=== PATIENT | female | born 1995 | race Caucasian/White ===

== ENCOUNTER 2021-09-30 19:08 | Emergency (ER) | payer OTHER, SELFPAY ==
[2021-09-30 19:10] VITALS: RESP 20
--- NOTE | 2021-09-30 19:22 | ED.SEIZURE ---
HPI - Seizure General Chief Complaint: Seizure Stated Complaint: sz Time Seen by Provider: 09/30/21 19:21 History of Present Illness HPI Narrative: 25-year-old female presented to the emergency room with complaints of nausea vomiting that started last night. Patient states that she took Zofran last night without any relief of her symptoms. Patient states this afternoon, she got nauseated, vomited twice and then proceeded to have a pseudoseizure . Patient denies abdominal pain, denies diarrhea, denies constipation. Patient denies fever. Related Data Allergies Allergy/AdvReac Type Severity Reaction Status Date / Time No Known Allergies Allergy Verified 12/23/15 19:46 Review of Systems Review of Systems: CONSTITUTIONAL: Denies fever, chills, or sweats. EYES: Denies visual changes, redness, or discharge. ENT: Denies rhinorrhea, congestion, sore throat, or otalgia. CARDIOVASCULAR: Denies chest pain, palpitations, or edema. RESPIRATORY: Denies cough or dyspnea. GASTROINTESTINAL: Denies abdominal pain. Reports nausea/vomiting GENITOURINARY: Denies dysuria or hematuria. SKIN: Denies rash or itching. MUSCULOSKELETAL: Denies back pain, joint pain, or myalgia. NEUROLOGIC: Denies headache, numbness, dizziness, or weakness. PSYCHIATRIC: Reports having a pseudoseizure. [facility] Past Medical History Medical History (Updated 09/30/21 @ 20:38 by Pepito Du APRN) Pseudoseizure Exam Narrative: GENERAL: Well-appearing, well-nourished, and in no acute distress. HEAD: Normocephalic, atraumatic. EYES: PERRLA and EOMI. ENT: Nares clear, no rhinorrhea or epistaxis. Mucous membranes moist. NECK: Supple. No adenopathy or masses. No carotid bruits or JVD CHEST: Clear to auscultation. No respiratory distress. No wheezes rales or rhonchi HEART: Regular rate and rhythm. No murmur heard. Normal peripheral pulses. ABDOMEN: Soft, nontender, nondistended, normal active bowel sounds. EXTREMITIES: Normal range of motion. No edema. SKIN: Warm, dry, no rash. NEURO: No focal deficits. Alert and oriented x3. PSYCH: Normal mood and affect. Course Vital Signs Vital signs: Vital Signs Respiratory Rate 20 09/30/21 19:10 Respiratory Rate 20 09/30/21 19:10 MDM - Seizure MDM Narrative Medical decision making narrative: 25-year-old female presented the emergency room complaining of nausea vomiting since last night. Patient states that she had a pseudoseizure prior to arrival. Patient was given a liter of fluid and 4 of Zofran, and states that her symptoms have resolved. CBC and CMP are unremarkable. Patient likely experiencing gastritis. Lab Data Attestation: I reviewed the patient's lab results. Result diagrams: 09/30/21 19:45 09/30/21 19:45 Labs: Lab Results 09/30/21 09/30/21 Range/Units 19:45 19:45 WBC 6.8 (4.5-10.0) K/mm3 RBC 4.64 (4.2-5.4) M/mm3 Hgb 14.1 (12.0-15.0) g/dL Hct 40.1 (37.0-47.0) % MCV 86.4 (80-100) fl MCH 30.4 (26-34) pg MCHC 35.2 (32-36) g/dl RDW 12.0 (11.5-14.5) % Plt Count 211 (150-375) k/mm3 MPV 9.3 (7.4-10.4) fl Immature Gran % (Auto) 0.1 (0-0.5) % Neut % (Auto) 80.0 H (45.5-73.1) % Lymph % (Auto) 13.9 L (18.3-44.2) % [place] % (Auto) 5.0 (2.6-8.5) % Eos % (Auto) 0.7 (0-4.4) % Baso % (Auto) 0.3 (0.2-1.2) % Lymph # (Auto) 0.94 (0.9-3.2) K/mm3 [place] # (Auto) 0.3 (0.1-0.6) K/mm3 Eos # (Auto) 0.1 (0-0.3) K/mm3 Baso # (Auto) 0.0 (0.0-0.1) K/mm3 Abs Immat Gran (auto) 0.01 (0.00-0.031) K/mm3 Absolute Neuts (auto) 5.4 (1.3-6.7) K/mm3 Absolute Nucleated RBC 0.0 (0.0-0.012) K/mm3 Nucleated RBC % 0.0 (0.0-0.2) % Sodium 138 (137-145) mmol/L Potassium 3.5 (3.4-5.0) mmol/L Chloride 104 (98-107) mmol/L Carbon Dioxide 27 (22-30) mmol/L Anion Gap 7 L (8-16) mmol/L BUN 12 (7-17) mg/dL Creatinine 0.70 (0.7-1.0) mg/dL Estim Creat Clear Calc 125 ml/min Estim
[2021-09-30] MEDS: SODIUM CHLORIDE 0.9% IV 1,000 ML 999 ML IV CONT (19:44)
[2021-09-30] MEDS: ONDANSETRON INJ 4 MG/2 ML VIAL IV PUSH (19:44)
[2021-09-30] MEDS: DICYCLOMINE HCL INJ 20 MG/2 ML VIAL IM (19:51)
[2021-09-30 19:53] LABS: Basophils Percent Auto 0.3 % (0.2-1.2); Eosinophils Absolute Auto 0.1 K/mm3 (0-0.3); Eosinophils Percent Auto 0.7 % (0-4.4); Hematocrit 40.1 % (37.0-47.0); Hemoglobin 14.1 g/dL (12.0-15.0); Immature Granulocyte Absolute 0.01 K/mm3 (0.00-0.031); Immature Granulocyte Percent A 0.1 % (0-0.5); Lymphocytes Absolute Auto 0.94 K/mm3 (0.9-3.2); Lymphocytes Percent Auto 13.9 % (18.3-44.2); Mean Corpuscular HGB Conc 35.2 g/dl (32-36); Mean Corpuscular Hemoglobin 30.4 pg (26-34); Mean Corpuscular Volume 86.4 fl (80-100); Mean Platelet Volume 9.3 fl (7.4-10.4); Monocytes Absolute Auto 0.3 K/mm3 (0.1-0.6); Neutrophils Absolute Auto 5.4 K/mm3 (1.3-6.7); Platelet Count Result 211 k/mm3 (150-375); Red Blood Count 4.64 M/mm3 (4.2-5.4); White Blood Count 6.8 K/mm3 (4.5-10.0)
[2021-09-30 20:00] VITALS: PULSE 60
[2021-09-30 20:04] LABS: Alanine Aminotransferase 20 U/L (4-35); Albumin Level 4.2 g/dL (3.5-5.1); Alkaline Phosphatase 71 U/L (38-126); Anion Gap 7 mmol/L (8-16); Aspartate Amino Transferase 25 U/L (14-36); Bilirubin,Total 2.4 mg/dL (0.2-1.3); Blood Urea Nitrogen 12 mg/dL (7-17); Calcium 8.5 mg/dL (8.4-10.2); Carbon Dioxide 27 mmol/L (22-30); Chloride 104 mmol/L (98-107); Estimated CRCL calculation 125 ml/min; Estimated Glomerular Filt Rate > 60; Glucose 98 mg/dL (65-110); Potassium 3.5 mmol/L (3.4-5.0); Sodium 138 mmol/L (137-145)
[2021-09-30 20:45] VITALS: BP 109/81; PULSE 60; RESP 19; O2SAT 100
== END 2021-09-30 21:04 | disposition home or self-care (01) ==
PROVIDERS: Emergency Provider Nurse Practitioner Family; PCP Family Medicine
DX: K29.00 Acute gastritis without bleeding (principal)
CPT/HCPCS: 36415; 80053; 85025; 96361; 96372; 96374; 99284; J0500; J2405; J7030

== ENCOUNTER 2021-11-28 19:04 | Emergency (ER) | payer OTHER, SELFPAY ==
[2021-11-28 19:34] VITALS: BP 95/49; PULSE 91; RESP 18; TEMP 36.5; O2SAT 95
--- NOTE | 2021-11-28 19:40 | PC.NURSE ---
Addendum entered by Norma Harris RN 11/28/21 19:58: Pt completely neurological intake and A&Ox4 upon leaving triage to sit in waiting room. Original Note: Pt noted to have seizure like activity in triage directly after pt stated, Am I going to be getting a bed right away? . See triage note for information on seizure like activity. Pt was seen by MD Thornton and placed to sit in bench in front of intake desk. medical technician also made aware.
[2021-11-28 20:35] LABS: Basophils Percent Auto 0.1 % (0.2-1.2); Eosinophils Percent Auto 0.3 % (0-4.4); Hematocrit 46.5 % (37.0-47.0); Hemoglobin 15.9 g/dL (12.0-15.0); Immature Granulocyte Absolute 0.02 K/mm3 (0.00-0.031); Immature Granulocyte Percent A 0.2 % (0-0.5); Lymphocytes Absolute Auto 0.84 K/mm3 (0.9-3.2); Lymphocytes Percent Auto 8.6 % (18.3-44.2); Mean Corpuscular HGB Conc 34.2 g/dl (32-36); Mean Corpuscular Hemoglobin 30.1 pg (26-34); Mean Corpuscular Volume 88.1 fl (80-100); Mean Platelet Volume 9.4 fl (7.4-10.4); Monocytes Absolute Auto 0.4 K/mm3 (0.1-0.6); Monocytes Percent Auto 4.2 % (2.6-8.5); Neutrophils Absolute Auto 8.5 K/mm3 (1.3-6.7); Neutrophils Percent Auto 86.6 % (45.5-73.1); Platelet Count Result 255 k/mm3 (150-375); Red Blood Count 5.28 M/mm3 (4.2-5.4); Red Cell Distribution Width 11.9 % (11.5-14.5); White Blood Count 9.8 K/mm3 (4.5-10.0)
[2021-11-28 20:39] LABS: Appearance Urine Clear (Clear); Bilirubin Urine 1+ (Negative); Blood Urine Negative (Negative); Color Urine Yellow (Yellow); Glucose Urine UA Negative (Negative); Ketones Urine Trace mg/dL (Negative); Leukocyte Esterase Ur 1+ LEU/UL (Negative); Nitrate Urine Negative (Negative); Protein Urine Negative (Negative); Specific Grav Ur 1.025 (1.001-1.035); Urobilinogen Urine 0.2 mg/dL (<2.0)
[2021-11-28 20:43] LABS: Bacteria Urine Trace /hpf; Mucus Urine Rare /lpf; Squamous Epithelial Cell Urine Many /hpf (Few)
[2021-11-28 20:45] LABS: Alanine Aminotransferase 22 U/L (6-35); Alkaline Phosphatase 85 U/L (38-126); Anion Gap 9 mmol/L (8-16); Aspartate Amino Transferase 26 U/L (14-36); Bilirubin,Total 2.7 mg/dL (0.2-1.3); Blood Urea Nitrogen 10 mg/dL (7-17); Calcium 9.5 mg/dL (8.4-10.2); Carbon Dioxide 27 mmol/L (22-30); Chloride 102 mmol/L (98-107); Estimated CRCL calculation 107 ml/min; Estimated Glomerular Filt Rate > 60; Glucose 99 mg/dL (65-110); Lipase 44 U/L (23-300); Potassium 3.7 mmol/L (3.4-5.0); Sodium 138 mmol/L (137-145)
[2021-11-28 20:57] LABS: Add Urine Microscopic? YES
[2021-11-28 21:00] VITALS: BP 126/74; PULSE 74; RESP 16; O2SAT 99
--- NOTE | 2021-11-28 21:00 | ED.NAVMDI ---
HPI - Nausea/Vomiting/Diarrhea General Chief complaint: Nausea/Vomiting/Diarrhea Stated complaint: N/V/D SINCE THIS MORNING Time Seen by Provider: 11/28/21 20:51 Source: patient and RN notes reviewed Mode of arrival: ambulatory Limitations: no limitations History of Present Illness HPI Narrative: This is a 26 year old female with history of anxiety and pseudoseizure who presents for evaluation of nausea, vomiting and diarrhea. Patient states she woke up this morning with nausea, vomiting and nonbloody diarrhea. She reports she is having numerous episodes of diarrhea and emesis. She also reports constant mid abdominal pain that is nonradiating. She denies cold symptoms. Related Data Allergies Allergy/AdvReac Type Severity Reaction Status Date / Time No Known Allergies Allergy Verified 12/23/15 19:46 Review of Systems Review of Systems: All systems reviewed & are unremarkable except as noted in HPI and below Constitutional: Constitutional: Denies chills and Denies fever(s) Cardiovascular: Cardiovascular: Denies chest pain Respiratory: Respiratory: Denies cough and Denies dyspnea Gastrointestinal: Gastrointestinal: Reports abdominal pain, Reports diarrhea, Reports nausea and Reports vomiting Genitourinary: Genitourinary: Denies hematuria [facility] Past Medical History Medical History (Updated 11/28/21 @ 23:50 by Andree Yadav MD) Anxiety Pseudoseizure Surgical History Surgical History (Updated 11/28/21 @ 22:03 by Andree Yadav MD) History of appendectomy Social History Social History (Updated 11/28/21 @ 22:04 by Andree Yadav MD) Smoking status: Never smoker Exam Const: General: alert Orientation/consciousness: patient oriented x3 Eyes: EOM: EOMs intact bilaterally Resp: Effort & Inspection: normal respiratory effort and no retractions Auscultation: clear to auscultation bilaterally Cardio: Rate: regular rate Rhythm: regular rhythm Heart sounds: no murmurs GI: GI Palp: Yes Soft to palpation, Yes Tenderness to palpation present (GI) (epigastric, LUQ), No Guarding due to palpation present (GI) and No Rigid due to palpation Auscultation: normal bowel sounds Skin: General skin exam: normal color Rashes: no rashes Neuro: General: patient oriented x3, moves all extremities and CN's II-XI intact bilaterally Psych: Mental Status: mental status grossly normal Affect: normal affect Course Reevaluation(s) Reevaluation #1: Patient states she feels much better and she is ready for discharge home. She denies nausea, vomiting or abdominal pain. She has been able to drink water. labs are unremarkable. Date: 11/28/21 Time: 23:49 Vital Signs Vital signs: Vital Signs Temperature 97.7 F 11/28/21 19:34 Pulse Rate 91 11/28/21 19:34 Respiratory Rate 18 11/28/21 19:34 Blood Pressure 95/49 L 11/28/21 19:34 Pulse Oximetry 95 11/28/21 19:34 Temperature 97.8 F 11/28/21 22:08 Pulse Rate 72 11/29/21 00:01 Respiratory Rate 16 11/29/21 00:01 Blood Pressure 130/72 11/29/21 00:01 Pulse Oximetry 98 11/29/21 00:01 MDM - Nausea/Vomiting/Diarrhea Lab Data Attestation: I reviewed the patient's lab results. Result diagrams: 11/28/21 20:30 11/28/21 20:30 Labs: Lab Results 11/28/21 11/28/21 11/28/21 Range/Units 20:30 20:30 20:30 WBC 9.8 (4.5-10.0) K/mm3 RBC 5.28 (4.2-5.4) M/mm3 Hgb 15.9 H (12.0-15.0) g/dL Hct 46.5 (37.0-47.0) % MCV 88.1 (80-100) fl MCH 30.1 (26-34) pg MCHC 34.2 (32-36) g/dl RDW 11.9 (11.5-14.5) % Plt Count 255 (150-375) k/mm3 MPV 9.4 (7.4-10.4) fl Immature Gran % (Auto) 0.2 (0-0.5) % Neut % (Auto) 86.6 H (45.5-73.1) % Lymph % (Auto) 8.6 L (18.3-44.2) % [place] % (Auto) 4.2 (2.6-8.5) % Eos % (Auto) 0.3 (0-4.4) % Baso % (Auto) 0.1 L (0.2-1.2) % Lymph # (Auto) 0.84 L (0.9-3.2) K/mm3 [place] # (Auto) 0.4 (0.1-0.6) K/mm3
[2021-11-28] MEDS: ONDANSETRON INJ 4 MG/2 ML VIAL IV PUSH (21:28)
[2021-11-28] MEDS: DICYCLOMINE HCL INJ 20 MG/2 ML VIAL IM (21:28)
[2021-11-28] MEDS: SODIUM CHLORIDE 0.9% IV 1,000 ML 999 ML IV CONT (21:29)
[2021-11-28] MEDS: PANTOPRAZOLE SODIUM IV 40 MG VIAL IV PUSH (21:29)
[2021-11-28 22:08] VITALS: BP 116/70; PULSE 70; RESP 16; TEMP 36.6; O2SAT 100
[2021-11-29 00:01] VITALS: BP 130/72; PULSE 72; RESP 16; O2SAT 98
== END 2021-11-29 00:04 | disposition home or self-care (01) ==
PROVIDERS: Emergency Provider General Practice; PCP Family Medicine
DX: K52.9 Noninfective gastroenteritis and colitis, unspecified (principal)
CPT/HCPCS: 36415; 80053; 81001; 81025; 83690; 85025; 87086; 96361; 96372; 96374; 96375; 99284; C9113; J0500; J2405; J7030

== ENCOUNTER 2022-06-09 11:32 | Emergency (ER) | payer OTHER, SELFPAY ==
[2022-06-09 12:55] VITALS: BP 133/84; PULSE 93; RESP 16; TEMP 38.1; O2SAT 100
--- NOTE | 2022-06-09 13:38 | ED.URI ---
HPI - URI/Sore Throat General Chief Complaint: Upper Respiratory Infection Stated Complaint: sob/cp Time Seen by Provider: 06/09/22 13:41 Source: patient, RN notes reviewed and old records reviewed Mode of arrival: ambulatory Limitations: no limitations History of Present Illness HPI Narrative: 26-year-old female presents to the [facility] with complaints of cough and congestion since 2:00 a.m. has not taken anything for her symptoms. Exposures to RSV Patient also reports low back pain. States that her mom has bulging discs. States her back pain has been significant since her last was it was in 2019, 2 years ago. Denies any abdominal pain. No urinary symptoms. No frequency, urgency or burning. No loss or retention of bowel or bladder. No rashes noted. No saddle anesthesia. No numbness or tingling in extremities Related Data Home Medications Medication Instructions Recorded Confirmed aripiprazole 5 mg tablet 5 mg DAILY 06/09/22 06/09/22 buspirone 7.5 mg tablet 7.5 mg DAILY 06/09/22 06/09/22 clonazepam 0.5 mg tablet 0.5 mg DAILY 06/09/22 06/09/22 levonorgestrel 20 mcg/24 hours (8 1 device intrauterine ONCE 06/09/22 06/09/22 yrs) 52 mg intrauterine device (Mirena) Allergies Allergy/AdvReac Type Severity Reaction Status Date / Time No Known Allergies Allergy Verified 06/09/22 13:12 Review of Systems Review of Systems: All systems reviewed & are unremarkable except as noted in HPI and below Constitutional: Constitutional: Reports no additional constitutional complaints, Denies chills and Denies fever(s) Eyes: Eyes: Reports no additional eye complaints ENT: Reports system reviewed and no additional complaints, except as documented Cardiovascular: Cardiovascular: Reports no additional cardiovascular complaints Respiratory: Respiratory: Reports as per HPI, Reports chest congestion, Reports cough and Denies dyspnea Gastrointestinal: Gastrointestinal: Reports no additional gastrointestinal complaints Musculoskeletal: Musculoskeletal: Reports as per HPI Integumentary/Breasts: Skin/Breast: Reports system reviewed and no additional complaints, except as docu Neurologic: Reports system reviewed and no additional complaints, except as documented Psychiatric: Psychiatric: Reports no additional psychiatric complaints Allergic/Immunologic: Allergic/Immunologic: Reports no additional allergic/immunologic complaints PMFSH Past Medical History Medical History Anxiety Pseudoseizure Surgical History Surgical History History of appendectomy Social History Social History Smoking status: Never smoker Comments At the time of my signature, I reviewed and agree with the nursing past medical, surgical, social, and family history. There is no relevant family history pertinent to the patient complaint. Exam Const: General: healthy appearing, no acute distress, well developed, alert, uncomfortable and well nourished Nutritional Appearance: well nourished and obese Orientation/consciousness: patient oriented x3 Limitations: no limitations HENMT: Head: normal to inspection Ears: external ears normal, TM's normal bilaterally and EAC's normal Face/Nose/Sinus: Normal external nose present Face and sinus: normal facial exam Throat: posterior oropharynx normal and uvula midline Eyes: General: appearance normal, both eyes and all related structures Conjunctivae: conjunctivae normal Pupils: Equal, round and reactive pupils present Neck: Neck: normal visual inspection, full ROM, no lymphadenopathy and no meningeal signs Chest: Chest palpation & inspection: normal inspection of the chest Resp: Effort & Inspection: normal respiratory effort and no use of accessory muscles Auscultation: clear to auscultation bilaterally, no crackles, no rales, no
== END 2022-06-09 13:57 | disposition home or self-care (01) ==
PROVIDERS: Emergency Provider Nurse Practitioner; PCP Family Medicine
DX: J06.9 Acute upper respiratory infection, unspecified (principal); M54.50 Low back pain, unspecified; F41.9 Anxiety disorder, unspecified
CPT/HCPCS: 99213; G0463

== ENCOUNTER 2023-04-24 12:00 | Emergency (ER) | payer OTHER, SELFPAY ==
[2023-04-24] VITALS (13 sets, daily range): BP systolic 84–115; BP diastolic 61–92; PULSE 68–82; RESP 11–18; TEMP 36.5; O2SAT 99–100
--- NOTE | 2023-04-24 14:02 | PC.NURSE ---
told by Leticia Nava RN that pt standing outside her door requesting to leave. IV removed per Leticia TERRAZAS. Pt left - states her gait was steady.
== END 2023-04-24 14:22 | disposition left against medical advice (07) ==
LOC: ANHED 14:10
PROVIDERS: PCP Family Medicine
DX: G40.909 Epilepsy, unspecified, not intractable, without status epilepticus (principal)
CPT/HCPCS: 99199

== ENCOUNTER 2023-08-04 17:15 | Emergency (ER) | payer OTHER, SELFPAY ==
--- NOTE | 2023-08-04 17:22 | ED.GENADULT ---
HPI - General Adult General Chief complaint: Upper Respiratory Infection Stated complaint: cough,chest congestion Time Seen by Provider: 08/04/23 17:35 Source: patient, RN notes reviewed and old records reviewed Mode of arrival: ambulatory Limitations: no limitations History of Present Illness HPI narrative: 27-year-old female presents to the [facility] with complaints of chest congestion and cough for 2 days. States that she took 1 leftover amoxicillin and 1 left over prednisone. Denies taking any other medications Denies fevers Onset (ago): day(s) (2) Related Data Home Medications Medication Instructions Recorded Confirmed clonazepam 0.5 mg tablet 0.5 mg DAILY 06/09/22 08/04/23 levonorgestrel 21 mcg/24 hours (8 1 device intrauterine ONCE 06/09/22 08/04/23 yrs) 52 mg intrauterine device (Mirena) lamotrigine 100 mg tablet mg 08/04/23 08/04/23 Allergies Allergy/AdvReac Type Severity Reaction Status Date / Time No Known Allergies Allergy Verified 08/04/23 17:42 Review of Systems Review of Systems: All systems reviewed & are unremarkable except as noted in HPI and below Constitutional: Constitutional: Reports no additional constitutional complaints Eyes: Eyes: Reports no additional eye complaints ENT: Reports as per HPI and Reports nasal congestion Cardiovascular: Cardiovascular: Reports no additional cardiovascular complaints, Denies chest pain and Denies dyspnea Respiratory: Respiratory: Reports as per HPI, Reports chest congestion, Reports cough and Denies dyspnea Gastrointestinal: Gastrointestinal: Reports no additional gastrointestinal complaints, Denies abdominal pain, Denies nausea and Denies vomiting Musculoskeletal: Musculoskeletal: Reports no additional musculoskeletal complaints Integumentary/Breasts: Skin/Breast: Reports system reviewed and no additional complaints, except as docu Neurologic: Reports system reviewed and no additional complaints, except as documented Psychiatric: Psychiatric: Reports no additional psychiatric complaints Allergic/Immunologic: Allergic/Immunologic: Reports no additional allergic/immunologic complaints PMFSH Past Medical History Medical History Anxiety Pseudoseizure Surgical History Surgical History History of appendectomy Social History Social History Smoking status: Never smoker Comments At the time of my signature, I reviewed and agree with the nursing past medical, surgical, social, and family history. There is no relevant family history pertinent to the patient complaint. Exam Const: General: cooperative, healthy appearing, comfortable, no acute distress, well developed, alert and well nourished Nutritional Appearance: well nourished and obese Orientation/consciousness: patient oriented x3 Limitations: no limitations HENMT: Head: normal to inspection Ears: hearing grossly normal bilaterally, external ears normal, EAC's normal and TM abnormal wth effusion serous bilateral and scarred bilateral; not bulging, not erythematous and with no loss of landmarks Face/Nose/Sinus: Normal external nose present, Normal nares present, Normal nasal mucous membranes and turbinates present, normal facial exam and face symmetric Face and sinus: normal facial exam and face symmetric Mouth: Yes Normal oral and palatal mucosa present, Yes lip normal and Yes moist mucous membranes Throat: posterior oropharynx normal, uvula midline and postnasal drainage Eyes: General: appearance normal, both eyes and all related structures Alignment and Position: alignment normal Periorbital: periorbital findings normal Pupils: Equal, round and reactive pupils present EOM: EOMs intact bilaterally Neck: Neck: normal visual inspection, full ROM, no lymphadenopathy and no meningeal signs Chest: Chest palpation & insp
[2023-08-04 17:36] VITALS: BP 134/92; PULSE 96; RESP 18; TEMP 36.9; O2SAT 98
== END 2023-08-04 18:02 | disposition home or self-care (01) ==
PROVIDERS: Emergency Provider Nurse Practitioner; PCP Family Medicine
DX: J40 Bronchitis, not specified as acute or chronic (principal); F41.9 Anxiety disorder, unspecified
CPT/HCPCS: 99213; G0463

== ENCOUNTER 2024-03-11 19:28 | Emergency (ER) | payer OTHER, SELFPAY ==
[2024-03-11 19:32] VITALS: BP 134/96; PULSE 98; RESP 19; TEMP 36.6; O2SAT 99
[2024-03-11 19:37] VITALS: O2SAT 99
[2024-03-11 19:47] LABS: Basophils Percent Auto 0.3 % (0.2-1.2); Eosinophils Absolute Auto 0.1 K/mm3 (0-0.3); Eosinophils Percent Auto 1.7 % (0-4.4); Hematocrit 40.6 % (37.0-47.0); Hemoglobin 13.9 g/dL (12.0-15.0); Immature Granulocyte Absolute 0.01 K/mm3 (0.00-0.031); Immature Granulocyte Percent A 0.2 % (0-0.5); Lymphocytes Absolute Auto 1.84 K/mm3 (0.9-3.2); Lymphocytes Percent Auto 31.1 % (18.3-44.2); Mean Corpuscular HGB Conc 34.2 g/dl (32-36); Mean Corpuscular Hemoglobin 30.2 pg (26-34); Mean Corpuscular Volume 88.1 fl (80-100); Mean Platelet Volume 9.5 fl (7.4-10.4); Monocytes Absolute Auto 0.4 K/mm3 (0.1-0.6); Monocytes Percent Auto 5.9 % (2.6-8.5); Neutrophils Absolute Auto 3.6 K/mm3 (1.3-6.7); Neutrophils Percent Auto 60.8 % (45.5-73.1); Platelet Count Result 223 k/mm3 (150-375); Red Blood Count 4.61 M/mm3 (4.2-5.4); Red Cell Distribution Width 11.6 % (11.5-14.5); White Blood Count 5.9 K/mm3 (4.5-10.0)
--- NOTE | 2024-03-11 19:49 | ED.GENADULT ---
HPI - General Adult General Chief complaint: Seizure Stated complaint: seizure Time Seen by Provider: 03/11/24 19:35 History of Present Illness HPI narrative: Patient is a 28-year-old female who presents to the emergency department this evening due to seizure episode that occurred at work. Patient was assisted to the ground by staff members prior to seizure activity as patient had an aura. Patient does have a history of pseudoseizures and states that she has had multiple CTs MRIs in the past and follows up with a neurologist. EMS states the patient was postictal when they arrived. On route to the emergency department EMS states that patient had another seizure-like activity in which they administered 5 mg of IV Versed. Upon arrival to the ED patient is awake but drowsy. She denies any recent illness, any recent falls or trauma. No additional symptoms or concerns at this time. Related Data Home Medications Medication Instructions Recorded Confirmed clonazepam 0.5 mg tablet 0.5 mg DAILY 06/09/22 08/04/23 levonorgestrel 21 mcg/24 hr (up to 1 device intrauterine ONCE 06/09/22 08/04/23 8 years) 52 mg intrauterine device (Mirena) lamotrigine 100 mg tablet mg 08/04/23 08/04/23 Allergies Allergy/AdvReac Type Severity Reaction Status Date / Time No Known Allergies Allergy Verified 08/04/23 17:42 Review of Systems Review of Systems: All systems are reviewed and are negative unless stated otherwise in the HPI. [facility] Past Medical History Medical History Anxiety Pseudoseizure Surgical History Surgical History History of appendectomy Social History Social History Smoking status: Never smoker Exam Narrative: General: Alert, awake, afebrile, in no acute distress. HEENT: PERRL, no rhinorrhea, no post nasal drip, oropharynx clear. Cardiovascular: Regular rate and rhythm, no murmurs, rubs or gallops, no peripheral edema. Respiratory: Clear to auscultation bilaterally, no tachypnea, no wheezing, no rhonchi, no rubs, no respiratory distress. Abdomen: Soft, nontender, nondistended, no rebound, no guarding, no peritoneal signs. Musculoskeletal: No joint swelling or deformity, normal muscle tone. Skin: No rashes or petechia, no signs of infection. Neurological: Alert and oriented to person, place, and time. Follows all commands. No focal deficits, speech is clear and fluent. Course Vital Signs Vital signs: Vital Signs Temperature 97.8 F 03/11/24 19:32 Pulse Rate 98 03/11/24 19:32 Respiratory Rate 19 03/11/24 19:32 Blood Pressure 134/96 H 03/11/24 19:32 Pulse Oximetry 99 03/11/24 19:32 Oxygen Delivery Room Air 03/11/24 19:32 Temperature 97.8 F 03/11/24 19:32 Pulse Rate 98 03/11/24 19:32 Respiratory Rate 19 03/11/24 19:32 Blood Pressure 134/96 H 03/11/24 19:32 Pulse Oximetry 99 03/11/24 19:37 Oxygen Delivery Room Air 03/11/24 19:37 Medical Decision Making MDM Narrative Medical decision making narrative: The patient was evaluated by myself in the emergency department. History is obtained from patient who is an independent historian and physical exam was performed. External medical records were reviewed at this time. IV was established and pertinent tests were ordered. EKG was obtained which revealed sinus rhythm rate of 70 beats per minute, no evidence of acute ischemia. EKG was independently interpreted by me and is currently pending official cardiology read. Laboratory results obtained revealing no acute process. Urinalysis unremarkable. Differential diagnosis considerations include seizure disorder, dehydration, electrolyte derangements. Comorbidities impacting this visit include history of stones or seizures. I have evaluated and discussed social determinants of health with the shaun
[2024-03-11 19:58] LABS: Alanine Aminotransferase 42 U/L (6-35); Albumin Level 4.3 g/dL (3.5-5.1); Alkaline Phosphatase 82 U/L (38-126); Anion Gap 12 mmol/L (4-12); Aspartate Amino Transferase 33 U/L (14-36); Bilirubin,Total 0.6 mg/dL (0.2-1.3); Blood Urea Nitrogen 15 mg/dL (7-17); Calcium 8.8 mg/dL (8.4-10.2); Carbon Dioxide 24 mmol/L (22-30); Chloride 99 mmol/L (98-107); Creatine Kinase 84 U/L (30-135); Estimated CRCL calculation 111 ml/min; Estimated Glomerular Filt Rate > 60; Glucose 98 mg/dL (65-110); Potassium 3.5 mmol/L (3.4-5.0); Sodium 135 mmol/L (137-145)
[2024-03-11 20:07] LABS: SPREG INTERNAL CONTROL Positive; Serum Qual hCG Negative
[2024-03-11 21:13] LABS: Add Urine Microscopic? NO; Appearance Urine Clear (Clear); Bilirubin Urine Negative (Negative); Blood Urine Negative (Negative); Color Urine Yellow (Yellow); Glucose Urine UA Negative (Negative); Ketones Urine Negative (Negative); Leukocyte Esterase Ur Negative LEU/UL (Negative); Nitrate Urine Negative (Negative); Protein Urine Negative (Negative); Specific Grav Ur 1.011 (1.001-1.035); Urobilinogen Urine 0.2 mg/dL (<2.0); pH Urine 6.5 (5.0-9.0)
[2024-03-11 21:40] VITALS: BP 130/86; PULSE 78; RESP 14; O2SAT 100
--- NOTE | 2024-03-12 03:23 | ECG_ITS ---
Test Date: 2024-03-11 19:37:53 Measurements Intervals [place] Rate: 70 P: 31 DC: 152 QRS: 25 QRSD: 102 T: 14 QT: 392 QTc: 425 Interpretive Statements SINUS RHYTHM NORMAL ELECTROCARDIOGRAM No previous ECG available for comparison Electronically Signed On 03-13-2024 12:52:52 CDT by Compa Mccoy M.D.
== END 2024-03-11 21:41 | disposition home or self-care (01) ==
PROVIDERS: Emergency Provider Emergency Medicine; PCP Family Medicine
DX: R56.9 Unspecified convulsions (principal); F41.9 Anxiety disorder, unspecified; Z97.5 Presence of (intrauterine) contraceptive device; Z79.899 Other long term (current) drug therapy
CPT/HCPCS: 36415; 80053; 81003; 82550; 83605; 83735; 84703; 85025; 93005; 99283

== ENCOUNTER 2024-06-25 08:31 | Emergency (ER) | payer SELFPAY ==
--- NOTE | 2024-06-25 08:45 | ED_ITS ---
HPI - URI/Sore Throat General Chief Complaint: Upper Respiratory Infection Stated Complaint: cough,irritated throat Time Seen by Provider: 06/25/24 09:27 Source: patient and RN notes reviewed Mode of arrival: ambulatory Limitations: no limitations History of Present Illness HPI Narrative: 28-year-old female presents concern for 3 day history of cough and irritated throat. She denies fever, body aches, chills, sweats. She denies taking any medications for her symptoms. Her son has similar symptoms MD elicited complaint: cough and sore throat Related Data Home Medications ?Medication ?Instructions ?Recorded ?Confirmed ?Last Taken ?Type clonazepam 0.5 mg tablet 0.5 mg DAILY 06/09/22 08/04/23 Unknown History levonorgestrel 21 mcg/24 hr (up to 1 device intrauterine ONCE 06/09/22 08/04/23 Unknown History 8 years) 52 mg intrauterine device (Mirena) lamotrigine 100 mg tablet mg 08/04/23 08/04/23 Unknown History Allergies Allergy/AdvReac Type Severity Reaction Status Date / Time No Known Allergies Allergy Verified 08/04/23 17:42 Review of Systems Review of Systems: CONSTITUTIONAL: Denies malaise, chills, sweats, or fever. EYES: Denies visual changes, redness, or discharge. ENT: Denies rhinorrhea, congestion, sinus pain, otalgia. Reports sore throat. CARDIOVASCULAR: Denies chest pain, palpitations, or edema. RESPIRATORY: Reports cough. Denies dyspnea. GASTROINTESTINAL: Denies abdominal pain, nausea, vomiting, diarrhea SKIN: Denies rash or itching. MUSCULOSKELETAL: Denies myalgia. NEUROLOGIC: Denies headache. All systems reviewed & are unremarkable except as noted in HPI and below PMFSH Past Medical History Medical History Anxiety Pseudoseizure Surgical History Surgical History History of appendectomy Social History Social History Smoking status: Never smoker Comments At time of signature, agree with nursing past medical, surgical, social and family history. There is no relevant family history pertinent to the presenting complaint Exam Narrative: GENERAL: Well-appearing, well-nourished, and in no acute distress. HEAD: Normocephalic EYES: PERRLA, conjunctivae clear ENT: Nares clear, turbinates edematous and erythematous, clear discharge. Mucous membranes moist. TM pearly de león with dull light reflex bilaterally; no tragal tenderness. Oropharynx erythematous without lesions. Tonsils not enlarged and without exudate, no drooling, no hoarseness, no trismus, uvula midline. NECK: Supple. No lymphadenopathy CHEST: Clear to auscultation, breath sounds equal. No wheezing, rhonchi, rales, or stridor. No respiratory distress, speaks in full sentences. HEART: Regular rate and rhythm. No murmur heard. SKIN: Warm, dry, no rash. NEURO: Alert and oriented x3. PSYCH: Normal mood and affect Course Course Emergency Course: Patient is aware of diagnosis, understands and agrees to treatment plan. Anticipatory guidance given. Patient agrees to follow-up as directed and is aware of reasons to seek care at the emergency department. Portions of this record may have been created with voice recognition software Level of Care: [facility] Visit Vital Signs Vital signs: Reviewed. MDM - URI/Sore Throat MDM Narrative Medical decision making narrative: Differential diagnosis considered: Sanchez virus, strep pharyngitis, allergic rhinitis, upper respiratory tract infection, sinusitis, rhinosinusitis, nasopharyngitis. viral pharyngitis, otitis media, otitis externa, pneumonia, bronchitis, viral cough syndrome, viral syndrome, and influenza. Exam findings show no acute concerns or changes; patient is non-toxic appearing and is in no distress. Patient is appropriate for outpatient treatment and follow-up. Lab Data Attestation: I reviewed the patient's lab results. Critical Care Time Critical Care Time Critical Care Time: No Discharge Plan Discharge Clinical Impression: Upper respiratory infection Patient Disposition: Home, Self-Care Condition: Stable Instructions: Upper Respiratory Infection (ED) Additional Instructions: Your rapid strep swab was negative today at [facility]. A throat culture will be sent to the laboratory for further testing. If the test is positive, you will receive a phone call within 48 hours and an appropriate antibiotic will be initiated at that time. Your symptoms are likely due to a viral illness, which is not treated with antibiotics. Viral symptoms can be present for up to a few weeks. -Alternate Tylenol and Motrin per package directions for fever or pain. -Antihistamine medication such as Benadryl at night and Zyrtec during the day can help improve symptoms. -Eat and drink things that are easy to swallow, like tea or soup, or popsicles to suck on. -Oral rinses such as: Salt water gargles and/or may use topical anesthetic (eg. Chloraseptic spray) or lozenges to relieve dryness or throat pain). -Frequent hand washing or hand traffic control operator is one of the best ways to prevent spread of infection. -Follow up with primary care provider in 2-3 days if condition is not improving; or seek ER visit if you have trouble breathing, cannot drink enough fluids, have muffled voice, difficulty opening your mouth, or severe swelling. Patient Language: Zambian Prescriptions: New dextromethorphan-guaifenesin [Mucinex DM] 60-1,200 mg tablet extended release 12 hr 1 tablet PO Q12H Qty: 12 0RF No Action lamotrigine 100 mg tablet prednisone 20 mg tablet See Rx Instructions .Route .COMPLEX Qty: 9 0RF Rx Instructions: Take 40 mg daily for 3 days, 20 mg daily for 3 days albuterol sulfate 90 mcg/actuation HFA aerosol inhaler 2 puff inhalation QID PRN (Reason: shortness of breath or wheezing) Qty: 6.7 0RF (DME) Aerochamber MV Spacer See Rx Instructions .Route Qty: 1 0RF Rx Instructions: As directed clonazepam 0.5 mg tablet 0.5 mg DAILY Mirena 20 mcg/24 hours (8 yrs) 52 mg Intrauterine Device 1 device INTRAUTERINE ONCE Rx Instructions: as a single dose Follow-up/Referrals: PHYSICIAN NOT ON STAFF,NONSTAFF [Primary Care Provider] - Time of Disposition: 09:55
[2024-06-25 08:50] VITALS: BP 136/98; PULSE 78; RESP 19; TEMP 36.2; O2SAT 100
[2024-06-25 09:50] LABS: EDSTREPNEGPOS1 Negative (Negative)
== END 2024-06-25 10:00 | disposition home or self-care (01) ==
PROVIDERS: Emergency Provider Nurse Practitioner
DX: J06.9 Acute upper respiratory infection, unspecified (principal); F41.9 Anxiety disorder, unspecified; R56.9 Unspecified convulsions
CPT/HCPCS: 87081; 87880; 99213; G0463

== ENCOUNTER 2024-12-08 09:35 | Emergency (ER) | payer OTHER, SELFPAY ==
--- OUTSIDE RECORDS SUMMARY | 2024-12-08 09:37 | XMS_ITS | Referral Summary ---
Author Organization [facility] Address [address] [place] [address] Care Team Providers Care Yard Rigger Name Role Phone Unknown, Notinfile Primary Care Provider Unavail able Allergies No known active allergies Medications ARIPiprazole (ABILIFY) 2 mg tablet Take 1 tablet (2 mg total) by mouth daily Active clonazePAM (KlonoPIN) 0.5 mg tablet Take 1 tablet (0.5 mg total) by mouth 2 (two) times a day as needed 05/25/2021 Active prochlorperazin e (COMPAZINE) 10 mg tablet Take 1 tablet (10 mg total) by mouth 2 (two) times a day as needed for nausea or vomiting 10 tablet 05/28/2024 Active Active Problems Problem Noted Date Diagnosed Date Chronic nonintractable headache 06/02/2024 Assessment & Plan (06/02/2024 11:51 AM DEPUTY PROSECUTING ATTORNEY): No papilledema on multiple exams, HVF and OCT without concerning findings. Okay to resume eye care locally or call if any visual changes. Social History Tobacco Use Types Packs/Day Years Used Date Smoking Tobacco: Never Tobacco Cessation:Counseling Given: Not Answered Personal Safety Answer Date Recorded Have you ever been in or are you currently in a harmful physical or emotional relationship or is someone making you feel afraid or unsafe? Denies 05/28/2024 Comments No Sex and Gender Information Value Date Recorded Sex Assigned at Not on file Legal Sex Female 4:24 AM DEPUTY PROSECUTING ATTORNEY Gender Identity Not on file Sexual Orientation Not on file Last Filed Vital Signs Vital Sign Reading Time Taken Comments Blood Pressure 128/95 05/28/2024 3:31 PM DEPUTY PROSECUTING ATTORNEY Pulse 70 05/28/2024 3:31 PM DEPUTY PROSECUTING ATTORNEY Temperature 36.7 C (98.1 F) 05/28/2024 11:51 AM DEPUTY PROSECUTING ATTORNEY Respiratory Rate 16 05/28/2024 3:31 PM DEPUTY PROSECUTING ATTORNEY Oxygen Saturation 99% 05/28/2024 3:31 PM DEPUTY PROSECUTING ATTORNEY Inhaled Oxygen Concentration - - Weight 104.3 kg (229 lb 15 oz) 05/28/2024 11:51 AM DEPUTY PROSECUTING ATTORNEY Height 165.1 cm (5' 5) 05/28/2024 11:51 AM DEPUTY PROSECUTING ATTORNEY Body Mass Index 38.26 05/28/2024 11:51 AM DEPUTY PROSECUTING ATTORNEY Plan of Treatment Not on file Insurance Care Teams Yard Rigger Relationship Specialty Start Date End Date Unknown, Notinfile PCP - General 05/22/24
--- OUTSIDE RECORDS SUMMARY | 2024-12-08 09:37 | XMS_ITS | Clinical Summary ---
Author Organization [facility] Address [address] [place] [address] Care Team Providers Care Director Veterinary Name Role Phone Unavailable Primary Care Provider Unavailabl e Source Comments [facility],non-owned Affiliates and Associated Physician Practices is amultiple site organization consisting of ambulatory clinics and hospital sitesin [place], [place], [place] and [place]. This disclosure is being madepursuant to the Care Everywhere program and may not contain all information available regarding this patient. Last updated 18.[facility] Interactive Project Allergies No known active allergies Medications * Be aware that medications may not be up to date on this document. Alwaysverify current medications with the patient. clonazePAM (KLONOPIN) 0.5 MG tablet Take 0.5 mg by mouth 2 times daily as needed for Anxiety Active Active Problems Problem Noted Date Diagnosed Date Acute left ankle pain 11/04/2015 Left ankle pain 10/07/2015 Syncope 01/23/2013 Immunizations Immunization Administration Dates Next Due INFLUENZA VACCINE 08/01/2013 Social History Tobacco Use Types Packs/Day Years Used Date Smoking Tobacco: Never Smokeless Tobacco: Never Alcohol Use Standard Drinks/Week Comments No 0 (1 standard drink = 0.6 oz pur e alcohol) Comments No Sex and Gender Information Value Date Recorded Sex Assigned at Not on file Legal Sex Female 5:38 AM MANAGEMENT REP Gender Identity Not on file Sexual Orientation Not on file Last Filed Vital Signs Vital Sign Reading Time Taken Comments Blood Pressure 133/94 02/27/2014 11:49 PM CDT Pulse 82 02/27/2014 11:49 PM CDT Temperature 37.2 C (99 F) 11/04/2015 1:31 PM CDT Respiratory Rate 18 11/04/2015 1:31 PM CDT Oxygen Saturation 100% 02/26/2014 5:33 AM CDT Inhaled Oxygen Concentration - - Weight 93.4 kg (205 lb 14.6 oz) 11/04/2015 1:31 PM CDT Height 169 cm (5' 6.54) 11/04/2015 1:31 PM CDT Body Mass Index 32.7 11/04/2015 1:31 PM CDT Plan of Treatment Health Maintenance Due Date Last Done Comments PAP SMEAR 1997 HIV SCREENING 2012 HEPATITIS C SCREENING 11/05/2015 DTAP/TDAP/TD VACCINES (1 - Tdap) 2016 HEPATITIS B VACCINE (1 of 3 - 19+ 3-dose series) 2016 COVID-19 VACCINE (1 - 2023-2 5 season) 2024 DEPRESSION SCREENING 07/16/2024 INFLUENZA VACCINE (Season Ended) 2025 08/01/19 14 ZOSTER VACCINE (1 of 2) 11/10/2047 HIB VACCINE Aged Out No longer eligi ble based on patient's age to complete this topic HPV VACCINE Aged Out No longer eligi ble based on patient's age to complete this topic MENINGOCOCCAL (Group B) VACC INE SHARED DECISION-MAKING Aged Out No longer eligibl e based on patient's age to complete this topic MENINGOCOCCAL GROUPS A/C/Y/W VACCINE Aged Out No longer eligible b ased on patient's age to complete this topic PNEUMOCOCCAL VACCINE Aged Out No long er eligible based on patient's age to complete this topic Insurance [facility]
--- OUTSIDE RECORDS SUMMARY | 2024-12-08 09:37 | XMS_ITS | Clinical Summary ---
Author Organization [facility] Address [address] [place] [address] Care Team Providers Care Heel Scorer Name Role Phone Unknown, Notinfile Primary Care [...] 06/02/2024 Assessment & Plan (06/02/2024 11:51 AM TUBE BUILDER AIRPLANE): No papilledema on multiple exams, HVF and OCT without concerning findings. Okay to resume eye care locally or call if any visual changes. Surgical History Surgery Date Site/Laterality Comments SECTION ANKLE LIGAMENT RECONSTRUCTION Left APPENDECTOMY Social History Tobacco Use Types Packs/Day Years [...] on file Legal Sex Female 4:24 AM TUBE BUILDER AIRPLANE Gender Identity Not on file Sexual Orientation Not on file Obstetrics History Last Filed Vital Signs Vital Sign Reading Time Taken Comments Blood Pressure 128/95 05/28/2024 3:31 PM TUBE BUILDER AIRPLANE Pulse 70 05/28/2024 3:31 PM TUBE BUILDER AIRPLANE Temperature 36.7 C (98.1 F) 05/28/2024 11:51 AM TUBE BUILDER AIRPLANE Respiratory Rate 16 05/28/2024 3:31 PM TUBE BUILDER AIRPLANE Oxygen Saturation 99% 05/28/2024 3:31 PM TUBE BUILDER AIRPLANE Inhaled Oxygen Concentration - - Weight 104.3 kg (229 lb 15 oz) 05/28/2024 11:51 AM TUBE BUILDER AIRPLANE Height 165.1 cm (5' 5) 05/28/2024 11:51 AM TUBE BUILDER AIRPLANE Body Mass Index 38.26 05/28/2024 11:51 AM TUBE BUILDER AIRPLANE Plan of Treatment Health Maintenance Due Date Last Done Comments Cervical Cancer Screening 1997 Depression Screening 1997 Hepatitis C Screening 1997 Regular Well Visit/Exam 18-64 11/10/2015 Influenza Vaccine (Season Ended) 2025 04/03/2017, 07/05/2016, 08/01/2013, Additional history exists DTaP/Tdap/Td Vaccine (11 - Td or Tdap) 02/10/2030 02/11/2020, 11/16/2016, 02/02/2013, Additional history exists Hepatitis B Screening Completed 08/18/1998 , 1997, 1997 Pneumococcal vaccine <65 Completed 03/04/2001 Varicella Vaccines Completed 01/27/2009, 06/02/1999 HPV Vaccines Aged Out No longer eligi ble based on patient's age to complete this topic Insurance [facility] Care Teams Heel Scorer Relationship Specialty Start Date End Date Unknown, Notinfile PCP - General 05/22/24
--- OUTSIDE RECORDS SUMMARY | 2024-12-08 09:37 | XMS_ITS | Data Portability ---
Author Organization [facility] [place], Main Office Address [address] [place] [address] Assessment No assessment recorded. Plan of Treatment Reminders Order Date Submit Date Provider Last Modified By Organization Details Last Modified Time Details Appointments None recorded. Lab hemoglobin A1C, fingerstick 2024 025 [facility], [address] [place] [address], [address], 14:50:47 microalbumi n, dipstick, urine 2024 025 [facility] (Lab), [address] [place], [address], 5 09:00:16 lipid panel, serum 2023 024 [facility] (Lab), [address] [place], [address], 4 16:48:00 TSH, serum or plasma 2023 024 [facility] (Lab), [address] [place], [address], 4 16:48:00 CBC w/ auto diff 2023 024 [facility] (Lab), [address] [place], [address], 4 16:48:00 glycohemogl obin, total, blood 2023 024 [facility] (Lab), [address] [place], [address], 4 16:47:59 CMP, serum or plasma 2023 [facility] ([facility]), [address] [facility], [place], [address], 4 16:47:59 Referral ophthalmolo gist referral - Please call patient to schedule an appointment . Thank you. 2023 024 [email or web address], [address] , [place], [address], 08:54:14 neurologist referral - Please call patient to schedule an appointment . Thank you. 2023 024 [email or web address] Gildardo Chao MD, [address], [place], [address], 08:53:39 Procedures None recorded. Surgeries None recorded. Imaging XR, lumbosacral spine, 2 or 3 view 2023 024 [facility] - Radiology New Fax # As Of 11/05/23), [address] [place], [address], 4 11:53:03 XR, pelvis 2023 024 [facility] - Radiology New Fax # As Of 11/05/23), [address] [place], [address], 4 12:09:37 Medication Orders amoxicillin 875 mg-potassiu m clavulanate 125 mg tablet 2024 025 [facility][id number], [address] [place], [place], [id number], 5 14:52:04 lisinopril 10 mg tablet 2024 025 [facility] #98834, [address], [place], [id number], 12:56:00 lisinopril 10 mg tablet 2023 024 [facility] #[id number], [address], [place], [id number], 12:39:26 diclofenac sodium 75 mg tablet,megan yed release 2023 024 [facility] #66781, [address], [place], [id number], 10:18:42 Patient TargetsNo targets recorded. Patient Instructions Encounter Date Encounter Id Patient Instructions Last Modified By Organization Details Last Modified Time 11/28/2024 [id number] albumin urine test: about this test [facility] Not available 11/28/2024 14:42:29 Reason for Referral Neurologist Referral for Sta tus migrainosus Please call patient to schedule an appointment. Thank you. Referring Physician: Elin Chau [facility], Encounter Date: 05/28/2024 Modern [employer]cer Referral for Visual disturbance Please call patient to schedule an appointment. Thank you. Referring Physician: Elin Chau [facility], Encounter Date: 05/28/2024 Results Created Date Observation Date Name Description Value Unit Range Abnormal Flag Note LastModifiedBy Organization Detail LastModifiedTime 11/29/1911/28/2024 hemog lobin A1C, finge rstic k HgbA1C 4.8 Not Available [facility]_[address], [place], [address], 11/28/2024 14:27:36 03/19/20 24 03/19/2024 XR, lumbo sacra l spine , 2 or 3 view No observ ation record ed. [facility] [address] [place], [address], 03/19/2024 12:28:24 03/19/20 24 03/19/2024 XR, pelvi s No observ ation record ed. [facility] [address], [place], [address], 03/19/2024 12:28:25 11/20/19 25 11/19/2024 lumba r punct ure (PROC ) No observ ation record ed. [facility]: Pulmonology [address] [facility], [place], [address], 11/19/2024 13:16:26 Result Notes None recorded. Problems Name Problem SNOMED Code Status Onset Date Resolution Date Notes Provider Name and Address Organization Details Recorded Time Hypoglycemia 260426917 Active 2023 MILLIE Jose [address], [address], [place], [address], [employer] 4 10:43:26 Sacral back pain 54574916 Active 2023 MILLIE Jose [address], [address], [place], [address], [employer] 4 10:45:11 Obesity 555404163 Active 2023 MILLIE Jose [address], [address], [place], [address], [employer] 4 10:51:57 Bipolar disorder 62049225 Active 2023 MILLIE Jose [address], [address], [place], [address], [employer] 4 10:52:07 Low back pain 745661544 Active 2023 MILLIE Jose [address], [address], [place], [address], [employer] 4 12:28:56 Essential hypertension 95691162 Active 2023 Lore Cesar RN null, [place] [employer] [facility] 5 14:08:03 Migraine with aura 5757574 Active 2023 MILLIE Jose [address] [facility] [place] [address], [place], [address], [employer] [facility] [place] 4 10:28:40 Status migrainosus 836478718 Active 2023 MILLIE Jose [address] [facility], [place] [address], [place], [address], [employer] [facility] 4 10:47:52 Visual disturbance 79981532 Active 2023 MILLIE Jose [address] [facility], [place] [address], [place], [address], [employer] 4 10:48:10 Mass of body structure 245627951 Active 2024 MILLIE Jose [address] [facility], [place] [address], [place], [address], [employer] 5 12:58:13 Ketonuria 270562880 Active 2024 MILLIE Jose [address] [facility], [place] [address], [place], [address], [employer] 5 14:26:44 Fever with chills 578374458 Active 2024 MILLIE Jose [address] [address], [place], [address], [employer] 5 14:27:54 Problem Notes None recorded. Procedures Surgical History Date Name Laterality Status Provider Name and Address Organization Details Recorded Time 07/16/19 20 delivery completed Lore Cesar RN [facility] 03/19/2024 10:32:57 delivery completed Corby Cesar RN [facility] 03/19/2024 10:32:43 Appendectomy completed Lore Cesar RN [facility] 03/19/2024 10:33:05 tonsillectomy and adenoidectomy completed Lore Cesar RN [facility] 03/19/2024 10:33:19 Imaging Results None recorded. Procedure Notes None recorded. Medical Equipment None Reported. Allergies Allergen ID Allergen Name Allergen Category Reaction Reaction Severity Criticality Documentation Date Start Date Code Code System Note Provider Name and Address Organization Details Recorded Time 62771 [facility] medicatio n seizure moderate Not available 03/19/2024 12453 61 RxNorm suici catalina Lore Cesar RN [facility] 10:22:59 Medications Name Sig Start Date Stop Date Status Note LastModified by Organization Details LastModified Time quetiapine 25 mg tablet TAKE 1 TO 2 TABLETS BY MOUTH EVERY DAY IN THE MORNING 03/19 completed Not Available Not Available Not Available lamotrigine 150 mg tablet TAKE 1 TABLET BY MOUTH DAILY 03/19 completed Not Available Not Available Not Available venlafaxine ER 37.5 mg capsule,ext ended release 24 hr TK 1 C PO QD 03/19 completed Not Available Not Available Not Available venlafaxine ER 75 mg capsule,ext ended release 24 hr TK 1 C PO QD 03/19 completed Not Available Not Available Not Available lamotrigine 200 mg tablet TAKE 1 TABLET BY MOUTH DAILY 03/19 completed Not Available Not Available Not Available azithromyci n 250 mg tablet TAKE 2 TABLETS BY MOUTH FOR 1 DAY THEN TAKE 1 TABLET BY MOUTH DAILY FOR 4 DAYS 03/19 completed Not Available Not Available Not Available sumatriptan 25 mg tablet 11/21 completed Not Available Not Available Not Available prednisone 20 mg tablet TAKE 2 TABLETS BY MOUTH DAILY FOR 3 DAYS THEN TAKE 1 TABLET BY MOUTH DAILY FOR 3 DAYS 03/19 completed Not Available Not Available Not Available clonazepam 0.5 mg tablet TAKE 1 TABLET BY MOUTH EVERY DAY FOR 15 DAYS NEEDED FOR SEVERE ANXIETY 03/19 completed Not Available Not Available Not Available metronidazo le 250 mg tablet 03/19 completed Not Available Not Available Not Available clonazepam 1 mg tablet TAKE 1/2 TABLET BY MOUTH ONCE PER DAY NEEDED FOR SEVERE ANXIETY. 03/19 completed Not Available Not Available Not Available lithium carbonate ER 300 mg tablet,exte nded release TAKE 2 TABLETS BY MOUTH DAILY AT BEDTIME FOR 7 DAYS 11/21 completed Not Available Not Available Not Available topiramate 25 mg tablet Take 1 tablet every day by oral route as directed for 90 days. active Not Available Not Available No t Available acetaminoph en 300 mg-codeine 30 mg tablet TK 2 TS PO Q 6 H PRF PAIN 03/19 completed Not Available Not Available Not Available prochlorper azine maleate 10 mg tablet TAKE 1 TABLET BY MOUTH TWICE DAILY NEEDED FOR NAUSEA OR VOMITTING 11/21 completed Not Available Not Available Not Available ciprofloxac in 500 mg tablet TAKE ONE T PO BID STARTING Sunday05-20-1603/19 completed Not Available Not Available Not Available sulfamethox azole 800 mg-trimetho prim 160 mg tablet TK 1 TABLET PO Q 12 HOURS 03/19 completed Not Available Not Available Not Available tramadol 50 mg tablet TK 1 TO 2 TS PO Q 6 H PRF PAIN 03/19 completed Not Available Not Available Not Available amoxicillin 500 mg tablet 03/19 completed Not Available Not Available Not Available lithium carbonate ER 450 mg tablet,exte nded release TAKE 2 TABLETS BY MOUTH DAILY AT BEDTIME FOR 15 DAYS 11/21 completed Not Available Not Available Not Available lamotrigine 25 mg tablet TAKE 1 TABLET BY MOUTH EVERY DAY FOR TOTAL DOSE OF 175MG 03/19 completed Not Available Not Available Not Available meloxicam 7.5 mg tablet Take 1 tablet twice a day by oral route as needed for 30 days. 03/25 completed Not Available Not Available Not Available citalopram 20 mg tablet TK ONE T PO D 03/19 completed Not Available Not Available Not Available lorazepam 0.5 mg tablet TAKE 2 TO 3 TABLETS BY MOUTH DAILY NEEDED active Not Available Not Available No t Available doxycycline monohydrate 100 mg capsule 03/19 completed Not Available Not Available Not Available lisinopril 10 mg tablet TAKE 1 TABLET BY MOUTH EVERY DAY DIRECTED active Not Available Not Available No t Available divalproex ER 500 mg tablet,exte nded release 24 hr TAKE 1 TABLET BY MOUTH DAILY AT NIGHT 11/21 completed Not Available Not Available Not Available promethazin e 25 mg tablet TAKE ONE T PO EVERY SIX HOURS PRN FOR NAUSEA/VO MITING 03/19 completed Not Available Not Available Not Available polymyxin B sulfate 10,000 unit-trimet hoprim 1 mg/mL eye drops INSTILL 2 DROPS IN LEFT EYE Q 6 H FOR 4 DAYS UTD. 03/19 completed Not Available Not Available Not Available sertraline 25 mg tablet TK 1 T PO QD 03/19 completed Not Available Not Available Not Available diclofenac sodium 75 mg tablet,megan yed release TAKE 1 TABLET BY MOUTH TWICE DAILY NEEDED 05/21 completed Not Available Not Available Not Available Miconazole- 7 100 mg vaginal suppository INSERT 1 SUPPOSITO RY BY VAGINAL ROUTE D HS FOR 7 DAYS 03/19 completed Not Available Not Available Not Available hydrochloro thiazide 25 mg tablet 11/21 completed Not Available Not Available Not Available albuterol sulfate HFA 90 mcg/actuati on aerosol inhaler INHALE 2 PUFFS FOUR TIMES DAILY NEEDED 03/19 completed Not Available Not Available Not Available ondansetron 4 mg disintegrat ing tablet DIS 1 T ON THE TONGUE Q 8 H 03/19 completed Not Available Not Available Not Available lamotrigine 100 mg tablet TAKE 1 TABLET BY MOUTH EVERY DAY 03/19 completed Not Available Not Available Not Available amoxicillin 875 mg-potassiu m clavulanate 125 mg tablet TAKE 1 TABLET BY MOUTH TWICE DAILY DIRECTED X 7 DAYS active Not Available Not Available No t Available hydroxyzine pamoate 25 mg capsule 03/19 completed Not Available Not Available Not Available clonazepam 0.5 mg disintegrat ing tablet DISSOLVE 1 TABLET ON TONGUE EVERY DAY FOR 2 DAYS 11/21 completed Not Available Not Available Not Available topiramate 50 mg tablet TAKE 1 TABLET BY MOUTH EVERY DAY 03/19 completed Not Available Not Available Not Available nitrofurant oin monohydrate /macrocryst als 100 mg capsule 03/19 completed Not Available Not Available Not Available chlorhexidi ne gluconate 0.12 % mouthwash FOLLOW PACKAGE DIRECTION S 03/19 completed Not Available Not Available Not Available aripiprazol e 2 mg tablet TAKE 1 TABLET BY MOUTH DAILY 05/09 /2025 completed Not Available Not Available Not Available quetiapine ER 150 mg tablet,exte nded release 24 hr TAKE 1 TABLET BY MOUTH EVERY DAY AT NIGHT 03/19 completed Not Available Not Available Not Available ProChamber USE WITH INHALER DIRECTED 03/19 completed Not Available Not Available Not Available Lybalvi 5 mg-10 mg tablet TAKE 1 TABLET BY MOUTH DAILY 05/21 completed Not Available Not Available Not Available Vitals Date Recorded Body height Body mass index (BMI) Body weight Body temperature Oxygen saturation Oxygen saturation in Arterial blood by Pulse oximetry Heart rate Systolic And Diastolic Provider Name and Address Organization Details Last Updated DateTime 5 167.64 cm 32 kg/m2 45679.3 9 g 97.4 [degF] 98 % 98 % 75 /min 150/100 mm[Hg] Annel Messer RN [facility] [employer] 5 12:36:44 Date Recorded Body height Body mass index (BMI) Body weight Body temperature Heart rate Respiratory rate Oxygen saturation Oxygen saturation in Arterial blood by Pulse oximetry Systolic And Diastolic Provider Name and Address Organization Details Last Updated DateTime 5 167.64 cm 31.8 kg/m2 66390.7 g 97.9 [degF] 70 /min 20 /min 99 % 99 % 140/100 mm[Hg] Lore Cesar RN [facility] 5 14:12:37 Date Recorded Body weight Body mass index (BMI) Body height Body temperature Heart rate Respiratory rate Oxygen saturation Oxygen saturation in Arterial blood by Pulse oximetry Systolic And Diastolic Provider Name and Address Organization Details Last Updated DateTime 4 419947. 63 g 36.3 kg/m2 167.64 cm 97.9 [degF] 85 /min 20 /min 98 % 98 % 134/102 mm[Hg] Lore Cesar RN [facility] [place] 4 10:35:27 Date Recorded Body height Body mass index (BMI) Body weight Body temperature Heart rate Respiratory rate Oxygen saturation Oxygen saturation in Arterial blood by Pulse oximetry Systolic And Diastolic Provider Name and Address Organization Details Last Updated DateTime 4 167.64 cm 37.6 kg/m2 218786. 07 g 97.3 [degF] 71 /min 20 /min 99 % 99 % 140/96 mm[Hg] Lore Cesar RN [facility] [employer] [facility] 4 10:21:13 Date Recorded Body height Body mass index (BMI) Body weight Body temperature Heart rate Respiratory rate Oxygen saturation Oxygen saturation in Arterial blood by Pulse oximetry Systolic And Diastolic Provider Name and Address Organization Details Last Updated DateTime 167.64 cm 36.7 kg/m2 106499. 92 g 97.9 [degF] 92 /min 20 /min 99 % 99 % 160/100 mm[Hg] Lore Cesar RN [facility] [employer] [facility] 4 10:28:39 Social History Question Answer Notes LastModified by Organizat ion Details LastModified Time Tobacco Smoking Status Former Smoker Lore Cesar RN [facility] [employer] [facility] 03/19/2024 10:36:37 Do You Have An Advance Directive? No Information n ot available 03/19/2024 What Is Your Level Of Caffeine Consumption? Moderate Information not available 03/19/2024 In The 14 Days Before Symptom Onset, Have You Had Close Contact With A Laboratory-confirm ed COVID-19 While That Case Was Ill? No Information n ot available 03/19/2024 In The 14 Days Before Symptom Onset, Have You Had Close Contact With A Person Who Is Under Investigation For COVID-19 While That Person Was Ill? No Information not available 03/19/2024 What Type Of Diet Are You Following? REGULAR Information n ot available 03/19/2024 Which Illicit Or Recreational Drugs Have You Used? Mj Information not available 03/19/2024 How Many Days Of Moderate To Strenuous Exercise, Like A Brisk Walk, Did You Do In The Last 7 Days? 2 Information not available 03/19/2024 On Those Days That You Engage In Moderate To Strenuous Exercise, How Many Minutes, On Average, Do You Exercise? 45 Information not available 03/19/2024 Have There Been Any Changes To Your Family Or Social Situation? No Information no t available 03/19/2024 Are There Any Guns Present In Your Home? No Information not available 03/19/2024 Do You Use Insect Repellent Routinely? No Information not available 03/19/2024 Where Do You Live? Apartment Inform ation not available 03/19/2024 Do You Have A Medical Power Of Punch Molder? No Information not available 03/19/2024 How Many Children Do You Have? 2 Information not available 03/19/2024 Do You Have Any Pets? No Information not available 03/19/2024 What Is Your Relationship Status? Single Information not available 03/19/2024 Do You Use Your Seat Belt Or Car Seat Routinely? Yes Information not available 03/19/2024 Do You Have Smoke And Carbon Monoxide Detectors In Your Home? Yes Information not available 03/19/2024 Are You Passively Exposed To Smoke? Yes Information no t available 03/19/2024 Are There Any Smokers In Your House? No Information not available 03/19/2024 Do You Participate In Social Media? Yes Information not available 03/19/2024 What Types Of Sporting Activities Do You Participate In? Home Exercises Information not available 03/19/2024 Do You Use Sunscreen Routinely? No Information not available 03/19/2024 Have You Recently Traveled Abroad? No Information not available 03/19/2024 How Many Years Have You Used E-cigarettes Or Vape? 5 Information not available 03/19/2024 Sex: Unknown Functional Status Question Answer Note LastModified by Organizat ion Details LastModified Time Do you use any illicit or recreational drugs? Yes Information not available 03/19/2024 Do you or have you ever used any other forms of tobacco or nicotine? Yes Information not available 03/19/2024 What is your level of alcohol consumption? None Information not available 03/19/2024 Are you currently employed? 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 Current user of electronic cigarettes Information not available 03/19/2024 What is your exercise level? Occasional Information not available 03/19/2024 Mental Status Question Answer Note LastModified by Organization D etails LastModified Time Do you feel stressed (tense, restless, nervous, or anxious, or unable to sleep at night)? [id number] Information not available 05/28/2024 Family History Relationship Description Onset Age of this Age Resolved Age Notes LastModified by Organization Details LastModified Time Mother Hypertensive disorder Not available 2023 10:32:05 Maternal Grandfather Hypertensive disorder Not available 2023 10:32:05 Medical History Condition Response DIABETES, TYPE Y HEADACHES/MIGRAINES Y OTHER # 1 Y ANXIETY DISORDER Y OBESITY Y DEPRESSION (INCLUDING POST ) Y HYPERTENSION Y Gynecological History Statement/Question Response Date of Last Pap Smear Current Control Method IUD Obstetrics History GPAL:G 0 P 0 0 0 0 Past Encounters Encounter ID Performer Location Encounter Start Date Encounter Closed Date Diagnosis/Indication Diagnosis SNOMED-CT Code Diagnosis ICD10 Code Diagnosis Note [id number] Tim Gardner MD [address] [address] 03/19/2024 09:52:14 03/19/2024 11:00:55 Hypoglycemia 229834373 E16.2 Sacral back pain 7592164 3 M54.50 Has been doing stretches at home Obesity 246652030 E66.9 Bipolar disorder 7172687 4 F31.9 Sees psych [id number] Tim Gardner MD [facility] [address] [place] [address] 05/21/2024 10:12:08 05/21/2024 10:44:07 Essential hypertension 09260875 I10 Advised to check BP before taking, do not take of less than 130/80 Migraine with aura 97282 06 G43.109 Ubrelvy given in office [id number] Tim Gardner MD [address] [address] 05/28/2024 10:20:10 05/28/2024 11:00:01 Status migrainosus 512840017 G43.901 Due to risk of intercrani al hypertensi on, patient advised to FU at [facility] today Visual disturbance [address]48[address] 001 H53.9 [id number] MILLIE Jose [facility] [address] [address] 11/21/2024 12:16:07 11/24/2024 08:05:45 Essential hypertension 73515840 I10 Advised to check BP before taking, do not take of less than 130/80 Mass of arti dy structure 503185547 G93.2 Managed by neuro, just has LP and has MRI tomorrow [id number] MILLIE Jose [facility] [address] [address] 11/28/2024 14:04:00 12/02/2024 10:55:32 Ketonuria [id number] R82.4 Identified in ER Fever with chills 771120 006 R50.9 Perisisten t x 1 week, elevated WBC in ERrecent LP Health Concerns Section Related Observation LastModified by Organization Detai ls LastModified Time None Recorded Concern Status LastModified by Organization Details LastModified Time None Recorded Advance Directives Directive N: Payers Encounter Date Sequence Insurance Name Policy Number Policy Lange Covered Member ID Lange Member ID Guarantor Name 03/19/2024 1 [facility] [facility] Elizabeth M Raphael [id number] Elizabeth Lim 05/21/2024 1 [facility] [facility] [facility] Elizabeth Christa Lim [id number] Elizabeth Lim 05/28/2024 1 [facility] [facility] [facility] Elizabeth M Raphael [id number] Elizabeth Lim 11/21/2024 1 [facility] [facility] [facility] Elizabeth M Raphael [id number] Elizabeth Lim 11/28/2024 1 [facility] [facility] Elizabeth Goodwin Raphael [id number] Elizabeth Lim Notes Date Note Type Note Provider Name and Address Organization Details Recorded Time 03/19/2024 text/html Elizabeth Lim is a 28 year old female here today to establish care She sees psych at [facility] in [place]. Diagnosed with depression, anxiety, and bipolar. States she has been changing medications and not sure if this is working for her. She sees psych again this week. She has concerns that she may be diabetic. She states she passed out on and when the ambulance came her blood glucose was 38. She states that these spells happen frequently. States she has a large family history of type 1 DM. She admits to excessive thirst, 160-200 oz of water intake daily. She has concerns with lower back pain, most left sided. She states this is consistent. She will occasionally have left leg numbness. She has 2 babies, ages 7 and 4 Flu shot: declinesCOVID vaccines: declinesTdap: 2020Colonoscopy: not indicatedMammogram: not indicatedWWE: unsure, recommended MILLIE Jose [address], [address], [place], [address], [employer] 03/19/2024 10:55:05 05/21/2024 text/html Elizabeth Lim is a 28 year old female here today to discuss blood pressure She has concerns with high blood pressure. She does take clonidine as needed for anxiety, notes when she does not take it she will get a headache and feel nauseous.Has had a persistent throbbing headaches for the last week, is having blurred vision. Used her moms BP cuff and her BP was 139/95Previously took medications for hypertension. BP on arrival 140/96, recheck 112/80 MILLIE Jose [address], [address], [place], [address], [employer] 05/21/2024 10:34:46 05/28/2024 text/html Elizabeth Lim is a 28 year old female patient here today to FU on a headache She was seen here on 05/21 for a migraine, she was given a Ubrelvy sample and sent home to rest. After leaving here she began vomiting and had visual changes. She went to [place] [facility] and was found by US to have papilledema. She was sent to [facility] for a spinal tap and MRI, [facility] saw her, did no imaging or labs and sent her home. The next morning her vision got worse and she went to [place] [facility]. There she was given HCTZ. She is still having intermittent blurred vision, constant headache around the occipital region. Her blood pressure is still extremely elevated at 160/100, despite lisinopril and HCTZ. Pt advised to return to [facility] MILLIE Jose [address], [address], [place], [address], [employer] 05/28/2024 10:51:05 11/21/2024 text/html Elevated blood pressure. She did previously take lisinopril 10 mg and stopped this. We will restart. She did have a lumbar puncture on 11/19/24, this is normal.She has chronic migraines. She does see neurology, he states she has excessive pressure around her brain. MILLIE Jose [address], [address], [place], [address], [employer] Kanjoya 11/21/2024 13:01:18 11/28/2024 text/html Sunday morning s he woke up with generalized body aches, chills then spiked a fever of 102.6. Had had an LP last week so had concerns for a spinal infection. Went to the ER and was diagnosed with a viral infection and given IV fluids. She began to feel better, then yesterday she began to feel bad again She is concerned that she may had kidney issues. 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 She states she drink excessive water but is not urinating enough. Ketones present in the ER UA, she has concerns of diabetes At the ER she had elevated WBC and elevated RBC. This is causing her worry. Discussed this is likely related to viral infection and we can recheck labs in 3 weeks. MILLIE Jose [address], [address], [place], [address], [employer] [facility] Kanjoya 11/28/2024 15:04:23 OBGyn Episode No OBEpisode recorded.
--- OUTSIDE RECORDS SUMMARY | 2024-12-08 09:37 | XMS_ITS | Patient Health Record ---
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 Name Role Phone Sally Matamoros Primary Care Provider Soha Coles Unavailable [phone] Angie Velazquez Unavailable [phone] Yanira Pineda Unavailable [phone] Latisha Palacios Unavailable [phone] Allergies Allergen (clinical drug ingredient) Drug/Non Drug Allergy documented on EMR Reaction Allergy Type Onset Date Status cariprazine Vraylar nausea and vomiting Drug Allergy Active Reason For Referral Reason Therapy, counseling Diagnosis 1 Bipolar affective di sorder (F31.9) Diagnosis 2 Generalized anxiety disorder (F41.1) Referral Organization [facility] Referring Provider First Name Sally Referring Provider Last Name Saturnino Referring Provider Speciality Psychiatry Referred Provider Specialty Behavioral [facility] General Notes Sally Matamoros 11:06:43 AM > Client with high levels of depression and anxiety. Reports passive SI, denies any plan or intent, but reports wanting to start therapy and have further support as soon as she is able. Please refer. Thank you. Clinical Notes Ahsan Pineda 08/14/2024 02:04:11 PM > Corporate Planner spoke with client who states she has an appointment scheduled next sunday. Corporate Planner will fidelina referral as addressed. Referral Priority Routine Medications Medication SIG (Take, Route, Frequency, Duration) Notes Start Date End Date Status LORazepam 0.5 MG 2-3 tablets Orally per day for 21 days As needed 11/04/2024 Active hydroCHLOROthiazide 25 MG 1 tablet in th e morning Orally Once a day Unknown Topiramate 25 MG TAKE 1 TABLET BY GAL TH ONCE A DAY FOR 30 DAYS for 90 Active Social History Tobacco Use: Social History Observation Description Date Details (start date - stop date) Current Smoker NA - NA Dont use, Tobacco Use/Smoking Question Answer Notes Are you a Uses tobacco in other forms PRAPARE Question Answer Notes Date Completed/Updated: 10/29/2024 What is your current housing situation? I have h ousing Are you worried about losing your housing? No What is the highest level of school that you have finished? 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 Check all that apply I do not have problems meeting my needs Has lack of transportation k ept you from medical appointments, meetings, work or from getting things needed for daily living? No How often do you see or talk to people that you care about and feel close to? (For example: talking to friends on the phone, visiting friends or family, going to [employer] or club meetings) More than 5 times a week How stressed are you? Stress is when someone feels tense, nervous, anxious, or can\t sleep at night because their mind is troubled Somewhat In the past year have you sp ent more than 2 nights in a row in a fdc, [place] health [place] facility, custodial center, or juvenile correctional facility? No Do you feel physically and e motionally safe where you currently live? Yes In the past year, have you b een afraid of your partner or ex-partner? No PRAPARE Score: 6 Tobacco Control (Standard) Question Answer Notes Tobacco use: Current smoker How often do you smoke cigarettes? Every day Additional Findings: Tobacco user e-cigarette Problems Problem Type SNOMED Code ICD Code Onset Dates Problem Status W/U Status Risk Notes Problem [id number] Morbid (severe) obesity due to excess calories (E66.01) Active confirmed Problem Generalized anxiety disorder (09557053) Generalized anxiety disorder (F41.1) Active confirmed Problem Tobacco dependence (46227954) Tobacco dependence (F17.200) Active confirmed Problem 89893975 Anxiety (F41.9) Active confirmed Problem Bipolar affective disorder (20017874) Bipolar affective disorder (F31.9) Active confirmed Problem 67667201 Depressive disorder (F32.9) Active confirmed Problem Posttraumatic stress disorder (21777369) Chronic post-traumatic stress disorder (PTSD) (F43.12) Active confirmed Problem 496293292 Obesity (BMI 30-39.9) (E66.9) Active confirmed Problem Sleep disturbance (97866427) Sleep disturbance, unspecified (G47.9) Active confirmed Problem 229829022 Body mass index (BMI) of 40.0-44.9 in adult (Z68.41) Active confirmed Vital Signs Heart Rate 85 /min 10/07/2024 Temperature 98.5 degrees Fahrenheit 10/07/2024 Respiratory Rate 16 /min 10/07/2024 Blood pressure diastolic 78 mm Hg 10/07/2024 Oximetry 98 % 10/07/2024 Height 65 in 10/07/2024 Blood pressure systolic 112 mm Hg 10/07/2024 Weight 207.2 lbs 10/07/2024 BMI 34.48 kg/m2 10/07/2024 Encounters Encounter Location Date Provider Diagnosis [address] [address] 12/17/2023 Sally Matamoros Generalized anxiety disorder F41.1 ; Bipolar affective disorder F31.9 ; Chronic post-traumatic stress disorder (PTSD) F43.12 ; Sleep disturbance, unspecified G47.9 ; Cannabis use disorder F12.90 and Medication monitoring encounter Z51.[address] [address] 02/27/2024 Angie Velazquez Generalized anxiety disorder F41.1 ; Bipolar affective disorder F31.9 ; Chronic post-traumatic stress disorder (PTSD) F43.12 ; Sleep disturbance, unspecified G47.9 ; Cannabis use disorder F12.90 and Medication monitoring encounter Z51.[address] [address] 03/26/2024 Sally Matamoros Generalized anxiety disorder F41.1 ; Bipolar affective disorder F31.9 ; Chronic post-traumatic stress disorder (PTSD) F43.12 ; Sleep disturbance, unspecified G47.9 ; Cannabis use disorder F12.90 and Medication monitoring encounter Z51.[address] [address] 05/14/2024 Sally Matamoros Generalized anxiety disorder F41.1 ; Bipolar affective disorder F31.9 ; Chronic post-traumatic stress disorder (PTSD) F43.12 ; Sleep disturbance, unspecified G47.9 ; Cannabis use disorder F12.90 and Medication monitoring encounter Z51.[address] [address] 06/02/2024 Sally Matamoros Bipolar affective disorder F31.9 ; Generalized anxiety disorder F41.1 ; Chronic post-traumatic stress disorder (PTSD) F43.12 ; Sleep disturbance, unspecified G47.9 ; Cannabis use disorder F12.90 and Medication monitoring encounter Z51.[address] [address] 08/13/2024 Sally Matamoros Bipolar affective disorder F31.9 ; Generalized anxiety disorder F41.1 ; Chronic post-traumatic stress disorder (PTSD) F43.12 ; Sleep disturbance, unspecified G47.9 ; Cannabis use disorder F12.90 and Medication monitoring encounter Z51.[address] [address] 09/03/2024 Sally Matamoros Bipolar affective disorder F31.9 ; Generalized anxiety disorder F41.1 ; Chronic post-traumatic stress disorder (PTSD) F43.12 ; Sleep disturbance, unspecified G47.9 ; Cannabis use disorder F12.90 and Medication monitoring encounter Z51.[address] [address] 10/01/2024 Sally Matamoros Bipolar affective disorder F31.9 ; Generalized anxiety disorder F41.1 ; Chronic post-traumatic stress disorder (PTSD) F43.12 ; Sleep disturbance, unspecified G47.9 ; Cannabis use disorder F12.90 and Medication monitoring encounter Z51.81 [address] [address] [place] [address] 10/07/2024 Sally Matamoros Bipolar affective disorder F31.9 ; Generalized anxiety disorder F41.1 ; Chronic post-traumatic stress disorder (PTSD) F43.12 ; Sleep disturbance, unspecified G47.9 ; Cannabis use disorder F12.90 and Medication monitoring encounter Z51.[address] [place] [address] 10/15/2024 Latisha Palacios Anxiety F41.9 [address] [place] [address] 10/21/2024 Sally Matamoros Bipolar affective disorder F31.9 ; Generalized anxiety disorder F41.1 ; Chronic post-traumatic stress disorder (PTSD) F43.12 ; Sleep disturbance, unspecified G47.9 ; Cannabis use disorder F12.90 and Medication monitoring encounter Z51.81 [address] [address] [place] [address] 11/04/2024 Sally Matamoros Bipolar affective disorder F31.9 ; Generalized anxiety disorder F41.1 ; Chronic post-traumatic stress disorder (PTSD) F43.12 ; Sleep disturbance, unspecified G47.9 ; Cannabis use disorder F12.90 and Medication monitoring encounter Z51.[address] [place] [address] 12/17/2023 Sally Manzanonnan [address] [address] 02/28/2024 Angie Velazquez Bipolar affective disorder F31.[address] [place] [address] 03/26/2024 Sally Matamoros [address] [place] [address] 05/14/2024 Sally Matamoros [address] [address] 05/19/2024 Sally Matamoros Bipolar affective disorder F31.9 [facility] [address] [address] 08/13/2024 Sally Matamoros [facility] [address] [place] [address] 08/14/2024 Sally Matamoros [facility] [address] [place] [address] 08/14/2024 Yanira Pineda [facility] [address] [facility] [place] [address] 08/26/2024 Sally Matamoros Bipolar affective disorder F31.9 [facility] [address] [place] [place] [address] 10/01/2024 Sallyadi Matamoros [address] [place] [address] 10/01/2024 Sallyadi Matamoros [address] [place] [address] 10/01/2024 Sallyadi Matamoros [address] [address] [place] [address] 10/10/2024 Sally Matamoros [address] [place] [address] 10/13/2024 Sally Matamoros [address] [place] [address] 10/15/2024 Sallyadi Matamoros [address] [place] [address] 10/16/2024 Sally Matamoros [address] [place] [address] 10/30/2024 Sally Matamoros [address] [place] [address] 12/07/[address] [place] [address] 12/07/[address] [place] [address] 10/17/2024 Sally Matamoros [address] [place] [address] 11/11/2024 Sally Matamoros Bipolar affective disorder F31.9 Assessments Encounter Date Diagnosis (ICD Code) Assessment Notes Treatment Notes Treatment Clinical Notes Section Notes 08/26/2024 Bipolar affective disorder (ICD-10 - F31.9) 09/03/2024 Bipolar affective disorder (ICD-10 - F31.9) Recent labwork at 0.3 level- Increase lithium. Take as prescribed. Discussed uses for bipolar depression with SI. Reviewed risks associated like toxicity and water intake, cardiovascular changes. Educated on monitoring weight, kidney function and therapeutic blood trough levels. [facility]: Have lithium level drawn after taking prescribed dose for 7 consecutive days. Do NOT take your lithium until the blood has been collected. You may take your other medications as usual. Past: Seroquel Past trials: Seroquel- headache at higher doses. Abilify- just stopped working. Retried Abilify and felt shaky. Risperdal- SE not tolerable. Topamax- headache, slurrred words per client- hx of doing well on Topamax. Client reports SI on lamotrigine. Discussed [facility] 10/21/2024 Bipolar affective disorder (ICD-10 - F31.9) Start Depakote/Valproic Acid. Take as prescribed. Purpose - promote mood stability. Reviewed side effects, including sedation, dose-dependent tremor, dizziness, ataxia, asthenia, headache abdominal pain, GI distress, and alopecia. Rarely can cause liver or pancreas dysfunction/failure. Wean lithium- discussed in length. Past: Seroquel Past trials: Seroquel- headache at higher doses. Abilify- just stopped working. Retried Abilify and felt shaky. Risperdal- SE not tolerable. Topamax- headache, slurrred words per client- hx of doing well on Topamax. Client reports SI on lamotrigine. Discussed [facility] 10/15/2024 Anxiety (ICD-10 - F41.9) 03/26/2024 Generalized anxiety disorder (ICD-10 - F41.1) Past trials: hydroxyzine, buspar, fluoxetin, celexa, venlafaxine, propranolol Clonazepam on for rare, PRN use only. Discussed controlled sub with patient. PDMP checked without concerns 02/28/2024 Bipolar affective disorder (ICD-10 - F31.9) 11/11/2024 Bipolar affective disorder (ICD-10 - F31.9) 11/04/2024 Bipolar affective disorder (ICD-10 - F31.9) Increase Depakote/Valproic Acid. Take as prescribed. Purpose - promote mood stability. Reviewed side effects, including sedation, dose-dependent tremor, dizziness, ataxia, asthenia, headache abdominal pain, GI distress, and alopecia. Rarely can cause liver or pancreas dysfunction/failure. Labs in 1 week. [facility] weaned, stop today. Past: Seroquel Past trials: Seroquel- headache at higher doses. Abilify- just stopped working. Retried Abilify and felt shaky. Risperdal- SE not tolerable. Topamax- headache, slurrred words per client- hx of doing well on Topamax. Client reports SI on lamotrigine. Discussed [facility] 10/07/2024 Bipolar affective disorder (ICD-10 - F31.9) Past: Seroquel Past trials: Seroquel- headache at higher doses. Abilify- just stopped working. Retried Abilify and felt shaky. Risperdal- SE not tolerable. Topamax- headache, slurrred words per client- hx of doing well on Topamax. Client reports SI on lamotrigine. Discussed [facility] 10/01/2024 Bipolar affective disorder (ICD-10 - F31.9) Will request hospital records, decreasing dose and monitoring, get lab Sunday morning to keep close eye on levels. Labs to [facility] Past: Seroquel Past trials: Seroquel- headache at higher doses. Abilify- just stopped working. Retried Abilify and felt shaky. Risperdal- SE not tolerable. Topamax- headache, slurrred words per client- hx of doing well on Topamax. Client reports SI on lamotrigine. Discussed [facility] 08/13/2024 Bipolar affective disorder (ICD-10 - F31.9) Start lithium. Take as prescribed. Discussed uses for bipolar depression with SI. Reviewed risks associated like toxicity and water intake, cardiovascular changes. Educated on monitoring weight, kidney function and therapeutic blood trough levels. [facility]: Have lithium level drawn after taking prescribed dose for 7 consecutive days. Do NOT take your lithium until the blood has been collected. You may take your other medications as usual. Past: Seroquel Past trials: Seroquel- headache at higher doses. Abilify- just stopped working. Retried Abilify and felt shaky. Risperdal- SE not tolerable. Topamax- headache, slurrred words per client- hx of doing well on Topamax. Client reports SI on lamotrigine. Discussed [facility] 06/02/2024 Bipolar affective disorder (ICD-10 - F31.9) Sonoita agreement to continue current regimen Past: Seroquel Past trials: Seroquel- headache at higher doses. Abilify- just stopped working. Retried Abilify and felt shaky. Risperdal- SE not tolerable. Topamax- headache, slurrred words per client- hx of doing well on Topamax. Client reports SI on lamotrigine. Discussed [facility] 05/19/2024 Bipolar affective disorder (ICD-10 - F31.9) 05/14/2024 Generalized anxiety disorder (ICD-10 - F41.1) Past trials: hydroxyzine, buspar, fluoxetin, celexa, venlafaxine, propranolol Clonazepam on for rare, PRN use only. Discussed controlled sub with patient. PDMP checked without concerns 02/27/2024 Generalized anxiety disorder (ICD-10 - F41.1) Changing forms to ODT as client reports waiting for clonazepam tablets to kick in has been causing troubles with work and prolonging pseudoseizure activity. Past trials: hydroxyzine, buspar, fluoxetin, celexa, venlafaxine, propranolol Clonazepam on for rare, PRN use only. Discussed controlled sub with patient. PDMP checked without concerns 12/17/2023 Generalized anxiety disorder (ICD-10 - F41.1) Changing forms to ODT as client reports waiting for clonazepam tablets to kick in has been causing troubles with work and prolonging pseudoseizure activity. Past trials: hydroxyzine, buspar, fluoxetin, celexa, venlafaxine, propranolol Clonazepam on for rare, PRN use only. Discussed controlled sub with patient. PDMP checked without concerns 12/17/2023 Bipolar affective disorder (ICD-10 - F31.9) Continue current regimen as client reports stability but trouble with memoriy and concentration at 200mg, decreasing to 175mg as mood improvement noted. Past trials: Seroquel- headache at higher doses. Abilify- just stopped working. Risperdal- SE not tolerable. Topamax- headache, slurrred words per client- hx of doing well on Topamax. 02/27/2024 Bipolar affective disorder (ICD-10 - F31.9) Continue current regimen as client reports stability but trouble with memoriy and concentration at 200mg, decreasing to 175mg as mood improvement noted. Past trials: Seroquel- headache at higher doses. Abilify- just stopped working. Risperdal- SE not tolerable. Topamax- headache, slurrred words per client- hx of doing well on Topamax. Client reports SI on lamotrigine. 05/14/2024 Bipolar affective disorder (ICD-10 - F31.9) Reports mood instability, taking Abilify daily and feeling shaky. Stopping this medications, due to increased BMI, starting Lybalvi. Discussed r/b/se. Past: Seroquel Past trials: Seroquel- headache at higher doses. Abilify- just stopped working. Retried Abilify and felt shaky. Risperdal- SE not tolerable. Topamax- headache, slurrred words per client- hx of doing well on Topamax. Client reports SI on lamotrigine. Ordered [facility] testing. 08/13/2024 Generalized anxiety disorder (ICD-10 - F41.1) Past trials: hydroxyzine, buspar, fluoxetin, celexa, venlafaxine, propranolol Clonazepam on for rare, PRN use only. Discussed controlled sub with patient. PDMP checked without concerns 06/02/2024 Generalized anxiety disorder (ICD-10 - F41.1) Past trials: hydroxyzine, buspar, fluoxetin, celexa, venlafaxine, propranolol Clonazepam on for rare, PRN use only. Discussed controlled sub with patient. PDMP checked without concerns 10/07/2024 Generalized anxiety disorder (ICD-10 - F41.1) Past trials: hydroxyzine, buspar, fluoxetin, celexa, venlafaxine, propranolol Discussed controlled sub with patient. DO NOT DRINK ETOH WITH THESE MEDICATIONS- client v/u and states she will not be drinking. States did not take with ETOH use Sat. PDMP checked without concerns 10/01/2024 Generalized anxiety disorder (ICD-10 - F41.1) Past trials: hydroxyzine, buspar, fluoxetin, celexa, venlafaxine, propranolol Changing to lorazepam as client reports this helped when in the hospital recently. Discussed controlled sub with patient. DO NOT DRINK ETOH WITH THESE MEDICATIONS- client v/u and states she will not be drinking. States did not take with ETOH use Sat. PDMP checked without concerns 11/04/2024 Generalized anxiety disorder (ICD-10 - F41.1) Past trials: hydroxyzine, buspar, fluoxetin, celexa, venlafaxine, propranolol Discussed controlled sub with patient. DO NOT DRINK ETOH WITH THESE MEDICATIONS- client v/u and states she will not be drinking. PDMP checked without concerns 10/21/2024 Generalized anxiety disorder (ICD-10 - F41.1) Past trials: hydroxyzine, buspar, fluoxetin, celexa, venlafaxine, propranolol Discussed controlled sub with patient. DO NOT DRINK ETOH WITH THESE MEDICATIONS- client v/u and states she will not be drinking. PDMP checked without concerns 03/26/2024 Bipolar affective disorder (ICD-10 - F31.9) Reports mood instability, depression continues with Abilify- discussed possible increase in dose. Will order [facility] testing and discuss further options once results are in Past: Seroquel Past trials: Seroquel- headache at higher doses. Abilify- just stopped working. Risperdal- SE not tolerable. Topamax- headache, slurrred words per client- hx of doing well on Topamax. Client reports SI on lamotrigine. Ordering [facility] testing. 09/03/2024 Generalized anxiety disorder (ICD-10 - F41.1) Past trials: hydroxyzine, buspar, fluoxetin, celexa, venlafaxine, propranolol Clonazepam on for rare, PRN use only. Discussed controlled sub with patient. PDMP checked without concerns 09/03/2024 Chronic post-traumatic stress disorder (PTSD) (ICD-10 - F43.12) encouraged therapy/counseling 10/21/2024 Chronic post-traumatic stress disorder (PTSD) (ICD-10 - F43.12) encouraged therapy/counseling 03/26/2024 Chronic post-traumatic stress disorder (PTSD) (ICD-10 - F43.12) encouraged therapy/counseling 11/04/2024 Chronic post-traumatic stress disorder (PTSD) (ICD-10 - F43.12) encouraged therapy/counseling 10/07/2024 Chronic post-traumatic stress disorder (PTSD) (ICD-10 - F43.12) encouraged therapy/counseling 08/13/2024 Chronic post-traumatic stress disorder (PTSD) (ICD-10 - F43.12) encouraged therapy/counseling 10/01/2024 Chronic post-traumatic stress disorder (PTSD) (ICD-10 - F43.12) encouraged therapy/counseling 06/02/2024 Chronic post-traumatic stress disorder (PTSD) (ICD-10 - F43.12) encouraged therapy/counseling 05/14/2024 Chronic post-traumatic stress disorder (PTSD) (ICD-10 - F43.12) encouraged therapy/counseling 02/27/2024 Chronic post-traumatic stress disorder (PTSD) (ICD-10 - F43.12) encouraged therapy/counseling 12/17/2023 Chronic post-traumatic stress disorder (PTSD) (ICD-10 - F43.12) encouraged therapy/counseling 12/17/2023 Sleep disturbance, unspecified (ICD-10 - G47.9) Discouraged caffeine intake. 02/27/2024 Sleep disturbance, unspecified (ICD-10 - G47.9) Discouraged caffeine intake. 05/14/2024 Sleep disturbance, unspecified (ICD-10 - G47.9) Discouraged caffeine intake. 06/02/2024 Sleep disturbance, unspecified (ICD-10 - G47.9) Discouraged caffeine intake. 10/01/2024 Sleep disturbance, unspecified (ICD-10 - G47.9) Discouraged caffeine intake. 08/13/2024 Sleep disturbance, unspecified (ICD-10 - G47.9) Discouraged caffeine intake. 10/07/2024 Sleep disturbance, unspecified (ICD-10 - G47.9) Discouraged caffeine intake. 11/04/2024 Sleep disturbance, unspecified (ICD-10 - G47.9) Discouraged caffeine intake. 03/26/2024 Sleep disturbance, unspecified (ICD-10 - G47.9) Discouraged caffeine intake. 10/21/2024 Sleep disturbance, unspecified (ICD-10 - G47.9) Discouraged caffeine intake. 09/03/2024 Sleep disturbance, unspecified (ICD-10 - G47.9) Discouraged caffeine intake. 09/03/2024 Cannabis use disorder (ICD-10 - F12.90) Discussed with patient that taking or using herbs, such as marijuana, and/or vitamins and supplements may interfere with or alter the way prescription medications work in the body or cause adverse reactions. Patient voiced understanding. 10/21/2024 Cannabis use disorder (ICD-10 - F12.90) Discussed with patient that taking or using herbs, such as marijuana, and/or vitamins and supplements may interfere with or alter the way prescription medications work in the body or cause adverse reactions. Patient voiced understanding. 03/26/2024 Cannabis use disorder (ICD-10 - F12.90) Discussed with patient that taking or using herbs, such as marijuana, and/or vitamins and supplements may interfere with or alter the way prescription medications work in the body or cause adverse reactions. Patient voiced understanding. 11/04/2024 Cannabis use disorder (ICD-10 - F12.90) Discussed with patient that taking or using herbs, such as marijuana, and/or vitamins and supplements may interfere with or alter the way prescription medications work in the body or cause adverse reactions. Patient voiced understanding. 10/07/2024 Cannabis use disorder (ICD-10 - F12.90) Discussed with patient that taking or using herbs, such as marijuana, and/or vitamins and supplements may interfere with or alter the way prescription medications work in the body or cause adverse reactions. Patient voiced understanding. 08/13/2024 Cannabis use disorder (ICD-10 - F12.90) Discussed with patient that taking or using herbs, such as marijuana, and/or vitamins and supplements may interfere with or alter the way prescription medications work in the body or cause adverse reactions. Patient voiced understanding. 10/01/2024 Cannabis use disorder (ICD-10 - F12.90) Discussed with patient that taking or using herbs, such as marijuana, and/or vitamins and supplements may interfere with or alter the way prescription medications work in the body or cause adverse reactions. Patient voiced understanding. 06/02/2024 Cannabis use disorder (ICD-10 - F12.90) Discussed with patient that taking or using herbs, such as marijuana, and/or vitamins and supplements may interfere with or alter the way prescription medications work in the body or cause adverse reactions. Patient voiced understanding. 05/14/2024 Cannabis use disorder (ICD-10 - F12.90) Discussed with patient that taking or using herbs, such as marijuana, and/or vitamins and supplements may interfere with or alter the way prescription medications work in the body or cause adverse reactions. Patient voiced understanding. 02/27/2024 Cannabis use disorder (ICD-10 - F12.90) Discussed with patient that taking or using herbs, such as marijuana, and/or vitamins and supplements may interfere with or alter the way prescription medications work in the body or cause adverse reactions. Patient voiced understanding. 12/17/2023 Cannabis use disorder (ICD-10 - F12.90) Discussed with patient that taking or using herbs, such as marijuana, and/or vitamins and supplements may interfere with or alter the way prescription medications work in the body or cause adverse reactions. Patient voiced understanding. 12/17/2023 Medication monitoring encounter (ICD-10 - Z51.81) 02/27/2024 Medication monitoring encounter (ICD-10 - Z51.81) May self-administer medications or be administered own oral medications per [facility] protocols. Provided informed consent with understanding of side effects, adverse effects, risks and benefits as well as alternative treatments as previously discussed and with the above recommended medications & other aspects of the treatment program. Agrees to return sooner if symptoms worsen or suicidal or homicidal ideations occur. 06/02/2024 Medication monitoring encounter (ICD-10 - Z51.81) 05/14/2024 Medication monitoring encounter (ICD-10 - Z51.81) 08/13/2024 Medication monitoring encounter (ICD-10 - Z51.81) 10/07/2024 Medication monitoring encounter (ICD-10 - Z51.81) 10/01/2024 Medication monitoring encounter (ICD-10 - Z51.81) 11/04/2024 Medication monitoring encounter (ICD-10 - Z51.81) 10/21/2024 Medication monitoring encounter (ICD-10 - Z51.81) 03/26/2024 Medication monitoring encounter (ICD-10 - Z51.81) 09/03/2024 Medication monitoring encounter (ICD-10 - Z51.81) 12/17/2023 Other Discussed that client will need drug screen done before further clonazepam fills. medical staffing coordinator to coordinate. Reasons, potential benefits, potential risks, interactions and side effects of all medications were discussed. The Patient/Guardian asked appropriate questions, appeared to understand the answers, and decided to accept the treatment and continue being followed. Alternatives and expected course without treatment were reviewed. The Patient/Guardian is aware of the need to contact the office or return for an earlier appointment if any problems or concerns arise. May also contact the 24-hour crisis hotline ([facility]), refer to the closest emergency room or call 911 if new symptoms arise of existing symptoms worsen. The Patient/Guardian is aware that this would apply to symptoms like: suicidal ideation, homicidal ideation, high risk behaviors, manic symptoms, psychotic symptoms, physical symptoms, or any other symptoms that may be dangerous to self or others. Greater than 50% of time spent on coordination and counseling where psychopharmacology as well as psychotherapeutic interventions were discussed along with review of treatments in the past. Education provided concerning need for adequate hydration. Patient/Guardian verbalized understanding of education, treatment plan and follow up. 03/26/2024 Other Reasons, potential benefits, potential risks, interactions and side effects of all medications were discussed. The Patient/Guardian asked appropriate questions, appeared to understand the answers, and decided to accept the treatment and continue being followed. Alternatives and expected course without treatment were reviewed. The Patient/Guardian is aware of the need to contact the office or return for an earlier appointment if any problems or concerns arise. May also contact the 24-hour crisis hotline ([facility]), refer to the closest emergency room or call 911 if new symptoms arise of existing symptoms worsen. The Patient/Guardian is aware that this would apply to symptoms like: suicidal ideation, homicidal ideation, high risk behaviors, manic symptoms, psychotic symptoms, physical symptoms, or any other symptoms that may be dangerous to self or others. Greater than 50% of time spent on coordination and counseling where psychopharmacology as well as psychotherapeutic interventions were discussed along with review of treatments in the past. Education provided concerning need for adequate hydration. Patient/Guardian verbalized understanding of education, treatment plan and follow up. This session was completed telephonically with client/parental/guard liv consent: Unable to determine movement status, assess appearance, affect, AIMS, or vital signs. 06/02/2024 Other Reasons, potential benefits, potential risks, interactions and side effects of all medications were discussed. The Patient/Guardian asked appropriate questions, appeared to understand the answers, and decided to accept the treatment and continue being followed. Alternatives and expected course without treatment were reviewed. The Patient/Guardian is aware of the need to contact the office or return for an earlier appointment if any problems or concerns arise. May also contact the 24-hour crisis hotline ([facility]), refer to the closest emergency room or call 911 if new symptoms arise of existing symptoms worsen. The Patient/Guardian is aware that this would apply to symptoms like: suicidal ideation, homicidal ideation, high risk behaviors, manic symptoms, psychotic symptoms, physical symptoms, or any other symptoms that may be dangerous to self or others. Greater than 50% of time spent on coordination and counseling where psychopharmacology as well as psychotherapeutic interventions were discussed along with review of treatments in the past. Education provided concerning need for adequate hydration. Patient/Guardian verbalized understanding of education, treatment plan and follow up. This session was completed telephonically with client/parental/guard liv consent: Unable to determine movement status, assess appearance, affect, AIMS, or vital signs. 08/13/2024 Other Reasons, potential benefits, potential risks, interactions and side effects of all medications were discussed. The Patient/Guardian asked appropriate questions, appeared to understand the answers, and decided to accept the treatment and continue being followed. Alternatives and expected course without treatment were reviewed. The Patient/Guardian is aware of the need to contact the office or return for an earlier appointment if any problems or concerns arise. May also contact the 24-hour crisis hotline ([facility]), refer to the closest emergency room or call 911 if new symptoms arise of existing symptoms worsen. The Patient/Guardian is aware that this would apply to symptoms like: suicidal ideation, homicidal ideation, high risk behaviors, manic symptoms, psychotic symptoms, physical symptoms, or any other symptoms that may be dangerous to self or others. Greater than 50% of time spent on coordination and counseling where psychopharmacology as well as psychotherapeutic interventions were discussed along with review of treatments in the past. Education provided concerning need for adequate hydration. Patient/Guardian verbalized understanding of education, treatment plan and follow up. This session was completed telephonically with client/parental/guard liv consent: Unable to determine movement status, assess appearance, affect, AIMS, or vital signs. 09/03/2024 Other Reasons, potential benefits, potential risks, interactions and side effects of all medications were discussed. The Patient/Guardian asked appropriate questions, appeared to understand the answers, and decided to accept the treatment and continue being followed. Alternatives and expected course without treatment were reviewed. The Patient/Guardian is aware of the need to contact the office or return for an earlier appointment if any problems or concerns arise. May also contact the 24-hour crisis hotline ([facility]), refer to the closest emergency room or call 911 if new symptoms arise of existing symptoms worsen. The Patient/Guardian is aware that this would apply to symptoms like: suicidal ideation, homicidal ideation, high risk behaviors, manic symptoms, psychotic symptoms, physical symptoms, or any other symptoms that may be dangerous to self or others. Greater than 50% of time spent on coordination and counseling where psychopharmacology as well as psychotherapeutic interventions were discussed along with review of treatments in the past. Education provided concerning need for adequate hydration. Patient/Guardian verbalized understanding of education, treatment plan and follow up. This session was completed telephonically with client/parental/guard liv consent: Unable to determine movement status, assess appearance, affect, AIMS, or vital signs. 10/01/2024 Other Reasons, potential benefits, potential risks, interactions and side effects of all medications were discussed. The Patient/Guardian asked appropriate questions, appeared to understand the answers, and decided to accept the treatment and continue being followed. Alternatives and expected course without treatment were reviewed. The Patient/Guardian is aware of the need to contact the office or return for an earlier appointment if any problems or concerns arise. May also contact the 24-hour crisis hotline ([facility]), refer to the closest emergency room or call 911 if new symptoms arise of existing symptoms worsen. The Patient/Guardian is aware that this would apply to symptoms like: suicidal ideation, homicidal ideation, high risk behaviors, manic symptoms, psychotic symptoms, physical symptoms, or any other symptoms that may be dangerous to self or others. Greater than 50% of time spent on coordination and counseling where psychopharmacology as well as psychotherapeutic interventions were discussed along with review of treatments in the past. Education provided concerning need for adequate hydration. Patient/Guardian verbalized understanding of education, treatment plan and follow up. This session was completed telephonically with client/parental/guard liv consent: Unable to determine movement status, assess appearance, affect, AIMS, or vital signs. 10/07/2024 Other Reasons, potential benefits, potential risks, interactions and side effects of all medications were discussed. The Patient/Guardian asked appropriate questions, appeared to understand the answers, and decided to accept the treatment and continue being followed. Alternatives and expected course without treatment were reviewed. The Patient/Guardian is aware of the need to contact the office or return for an earlier appointment if any problems or concerns arise. May also contact the 24-hour crisis hotline ([facility]), refer to the closest emergency room or call 911 if new symptoms arise of existing symptoms worsen. The Patient/Guardian is aware that this would apply to symptoms like: suicidal ideation, homicidal ideation, high risk behaviors, manic symptoms, psychotic symptoms, physical symptoms, or any other symptoms that may be dangerous to self or others. Greater than 50% of time spent on coordination and counseling where psychopharmacology as well as psychotherapeutic interventions were discussed along with review of treatments in the past. Education provided concerning need for adequate hydration. Patient/Guardian verbalized understanding of education, treatment plan and follow up. 10/15/2024 Other Corporate Planner met with client via telehealth to discuss referral. The selling underwriter encouraged and engaged in critical thinking of how to use natural resources and coping skills to help manage symptoms in the moment. Please see above for further action steps regarding client's therapy needs. 10/21/2024 Other Reasons, potential benefits, potential risks, interactions and side effects of all medications were discussed. The Patient/Guardian asked appropriate questions, appeared to understand the answers, and decided to accept the treatment and continue being followed. Alternatives and expected course without treatment were reviewed. The Patient/Guardian is aware of the need to contact the office or return for an earlier appointment if any problems or concerns arise. May also contact the 24-hour crisis hotline ([facility]), refer to the closest emergency room or call 911 if new symptoms arise of existing symptoms worsen. The Patient/Guardian is aware that this would apply to symptoms like: suicidal ideation, homicidal ideation, high risk behaviors, manic symptoms, psychotic symptoms, physical symptoms, or any other symptoms that may be dangerous to self or others. Greater than 50% of time spent on coordination and counseling where psychopharmacology as well as psychotherapeutic interventions were discussed along with review of treatments in the past. Education provided concerning need for adequate hydration. Patient/Guardian verbalized understanding of education, treatment plan and follow up. This session was completed telephonically with client/parental/guard liv consent: Unable to determine movement status, assess appearance, affect, AIMS, or vital signs. 11/04/2024 Other Reasons, potential benefits, potential risks, interactions and side effects of all medications were discussed. The Patient/Guardian asked appropriate questions, appeared to understand the answers, and decided to accept the treatment and continue being followed. Alternatives and expected course without treatment were reviewed. The Patient/Guardian is aware of the need to contact the office or return for an earlier appointment if any problems or concerns arise. May also contact the 24-hour crisis hotline ([facility]), refer to the closest emergency room or call 911 if new symptoms arise of existing symptoms worsen. The Patient/Guardian is aware that this would apply to symptoms like: suicidal ideation, homicidal ideation, high risk behaviors, manic symptoms, psychotic symptoms, physical symptoms, or any other symptoms that may be dangerous to self or others. Greater than 50% of time spent on coordination and counseling where psychopharmacology as well as psychotherapeutic interventions were discussed along with review of treatments in the past. Education provided concerning need for adequate hydration. Patient/Guardian verbalized understanding of education, treatment plan and follow up. This session was completed telephonically with client/parental/guard liv consent: Unable to determine movement status, assess appearance, affect, AIMS, or vital signs. Plan Of Treatment Future Test Test Name Order Date TSH* 11/12/2024 CBC With Differential/Platelet* 11/13/19 25 Valproic Acid (Depakote)(R),S 11/12/2024 CMP 14 Comprehensive Metabolic Panel* Next Appt Details Provider Name:Sally Ermelinda brink, 12/17/2024 08:40:00 AM, [address] [facility] [address] [place], [address], Insurance Providers Payer Name Payer Address Payer Phone Subscriber Number Group Number Insured Name Patient Relationship to Insured Coverage Start Date Coverage End Date [employer] [address] [place] [phone] [id number] Elizabeth Lim Self - patient is the insured 2 [facility] Attn Claims Department [address] [place] [address] [phone] [id number] Self - patient is the insured 6 1 [employer] Attn Claims Department [address] [place] [address] [phone] [id number] Elizabeth Lim Self - patient is the insured 2 [facility] [address] [place] [phone] [id number] Elizabeth Lim Self - patient is the insured 2 [employer] [facility] [address] [place] [phone] [id number] Elizabeth Lim Self - patient is the insured 5 Medical (General) History Medical History History ICD Code Anxiety Bipolar disorder Major depressive disorder, single episod e, unspecified F32.9 Seizures R56.9 Surgical History Surgery Date(Month/Year) 01/2017 appendectomy Hospitalization History Reason Date(Month/Year) Seizure hospitalization at [facility] 10/05/24
[2024-12-08 09:44] VITALS: BP 142/91; PULSE 72; RESP 18; TEMP 36.2; O2SAT 100
[2024-12-08 09:52] LABS: EDUAAPPEAR Clear; EDUABILI 1+ (Negative); EDUABLOOD Negative (Negative); EDUACOLOR1 Dark; EDUAGLUCOSE Negative (Negative); EDUAKETONE 1+ (Negative); EDUALEUKO Negative (Negative); EDUANITRATE Negative (Negative); EDUAPROTEIN Negative (Negative); EDUASPGRAVITY 1.025; EDUAUROBILI 0.2
[2024-12-08 10:14] LABS: BEDSIDEPREGUCG Negative (Negative)
--- NOTE | 2024-12-08 11:10 | ED_ITS ---
HPI - Female Genitourinary General Chief complaint: Urogenital-Female Stated complaint: UTI Time Seen by Provider: 12/08/24 09:45 Source: patient and RN notes reviewed Mode of arrival: ambulatory Limitations: no limitations History of Present Illness HPI Narrative: 29-year-old female presents Express Care complaining of urinary symptoms for 3-4 days. Patient reports having dysuria, suprapubic pain, and low back pain. Patient denies any fevers, body aches, chills, nausea, vomiting, diarrhea. Patient is taking ezxe-htr-abxzjus azo earlier this week with some relief. Patient denies any significant past medical history. Patient also reports external vaginal irritation near her urethra. Patient denies any concerns for STDs but this was she has recently had unprotected sex. Patient denies any vaginal discharge pain with intercourse, or or pelvic pain. Patient has IUD in place in approximately 5 years she states. Related Data Home Medications ?Medication ?Instructions ?Recorded ?Confirmed ?Last Taken ?Type clonazepam 0.5 mg tablet 0.5 mg DAILY 06/09/22 08/04/23 Unknown History levonorgestrel (Mirena) 1 device intrauterine ONCE 06/09/22 08/04/23 Unknown History lamotrigine 100 mg tablet mg 08/04/23 08/04/23 Unknown History Allergies Allergy/AdvReac Type Severity Reaction Status Date / Time No Known Allergies Allergy Verified 12/08/24 09:52 Review of Systems Review of Systems: CONSTITUTIONAL: Denies fever, chills, body aches, or sweats. EYES: Denies visual changes, redness, or discharge. ENT: Denies rhinorrhea, congestion, sore throat, or otalgia. CARDIOVASCULAR: Denies chest pain, palpitations, or edema. RESPIRATORY: Denies cough or dyspnea. GASTROINTESTINAL: Denies abdominal pain, nausea, vomiting, or diarrhea. GENITOURINARY: Positive for dysuria, external vaginal irritation, and suprapubic pain. Negative for hematuria, vaginal bleeding, vaginal discharge, painful intercourse, or frequency. SKIN: Denies rash or itching. MUSCULOSKELETAL: Positive for low back pain. Negative for joint pain, or myalgia. NEUROLOGIC: Denies headache, numbness, or weakness. PSYCHIATRIC: Denies anxiety or depression. All other systems reviewed are negative, except as documented in HPI. [facility] Past Medical History Medical History Anxiety Pseudoseizure Surgical History Surgical History History of appendectomy Social History Social History Smoking status: Never smoker Comments At the time of my signature, I reviewed and agree with the nursing past medical, surgical, social, and family history. There is no relevant family history pertinent to the patient complaint. Exam Narrative: GENERAL: This is a well-nourished, well-developed adult, in no apparent distress. They are non ill-appearing, nontoxic appearing. HEAD: normocephalic, atraumatic. EYES: Sclera clear/white. Vision is grossly intact. Conjunctiva normal bilaterally. Extraocular movements intact. EARS: External ears normal,Hearing grossly intact. NOSE: External nose normal THROAT: Mucous membranes moist NECK: Normal range of motion CARDIOVASCULAR: Regular rate and rhythm. Normal S1 and S2. No murmurs, clicks, gallops, or rubs. RESPIRATORY: Respiratory rate normal, respiratory effort nonlabored, no respiratory distress. Lung sounds are clear to auscultation throughout. No adventitious lung sounds. GASTROINTESTINAL: Abdomen soft, flat, mild suprapubic tenderness to palpation, nondistended. Bowel sounds are active. No hepato-splenomegaly, or palpable mas ses. No guarding or rigidity. No rebound tenderness. GENITOURINARY: Patient declined pelvic exam. SKIN: warm, Dry, intact with no suspicious lesions or rash, good texture and turgor. NEURO: awake, alert, and oriented to person, place and time. There were no obvious focal neurologic abnormalities. EXTREMITIES: No joint tenderness, effusion, or edema noted. BACK: Nontender without deformity. No CVA tenderness. Course Course Emergency Course: Portions of this record may have been created with voice recognition software Level of Care: Express Care Visit Vital Signs Vital signs: Vital Signs Temperature 97.2 F L 12/08/24 09:44 Pulse Rate 72 12/08/24 09:44 Respiratory Rate 18 12/08/24 09:44 Blood Pressure 142/91 H 12/08/24 09:44 Pulse Oximetry 100 12/08/24 09:44 Oxygen Delivery Room Air 12/08/24 09:44 Temperature 97.2 F L 12/08/24 09:44 Pulse Rate 72 12/08/24 09:44 Respiratory Rate 18 12/08/24 09:44 Blood Pressure 142/91 H 12/08/24 09:44 Pulse Oximetry 100 12/08/24 09:44 Oxygen Delivery Room Air 12/08/24 09:44 MDM - Female Genitourinary MDM Narrative Medical decision making narrative: Urine dipstick showed no evidence of urinary tract infection. Urine culture pending. Symptoms are likely consistent with a cystitis. Will go ahead and treat empirically with cephalexin. Given patient's external vaginal irritation is possible she may have a vaginal yeast infection she requested to be treated. Will go ahead ahead and prescribe fluconazole. Urine hCG negative for . Patient denies any concerns for STDs and requested to be tested. STD testing is pending. Will treat for any positive results. Offered pelvic exam patient declined. Discussed physical exam findings. Advised supportive measures and signs/symptoms to go to the ER. Pt is appropriate for outpt treatment and f/u. Differential Diagnosis Differential diagnosis: Likely urinary tract infection, cystitis and other (Pyelonephritis) Lab Data Attestation: I reviewed the patient's lab results. Labs: Lab Results 12/08/24 12/08/24 Range/Units 09:49 10:11 POC Urine Color Dark POC Urine Clarity Clear POC Urine pH 6.0 POC Ur Specif [place] 1.025 POC Urine Protein Negative (Negative) POC Ur Glucose (UA) Negative (Negative) POC Urine Ketones 1+ (Negative) POC Urine Blood Negative (Negative) POC Urine Nitrite Negative (Negative) POC Urine Bilirubin 1+ (Negative) POC Urine Urobilinogen 0.2 POC U Leukocyte Esteras Negative (Negative) POC Urine HCG, Qual Negative (Negative) Discharge Plan Discharge Clinical Impression: Urinary tract infection Qualifiers: Urinary tract infection type: acute cystitis Hematuria presence: without hematuria Qualified Code(s): N30.00 - Acute cystitis without hematuria Patient Disposition: Home Condition: Stable Instructions: Antibiotic Form, Urinary Tract Infection in Women (ED) Additional Instructions: Take the antibiotic as prescribed The urine will be sent of for a culture to identify what type of bacteria is causing your infection. If the culture shows that the antibiotic will not get rid of your infection, you will be notified and a new antibiotic will be called in for you. Increase water intake You will be contacted if any of your STD test are positive and appropriate treatment will be prescribed to you at that time. you will need to follow up with your PCP 3-5 days. Go to the ER for any worsening symptoms, abdominal pain, fevers, nausea, vomiting, or any other concerns Patient Language: Malagasy Prescriptions: New cephalexin 500 mg capsule 500 mg PO BID 7 Days Qty: 14 0RF fluconazole 150 mg tablet 150 mg PO Q72H Qty: 2 0RF No Action lamotrigine 100 mg tablet prednisone 20 mg tablet See Rx Instructions .Route .COMPLEX Qty: 9 0RF Rx Instructions: Take 40 mg daily for 3 days, 20 mg daily for 3 days albuterol sulfate 90 mcg/actuation HFA aerosol inhaler 2 puff inhalation QID PRN (Reason: shortness of breath or wheezing) Qty: 6.7 0RF (DME) Aerochamber MV Spacer See Rx Instructions .Route Qty: 1 0RF Rx Instructions: As directed dextromethorphan-guaifenesin [Mucinex DM] 60-1,200 mg tablet extended release 12 hr 1 tablet PO Q12H Qty: 12 0RF clonazepam 0.5 mg tablet 0.5 mg DAILY Mirena 20 mcg/24 hours (8 yrs) 52 mg Intrauterine Device 1 device INTRAUTERINE ONCE Rx Instructions: as a single dose Follow-up/Referrals: Kandi,Elin Pagan, [employer] [Primary Care Provider] - Time of Disposition: 10:06
[2024-12-09 11:10] LABS: Trichomonas Vag PCR NOT DETECTED (NOT DETECTE)
[2024-12-09 11:34] LABS: Chlamydia trachomatis NOT DETECTED (NOT DETECTE); Neisseria gonorrhoeae PCR NOT DETECTED (NOT DETECTE)
== END 2024-12-08 10:10 | disposition home or self-care (01) ==
DX: N30.00 Acute cystitis without hematuria (principal); Z11.3 Encounter for screening for infections with a predominantly sexual mode of transmission; Z97.5 Presence of (intrauterine) contraceptive device; F41.9 Anxiety disorder, unspecified
CPT/HCPCS: 81003; 81025; 87086; 87491; 87591; 87661; 99213; G0463

== ENCOUNTER 2024-12-12 15:09 | Emergency (ER) | payer OTHER, SELFPAY ==
[2024-12-12] VITALS (11 sets, daily range): BP systolic 123–130; BP diastolic 77–96; PULSE 56–77; RESP 8–20; TEMP 36.3; O2SAT 96–100
--- NOTE | 2024-12-12 15:09 | PC.NURSE ---
patient woke up and was verbal enough to tell us that her brother works at [employer] and asked us to call him- carleen in biomed called and at bedside at this time
--- NOTE | 2024-12-12 15:11 | ECG_ITS ---
Test Date: 2024-12-12 15:17:38 Measurements Intervals [place] Rate: 67 P: 38 NV: 147 QRS: 43 QRSD: 92 T: 16 QT: 403 QTc: 428 Interpretive Statements SINUS RHYTHM NORMAL ELECTROCARDIOGRAM Compared to ECG 03/11/2024 19:37:53 NO DIFFERENCE Electronically Signed On 12-13-2024 07:34:41 CDT by Compa Mccoy M.D.
[2024-12-12 15:44] LABS: Basophils Percent Auto 0.6 % (0.2-1.2); Eosinophils Absolute Auto 0.1 K/mm3 (0-0.3); Eosinophils Percent Auto 0.9 % (0-4.4); Hematocrit 43.2 % (37.0-47.0); Hemoglobin 14.5 g/dL (12.0-15.0); Immature Granulocyte Absolute 0.01 K/mm3 (0.00-0.031); Immature Granulocyte Percent A 0.2 % (0-0.5); Lymphocytes Absolute Auto 1.25 K/mm3 (0.9-3.2); Lymphocytes Percent Auto 22.9 % (18.3-44.2); Mean Corpuscular HGB Conc 33.6 g/dl (32-36); Mean Corpuscular Hemoglobin 29.5 pg (26-34); Mean Corpuscular Volume 87.8 fl (80-100); Mean Platelet Volume 9.4 fl (7.4-10.4); Monocytes Absolute Auto 0.3 K/mm3 (0.1-0.6); Monocytes Percent Auto 5.1 % (2.6-8.5); Neutrophils Absolute Auto 3.8 K/mm3 (1.3-6.7); Neutrophils Percent Auto 70.3 % (45.5-73.1); Platelet Count Result 249 k/mm3 (150-375); Red Blood Count 4.92 M/mm3 (4.2-5.4); Red Cell Distribution Width 11.9 % (11.5-14.5); White Blood Count 5.5 K/mm3 (4.5-10.0)
[2024-12-12 15:53] LABS: Alanine Aminotransferase 16 U/L (6-35); Albumin Level 4.1 g/dL (3.5-5.1); Alkaline Phosphatase 47 U/L (38-126); Anion Gap 8 mmol/L (4-12); Aspartate Amino Transferase 21 U/L (14-36); Bilirubin,Total 1.6 mg/dL (0.2-1.3); Blood Urea Nitrogen 8 mg/dL (7-17); Calcium 9.1 mg/dL (8.4-10.2); Carbon Dioxide 23 mmol/L (22-30); Chloride 106 mmol/L (98-107); Estimated CRCL calculation 94 ml/min; Estimated Glomerular Filt Rate > 60; Glucose 100 mg/dL (65-110); Potassium 3.6 mmol/L (3.4-5.0); Sodium 137 mmol/L (137-145)
[2024-12-12 15:57] LABS: INR 1.1; Partial Thromboplastin Time 26.5 Seconds (22.3-36.8); Prothrombin Time 14.4 Seconds (11.1-14.7)
--- OUTSIDE RECORDS SUMMARY | 2024-12-12 17:21 | XMS_ITS | Data Portability ---
Author Organization [facility], Main Office Address [address] [place] [address] Assessment No assessment recorded. Plan of Treatment Reminders Order Date Submit Date Provider Last Modified By Organization Details Last Modified Time Details Appointments None recorded. Lab hemoglobin A1C, fingerstick [facility]24 025 [facility], [address] [place] [address], [address], 14:50:47 microalbumi n, dipstick, urine 2024 025 [facility] (Lab), [address] [place], [address], 5 09:00:16 lipid panel, serum 2023 024 [facility] (Lab), [address] [place], [address], 4 16:48:00 TSH, serum or plasma 2023 024 [facility] (Lab), [address] [place], [address], 4 16:48:00 CBC w/ auto diff 2023 024 [facility] (Lab), [address] [place], [address], 4 16:48:00 glycohemogl obin, total, blood 2023 024 [facility] (Lab), [address] [place], [address], 4 16:47:59 CMP, serum or plasma 2023 [facility] ([facility]), [address], [place], [address], 4 16:47:59 Referral ophthalmolo gist referral - Please call patient to schedule an appointment . Thank you. 2023 024 [email or web address], [address] , [place], [address], 08:54:14 neurologist referral - Please call patient to schedule an appointment . Thank you. 2023 024 [email or web address] Gildardo Chao MD, [address], [place], [address], 08:53:39 Procedures None recorded. Surgeries None recorded. Imaging XR, lumbosacral spine, 2 or 3 view 2023 024 [facility] - Radiology New Fax # As Of 11/05/23), [address] [place], [address], 4 11:53:03 XR, pelvis 2023 024 [facility] - Radiology New Fax # As Of 11/05/23), [address] [place], [address], 4 12:09:37 Medication Orders amoxicillin 875 mg-potassiu m clavulanate 125 mg tablet 2024 025 [facility], [address] [place], [place], [id number], 5 14:52:04 lisinopril 10 mg tablet 2024 025 [facility] #79897, [address] [place], [place], [id number], 12:56:00 lisinopril 10 mg tablet 2023 024 [facility] #79738, [address] [place], [place], [id number], 12:39:26 diclofenac sodium 75 mg tablet,megan yed release 2023 024 [facility] #95283, [address] [place], [place], [id number], 10:18:42 Patient TargetsNo targets recorded. Patient Instructions Encounter Date Encounter Id Patient Instructions Last Modified By Organization Details Last Modified Time 11/28/2024 [id number] albumin urine test: about this test [facility] Not available 11/28/2024 14:42:29 Reason for Referral Neurologist Referral for Sta tus migrainosus Please call patient to schedule an appointment. Thank you. Referring Physician: Elin Chau [facility], Encounter Date: 05/28/2024 Clean Up Person Referral for Visual disturbance Please call patient to schedule an appointment. Thank you. Referring Physician: Elin Chau [facility], Encounter Date: 05/28/2024 Results Created Date Observation Date Name Description Value Unit Range Abnormal Flag Note LastModifiedBy Organization Detail LastModifiedTime 11/29/1911/28/2024 hemog lobin A1C, finge rstic k HgbA1C 4.8 Not Available [facility]_[address], [place], [address], 11/28/2024 14:27:36 03/19/20 24 03/19/2024 XR, lumbo sacra l spine , 2 or 3 view No observ ation record ed. [facility] [address] [place], [address], 03/19/2024 12:28:24 03/19/20 24 03/19/2024 XR, pelvi s No observ ation record ed. [facility] [address], [place], [address], 03/19/2024 12:28:25 11/20/19 25 11/19/2024 lumba r punct ure (PROC ) No observ ation record ed. [facility]: Pulmonology [address], [place], [address], 11/19/2024 13:16:26 Result Notes None recorded. Problems Name Problem SNOMED Code Status Onset Date Resolution Date Notes Provider Name and Address Organization Details Recorded Time Hypoglycemia 063876001 Active 2023 MILLIE Jose [address], [address], [place], [address], [employer] 4 10:43:26 Sacral back pain 18445371 Active 2023 MILLIE Jose [address], [address], [place], [address], [employer] 4 10:45:11 Obesity 386527433 Active 2023 MILLIE Jose [address], [address], [place], [address], [employer] 4 10:51:57 Bipolar disorder 17390090 Active 2023 MILLIE Jose [address], [address], [place], [address], [employer] 4 10:52:07 Low back pain 316318191 Active 2023 MILLIE Jose [address], [address], [place], [address], [employer] 4 12:28:56 Essential hypertension 85074940 Active 2023 Lore Cesar RN null, DC [employer] [facility] 5 14:08:03 Migraine with aura 2789167 Active 2023 MILLIE Jose [address] [facility] [address], [place], [address], [employer] [facility] 4 10:28:40 Status migrainosus 000762015 Active 2023 MILLIE Jose [address] [facility] [address], [place], [address], [employer] [facility] 4 10:47:52 Visual disturbance 78544695 Active 2023 MILLIE Jose [address] [facility], [address] [address], [place], [address], [employer] 4 10:48:10 Mass of body structure 410313247 Active 2024 MILLIE Jose [address] [facility], [address] [address], [place], [address], [employer] 5 12:58:13 Ketonuria 153326138 Active 2024 MILLIE Jose [address] [facility], [address] [address], [place], [address], [employer] 5 14:26:44 Fever with chills 879340510 Active 2024 MILLIE Jose [address] [address], [place], [address], [employer] 5 14:27:54 Problem Notes None recorded. Procedures Surgical History Date Name Laterality Status Provider Name and Address Organization Details Recorded Time 07/16/19 20 delivery completed Lore Cesar RN [facility] 03/19/2024 10:32:57 delivery completed Corby Cesar RN [facility] 03/19/2024 10:32:43 Appendectomy completed Lore Cesar RN [facility] 03/19/2024 10:33:05 tonsillectomy and adenoidectomy completed Lore Cesar RN [facility] 03/19/2024 10:33:19 Imaging Results None recorded. Procedure Notes None recorded. Medical Equipment None Reported. Allergies Allergen ID Allergen Name Allergen Category Reaction Reaction Severity Criticality Documentation Date Start Date Code Code System Note Provider Name and Address Organization Details Recorded Time 39046 Vraylar medicatio n seizure moderate Not available 03/19/2024 42700 61 RxNorm suici catalina Lore Cesar RN [facility] 10:22:59 Medications Name Sig Start Date [...] blood by Pulse oximetry Heart rate Systolic blood pressure Diastolic blood pressure Provider Name and Address Organization Details Last Updated DateTime 5 167.64 cm 32 kg/m2 65935.3 9 g 97.4 [degF] 98 % 98 % 75 /min 150 mm[Hg] 100 mm[Hg] Annel Messer RN [facility] 5 12:36:44 Date Recorded Body height Body mass index (BMI) Body weight Body temperature Heart rate Respiratory rate Oxygen saturation Oxygen saturation in Arterial blood by Pulse oximetry Systolic blood pressure Diastolic blood pressure Provider Name and Address Organization Details Last Updated DateTime 5 167.64 cm 31.8 kg/m2 32618.7 g 97.9 [degF] 70 /min 20 /min 99 % 99 % 140 mm[Hg] 100 mm[Hg] Lore Cesar RN [facility] [employer] [facility] 5 14:12:37 Date Recorded Body weight Body mass index (BMI) Body height Body temperature Heart rate Respiratory rate Oxygen saturation Oxygen saturation in Arterial blood by Pulse oximetry Systolic blood pressure Diastolic blood pressure Provider Name and Address Organization Details Last Updated DateTime 4 068165. 63 g 36.3 kg/m2 167.64 cm 97.9 [degF] 85 /min 20 /min 98 % 98 % 134 mm[Hg] 102 mm[Hg] Lore Cesar RN [facility] [employer] [facility] 4 10:35:27 Date Recorded Body height Body mass index (BMI) Body weight Body temperature Heart rate Respiratory rate Oxygen saturation Oxygen saturation in Arterial blood by Pulse oximetry Systolic blood pressure Diastolic blood pressure Provider Name and Address Organization Details Last Updated DateTime 4 167.64 cm 37.6 kg/m2 434703. 07 g 97.3 [degF] 71 /min 20 /min 99 % 99 % 140 mm[Hg] 96 mm[Hg] Lore Cesar RN [facility] 4 10:21:13 Date Recorded Body height Body mass index (BMI) Body weight Body temperature Heart rate Respiratory rate Oxygen saturation Oxygen saturation in Arterial blood by Pulse oximetry Systolic blood pressure Diastolic blood pressure Provider Name and Address Organization Details Last Updated DateTime 4 167.64 cm 36.7 kg/m2 524572. 92 g 97.9 [degF] 92 /min 20 /min 99 % 99 % 160 mm[Hg] 100 mm[Hg] Lore Cesar RN [facility] 4 10:28:39 Social History Question Answer Notes LastModified by Organizat ion Details LastModified Time Tobacco Smoking Status Former Smoker Lore Cesar RN [facility] 03/19/2024 10:36:37 Do You Have An Advance [...] Do You Have A Medical Power Of Line Prep Cook? 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 Current user of electronic cigarettes Information not available 03/19/2024 What is your exercise level? Occasional Information not available 03/19/2024 Mental Status Question Answer Note LastModified by Organization D etails LastModified Time Do you feel stressed (tense, restless, nervous, or anxious, or unable to sleep at night)? [id number] Information not available 05/28/2024 Family History Relationship Description Onset Age of this Age Resolved Age Notes LastModified by Organization Details LastModified Time Mother Hypertensive disorder Not available 2023 10:32:05 Maternal Grandfather Hypertensive disorder Not available 2023 10:32:05 Medical History Condition Response HEADACHES/MIGRAINES Y OBESITY Y ANXIETY DISORDER Y DIABETES, TYPE Y OTHER # 1 Y DEPRESSION (INCLUDING POST ) Y HYPERTENSION Y Gynecological History Statement/Question Response Date of Last Pap Smear Current Control Method IUD Obstetrics History GPAL:G 0 P 0 0 0 0 Past Encounters Encounter ID Performer Location Encounter Start Date Encounter Closed Date Diagnosis/Indication Diagnosis SNOMED-CT Code Diagnosis ICD10 Code Diagnosis Note [id number] Tim Gardner MD [address] [address] 03/19/2024 09:52:14 03/19/2024 11:00:55 Hypoglycemia 676708250 E16.2 Sacral back pain 9485625 3 M54.50 Has been doing stretches at home Obesity 347010927 E66.9 Bipolar disorder 4276579 4 F31.9 Sees psych [id number] Tim Gardner MD [address] [address] 05/21/2024 10:12:08 05/21/2024 10:44:07 Essential hypertension 35411417 I10 Advised to check BP before taking, do not take of less than 130/80 Migraine with aura 35716 06 G43.109 Ubrelvy given in office [id number] Tim Gardner MD [facility] [address] [address] 05/28/2024 10:20:10 05/28/2024 11:00:01 Status migrainosus 915761858 G43.901 Due to risk of intercrani al hypertensi on, patient advised to FU at [facility] today Visual disturbance [address]2814 001 H53.9 [id number] MILLIE Jose [address] [address] 11/21/2024 12:16:07 11/24/2024 08:05:45 Essential hypertension 88577354 I10 Advised to check BP before taking, do not take of less than 130/80 Mass of arti dy structure 064039778 G93.2 Managed by neuro, just has LP and has MRI tomorrow [id number] MILLIE Jose [address] [address] 11/28/2024 14:04:00 12/02/2024 10:55:32 Ketonuria 428899665 R82.4 Identified in ER Fever with chills 256679 006 R50.9 Perisisten t x 1 week, [...] 03/19/2024 1 [facility] Elizabeth Goodwin Raphael [id number] Elizabeth Lim 05/21/2024 1 [facility] Elizabeth M Raphael [id number] Elizabeth Lim 05/28/2024 1 [facility] Elizabeth Christa Lim [id number] Elizabeth Lim 11/21/2024 1 [facility] Elizabeth Goodwin Raphael [id number] Elizabeth Lim 11/28/2024 1 [facility] Elizabeth Christa Lim [id number] Elizabeth Lim Notes Date Note Type Note Provider Name and Address Organization Details Recorded Time 03/19/2024 text/html Elizabeth Lim is a 28 year old female here today to establish care She sees psych at [facility] in [place]. Diagnosed with depression, anxiety, and bipolar. States [...] not indicatedWWE: unsure, recommended MILLIE Jose [address], [place], [address], [employer] 03/19/2024 10:55:05 05/21/2024 text/html Elizabeth Lim is [...] arrival 140/96, recheck 112/80 MILLIE Jose [address], [place], [address], [employer] 05/21/2024 10:34:46 05/28/2024 text/html Elizabeth Lim is a 28 year old female patient here today to FU on a headache She was seen here on 05/21 for a migraine, she was given a Ubrelvy sample and sent home to rest. After leaving here she began vomiting and had visual changes. She went to [facility] and was found by US to have papilledema. She was sent to [facility] for a spinal tap and MRI, [facility] saw her, did no imaging or labs and sent her home. The next morning her vision got worse and she went to [facility]. There she was given HCTZ. She is still having intermittent blurred vision, constant headache around the occipital region. Her blood pressure is still extremely elevated at 160/100, despite lisinopril and HCTZ. Pt advised to return to [facility] MILLIE Jose [address], [address], [place], [address], [employer] 05/28/2024 10:51:05 11/21/2024 text/html Elevated blood pressure. She did previously take lisinopril 10 mg and stopped this. We will restart. She did have a lumbar puncture on 11/19/24, this is normal.She has chronic migraines. She does see neurology, he states she has excessive pressure around her brain. MILLIE Jose [address], [place], [address], [employer] 11/21/2024 13:01:18 11/28/2024 text/html Sunday morning s [...] in 3 weeks. MILLIE Jose [address], [address], [place], [address], [employer] 11/28/2024 15:04:23 OBGyn Episode No OBEpisode recorded.
--- OUTSIDE RECORDS SUMMARY | 2024-12-12 17:21 | XMS_ITS | Patient Health Record ---
Author Organization [facility] Address [address] [place] [address] Care Team Providers Care Dowel Pointer Name Role Phone Sally Matamoros Primary Care Provider [phone] Soha Coles Unavailable [phone] Angie Velazquez Unavailable [phone] Yanira Pineda Unavailable Latisha Palacios Unavailable [phone] Allergies Allergen (clinical drug ingredient) Drug/Non Drug Allergy documented on EMR Reaction Allergy Type Onset Date Status cariprazine Vraylar nausea and vomiting Drug Allergy Active Reason For Referral Reason Therapy, counseling Diagnosis 1 Bipolar affective di sorder (F31.9) Diagnosis 2 Generalized anxiety disorder (F41.1) Referral Organization [facility] Referring Provider First Name Sally Referring Provider Last Name Saturnino Referring Provider Speciality Psychiatry Referred Provider Specialty Behavioral [facility] General Notes Sally Matamoros 11:06:43 AM > Client with high levels of depression and anxiety. Reports passive SI, denies any plan or intent, but reports wanting to start therapy and have further support as soon as she is able. Please refer. Thank you. Clinical Notes Ahsan Pineda 08/14/2024 02:04:11 PM > Impregnator And Drier spoke with client who states she has an appointment scheduled next sunday. Impregnator And Drier will fidelina referral as addressed. 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 Stress is when someone feels tense, nervous, anxious, or can\t sleep at night because their mind is troubled Somewhat In the past year have you sp ent more than 2 nights in a row in a longterm, long term, snf center, or juvenile correctional facility? No Do [...] Problem Status W/U Status Risk Notes Problem [id number] Morbid (severe) obesity due to excess calories (E66.01) Active confirmed Problem Generalized anxiety disorder (72003450) Generalized anxiety disorder (F41.1) Active confirmed Problem Tobacco dependence (64680045) Tobacco dependence (F17.200) Active confirmed Problem 99127164 Anxiety (F41.9) Active confirmed Problem Bipolar affective disorder (02006929) Bipolar affective disorder (F31.9) Active confirmed Problem 71959277 Depressive disorder (F32.9) Active confirmed Problem Posttraumatic stress disorder (80761681) Chronic post-traumatic stress disorder (PTSD) (F43.12) Active confirmed Problem 856789391 Obesity (BMI 30-39.9) (E66.9) Active confirmed Problem Sleep disturbance (48890387) Sleep disturbance, unspecified (G47.9) Active confirmed Problem 997475669 Body mass index (BMI) of 40.0-44.9 in adult (Z68.41) Active confirmed Vital Signs Heart Rate 85 /min 10/07/2024 Temperature 98.5 degrees Fahrenheit 10/07/2024 Respiratory Rate 16 /min 10/07/2024 Oximetry 98 % 10/07/2024 Blood pressure diastolic 78 mm Hg 10/07/2024 Height 65 in 10/07/2024 Blood pressure systolic 112 mm Hg 10/07/2024 Weight 207.2 lbs 10/07/2024 BMI 34.48 kg/m2 10/07/2024 Encounters Encounter Location Date Provider Diagnosis [address] [address] 12/17/2023 Sally Matamoros Generalized anxiety disorder F41.1 ; Bipolar affective disorder F31.9 ; Chronic post-traumatic stress disorder (PTSD) F43.12 ; Sleep disturbance, unspecified G47.9 ; Cannabis use disorder F12.90 and Medication monitoring encounter Z51.[address] [address] 02/27/2024 Angie Velazquez Generalized anxiety disorder F41.1 ; Bipolar affective disorder F31.9 ; Chronic post-traumatic stress disorder (PTSD) F43.12 ; Sleep disturbance, unspecified G47.9 ; Cannabis use disorder F12.90 and Medication monitoring encounter Z51.[address] [address] 03/26/2024 Sally Matamoros Generalized anxiety disorder F41.1 ; Bipolar affective disorder F31.9 ; Chronic post-traumatic stress disorder (PTSD) F43.12 ; Sleep disturbance, unspecified G47.9 ; Cannabis use disorder F12.90 and Medication monitoring encounter Z51.[address] [address] 05/14/2024 Sally Matamoros Generalized anxiety disorder F41.1 ; Bipolar affective disorder F31.9 ; Chronic post-traumatic stress disorder (PTSD) F43.12 ; Sleep disturbance, unspecified G47.9 ; Cannabis use disorder F12.90 and Medication monitoring encounter Z51.[address] [address] 06/02/2024 Sally Matamoros Bipolar affective disorder F31.9 ; Generalized anxiety disorder F41.1 ; Chronic post-traumatic stress disorder (PTSD) F43.12 ; Sleep disturbance, unspecified G47.9 ; Cannabis use disorder F12.90 and Medication monitoring encounter Z51.[address] [address] 08/13/2024 Sally Matamoros Bipolar affective disorder F31.9 ; Generalized anxiety disorder F41.1 ; Chronic post-traumatic stress disorder (PTSD) F43.12 ; Sleep disturbance, unspecified G47.9 ; Cannabis use disorder F12.90 and Medication monitoring encounter Z51.[address] [address] 09/03/2024 Sally Matamoros Bipolar affective disorder F31.9 ; Generalized anxiety disorder F41.1 ; Chronic post-traumatic stress disorder (PTSD) F43.12 ; Sleep disturbance, unspecified G47.9 ; Cannabis use disorder F12.90 and Medication monitoring encounter Z51.[address] [address] 10/01/2024 Sally Matamoros Bipolar affective disorder F31.9 ; Generalized anxiety disorder F41.1 ; Chronic post-traumatic stress disorder (PTSD) F43.12 ; Sleep disturbance, unspecified G47.9 ; Cannabis use disorder F12.90 and Medication monitoring encounter Z51.81 [address] [place] [address] 10/07/2024 Sally Matamoros Bipolar affective disorder F31.9 ; Generalized anxiety disorder F41.1 ; Chronic post-traumatic stress disorder (PTSD) F43.12 ; Sleep disturbance, unspecified G47.9 ; Cannabis use disorder F12.90 and Medication monitoring encounter Z51.[address] [place] [address] 10/15/2024 Latisha Palacios Anxiety F41.9 [address] [place] [address] 10/21/2024 Sally Matamoros Bipolar affective disorder F31.9 ; Generalized anxiety disorder F41.1 ; Chronic post-traumatic stress disorder (PTSD) F43.12 ; Sleep disturbance, unspecified G47.9 ; Cannabis use disorder F12.90 and Medication monitoring encounter Z51.81 [address] [address] [place] [address] 11/04/2024 Sally Matamoros Bipolar affective disorder F31.9 ; Generalized anxiety disorder F41.1 ; Chronic post-traumatic stress disorder (PTSD) F43.12 ; Sleep disturbance, unspecified G47.9 ; Cannabis use disorder F12.90 and Medication monitoring encounter Z51.[address] [place] [address] 12/17/2023 Sally Matamoros [address] [address] 02/28/2024 Angie Velazquez Bipolar affective disorder F31.[address] [place] [address] 03/26/2024 Sally Matamoros [address] [place] [address] 05/14/2024 Sally Manzanonnan [address] [address] 05/19/2024 Sally Matamoros Bipolar affective disorder F31.9 [facility] [address], [place] [address] 08/13/2024 Sallyadi Matamoros [facility] [address] [place] [address] 08/14/2024 Sally Matamoros [facility] [address] [place] [address] 08/14/2024 Yanira Pineda [facility] [address] [place] [address] 08/26/2024 Sally Matamoros Bipolar affective disorder F31.9 [facility] [address] [place] [address] 10/01/2024 Sally Matamoros [address] [place] [address] 10/01/2024 Sally Matamoros [facility] [address] [place] [address] 10/01/2024 Sally Matamoros [address] [place] [address] 10/10/2024 Sally Matamoros [address] [place] [address] 10/13/2024 Sally Matamoros [address] [place] [address] 10/15/2024 Sally Matamoros [address] [place] [address] 10/16/2024 Sally Matamoros [address] [place] [address] 10/30/2024 Sally Matamoros [address] [place] [address] 10/17/2024 Sally Matamoros [address] [place] [address] 11/11/2024 Sally Matamoros Bipolar affective disorder F31.[address] [place] [address] 12/07/2024 Sally Matamoros [facility] [place] [address] 12/07/2024 Sally Garciaan Generalized anxiety disorder F41.1 Assessments Encounter Date Diagnosis (ICD Code) Assessment Notes Treatment Notes Treatment Clinical Notes Section Notes 02/28/2024 Bipolar affective disorder (ICD-10 - F31.9) 05/19/2024 Bipolar affective disorder (ICD-10 - F31.9) 06/02/2024 Bipolar affective disorder (ICD-10 - F31.9) [place] agreement to continue current regimen Past: Seroquel Past trials: Seroquel- headache at higher doses. Abilify- just stopped working. Retried Abilify and felt shaky. Risperdal- SE not tolerable. Topamax- headache, slurrred words per client- hx of doing well on Topamax. Client reports SI on lamotrigine. Discussed [facility] 10/21/2024 Bipolar affective disorder (ICD-10 - F31.9) [...] Client reports SI on lamotrigine. Discussed [facility] 12/17/2023 Generalized anxiety disorder (ICD-10 - F41.1) Changing forms to ODT as client reports waiting for clonazepam tablets to kick in has been causing troubles with work and prolonging pseudoseizure activity. Past trials: hydroxyzine, buspar, fluoxetin, celexa, venlafaxine, propranolol Clonazepam on for rare, PRN use only. Discussed controlled sub with patient. PDMP checked without concerns 05/14/2024 Generalized anxiety disorder (ICD-10 - F41.1) Past trials: hydroxyzine, buspar, fluoxetin, celexa, venlafaxine, propranolol Clonazepam on for rare, PRN use only. Discussed controlled sub with patient. PDMP checked without concerns 12/07/2024 Generalized anxiety disorder (ICD-10 - F41.1) 11/04/2024 Bipolar affective disorder (ICD-10 - F31.9) Increase Depakote/Valproic Acid. Take as prescribed. Purpose - promote mood stability. Reviewed side effects, including sedation, dose-dependent tremor, dizziness, ataxia, asthenia, headache abdominal pain, GI distress, and alopecia. Rarely can cause liver or pancreas dysfunction/failure. Labs in 1 week. [facility] weaned, stop today. Past: Seroquel Past trials: Seroquel- headache at higher doses. Abilify- just stopped working. Retried Abilify and felt shaky. Risperdal- SE not tolerable. Topamax- headache, slurrred words per client- hx of doing well on Topamax. Client reports SI on lamotrigine. Discussed [facility] 10/07/2024 Bipolar affective disorder (ICD-10 - F31.9) Past: Seroquel Past trials: Seroquel- headache at higher doses. Abilify- just stopped working. Retried Abilify and felt shaky. Risperdal- SE not tolerable. Topamax- headache, slurrred words per client- hx of doing well on Topamax. Client reports SI on lamotrigine. Discussed [facility] 09/03/2024 Bipolar affective disorder (ICD-10 - F31.9) Recent labwork at 0.3 level- Increase lithium. Take as prescribed. Discussed uses for bipolar depression with SI. Reviewed risks associated like toxicity and water intake, cardiovascular changes. Educated on monitoring weight, kidney function and therapeutic blood trough levels. [facility]: Have lithium level drawn after taking [...] Client reports SI on lamotrigine. Discussed [facility] 08/26/2024 Bipolar affective disorder (ICD-10 - F31.9) 08/13/2024 Bipolar affective disorder (ICD-10 - F31.9) Start lithium. Take as prescribed. Discussed uses for bipolar depression with SI. Reviewed risks associated like toxicity and water intake, cardiovascular changes. Educated on monitoring weight, kidney function and therapeutic blood trough levels. [facility]: Have lithium level drawn after taking [...] Client reports SI on lamotrigine. Discussed [facility] 11/11/2024 Bipolar affective disorder (ICD-10 - F31.9) 10/15/2024 Anxiety (ICD-10 - F41.9) 10/01/2024 Bipolar affective disorder (ICD-10 - F31.9) Will request hospital records, decreasing dose and monitoring, get lab Sunday morning to keep close eye on levels. Labs to [facility] Past: Seroquel Past trials: Seroquel- headache at higher doses. Abilify- just stopped working. Retried Abilify and felt shaky. Risperdal- SE not tolerable. Topamax- headache, slurrred words per client- hx of doing well on Topamax. Client reports SI on lamotrigine. [facility]ed [facility] 03/26/2024 Generalized anxiety disorder (ICD-10 - F41.1) [...] with patient. PDMP checked without concerns 09/03/2024 Generalized anxiety disorder (ICD-10 - F41.1) Past trials: hydroxyzine, buspar, fluoxetin, celexa, venlafaxine, propranolol Clonazepam on for rare, PRN use only. Discussed controlled sub with patient. PDMP checked without concerns 02/27/2024 Bipolar affective disorder (ICD-10 - F31.9) Continue current regimen as client reports stability but trouble with memoriy and concentration at 200mg, decreasing to 175mg as mood improvement noted. Past trials: Seroquel- headache at higher doses. Abilify- just stopped working. Risperdal- SE not tolerable. Topamax- headache, slurrred words per client- hx of doing well on Topamax. Client reports SI on lamotrigine. 03/26/2024 Bipolar affective disorder (ICD-10 - F31.9) [...] reports SI on lamotrigine. Ordering [facility] testing. 10/01/2024 Generalized anxiety disorder (ICD-10 - F41.1) Past trials: hydroxyzine, buspar, fluoxetin, celexa, venlafaxine, propranolol Changing to lorazepam as client reports this helped when in the hospital recently. Discussed controlled sub with patient. DO NOT DRINK ETOH WITH THESE MEDICATIONS- client v/u and states she will not be drinking. States did not take with ETOH use Sat. PDMP checked without concerns 08/13/2024 Generalized anxiety disorder (ICD-10 - F41.1) Past trials: hydroxyzine, buspar, fluoxetin, celexa, venlafaxine, propranolol Clonazepam on for rare, PRN use only. Discussed controlled sub with patient. PDMP checked without concerns 10/21/2024 Generalized anxiety disorder (ICD-10 - F41.1) Past trials: hydroxyzine, buspar, fluoxetin, celexa, venlafaxine, propranolol Discussed controlled sub with patient. DO NOT DRINK ETOH WITH THESE MEDICATIONS- client v/u and states she will not be drinking. PDMP checked without concerns 10/07/2024 Generalized anxiety [...] not be drinking. PDMP checked without concerns 05/14/2024 Bipolar affective disorder (ICD-10 - F31.9) [...] reports SI on lamotrigine. Ordered [facility] testing. 12/17/2023 Bipolar affective disorder (ICD-10 - F31.9) Continue current regimen as client reports stability but trouble with memoriy and concentration at 200mg, decreasing to 175mg as mood improvement noted. Past trials: Seroquel- headache at higher doses. Abilify- just stopped working. Risperdal- SE not tolerable. Topamax- headache, slurrred words per client- hx of doing well on Topamax. 06/02/2024 Generalized anxiety disorder (ICD-10 - F41.1) Past trials: hydroxyzine, buspar, fluoxetin, celexa, venlafaxine, propranolol Clonazepam on for rare, PRN use only. Discussed controlled sub with patient. PDMP checked without concerns 06/02/2024 Chronic post-traumatic stress disorder (PTSD) (ICD-10 - F43.12) encouraged therapy/counseling 10/21/2024 Chronic post-traumatic stress disorder (PTSD) (ICD-10 - F43.12) encouraged therapy/counseling 12/17/2023 Chronic post-traumatic stress disorder (PTSD) (ICD-10 - F43.12) encouraged therapy/counseling 05/14/2024 Chronic post-traumatic stress disorder (PTSD) (ICD-10 - F43.12) encouraged therapy/counseling 11/04/2024 Chronic post-traumatic stress disorder (PTSD) (ICD-10 - F43.12) encouraged therapy/counseling 09/03/2024 Chronic post-traumatic stress disorder (PTSD) (ICD-10 [...] (PTSD) (ICD-10 - F43.12) encouraged therapy/counseling 02/27/2024 Sleep disturbance, unspecified (ICD-10 - G47.9) [...] unspecified (ICD-10 - G47.9) Discouraged caffeine intake. 12/17/2023 Sleep disturbance, unspecified (ICD-10 - G47.9) Discouraged caffeine intake. 10/21/2024 Sleep disturbance, unspecified (ICD-10 - G47.9) Discouraged caffeine intake. 06/02/2024 Sleep disturbance, unspecified (ICD-10 - G47.9) Discouraged caffeine intake. 06/02/2024 Cannabis use disorder (ICD-10 - F12.90) [...] or cause adverse reactions. Patient voiced understanding. 09/03/2024 Cannabis use disorder (ICD-10 - F12.90) [...] cause adverse reactions. Patient voiced understanding. 02/27/2024 Medication monitoring encounter (ICD-10 - Z51.81) May self-administer medications or be administered own oral medications per [facility] protocols. Provided informed consent with understanding of side effects, adverse effects, risks and benefits as well as alternative treatments as previously discussed and with the above recommended medications & other aspects of the treatment program. Agrees to return sooner if symptoms worsen or suicidal or homicidal ideations occur. 10/01/2024 Medication monitoring encounter (ICD-10 - Z51.81) 03/26/2024 Medication monitoring encounter (ICD-10 - Z51.81) 08/13/2024 Medication monitoring encounter (ICD-10 - Z51.81) 09/03/2024 Medication monitoring encounter (ICD-10 - Z51.81) 11/04/2024 Medication monitoring encounter (ICD-10 - Z51.81) 10/07/2024 Medication monitoring encounter (ICD-10 - Z51.81) 05/14/2024 Medication monitoring encounter (ICD-10 - Z51.81) 12/17/2023 Medication monitoring encounter (ICD-10 - Z51.81) 10/21/2024 Medication monitoring encounter (ICD-10 - Z51.81) 06/02/2024 Medication monitoring encounter (ICD-10 - Z51.81) 12/17/2023 [...] May also contact the 24-hour crisis hotline ([facility]), refer to the closest emergency room or [...] May also contact the 24-hour crisis hotline ([facility]), refer to the closest emergency room or [...] May also contact the 24-hour crisis hotline ([facility]), refer to the closest emergency room or [...] May also contact the 24-hour crisis hotline ([facility]), refer to the closest emergency room or [...] May also contact the 24-hour crisis hotline ([facility]), refer to the closest emergency room or [...] May also contact the 24-hour crisis hotline ([facility]), refer to the closest emergency room or [...] May also contact the 24-hour crisis hotline ([facility]), refer to the closest emergency room or [...] treatment plan and follow up. 10/15/2024 Other Impregnator And Drier met with client via telehealth to discuss referral. The race and sports book writer encouraged and engaged in critical thinking of [...] May also contact the 24-hour crisis hotline ([facility]), refer to the closest emergency room or [...] May also contact the 24-hour crisis hotline ([facility]), refer to the closest emergency room or [...] Metabolic Panel* Next Appt Details Provider Name:Sally brink, 12/17/2024 08:40:00 AM, [address] [facility], [place], [address], Insurance Providers Payer Name Payer Address Payer Phone Subscriber Number Group Number Insured Name Patient Relationship to Insured Coverage Start Date Coverage End Date Melty [facility] [address] [place] [phone] [id number] Elizabeth Lim Self - patient is the insured 2 [facility] Claims Department [address] [place] [address] [id number] Elizabeth Lim Self - patient is the insured 6 1 [employer] [facility] Claims Department [address] [place] [address] [id number] Elizabeth Lim Self - patient is the insured 2 1 [facility] [address] [place] [phone] [id number] Elizabeth Lim Self - patient is the insured 2 Melty [facility] [address] [place] [phone] [id number] Elizabeth Lim Self - patient is the insured 5 Medical (General) History Medical History History ICD Code Anxiety Bipolar disorder Major depressive disorder, single episod e, unspecified F32.9 Seizures R56.9 Surgical History Surgery Date(Month/Year) 01/2017 appendectomy Hospitalization History Reason Date(Month/Year) Seizure hospitalization at [facility] 10/05/24
--- OUTSIDE RECORDS SUMMARY | 2024-12-12 17:21 | XMS_ITS | Clinical Summary ---
Author Organization [facility] Address [address] [place] [address] Care Team Providers Care Furniture Finisher Helper Name Role Phone Unavailable Primary Care Provider Unavailabl e Source Comments [facility],non-owned Affiliates and Associated Physician Practices is amultiple site organization consisting of ambulatory clinics and hospital sitesin [place], [place], [place] and [place]. This disclosure is being madepursuant to the Care Everywhere program and may not contain all information available regarding this patient. Last updated 18.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
--- OUTSIDE RECORDS SUMMARY | 2024-12-12 17:21 | XMS_ITS | Referral Summary ---
Author Organization [facility] Address [address] [place] [address] Care Team Providers Care Pharmaceutical Officer Name Role Phone Unknown, Notinfile Primary Care [...] 06/02/2024 Assessment & Plan (06/02/2024 11:51 AM CURRICULUM DEVELOPMENT SPECIALIST): No papilledema on multiple exams, HVF and [...] on file Legal Sex Female 4:24 AM CURRICULUM DEVELOPMENT SPECIALIST Gender Identity Not on file Sexual Orientation Not on file Last Filed Vital Signs Vital Sign Reading Time Taken Comments Blood Pressure 128/95 05/28/2024 3:31 PM CURRICULUM DEVELOPMENT SPECIALIST Pulse 70 05/28/2024 3:31 PM CURRICULUM DEVELOPMENT SPECIALIST Temperature 36.7 C (98.1 F) 05/28/2024 11:51 AM CURRICULUM DEVELOPMENT SPECIALIST Respiratory Rate 16 05/28/2024 3:31 PM CURRICULUM DEVELOPMENT SPECIALIST Oxygen Saturation 99% 05/28/2024 3:31 PM CURRICULUM DEVELOPMENT SPECIALIST Inhaled Oxygen Concentration - - Weight 104.3 kg (229 lb 15 oz) 05/28/2024 11:51 AM CURRICULUM DEVELOPMENT SPECIALIST Height 165.1 cm (5' 5) 05/28/2024 11:51 AM CURRICULUM DEVELOPMENT SPECIALIST Body Mass Index 38.26 05/28/2024 11:51 AM CURRICULUM DEVELOPMENT SPECIALIST Plan of Treatment Not on file Insurance Care Teams Pharmaceutical Officer Relationship Specialty Start Date End Date Unknown, Notinfile PCP - General 05/22/24
--- OUTSIDE RECORDS SUMMARY | 2024-12-12 17:21 | XMS_ITS | Clinical Summary ---
Author Organization [facility] Address [address] [place] [address] Care Team Providers Care Crop Grain Or Livestock Farm Manager Name Role Phone Unknown, Notinfile Primary Care [...] 06/02/2024 Assessment & Plan (06/02/2024 11:51 AM GEOGRAPHIC ANALYST): No papilledema on multiple exams, HVF and [...] on file Legal Sex Female 4:24 AM GEOGRAPHIC ANALYST Gender Identity Not on file Sexual Orientation Not on file Obstetrics History Last Filed Vital Signs Vital Sign Reading Time Taken Comments Blood Pressure 128/95 05/28/2024 3:31 PM GEOGRAPHIC ANALYST Pulse 70 05/28/2024 3:31 PM GEOGRAPHIC ANALYST Temperature 36.7 C (98.1 F) 05/28/2024 11:51 AM GEOGRAPHIC ANALYST Respiratory Rate 16 05/28/2024 3:31 PM GEOGRAPHIC ANALYST Oxygen Saturation 99% 05/28/2024 3:31 PM GEOGRAPHIC ANALYST Inhaled Oxygen Concentration - - Weight 104.3 kg (229 lb 15 oz) 05/28/2024 11:51 AM GEOGRAPHIC ANALYST Height 165.1 cm (5' 5) 05/28/2024 11:51 AM GEOGRAPHIC ANALYST Body Mass Index 38.26 05/28/2024 11:51 AM GEOGRAPHIC ANALYST Plan of Treatment Health Maintenance Due Date [...] patient's age to complete this topic Insurance [facility] Care Teams Crop Grain Or Livestock Farm Manager Relationship Specialty Start Date End Date Unknown, Notinfile PCP - General 05/22/24
[2024-12-12 17:22] LABS: BEDSIDEPREGUCG Negative (Negative)
[2024-12-12 17:28] LABS: Add Urine Microscopic? NO; Appearance Urine Clear (Clear); Bilirubin Urine Negative (Negative); Blood Urine Negative (Negative); Color Urine Yellow (Yellow); Glucose Urine UA Negative (Negative); Ketones Urine Negative (Negative); Leukocyte Esterase Ur Negative LEU/UL (Negative); Nitrate Urine Negative (Negative); Protein Urine Negative (Negative); Specific Grav Ur 1.011 (1.001-1.035)
--- NOTE | 2024-12-12 17:37 | ED_ITS ---
HPI - General Adult General Chief complaint: Seizure Stated complaint: Seizures Time Seen by Provider: 12/12/24 16:22 History of Present Illness HPI narrative: Patient is a 29-year-old female who presents ER a seizure. Patient reports increased stress consciousness were. 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 She has no is not epileptiform seizures. She feels better at this time. No tongue biting or urinary incontinence. Everything is managed by her psychiatrist. Related Data Home Medications ?Medication ?Instructions ?Recorded ?Confirmed ?Last Taken ?Type clonazepam 0.5 mg tablet 0.5 mg DAILY 06/09/22 08/04/23 Unknown History levonorgestrel (Mirena) 1 device intrauterine ONCE 06/09/22 08/04/23 Unknown History lamotrigine 100 mg tablet mg 08/04/23 08/04/23 Unknown History Allergies Allergy/AdvReac Type Severity Reaction Status Date / Time No Known Allergies Allergy Verified 12/08/24 09:52 Review of Systems 2 Review of Systems: All systems reviewed & are unremarkable except as noted in HPI and below Constitutional: Constitutional: Reports no additional constitutional complaints Cardiovascular: Cardiovascular: Reports no additional cardiovascular complaints Respiratory: Respiratory: Reports no additional respiratory complaints Musculoskeletal: Musculoskeletal: Reports no additional musculoskeletal complaints Neurologic: Reports system reviewed and no additional complaints, except as documented PMFSH Past Medical History Medical History Anxiety Pseudoseizure Surgical History Surgical History History of appendectomy Social History Social History Smoking status: Never smoker Exam 2 Narrative: GENERAL: Well-appearing, well-nourished, and in no acute distress. HEAD: Normocephalic, atraumatic. EYES: PERRL and EOMI. ENT: Mucous membranes moist. No tongue biting. CHEST: Clear to auscultation. No respiratory distress. HEART: Regular rate and rhythm. Normal peripheral pulses. ABDOMEN: Soft, nontender, nondistended,. EXTREMITIES: Normal range of motion. No edema. SKIN: Warm, dry, no rash. NEURO: Alert and oriented x3. PSYCH: Normal mood and affect. Course Course Emergency Course: Patient feels well. Normal urinalysis/CMP/CBC/coags. EKG normal. Appropriate for discharge home. Vital Signs Vital signs: Vital Signs Temperature 97.3 F L 12/12/24 14:59 Pulse Rate 77 12/12/24 14:59 Respiratory Rate 20 12/12/24 14:59 Blood Pressure 130/94 H 12/12/24 14:59 Pulse Oximetry 96 12/12/24 14:59 Oxygen Delivery Room Air 12/12/24 14:59 Temperature 97.3 F L 12/12/24 14:59 Pulse Rate 61 12/12/24 16:51 Respiratory Rate 19 12/12/24 16:51 Blood Pressure 123/77 12/12/24 16:46 Pulse Oximetry 99 12/12/24 16:51 Oxygen Delivery Room Air 12/12/24 15:10 Medical Decision Making Vital Signs Vital Signs: Vital Signs Temperature 97.3 F L 12/12/24 14:59 Pulse Rate 77 12/12/24 14:59 Respiratory Rate 20 12/12/24 14:59 Blood Pressure 130/94 H 12/12/24 14:59 Pulse Oximetry 96 12/12/24 14:59 Oxygen Delivery Room Air 12/12/24 14:59 Temperature 97.3 F L 12/12/24 14:59 Pulse Rate 61 12/12/24 16:51 Respiratory Rate 19 12/12/24 16:51 Blood Pressure 123/77 12/12/24 16:46 Pulse Oximetry 99 12/12/24 16:51 Oxygen Delivery Room Air 12/12/24 15:10 Lab Data 12/12/24 15:38 12/12/24 15:38 Labs: Lab Results 12/12/24 12/12/24 12/12/24 Range/Units 15:11 15:38 17:19 WBC 5.5 (4.5-10.0) K/mm3 RBC 4.92 (4.2-5.4) M/mm3 Hgb 14.5 (12.0-15.0) g/dL Hct 43.2 (37.0-47.0) % MCV 87.8 (80-100) fl MCH 29.5 (26-34) pg MCHC 33.6 (32-36) g/dl RDW 11.9 (11.5-14.5) % Plt Count 249 (150-375) k/mm3 MPV 9.4 (7.4-10.4) fl Immature Gran % (Auto) 0.2 (0-0.5) % Neut % (Auto) 70.3 (45.5-73.1) % Lymph % (Auto) 22.9 (18.3-44.2) % Dent % (Auto) 5.1 (2.6-8.5) % Eos % (Auto) 0.9 (0-4.4) % Baso % (Auto) 0.6 (0.2-1.2) % Lymph # (Auto) 1.25 (0.9-3.2) K/mm3 Dent # (Auto) 0.3 (0.1-0.6) K/mm3 Eos # (Auto) 0.1 (0-0.3) K/mm3 Baso # (Auto) 0.0 (0.0-0.1) K/mm3 Abs Immat Gran (auto) 0.01 (0.00-0.031) K/mm3 Absolute Neuts (auto) 3.8 (1.3-6.7) K/mm3 Absolute Nucleated RBC 0.000 (0.0-0.012) K/mm3 Nucleated RBC % 0.0 (0.0-0.2) % PT 14.4 (11.1-14.7) Seconds INR 1.1 APTT 26.5 (22.3-36.8) Seconds Sodium 137 (137-145) mmol/L Potassium 3.6 (3.4-5.0) mmol/L Chloride 106 (98-107) mmol/L Carbon Dioxide 23 (22-30) mmol/L Anion Gap 8 (4-12) mmol/L BUN 8 D (7-17) mg/dL Creatinine 0.76 (0.7-1.0) mg/dL Estim Creat Clear Calc 94 ml/min Estimated GFR > 60 (59 - ) Glucose 100 (65-110) mg/dL Calcium 9.1 (8.4-10.2) mg/dL Total Bilirubin 1.6 H (0.2-1.3) mg/dL AST 21 (14-36) U/L ALT 16 (6-35) U/L Alkaline Phosphatase 47 (38-126) U/L Total Protein 7.0 (6.3-8.2) g/dL Albumin 4.1 (3.5-5.1) g/dL Urine Color Yellow (Yellow) Urine Appearance Clear (Clear) Urine pH 7.0 (5.0-9.0) Ur Specific [place] 1.011 (1.001-1.035) Urine Protein Negative (Negative) mg/dL Urine Glucose (UA) Negative (Negative) mg/dL Urine Ketones Negative (Negative) mg/dL Ur Blood (Man) Negative (Negative) Urine Nitrate Negative (Negative) Urine Bilirubin Negative (Negative) Urine Urobilinogen 1.0 (<2.0) mg/dL Leukocyte Esterase Rfl Negative (Negative) KYRA/UL POC Urine HCG, Qual Negative (Negative) ECG Data EKG #1: ECG completion date: 12/12/24 ECG completion time: 15:17 EKG Interpretation: normal rate (67), sinus rhythm, non-specific ST changes, normal QRS and normal QT Discharge Plan Discharge Clinical Impression: Pseudoseizure Patient Disposition: Home Condition: Stable Instructions: Nonepileptic Seizures (ED) Additional Instructions: Return ER if you have fever 4? F, he can not keep down food water, you lose consciousness, or have additional concerns. Patient Language: Lithuanian Prescriptions: No Action lamotrigine 100 mg tablet prednisone 20 mg tablet See Rx Instructions .Route .COMPLEX Qty: 9 0RF Rx Instructions: Take 40 mg daily for 3 days, 20 mg daily for 3 days albuterol sulfate 90 mcg/actuation HFA aerosol inhaler 2 puff inhalation QID PRN (Reason: shortness of breath or wheezing) Qty: 6.7 0RF (DME) Aerochamber MV Spacer See Rx Instructions .Route Qty: 1 0RF Rx Instructions: As directed cephalexin 500 mg capsule 500 mg PO BID 7 Days Qty: 14 0RF fluconazole 150 mg tablet 150 mg PO Q72H Qty: 2 0RF dextromethorphan-guaifenesin [Mucinex DM] 60-1,200 mg tablet extended release 12 hr 1 tablet PO Q12H Qty: 12 0RF clonazepam 0.5 mg tablet 0.5 mg DAILY Mirena 20 mcg/24 hours (8 yrs) 52 mg Intrauterine Device 1 device INTRAUTERINE ONCE Rx Instructions: as a single dose Follow-up/Referrals: Kandi,Elin Pagan, BROOCH AND BRACELET MAKER [Primary Care Provider] - 1 Week
== END 2024-12-12 17:49 | disposition home or self-care (01) ==
PROVIDERS: Emergency Medicine; Emergency Provider Emergency Medicine
DX: R56.9 Unspecified convulsions (principal)
CPT/HCPCS: 36415; 80053; 81003; 81025; 85025; 85610; 85730; 93005; 99284

== ENCOUNTER 2025-01-30 13:38 | Emergency (ER) | payer OTHER, SELFPAY ==
--- OUTSIDE RECORDS SUMMARY | 2025-01-30 13:42 | XMS_ITS | Encounter Summary ---
Author Organization [facility] Address Replaced by [facility] [place] [address] Care Team Providers Care Manager Telecom Name Role Phone Lakshmi Flor MD Primary Care Provider Unavailab Airam Weinstein DISPATCHER SHIP PILOT Primary Care Provider Unav ailable Won Faustin MD Primary Care Provider [phone] Elin Chau DISPATCHER SHIP PILOT Primary Care Provider [phone] Encounter Details Date Type Department Care Team (Late st Contact Info) Description 02/11/2020 Hospital Orders Only [facility] [address] [place] [address] Prema Jc DO [address] [place] [address] Social History Tobacco Use Types Packs/Day Years Used Date Smoking Tobacco: Never Smokeless Tobacco: Never Alcohol Use Standard Drinks/Week Comments Not Asked 0 (1 standard drink = 0.6 oz pur e alcohol) Comments Yes Sex and Gender Information Value Date Recorded Sex Assigned at Female 09/30/2024 1:32 PM CDT Legal Sex Female 7:07 PM CDT Gender Identity Not on file Sexual Orientation Not on file Occupation Industry Job Start Date Job End Date Not on file Not on file Not on file Not on file COVID-19 Exposure Response Date Recorded In the last month, have you been in contact with someone who was confirmed or suspected to have Coronavirus / COVID-19? No / Unsure 02/11/2020 1:53 PM CDT documented as of this encounter Plan of Treatment Upcoming Encounters Date Type Department Care Team (Late st Contact Info) Description 03/24/2025 8:40 AM CDT Office Visit [facility] [address] [facility], [address] [place] [address] Gildardo Chao MD [address] [place] [address] 03/30/2025 2:15 PM CDT Office Visit [facility] [address] [place] [address] Marquis Salmeron MD [facility]. [place] [facility] [place] [address] 05/18/2025 1:20 PM TRANSMITTER ENGINEER IN CHARGE Office Visit [facility] [address], [address] [place] [address] Gildardo Chao MD [address] [place] [address] documented as of this encounter Visit Diagnoses Diagnosis (HHS/HCC)- Primary state, incidental documented in this encounter Additional Health Concerns Infection Onset Date Last Indicated Resolved Time COVID-19 Rule Out 06/07/2021 06/07/2021 06/07/2021 11:27 AM TRANSMITTER ENGINEER IN CHARGE COVID-19 Confirmed 06/07/2021 06/07/2021 12:32 AM TRANSMITTER ENGINEER IN CHARGE COVID-19 Rule Out 08/07/2023 08/07/2023 08/07/2023 9:37 AM TRANSMITTER ENGINEER IN CHARGE Influenza - Seasonal 08/07/2023 08/07/2023 024 12:33 AM TRANSMITTER ENGINEER IN CHARGE COVID-19 Rule Out 08/07/2023 08/07/2023 08/07/2023 12:46 PM TRANSMITTER ENGINEER IN CHARGE Respiratory Rule Out 11/23/2024 11/23/2024 025 7:34 PM CDT COVID-19 Rule Out 11/23/2024 11/23/2024 11/23/2024 7:33 PM CDT documented as of this encounter Care Teams Manager Telecom Relationship Specialty Start Date End Date Lakshmi Flor MD PCP - General INTERNAL MEDICINE 09/27/17 03/18/20 Airam Daniel NP PCP - General NURSE PRACTITIONER 03/19/20 05/16/21 [place] [address] [place] [address] PCP - General FAMILY PRACTICE 05/17/21 03/18/24 Elin Chau NP [address] [place] [address] PCP - General NURSE PRACTITIONER 03/19/24 documented as of this encounter
--- OUTSIDE RECORDS SUMMARY | 2025-01-30 13:42 | XMS_ITS | Clinical Summary ---
Author Organization [facility] Address [address] [place] [address] Care Team Providers Care Client Service Manager Name Role Phone Kandi Elin FRANKLIN Primary Care Provider [phone] Allergies Active Allergy Reactions Criticality Noted Date Comments Cariprazine Seizure Medium 11/03/2024 Vraylar Medications lithium CR (LITHOBID) 450 MG tablet Take 2 tablets (900 mg total) by mouth nightly at bedtime. Active LORazepam (ATIVAN) 0.5 MG tablet Take 1 tablet (0.5 mg total) by mouth 3 (three) times daily. 5 Active divalproex ER (DEPAKOTE) 500 MG 24 hr tablet TAKE ONE TABLET BY MOUTH AT BEDTIME WITH ONE LITHIUM 300MG STARTING ON 10/28/24 Active topiramate (TOPAMAX) 25 MG tablet Take 2 tablets (50 mg total) by mouth daily. Active lisinopril (PRINIVIL) 10 MG tablet Take 1 tablet (10 mg total) by mouth daily. Active topiramate (TOPAMAX) 50 MG TabIndications:M igraine without aura, not intractable, without status migrainosus Take 1 tablet (50 mg total) by mouth daily. 30 tablet 11 5 Active clonazePAM (KLONOPIN) 0.5 MG tablet Take 1 tablet (0.5 mg total) by mouth every 12 (twelve) hours. Active Active Problems Problem Noted Date Diagnosed Date Pelvic pain 08/12/2021 ([facility]/HCC) 04/08/2020 Acute left ankle pain 03/10/2019 Acute cystitis without hematuria 02/27/2019 Assessment & Plan (02/27/2019 9:27 AM CDT): Positive dip stick. Will treat with nitrofurantoin. Will call if not sensitive and need to change. Otherwise she will call if no improvement Chronic tension-type headache, not intractable 1 07/27/2017 Assessment & Plan (05/27/2018 12:57 PM PAPER CONE MAKER): Suspect some medication over use contributing. She is already on topamax Stop taking tylenol and drinking caffeine and may have worsening fo headache for next 48 hrs but then should improve Osteochondral defect of ankle 10/03/2017 Essential hypertension 03/12/2017 Assessment & Plan (05/27/2018 12:58 PM PAPER CONE MAKER): Currently controlled off HCTZ. Check BP at home and call if > 140/100 consistently Depression 07/05/2016 Overview (05/11/2018): Description: Soha Marshall is her psychiatrist. Assessment & Plan (05/27/2018 12:58 PM PAPER CONE MAKER): Stable. Managed by psychiatrist Psychogenic nonepileptic seizure 07/05/2016 Syncope 01/23/2013 Anxiety Encounters Date Type Department Care Team Description 01/07/2025 7:34 PM CDT - 01/07/2025 9:31 PM CDT Emergency [facility] Emergency Room [address] [place] [address] Ced Douglas MD Skin Problem Discharge Disposition: Home or Self Care (Routine Discharge) 01/07/2025 Travel 12/22/2024 7:20 AM CDT Office Visit [facility] Multispec[facility]ty Care - [facility] [address], [address] [place] [phone] Gildardo Chao MD Follow Up (Pseudotumor cerebri); Headache (Migraine days per week: 2-3) 12/22/2024 Travel 12/15/2024 MyChart Message Enc [facility] Medical [facility] - [facility] [address], [address] [place] [address] Tara, [facility] Provider Results 12/10/2024 11:00 AM CDT - 12/10/2024 11:59 PM CDT Hospital Encounter [facility] Open MRI [address] [place] [address] Gildardo Chao MD Discharge Disposition: Home or Self Care (Routine Discharge) 12/10/2024 Travel 11/23/2024 6:32 PM CDT - 11/23/2024 9:26 PM CDT Emergency [facility] Emergency Room [address] [place] [id number] Yolie Simpson MD Flu Like Symptoms Discharge Disposition: Home or Self Care (Routine Discharge) 11/23/2024 Travel 11/21/2024 Results [facility] [address], [address] [place] [phone] Gildardo Chao MD IR LUMB PUNCTURE DIAGNOSTIC, CELL COUNT, CSF, GLUCOSE CSF, Additional followed-up results: 9 11/19/2024 8:27 AM CDT - 11/19/2024 3:30 PM CDT Hospital Encounter [facility] [address] Gildardo Chao MD Discharge Disposition: Home or Self Care (Routine Discharge) 11/19/2024 8:25 AM CDT Hospital Encounter [facility] [place] [address] Ramu Haro MD Discharge Disposition: Home or Self Care (Routine Discharge) 11/19/2024 Travel 11/17/2024 1:55 PM CDT - 11/17/2024 11:59 PM CDT Hospital Encounter [facility] Open MRI [address] [place] [address] Gildardo Chao MD Discharge Disposition: Home or Self Care (Routine Discharge) 11/17/2024 Travel 11/17/2024 Telephone [facility] - [place] [id number] [place] [address] Gildardo Chao MD Information; Callback 11/11/2024 Orders Only [facility] [place] [address] Ramu Haro MD 11/04/2024 Pre-Procedure Call [facility] [place] [address] Ramu Haro MD Preprocedure Call 11/03/2024 2:00 PM CDT Office Visit [facility] Care - [facility] [address], [address] [place] [address] Gildardo Chao MD Establish Care (Migraines) 11/03/2024 Travel from Last 3 Months Immunizations Immunization Administration Dates Next Due Dtap 01/25/2009, 2,03/04/2001,03/10/1998,0 01/12/1998 Hepatitis A (Generic) 01/25/2009 Hepatitis A Vaccine - 2 Dose 12/26/2011 Hepatitis B Pediatric 08/18/1998,1997,10/15 Hib (Generic) 01/12/1998 Hib (PedvaxHIB)3 Dose 03/10/1998 Hib-MenCY (MenHibrix) 01/12/1998 Influenza (Generic) 08/01/2013,08/13/2012 Influenza Adult (Generic) 04/03/2017,07/05/2016 Influenza Virus, Split 6-35 Mo 08/01/2013 MMR 02/23/2003,01/19/1999 Menactra 07/28/2014 Meningococcal 01/25/2009 Pneumococcal (Prevnar 7) 03/04/2001 Polio IPV (Ipol) 02/23/2003,03/04/2001, 8,01/12/1998 Polio Ipv (Generic) 02/23/2003,03/04/2001,1997,01/12/1998 Tdap (Adacel) 02/11/2020 Tdap (Generic) 11/16/2016,02/02/2013,01/25/2009 Varicella Vaccine 01/27/2009,06/02/1999 Family History Medical History Relation Comments None Brother None Father Hypertension Mother None Sister 1 None Sister 2 Pica Son 1 severe constipation Son 1 No Known Problems Son 2 Relation Status Comments Brother Alive Father Alive Mother Alive Sister 1 Alive Sister 2 Alive Son 1 Alive Son 2 Alive Social History Tobacco Use Types Packs/Day Years Used Date Smoking Tobacco: Never Smokeless Tobacco: Never Tobacco Cessation:Counseling Given: Not Answered Alcohol Use Standard Drinks/Week Comments Never 0 (1 standard drink = 0.6 oz pur e alcohol) AUDIT-C Answer Date Recorded Q1: How often do you have a drink containing alc ohol? Never 11/03/2020 Average Number of Drinks Not on file 021 Frequency of Binge Drinking Not on file 10/15 PHQ-2 Answer Date Recorded Patient Health Questionnaire-2 Score 0 11/03/2024 Comments No Sex and Gender Information Value Date Recorded Sex Assigned at Female 09/30/2024 1:32 PM CDT Legal Sex Female 7:07 PM CDT Gender Identity Not on file Sexual Orientation Not on file Occupation Industry Job Start Date Job End Date Not on file Not on file Not on file Not on file Last Filed Vital Signs Vital Sign Reading Time Taken Comments Blood Pressure 130/88 01/07/2025 9:30 PM CDT Pulse 68 01/07/2025 9:30 PM CDT Temperature 36.1 C (97 F) 01/07/2025 9:30 PM CDT Respiratory Rate 18 01/07/2025 9:30 PM CDT Oxygen Saturation 100% 01/07/2025 9:30 PM CDT Inhaled Oxygen Concentration - - Weight 81.6 kg (180 lb) 01/07/2025 7:38 PM CDT Height 165.1 cm (5' 5) 01/07/2025 7:38 PM CDT Body Mass Index 29.95 01/07/2025 7:38 PM CDT Plan of Treatment Upcoming Encounters Date Type Department Care Team (Late st Contact Info) Description 03/24/2025 8:40 AM CDT Office Visit [facility] [address], [address] [place] [address] Gildardo Chao MD [address] [place] [address] 03/30/2025 2:15 PM CDT Office Visit [facility] [address] [place] [address] Marquis Salmeron MD Three [facility]. [facility] [address] [place] [phone] 05/18/2025 1:20 PM PAPER CONE MAKER Office Visit [facility] [address], [address] [place] [address] Gildardo Chao MD [address] [place] [address] Health Maintenance Due Date Last Done Comments Annual Physical 2000 Hepatitis C 11/10/2015 Cervical Cancer Screening Pap Smear (Age 21 to 29) Every 3 Years 09/04/2022 09/04/2019 Cervical Cancer Screening 09/04/2022 COVID-19 Vaccine ( season) 2024 DTaP, Tdap and Td Vaccines (10 - Td or Tdap) 02/10/2030 02/11/2020, 11/16/2016, 02/02/2013, Additional history exists Hepatitis B Vaccines Completed 08/18/1998, 1997, 1997 Pneumococcal Vaccine: Pediatrics (0 to 5 Years) and At-Risk Patients (6 to 49 Years) Aged Out 03/04/2001 No longer eligible based on patient's age to complete this topic Meningococcal Vaccine Completed 07/28/2014, 009 PHQ-2 (Physician [place]) Completed 11/03/2024 HPV Vaccines Aged Out No longer eligi ble based on patient's age to complete this topic Meningococcal B Vaccine Aged Out No l onger eligible based on patient's age to complete this topic RSV Immunizations Under 20 Months Aged Out No longer eligible based on patient's age to complete this topic Medical Devices Implanted Type Area Veterinary Assistant Technician Device Identifier Shelf Expiration Date Model / Serial / Lot Implant System Internalbrace Ligament [employer] - [id number] Implanted:Qty: 1 on 02/28/2018 by Jermain Simeon MD at [facility] Left: Ankle [employer] 10/14/2019 [id number] / / [id number] Biocomposite Suture Hatch, Pushlock,Short Dx Implanted:Qty: 2 on 02/28/2018 by Jermain Simeon MD at [facility] Left: Ankle [employer] 06/14/2018 [id number] / / [id number] Procedures Procedure Name Priority Date/Time Associated Diagnosis Comments CK (CPK) STAT 01/07/2025 7:54 PM CDT COMPREHENSIVE METABOLIC PANEL STAT 01/07/2025 7:54 PM CDT CBC W/DIFF AUTOMATED STAT 01/07/2025 7:54 PM CDT MRI ORBITS WWO CON Routine 12/10/2024 12 :25 PM CDT Orbital mass MRI BRAIN WWO CON Routine 12/10/2024 12: 12 PM CDT Pseudotumor cerebri MRV HEAD WWO Routine 12/10/2024 12:06 PM CDT Dural venous sinus thrombosis (HHS/HCC) URINALYSIS, AUTO, COMPLETE STAT 11/23/2024 8:48 PM CDT CORONAVIRUS (COVID 19) STAT 7:00 PM CDT INFLUENZA A & B STAT 11/23/2024 7:00 PM CDT STREP A RAPID STAT 11/23/2024 7:00 PM CDT CHORIONIC GONADOTROPIN HCG QL Routine 11/23/2024 7:00 PM CDT CBC W/DIFF AUTOMATED STAT 11/23/2024 7:00 PM CDT BASIC METABOLIC PANEL STAT 11/23/2024 7:00 PM CDT IR LUMB PUNCTURE DIAGNOSTIC Routine 11/19/2024 10:58 AM CDT Pseudotumor cerebri OLIGOCLONAL BANDS *CSF AND SERUM REQUIRED* Routine 11/19/2024 10:47 AM CDT MS (multiple sclerosis) (CMS/HCC HHS/HCC) MYELIN BASIC PROTEIN, CSF Routine 11/19/2024 10:47 AM CDT MS (multiple sclerosis) (CMS/HCC HHS/HCC) PROTEIN TOTAL CSF Routine 11/19/2024 10: 47 AM CDT MS (multiple sclerosis) (CMS/HCC HHS/HCC) GLUCOSE CSF Routine 11/19/2024 10:47 AM CDT MS (multiple sclerosis) (CMS/HCC HHS/HCC) CELL COUNT, CSF Routine 11/19/2024 10:47 AM CDT MS (multiple sclerosis) (CMS/HCC HHS/HCC) IGG SYNTHESIS RATE *CSF AND SERUM REQUIRED* Routine 11/19/2024 10:47 AM CDT MS (multiple sclerosis) (CMS/HCC HHS/HCC) PLATELET COUNT, AUTO Routine 11/19/2024 8:31 AM CDT Pseudotumor PARTIAL THROMBOPLASTIN TIME,PTT Routine 11/19/2024 8:31 AM CDT Pseudotumor PROTHROMBIN TIME, VENOUS Routine 11/19/2024 8:31 AM CDT Pseudotumor MRI CERV SPINE WWO CON Routine 3:56 PM CDT MS (multiple sclerosis) (CMS/HCC HHS/HCC) MRI THOR SPINE WWO CON Routine 5 3:36 PM CDT MS (multiple sclerosis) (CMS/HCC HHS/HCC) OUTSIDE CYTOPATH CERV/VAG INTERPRET (PAP) (SCAN ORDER) 09/04/2019 from Last 3 Months or Most Recently Relevant to Health Maintenance Results * (ABNORMAL) COMPREHENSIVE METABOLIC PANEL (01/07/2025 7:54 PM CDT) GLUCOSE 91 70 - 99 MG/DL 01/07/2025 8:15 PM CDT [facility] BUN 5(L) 7 - 18 MG/DL 01/07/2025 8:15 PM CDT [facility] CREATININE S/P/B 0.72 0.55 - 1.02 MG/DL 01/07/2025 8:15 PM CDT [facility] SODIUM S/P/B 135(L) 136 - 145 MMOL/L 01/07/2025 8:15 PM CDT [facility] POTASSIUM S/P/B 3.7 3.5 - 5.1 MMOL/L 01/07/2025 8:15 PM CDT [facility] CHLORIDE S/P/B 102 100 - 108 MMOL/L 01/07/2025 8:15 PM [facility] CO2 23.1 21 - 32 MMOL/L 01/07/2025 8:15 PM [facility] CALCIUM S/P/B 8.8 8.5 - 10.1 MG/DL 01/07/2025 8:15 PM T [facility] BILIRUBIN TOTAL S/P/B 1.3(H) 0.2 - 1.2 MG/DL 01/07/2025 8:15 PM [facility] TOTAL PROTEIN S/P/B 7.0 6.4 - 8.2 G/DL 01/07/2025 8:15 PM [facility] ALBUMIN S/P/B 3.6 3.4 - 5.0 G/DL 01/07/2025 8:15 PM [facility] AST 31 15 - 37 U/L 01/07/2025 8:15 PM [facility] ALT 49 14 - 55 U/L 01/07/2025 8:15 PM [facility] ALKALINE PHOSPHATASE S/P/B 73 50 - 136 U/L 01/07/2025 8:15 PM [facility] ANION GAP 9.9 5 - 15 MMOL/L 01/07/2025 8:15 PM [facility] BUN CREATININE RATIO 6.9 6 - 26 01/07/2025 8:15 PM [facility] A/G RATIO 1.1 1.0 - 2.0 RATIO 01/07/2025 8:15 PM [facility] GFR ESTIMATE >90 >90 ML/MIN/1.7 3 M2 01/07/2025 8:15 PM [facility] Comment: NOTE: eGFR is not calculated for patients <18 years of age. This is an estimated GFR calculation using the new CKD EPI creatinine equation without race and so does not require a correction factor for race. This estimated GFR should not be used for calculating drug doses. 01/07/2025 7:54 PM CDT us Ced Douglas MD LABORATORY Final Resul t [facility] [address] [place] [address], [place] [phone] * (ABNORMAL) CBC W/DIFF AUTOMATED (01/07/2025 7:54 PM CDT) Only the most recent of2 resultswithin the time period is included. WBC 8.56 4.4 - 11.0 x10'3/uL 01/07/2025 8:02 PM CDT [facility] RBC 5.01 4.50 - 5.10 x10'6/uL 01/07/2025 8:02 PM CDT [facility] HGB 15.0 12.3 - 15.3 G/DL 01/07/2025 8:02 PM CDT [facility] HCT 42.8 35.9 - 44.6 % 01/07/2025 8:02 PM CDT [facility] MCV 85.4 80.0 - 96.0 FL 01/07/2025 8:02 PM CDT [facility] MCH 29.9 25.3 - 30.9 PG 01/07/2025 8:02 PM CDT [facility] MCHC 35.0(H) 31.0 - 34.1 G/DL 01/07/2025 8:02 PM CDT [facility] RDW 12.1(L) 12.4 - 15.1 % 01/07/2025 8:02 PM [facility] PLT 230 151 - 353 x10'3/uL 01/07/2025 8:02 PM [facility] MPV 9.2(L) 9.6 - 12.0 FL 01/07/2025 8:02 PM [facility] RBC MORPHOLOGY NORMAL 01/07/2025 8:02 PM [facility] PLT MORPH. NORMAL 01/07/2025 8:02 PM [facility] WBC MORPHOLOGY NORMAL 01/07/2025 8:02 PM [facility] LYMPHOCYTES % 22.2 15.8 - 45.0 % 01/07/2025 8:02 PM [facility] NEUTROPHILS % 71.9 42.1 - 71.9 % 01/07/2025 8:02 PM [facility] MONOCYTES % 4.7(L) 5.7 - 12.5 % 01/07/2025 8:02 PM [facility] EOSINOPHILS 0.9 0.0 - 5.6 % 01/07/2025 8:02 PM [facility] BASOPHILS 0.2 0.0 - 1.3 % 01/07/2025 8:02 PM [facility] ABS. NEUTROPHILS 6.15(H) 1.40 - 6.00 x10'3/uL 01/07/2025 8:02 PM [facility] IMMATURE GRANS % 0.1 0.0 - 0.5 % 01/07/2025 8:02 PM [facility] ABS. LYMPHOCYTES 1.90 0.80 - 4.70 x10'3/uL 01/07/2025 8:02 PM [facility] 01/07/2025 7:54 PM CDT us Ced Douglas MD LABORATORY Final Resul t Performing Organization Address City/[facility]/ZIP Co de Phone Number [facility] [address] [place] [address], [place] [phone] * CK (CPK) (01/07/2025 7:54 PM CDT) CPK 53 26 - 192 U/L 01/07/2025 8:15 PM CDT [facility] 01/07/2025 7:54 PM CDT us Ced Dougals MD LABORATORY Final Resul t Performing Organization Address [facility] de Phone Number [facility] [address] [place] [address], [place] [phone] * MRI ORBITS WWO CON (12/10/2024 12:25 PM CDT) Anatomical Region Laterality Modality Orbits Magnetic Resonan ce 12/14/2024 11:1 4 AM CDT Impressions 12/14/2024 11:17 AM CDT IMPRESSION: 1. Normal appearance of the brain and orbits. 2. Patent dural venous sinus system. Referred By: GILDARDO CHAO Interpreted By: Mike Aceves MD, 12/14/2024 11:14 AM Narrative 12/14/2024 11:17 AM CDT [address] [address] EXAMINATION: MRI BRAIN WWO CON, MRV HEAD WWO, MRI ORBITS WWO CON, 12/14/2024 11:14 AM TECHNIQUE: Multiplanar multisequence magnetic resonance images of the brain and orbits were obtained before and after the administration of 19 mL of Dotarem injected through the IV, without evidence of adverse reaction. Sagittal 2-D [id number] and postcontrast magnetic resonance images of the dural venous sinuses were obtained from magnetic resonance venography of the head. Maximum intensity projection images were generated. HISTORY: Headaches since May 2024, fall, bilateral visual loss COMPARISON: MRI brain 11/08/2022 FINDINGS: MRI BRAIN: There is no restricted diffusion to suggest an acute infarction. There is no hemorrhagic focus of susceptibility. Preserved de león-white matter differentiation. No abnormally enhancing intracranial parenchymal or mass. The sella, callosal, pineal, and craniovertebral junction regions appear within normal limits. There is no extra-axial fluid collection. The ventricles are normal in size. The basal cisterns appear normal. The proximal intracranial arterial flow voids have a normal appearance. Orbital contents appear normal. Paranasal sinuses and mastoid air cells are well-aerated. MRI ORBITS: Orbital globes appear normal. Extraocular muscles have a normal appearance. Optic nerves appear normal. No abnormal enhancement to the orbital soft tissues. Lacrimal glands appear normal. Cavernous sinuses have a normal appearance. MRV HEAD: Superior sagittal sinus is patent. Hypoplastic inferior sagittal sinus. The cerebral and basal veins of Alfredito are patent. Vein of Gaston and straight sinuses are patent. Transverse and sigmoid sinuses are patent. Procedure Note Mike Aceves MD - 12/14/[address] [address] EXAMINATION: MRI BRAIN WWO CON, MRV HEAD WWO, MRI ORBITS WWO CON, 511:14 AM TECHNIQUE: Multiplanar multisequence magnetic resonance images of thebrain and orbits were obtained before and after the administration of 19mL of Dotarem injected through the IV, without evidence of adversereaction. Sagittal 2-D [id number] and postcontrast magnetic resonanceimages of the dural venous sinuses were obtained from magnetic resonancevenography of the head. Maximum intensity projection images weregenerated. HISTORY: Headaches since May 2024, fall, bilateral visual loss COMPARISON: MRI brain 11/08/2022 FINDINGS: MRI BRAIN: There is no restricted diffusion to suggest an acuteinfarction. There is no hemorrhagic focus of susceptibility. Preservedgray-white matter differentiation. No abnormally enhancing intracranialparenchymal or mass. The sella, callosal, pineal, and craniovertebraljunction regions appear within normal limits. There is no extra-axial fluid collection. The ventricles are normal insize. The basal cisterns appear normal. The proximal intracranialarterial flow voids have a normal appearance. Orbital contents appearnormal. Paranasal sinuses and mastoid air cells are well-aerated. MRI ORBITS: Orbital globes appear normal. Extraocular muscles have anormal appearance. Optic nerves appear normal. No abnormal enhancementto the orbital soft tissues. Lacrimal glands appear normal. Cavernoussinuses have a normal appearance. MRV HEAD: Superior sagittal sinus is patent. Hypoplastic inferiorsagittal sinus. The cerebral and basal veins of Alfredito are patent.Vein of Gaston and straight sinuses are patent. Transverse and sigmoidsinuses are patent. IMPRESSION: 1. Normal appearance of the brain and orbits. 2. Patent dural venous sinus system. Referred By: GILDARDO CHAO Interpreted By: Mike Aceves MD, 12/14/2024 11:14 AM us Gildardo Chao MD MRI Final Res ult * MRI BRAIN WWO CON (12/10/2024 12:12 PM CDT) Anatomical Region Laterality Modality Head Magnetic Resonan ce 12/14/2024 11:1 4 AM CDT Impressions 12/14/2024 11:17 AM CDT IMPRESSION: 1. Normal appearance of the brain and orbits. 2. Patent dural venous sinus system. Referred By: GILDARDO CHAO Interpreted By: Mike Aceves MD, 12/14/2024 11:14 AM Narrative 12/14/2024 11:17 AM CDT [address] [address] EXAMINATION: MRI BRAIN WWO CON, MRV HEAD WWO, MRI ORBITS WWO CON, 12/14/2024 11:14 AM TECHNIQUE: Multiplanar multisequence magnetic resonance images of the brain and orbits were obtained before and after the administration of 19 mL of Dotarem injected through the IV, without evidence of adverse reaction. Sagittal 2-D [id number] and postcontrast magnetic resonance images of the dural venous sinuses were obtained from magnetic resonance venography of the head. Maximum intensity projection images were generated. HISTORY: Headaches since May 2024, fall, bilateral visual loss COMPARISON: MRI brain 11/08/2022 FINDINGS: MRI BRAIN: There is no restricted diffusion to suggest an acute infarction. There is no hemorrhagic focus of susceptibility. Preserved de león-white matter differentiation. No abnormally enhancing intracranial parenchymal or mass. The sella, callosal, pineal, and craniovertebral junction regions appear within normal limits. There is no extra-axial fluid collection. The ventricles are normal in size. The basal cisterns appear normal. The proximal intracranial arterial flow voids have a normal appearance. Orbital contents appear normal. Paranasal sinuses and mastoid air cells are well-aerated. MRI ORBITS: Orbital globes appear normal. Extraocular muscles have a normal appearance. Optic nerves appear normal. No abnormal enhancement to the orbital soft tissues. Lacrimal glands appear normal. Cavernous sinuses have a normal appearance. MRV HEAD: Superior sagittal sinus is patent. Hypoplastic inferior sagittal sinus. The cerebral and basal veins of Alfredito are patent. Vein of Gaston and straight sinuses are patent. Transverse and sigmoid sinuses are patent. Procedure Note Mike Aceves MD - 12/14/[address] [address] EXAMINATION: MRI BRAIN WWO CON, MRV HEAD WWO, MRI ORBITS WWO CON, 1:14 AM TECHNIQUE: Multiplanar multisequence magnetic resonance images of thebrain and orbits were obtained before and after the administration of 19mL of Dotarem injected through the IV, without evidence of adversereaction. Sagittal 2-D [id number] and postcontrast magnetic resonanceimages of the dural venous sinuses were obtained from magnetic resonancevenography of the head. Maximum intensity projection images weregenerated. HISTORY: Headaches since May 2024, fall, bilateral visual loss COMPARISON: MRI brain 11/08/2022 FINDINGS: MRI BRAIN: There is no restricted diffusion to suggest an acuteinfarction. There is no hemorrhagic focus of susceptibility. Preservedgray-white matter differentiation. No abnormally enhancing intracranialparenchymal or mass. The sella, callosal, pineal, and craniovertebraljunction regions appear within normal limits. There is no extra-axial fluid collection. The ventricles are normal insize. The basal cisterns appear normal. The proximal intracranialarterial flow voids have a normal appearance. Orbital contents appearnormal. Paranasal sinuses and mastoid air cells are well-aerated. MRI ORBITS: Orbital globes appear normal. Extraocular muscles have anormal appearance. Optic nerves appear normal. No abnormal enhancementto the orbital soft tissues. Lacrimal glands appear normal. Cavernoussinuses have a normal appearance. MRV HEAD: Superior sagittal sinus is patent. Hypoplastic inferiorsagittal sinus. The cerebral and basal veins of Alfredito are patent.Vein of Gaston and straight sinuses are patent. Transverse and sigmoidsinuses are patent. IMPRESSION: 1. Normal appearance of the brain and orbits. 2. Patent dural venous sinus system. Referred By: GILDARDO CHAO Interpreted By: Mike Aceves MD, 12/14/2024 11:14 AM Gildardo Chao MD MRI Final Res ult * MRV HEAD WWO (12/10/2024 12:06 PM CDT) Anatomical Region Laterality Modality Head Magnetic Resonan ce 12/14/2024 11:1 4 AM CDT Impressions 12/14/2024 11:17 AM CDT IMPRESSION: 1. Normal appearance of the brain and orbits. 2. Patent dural venous sinus system. Referred By: GILDARDO CHAO Interpreted By: Mike Aceves MD, 12/14/2024 11:14 AM Narrative 12/14/2024 11:17 AM CDT [id number] [place] [address] EXAMINATION: MRI BRAIN WWO CON, MRV HEAD WWO, MRI ORBITS WWO CON, 12/14/2024 11:14 AM TECHNIQUE: Multiplanar multisequence magnetic resonance images of the brain and orbits were obtained before and after the administration of 19 mL of Dotarem injected through the IV, without evidence of adverse reaction. Sagittal 2-D [id number] and postcontrast magnetic resonance images of the dural venous sinuses were obtained from magnetic resonance venography of the head. Maximum intensity projection images were generated. HISTORY: Headaches since May 2024, fall, bilateral visual loss COMPARISON: MRI brain 11/08/2022 FINDINGS: MRI BRAIN: There is no restricted diffusion to suggest an acute infarction. There is no hemorrhagic focus of susceptibility. Preserved de león-white matter differentiation. No abnormally enhancing intracranial parenchymal or mass. The sella, callosal, pineal, and craniovertebral junction regions appear within normal limits. There is no extra-axial fluid collection. The ventricles are normal in size. The basal cisterns appear normal. The proximal intracranial arterial flow voids have a normal appearance. Orbital contents appear normal. Paranasal sinuses and mastoid air cells are well-aerated. MRI ORBITS: Orbital globes appear normal. Extraocular muscles have a normal appearance. Optic nerves appear normal. No abnormal enhancement to the orbital soft tissues. Lacrimal glands appear normal. Cavernous sinuses have a normal appearance. MRV HEAD: Superior sagittal sinus is patent. Hypoplastic inferior sagittal sinus. The cerebral and basal veins of Alfredito are patent. Vein of Gaston and straight sinuses are patent. Transverse and sigmoid sinuses are patent. Procedure Note Mike Aceves MD - 12/14/2024 [id number] [place] [address] EXAMINATION: MRI BRAIN WWO CON, MRV HEAD WWO, MRI ORBITS WWO CON, 1:14 AM TECHNIQUE: Multiplanar multisequence magnetic resonance images of thebrain and orbits were obtained before and after the administration of 19mL of Dotarem injected through the IV, without evidence of adversereaction. Sagittal 2-D hbyy-ha-pxndax and postcontrast magnetic resonanceimages of the dural venous sinuses were obtained from magnetic resonancevenography of the head. Maximum intensity projection images weregenerated. HISTORY: Headaches since May 2024, fall, bilateral visual loss COMPARISON: MRI brain 11/08/2022 FINDINGS: MRI BRAIN: There is no restricted diffusion to suggest an acuteinfarction. There is no hemorrhagic focus of susceptibility. Preservedgray-white matter differentiation. No abnormally enhancing intracranialparenchymal or mass. The sella, callosal, pineal, and craniovertebraljunction regions appear within normal limits. There is no extra-axial fluid collection. The ventricles are normal insize. The basal cisterns appear normal. The proximal intracranialarterial flow voids have a normal appearance. Orbital contents appearnormal. Paranasal sinuses and mastoid air cells are well-aerated. MRI ORBITS: Orbital globes appear normal. Extraocular muscles have anormal appearance. Optic nerves appear normal. No abnormal enhancementto the orbital soft tissues. Lacrimal glands appear normal. Cavernoussinuses have a normal appearance. MRV HEAD: Superior sagittal sinus is patent. Hypoplastic inferiorsagittal sinus. The cerebral and basal veins of Alfredito are patent.Vein of Gaston and straight sinuses are patent. Transverse and sigmoidsinuses are patent. IMPRESSION: 1. Normal appearance of the brain and orbits. 2. Patent dural venous sinus system. Referred By: GILDARDO CHAO Interpreted By: Mike Aceves MD, 12/14/2024 11:14 AM Gildardo Chao MD MRI Final Res ult * (ABNORMAL) URINALYSIS, AUTO, COMPLETE (11/23/2024 8:48 PM CDT) COLOR (U) YELLOW 11/23/2024 9:08 PM CDT [facility] TRANSPARENCY CLEAR 11/23/2024 9:08 PM CDT [facility] SPECIFIC GRAVITY (U) <1.005 1.000 - 1.030 11/23/2024 9:08 PM CDT [facility] U PH 6.5 5.0 - 9.0 11/23/2024 9:08 PM CDT [facility] LEUKOCYTES (U) NEGATIVE NEGATIVE 11/23/2024 9:08 PM CDT [facility] NITRITES NEGATIVE NEGATIVE 11/23/2024 9:08 PM CDT [facility] PROTEIN RANDOM (U) NEGATIVE NEGATIVE 11/23/2024 9:08 PM CDT [facility] GLUCOSE (U) NEGATIVE NEGATIVE 11/23/2024 9:08 PM CDT [facility] KETONES MG/DL (U) 1+(A) NEGATIVE 11/23/2024 9:08 PM CDT [facility] BILIRUBIN (U) NEGATIVE NEGATIVE 11/23/2024 9:08 PM CDT [facility] BLOOD (U) NEGATIVE NEGATIVE 11/23/2024 9:08 PM CDT [facility] WBC/HPF NONE SEEN 0 - 5 /HPF 11/23/2024 9:08 PM CDT [facility] RBC/HPF NONE SEEN 0 - 5 /HPF 11/23/2024 9:08 PM CDT [facility] EPI/HPF RARE /HPF 11/23/2024 9:08 PM CDT [facility] URINE SPECIMEN OBTAINED BY CLEAN CATCH PROCEDURE / Unknown 11/23/2024 8:48 PM CDT us Grabiel Hanson MD URINE ORDERABLES Final Res ult [facility] [address] [place] [address], * CORONAVIRUS (COVID-19) MOLECULAR (11/23/2024 7:00 PM CDT) CORONAVIRUS SARS COV 2 RNA NEGATIVE NEGATIVE 11/23/2024 7:33 PM CDT [facility] Comment: NEGATIVE RESULTS DO NOT RULE OUT COVID 19 AND SHOULD NOT BE USED THE SOLE BASIS FOR TREATMENT OR PATIENT MANAGEMENT DECISIONS, INCLUDING INFECTION CONTROL DECISIONS. NEGATIVE RESULTS SHOULD BE CONSIDERED IN THE CONTEXT OF A PATIENT'S RECENT EXPOSURES, HISTORY AND THE PRESENCE OF CLINICAL SIGNS AND SYMPTOMS CONSISTENT WITH COVID 19. THE ID NOW COVID-19 2.0 TEST HAS BEEN AUTHORIZED BY THE FDA UNDER EAU FOR USE BY AUTHORIZED LABORATORIES. PERFORMED BY NUCLEIC ACID AMPLIFICATION FOR MOLECULAR QUALITATIVE DETECTION OF SARS-COV-2. SPECIMEN TYPE NASAL 11/23/2024 7:04 PM CDT [facility] NASOPHARYNGEAL SWAB / Unknown 11/23/2024 7:00 PM CDT Yolie Simpson MD MICROBIOLOGY - GENERAL ORDERA BLES Final Result Performing Organization Address City/[facility]/ZIP Co de Phone Number [facility] [address] [place] [address], [place] [phone] * INFLUENZA A & B (11/23/2024 7:00 PM CDT) Pathologist [facility] SPECIMEN TYPE NASOPHARYNX 11/23/2024 7:13 PM CDT [facility] INFLUENZA A NEGATIVE NEGATIVE 11/23/2024 7:34 PM CDT [facility] INFLUENZA B NEGATIVE NEGATIVE 11/23/2024 7:34 PM CDT [facility] NASAL NASOPHARYNGEAL SWAB / Unknown 11/23/2024 7:00 PM CDT Yolie Simpson MD MICROBIOLOGY - GENERAL ORDERA BLES Final Result [facility] [address] [place] [address], [place] [phone] * STREP A RAPID (11/23/2024 7:00 PM CDT) RAPID STREP TEST NEGATIVE NEGATIVE 11/23/2024 7:24 PM CDT [facility] STRUCTURE OF ANTERIOR PORTION OF NECK / Unknown 11/23/2024 7:00 PM CDT us Yolie Simpson MD MICROBIOLOGY - GENERAL ORDERA BLES Final Result [facility] [address] [place] [address], * (ABNORMAL) BASIC METABOLIC PANEL (11/23/2024 7:00 PM CDT) [facility] [address] GLUCOSE 109(H) 70 - 99 MG/DL 11/23/2024 7:26 PM CDT [facility] BUN 10 7 - 18 MG/DL 11/23/2024 7:26 PM CDT [facility] CREATININE S/P/B 1.06(H) 0.55 - 1.02 MG/DL 11/23/2024 7:26 PM CDT [facility] SODIUM S/P/B 135(L) 136 - 145 MMOL/L 11/23/2024 7:26 PM CDT [facility] POTASSIUM S/P/B 3.8 3.5 - 5.1 MMOL/L 11/23/2024 7:26 PM CDT [facility] CHLORIDE S/P/B 99(L) 100 - 108 MMOL/L 11/23/2024 7:26 PM CDT [facility] CO2 26.6 21 - 32 MMOL/L 11/23/2024 7:26 PM T [facility] CALCIUM S/P/B 9.6 8.5 - 10.1 MG/DL 11/23/2024 7:26 PM CDT [facility] ANION GAP 9.4 5 - 15 MMOL/L 11/23/2024 7:26 PM CDT [facility] BUN CREATININE RATIO 9.4 6 - 11/23/2024 7:26 PM CDT [facility] GFR ESTIMATE 74(L) >90 ML/MIN/1.7 3 M2 11/23/2024 7:26 PM CDT [facility] Comment: NOTE: eGFR is not calculated for patients <18 years of age. This is an estimated GFR calculation using the new CKD EPI creatinine equation without race and so does not require a correction factor for race. This estimated GFR should not be used for calculating drug doses. 11/23/2024 7:00 PM CDT us Yolie Simpson MD LABORATORY Final Result Performing Organization Address [facility] Co de Phone Number [facility] [address] [place] [address], [place] [phone] * CHORIONIC GONADOTROPIN HCG QL (11/23/2024 7:00 PM CDT) PREG SCREEN-SERUM NEGATIVE NEGATIVE 11/23/2024 7:40 PM CDT [facility] 11/23/2024 7:00 PM CDT Yolie Simpson MD LABORATORY Final Result Performing Organization Address [facility] Co de Phone Number [facility] [address] [place] [address], [place] [phone] * IR LUMB PUNCTURE DIAGNOSTIC (11/19/2024 10:58 AM CDT) Anatomical Region Laterality Modality Spine Interventional R adiology, Radiographic Imaging, Radiographic Imaging 11/19/2024 10:4 4 AM CDT Impressions 11/19/2024 11:24 AM CDT IMPRESSION: 1. Fluoroscopy guided lumbar puncture performed at the L2-3 level. 2. Opening CSF pressure of 18 cm H2O measured. 3. Total 15 mL of CSF fluid collected and sent for testing. 4. No immediate complication Ordered By: GILDARDO CHAO Interpreted By: Ramu Haro MD, 11/19/2024 10:44 AM Narrative 11/19/2024 11:24 AM CDT [address] [address] Procedure: IR Lumbar puncture diagnostic with imaging Exam Date/Time: 11/19/2024 8:26 AM Indication: 29 female presenting for image, puncture for pressure measurement and fluid collection for analysis. Pseudotumor Comparison: Lumbar spine radiographs 03/19/2024, Procedure technique and findings: Informed verbal and written consent was obtained with patient/patient's medical power of administrative technician. The procedure was discussed including the rationale, alternatives, benefits and risks. Timeout was performed Patient was positioned prone on the fluoroscopy procedure table. The L2-3 interlaminar space was localized with fluoroscopy. Sterile technique including hand wash with soap and water, was employed for the procedure. The skin was prepped and draped. 1% lidocaine was administered for local anesthesia. A 22 gauge Richard spinal needle was then advanced under fluoroscopic guidance into the thecal sac. Clear CSF fluid was returned. An opening CSF pressure of 18 cm H2O was measured. A total of 15 mL clear cerebrospinal fluid was collected and distributed amongst 4 vials. No closing CSF pressure measured. The stylet was replaced and the needle removed. Patient remained asymptomatic and tolerated the procedure well. No immediate complication. Leather Tacker: Dr. Haro Radiation dose Air Kerma: 9.9 mGy; 2 fluoroscopy images recorded Procedure Note Ramu Haro MD - 11/19/[address] [address] Procedure: IR Lumbar puncture diagnostic with imaging Exam Date/Time: 11/19/2024 8:26 AM Indication: 29 female presenting for image, puncture for pressuremeasurement and fluid collection for analysis. Pseudotumor Comparison: Lumbar spine radiographs 03/19/2024, Procedure technique and findings: Informed verbal and written consent was obtained with patient/patient'smedical power of administrative technician. The procedure was discussed including therationale, alternatives, benefits and risks. Timeout was performed Patient was positioned prone on the fluoroscopy procedure table. The L2- 3interlaminar space was localized with fluoroscopy. Sterile technique including hand wash with soap and water, was employedfor the procedure. The skin was prepped and draped. 1% lidocaine wasadministered for local anesthesia. A 22 gauge Richard spinal needle wasthen advanced under fluoroscopic guidance into the thecal sac. Clear CSFfluid was returned. An opening CSF pressure of 18 cm H2O was measured. A total of 15 mL clear cerebrospinal fluid was collected and distributedamongst 4 vials. No closing CSF pressure measured. The stylet was replaced and the needleremoved. Patient remained asymptomatic and tolerated the procedure well. Noimmediate complication. Leather Tacker: Dr. Haro Radiation dose Air Kerma: 9.9 mGy; 2 fluoroscopy images recorded IMPRESSION: 1. Fluoroscopy guided lumbar puncture performed at the L2-3 level. 2. Opening CSF pressure of 18 cm H2O measured. 3. Total 15 mL of CSF fluid collected and sent for testing. 4. No immediate complication Ordered By: GILDARDO CHAO Interpreted By: Ramu Haro MD, 11/19/2024 10:44 AM Gildardo Chao MD INTERVENTIONAL RADIOLOGY Final Result * CELL COUNT, CSF (11/19/2024 10:47 AM CDT) TUBE NUMBER 3 11/19/2024 12:24 PM CDT [facility] TOTAL VOLUME (CSF) 15.25 ML 11/19/2024 12:24 PM CDT [facility] COLOR (CSF) COLORLESS 11/19/2024 12:24 PM CDT [facility] CLARITY (CSF) CLEAR 11/19/2024 12:24 PM CDT [facility] RBC (CSF) 0 CELLS/UL 11/19/2024 12:24 PM CDT [facility] TOTAL NUCLEATED CELL (CSF) 2 0 - 5 CELLS/UL 11/19/2024 12:24 PM CDT [facility] LYMPHS (CSF) 71 % 11/19/2024 12:24 PM CDT [facility] OTHER MONONUCLEAR CELLS (CSF) 29 % 11/19/2024 12:24 PM CDT [facility] Comment: THE FOLLOWING MAY INCLUDE MONOCYTE/MACROPHAGE,PLASMA CELL,MESOTHELIAL CELL,BRONCHIAL LINING CELL,SYNOVIAL LINING CELL,VENTRICULAR LINING CELL,ENDOTHELIAL CELL,SQUAMOUS EPITHELIAL AND OTHER CELLS. CSF, LUMBAR 11/19/2024 10:4 7 AM CDT Gildardo Chao MD BODY FLUIDS AND STOOLS OR DERABLES Final Result [facility] [address] [place] [address], [place] [phone] * GLUCOSE CSF (11/19/2024 10:47 AM CDT) GLUCOSE (CSF) 53 40 - 70 MG/DL 11/19/2024 11:42 AM CDT [facility] CSF, LUMBAR 11/19/2024 10:4 7 AM CDT us Gildardo Chao MD BODY FLUIDS AND STOOLS OR DERABLES Final Result [facility] [address] [place] [address], [place] [phone] * (ABNORMAL) PROTEIN TOTAL CSF (11/19/2024 10:47 AM CDT) TOTAL PROTEIN (CSF) 55(H) 15 - 45 MG/DL 11/19/2024 11:42 AM CDT [facility] CSF, LUMBAR 11/19/2024 10:4 7 AM CDT Gildardo Chao MD BODY FLUIDS AND STOOLS OR DERABLES Final Result [facility] [address] [place] [address], [place] [phone] * IGG SYNTHESIS RATE *CSF AND SERUM REQUIRED* (11/19/2024 10:47 AM CDT) CSF IGG SYNTH RATE minus4.4 minus9.9- 3.3 mg/24 h 11/23/2024 1:29 AM CDT [employer] [facility] IGG INDEX (CSF) 0.46 <0.70 1:29 AM CDT [facility] QU[facility]LEYY Comment: The IgG Synthesis rate, CSF and IgG index, CSF are two formulae for estimating the amount of IgG produced in the central nervous system. Evidence of increased synthesis of IgG provides support for the diagnosis of multiple sclerosis. ALBUMIN (CSF) 18.1 8.0 - 42.0 mg/dL 11/23/2024 1:29 AM CDT [facility]ECKER IGG (CSF) 2.2 0.8 - 7.7 mg/dL 11/23/2024 1:29 AM CDT [facility] QUIGLEYY IMMUNOGLOBULIN G 1,230 600 - 1,640 mg/dL 11/23/2024 1:29 AM CDT [facility] ALBUMIN S/P/B 4.7 3.6 - 5.1 g/dL 11/23/2024 1:29 AM CDT [facility] Comment: Test Performed by [facility], Cynthia [address] [facility], [address] [place], [place] Tristan Singleton M.D., Ph.D., Director of Laboratories , CLIA [id number] CSF & SERUM 11/19/2024 10:4 7 AM CDT us Gildardo Chao MD LABORATORY Final Res ult Performing Organization Address City/[facility]/ZIP Co de Phone Number [facility] [address] [place], [place] , * OLIGOCLONAL BANDS *CSF AND SERUM REQUIRED* (11/19/2024 10:47 AM CDT) OLIGOCLONAL BANDS Absent Absent 025 9:43 AM CDT [facility] Comment: No Oligoclonal bands are identified in the patient's CSF when compared to the corresponding serum sample. Oligoclonal bands are present in the CSF of more than 85% of patients with clinically definite multiple sclerosis (MS). To distinguish between oligoclonal bands in the CSF due to a peripheral gammopathy and oligoclonal bands due to local production in the WOOD PLANER, serum and CSF should be tested simultaneously. Oligoclonal bands can however be observed in a variety of other diseases, e.g., subacute sclerosing panen- cephalitis, inflammatory polyneuropathy, WOOD PLANER lupus, and brain tumors and infarctions. The clinical significance of a numerical band count, determined by isoelectric focusing, has not been definitively defined. The data should be interpreted in conjunction with all pertinent clinical and laboratory data for this patient. Test Performed by [employer], [employer] [place], [address] [place], [place] Tristan Singleton M.D., Ph.D., Director of Laboratories , CLIA [id number] CSF & SERUM 11/19/2024 10:4 7 AM CDT us Gildardo Chao MD BODY FLUIDS AND STOOLS OR DERABLES Final Result Performing Organization Address [facility]/ZIP Co de Phone Number [facility] [address] [place], [place] , * MYELIN BASIC PROTEIN, CSF (11/19/2024 10:47 AM CDT) MYELIN BASIC PROTEIN (CSF) <2.0 <=4.0 mcg/L 11/25/2024 2:47 PM CDT [employer]HS[facility]LLO Comment: Result Interpretation < or= 4.0 mcg/L Negative 4.1-6.0 mcg/L Weakly Positive >6.0 mcg/L Positive This test was developed and its analytical performance characteristics have been determined by [employer] [place], [place]. It has not been cleared or approved by the U.S. Food and Drug Administration. This assay has been validated pursuant to the CLIA regulations and is used for clinical purposes. Test Performed by [facility], [employer] [facility], [address] [place] [address] Tristan Singleton M.D., Ph.D., Director of Laboratories , CLIA [id number] CSF, LUMBAR 11/19/2024 10:4 7 AM CDT Gildardo Chao MD BODY FLUIDS AND STOOLS OR DERABLES Final Result Performing Organization Address City/[facility]/ZIP Co de Phone Number [facility] [address] [place], [place] , * PLATELET COUNT, AUTO (11/19/2024 8:31 AM CDT) PLT 254 130 - 400 x10'3/uL 11/19/2024 8:41 AM CDT [facility] MPV 9.6 9.3 - 12.2 FL 11/19/2024 8:41 AM CDT [facility] 11/19/2024 8:31 AM CDT us Ramu Haro MD LABORATORY Final Result Performing Organization Address City/[facility]/ZIP Co de Phone Number [facility] [address] [place] [address], [place] [phone] * PTT, PARTIAL THROMBOPLASTIN TIME (11/19/2024 8:31 AM CDT) PTT 32.2 25.1 - 36.5 SEC 11/19/2024 8:59 AM CDT [facility] 11/19/2024 8:31 AM CDT us Ramu Haro MD LABORATORY Final Result Performing Organization Address [facility] Co de Phone Number [facility] [address] [place] [address], [place] [phone] * PROTIME/INR, VENOUS (11/19/2024 8:31 AM CDT) PROTIME 11.8 10.2 - 12.9 SEC 11/19/2024 8:59 AM CDT [facility] INR 1.0 11/19/2024 8:59 AM CDT [facility] Comment: Recommended INR Therapeutic Goals: 2.0-3.0 Routine Therapy 2.5-3.5 Mechanical Prosthetic Valves (High Risk) 11/19/2024 8:31 AM CDT us Ramu Haro MD LABORATORY Final Result Performing Organization Address City/[facility] Co de Phone Number [facility] [address] [place] [address], [place] [phone] * MRI CERV SPINE WWO CON (11/17/2024 3:56 PM CDT) Anatomical Region Laterality Modality Spine Magnetic Resonan ce 11/22/2024 11:0 9 AM CDT Impressions 11/22/2024 11:21 AM CDT IMPRESSION: No significant abnormality identified. Ordered By: GILDARDO CHAO Interpreted By: Byron Gray MD, 11/22/2024 11:09 AM Narrative 11/22/2024 11:21 AM CDT [address] [address] Examination: MRI CERV SPINE WWO CON, MRI THOR SPINE WWO CON Exam time: 11/17/2024 3:05 PM Clinical history: Headaches. History of fall. Evaluate for MS. Comparison: No prior exam Technique: Sagittal T1, T2, and STIR images were obtained throughout the cervical and thoracic spine. Sagittal gradient echo sequence performed in the cervical spine as well as oblique sagittal T2 images throughout cervical spine. Axial T1 and T2 images were performed throughout the cervical and thoracic spine. Following intravenous injection of 19 mL Dotarem gadolinium contrast material postcontrast axial and sagittal T1 sequences were obtained throughout the cervical and thoracic spine. Findings: There is no evidence of malalignment of the cervical or thoracic spine. There are small rounded areas of increased T1 and T2 signal intensity within the T5 and T7 vertebra slightly to the right of midline consistent with small vertebral body hemangiomas. There is no evidence of loss of height of the intervertebral disc or extraosseous extension. There is no evidence of epidural collections in the cervical or thoracic spine. No evidence of compression of the cervical or thoracic thecal sac. The intervertebral disc at each level throughout the cervical and thoracic spine appear normal. The cervical and thoracic nerve roots and neural foramen appear normal. The cervical and thoracic spinal cord is normal in size and appearance. The conus medullaris tapers to a tip with the distal tip at the L1 level. There is no evidence of abnormal enhancement throughout the cervical or thoracic spinal cord. No evidence of abnormal epidural or intradural extra medullary enhancement. Signal intensity of the subcutaneous tissues and paraspinal muscle is normal. There are Schmorl's nodes visualized involving the vertebral body endplates at the T11-12 and T12-L1 levels consistent with developmental variation. Procedure Note Byron Gray MD - 11/22/2024 [id number] [place] [address] Examination: MRI CERV SPINE WWO CON, MRI THOR SPINE WWO CON Exam time: 11/17/2024 3:05 PM Clinical history: Headaches. History of fall. Evaluate for MS. Comparison: No prior exam Technique: Sagittal T1, T2, and STIR images were obtained throughout thecervical and thoracic spine. Sagittal gradient echo sequence performed inthe cervical spine as well as oblique sagittal T2 images throughoutcervical spine. Axial T1 and T2 images were performed throughout thecervical and thoracic spine. Following intravenous injection of 19 mLDotarem gadolinium contrast material postcontrast axial and sagittal [id number] were obtained throughout the cervical and thoracic spine. Findings: There is no evidence of malalignment of the cervical or thoracicspine. There are small rounded areas of increased T1 and T2 signalintensity within the T5 and T7 vertebra slightly to the right of midlineconsistent with small vertebral body hemangiomas. There is no evidence ofloss of height of the intervertebral disc or extraosseous extension. There is no evidence of epidural collections in the cervical or thoracicspine. No evidence of compression of the cervical or thoracic thecal sac.The intervertebral disc at each level throughout the cervical and thoracicspine appear normal. The cervical and thoracic nerve roots and neuralforamen appear normal. The cervical and thoracic spinal cord is normal in size and appearance.The conus medullaris tapers to a tip with the distal tip at the [id number]. There is no evidence of abnormal enhancement throughout the cervical orthoracic spinal cord. No evidence of abnormal epidural or intradural extramedullary enhancement. Signal intensity of the subcutaneous tissues and paraspinal muscle isnormal. There are Schmorl's nodes visualized involving the vertebral bodyendplates at the T11-12 and T12-L1 levels consistent with developmentalvariation. IMPRESSION: No significant abnormality identified. Ordered By: GILDARDO CHAO Interpreted By: Byron Gray MD, 11/22/2024 11:09 AM us Gildardo Chao MD MRI Final Res ult * MRI THOR SPINE WWO CON (11/17/2024 3:36 PM CDT) Anatomical Region Laterality Modality Spine Magnetic Resonan ce 11/22/2024 11:0 9 AM CDT Impressions 11/22/2024 11:21 AM CDT IMPRESSION: No significant abnormality identified. Ordered By: GILDARDO CHAO Interpreted By: Byron Gray MD, 11/22/2024 11:09 AM Narrative 11/22/2024 11:21 AM CDT [address] [address] Examination: MRI CERV SPINE WWO CON, MRI THOR SPINE WWO CON Exam time: 11/17/2024 3:05 PM Clinical history: Headaches. History of fall. Evaluate for MS. Comparison: No prior exam Technique: Sagittal T1, T2, and STIR images were obtained throughout the cervical and thoracic spine. Sagittal gradient echo sequence performed in the cervical spine as well as oblique sagittal T2 images throughout cervical spine. Axial T1 and T2 images were performed throughout the cervical and thoracic spine. Following intravenous injection of 19 mL Dotarem gadolinium contrast material postcontrast axial and sagittal T1 sequences were obtained throughout the cervical and thoracic spine. Findings: There is no evidence of malalignment of the cervical or thoracic spine. There are small rounded areas of increased T1 and T2 signal intensity within the T5 and T7 vertebra slightly to the right of midline consistent with small vertebral body hemangiomas. There is no evidence of loss of height of the intervertebral disc or extraosseous extension. There is no evidence of epidural collections in the cervical or thoracic spine. No evidence of compression of the cervical or thoracic thecal sac. The intervertebral disc at each level throughout the cervical and thoracic spine appear normal. The cervical and thoracic nerve roots and neural foramen appear normal. The cervical and thoracic spinal cord is normal in size and appearance. The conus medullaris tapers to a tip with the distal tip at the L1 level. There is no evidence of abnormal enhancement throughout the cervical or thoracic spinal cord. No evidence of abnormal epidural or intradural extra medullary enhancement. Signal intensity of the subcutaneous tissues and paraspinal muscle is normal. There are Schmorl's nodes visualized involving the vertebral body endplates at the T11-12 and T12-L1 levels consistent with developmental variation. Procedure Note Byron Gray MD - 11/22/[address] [address] Examination: MRI CERV SPINE WWO CON, MRI THOR SPINE WWO CON Exam time: 11/17/2024 3:05 PM Clinical history: Headaches. History of fall. Evaluate for MS. Comparison: No prior exam Technique: Sagittal T1, T2, and STIR images were obtained throughout thecervical and thoracic spine. Sagittal gradient echo sequence performed inthe cervical spine as well as oblique sagittal T2 images throughoutcervical spine. Axial T1 and T2 images were performed throughout thecervical and thoracic spine. Following intravenous injection of 19 mLDotarem gadolinium contrast material postcontrast axial and sagittal [id number] were obtained throughout the cervical and thoracic spine. Findings: There is no evidence of malalignment of the cervical or thoracicspine. There are small rounded areas of increased T1 and T2 signalintensity within the T5 and T7 vertebra slightly to the right of midlineconsistent with small vertebral body hemangiomas. There is no evidence ofloss of height of the intervertebral disc or extraosseous extension. There is no evidence of epidural collections in the cervical or thoracicspine. No evidence of compression of the cervical or thoracic thecal sac.The intervertebral disc at each level throughout the cervical and thoracicspine appear normal. The cervical and thoracic nerve roots and neuralforamen appear normal. The cervical and thoracic spinal cord is normal in size and appearance.The conus medullaris tapers to a tip with the distal tip at the [id number]. There is no evidence of abnormal enhancement throughout the cervical orthoracic spinal cord. No evidence of abnormal epidural or intradural extramedullary enhancement. Signal intensity of the subcutaneous tissues and paraspinal muscle isnormal. There are Schmorl's nodes visualized involving the vertebral bodyendplates at the T11-12 and T12-L1 levels consistent with developmentalvariation. IMPRESSION: No significant abnormality identified. Ordered By: GILDARDO CHAO Interpreted By: Byron Gray MD, 11/22/2024 11:09 AM us Gildardo Chao MD MRI Final Res ult * PAP SMEAR (09/04/2019) 09/04/2019 Narrative 09/04/2019 Ordered by an unspecified provider. us Documents Scanned SCANNING Final Result from Last 3 Months or Most Recently Relevant to Health Maintenance Insurance FRANCIS Advance Directives * Full Code (Latest Code Status on File) Date Activated Date Inactivated Comments 04/08/2020 2:09 PM 04/11/2020 12:11 AM * Full Code Date Activated Date Inactivated Comments 04/01/2020 2:08 PM 04/01/2020 5:39 PM * Full Code Date Activated Date Inactivated Comments 03/01/2020 3:01 PM 03/01/2020 5:35 PM Care Teams Client Service Manager Relationship Specialty Start Date End Date Elin Chau NP [address] [place] [phone] PCP - General NURSE PRACTITIONER 03/19/24
--- OUTSIDE RECORDS SUMMARY | 2025-01-30 13:42 | XMS_ITS | Encounter Summary ---
Author Organization [facility] Address [facility] [place] [address] Care Team Providers Care Cell Tower Climber Name Role Phone Airam Daniel NP Primary Care Provider Unav ailable Won Faustin MD Primary Care Provider [phone] Elin Chau NP Primary Care Provider [phone] Encounter Details Date Type Department Care Team (Late st Contact Info) Description 11/24/2020 Luvocracyt Message Enc [facility] Medical [facility] Family & Internal Medicine [address] [address] Airam Daniel NP RE: Medication Questions Social History Tobacco Use Types Packs/Day Years Used Date Smoking Tobacco: Never Smokeless Tobacco: Never Alcohol Use Standard Drinks/Week Comments Never 0 (1 standard drink = 0.6 oz pur e alcohol) AUDIT-C Answer Date Recorded Q1: How often do you have a drink containing alc ohol? Never 11/03/2020 Average Number of Drinks Not on file 021 Frequency of Binge Drinking Not on file 10/15 PHQ-2 Answer Date Recorded PHQ-2 Score - If the patient scores above 3, please move on to questions 3-9 0 08/04/2020 Comments No Sex and Gender Information Value [...] have Coronavirus / COVID-19? No / Unsure 11/03/2020 1:00 PM CDT documented as of this encounter Functional Status * RETIRED Are you deaf or do you have serious difficulty hearing Answer Date of Assessment Author Status No 04/08/2020 11:13 AM CDT Acti ve * RETIRED Are you blind or do you have serious difficulty seeing, even when wearing glasses? Answer Date of Assessment Author Status No 04/08/2020 11:13 AM CDT Acti ve * Do you have serious difficulty walking or climbing stairs? Answer Date of Assessment Author Status No 04/08/2020 11:13 AM CDT Barbara Alcocer RN Active * Do you have difficulty dressing or bathing? Answer Date of Assessment Author Status No 04/08/2020 11:13 AM CDT Barbara Alcocer RN Active * Because of a physical, mental, or emotional condition, do you have difficulty doing errands alone such as visiting a doctor's office or shopping? Answer Date of Assessment Author Status No 04/08/2020 11:13 AM VICENTET Barbara Alcocer RN Active documented as of this encounter Mental Status * Because of a physical, mental, or emotional condition, do you have serious difficulty concentrating, remembering, or making decisions? Answer Entry Date Author Status No 04/08/2020 11:13 AM VICENTET Barbara Alcocer RN Active documented in this encounter Plan of Treatment Upcoming Encounters Date Type Department Care Team (Late st Contact Info) Description 03/24/2025 8:40 AM CDT Office Visit [facility] Medical [facility] Multispecialty Care - [facility] [address] [facility], [address] [place] [phone] Gildardo Chao MD [address] [place] [address] 03/30/2025 2:15 PM CDT [facility] [address] [place] [address] Marquis Salmeron MD Three [facility]. [address] [place] [address] 05/18/2025 1:20 PM SCRAPER BURRER Office Visit [facility] Multispecialty Care - [facility] [address] [facility], [address] [place] [address] Gildardo Chao MD [address] [place] [address] documented as of this encounter Visit Diagnoses Not on filedocumented in this encounter Additional Health Concerns Infection Onset Date Last Indicated Resolved Time COVID-19 Rule Out 06/07/2021 06/07/2021 06/07/2021 11:27 AM SCRAPER BURRER COVID-19 Confirmed 06/07/2021 06/07/2021 12:32 AM SCRAPER BURRER COVID-19 Rule Out 08/07/2023 08/07/2023 08/07/2023 9:37 AM SCRAPER BURRER Influenza - Seasonal 08/07/2023 08/07/2023 024 12:33 AM SCRAPER BURRER COVID-19 Rule Out 08/07/2023 08/07/2023 08/07/2023 12:46 PM SCRAPER BURRER Respiratory Rule Out 11/23/2024 11/23/2024 025 7:34 PM CDT COVID-19 Rule Out 11/23/2024 11/23/2024 11/23/2024 7:33 PM CDT documented as of this encounter Care Teams Cell Tower Climber Relationship Specialty Start Date End Date Airma Daniel NP PCP - General NURSE PRACTITIONER 03/19/20 05/16/21 [place] [address] [place] [address] PCP - General FAMILY PRACTICE 05/17/21 03/18/24 Elin Chau NP [address] [place] [address] PCP - General NURSE PRACTITIONER 03/19/24 documented as of this encounter
--- OUTSIDE RECORDS SUMMARY | 2025-01-30 13:42 | XMS_ITS | Encounter Summary ---
Author Organization [facility] Address [facility] [place] [address] Care Team Providers Care Car Usher Name Role Phone Airam Daniel NP Primary Care Provider Unav ailable Won Faustin MD Primary Care Provider [phone] Elin Chau NP Primary Care Provider [phone] Encounter Details Date Type Department Care Team (Late st Contact Info) Description 01/21/2021 Trail[place]ingt Message Enc [facility] Medical Group Family & Internal Medicine [address] [address] Airam Daniel NP RE: Question Social History Tobacco Use Types Packs/Day Years [...] have Coronavirus / COVID-19? No / Unsure 01/14/2021 10:11 AM CDT documented as of this encounter Functional [...] 11:13 AM CDT Barbara Alcocer RN Active documented as of this encounter Mental Status * Because of a physical, mental, or emotional condition, do you have serious difficulty concentrating, remembering, or making decisions? Answer Entry Date Author Status No 04/08/2020 11:13 AM VICENTET Barbara Alcocer RN Active documented in this encounter Progress Notes * Melinda Bailon RN - 01/21/2021 4:57 PM CDT Please advise. Do you want to see patient or was the 12/01/20 just having her check in? documented in this encounter Plan of Treatment Upcoming Encounters Date Type Department Care Team (Late st Contact Info) Description 03/24/2025 8:40 AM CDT Office Visit [facility] Medical Group Multispecialty Care - [address], [address] [place] [address] Gildardo Chao MD [address] [place] [address] 03/30/2025 2:15 PM CDT [facility] [address] [facility] [place] [address] Marquis Salmeron MD [address] [facility]. [address] [place] [address] 05/18/2025 1:20 PM SUBSTANCE ABUSE RN Office Visit [facility] Medical Group Multispecialty Care - [facility] [address] [facility], [address] [place] [address] Gildardo Chao MD [address] [place] [address] documented as of this encounter Visit Diagnoses Not on filedocumented in this encounter Additional Health Concerns Infection Onset Date Last Indicated Resolved Time COVID-19 Rule Out 06/07/2021 06/07/2021 06/07/2021 11:27 AM SUBSTANCE ABUSE RN COVID-19 Confirmed 06/07/2021 06/07/2021 12:32 AM SUBSTANCE ABUSE RN COVID-19 Rule Out 08/07/2023 08/07/2023 08/07/2023 9:37 AM SUBSTANCE ABUSE RN Influenza - Seasonal 08/07/2023 08/07/2023 024 12:33 AM SUBSTANCE ABUSE RN COVID-19 Rule Out 08/07/2023 08/07/2023 08/07/2023 12:46 PM SUBSTANCE ABUSE RN Respiratory Rule Out 11/23/2024 11/23/2024 025 7:34 PM CDT COVID-19 Rule Out 11/23/2024 11/23/2024 11/23/2024 7:33 PM CDT documented as of this encounter Care Teams Car Usher Relationship Specialty Start Date End Date Airam Daniel NP PCP - General NURSE PRACTITIONER 03/19/20 05/16/21 [place] [address] [place] [address] PCP - General FAMILY PRACTICE 05/17/21 03/18/24 Elin Chau NP [address] [place] [phone] PCP - General NURSE PRACTITIONER 03/19/24 documented as of this encounter
--- OUTSIDE RECORDS SUMMARY | 2025-01-30 13:42 | XMS_ITS | Encounter Summary ---
Author Organization [facility] Address [address] [place] [address] Care Team Providers Care Canceling And Cutting Control Clerk Name Role Phone Won Faustin MD Primary Care Provider [phone] Elin Chau NP Primary Care Provider [phone] Encounter Details Date Type Department Care Team (Late st Contact Info) Description 08/12/2021 Therapy Plan [facility] [address] [place], [place] [id number] Ivone Lowery MD [address] [place], [place] [phone] Social History Tobacco Use Types Packs/Day Years [...] have Coronavirus / COVID-19? No / Unsure 08/12/2021 2:05 PM COMMUNITY BOARD MEMBER documented as of this encounter Functional Status [...] 11:13 AM VICENTET Barbara Alcocer RN Active * Do you have difficulty dressing or bathing? Answer Date of Assessment Author Status No 04/08/2020 11:13 AM VICENTET Barbara Alcocer RN Active * Because of [...] Date Author Status No 04/08/2020 11:13 AM Barbara Hancock RN Active documented in this encounter Plan of Treatment Upcoming Encounters Date Type Department Care Team (Late st Contact Info) Description 03/24/2025 8:40 AM CDT Office Visit [facility] Medical Group Multispecialty Care - [facility] [address] [facility], [address] [place] [phone] Gildardo Chao MD [address] [place] [address] 03/30/2025 2:15 PM CDT [facility] [address] [place] [address] Marquis Salmeron MD Three [facility]. [address] [place] [address] 05/18/2025 1:20 PM COMMUNITY BOARD MEMBER Office Visit [facility] Medical Group Multispecialty Care - [facility] [address] [facility], [address] [place] [phone] Gildardo Caho MD [address] [place] [address] documented as of this encounter Visit Diagnoses Diagnosis Pelvic pain- Primary documented in this encounter Additional Health Concerns Infection Onset Date Last Indicated Resolved Time COVID-19 Rule Out 08/07/2023 08/07/2023 08/07/2023 9:37 AM COMMUNITY BOARD MEMBER Influenza - Seasonal 08/07/2023 08/07/2023 024 12:33 AM COMMUNITY BOARD MEMBER COVID-19 Rule Out 08/07/2023 08/07/2023 08/07/2023 12:46 PM COMMUNITY BOARD MEMBER Respiratory Rule Out 11/23/2024 11/23/2024 025 7:34 PM CDT COVID-19 Rule Out 11/23/2024 11/23/2024 11/23/2024 7:33 PM CDT documented as of this encounter Care Teams Canceling And Cutting Control Clerk Relationship Specialty Start [place] [address] [place] [address] PCP - General FAMILY PRACTICE 05/17/21 03/18/24 Elin Chau NP [address] [place] [phone] PCP - General NURSE PRACTITIONER 03/19/24 documented as of this encounter
--- OUTSIDE RECORDS SUMMARY | 2025-01-30 13:42 | XMS_ITS | Patient Health Record ---
Author Organization [facility] Address [address] [place] [address] Care Team Providers Care It Systems Manager Name Role Phone Sally Matamoros Primary Care Provider Soha Coles Unavailable [phone] Angie Velazquez Unavailable [phone] Yanira Pineda Unavailable [phone] Latisha Palacios Unavailable [phone] Allergies Allergen (clinical drug ingredient) Drug/Non Drug Allergy documented on EMR Reaction Allergy Type Onset Date Status cariprazine Vraylar nausea and vomiting Drug Allergy Active Reason For Referral Reason Therapy, counseling Diagnosis 1 Bipolar affective di sorder (F31.9) Diagnosis 2 Generalized anxiety disorder (F41.1) Referral Organization [facility] Referring Provider First Name Sally Referring Provider Last Name Saturnino Referring Provider Speciality Psychiatry Referred Provider Specialty Behavioral [facility] General Notes Sally Matamoros 11:06:43 AM > Client with high levels of depression and anxiety. Reports passive SI, denies any plan or intent, but reports wanting to start therapy and have further support as soon as she is able. Please refer. Thank you. Clinical Notes Ahsna Pineda 08/14/2024 02:04:11 PM > [employer] spoke with client who states she has an appointment scheduled next sunday. [employer] will fidelina referral as addressed. 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 Stress is when someone feels tense, nervous, anxious, or can\t sleep at night because their mind is troubled Somewhat In the past year have you sp ent more than 2 nights in a row in a retirement, usp, intermediate center, or juvenile correctional facility? No Do [...] Problem Status W/U Status Risk Notes Problem Morbid obesity (disorder) (594941385) Morbid (severe) obesity due to excess calories (E66.01) Active confirmed Problem Generalized anxiety disorder (81843203) Generalized anxiety disorder (F41.1) Active confirmed Problem Tobacco dependence (84520966) Tobacco dependence (F17.200) Active confirmed Problem Anxiety (87454572) Anxiety (F41.9) Active confirmed Problem Bipolar affective disorder (92902827) Bipolar affective disorder (F31.9) Active confirmed Problem Depressive disorder (30430603) Depressive disorder (F32.9) Active confirmed Problem Posttraumatic stress disorder (61518195) Chronic post-traumatic stress disorder (PTSD) (F43.12) Active confirmed Problem Obesity (472606624) Obesity (BMI 30-39.9) (E66.9) Active confirmed Problem Sleep disturbance (06535788) Sleep disturbance, unspecified (G47.9) Active confirmed Problem Body mass index 40+ - severely obese (081474848) Body mass index (BMI) of 40.0-44.9 in [...] 10/07/2024 Encounters Encounter Location Date Provider Diagnosis [address] [address] 02/27/2024 Angie Velazquez Generalized anxiety disorder F41.1 ; Bipolar affective disorder F31.9 ; Chronic post-traumatic stress disorder (PTSD) F43.12 ; Sleep disturbance, unspecified G47.9 ; Cannabis use disorder F12.90 and Medication monitoring encounter Z51.[address] [address] 03/26/2024 Sally Matamoros Generalized anxiety disorder F41.1 ; Bipolar affective disorder F31.9 ; Chronic post-traumatic stress disorder (PTSD) F43.12 ; Sleep disturbance, unspecified G47.9 ; Cannabis use disorder F12.90 and Medication monitoring encounter Z51.[address] [address] 05/14/2024 Sally Matamoros Generalized anxiety disorder F41.1 ; Bipolar affective disorder F31.9 ; Chronic post-traumatic stress disorder (PTSD) F43.12 ; Sleep disturbance, unspecified G47.9 ; Cannabis use disorder F12.90 and Medication monitoring encounter Z51.[address] [address] 06/02/2024 Sally Matamoros Bipolar affective disorder F31.9 ; Generalized anxiety disorder F41.1 ; Chronic post-traumatic stress disorder (PTSD) F43.12 ; Sleep disturbance, unspecified G47.9 ; Cannabis use disorder F12.90 and Medication monitoring encounter Z51.[address] [address] 08/13/2024 Sallyadi Matamoros Bipolar affective disorder F31.9 ; Generalized anxiety disorder F41.1 ; Chronic post-traumatic stress disorder (PTSD) F43.12 ; Sleep disturbance, unspecified G47.9 ; Cannabis use disorder F12.90 and Medication monitoring encounter Z51.[address] [address] 09/03/2024 Sally Matamoros Bipolar affective disorder F31.9 ; Generalized anxiety disorder F41.1 ; Chronic post-traumatic stress disorder (PTSD) F43.12 ; Sleep disturbance, unspecified G47.9 ; Cannabis use disorder F12.90 and Medication monitoring encounter Z51.[address] [address] 10/01/2024 Sally Matamoros Bipolar affective disorder F31.9 ; Generalized anxiety disorder F41.1 ; Chronic post-traumatic stress disorder (PTSD) F43.12 ; Sleep disturbance, unspecified G47.9 ; Cannabis use disorder F12.90 and Medication monitoring encounter Z51.81 [address] [place] [address] 10/07/2024 Sallyadi Matamoros Bipolar affective disorder F31.9 ; Generalized anxiety disorder F41.1 ; Chronic post-traumatic stress disorder (PTSD) F43.12 ; Sleep disturbance, unspecified G47.9 ; Cannabis use disorder F12.90 and Medication monitoring encounter Z51.[address] [address] 10/15/2024 Latisha Philip Anxiety F41.9 [facility] [address] [place] [address] 10/21/2024 Sally Matamoros Bipolar affective disorder F31.9 ; Generalized anxiety disorder F41.1 ; Chronic post-traumatic stress disorder (PTSD) F43.12 ; Sleep disturbance, unspecified G47.9 ; Cannabis use disorder F12.90 and Medication monitoring encounter Z51.81 [facility] [address] [place] [address] 11/04/2024 Sally Matamoros Bipolar affective disorder F31.9 ; Generalized anxiety disorder F41.1 ; Chronic post-traumatic stress disorder (PTSD) F43.12 ; Sleep disturbance, unspecified G47.9 ; Cannabis use disorder F12.90 and Medication monitoring encounter Z51.[address] [place] [address] 12/25/2024 Sally Matamoros Bipolar affective disorder F31.9 ; Generalized anxiety disorder F41.1 ; Chronic post-traumatic stress disorder (PTSD) F43.12 ; Sleep disturbance, unspecified G47.9 ; Cannabis use disorder F12.90 and Medication monitoring encounter Z51.[address] [place] [address] 01/15/2025 Sally Matamoros Bipolar affective disorder F31.9 ; Generalized anxiety disorder F41.1 ; Chronic post-traumatic stress disorder (PTSD) F43.12 ; Sleep disturbance, unspecified G47.9 ; Cannabis use disorder F12.90 and Medication monitoring encounter Z51.[address] [address] 02/28/2024 Angie Velazquez Bipolar affective disorder F31.[address] [place] [address] 03/26/2024 Sally Matamoros [address] [place] [address] 05/14/[address] [place] [address] [place] Saturnino [address] [address] 05/19/2024 Sally Matamoros Bipolar affective disorder F31.9 On License Of [facility] [address] [place] [address] 08/13/2024 Sally Matamoros On License Of [facility] [address] [place] [address] 08/14/2024 Sally Matamoros On License Of [facility] [address] [place] [address] 08/14/2024 Yanira Pineda [address] [place] [address] 08/26/2024 Sally Matamoros Bipolar affective disorder F31.[address] [place] [address] 10/01/2024 Sally Matamoros [address] [place] [address] 10/01/2024 Sally Matamoros [address] [place] [address] 10/01/2024 Sally Manzanonnan [address] [place] [address] 10/10/2024 Sally Matamoros [address] [place] [address] 10/13/2024 Sally Matamoros [address] [place] [address] 10/15/2024 Sally Matamoros [address] [place] [address] 10/16/2024 Sally Matamoros [address] [place] [address] 10/30/2024 Sally Matamoros [address] [place] [address] 12/18/2024 Sally Matamoros Generalized anxiety disorder F41.1 On License Of [facility] [address] [place] [address] 12/25/2024 Sally Matamoros [address] [place] [address] 10/17/2024 Sally Manzanonnan [address] [place] [address] 11/11/2024 Sally Matamoros Bipolar affective disorder F31.[address] [place] [address] 12/07/2024 Sally Manzanonnan [address] [place] [address] 12/07/2024 Sallyadi Matamoros Generalized anxiety disorder F41.1 Assessments Encounter Date Diagnosis (ICD Code) Assessment Notes Treatment Notes Treatment Clinical Notes Section Notes 02/27/2024 Generalized anxiety disorder (ICD-10 - F41.1) Changing forms to ODT as client reports waiting for clonazepam tablets to kick in has been causing troubles with work and prolonging pseudoseizure activity. Past trials: hydroxyzine, buspar, fluoxetin, celexa, venlafaxine, propranolol Clonazepam on for rare, PRN use only. Discussed controlled sub with patient. PDMP checked without concerns 02/28/2024 Bipolar affective disorder (ICD-10 - F31.9) 03/26/2024 Generalized anxiety disorder (ICD-10 - F41.1) Past trials: hydroxyzine, buspar, fluoxetin, celexa, venlafaxine, propranolol Clonazepam on for rare, PRN use only. Discussed controlled sub with patient. PDMP checked without concerns 05/14/2024 Generalized anxiety disorder (ICD-10 - F41.1) Past trials: hydroxyzine, buspar, fluoxetin, celexa, venlafaxine, propranolol Clonazepam on for rare, PRN use only. Discussed controlled sub with patient. PDMP checked without concerns 05/19/2024 Bipolar affective disorder (ICD-10 - F31.9) 06/02/2024 Bipolar affective disorder (ICD-10 - F31.9) [place] agreement to continue current regimen Past: Seroquel Past trials: Seroquel- headache at higher doses. Abilify- just stopped working. Retried Abilify and felt shaky. Risperdal- SE not tolerable. Topamax- headache, slurrred words per client- hx of doing well on Topamax. Client reports SI on lamotrigine. Discussed [facility] 08/13/2024 Bipolar affective disorder (ICD-10 - F31.9) Start lithium. Take as prescribed. Discussed uses for bipolar depression with SI. Reviewed risks associated like toxicity and water intake, cardiovascular changes. Educated on monitoring weight, kidney function and therapeutic blood trough levels. [place] [facility]: Have lithium level drawn after taking [...] Topamax. Client reports SI on lamotrigine. Discussed [facility] 08/26/2024 Bipolar affective disorder (ICD-10 - F31.9) 09/03/2024 Bipolar affective disorder (ICD-10 - F31.9) Recent labwork at 0.3 level- Increase lithium. Take as prescribed. Discussed uses for bipolar depression with SI. Reviewed risks associated like toxicity and water intake, cardiovascular changes. Educated on monitoring weight, kidney function and therapeutic blood trough levels. [place] [facility]: Have lithium level drawn after taking [...] Topamax. Client reports SI on lamotrigine. Discussed [facility] 10/01/2024 Bipolar affective disorder (ICD-10 - F31.9) Will request hospital records, decreasing dose and monitoring, get lab Sunday morning to keep close eye on levels. Labs to [facility] Past: Seroquel Past trials: Seroquel- headache at higher doses. Abilify- just stopped working. Retried Abilify and felt shaky. Risperdal- SE not tolerable. Topamax- headache, slurrred words per client- hx of doing well on Topamax. Client reports SI on lamotrigine. Discussed [facility] 10/07/2024 Bipolar affective disorder (ICD-10 - F31.9) Past: Seroquel Past trials: Seroquel- headache at higher doses. Abilify- just stopped working. Retried Abilify and felt shaky. Risperdal- SE not tolerable. Topamax- headache, slurrred words per client- hx of doing well on Topamax. Client reports SI on lamotrigine. Discussed [facility] 10/15/2024 Anxiety (ICD-10 - F41.9) 10/21/2024 Bipolar affective disorder (ICD-10 - F31.9) [...] Client reports SI on lamotrigine. Discussed [facility] 11/04/2024 Bipolar affective disorder (ICD-10 - F31.9) Increase Depakote/Valproic Acid. Take as prescribed. Purpose - promote mood stability. Reviewed side effects, including sedation, dose-dependent tremor, dizziness, ataxia, asthenia, headache abdominal pain, GI distress, and alopecia. Rarely can cause liver or pancreas dysfunction/failure. Labs in 1 week. [place] weaned, stop today. Past: Seroquel Past trials: Seroquel- headache at higher doses. Abilify- just stopped working. Retried Abilify and felt shaky. Risperdal- SE not tolerable. Topamax- headache, slurrred words per client- hx of doing well on Topamax. Client reports SI on lamotrigine. Discussed [facility] 11/11/2024 Bipolar affective disorder (ICD-10 - F31.9) 12/07/2024 Generalized anxiety disorder (ICD-10 - F41.1) 12/18/2024 Generalized anxiety disorder (ICD-10 - F41.1) 12/25/2024 Bipolar affective disorder (ICD-10 - F31.9) Increase 2 days ago by neuro, continue at this dose. Discussed CBT for PNES (nonepileptic seizures) Past: Seroquel Past trials: Seroquel- headache at higher doses. Abilify- just stopped working. Retried Abilify and felt shaky. Risperdal- SE not tolerable. Topamax- headache, slurrred words per client- hx of doing well on Topamax. Client reports SI on lamotrigine. Increased irritability with Depakote. [facility] has been completed. 01/15/2025 Bipolar affective disorder (ICD-10 - F31.9) Increased by neuro, states doing well/stable, continue at this dose. Discussed CBT for PNES (nonepileptic seizures) Past: Seroquel Past trials: Seroquel- headache at higher doses. Abilify- just stopped working. Retried Abilify and felt shaky. Risperdal- SE not tolerable. Topamax- headache, slurrred words per client- hx of doing well on Topamax. Client reports SI on lamotrigine. Increased irritability with Depakote. [facility] has been completed. 01/15/2025 Generalized anxiety disorder (ICD-10 - F41.1) Past trials: hydroxyzine, buspar, fluoxetin, celexa, venlafaxine, propranolol Discussed controlled sub with patient. DO NOT DRINK ETOH WITH THESE MEDICATIONS- client v/u and states she will not be drinking. Low efficacy with Valium and Ativan; continue with Klonopin at this time. PDMP checked without concerns 12/25/2024 Generalized anxiety disorder (ICD-10 - F41.1) Past trials: hydroxyzine, buspar, fluoxetin, celexa, venlafaxine, propranolol Discussed controlled sub with patient. DO NOT DRINK ETOH WITH THESE MEDICATIONS- client v/u and states she will not be drinking. Low efficacy with Valium and Ativan; continue with Klonopin at this time. PDMP checked without concerns 10/21/2024 Generalized anxiety [...] not be drinking. PDMP checked without concerns 09/03/2024 Generalized anxiety disorder (ICD-10 - F41.1) Past trials: hydroxyzine, buspar, fluoxetin, celexa, venlafaxine, propranolol Clonazepam on for rare, PRN use only. Discussed controlled sub with patient. PDMP checked without concerns 08/13/2024 Generalized anxiety disorder (ICD-10 - F41.1) Past trials: hydroxyzine, buspar, fluoxetin, celexa, venlafaxine, propranolol Clonazepam on for rare, PRN use only. Discussed controlled sub with patient. PDMP checked without concerns 10/01/2024 Generalized anxiety [...] ETOH use Sat. PDMP checked without concerns 06/02/2024 Generalized anxiety disorder (ICD-10 - F41.1) Past trials: hydroxyzine, buspar, fluoxetin, celexa, venlafaxine, propranolol Clonazepam on for rare, PRN use only. Discussed controlled sub with patient. PDMP checked without concerns 05/14/2024 Bipolar affective [...] reports SI on lamotrigine. Ordered [facility] testing. 03/26/2024 Bipolar affective disorder (ICD-10 - F31.9) [...] reports SI on lamotrigine. Ordering [facility] testing. 02/27/2024 Bipolar affective disorder (ICD-10 - F31.9) Continue current regimen as client reports stability but trouble with memoriy and concentration at 200mg, decreasing to 175mg as mood improvement noted. Past trials: Seroquel- headache at higher doses. Abilify- just stopped working. Risperdal- SE not tolerable. Topamax- headache, slurrred words per client- hx of doing well on Topamax. Client reports SI on lamotrigine. 02/27/2024 Chronic post-traumatic stress disorder (PTSD) (ICD-10 [...] disorder (PTSD) (ICD-10 - F43.12) encouraged therapy/counseling 01/15/2025 Chronic post-traumatic stress disorder (PTSD) (ICD-10 - F43.12) encouraged therapy/counseling 12/25/2024 Chronic post-traumatic stress disorder (PTSD) (ICD-10 - F43.12) encouraged therapy/counseling 12/25/2024 Sleep disturbance, unspecified (ICD-10 - G47.9) Discouraged caffeine intake. 01/15/2025 Sleep disturbance, unspecified (ICD-10 - G47.9) Discouraged caffeine intake. Trazodone with night-terrors 11/04/2024 Sleep disturbance, unspecified (ICD-10 - G47.9) [...] (ICD-10 - G47.9) Discouraged caffeine intake. 02/27/2024 Cannabis use disorder (ICD-10 - F12.90) [...] or cause adverse reactions. Patient voiced understanding. 01/15/2025 Cannabis use disorder (ICD-10 - F12.90) Discussed with patient that taking or using herbs, such as marijuana, and/or vitamins and supplements may interfere with or alter the way prescription medications work in the body or cause adverse reactions. Patient voiced understanding. 12/25/2024 Cannabis use disorder (ICD-10 - F12.90) Discussed with patient that taking or using herbs, such as marijuana, and/or vitamins and supplements may interfere with or alter the way prescription medications work in the body or cause adverse reactions. Patient voiced understanding. 12/25/2024 Medication monitoring encounter (ICD-10 - Z51.81) 01/15/2025 Medication monitoring encounter (ICD-10 - Z51.81) 11/04/2024 Medication monitoring encounter (ICD-10 - Z51.81) 10/21/2024 Medication monitoring encounter (ICD-10 - Z51.81) 10/01/2024 Medication monitoring encounter (ICD-10 - Z51.81) 10/07/2024 Medication monitoring encounter (ICD-10 - Z51.81) 09/03/2024 Medication monitoring encounter (ICD-10 - Z51.81) 06/02/2024 Medication monitoring encounter (ICD-10 - Z51.81) 08/13/2024 Medication monitoring encounter (ICD-10 - Z51.81) 05/14/2024 Medication monitoring encounter (ICD-10 - Z51.81) 02/27/2024 Medication monitoring encounter (ICD-10 - Z51.81) May self-administer medications or be administered own oral medications per [place] protocols. Provided informed consent with understanding of side effects, adverse effects, risks and benefits as well as alternative treatments as previously discussed and with the above recommended medications & other aspects of the treatment program. Agrees to return sooner if symptoms worsen or suicidal or homicidal ideations occur. 03/26/2024 Medication monitoring encounter (ICD-10 - Z51.81) 03/26/2024 Other Reasons, potential benefits, potential risks, [...] May also contact the 24-hour crisis hotline ([facility]), refer to the closest emergency room or [...] May also contact the 24-hour crisis hotline ([facility]), refer to the closest emergency room or [...] May also contact the 24-hour crisis hotline ([facility]), refer to the closest emergency room or [...] May also contact the 24-hour crisis hotline ([facility]), refer to the closest emergency room or [...] This session was completed telephonically with client/parental/guard lvi consent: Unable to determine movement status, assess [...] May also contact the 24-hour crisis hotline ([facility]), refer to the closest emergency room or [...] May also contact the 24-hour crisis hotline ([facility]), refer to the closest emergency room or [...] treatment plan and follow up. 10/15/2024 Other [employer] met with client via telehealth to discuss [...] May also contact the 24-hour crisis hotline ([facility]), refer to the closest emergency room or [...] May also contact the 24-hour crisis hotline ([facility]), refer to the closest emergency room or [...] assess appearance, affect, AIMS, or vital signs. 12/25/2024 Other Reasons, potential benefits, potential risks, interactions [...] May also contact the 24-hour crisis hotline ([facility]), refer to the closest emergency room or [...] assess appearance, affect, AIMS, or vital signs. 01/15/2025 Other Reasons, potential benefits, potential risks, interactions [...] May also contact the 24-hour crisis hotline ([facility]), refer to the closest emergency room or [...] Treatment Future Test Test Name Order Date Comprehensive Drug Analysis, Urine 01/02 Insurance Providers Payer Name Payer Address Payer Phone Subscriber Number Group Number Insured Name Patient Relationship to Insured Coverage Start Date Coverage End Date [employer] [address] [place] [address] [id number] Elizabeth Lim Self - patient is the insured 2 [facility] Attn Claims Department [address] [place] [phone] [id number] Elizabeth Lim Self - patient is the insured 6 1 [facility] Attn Claims Department [address] [place] [phone] [id number] NathalyLeticia dickeyna Self - patient is the insured 2 1 [employer] [address] [place] [address] [id number] CastilloaishaLeticia dickeyna Self - patient is the insured 2 [employer] [address] [place] [address] [id number] Raphael Elizabeth Self - patient is the insured 5 Medical (General) History Medical History History ICD Code Anxiety Bipolar disorder Major depressive disorder, single episod e, unspecified F32.9 Seizures R56.9 Surgical History Surgery Date(Month/Year) 01/2017 appendectomy Hospitalization History Reason Date(Month/Year) Seizure hospitalization at [facility] 10/05/24
--- OUTSIDE RECORDS SUMMARY | 2025-01-30 13:42 | XMS_ITS | Encounter Summary ---
Author Organization [facility] Address [facility] [place] [address] Care Team Providers Care Trial Justice Name Role Phone Airam Daniel NP Primary Care Provider Unav ailable Won Faustin MD Primary Care Provider [phone] Elin Chau NP Primary Care Provider [phone] Encounter Details Date Type Department Care Team (Late st Contact Info) Description 11/28/2020 [employer] Enterprisest Message Enc [facility] Medical [facility] Family & Internal Medicine [address] [address] Airam Daniel NP RE: Question [...] have Coronavirus / COVID-19? No / Unsure 11/30/2020 2:21 AM CDT documented as of this encounter [...] documented in this encounter Progress Notes * Airam Daniel NP - 11/29/2020 9:28 AM CDT Yes, I almost would like someone to lay eyes on her, either via video or in person. Thanks * Melinda Bailon RN - 11/29/2020 9:13 AM CDT Please advise. Do you want to see patient first. documented in this encounter Plan of Treatment Upcoming Encounters Date Type Department Care Team (Late st Contact Info) Description 03/24/2025 8:40 AM CDT Office Visit [facility] [address] [facility], [address] [place] [address] Gildardo Chao MD [address] [place] [address] 03/30/2025 2:15 PM CDT Office Visit [place] [facility] [address] [place] [phone] Marquis Salmeron MD Three [facility]. 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 Office Visit [facility] [address] [facility], [address] [place] [phone] Gildardo Chao MD [address] [place] [address] documented as of this encounter Visit Diagnoses Not on filedocumented in this encounter Additional Health Concerns Infection Onset Date Last Indicated Resolved Time COVID-19 Rule Out 06/07/2021 06/07/2021 06/07/2021 11:27 AM RAILROAD OPERATOR COVID-19 Confirmed 06/07/2021 06/07/2021 12:32 AM RAILROAD OPERATOR COVID-19 Rule Out 08/07/2023 08/07/2023 08/07/2023 9:37 AM RAILROAD OPERATOR Influenza - Seasonal 08/07/2023 08/07/20232 024 12:33 AM RAILROAD OPERATOR COVID-19 Rule Out 08/07/2023 08/07/2023 08/07/2023 12:46 PM RAILROAD OPERATOR Respiratory Rule Out 11/23/2024 11/23/2024 025 7:34 PM CDT COVID-19 Rule Out 11/23/2024 11/23/2024 11/23/2024 7:33 PM CDT documented as of this encounter Care Teams Trial Justice Relationship Specialty Start Date End Date Airam Daniel NP PCP - General NURSE PRACTITIONER 03/19/20 05/16/21 [place] [address] [place] [address] PCP - General FAMILY PRACTICE 05/17/21 03/18/24 Elin Chau NP [address] [place] [address] PCP - General NURSE PRACTITIONER 03/19/24 documented as of this encounter
--- OUTSIDE RECORDS SUMMARY | 2025-01-30 13:42 | XMS_ITS | Encounter Summary ---
Author Organization [facility] Address [facility] [place] [address] Care Team Providers Care Relay Adjuster Name Role Phone Airam Daniel NP Primary Care Provider Unav ailable Won Faustin MD Primary Care Provider [phone] Elin Chau NP Primary Care Provider [phone] Encounter Details Date Type Department Care Team (Late st Contact Info) Description 02/15/2021 [employer] Message Enc [facility] Medical Group Family & Internal Medicine [address] [address] Airam Daniel NP RE: Question [...] have Coronavirus / COVID-19? No / Unsure 01/26/2021 12:07 PM CDT documented as of this encounter [...] Date Author Status No 04/08/2020 11:13 AM CDT Barbara Alcocer RN Active documented in this encounter Progress Notes * Pepito Newton MD - 02/15/2021 8:18 AM CDT 20 minutes would be fine. * Pepito Newton MD - 02/15/2021 8:18 AM CDT Patient would need in person visit with me since I have never seen her before. documented in this encounter Plan of Treatment Upcoming Encounters Date Type Department Care Team (Late st Contact Info) Description 03/24/2025 8:40 AM CDT Office Visit [facility] [address] [facility], [address] [place] [address] Gildardo Chao MD [address] [place] [address] 03/30/2025 2:15 PM CDT Office Visit [place] [facility] [address] [place] [phone] Marquis Salmeron MD Three [facility]. [address] [place] [address] 05/18/2025 1:20 PM SIDEROGRAPHER Office Visit [facility] [address] [facility], [address] [place] [address] Gildardo Chao MD [address] [place] [address] documented as of this encounter Visit Diagnoses Not on filedocumented in this encounter Additional Health Concerns Infection Onset Date Last Indicated Resolved Time COVID-19 Rule Out 06/07/2021 06/07/2021 06/07/2021 11:27 AM SIDEROGRAPHER COVID-19 Confirmed 06/07/2021 06/07/2021 12:32 AM SIDEROGRAPHER COVID-19 Rule Out 08/07/2023 08/07/2023 08/07/2023 9:37 AM SIDEROGRAPHER Influenza - Seasonal 08/07/2023 08/07/2023 024 12:33 AM SIDEROGRAPHER COVID-19 Rule Out 08/07/2023 08/07/2023 08/07/2023 12:46 PM SIDEROGRAPHER Respiratory Rule Out 11/23/2024 11/23/2024 025 7:34 PM CDT COVID-19 Rule Out 11/23/2024 11/23/2024 11/23/2024 7:33 PM CDT documented as of this encounter Care Teams Relay Adjuster Relationship Specialty Start Date End Date Airam Daniel NP PCP - General NURSE PRACTITIONER 03/19/20 05/16/21 [place] [address] [place] [address] PCP - General FAMILY PRACTICE 05/17/21 03/18/24 Elin Chau NP [address] [place] [address] PCP - General NURSE PRACTITIONER 03/19/24 documented as of this encounter
--- OUTSIDE RECORDS SUMMARY | 2025-01-30 13:43 | XMS_ITS | Encounter Summary ---
Author Organization [facility] Address [address] [place] [address] Care Team Providers Care Microarray Operations Vice President Name Role Phone Lakshmi Flor MD Primary Care Provider Unavailab Airam Weinstein SECURITIES UNDERWRITER Primary Care Provider Unav ailable Won Faustin MD Primary Care Provider [phone] Elin Chau SECURITIES UNDERWRITER Primary Care Provider [phone] Encounter Details Date Type Department Care Team (Late Contact Info) Description 12/09/2014 Abstract [facility] CONVERSION [address] [place] [address] , Generic ConversionMD Social History Tobacco Use Types Packs/Day Years Used Date Smoking Tobacco: Never Assessed Comments Unknown Sex and Gender Information Value Date Recorded Sex Assigned at Female 09/30/2024 1:32 PM CDT Legal Sex Female 7:07 PM CDT Gender Identity Not on file Sexual Orientation Not on file documented as of this encounter Plan of Treatment Upcoming Encounters Date Type Department Care Team (Late Contact Info) Description 03/24/2025 8:40 AM CDT Office Visit [facility] Medical Group Multispecialty Care - [facility] [address] [facility], [address] [place] [address] Gildardo Chao MD [address] [place] [address] 03/30/2025 2:15 PM CDT [facility] [address] [place] [address] Marquis Salmeron MD Three [facility]. [address] [place] [address] 05/18/2025 1:20 PM SPECIAL PROCEDURES NURSE Office Visit [facility] Medical Group Multispecialty Care - [facility] [address] [facility], [address] [place] [address] Gildardo Chao MD [address] [place] [address] documented as of this encounter Visit Diagnoses Not on filedocumented in this encounter Additional Health Concerns Infection Onset Date Last Indicated Resolved Time COVID-19 Rule Out 06/07/2021 06/07/2021 06/07/2021 11:27 AM SPECIAL PROCEDURES NURSE COVID-19 Confirmed 06/07/2021 06/07/2021 12:32 AM SPECIAL PROCEDURES NURSE COVID-19 Rule Out 08/07/2023 08/07/2023 08/07/2023 9:37 AM SPECIAL PROCEDURES NURSE Influenza - Seasonal 08/07/2023 08/07/2023 024 12:33 AM SPECIAL PROCEDURES NURSE COVID-19 Rule Out 08/07/2023 08/07/2023 08/07/2023 12:46 PM SPECIAL PROCEDURES NURSE Respiratory Rule Out 11/23/2024 11/23/2024 025 7:34 PM CDT COVID-19 Rule Out 11/23/2024 11/23/2024 11/23/2024 7:33 PM CDT documented as of this encounter Care Teams Microarray Operations Vice President Relationship Specialty Start Date End Date Lakshmi Flor MD PCP - General INTERNAL MEDICINE 09/27/17 03/18/20 Airam Daniel NP PCP - General NURSE PRACTITIONER 03/19/20 05/16/21 [place] [address] [place] [address] PCP - General FAMILY PRACTICE 05/17/21 03/18/24 Elin Chau NP [address] [place] [address] PCP - General NURSE PRACTITIONER 03/19/24 documented as of this encounter
--- OUTSIDE RECORDS SUMMARY | 2025-01-30 13:43 | XMS_ITS | Encounter Summary ---
Author Organization [facility] Address [address] [place] [address] Care Team Providers Care Professor Of Poultry Science Name Role Phone Lakshmi Flor MD Primary Care Provider Unavailab Airam Weinstein CAR WASH SUPERVISOR Primary Care Provider Unav ailable Won Faustin MD Primary Care Provider [phone] Elin Chau CAR WASH SUPERVISOR Primary Care Provider [phone] Encounter Details Date Type Department Care Team (Late Contact Info) Description 02/27/2014 Abstract [facility] CONVERSION [address] [place] [address] , Generic ConversionMD Social History Tobacco Use [...] Description 03/24/2025 8:40 AM CDT Office Visit [facility] Medical Group Multispecialty Care - [facility] [address] [facility], [address] [place] [address] Gildardo Chao MD [address] [place] [address] 03/30/2025 2:15 PM CDT [facility] [address] [place] [address] Marquis Salmeron MD Three [facility]. [address] [place] [address] 05/18/2025 1:20 PM SERVICE CONSULTANT Office Visit [facility] Medical Group Multispecialty Care - [facility] [address] [facility], [address] [place] [phone] Gildardo Chao MD [address] [place] [address] documented as of this encounter Visit Diagnoses Not on filedocumented in this encounter Additional Health Concerns Infection Onset Date Last Indicated Resolved Time COVID-19 Rule Out 06/07/2021 06/07/2021 06/07/2021 11:27 AM SERVICE CONSULTANT COVID-19 Confirmed 06/07/2021 06/07/2021 12:32 AM SERVICE CONSULTANT COVID-19 Rule Out 08/07/2023 08/07/2023 08/07/2023 9:37 AM SERVICE CONSULTANT Influenza - Seasonal 08/07/2023 08/07/2023 024 12:33 AM SERVICE CONSULTANT COVID-19 Rule Out 08/07/2023 08/07/2023 08/07/2023 12:46 PM SERVICE CONSULTANT Respiratory Rule Out 11/23/2024 11/23/2024 025 7:34 PM CDT COVID-19 Rule Out 11/23/2024 11/23/2024 11/23/2024 7:33 PM CDT documented as of this encounter Care Teams Professor Of Poultry Science Relationship Specialty Start Date End Date Lakshmi Flor MD PCP - General INTERNAL MEDICINE 09/27/17 03/18/20 Airam Daniel NP PCP - General NURSE PRACTITIONER 03/19/20 05/16/21 [place] [address] [place] [address] PCP - General FAMILY PRACTICE 05/17/21 03/18/24 Elin Chau NP [address] [place] [address] PCP - General NURSE PRACTITIONER 03/19/24 documented as of this encounter
--- OUTSIDE RECORDS SUMMARY | 2025-01-30 13:43 | XMS_ITS | Data Portability ---
Author Organization [facility], Main Office Address [address] [place] [address] Assessment No assessment recorded. Plan of Treatment Reminders Order Date Submit Date Provider Last Modified By Organization Details Last Modified Time Details Appointments None recorded. Lab hemoglobin A1C, fingerstick 2024 025 [facility], [address] [place] [address], [id number], 5 14:50:47 microalbumi n, dipstick, urine [email or web address] (Lab), [address] [place], [address], 5 09:00:16 lipid panel, serum 2023 024 [facility] (Lab), [address] [place], [address], 4 16:48:00 TSH, serum or plasma 2023 024 [facility] (Lab), [address] [place], [address], 4 16:48:00 CBC w/ auto diff 2023 024 [facility] (Lab), [address] [place], [address], 4 16:48:00 glycohemogl obin, total, blood 2023 024 [facility] (Lab), [address] [place], [address], 4 16:47:59 CMP, serum or plasma 2023 [facility] (Lab), [address] [place], [address], 4 16:47:59 Referral ophthalmolo gist referral - Please call patient to schedule an appointment . Thank you. 2023 024 [email or web address] [facility], [address] , [place], [address], 08:54:14 neurologist referral - Please call patient to schedule an appointment . Thank you. 2023 024 [email or web address] Gildardo Chao MD, [address], [place], [address], 4 08:53:39 Procedures None recorded. Surgeries None recorded. Imaging XR, lumbosacral spine, 2 or 3 view 2023 024 [facility] - Radiology New Fax # As Of 11/05/23), [address] [place], [address], 4 11:53:03 XR, pelvis 2023 024 [facility] - Radiology New Fax # As Of 11/05/23), [address] [place], [address], 4 12:09:37 Medication Orders amoxicillin 875 mg-potassiu m clavulanate 125 mg tablet 2024 025 [id number], [address] [place], [place], [id number], 5 14:52:04 lisinopril 10 mg tablet 2024 025 MALINI [facility] #57818, [address] [place], [place], [id number], 12:56:00 lisinopril 10 mg tablet 2023 024 [facility], [address] [place], [place], [id number], 12:39:26 diclofenac sodium 75 mg tablet,megan yed release 2023 024 [facility] #51051, [address] [place], [place], [id number], 10:18:42 Patient TargetsNo targets recorded. Patient Instructions Encounter Date Encounter Id Patient Instructions Last Modified By Organization Details Last Modified Time 11/28/2024 [id number] albumin urine test: about this test [facility] Not available 11/28/2024 14:42:29 Reason for Referral Neurologist Referral for Sta tus migrainosus Please call patient to schedule an appointment. Thank you. Referring Physician: Elin Chau [facility] Medicine, Encounter Date: 05/28/2024 Jailkeeper Referral for Visual disturbance Please call patient to schedule an appointment. Thank you. Referring Physician: Elin Chau [facility] Medicine, Encounter Date: 05/28/2024 Results Created Date Observation Date Name Description Value Unit Range Abnormal Flag Note LastModifiedBy Organization Detail LastModifiedTime 11/29/1911/28/2024 hemog lobin A1C, finge rstic k HgbA1C 4.8 Not Available [facility] [address] [place] [address], [address], 11/28/2024 14:27:36 03/19/20 24 03/19/2024 XR, lumbo sacra l spine , 2 or 3 view No observ ation record ed. [facility] [address] [place], [address], 03/19/2024 12:28:24 03/19/20 24 03/19/2024 XR, pelvi s No observ ation record ed. [facility] [address], [place], [address], 03/19/2024 12:28:25 11/20/19 25 11/19/2024 lumba r punct ure (PROC ) No observ ation record ed. [facility] [place]: Pulmonology [address] [facility], [place], [address], 11/19/2024 13:16:26 Result Notes None recorded. Problems Name Problem SNOMED Code Status Onset Date Resolution Date Notes Provider Name and Address Organization Details Recorded Time Hypoglycemia 408394199 Active 2023 MILLIE Jose [address], [address], [place], [address], [employer] 4 10:43:26 Sacral back pain 59362082 Active 2023 MILILE Jose [address], [address], [place], [address], [employer] 4 10:45:11 Obesity 397869430 Active 2023 MILLIE Jose [address], [address], [place], [address], [employer] 4 10:51:57 Bipolar disorder 06520023 Active 2023 MILLIE Jose [address], [address], [place], [address], [employer] 4 10:52:07 Low back pain 639970652 Active 2023 MILLIE Jose [address], [address], [place], [address], [employer] 4 12:28:56 Essential hypertension 50002728 Active 2023 Lore Cesar RN null, [employer] 5 14:08:03 Migraine with aura 9996645 Active 2023 MILLIE Jose [address] [facility], [place] [address], [place], [address], [employer] 4 10:28:40 Status migrainosus 324324036 Active 2023 MILLIE Jose [address] [facility], [place] [address], [place], [address], [employer] 4 10:47:52 Visual disturbance 98810301 Active 2023 MILLIE Jose [address] [facility], [place] [address], [place], [address], [employer] 4 10:48:10 Mass of body structure 317588139 Active 2024 MILLIE Jose [address] [facility], [place] [address], [place], [address], [employer] 5 12:58:13 Ketonuria 281276615 Active 2024 MILLIE Jose [address] [facility], [place] [address], [place], [address], [employer] 5 14:26:44 Fever with chills 295904199 Active 2024 MILLIE Jose [address] [facility], [place] [address], [place], [address], [employer] 5 14:27:54 Problem Notes None recorded. Procedures Surgical History Date Name Laterality Status Provider Name and Address Organization Details Recorded Time 07/16/19 20 delivery completed Lore Cesar RN [facility] 03/19/2024 10:32:57 delivery completed Corby Cesar RN [facility] 03/19/2024 10:32:43 Appendectomy completed Lore Cesar RN [facility] 03/19/2024 10:33:05 tonsillectomy and adenoidectomy completed Lore Cesar RN [facility] 03/19/2024 10:33:19 Imaging Results None recorded. Procedure Notes None recorded. Medical Equipment None Reported. Allergies Allergen ID Allergen Name Allergen Category Reaction Reaction Severity Criticality Documentation Date Start Date Code Code System Note Provider Name and Address Organization Details Recorded Time 83887 Vraylar medicatio n seizure moderate Not available 03/19/2024 75735 61 RxNorm suici catalina Lore Cesar RN [facility], [facility] 10:22:59 Medications Name Sig Start Date Stop [...] tablet TAKE 1 TABLET BY MOUTH DAILY 11/21 completed Not Available Not Available Not [...] Updated DateTime 5 167.64 cm 32 kg/m2 52148.3 9 g 97.4 [degF] 98 % 98 % 75 /min 150/100 mm[Hg] Annel Messer RN [facility] 5 12:36:44 Date Recorded Body height Body mass index (BMI) Body weight Body temperature Heart rate Respiratory rate Oxygen saturation Oxygen saturation in Arterial blood by Pulse oximetry Systolic And Diastolic Provider Name and Address Organization Details Last Updated DateTime 5 167.64 cm 31.8 kg/m2 75157.7 g 97.9 [degF] 70 /min 20 /min 99 % 99 % 140/100 mm[Hg] Lore Cesar RN [facility] 5 14:12:37 Date Recorded Body weight Body mass index (BMI) Body height Body temperature Heart rate Respiratory rate Oxygen saturation Oxygen saturation in Arterial blood by Pulse oximetry Systolic And Diastolic Provider Name and Address Organization Details Last Updated DateTime 4 833883. 63 g 36.3 kg/m2 167.64 cm 97.9 [degF] 85 /min 20 /min 98 % 98 % 134/102 mm[Hg] Lore Cesar RN [facility] 4 10:35:27 Date Recorded Body height Body mass index (BMI) Body weight Body temperature Heart rate Respiratory rate Oxygen saturation Oxygen saturation in Arterial blood by Pulse oximetry Systolic And Diastolic Provider Name and Address Organization Details Last Updated DateTime 4 167.64 cm 37.6 kg/m2 951973. 07 g 97.3 [degF] 71 /min 20 /min 99 % 99 % 140/96 mm[Hg] Lore Cesar RN [facility] 4 10:21:13 Date Recorded Body height Body mass index (BMI) Body weight Body temperature Heart rate Respiratory rate Oxygen saturation Oxygen saturation in Arterial blood by Pulse oximetry Systolic And Diastolic Provider Name and Address Organization Details Last Updated DateTime 167.64 cm 36.7 kg/m2 921243. 92 g 97.9 [degF] 92 /min 20 /min 99 % 99 % 160/100 mm[Hg] Lore Cesar RN [facility] [employer] [facility] 4 10:28:39 Social History Question Answer Notes LastModified by Organizat ion Details LastModified Time Tobacco Smoking Status Former Smoker Lore Cesar RN [facility] 03/19/2024 10:36:37 Do You Have An Advance [...] Do You Have A Medical Power Of Tomato Pulper Operator? 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 Current user of electronic cigarettes Information not available 03/19/2024 What is your exercise level? Occasional Information not available 03/19/2024 Mental Status Question Answer Note LastModified by Organization D etails LastModified Time Do you feel stressed (tense, restless, nervous, or anxious, or unable to sleep at night)? [id number] Information not available 05/28/2024 Family History Relationship [...] SNOMED-CT Code Diagnosis ICD10 Code Diagnosis Note [id number] Tim Gardner MD [address] [address] 03/19/2024 09:52:14 03/19/2024 11:00:55 Hypoglycemia 571942264 E16.2 Sacral back pain 1990823 3 M54.50 Has been doing stretches at home Obesity 929595735 E66.9 Bipolar disorder 9940003 4 F31.9 Sees psych [id number] Tim Gardner MD [facility] [address] [place] [address] 05/21/2024 10:12:08 05/21/2024 10:44:07 Essential hypertension 83017450 I10 Advised to check BP before taking, do not take of less than 130/80 Migraine with aura 20580 06 G43.109 Ubrelvy given in office [id number] Tim Gardner MD [address] [address] 05/28/2024 10:20:10 05/28/2024 11:00:01 Status migrainosus 150197509 G43.901 Due to risk of intercrani al hypertensi on, patient advised to FU at [facility] today Visual disturbance 13544 001 H53.9 [id number] MILLIE Jose [facility] [address] [address] 11/21/2024 12:16:07 11/24/2024 08:05:45 Essential hypertension 71502696 I10 Advised to check BP before taking, do not take of less than 130/80 Mass of arti dy structure 219583542 G93.2 Managed by neuro, just has LP and has MRI tomorrow [id number] MILLIE Jose [facility] [address] 11/28/2024 14:04:00 12/02/2024 10:55:32 Ketonuria 120068095 R82.4 Identified in ER Fever with chills 288476 006 R50.9 Perisisten t x 1 week, elevated WBC in ERrecent LP Health Concerns Section Related Observation LastModified by Organization Detai ls LastModified Time None Recorded Concern Status LastModified by Organization Details LastModified Time None Recorded Advance Directives Directive N: Payers Insurance Date Sequence Insurance Name Policy Number Policy Lange Covered Member ID Lange Member ID Guarantor Name 12/30/2024 1 [facility] Elizabeth Lim [id number] Elizabeth Lim 12/30/2024 1 [facility] (MEDICAID HMO) [id number] Elizabeth Lim [id number] Elizabeth Lim 03/19/2024 1 [facility] - DOS PRIOR TO 2021 (MEDICAID REPLACEMENT - HMO) Elizabeth Lim [id number] Elizabeth Lim Notes Date Note Type Note Provider Name and Address Organization Details Recorded Time 03/19/2024 text/html Elizabeth Lim is a 28 year old female here today to establish care She sees psych at [facility] in [place]. Diagnosed with depression, anxiety, and bipolar. States [...] MILLIE Jose [address], [address], [place], [address], [employer] 03/19/2024 10:55:05 05/21/2024 text/html Elizabeth Lim is [...] arrival 140/96, recheck 112/80 MILLIE Jose [address], [address], [place], [address], [employer] 05/21/2024 10:34:46 05/28/2024 text/html Elizabeth Lim is a 28 year old female patient here today to FU on a headache She was seen here on 05/21 for a migraine, she was given a Ubrelvy sample and sent home to rest. After leaving here she began vomiting and had visual changes. She went to [facility] and was found by US to have papilledema. She was sent to [facility] for a spinal tap and MRI, [facility] saw her, did no imaging or labs and sent her home. The next morning her vision got worse and she went to [facility] ER. There she was given HCTZ. She is still having intermittent blurred vision, constant headache around the occipital region. Her blood pressure is still extremely elevated at 160/100, despite lisinopril and HCTZ. Pt advised to return to [facility] ER Elin Ramosrenee MILLIE [address], [place], [address], [employer] 05/28/2024 10:51:05 11/21/2024 text/html Elevated blood pressure. She did previously take lisinopril 10 mg and stopped this. We will restart. She did have a lumbar puncture on 11/19/24, this is normal.She has chronic migraines. She does see neurology, he states she has excessive pressure around her brain. Elin MILLIE Chau [address], [address], [place], [address], [employer] 11/21/2024 13:01:18 11/28/2024 text/html Sunday morning s [...] MILLIE Jose [address], [place], [address], [employer] 11/28/2024 15:04:23 OBGyn Episode No OBEpisode recorded.
--- OUTSIDE RECORDS SUMMARY | 2025-01-30 13:43 | XMS_ITS | Encounter Summary ---
Author Organization [facility] Address [address] [place] [address] Care Team Providers Care Signal Operator Technical Name Role Phone Lakshmi Flor MD Primary Care Provider Unavailab Airam Weinstein ALMOND BLANCHER HAND Primary Care Provider Unav ailable Won Faustin MD Primary Care Provider [phone] Elin Chau ALMOND BLANCHER HAND Primary Care Provider [phone] Encounter Details Date Type Department Care Team (Late Contact Info) Description 11/12/2014 Abstract [facility] CONVERSION [address] [place] [address] , Generic ConversionMD Social History Tobacco Use [...] Description 03/24/2025 8:40 AM CDT [facility] [address] [facility], [address] [place] [address] Gildardo Chao MD [address] [place] [address] 03/30/2025 2:15 PM CDT [facility] [address] [place] [address] Marquis Salmeron MD [facility]. [address] [place] [address] 05/18/2025 1:20 PM C D STILL OPERATOR [facility] [address] [facility], [address] [place] [address] Gildardo Chao MD [address] [place] [address] documented as of this encounter Visit Diagnoses Not on filedocumented in this encounter Additional Health Concerns Infection Onset Date Last Indicated Resolved Time COVID-19 Rule Out 06/07/2021 06/07/2021 06/07/2021 11:27 AM C D STILL OPERATOR COVID-19 Confirmed 06/07/2021 06/07/2021 12:32 AM C D STILL OPERATOR COVID-19 Rule Out 08/07/2023 08/07/2023 08/07/2023 9:37 AM C D STILL OPERATOR Influenza - Seasonal 08/07/2023 08/07/2023 024 12:33 AM C D STILL OPERATOR COVID-19 Rule Out 08/07/2023 08/07/2023 08/07/2023 12:46 PM C D STILL OPERATOR Respiratory Rule Out 11/23/2024 11/23/2024 025 7:34 PM CDT COVID-19 Rule Out 11/23/2024 11/23/2024 11/23/2024 7:33 PM CDT documented as of this encounter Care Teams Signal Operator Technical Relationship Specialty Start Date End Date Lakshmi Flor MD PCP - General INTERNAL MEDICINE 09/27/17 03/18/20 Airam Daniel NP PCP - General NURSE PRACTITIONER 03/19/20 05/16/21 [place] [address] [place] [address] PCP - General FAMILY PRACTICE 05/17/21 03/18/24 Elin Chau NP [address] [place] [address] PCP - General NURSE PRACTITIONER 03/19/24 documented as of this encounter
--- OUTSIDE RECORDS SUMMARY | 2025-01-30 13:43 | XMS_ITS | Clinical Summary ---
Author Organization [facility] Address [address] [place] [address] Care Team Providers Care Shaker Washer Name Role Phone Unavailable Primary Care Provider Unavailabl e Source Comments [facility],non-owned Affiliates and Associated Physician Practices is amultiple site organization consisting of ambulatory clinics and hospital sitesin [place], [place], [place] and [place]. This disclosure is being madepursuant to the Care Everywhere program and may not contain all information available regarding this patient. Last updated 18.[facility] [employer] Allergies No known active allergies Medications * [...] on file Legal Sex Female 5:38 AM DIRECTOR OF CURRICULUM AND INSTRUCTION Gender Identity Not on file Sexual Orientation [...] Health Maintenance Due Date Last Done Comments HIV SCREENING 2012 HEPATITIS C SCREENING 11/05/2015 DTAP/TDAP/TD VACCINES (1 - Tdap) 2016 HEPATITIS B VACCINE (1 of 3 - 19+ 3-dose series) 2016 PAP SMEAR 2018 COVID-19 VACCINE (1 - 2023-2 5 season) 2024 DEPRESSION SCREENING 07/16/2024 HPV VACCINE (1 - 3-dose SCDM series) 2024 INFLUENZA VACCINE (#1) 2025 08/01/2013 ZOSTER VACCINE (1 of 2) 11/10/2047 HIB [...] patient's age to complete this topic Insurance [facility]
--- OUTSIDE RECORDS SUMMARY | 2025-01-30 13:43 | XMS_ITS | Encounter Summary ---
Author Organization [facility] Address [address] [place] [address] Care Team Providers Care Map Colorer Name Role Phone Lakshmi Flor MD Primary Care Provider Unavailab Airam Weinstein CLINICAL CONSULTANT Primary Care Provider Unav ailable Won Faustin MD Primary Care Provider [phone] Elin Chau CLINICAL CONSULTANT Primary Care Provider [phone] Encounter Details Date Type Department Care Team (Late Contact Info) Description 07/22/2015 Abstract [facility] CONVERSION [address] [place] [address] , Generic ConversionMD Social History Tobacco Use [...] Description 03/24/2025 8:40 AM CDT Office Visit [facility] - [facility] [address] [facility], [address] [place] [address] Gildardo Chao MD [address] [place] [address] 03/30/2025 2:15 PM CDT [facility] [address] [place] [address] Marquis Salmeron MD [facility]. [address] [place] [address] 05/18/2025 1:20 PM ENVELOPE FOLDING MACHINE ADJUSTER Office Visit [facility] - [facility] [address] [facility], [address] [place] [address] Gildardo Chao MD [address] [place] [address] documented as of this encounter Visit Diagnoses Not on filedocumented in this encounter Additional Health Concerns Infection Onset Date Last Indicated Resolved Time COVID-19 Rule Out 06/07/2021 06/07/2021 06/07/2021 11:27 AM ENVELOPE FOLDING MACHINE ADJUSTER COVID-19 Confirmed 06/07/2021 06/07/2021 12:32 AM ENVELOPE FOLDING MACHINE ADJUSTER COVID-19 Rule Out 08/07/2023 08/07/2023 08/07/2023 9:37 AM ENVELOPE FOLDING MACHINE ADJUSTER Influenza - Seasonal 08/07/2023 08/07/2023 024 12:33 AM ENVELOPE FOLDING MACHINE ADJUSTER COVID-19 Rule Out 08/07/2023 08/07/2023 08/07/2023 12:46 PM ENVELOPE FOLDING MACHINE ADJUSTER Respiratory Rule Out 11/23/2024 11/23/2024 025 7:34 PM CDT COVID-19 Rule Out 11/23/2024 11/23/2024 11/23/2024 7:33 PM CDT documented as of this encounter Care Teams Map Colorer Relationship Specialty Start Date End Date Lakshmi Flor MD PCP - General INTERNAL MEDICINE 09/27/17 03/18/20 Airam Daniel NP PCP - General NURSE PRACTITIONER 03/19/20 05/16/21 [place] [address] [place] [address] PCP - General FAMILY PRACTICE 05/17/21 03/18/24 Elin Chau NP [address] [place] [address] PCP - General NURSE PRACTITIONER 03/19/24 documented as of this encounter
--- OUTSIDE RECORDS SUMMARY | 2025-01-30 13:43 | XMS_ITS | Encounter Summary ---
Author Organization [facility] Address [facility] [place] [address] Care Team Providers Care Trim Crew Supervisor Name Role Phone Elin Chau INSPECTOR SUBASSEMBLIES Primary Care Provider [phone] Encounter Details Date Type Department Care Team (Late st Contact Info) Description 12/15/2024 Hi-Midia Message Enc [facility] Multispecialty Care - [facility] [address], [address] [place] [address] Tara, [facility] Provider Results Social History Tobacco Use Types Packs/Day Years [...] file Not on file Not on file documented as of this encounter Functional Status [...] Assessment Author Status No 04/08/2020 11:13 AM Barbara Hancock RN Active documented as of this encounter [...] Description 03/24/2025 8:40 AM CDT Office Visit [facility] [address] [facility], [address] [place] [address] Gildardo Chao MD [address] [place] [address] 03/30/2025 2:15 PM CDT [facility] [address] [place] [address] Marquis Salmeron MD [facility]. [address] [place] [address] 05/18/2025 1:20 PM ENGINEERING LAB TECHNICIAN Office Visit [facility] - [facility] [address] [facility], [address] [place] [address] Gildardo Chao MD [address] [place] [address] documented as of this encounter Visit Diagnoses Not on filedocumented in this encounter Care Teams Trim Crew Supervisor Relationship Specialty Start Date End Date Elin Chau NP [address] [place] [address] PCP - General NURSE PRACTITIONER 03/19/24 documented as of this encounter
--- OUTSIDE RECORDS SUMMARY | 2025-01-30 13:43 | XMS_ITS | Encounter Summary ---
Author Organization [facility] Address [address] [place] [address] Care Team Providers Care Mechanical Applications Engineer Name Role Phone Lakshmi Flor MD Primary Care Provider Unavailab Airam Weinstein AUTO PORTER Primary Care Provider Unav ailable Won Faustin MD Primary Care Provider [phone] Elin Chau AUTO PORTER Primary Care Provider [phone] Encounter Details Date Type Department Care Team (Late Contact Info) Description 10/31/2014 Abstract SJB CONVERSION [address] [place] [address] , Generic ConversionMD Social History Tobacco Use [...] Description 03/24/2025 8:40 AM CDT Office Visit [facility] Medical [facility] Multispecialty Care - [facility] 3 [facility], [address] [place] [address] Gildardo Chao MD [address] [place] [address] 03/30/2025 2:15 PM CDT [facility] [address] [place] [address] Marquis Salmeron MD Three [facility]. [address] [place] [address] 05/18/2025 1:20 PM VACCINATOR Office Visit [facility] Medical Group Multispecialty Care - [facility] 3 [facility], [address] [place] [address] Gildardo Chao MD [address] [place] [address] documented as of this encounter Visit Diagnoses Not on filedocumented in this encounter Additional Health Concerns Infection Onset Date Last Indicated Resolved Time COVID-19 Rule Out 06/07/2021 06/07/2021 06/07/2021 11:27 AM VACCINATOR COVID-19 Confirmed 06/07/2021 06/07/2021 12:32 AM VACCINATOR COVID-19 Rule Out 08/07/2023 08/07/2023 08/07/2023 9:37 AM VACCINATOR Influenza - Seasonal 08/07/2023 08/07/2023 024 12:33 AM VACCINATOR COVID-19 Rule Out 08/07/2023 08/07/2023 08/07/2023 12:46 PM VACCINATOR Respiratory Rule Out 11/23/2024 11/23/2024 025 7:34 PM CDT COVID-19 Rule Out 11/23/2024 11/23/2024 11/23/2024 7:33 PM CDT documented as of this encounter Care Teams Mechanical Applications Engineer Relationship Specialty Start Date End Date Lakshmi Flor MD PCP - General INTERNAL MEDICINE 09/27/17 03/18/20 Airam Daniel NP PCP - General NURSE PRACTITIONER 03/19/20 05/16/21 [place] [address] [place] [address] PCP - General FAMILY PRACTICE 05/17/21 03/18/24 Elin Chau NP [address] [place] [address] PCP - General NURSE PRACTITIONER 03/19/24 documented as of this encounter
--- OUTSIDE RECORDS SUMMARY | 2025-01-30 13:43 | XMS_ITS | Encounter Summary ---
Author Organization [facility] Address [address] [place] [address] Care Team Providers Care Program Support Clerk Name Role Phone Lakshmi Flor MD Primary Care Provider Unavailab Airam Weinstein CALENDER MACHINE OPERATOR Primary Care Provider Unav ailable Won Faustin MD Primary Care Provider [phone] Elin Chau CALENDER MACHINE OPERATOR Primary Care Provider [phone] Encounter Details Date Type Department Care Team (Late Contact Info) Description 11/22/2016 Abstract SJB CONVERSION [address] [place] [address] , Generic ConversionMD Social History Tobacco Use [...] Description 03/24/2025 8:40 AM CDT Office Visit [facility] Medical Group Multispecialty Care - [facility] 3 [facility], [address] [place] [address] Gildardo Chao MD [address] [place] [address] 03/30/2025 2:15 PM CDT [facility] [address] [place] [address] Marquis Salmeron MD Three [facility]. [address] [place] [address] 05/18/2025 1:20 PM GAS LOAD DISPATCHER Office Visit [facility] Medical Group Multispecialty Care - [facility] 3 [facility], [address] [place] [address] Gildardo Chao MD [address] [place] [address] documented as of this encounter Visit Diagnoses Not on filedocumented in this encounter Additional Health Concerns Infection Onset Date Last Indicated Resolved Time COVID-19 Rule Out 06/07/2021 06/07/2021 06/07/2021 11:27 AM GAS LOAD DISPATCHER COVID-19 Confirmed 06/07/2021 06/07/2021 12:32 AM GAS LOAD DISPATCHER COVID-19 Rule Out 08/07/2023 08/07/2023 08/07/2023 9:37 AM GAS LOAD DISPATCHER Influenza - Seasonal 08/07/2023 08/07/2023 024 12:33 AM GAS LOAD DISPATCHER COVID-19 Rule Out 08/07/2023 08/07/2023 08/07/2023 12:46 PM GAS LOAD DISPATCHER Respiratory Rule Out 11/23/2024 11/23/2024 025 7:34 PM CDT COVID-19 Rule Out 11/23/2024 11/23/2024 11/23/2024 7:33 PM CDT documented as of this encounter Care Teams Program Support Clerk Relationship Specialty Start Date End Date Lakshmi Flor MD PCP - General INTERNAL MEDICINE 09/27/17 03/18/20 Airam Daniel NP PCP - General NURSE PRACTITIONER 03/19/20 05/16/21 [place] [address] [place] [address] PCP - General FAMILY PRACTICE 05/17/21 03/18/24 Elin Chau NP [address] [place] [address] PCP - General NURSE PRACTITIONER 03/19/24 documented as of this encounter
--- OUTSIDE RECORDS SUMMARY | 2025-01-30 13:43 | XMS_ITS | Referral Summary ---
Author Organization [facility] Address [address] [place] [address] Care Team Providers Care Sofa Inspector Name Role Phone Unknown, Notinfile Primary Care [...] 06/02/2024 Assessment & Plan (06/02/2024 11:51 AM MUSCULOSKELETAL PHYSICIAN): No papilledema on multiple exams, HVF and [...] on file Legal Sex Female 4:24 AM MUSCULOSKELETAL PHYSICIAN Gender Identity Not on file Sexual Orientation Not on file Last Filed Vital Signs Vital Sign Reading Time Taken Comments Blood Pressure 128/95 05/28/2024 3:31 PM MUSCULOSKELETAL PHYSICIAN Pulse 70 05/28/2024 3:31 PM MUSCULOSKELETAL PHYSICIAN Temperature 36.7 C (98.1 F) 05/28/2024 11:51 AM MUSCULOSKELETAL PHYSICIAN Respiratory Rate 16 05/28/2024 3:31 PM MUSCULOSKELETAL PHYSICIAN Oxygen Saturation 99% 05/28/2024 3:31 PM MUSCULOSKELETAL PHYSICIAN Inhaled Oxygen Concentration - - Weight 104.3 kg (229 lb 15 oz) 05/28/2024 11:51 AM MUSCULOSKELETAL PHYSICIAN Height 165.1 cm (5' 5) 05/28/2024 11:51 AM MUSCULOSKELETAL PHYSICIAN Body Mass Index 38.26 05/28/2024 11:51 AM MUSCULOSKELETAL PHYSICIAN Plan of Treatment Not on file Insurance Care Teams Sofa Inspector Relationship Specialty Start Date End Date Unknown, Notinfile PCP - General 05/22/24
--- OUTSIDE RECORDS SUMMARY | 2025-01-30 13:43 | XMS_ITS | Clinical Summary ---
Author Organization [facility] Address [address] [place] [address] Care Team Providers Care Armhole Sewer Name Role Phone Unknown, Notinfile Primary Care [...] 06/02/2024 Assessment & Plan (06/02/2024 11:51 AM GOLF CLUB REPAIRER): No papilledema on multiple exams, HVF and [...] on file Legal Sex Female 4:24 AM GOLF CLUB REPAIRER Gender Identity Not on file Sexual Orientation Not on file Obstetrics History Last Filed Vital Signs Vital Sign Reading Time Taken Comments Blood Pressure 128/95 05/28/2024 3:31 PM GOLF CLUB REPAIRER Pulse 70 05/28/2024 3:31 PM GOLF CLUB REPAIRER Temperature 36.7 C (98.1 F) 05/28/2024 11:51 AM GOLF CLUB REPAIRER Respiratory Rate 16 05/28/2024 3:31 PM GOLF CLUB REPAIRER Oxygen Saturation 99% 05/28/2024 3:31 PM GOLF CLUB REPAIRER Inhaled Oxygen Concentration - - Weight 104.3 kg (229 lb 15 oz) 05/28/2024 11:51 AM GOLF CLUB REPAIRER Height 165.1 cm (5' 5) 05/28/2024 11:51 AM GOLF CLUB REPAIRER Body Mass Index 38.26 05/28/2024 11:51 AM GOLF CLUB REPAIRER Plan of Treatment Health Maintenance Due Date [...] patient's age to complete this topic Insurance [facility] [address] Care Teams Armhole Sewer Relationship Specialty Start Date End Date Unknown, Notinfile PCP - General 05/22/24
--- OUTSIDE RECORDS SUMMARY | 2025-01-30 13:43 | XMS_ITS | Encounter Summary ---
Author Organization [facility] Address Critical access hospital[address] [place] [address] Care Team Providers Care Arc Cutter Plasma Arc Name Role Phone Won Faustin MD Primary Care Provider [phone] Elin Chau NP Primary Care Provider [phone] Encounter Details Date Type Department Care Team ([facility] Contact Info) Description 06/07/2021 Atheer Labst Message Enc [facility] Medical Group Family & Internal Medicine [facility] [id number] [place] [phone] Won Faustin MD [address] [place] [address] Medication refill Social History Tobacco Use Types Packs/Day Years [...] or suspected to have Coronavirus / COVID-19? Yes 06/07/2021 10:32 AM INSPECTOR RAG SORTING documented as of this encounter Functional Status [...] 04/08/2020 11:13 AM Barbara Hancock RN Active * Do you have difficulty dressing or bathing? Answer Date of Assessment Author Status No 04/08/2020 11:13 AM Barbara Hancock RN Active * Because of a physical, mental, or emotional condition, do you have difficulty doing errands alone such as visiting a doctor's office or shopping? Answer Date of Assessment Author Status No 04/08/2020 11:13 AM Barbara Hancock RN Active * Calculated C-SSRS Risk Score (Lifetime/Recent) Answer Date of Assessment Author Status No Risk Indicated 06/07/2021 10:57 AM Jen Arias RN Active * [place] Suicide Severity Rating Scale (Screener/Recent Self-Report) Question Answer Date of Assessment Author Status 1. Wish to be (Past 1 Month) No 06/07/2021 10:57 AM Марина Arias RN A ctive 2. Non-Specific Active Suicidal Thoughts (Past 1 Month) No 06/07/2021 10:57 AM Марина Arias RN A ctive 6. Suicidal Behavior (Lifetime) No 06/07/2021 10:57 AM Марина Arias RN A ctive documented as of this encounter Mental Status [...] Description 03/24/2025 8:40 AM CDT Office Visit [facility] 3 [facility], [address] [place] [address] Gildardo Chao MD [address] [place] [address] 03/30/2025 2:15 PM CDT Office Visit [facility] [address] [place] [address] Marquis Salmeron MD Three [facility]. [address] [facility] [place] [address] 05/18/2025 1:20 PM INSPECTOR RAG SORTING Office Visit [facility] 3 [facility], [address] [place] [address] Gildardo Chao MD [address] [place] [address] documented as of this encounter Visit Diagnoses Not on filedocumented in this encounter Additional Health Concerns Infection Onset Date Last Indicated Resolved Time COVID-19 Rule Out 06/07/2021 06/07/2021 06/07/2021 11:27 AM INSPECTOR RAG SORTING COVID-19 Confirmed 06/07/2021 06/07/2021 12:32 AM INSPECTOR RAG SORTING COVID-19 Rule Out 08/07/2023 08/07/2023 08/07/2023 9:37 AM INSPECTOR RAG SORTING Influenza - Seasonal 08/07/2023 08/07/2023 024 12:33 AM INSPECTOR RAG SORTING COVID-19 Rule Out 08/07/2023 08/07/2023 08/07/2023 12:46 PM INSPECTOR RAG SORTING Respiratory Rule Out 11/23/2024 11/23/2024 025 7:34 PM CDT COVID-19 Rule Out 11/23/2024 11/23/2024 11/23/2024 7:33 PM CDT documented as of this encounter Care Teams Arc Cutter Plasma Arc Relationship Specialty [place] [address] [place] [address] PCP - General FAMILY PRACTICE 05/17/21 03/18/24 Elin Chau NP [address] [place] [address] PCP - General NURSE PRACTITIONER 03/19/24 documented as of this encounter
--- OUTSIDE RECORDS SUMMARY | 2025-01-30 13:43 | XMS_ITS | Encounter Summary ---
Author Organization [facility] Address [address] [place] [address] Care Team Providers Care Magazine Hand Name Role Phone Lakshmi Flor MD Primary Care Provider Unavailab Airam Weinstein MARINE EQUIPMENT ENGINEER Primary Care Provider Unav ailable Won Faustin MD Primary Care Provider [phone] Elin Chau MARINE EQUIPMENT ENGINEER Primary Care Provider [phone] Encounter Details Date Type Department Care Team (Late Contact Info) Description 11/15/2016 Abstract SJB CONVERSION [address] [place] [address] , Generic ConversionMD Social History Tobacco Use [...] Description 03/24/2025 8:40 AM CDT Office Visit [facility] Medical Group Multispecialty Care - [facility] 3 [facility], [address] [place] [address] Gildardo Chao MD [address] [place] [address] 03/30/2025 2:15 PM CDT [facility] [address] [place] [address] Marquis Salmeron MD Three [facility]. [address] [place] [address] 05/18/2025 1:20 PM AUTOMATIC ENGRAVER Office Visit [facility] Medical Group Multispecialty Care - [facility] 3 [facility], [address] [place] [address] Gildardo Chao MD [address] [place] [address] documented as of this encounter Visit Diagnoses Not on filedocumented in this encounter Additional Health Concerns Infection Onset Date Last Indicated Resolved Time COVID-19 Rule Out 06/07/2021 06/07/2021 06/07/2021 11:27 AM AUTOMATIC ENGRAVER COVID-19 Confirmed 06/07/2021 06/07/2021 12:32 AM AUTOMATIC ENGRAVER COVID-19 Rule Out 08/07/2023 08/07/2023 08/07/2023 9:37 AM AUTOMATIC ENGRAVER Influenza - Seasonal 08/07/2023 08/07/2023 024 12:33 AM AUTOMATIC ENGRAVER COVID-19 Rule Out 08/07/2023 08/07/2023 08/07/2023 12:46 PM AUTOMATIC ENGRAVER Respiratory Rule Out 11/23/2024 11/23/2024 025 7:34 PM CDT COVID-19 Rule Out 11/23/2024 11/23/2024 11/23/2024 7:33 PM CDT documented as of this encounter Care Teams Magazine Hand Relationship Specialty Start Date End Date Lakshmi Flor MD PCP - General INTERNAL MEDICINE 09/27/17 03/18/20 Airam Daniel NP PCP - General NURSE PRACTITIONER 03/19/20 05/16/21 [place] [address] [place] [address] PCP - General FAMILY PRACTICE 05/17/21 03/18/24 Elin Chau NP [address] [place] [address] PCP - General NURSE PRACTITIONER 03/19/24 documented as of this encounter
--- OUTSIDE RECORDS SUMMARY | 2025-01-30 13:43 | XMS_ITS | Encounter Summary ---
Author Organization [facility] Address [address] [place] [address] Care Team Providers Care Customer Service Assistant Name Role Phone Lakshmi Flor MD Primary Care Provider Unavailab Airam Weinstein AUTISM SPECIALIST Primary Care Provider Unav ailable Won Faustin MD Primary Care Provider [phone] Elin Chau AUTISM SPECIALIST Primary Care Provider [phone] Encounter Details Date Type Department Care Team (Late Contact Info) Description 07/28/2016 Abstract [facility] CONVERSION [address] [place] [address] , Generic ConversionMD Social History Tobacco Use [...] MEDICAL CENTER Medical Group Multispecialty Care - [facility] 3 [facility], [address] [place] [address] Gildardo Chao MD [address] [place] [address] 03/30/2025 2:15 PM CDT [facility] [address] [place] [address] Marquis Salmeron MD Three [facility]. [address] [place] [address] 05/18/2025 1:20 PM TAKER OFF DRYING KILN Office Visit [facility] Medical Group Multispecialty Care - [facility] 3 [facility], [address] [place] [address] Gildardo Chao MD [address] [place] [address] documented as of this encounter Visit Diagnoses Not on filedocumented in this encounter Additional Health Concerns Infection Onset Date Last Indicated Resolved Time COVID-19 Rule Out 06/07/2021 06/07/2021 06/07/2021 11:27 AM TAKER OFF DRYING KILN COVID-19 Confirmed 06/07/2021 06/07/2021 12:32 AM TAKER OFF DRYING KILN COVID-19 Rule Out 08/07/2023 08/07/2023 08/07/2023 9:37 AM TAKER OFF DRYING KILN Influenza - Seasonal 08/07/2023 08/07/2023 024 12:33 AM TAKER OFF DRYING KILN COVID-19 Rule Out 08/07/2023 08/07/2023 08/07/2023 12:46 PM TAKER OFF DRYING KILN Respiratory Rule Out 11/23/2024 11/23/2024 025 7:34 PM CDT COVID-19 Rule Out 11/23/2024 11/23/2024 11/23/2024 7:33 PM CDT documented as of this encounter Care Teams Customer Service Assistant Relationship Specialty Start Date End Date Lakshmi Flor MD PCP - General INTERNAL MEDICINE 09/27/17 03/18/20 Airam Daniel NP PCP - General NURSE PRACTITIONER 03/19/20 05/16/21 [place] [address] [place] [address] PCP - General FAMILY PRACTICE 05/17/21 03/18/24 Elin Chau NP [address] [place] [address] PCP - General NURSE PRACTITIONER 03/19/24 documented as of this encounter
[2025-01-30 13:47] VITALS: BP 147/99; PULSE 78; RESP 16; TEMP 36.6; O2SAT 100
--- NOTE | 2025-01-30 17:01 | PC.NURSE ---
Pt called at 1620 and 165, no answer.
--- OUTSIDE RECORDS SUMMARY | 2025-01-30 18:44 | XMS_ITS | Encounter Summary ---
Author Organization [facility] Address [facility] [place] [address] Care Team Providers Care Professional Caster Name Role Phone Airam Daniel NP Primary Care Provider Unav ailable Won Faustin MD Primary Care Provider [phone] Elin Chau NP Primary Care Provider [phone] Encounter Details Date Type Department Care Team (Late st Contact Info) Description 02/15/2021 UFOstart AGt Message Enc [facility] Medical Group Family & Internal Medicine [address] [address] Airam Daniel NP RE: Question [...] Description 03/24/2025 8:40 AM CDT Office Visit [facility] - [facility] 3 [facility], [address] [place] [address] Gildardo Chao MD [address] [place] [address] 03/30/2025 2:15 PM CDT Office Visit [facility] [address] [place] [address] Marquis Salmeron MD Three [facility]. [address] [place] [address] 05/18/2025 1:20 PM DENTAL SERVICE CHIEF Office Visit [facility] - [facility] 3 [facility], [address] [place] [address] Gildardo Chao MD [address] [place] [address] documented as of this encounter Visit Diagnoses Not on filedocumented in this encounter Additional Health Concerns Infection Onset Date Last Indicated Resolved Time COVID-19 Rule Out 06/07/2021 06/07/2021 06/07/2021 11:27 AM DENTAL SERVICE CHIEF COVID-19 Confirmed 06/07/2021 06/07/2021 12:32 AM DENTAL SERVICE CHIEF COVID-19 Rule Out 08/07/2023 08/07/2023 08/07/2023 9:37 AM DENTAL SERVICE CHIEF Influenza - Seasonal 08/07/2023 08/07/2023 024 12:33 AM DENTAL SERVICE CHIEF COVID-19 Rule Out 08/07/2023 08/07/2023 08/07/2023 12:46 PM DENTAL SERVICE CHIEF Respiratory Rule Out 11/23/2024 11/23/2024 025 7:34 PM CDT COVID-19 Rule Out 11/23/2024 11/23/2024 11/23/2024 7:33 PM CDT documented as of this encounter Care Teams Professional Caster Relationship Specialty Start Date End Date Airam Daniel NP PCP - General NURSE PRACTITIONER 03/19/20 05/16/21 [place] [address] [place] [address] PCP - General FAMILY PRACTICE 05/17/21 03/18/24 Elin Chau NP [address] [place] [address] PCP - General NURSE PRACTITIONER 03/19/24 documented as of this encounter
--- OUTSIDE RECORDS SUMMARY | 2025-01-30 18:44 | XMS_ITS | Encounter Summary ---
Author Organization [facility] Address [address] [place] [address] Care Team Providers Care Rickshaw Driver Name Role Phone Lakshmi Flor MD Primary Care Provider Unavailab Airam Weinstein VC++ DEVELOPER Primary Care Provider Unav ailable Won Faustin MD Primary Care Provider [phone] Elin Chau VC++ DEVELOPER Primary Care Provider [phone] Encounter Details Date Type Department Care Team (Late Contact Info) Description 11/12/2014 Abstract [facility] CONVERSION [address] [place] [address] , Generic ConversionMD Social History Tobacco Use [...] Description 03/24/2025 8:40 AM CDT Office Visit [facility] Medical Group Multispecialty Care - [facility] 3 [facility], [address] [place] [address] Gildardo Chao MD [address] [place] [address] 03/30/2025 2:15 PM CDT [facility] [address] [place] [address] Marquis Salmeron MD Three [facility]. [address] [place] [address] 05/18/2025 1:20 PM TIGHT ROPE WALKER Office Visit [facility] Medical Group Multispecialty Care - [facility] 3 [facility], [address] [place] [address] Gildardo Chao MD [address] [place] [address] documented as of this encounter Visit Diagnoses Not on filedocumented in this encounter Additional Health Concerns Infection Onset Date Last Indicated Resolved Time COVID-19 Rule Out 06/07/2021 06/07/2021 06/07/2021 11:27 AM TIGHT ROPE WALKER COVID-19 Confirmed 06/07/2021 06/07/2021 12:32 AM TIGHT ROPE WALKER COVID-19 Rule Out 08/07/2023 08/07/2023 08/07/2023 9:37 AM TIGHT ROPE WALKER Influenza - Seasonal 08/07/2023 08/07/2023 024 12:33 AM TIGHT ROPE WALKER COVID-19 Rule Out 08/07/2023 08/07/2023 08/07/2023 12:46 PM TIGHT ROPE WALKER Respiratory Rule Out 11/23/2024 11/23/2024 025 7:34 PM CDT COVID-19 Rule Out 11/23/2024 11/23/2024 11/23/2024 7:33 PM CDT documented as of this encounter Care Teams Rickshaw Driver Relationship Specialty Start Date End Date Lakshmi Flor MD PCP - General INTERNAL MEDICINE 09/27/17 03/18/20 Airam Daniel NP PCP - General NURSE PRACTITIONER 03/19/20 05/16/21 [place] [address] [place] [address] PCP - General FAMILY PRACTICE 05/17/21 03/18/24 Elin Chau NP [address] [place] [address] PCP - General NURSE PRACTITIONER 03/19/24 documented as of this encounter
--- OUTSIDE RECORDS SUMMARY | 2025-01-30 18:44 | XMS_ITS | Clinical Summary ---
Author Organization [facility] Address [address] [place] [address] Care Team Providers Care Commercial Counsel Name Role Phone Unknown, Notinfile Primary Care [...] 06/02/2024 Assessment & Plan (06/02/2024 11:51 AM EXPERIMENTAL ROCKETSLED MECHANIC): No papilledema on multiple exams, HVF and [...] on file Legal Sex Female 4:24 AM EXPERIMENTAL ROCKETSLED MECHANIC Gender Identity Not on file Sexual Orientation Not on file Obstetrics History Last Filed Vital Signs Vital Sign Reading Time Taken Comments Blood Pressure 128/95 05/28/2024 3:31 PM EXPERIMENTAL ROCKETSLED MECHANIC Pulse 70 05/28/2024 3:31 PM EXPERIMENTAL ROCKETSLED MECHANIC Temperature 36.7 C (98.1 F) 05/28/2024 11:51 AM EXPERIMENTAL ROCKETSLED MECHANIC Respiratory Rate 16 05/28/2024 3:31 PM EXPERIMENTAL ROCKETSLED MECHANIC Oxygen Saturation 99% 05/28/2024 3:31 PM EXPERIMENTAL ROCKETSLED MECHANIC Inhaled Oxygen Concentration - - Weight 104.3 kg (229 lb 15 oz) 05/28/2024 11:51 AM EXPERIMENTAL ROCKETSLED MECHANIC Height 165.1 cm (5' 5) 05/28/2024 11:51 AM EXPERIMENTAL ROCKETSLED MECHANIC Body Mass Index 38.26 05/28/2024 11:51 AM EXPERIMENTAL ROCKETSLED MECHANIC Plan of Treatment Health Maintenance Due Date [...] patient's age to complete this topic Insurance [facility] [address] Care Teams Commercial Counsel Relationship Specialty Start Date End Date Unknown, Notinfile PCP - General 05/22/24
--- OUTSIDE RECORDS SUMMARY | 2025-01-30 18:44 | XMS_ITS | Referral Summary ---
Author Organization [facility] Address [address] [place] [address] Care Team Providers Care Bill Cutter Name Role Phone Unknown, Notinfile Primary Care [...] 06/02/2024 Assessment & Plan (06/02/2024 11:51 AM BROACHING MACHINE REPAIRER): No papilledema on multiple exams, HVF [...] on file Legal Sex Female 4:24 AM BROACHING MACHINE REPAIRER Gender Identity Not on file Sexual Orientation Not on file Last Filed Vital Signs Vital Sign Reading Time Taken Comments Blood Pressure 128/95 05/28/2024 3:31 PM BROACHING MACHINE REPAIRER Pulse 70 05/28/2024 3:31 PM BROACHING MACHINE REPAIRER Temperature 36.7 C (98.1 F) 05/28/2024 11:51 AM BROACHING MACHINE REPAIRER Respiratory Rate 16 05/28/2024 3:31 PM BROACHING MACHINE REPAIRER Oxygen Saturation 99% 05/28/2024 3:31 PM BROACHING MACHINE REPAIRER Inhaled Oxygen Concentration - - Weight 104.3 kg (229 lb 15 oz) 05/28/2024 11:51 AM BROACHING MACHINE REPAIRER Height 165.1 cm (5' 5) 05/28/2024 11:51 AM BROACHING MACHINE REPAIRER Body Mass Index 38.26 05/28/2024 11:51 AM BROACHING MACHINE REPAIRER Plan of Treatment Not on file Insurance Care Teams Bill Cutter Relationship Specialty Start Date End Date Unknown, Notinfile PCP - General 05/22/24
--- OUTSIDE RECORDS SUMMARY | 2025-01-30 18:44 | XMS_ITS | Encounter Summary ---
Author Organization [facility] Address [address] [place] [address] Care Team Providers Care Media Relations Intern Name Role Phone Lakshmi Flor MD Primary Care Provider Unavailab Airam Weinstein AWNING HANGER Primary Care Provider Unav ailable Won Faustin MD Primary Care Provider [phone] Elin Chau AWNING HANGER Primary Care Provider [phone] Encounter Details Date Type Department Care Team (Late Contact Info) Description 11/15/2016 Abstract SJB CONVERSION [address] [place] [address] , Generic ConversionMD Social History Tobacco Use [...] Description 03/24/2025 8:40 AM CDT Office Visit [facility] Multispecialty Care - [facility] [address] [facility], [address] [place] [phone] Gildardo Chao MD [address] [place] [address] 03/30/2025 2:15 PM CDT [facility] [address] [place] [phone] Marquis Salmeron MD Three [facility]. [address] [place] [address] 05/18/2025 1:20 PM DIRECTOR OF PROFESSIONAL SERVICES Office Visit [facility] Multispecialty Care - [facility] [address] [facility], [address] [place] [phone] Gildardo Chao MD [address] [place] [address] documented as of this encounter Visit Diagnoses Not on filedocumented in this encounter Additional Health Concerns Infection Onset Date Last Indicated Resolved Time COVID-19 Rule Out 06/07/2021 06/07/2021 06/07/2021 11:27 AM DIRECTOR OF PROFESSIONAL SERVICES COVID-19 Confirmed 06/07/2021 06/07/2021 12:32 AM DIRECTOR OF PROFESSIONAL SERVICES COVID-19 Rule Out 08/07/2023 08/07/2023 08/07/2023 9:37 AM DIRECTOR OF PROFESSIONAL SERVICES Influenza - Seasonal 08/07/2023 08/07/2023 024 12:33 AM DIRECTOR OF PROFESSIONAL SERVICES COVID-19 Rule Out 08/07/2023 08/07/2023 08/07/2023 12:46 PM DIRECTOR OF PROFESSIONAL SERVICES Respiratory Rule Out 11/23/2024 11/23/2024 025 7:34 PM CDT COVID-19 Rule Out 11/23/2024 11/23/2024 11/23/2024 7:33 PM CDT documented as of this encounter Care Teams Media Relations Intern Relationship Specialty Start Date End Date Lakshmi Flor MD PCP - General INTERNAL MEDICINE 09/27/17 03/18/20 Airam Daniel NP PCP - General NURSE PRACTITIONER 03/19/20 05/16/21 [place] [address] [place] [address] PCP - General FAMILY PRACTICE 05/17/21 03/18/24 Elin Chau NP [address] [place] [address] PCP - General NURSE PRACTITIONER 03/19/24 documented as of this encounter
--- OUTSIDE RECORDS SUMMARY | 2025-01-30 18:44 | XMS_ITS | Encounter Summary ---
Author Organization [facility] Address [facility] [place] [address] Care Team Providers Care Rn Ent Name Role Phone Airam Daniel NP Primary Care Provider Unav ailable Won Faustin MD Primary Care Provider [phone] Elin Chau NP Primary Care Provider [phone] Encounter Details Date Type Department Care Team (Late st Contact Info) Description 11/28/2020 [email or web address] Message Enc [facility] Family & Internal Medicine [address] [address] Airam Daniel NP RE: Question [...] Description 03/24/2025 8:40 AM CDT Office Visit [facility] [address] [facility], [address] [place] [address] Gildardo Chao MD [address] [place] [address] 03/30/2025 2:15 PM CDT Office Visit [facility] [address] [place] [phone] Marquis Salmeron MD Three [facility]. [address] [place] [address] 05/18/2025 1:20 PM WATERPROOF BAG SEWER Office Visit [facility] [address] [facility], [address] [place] [phone] Gildardo Chao MD [address] [place] [address] documented as of this encounter Visit Diagnoses Not on filedocumented in this encounter Additional Health Concerns Infection Onset Date Last Indicated Resolved Time COVID-19 Rule Out 06/07/2021 06/07/2021 06/07/2021 11:27 AM WATERPROOF BAG SEWER COVID-19 Confirmed 06/07/2021 06/07/2021 12:32 AM WATERPROOF BAG SEWER COVID-19 Rule Out 08/07/2023 08/07/2023 08/07/2023 9:37 AM WATERPROOF BAG SEWER Influenza - Seasonal 08/07/2023 08/07/20232 024 12:33 AM WATERPROOF BAG SEWER COVID-19 Rule Out 08/07/2023 08/07/2023 08/07/2023 12:46 PM WATERPROOF BAG SEWER Respiratory Rule Out 11/23/2024 11/23/2024 025 7:34 PM CDT COVID-19 Rule Out 11/23/2024 11/23/2024 11/23/2024 7:33 PM CDT documented as of this encounter Care Teams Rn Ent Relationship Specialty Start Date End Date Airam Daniel NP PCP - General NURSE PRACTITIONER 03/19/20 05/16/21 [place] [address] [place] [address] PCP - General FAMILY PRACTICE 05/17/21 03/18/24 Elin Chau NP [address] [place] [address] PCP - General NURSE PRACTITIONER 03/19/24 documented as of this encounter
--- OUTSIDE RECORDS SUMMARY | 2025-01-30 18:44 | XMS_ITS | Encounter Summary ---
Author Organization [facility] Address [address] [place] [address] Care Team Providers Care Unscrambler Name Role Phone Lakshmi Flor MD Primary Care Provider Unavailab Airam Weinstein WEB FEEDER Primary Care Provider Unav ailable Won Faustin MD Primary Care Provider [phone] Elin Chau WEB FEEDER Primary Care Provider [phone] Encounter Details Date Type Department Care Team (Late Contact Info) Description 12/09/2014 Abstract SJB CONVERSION [address] [place] [address] , Generic ConversionMD Social History Tobacco Use [...] Description 03/24/2025 8:40 AM CDT Office Visit [facility] [place] [facility]ialty Care - [facility] [address] [facility], [address] [place] [address] Gildardo Chao MD [address] [place] [address] 03/30/2025 2:15 PM CDT [facility] [address] [place] [phone] Marquis Salmeron MD Three [facility]. [address] [place] [address] 05/18/2025 1:20 PM SIGNAL CIRCUIT DESIGNER Office Visit [facility] Multispecialty Care - [facility] [address] [facility], [address] [place] [phone] Gildardo Chao MD [address] [place] [address] documented as of this encounter Visit Diagnoses Not on filedocumented in this encounter Additional Health Concerns Infection Onset Date Last Indicated Resolved Time COVID-19 Rule Out 06/07/2021 06/07/2021 06/07/2021 11:27 AM SIGNAL CIRCUIT DESIGNER COVID-19 Confirmed 06/07/2021 06/07/2021 12:32 AM SIGNAL CIRCUIT DESIGNER COVID-19 Rule Out 08/07/2023 08/07/2023 08/07/2023 9:37 AM SIGNAL CIRCUIT DESIGNER Influenza - Seasonal 08/07/2023 08/07/2023 024 12:33 AM SIGNAL CIRCUIT DESIGNER COVID-19 Rule Out 08/07/2023 08/07/2023 08/07/2023 12:46 PM SIGNAL CIRCUIT DESIGNER Respiratory Rule Out 11/23/2024 11/23/2024 025 7:34 PM CDT COVID-19 Rule Out 11/23/2024 11/23/2024 11/23/2024 7:33 PM CDT documented as of this encounter Care Teams Unscrambler Relationship Specialty Start Date End Date Lakshmi Flor MD PCP - General INTERNAL MEDICINE 09/27/17 03/18/20 Airam Daniel NP PCP - General NURSE PRACTITIONER 03/19/20 05/16/21 [place] [address] [place] [address] PCP - General FAMILY PRACTICE 05/17/21 03/18/24 Elin Chau NP [address] [place] [address] PCP - General NURSE PRACTITIONER 03/19/24 documented as of this encounter
--- OUTSIDE RECORDS SUMMARY | 2025-01-30 18:44 | XMS_ITS | Encounter Summary ---
Author Organization [facility] Address [facility] [place] [address] Care Team Providers Care Mechanical Engineering Draftsperson Name Role Phone Airam Daniel NP Primary Care Provider Unav ailable Won Faustin MD Primary Care Provider [phone] Elin Chau NP Primary Care Provider [phone] Encounter Details Date Type Department Care Team (Late st Contact Info) Description 11/24/2020 [employer] Message Enc [facility] Family & Internal Medicine [address] [address] Airam Daniel NP RE: Medication [...] Description 03/24/2025 8:40 AM CDT Office Visit [facility] Multispecialty Care - [facility] [address] [facility], [address] [place] [phone] Gildardo Chao MD [address] [place] [address] 03/30/2025 2:15 PM CDT [facility] [address] [place] [address] Marquis Salmeron MD Three [facility]. [address] [place] [address] 05/18/2025 1:20 PM TIEDOWN OPERATOR Office Visit [facility] Multispecialty Care - [facility] [address] [facility], [address] [place] [address] Gildardo Chao MD [address] [place] [address] documented as of this encounter Visit Diagnoses Not on filedocumented in this encounter Additional Health Concerns Infection Onset Date Last Indicated Resolved Time COVID-19 Rule Out 06/07/2021 06/07/2021 06/07/2021 11:27 AM TIEDOWN OPERATOR COVID-19 Confirmed 06/07/2021 06/07/2021 12:32 AM TIEDOWN OPERATOR COVID-19 Rule Out 08/07/2023 08/07/2023 08/07/2023 9:37 AM TIEDOWN OPERATOR Influenza - Seasonal 08/07/2023 08/07/2023 024 12:33 AM TIEDOWN OPERATOR COVID-19 Rule Out 08/07/2023 08/07/2023 08/07/2023 12:46 PM TIEDOWN OPERATOR Respiratory Rule Out 11/23/2024 11/23/2024 025 7:34 PM CDT COVID-19 Rule Out 11/23/2024 11/23/2024 11/23/2024 7:33 PM CDT documented as of this encounter Care Teams Mechanical Engineering Draftsperson Relationship Specialty Start Date End Date Airam Daniel NP PCP - General NURSE PRACTITIONER 03/19/20 05/16/21 [place] [address] [place] [address] PCP - General FAMILY PRACTICE 05/17/21 03/18/24 Elin Chau NP [address] [place] [address] PCP - General NURSE PRACTITIONER 03/19/24 documented as of this encounter
--- OUTSIDE RECORDS SUMMARY | 2025-01-30 18:44 | XMS_ITS | Clinical Summary ---
Author Organization [facility] Address [address] [place] [address] Care Team Providers Care Dental Patient Coordinator Name Role Phone Kandi Elin FRANKLIN Primary Care Provider [phone] Allergies Active Allergy Reactions Criticality Noted Date [...] Noted Date Diagnosed Date Pelvic pain 08/12/2021 ([facility]/HCC) 04/08/2020 Acute left ankle pain 03/10/2019 Acute cystitis without hematuria 02/27/2019 Assessment & Plan (02/27/2019 9:27 AM CDT): Positive dip stick. Will treat with nitrofurantoin. Will call if not sensitive and need to change. Otherwise she will call if no improvement Chronic tension-type headache, not intractable 1 07/27/2017 Assessment & Plan (05/27/2018 12:57 PM LEPIDOPTERIST): Suspect some medication over use contributing. She is already on topamax Stop taking tylenol and drinking caffeine and may have worsening fo headache for next 48 hrs but then should improve Osteochondral defect of ankle 10/03/2017 Essential hypertension 03/12/2017 Assessment & Plan (05/27/2018 12:58 PM LEPIDOPTERIST): Currently controlled off HCTZ. Check BP at home and call if > 140/100 consistently Depression 07/05/2016 Overview (05/11/2018): Description: Soha Marshall is her psychiatrist. Assessment & Plan (05/27/2018 12:58 PM LEPIDOPTERIST): Stable. Managed by psychiatrist Psychogenic nonepileptic seizure 07/05/2016 Syncope 01/23/2013 Anxiety Encounters Date Type Department Care Team Description 01/07/2025 7:34 PM CDT - 01/07/2025 9:[address] [facility] [address] [place] [address] Ced Douglas MD Skin Problem Discharge Disposition: Home or Self Care (Routine Discharge) 01/07/2025 Travel 12/22/2024 7:20 AM CDT Office Visit [facility] Medical [facility] Multispecialty Care - [facility] [address], [address] [place] [phone] Gildardo Chao MD Follow Up (Pseudotumor cerebri); Headache (Migraine days per week: 2-3) 12/22/2024 Travel 12/15/2024 MyChart Message Enc [facility] Medical [facility] Multispecialty Care - [facility] [address], [address] [place] [address] Tara, [facility] Provider Results 12/10/2024 11:00 AM CDT - 12/10/2024 11:59 PM CDT Hospital Encounter [facility] Open MRI [address] [place] [address] Gildardo Chao MD Discharge Disposition: Home or Self Care (Routine Discharge) 12/10/2024 Travel 11/23/2024 6:32 PM CDT - 11/23/2024 9:[address] [facility] Emergency Room [address] [place] [address] Yolie Simpson MD Flu Like Symptoms Discharge Disposition: Home or Self Care (Routine Discharge) 11/23/2024 Travel 11/21/2024 Results [facility] [address], [address] [place] [phone] Gildardo Chao MD IR LUMB PUNCTURE DIAGNOSTIC, CELL COUNT, CSF, GLUCOSE CSF, Additional followed-up results: 9 11/19/2024 8:27 AM CDT - 11/19/2024 3:30 PM CDT Hospital Encounter [facility] [place] [address] Gildardo Chao MD Discharge Disposition: Home or Self Care (Routine Discharge) 11/19/2024 8:25 AM CDT Hospital Encounter [facility] [place] [address] Ramu Haro MD Discharge Disposition: Home or Self Care (Routine Discharge) 11/19/2024 Travel 11/17/2024 1:55 PM CDT - 11/17/2024 11:59 PM CDT Hospital Encounter [facility] Open MRI [address] [place] [address] Gildardo Chao MD Discharge Disposition: Home or Self Care (Routine Discharge) 11/17/2024 Travel 11/17/2024 Telephone [facility] - [place] [address] [facility] [address] [place] [address] Gildardo Chao MD Information; Callback 11/11/2024 Orders Only [facility] [place] [address] Ramu Haro MD 11/04/2024 Pre-Procedure Call [facility] [place] [address] Ramu Haro MD Preprocedure Call 11/03/2024 2:00 PM CDT Office Visit [facility] Multispecialty Care - [facility] [address], [address] [place] [address] Gildardo Chao MD Establish Care (Migraines) 11/03/2024 [...] Description 03/24/2025 8:40 AM CDT Office Visit [facility] - [facility] [address], [address] [place] [address] Gildardo Chao MD 3 [place] [address] 03/30/2025 2:15 PM CDT Office Visit [facility] [address] [place] [address] Marquis Salmeron MD [facility]. [facility] [address] [place] [address] 05/18/2025 1:20 PM LEPIDOPTERIST Office Visit [facility] - [facility] [address], [address] [place] [address] Gildardo Chao MD 3 [place] [address] Health Maintenance Due Date Last Done Comments [...] Meningococcal Vaccine Completed 07/28/2014, 009 PHQ-2 (Physician [place]) Completed 11/03/2024 HPV Vaccines Aged Out No longer eligi ble based on patient's age to complete this topic Meningococcal B Vaccine Aged Out No l onger eligible based on patient's age to complete this topic RSV Immunizations Under 20 Months Aged Out No longer eligible based on patient's age to complete this topic Medical Devices Implanted Type Area Recorder Gravity Prospecting Device Identifier Shelf Expiration Date Model / Serial / Lot Implant System Internalbrace Ligament [employer] - [id number] Implanted:Qty: 1 on 02/28/2018 by Jermain Simeon MD at [facility] Left: Ankle [employer] 10/14/2019 [id number] / / [id number] Biocomposite Suture [place], [place],Short Dx Implanted:Qty: 2 on 02/28/2018 by Jermain Simeon MD at [facility] Left: Ankle [employer] 06/14/2018 [id number] / / [id number] Procedures Procedure Name Priority Date/Time Associated Diagnosis [...] 100 - 108 MMOL/L 01/07/2025 8:15 PM [facility] CO2 23.1 21 - 32 MMOL/L 01/07/2025 8:15 PM [facility] CALCIUM S/P/B 8.8 8.5 - 10.1 MG/DL 01/07/2025 8:15 PM T [facility] BILIRUBIN TOTAL S/P/B 1.3(H) 0.2 - 1.2 MG/DL 01/07/2025 8:15 PM [facility] TOTAL PROTEIN S/P/B 7.0 6.4 - 8.2 G/DL 01/07/2025 8:15 PM [facility] ALBUMIN S/P/B 3.6 3.4 - 5.0 G/DL 01/07/2025 8:15 PM [facility] AST 31 15 - 37 U/L 01/07/2025 8:15 PM [facility] ALT 49 14 - 55 U/L 01/07/2025 8:15 PM [facility] ALKALINE PHOSPHATASE S/P/B 73 50 - 136 U/L 01/07/2025 8:15 PM [facility] ANION GAP 9.9 5 - 15 MMOL/L 01/07/2025 8:15 PM [facility] BUN CREATININE RATIO 6.9 6 - 26 01/07/2025 8:15 PM [facility] A/G RATIO 1.1 1.0 - 2.0 RATIO 01/07/2025 8:15 PM [facility] GFR ESTIMATE >90 >90 ML/MIN/1.7 3 M2 01/07/2025 8:15 PM [facility] Comment: NOTE: eGFR is not calculated [...] Final Resul t [facility] [address] [place] [address], [place] [phone] * (ABNORMAL) CBC W/DIFF AUTOMATED (01/07/2025 7:54 [...] 12.4 - 15.1 % 01/07/2025 8:02 PM [facility] PLT 230 151 - 353 x10'3/uL 01/07/2025 8:02 PM [facility] MPV 9.2(L) 9.6 - 12.0 FL 01/07/2025 8:02 PM [facility] RBC MORPHOLOGY NORMAL 01/07/2025 8:02 PM [facility] PLT MORPH. NORMAL 01/07/2025 8:02 PM [facility] WBC MORPHOLOGY NORMAL 01/07/2025 8:02 PM [facility] LYMPHOCYTES % 22.2 15.8 - 45.0 % 01/07/2025 8:02 PM [facility] NEUTROPHILS % 71.9 42.1 - 71.9 % 01/07/2025 8:02 PM [facility] MONOCYTES % 4.7(L) 5.7 - 12.5 % 01/07/2025 8:02 PM [facility] EOSINOPHILS 0.9 0.0 - 5.6 % 01/07/2025 8:02 PM [facility] BASOPHILS 0.2 0.0 - 1.3 % 01/07/2025 8:02 PM [facility] ABS. NEUTROPHILS 6.15(H) 1.40 - 6.00 x10'3/uL 01/07/2025 8:02 PM [facility] IMMATURE GRANS % 0.1 0.0 - 0.5 % 01/07/2025 8:02 PM [facility] ABS. LYMPHOCYTES 1.90 0.80 - 4.70 x10'3/uL 01/07/2025 8:02 PM [facility] 01/07/2025 7:54 PM CDT us Ced Douglas MD LABORATORY Final Resul t Performing Organization Address City/[facility]/ZIP Co de Phone Number [facility] [address] [place] [address], [place] [phone] * CK (CPK) (01/07/2025 7:54 PM CDT) CPK 53 26 - 192 U/L 01/07/2025 8:15 PM CDT [facility] 01/07/2025 7:54 PM CDT us Ced Douglas MD LABORATORY Final Resul t Performing Organization Address [facility] de Phone Number [facility] [address] [place] [address], [place] [phone] * MRI ORBITS WWO CON (12/10/2024 12:25 PM CDT) Anatomical Region Laterality Modality Orbits Magnetic Resonan ce 12/14/2024 11:1 4 AM CDT Impressions 12/14/2024 11:17 AM CDT IMPRESSION: 1. Normal appearance of the brain and orbits. 2. Patent dural venous sinus system. Referred By: GILDARDO HCAO Interpreted By: Mike Aceves MD, 12/14/2024 11:14 AM Narrative 12/14/2024 11:[address]T [address] [address] EXAMINATION: MRI BRAIN WWO CON, MRV HEAD WWO, MRI ORBITS WWO CON, 12/14/2024 11:14 AM TECHNIQUE: Multiplanar multisequence magnetic resonance images of the brain and orbits were obtained before and after the administration of 19 mL of Dotarem injected through the IV, without evidence of adverse reaction. Sagittal 2-D epkv-uq-bahake and postcontrast magnetic resonance images of the [...] Procedure Note Mike Aceves MD - 12/14/[address] [address] EXAMINATION: MRI BRAIN WWO CON, MRV HEAD WWO, MRI ORBITS WWO CON, 511:14 AM TECHNIQUE: Multiplanar multisequence magnetic resonance images of thebrain and orbits were obtained before and after the administration of 19mL of Dotarem injected through the IV, without evidence of adversereaction. Sagittal 2-D lvzo-td-hamoww and postcontrast magnetic resonanceimages of the dural [...] 11:14 AM Narrative 12/14/2024 11:17 AM CDT [address] [address] EXAMINATION: MRI BRAIN WWO CON, MRV HEAD WWO, MRI ORBITS WWO CON, 12/14/2024 11:14 AM TECHNIQUE: Multiplanar multisequence magnetic resonance images of the brain and orbits were obtained before and after the administration of 19 mL of Dotarem injected through the IV, without evidence of adverse reaction. Sagittal 2-D oqmo-qf-osiudo and postcontrast magnetic resonance images of the [...] Procedure Note Mike Aceves MD - 12/14/[address] [address] EXAMINATION: MRI BRAIN WWO CON, MRV HEAD WWO, MRI ORBITS WWO CON, 1:14 AM TECHNIQUE: Multiplanar multisequence magnetic resonance images of thebrain and orbits were obtained before and after the administration of 19mL of Dotarem injected through the IV, without evidence of adversereaction. Sagittal 2-D brom-ap-zafgns and postcontrast magnetic resonanceimages of the dural [...] 11:14 AM Narrative 12/14/2024 11:17 AM CDT [place] [address] [place] [address] EXAMINATION: MRI BRAIN WWO CON, MRV HEAD WWO, MRI ORBITS WWO CON, 12/14/2024 11:14 AM TECHNIQUE: Multiplanar multisequence magnetic resonance images of the brain and orbits were obtained before and after the administration of 19 mL of Dotarem injected through the IV, without evidence of adverse reaction. Sagittal 2-D faia-el-utgmoz and postcontrast magnetic resonance images of the [...] Procedure Note Mike Aceves MD - 12/14/2024 [place] [address] [place] [address] EXAMINATION: MRI BRAIN WWO CON, MRV HEAD WWO, MRI ORBITS WWO CON, 1:14 AM TECHNIQUE: Multiplanar multisequence magnetic resonance images of thebrain and orbits were obtained before and after the administration of 19mL of Dotarem injected through the IV, without evidence of adversereaction. Sagittal 2-D vdsd-dr-hkhxgi and postcontrast magnetic resonanceimages of the dural [...] Final Res ult [facility] [address] [place] [address], * CORONAVIRUS (COVID-19) MOLECULAR (11/23/2024 7:00 PM [...] ORDERA BLES Final Result Performing Organization Address City/[facility]/ZIP Co de Phone Number [facility] [address] [place] [address], [place] [phone] * INFLUENZA A & B (11/23/2024 7:00 PM CDT) Pathologist [facility] SPECIMEN TYPE NASOPHARYNX 11/23/2024 7:13 PM CDT [facility] INFLUENZA A NEGATIVE NEGATIVE 11/23/2024 7:34 PM CDT [facility] INFLUENZA B NEGATIVE NEGATIVE 11/23/2024 7:34 PM CDT [facility] NASAL NASOPHARYNGEAL SWAB / Unknown 11/23/2024 7:00 PM CDT Yolie Simpson MD MICROBIOLOGY - GENERAL ORDERA BLES Final Result [facility] [address] [place] [address], [place] [phone] * STREP A RAPID (11/23/2024 7:00 PM CDT) RAPID STREP TEST NEGATIVE NEGATIVE 11/23/2024 7:24 PM CDT [facility] STRUCTURE OF ANTERIOR PORTION OF NECK / Unknown 11/23/2024 7:00 PM CDT us Yolie Simpson MD MICROBIOLOGY - GENERAL ORDERA BLES Final Result [facility] [address] [place] [address], * (ABNORMAL) BASIC METABOLIC PANEL (11/23/2024 7:00 PM CDT) [facility] GLUCOSE 109(H) 70 - 99 MG/DL 11/23/2024 [...] MD LABORATORY Final Result Performing Organization Address [facility] Co de Phone Number [facility] [address] [place] [address], [place] [phone] * CHORIONIC GONADOTROPIN HCG QL (11/23/2024 7:00 PM CDT) PREG SCREEN-SERUM NEGATIVE NEGATIVE 11/23/2024 7:40 PM CDT [facility] 11/23/2024 7:00 PM CDT Yolie Simpson MD LABORATORY Final Result Performing Organization Address [facility] Co de Phone Number [facility] [address] [place] [address], [place] [phone] * IR LUMB PUNCTURE DIAGNOSTIC (11/19/2024 10:58 [...] AM Narrative 11/19/2024 11:24 AM CDT [address] [address] Procedure: IR Lumbar puncture diagnostic with imaging Exam Date/Time: 11/19/2024 8:26 AM Indication: 29 female presenting for image, puncture for pressure measurement and fluid collection for analysis. Pseudotumor Comparison: Lumbar spine radiographs 03/19/2024, Procedure technique and findings: Informed verbal and written consent was obtained with patient/patient's medical power of immigration attorney. The procedure was discussed including the rationale, [...] tolerated the procedure well. No immediate complication. Game Designer: Dr. Haro Radiation dose Air Kerma: 9.9 mGy; 2 fluoroscopy images recorded Procedure Note Ramu Haro MD - 11/19/[address] [address] Procedure: IR Lumbar puncture diagnostic with imaging Exam Date/Time: 11/19/2024 8:26 AM Indication: 29 female presenting for image, puncture for pressuremeasurement and fluid collection for analysis. Pseudotumor Comparison: Lumbar spine radiographs 03/19/2024, Procedure technique and findings: Informed verbal and written consent was obtained with patient/patient'smedical power of immigration attorney. The procedure was discussed including therationale, alternatives, [...] and tolerated the procedure well. Noimmediate complication. Game Designer: Dr. Haro Radiation dose Air Kerma: 9.9 [...] TUBE NUMBER 3 11/19/2024 12:[address] [facility] TOTAL VOLUME (CSF) 15.25 ML 11/19/2024 12:[address] [facility] COLOR (CSF) COLORLESS 11/19/2024 12:[address] [facility] CLARITY (CSF) CLEAR 11/19/2024 12:[address] [facility] RBC (CSF) 0 CELLS/UL 11/19/2024 12:[address] [facility] TOTAL NUCLEATED CELL (CSF) 2 0 - 5 CELLS/UL 11/19/2024 12:[address] [facility] LYMPHS (CSF) 71 % 11/19/2024 12:[address] [facility] OTHER MONONUCLEAR CELLS (CSF) 29 % 11/19/2024 12:[address] [facility] Comment: THE FOLLOWING MAY INCLUDE MONOCYTE/MACROPHAGE,PLASMA CELL,MESOTHELIAL CELL,BRONCHIAL LINING CELL,SYNOVIAL LINING CELL,VENTRICULAR LINING CELL,ENDOTHELIAL CELL,SQUAMOUS EPITHELIAL AND OTHER CELLS. CSF, LUMBAR 11/19/2024 10:4 7 AM CDT Gildardo Chao MD BODY FLUIDS AND STOOLS OR DERABLES Final Result [facility] [address] [place] [address], [place] [phone] * GLUCOSE CSF (11/19/2024 10:47 AM CDT) GLUCOSE (CSF) 53 40 - 70 MG/DL 11/19/2024 11:[address] [facility] CSF, LUMBAR 11/19/2024 10:4 7 AM CDT us Gildardo Chao MD BODY FLUIDS AND STOOLS OR DERABLES Final Result [facility] [address] [place] [address], [place] [phone] * (ABNORMAL) PROTEIN TOTAL CSF (11/19/2024 10:47 AM CDT) TOTAL PROTEIN (CSF) 55(H) 15 - 45 MG/DL 11/19/2024 11:[address] [facility] CSF, LUMBAR 11/19/2024 10:4 7 AM CDT Gildardo Chao MD BODY FLUIDS AND STOOLS OR DERABLES Final Result [facility] [address] [place] [address], [place] [phone] * IGG SYNTHESIS RATE *CSF AND SERUM REQUIRED* (11/19/2024 10:47 AM CDT) CSF IGG SYNTH RATE minus4.4 minus9.9- 3.3 mg/24 h 11/23/2024 1:29 AM CDT [employer] JAN BECKER IGG INDEX (CSF) 0.46 <0.70 1:29 AM CDT [employer] [facility] JAN QUIGLEYY Comment: The IgG Synthesis rate, CSF and IgG index, CSF are two formulae for estimating the amount of IgG produced in the central nervous system. Evidence of increased synthesis of IgG provides support for the diagnosis of multiple sclerosis. ALBUMIN (CSF) 18.1 8.0 - 42.0 mg/dL 11/23/2024 1:29 AM CDT [employer] [facility] JAN BECKER IGG (CSF) 2.2 0.8 - 7.7 mg/dL 11/23/2024 1:29 AM CDT [employer] [facility] JAN QUIGLEYY IMMUNOGLOBULIN G 1,230 600 - 1,640 mg/dL 11/23/2024 1:29 AM CDT [employer] [facility] JAN QUIGLEYY ALBUMIN S/P/B 4.7 3.6 - 5.1 g/dL 11/23/2024 1:29 AM CDT [employer] [facility] JAN QUIGLEYY Comment: Test Performed by [facility], [facility], [address] [place], [place] Tristan Singleton M.D., Ph.D., Director of Laboratories , CLIA [id number] CSF & SERUM 11/19/2024 10:4 7 AM CDT us Gildardo Chao MD LABORATORY Final Res ult Performing Organization Address City/[facility]/ZIP Co de Phone Number [employer] [facility] [address] [place], [place] , * OLIGOCLONAL BANDS *CSF AND SERUM REQUIRED* (11/19/2024 10:47 AM CDT) OLIGOCLONAL BANDS Absent Absent 025 9:43 AM CDT [employer] Comment: No Oligoclonal bands are identified in the patient's CSF when compared to the corresponding serum sample. Oligoclonal bands are present in the CSF of more than 85% of patients with clinically definite multiple sclerosis (MS). To distinguish between oligoclonal bands in the CSF due to a peripheral gammopathy and oligoclonal bands due to local production in the SALES PROMOTION COORDINATOR, serum and CSF should be tested simultaneously. Oligoclonal bands can however be observed in a variety of other diseases, e.g., subacute sclerosing panen- cephalitis, inflammatory polyneuropathy, SALES PROMOTION COORDINATOR lupus, and brain tumors and infarctions. The clinical significance of a numerical band count, determined by isoelectric focusing, has not been definitively defined. The data should be interpreted in conjunction with all pertinent clinical and laboratory data for this patient. Test Performed by [place], [facility] [place], [address] [place], [place] Tristan Singleton M.D., Ph.D., Director of Laboratories , CLIA [id number] CSF & SERUM 11/19/2024 10:4 7 AM CDT us Gildardo Chao MD BODY FLUIDS AND STOOLS OR DERABLES Final Result Performing Organization Address [facility]/ZIP Co de Phone Number [facility] [address] [place], [place] , * MYELIN BASIC PROTEIN, CSF (11/19/2024 10:47 AM CDT) MYELIN BASIC PROTEIN (CSF) <2.0 <=4.0 mcg/L 11/25/2024 2:47 PM CDT [employer] AHSAN BELLO Comment: Result Interpretation < or= 4.0 mcg/L Negative 4.1-6.0 mcg/L Weakly Positive >6.0 mcg/L Positive This test was developed and its analytical performance characteristics have been determined by [facility] [place], [place]. It has not been cleared or approved by the U.S. Food and Drug Administration. This assay has been validated pursuant to the CLIA regulations and is used for clinical purposes. Test Performed by [facility], [facility], [address] [place] [address] Tristan Singleton M.D., Ph.D., Director of Laboratories , CLIA [id number] CSF, LUMBAR 11/19/2024 10:4 7 AM CDT Gildardo Chao MD BODY FLUIDS AND STOOLS OR DERABLES Final Result Performing Organization Address City/[facility]/ZIP Co de Phone Number [employer] [facility] [address] [place], [place] , * PLATELET COUNT, AUTO (11/19/2024 8:31 AM CDT) PLT 254 130 - 400 x10'3/uL 11/19/2024 8:[address] [facility] MPV 9.6 9.3 - 12.2 FL 11/19/2024 8:[address] [facility] 11/19/2024 8:31 AM CDT us Ramu Haro MD LABORATORY Final Result Performing Organization Address City/[facility]/ZIP Co de Phone Number [facility] [address] [place] [address], [place] [phone] * PTT, PARTIAL THROMBOPLASTIN TIME (11/19/2024 8:31 AM CDT) PTT 32.2 25.1 - 36.5 SEC 11/19/2024 8:[address] [facility] 11/19/2024 8:31 AM CDT us Ramu Haro MD LABORATORY Final Result Performing Organization Address [facility] Co de Phone Number [facility] [address] [place] [address], [place] [phone] * PROTIME/INR, VENOUS (11/19/2024 8:31 AM CDT) PROTIME 11.8 10.2 - 12.9 SEC 11/19/2024 8:[address] [facility] INR 1.0 11/19/2024 8:[address] [facility] Comment: Recommended INR Therapeutic Goals: 2.0-3.0 Routine Therapy 2.5-3.5 Mechanical Prosthetic Valves (High Risk) 11/19/2024 8:31 AM CDT us Ramu Haro MD LABORATORY Final Result Performing Organization Address City/[facility] Co de Phone Number [facility] [address] [place] [address], [place] [phone] * MRI CERV SPINE WWO CON (11/17/2024 3:56 PM CDT) Anatomical Region Laterality Modality Spine Magnetic Resonan ce 11/22/2024 11:0 9 AM CDT Impressions 11/22/2024 11:21 AM CDT IMPRESSION: No significant abnormality identified. Ordered By: GILDARDO CHAO Interpreted By: Byron Gray MD, 11/22/2024 11:09 AM Narrative 11/22/2024 11:21 AM CDT [address] [address] Examination: MRI CERV SPINE WWO CON, MRI [...] Procedure Note Byron Gray MD - 11/22/2024 [address] [place] [place] [address] Examination: MRI CERV SPINE WWO CON, MRI [...] gadolinium contrast material postcontrast axial and sagittal [id number] were obtained throughout the cervical and thoracic [...] tip with the distal tip at the [id number]. There is no evidence of abnormal enhancement [...] 11:09 AM Narrative 11/22/2024 11:21 AM CDT [address] [address] Examination: MRI CERV SPINE WWO CON, MRI [...] Procedure Note Byron Gray MD - 11/22/[address] [address] Examination: MRI CERV SPINE WWO CON, MRI [...] gadolinium contrast material postcontrast axial and sagittal [id number] were obtained throughout the cervical and thoracic [...] tip with the distal tip at the [id number]. There is no evidence of abnormal enhancement throughout the cervical orthoracic spinal cord. No evidence of abnormal epidural or intradural extramedullary enhancement. Signal intensity of the subcutaneous tissues and paraspinal muscle isnormal. There are Schmorl's nodes visualized involving the vertebral bodyendplates at the T11-12 and T12-L1 levels consistent with developmentalvariation. IMPRESSION: No significant abnormality identified. Ordered By: GIDLARDO CHAO Interpreted By: Byron Gray MD, 11/22/2024 11:09 AM us Gildardo Chao MD MRI Final Res ult * PAP SMEAR (09/04/2019) 09/04/2019 Narrative 09/04/2019 Ordered by an unspecified provider. us Documents Scanned SCANNING Final Result from Last 3 Months or Most Recently Relevant to Health Maintenance Insurance [employer] Advance Directives * Full Code (Latest Code Status on File) Date Activated Date Inactivated Comments 04/08/2020 2:09 PM 04/11/2020 12:11 AM * Full Code Date Activated Date Inactivated Comments 04/01/2020 2:08 PM 04/01/2020 5:39 PM * Full Code Date Activated Date Inactivated Comments 03/01/2020 3:01 PM 03/01/2020 5:35 PM Care Teams Dental Patient Coordinator Relationship Specialty Start Date End Date Elin Chau NP [address] [place] [phone] PCP - General NURSE PRACTITIONER 03/19/24
--- OUTSIDE RECORDS SUMMARY | 2025-01-30 18:44 | XMS_ITS | Encounter Summary ---
Author Organization [facility] Address [facility] [place] [address] Care Team Providers Care Dental Appliance Mechanic Name Role Phone Airam Daniel NP Primary Care Provider Unav ailable Won Faustin MD Primary Care Provider [phone] Elin Chau NP Primary Care Provider [phone] Encounter Details Date Type Department Care Team (Late st Contact Info) Description 01/21/[email or web address] [facility] Family & Internal Medicine [address] [address] Airam Daniel NP RE: Question [...] Description 03/24/2025 8:40 AM CDT Office Visit [facility] Multispecialty Care - [address], [address] [place] [address] Gildardo Chao MD 3 [place] [address] 03/30/2025 2:15 PM CDT [facility] [address] [facility] [place] [address] Marquis Salmeron MD Three [facility]. [address] [place] [address] 05/18/2025 1:20 PM HAT CHECKER Office Visit [facility] Multispecialty Care - Health system [address] [facility], [address] [place] [address] Gildardo Chao MD 3 [place] [address] documented as of this encounter Visit Diagnoses Not on filedocumented in this encounter Additional Health Concerns Infection Onset Date Last Indicated Resolved Time COVID-19 Rule Out 06/07/2021 06/07/2021 06/07/2021 11:27 AM HAT CHECKER COVID-19 Confirmed 06/07/2021 06/07/2021 12:32 AM HAT CHECKER COVID-19 Rule Out 08/07/2023 08/07/2023 08/07/2023 9:37 AM HAT CHECKER Influenza - Seasonal 08/07/2023 08/07/2023 024 12:33 AM HAT CHECKER COVID-19 Rule Out 08/07/2023 08/07/2023 08/07/2023 12:46 PM HAT CHECKER Respiratory Rule Out 11/23/2024 11/23/2024 025 7:34 PM CDT COVID-19 Rule Out 11/23/2024 11/23/2024 11/23/2024 7:33 PM CDT documented as of this encounter Care Teams Dental Appliance Mechanic Relationship Specialty Start Date End Date Airam Daniel NP PCP - General NURSE PRACTITIONER 03/19/20 05/16/21 [place] [address] [place] [address] PCP - General FAMILY PRACTICE 05/17/21 03/18/24 Elin Chau NP [address] [place] [address] PCP - General NURSE PRACTITIONER 03/19/24 documented as of this encounter
--- OUTSIDE RECORDS SUMMARY | 2025-01-30 18:44 | XMS_ITS | Encounter Summary ---
Author Organization [facility] Address [facility] [place] [address] Care Team Providers Care Oncology Physician Name Role Phone Lakshmi Flor MD Primary Care Provider Unavailab Airam Weinstein BATCH PLANT OPERATOR Primary Care Provider Unav ailable Won Faustin MD Primary Care Provider [phone] Elin Chau BATCH PLANT OPERATOR Primary Care Provider [phone] Encounter Details Date Type Department Care Team (Late st Contact Info) Description 02/11/2020 Hospital Orders Only [facility] One Day Services [address] [place] [address] Prema Jc DO [address] [place] [address] Social History Tobacco Use Types [...] Description 03/24/2025 8:40 AM CDT Office Visit [facility] [address] [facility], [address] [place] [address] Gildardo Chao MD 3 [place] [address] 03/30/2025 2:15 PM CDT Office Visit [facility] [address] [place] [address] Marquis Salmeron MD Three [facility]. [address] [facility] [place] [address] 05/18/2025 1:20 PM DISPLAY ASSOCIATE Office Visit [facility] 3 [facility], [address] [place] [address] Gildardo Chao MD 3 [place] [address] documented as of this encounter Visit Diagnoses Diagnosis (HHS/HCC)- Primary state, incidental documented in this encounter Additional Health Concerns Infection Onset Date Last Indicated Resolved Time COVID-19 Rule Out 06/07/2021 06/07/2021 06/07/2021 11:27 AM DISPLAY ASSOCIATE COVID-19 Confirmed 06/07/2021 06/07/2021 12:32 AM DISPLAY ASSOCIATE COVID-19 Rule Out 08/07/2023 08/07/2023 08/07/2023 9:37 AM DISPLAY ASSOCIATE Influenza - Seasonal 08/07/2023 08/07/2023 024 12:33 AM DISPLAY ASSOCIATE COVID-19 Rule Out 08/07/2023 08/07/2023 08/07/2023 12:46 PM DISPLAY ASSOCIATE Respiratory Rule Out 11/23/2024 11/23/2024 025 7:34 PM CDT COVID-19 Rule Out 11/23/2024 11/23/2024 11/23/2024 7:33 PM CDT documented as of this encounter Care Teams Oncology Physician Relationship Specialty Start Date End Date Lakshmi Flor MD PCP - General INTERNAL MEDICINE 09/27/17 03/18/20 Airam Daniel NP PCP - General NURSE PRACTITIONER 03/19/20 05/16/21 [place] [address] [place] [address] PCP - General FAMILY PRACTICE 05/17/21 03/18/24 Elin Chau NP [address] [place] [address] PCP - General NURSE PRACTITIONER 03/19/24 documented as of this encounter
--- OUTSIDE RECORDS SUMMARY | 2025-01-30 18:44 | XMS_ITS | Encounter Summary ---
Author Organization [facility] Address [facility] [place] [address] Care Team Providers Care School Age Program Teacher Name Role Phone Won Faustin MD Primary Care Provider [phone] Elin Chau NP Primary Care Provider [phone] Encounter Details Date Type Department Care Team ([facility] Contact Info) Description 06/07/2021 Scoreoidt Message Enc [facility] Family & Internal Medicine [facility] [address] [place] [address] Won Faustin MD [address] [place] [address] Medication refill Social History Tobacco Use [...] Coronavirus / COVID-19? Yes 06/07/2021 10:32 AM PAPER BAG PRESS OPERATOR documented as of this encounter Functional Status [...] 10:57 AM Jen Arias RN Active * Todd Suicide Severity Rating Scale (Screener/Recent Self-Report) Question [...] 03/24/2025 8:40 AM CDT Office Visit [facility] 3 [facility], [address] [place] [address] Gildardo Chao MD 3 [place] [address] 03/30/2025 2:15 PM CDT Office Visit [place] [facility] [address] [place] [address] Marquis Salmeron MD Three [facility]. [address] [facility] [place] [address] 05/18/2025 1:20 PM PAPER BAG PRESS OPERATOR Office Visit [facility] [address] [facility], [address] [place] [address] Gildardo Chao MD 3 [place] [address] documented as of this encounter Visit Diagnoses Not on filedocumented in this encounter Additional Health Concerns Infection Onset Date Last Indicated Resolved Time COVID-19 Rule Out 06/07/2021 06/07/2021 06/07/2021 11:27 AM PAPER BAG PRESS OPERATOR COVID-19 Confirmed 06/07/2021 06/07/2021 12:32 AM PAPER BAG PRESS OPERATOR COVID-19 Rule Out 08/07/2023 08/07/2023 08/07/2023 9:37 AM PAPER BAG PRESS OPERATOR Influenza - Seasonal 08/07/2023 08/07/2023 024 12:33 AM PAPER BAG PRESS OPERATOR COVID-19 Rule Out 08/07/2023 08/07/2023 08/07/2023 12:46 PM PAPER BAG PRESS OPERATOR Respiratory Rule Out 11/23/2024 11/23/2024 025 7:34 PM CDT COVID-19 Rule Out 11/23/2024 11/23/2024 11/23/2024 7:33 PM CDT documented as of this encounter Care Teams School Age Program Teacher Relationship Specialty [place] [address] [place] [address] PCP - General FAMILY PRACTICE 05/17/21 03/18/24 Elin Chau NP [address] [place] [address] PCP - General NURSE PRACTITIONER 03/19/24 documented as of this encounter
--- OUTSIDE RECORDS SUMMARY | 2025-01-30 18:44 | XMS_ITS | Encounter Summary ---
Author Organization [facility] Address [address] [place] [address] Care Team Providers Care Job Printer Apprentice Name Role Phone Lakshmi Flor MD Primary Care Provider Unavailab Airam Weinstein ENVIRONMENT COORDINATOR Primary Care Provider Unav ailable Won Faustin MD Primary Care Provider [phone] Elin Chau ENVIRONMENT COORDINATOR Primary Care Provider [phone] Encounter Details Date Type Department Care Team (Late Contact Info) Description 11/22/2016 Abstract [facility] CONVERSION [address] [place] [address] , Generic ConversionMD Social History Tobacco Use [...] Description 03/24/2025 8:40 AM CDT Office Visit [facility] Multispecialty Care - [facility] [address] [facility], [address] [place] [address] Gildardo Chao MD [address] [place] [address] 03/30/2025 2:15 PM CDT [facility] [address] [place] [address] Marquis Salmeron MD Three [facility]. [address] [place] [address] 05/18/2025 1:20 PM SEWER AND CUTTER FINGER BUFF MATERIAL Office Visit [facility] Multispecialty Care - [facility] [address] [facility], [address] [place] [address] Gildardo Chao MD [address] [place] [address] documented as of this encounter Visit Diagnoses Not on filedocumented in this encounter Additional Health Concerns Infection Onset Date Last Indicated Resolved Time COVID-19 Rule Out 06/07/2021 06/07/2021 06/07/2021 11:27 AM SEWER AND CUTTER FINGER BUFF MATERIAL COVID-19 Confirmed 06/07/2021 06/07/2021 12:32 AM SEWER AND CUTTER FINGER BUFF MATERIAL COVID-19 Rule Out 08/07/2023 08/07/2023 08/07/2023 9:37 AM SEWER AND CUTTER FINGER BUFF MATERIAL Influenza - Seasonal 08/07/2023 08/07/2023 024 12:33 AM SEWER AND CUTTER FINGER BUFF MATERIAL COVID-19 Rule Out 08/07/2023 08/07/2023 08/07/2023 12:46 PM SEWER AND CUTTER FINGER BUFF MATERIAL Respiratory Rule Out 11/23/2024 11/23/2024 025 7:34 PM CDT COVID-19 Rule Out 11/23/2024 11/23/2024 11/23/2024 7:33 PM CDT documented as of this encounter Care Teams Job Printer Apprentice Relationship Specialty Start Date End Date Lakshmi Flor MD PCP - General INTERNAL MEDICINE 09/27/17 03/18/20 Airam Daniel NP PCP - General NURSE PRACTITIONER 03/19/20 05/16/21 [place] [address] [place] [address] PCP - General FAMILY PRACTICE 05/17/21 03/18/24 Elin Chau NP [address] [place] [address] PCP - General NURSE PRACTITIONER 03/19/24 documented as of this encounter
--- OUTSIDE RECORDS SUMMARY | 2025-01-30 18:44 | XMS_ITS | Encounter Summary ---
Author Organization [facility] Address [address] [place] [address] Care Team Providers Care Sugar Sampler Name Role Phone Lakshmi Flor MD Primary Care Provider Unavailab Airam Weinstein TELEMEDICINE PHYSICIAN Primary Care Provider Unav ailable Won Faustin MD Primary Care Provider [phone] Elin Chau TELEMEDICINE PHYSICIAN Primary Care Provider [phone] Encounter Details Date Type Department Care Team (Late Contact Info) Description 07/22/2015 Abstract [facility] CONVERSION [address] [place] [address] , Generic ConversionMD Social History Tobacco Use [...] 8:40 AM CDT Office Visit [facility] Multispecialty Care - [facility] [address] [facility], [address] [place] [address] Gildardo Chao MD [address] [place] [address] 03/30/2025 2:15 PM CDT Office [facility] [address] [place] [address] Marquis Salmeron MD Three [facility]. [address] [place] [address] 05/18/2025 1:20 PM OPTION TRADER Office Visit [facility] Multispecialty Care - [facility] [address] [facility], [address] [place] [address] Gildardo Chao MD [address] [place] [address] documented as of this encounter Visit Diagnoses Not on filedocumented in this encounter Additional Health Concerns Infection Onset Date Last Indicated Resolved Time COVID-19 Rule Out 06/07/2021 06/07/2021 06/07/2021 11:27 AM OPTION TRADER COVID-19 Confirmed 06/07/2021 06/07/2021 12:32 AM OPTION TRADER COVID-19 Rule Out 08/07/2023 08/07/2023 08/07/2023 9:37 AM OPTION TRADER Influenza - Seasonal 08/07/2023 08/07/2023 024 12:33 AM OPTION TRADER COVID-19 Rule Out 08/07/2023 08/07/2023 08/07/2023 12:46 PM OPTION TRADER Respiratory Rule Out 11/23/2024 11/23/2024 025 7:34 PM CDT COVID-19 Rule Out 11/23/2024 11/23/2024 11/23/2024 7:33 PM CDT documented as of this encounter Care Teams Sugar Sampler Relationship Specialty Start Date End Date Lakshmi Flor MD PCP - General INTERNAL MEDICINE 09/27/17 03/18/20 Airam Daniel NP PCP - General NURSE PRACTITIONER 03/19/20 05/16/21 [place] [address] [place] [address] PCP - General FAMILY PRACTICE 05/17/21 03/18/24 Elin Chau NP [address] [place] [address] PCP - General NURSE PRACTITIONER 03/19/24 documented as of this encounter
--- OUTSIDE RECORDS SUMMARY | 2025-01-30 18:44 | XMS_ITS | Encounter Summary ---
Author Organization [facility] Address [address] [place] [address] Care Team Providers Care Television Technician Name Role Phone Lakshmi Flor MD Primary Care Provider Unavailab Airam Weinstein BATH ATTENDANT Primary Care Provider Unav ailable Won Faustin MD Primary Care Provider [phone] Elin Chau BATH ATTENDANT Primary Care Provider [phone] Encounter Details Date Type Department Care Team (Late Contact Info) Description 07/28/2016 Abstract [facility] CONVERSION [address] [place] [address] , Generic ConversionMD Social History Tobacco Use [...] [facility] Mult[facility] - [facility] [address] [facility], [address] [place] [address] Gildardo Chao MD [address] [place] [address] 03/30/2025 2:15 PM CDT [facility] [address] [place] [address] Marquis Salmeron MD Three [facility]. [address] [place] [address] 05/18/2025 1:20 PM EMERGENCY ROOM TECH Office Visit [facility] Multispecialty Care - [facility] [address] [facility], [address] [place] [address] Gildardo Chao MD [address] [place] [address] documented as of this encounter Visit Diagnoses Not on filedocumented in this encounter Additional Health Concerns Infection Onset Date Last Indicated Resolved Time COVID-19 Rule Out 06/07/2021 06/07/2021 06/07/2021 11:27 AM EMERGENCY ROOM TECH COVID-19 Confirmed 06/07/2021 06/07/2021 12:32 AM EMERGENCY ROOM TECH COVID-19 Rule Out 08/07/2023 08/07/2023 08/07/2023 9:37 AM EMERGENCY ROOM TECH Influenza - Seasonal 08/07/2023 08/07/2023 024 12:33 AM EMERGENCY ROOM TECH COVID-19 Rule Out 08/07/2023 08/07/2023 08/07/2023 12:46 PM EMERGENCY ROOM TECH Respiratory Rule Out 11/23/2024 11/23/2024 025 7:34 PM CDT COVID-19 Rule Out 11/23/2024 11/23/2024 11/23/2024 7:33 PM CDT documented as of this encounter Care Teams Television Technician Relationship Specialty Start Date End Date Lakshmi Flor MD PCP - General INTERNAL MEDICINE 09/27/17 03/18/20 Airam Daniel NP PCP - General NURSE PRACTITIONER 03/19/20 05/16/21 [place] [address] [place] [address] PCP - General FAMILY PRACTICE 05/17/21 03/18/24 Elin Chau NP [address] [place] [address] PCP - General NURSE PRACTITIONER 03/19/24 documented as of this encounter
--- OUTSIDE RECORDS SUMMARY | 2025-01-30 18:44 | XMS_ITS | Encounter Summary ---
Author Organization [facility] Address [facility] [place] [address] Care Team Providers Care Television Audio Engineer Name Role Phone Elin Chau DIRECTOR OF REVENUE CYCLE MANAGEMENT Primary Care Provider [phone] Encounter Details Date Type Department Care Team (Late st Contact Info) Description 12/15/[address] [facility] Multispecialty Care - [facility] [address], [address] [place] [address] [facility], [facility] Provider Results Social History Tobacco Use Types [...] Description 03/24/2025 8:40 AM CDT Office Visit [facility] 3 [facility], [address] [place] [address] Gildardo Chao MD 3 [place] [address] 03/30/2025 2:15 PM CDT [facility] [address] [place] [address] Marquis Salmeron MD [facility]. [address] [place] [address] 05/18/2025 1:20 PM HEATER OPERATOR HELPER Office Visit [facility] Mult[facility]ialty Care - [facility] 3 [facility], [address] [place] [address] Gildardo Chao MD 3 [place] [address] documented as of this encounter Visit Diagnoses Not on filedocumented in this encounter Care Teams Television Audio Engineer Relationship Specialty Start Date End Date Elin Chau NP [address] [place] [address] PCP - General NURSE PRACTITIONER 03/19/24 documented as of this encounter
--- OUTSIDE RECORDS SUMMARY | 2025-01-30 18:44 | XMS_ITS | Encounter Summary ---
Author Organization [facility] Address [address] [place] [address] Care Team Providers Care Practicing Dermatologist Name Role Phone Lakshmi Flor MD Primary Care Provider Unavailab Airam Weinstein DIRECTOR OF DISTRICT OFFICE Primary Care Provider Unav ailable Won Faustin MD Primary Care Provider [phone] Elin Chau DIRECTOR OF DISTRICT OFFICE Primary Care Provider [phone] Encounter Details Date Type Department Care Team (Late Contact Info) Description 10/31/2014 Abstract [facility] CONVERSION [address] [place] [address] , Generic ConversionMD Social History Tobacco Use [...] Description 03/24/2025 8:40 AM CDT Office Visit [facility] Group Multispecialty Care - [facility] 3 [facility], [address] [place] [address] Gildardo Chao MD [address] [place] [address] 03/30/2025 2:15 PM CDT [facility] Visit [facility] [address] [place] [address] Marquis Salmeron MD Three [facility]. [address] [place] [address] 05/18/2025 1:20 PM RN CLINICAL DOCUMENTATION SPECIALIST Office Visit [facility] Medical Group Multispecialty Care - [facility] 3 [facility], [address] [place] [address] Gildardo Chao MD 3 [place] [address] documented as of this encounter Visit Diagnoses Not on filedocumented in this encounter Additional Health Concerns Infection Onset Date Last Indicated Resolved Time COVID-19 Rule Out 06/07/2021 06/07/2021 06/07/2021 11:27 AM RN CLINICAL DOCUMENTATION SPECIALIST COVID-19 Confirmed 06/07/2021 06/07/2021 12:32 AM RN CLINICAL DOCUMENTATION SPECIALIST COVID-19 Rule Out 08/07/2023 08/07/2023 08/07/2023 9:37 AM RN CLINICAL DOCUMENTATION SPECIALIST Influenza - Seasonal 08/07/2023 08/07/2023 024 12:33 AM RN CLINICAL DOCUMENTATION SPECIALIST COVID-19 Rule Out 08/07/2023 08/07/2023 08/07/2023 12:46 PM RN CLINICAL DOCUMENTATION SPECIALIST Respiratory Rule Out 11/23/2024 11/23/2024 025 7:34 PM CDT COVID-19 Rule Out 11/23/2024 11/23/2024 11/23/2024 7:33 PM CDT documented as of this encounter Care Teams Practicing Dermatologist Relationship Specialty Start Date End Date Lakshmi Flor MD PCP - General INTERNAL MEDICINE 09/27/17 03/18/20 Airam Daniel NP PCP - General NURSE PRACTITIONER 03/19/20 05/16/21 [place] [address] [place] [address] PCP - General FAMILY PRACTICE 05/17/21 03/18/24 Elin Chau NP [address] [place] [address] PCP - General NURSE PRACTITIONER 03/19/24 documented as of this encounter
--- OUTSIDE RECORDS SUMMARY | 2025-01-30 18:44 | XMS_ITS | Encounter Summary ---
Author Organization [facility] Address [address] [place] [address] Care Team Providers Care Pension Consultant Name Role Phone Won Faustin MD Primary Care Provider [phone] Elin Chau NP Primary Care Provider [phone] Encounter Details Date Type Department Care Team (Late st Contact Info) Description 08/12/2021 Therapy Plan [facility] One Day Services [address] [place], [place] [phone] Ivone Lowery MD [address] [place], [place] [address] Social History Tobacco Use Types Packs/Day Years [...] COVID-19? No / Unsure 08/12/2021 2:05 PM MEDICAL SCREENER documented as of this encounter Functional Status [...] Description 03/24/2025 8:40 AM CDT Office Visit [facility] Multispecialty Care - [facility] [address] [facility], [address] [place] [address] Gildardo Chao MD 3 [place] [address] 03/30/2025 2:15 PM CDT [facility] [address] [place] [address] Marquis Salmeron MD Three [facility]. [address] [place] [address] 05/18/2025 1:20 PM MEDICAL SCREENER Office Visit [facility] Multispecialty Care - [facility] 3 [facility], [address] [place] [address] Gildardo Chao MD 3 [place] [address] documented as of this encounter Visit Diagnoses Diagnosis Pelvic pain- Primary documented in this encounter Additional Health Concerns Infection Onset Date Last Indicated Resolved Time COVID-19 Rule Out 08/07/2023 08/07/2023 08/07/2023 9:37 AM MEDICAL SCREENER Influenza - Seasonal 08/07/2023 08/07/2023 024 12:33 AM MEDICAL SCREENER COVID-19 Rule Out 08/07/2023 08/07/2023 08/07/2023 12:46 PM MEDICAL SCREENER Respiratory Rule Out 11/23/2024 11/23/2024 025 7:34 PM CDT COVID-19 Rule Out 11/23/2024 11/23/2024 11/23/2024 7:33 PM CDT documented as of this encounter Care Teams Pension Consultant Relationship Specialty [place] [address] [place] [address] PCP - General FAMILY PRACTICE 05/17/21 03/18/24 Elin Chau NP [address] [place] [phone] PCP - General NURSE PRACTITIONER 03/19/24 documented as of this encounter
--- OUTSIDE RECORDS SUMMARY | 2025-01-30 18:44 | XMS_ITS | Encounter Summary ---
Author Organization [facility] Address [address] [place] [address] Care Team Providers Care Graphic Engineer Name Role Phone Lakshmi Flor MD Primary Care Provider Unavailab Airam Weinstein ELECTRIFICATION ADVISER Primary Care Provider Unav ailable Won Faustin MD Primary Care Provider [phone] Elin Chau ELECTRIFICATION ADVISER Primary Care Provider [phone] Encounter Details Date Type Department Care Team (Late Contact Info) Description 02/27/2014 Abstract [facility] CONVERSION [address] [place] [address] , Generic ConversionMD Social History Tobacco Use [...] 8:40 AM CDT Office Visit [facility] Medical Group Multispecialty Care - [facility] [address] [facility], [address] [place] [address] Gildardo Chao MD [address] [place] [address] 03/30/2025 2:15 PM CDT [facility] [address] [place] [address] Marquis Salmeron MD Three [facility]. [address] [place] [address] 05/18/2025 1:20 PM PUBLIC HEALTH EPIDEMIOLOGIST Office Visit [facility] Medical Group Multispecialty Care - [facility] [address] [facility], [address] [place] [address] Gildardo Chao MD 3 [place] [address] documented as of this encounter Visit Diagnoses Not on filedocumented in this encounter Additional Health Concerns Infection Onset Date Last Indicated Resolved Time COVID-19 Rule Out 06/07/2021 06/07/2021 06/07/2021 11:27 AM PUBLIC HEALTH EPIDEMIOLOGIST COVID-19 Confirmed 06/07/2021 06/07/2021 12:32 AM PUBLIC HEALTH EPIDEMIOLOGIST COVID-19 Rule Out 08/07/2023 08/07/2023 08/07/2023 9:37 AM PUBLIC HEALTH EPIDEMIOLOGIST Influenza - Seasonal 08/07/2023 08/07/2023 024 12:33 AM PUBLIC HEALTH EPIDEMIOLOGIST COVID-19 Rule Out 08/07/2023 08/07/2023 08/07/2023 12:46 PM PUBLIC HEALTH EPIDEMIOLOGIST Respiratory Rule Out 11/23/2024 11/23/2024 025 7:34 PM CDT COVID-19 Rule Out 11/23/2024 11/23/2024 11/23/2024 7:33 PM CDT documented as of this encounter Care Teams Graphic Engineer Relationship Specialty Start Date End Date Lakshmi Flor MD PCP - General INTERNAL MEDICINE 09/27/17 03/18/20 Airam Daniel NP PCP - General NURSE PRACTITIONER 03/19/20 05/16/21 [place] [address] [place] [address] PCP - General FAMILY PRACTICE 05/17/21 03/18/24 Elin Chau NP [address] [place] [address] PCP - General NURSE PRACTITIONER 03/19/24 documented as of this encounter
--- OUTSIDE RECORDS SUMMARY | 2025-01-30 18:44 | XMS_ITS | Clinical Summary ---
Author Organization [facility] Address [address] [place] [address] Care Team Providers Care Vp Human Resources Name Role Phone Unavailable Primary Care Provider Unavailabl e Source Comments [facility],non-owned Affiliates and Associated Physician Practices is amultiple site organization consisting of ambulatory clinics and hospital sitesin [place], [place], [place] and [place]. This disclosure is being madepursuant to the Care Everywhere program and may not contain all information available regarding this patient. Last updated 18.[facility] NextPotential Allergies No known active allergies Medications * [...] on file Legal Sex Female 5:38 AM PROCUREMENT REPRESENTATIVE Gender Identity Not on file Sexual Orientation [...] patient's age to complete this topic Insurance [facility]
== END 2025-01-30 18:43 | disposition left against medical advice (07) ==
LOC: ANHED 18:42
DX: R51.9 Headache, unspecified (principal)
CPT/HCPCS: 99199

== ENCOUNTER 2025-02-17 14:44 | Emergency (ER) | payer OTHER, SELFPAY ==
--- OUTSIDE RECORDS SUMMARY | 2025-02-17 14:47 | XMS_ITS | Encounter Summary ---
Author Organization [facility] Address Counts include 234 beds at the [facility] [place] [address] Care Team Providers Care Content Manager Name Role Phone Lakshmi Flor MD Primary Care Provider Unavailab Airam Weinstein SUPERVISOR ERECTION SHOP Primary Care Provider Unav ailable Won Faustin MD Primary Care Provider [phone] Elin Chau SUPERVISOR ERECTION SHOP Primary Care Provider [phone] Encounter Details Date Type Department Care Team (Late st Contact Info) Description 02/11/2020 Hospital Orders Only [facility] [address] [place] [address] Prema Jc DO [address] [place] [address] Social History Tobacco Use Types [...] Office Visit [facility] [address] [facility], [address] [place] [address] Gildardo Chao MD 3 [place] [address] 03/30/2025 2:15 PM CDT Office Visit [facility] [address] [place] [address] Marquis Salmeron MD Three [facility]. [address] [facility] [place] [place] [address] 05/18/2025 1:20 PM HAT BRAIDER Office Visit [facility] [address] [facility], [address] [place] [address] Gildardo Chao MD 3 [place] [address] documented as of this encounter Visit Diagnoses Diagnosis (HHS/HCC)- Primary state, incidental documented in this encounter Additional Health Concerns Infection Onset Date Last Indicated Resolved Time COVID-19 Rule Out 06/07/2021 06/07/2021 06/07/2021 11:27 AM HAT BRAIDER COVID-19 Confirmed 06/07/2021 06/07/2021 12:32 AM HAT BRAIDER COVID-19 Rule Out 08/07/2023 08/07/2023 08/07/2023 9:37 AM HAT BRAIDER Influenza - Seasonal 08/07/2023 08/07/2023 024 12:33 AM HAT BRAIDER COVID-19 Rule Out 08/07/2023 08/07/2023 08/07/2023 12:46 PM HAT BRAIDER Respiratory Rule Out 11/23/2024 11/23/2024 025 7:34 PM CDT COVID-19 Rule Out 11/23/2024 11/23/2024 11/23/2024 7:33 PM CDT documented as of this encounter Care Teams Content Manager Relationship Specialty Start Date End Date Lakshmi Flor MD PCP - General INTERNAL MEDICINE 09/27/17 03/18/20 Airam Daniel NP PCP - General NURSE PRACTITIONER 03/19/20 05/16/21 [place] [address] [place] [address] PCP - General FAMILY PRACTICE 05/17/21 03/18/24 Elin Chau NP [address] [place] [address] PCP - General NURSE PRACTITIONER 03/19/24 documented as of this encounter
--- OUTSIDE RECORDS SUMMARY | 2025-02-17 14:47 | XMS_ITS | Encounter Summary ---
Author Organization [facility] Address [facility] [place] [address] Care Team Providers Care Waste Paper Hammermill Operator Name Role Phone Airam Daniel NP Primary Care Provider Unav ailable Won Faustin MD Primary Care Provider [phone] Elin Chau NP Primary Care Provider [phone] Encounter Details Date Type Department Care Team (Late st Contact Info) Description 11/28/2020 ImmunoGent Message Enc [facility] Medical Group Family & Internal Medicine [address] [address] Airam Daniel NP RE: Question [...] Description 03/24/2025 8:40 AM CDT Office Visit [facility] [address] [facility], [address] [place] [address] Gildardo Chao MD 3 [place] [address] 03/30/2025 2:15 PM CDT Office Visit [facility] [address] [place] [address] Marquis Salmeron MD Three [facility]. [address] [place] [address] 05/18/2025 1:20 PM VOCATIONAL EDUCATION PROFESSIONAL Office Visit [facility] [address] [facility], [address] [place] [address] Gildardo Chao MD 3 [place] [address] documented as of this encounter Visit Diagnoses Not on filedocumented in this encounter Additional Health Concerns Infection Onset Date Last Indicated Resolved Time COVID-19 Rule Out 06/07/2021 06/07/2021 06/07/2021 11:27 AM VOCATIONAL EDUCATION PROFESSIONAL COVID-19 Confirmed 06/07/2021 06/07/2021 12:32 AM VOCATIONAL EDUCATION PROFESSIONAL COVID-19 Rule Out 08/07/2023 08/07/2023 08/07/2023 9:37 AM VOCATIONAL EDUCATION PROFESSIONAL Influenza - Seasonal 08/07/2023 08/07/[address] 024 12:33 AM VOCATIONAL EDUCATION PROFESSIONAL COVID-19 Rule Out 08/07/2023 08/07/2023 08/07/2023 12:46 PM VOCATIONAL EDUCATION PROFESSIONAL Respiratory Rule Out 11/23/2024 11/23/2024 025 7:34 PM CDT COVID-19 Rule Out 11/23/2024 11/23/2024 11/23/2024 7:33 PM CDT documented as of this encounter Care Teams Waste Paper Hammermill Operator Relationship Specialty Start Date End Date Airam Daniel NP PCP - General NURSE PRACTITIONER 03/19/20 05/16/21 [place] [address] [place] [address] PCP - General FAMILY PRACTICE 05/17/21 03/18/24 Elin Chau NP [address] [place] [address] PCP - General NURSE PRACTITIONER 03/19/24 documented as of this encounter
--- OUTSIDE RECORDS SUMMARY | 2025-02-17 14:47 | XMS_ITS | Encounter Summary ---
Author Organization [facility] Address [facility] [place] [address] Care Team Providers Care Clerical And Administrative Workers Name Role Phone Airam Daniel NP Primary Care Provider Unav ailable Won Faustin MD Primary Care Provider [phone] Elin Chau NP Primary Care Provider [phone] Encounter Details Date Type Department Care Team (Late st Contact Info) Description 11/24/2020 AccountNowt Message Enc [facility] Medical Group Family & Internal Medicine [address] [address] Airam Daniel NP RE: Medication [...] Description 03/24/2025 8:40 AM CDT Office Visit [facility] Medical Group Multispecialty Care - [facility] [address] [facility], [address] [place] [address] Gildardo Chao MD 3 [place] [address] 03/30/2025 2:15 PM CDT [facility] [address] [place] [address] Marquis Salmeron MD Three [facility]. [address] [place] [address] 05/18/2025 1:20 PM POSTPARTUM NURSE Office Visit [facility] Medical Group Multispecialty Care - [facility] 3 [facility], [address] [place] [address] Gildardo Chao MD 3 [place] [address] documented as of this encounter Visit Diagnoses Not on filedocumented in this encounter Additional Health Concerns Infection Onset Date Last Indicated Resolved Time COVID-19 Rule Out 06/07/2021 06/07/2021 06/07/2021 11:27 AM POSTPARTUM NURSE COVID-19 Confirmed 06/07/2021 06/07/2021 12:32 AM POSTPARTUM NURSE COVID-19 Rule Out 08/07/2023 08/07/2023 08/07/2023 9:37 AM POSTPARTUM NURSE Influenza - Seasonal 08/07/2023 08/07/2023 024 12:33 AM POSTPARTUM NURSE COVID-19 Rule Out 08/07/2023 08/07/2023 08/07/2023 12:46 PM POSTPARTUM NURSE Respiratory Rule Out 11/23/2024 11/23/2024 025 7:34 PM CDT COVID-19 Rule Out 11/23/2024 11/23/2024 11/23/2024 7:33 PM CDT documented as of this encounter Care Teams Clerical And Administrative Workers Relationship Specialty Start Date End Date Airam Daniel NP PCP - General NURSE PRACTITIONER 03/19/20 05/16/21 [place] [address] [place] [address] PCP - General FAMILY PRACTICE 05/17/21 03/18/24 Elin Chau NP [address] [place] [address] PCP - General NURSE PRACTITIONER 03/19/24 documented as of this encounter
--- OUTSIDE RECORDS SUMMARY | 2025-02-17 14:47 | XMS_ITS | Encounter Summary ---
Author Organization [facility] Address [facility] [place] [address] Care Team Providers Care Top Tile Decorator Name Role Phone Airam Daniel NP Primary Care Provider Unav ailable Won Faustin MD Primary Care Provider [phone] Elin Chau NP Primary Care Provider [phone] Encounter Details Date Type Department Care Team (Late st Contact Info) Description 01/21/2021 HidInImaget Message Enc [facility] Medical Group Family & Internal Medicine [address] [address] Airam Daniel NP RE: Question [...] Description 03/24/2025 8:40 AM CDT Office Visit [facility] Medical Group Multispecialty Care - [address], [address] [place] [address] Gildardo Chao MD 3 [place] [address] 03/30/2025 2:15 PM CDT [facility] [address] [facility] [place] [address] Marquis Salmeron MD Three [facility]. [address] [place] [address] 05/18/2025 1:20 PM JOINTER SUBMARINE CABLE Office Visit [facility] Medical Group Multispecialty Care - [facility] 3 [facility], [address] [place] [address] Gildardo Chao MD 3 [place] [address] documented as of this encounter Visit Diagnoses Not on filedocumented in this encounter Additional Health Concerns Infection Onset Date Last Indicated Resolved Time COVID-19 Rule Out 06/07/2021 06/07/2021 06/07/2021 11:27 AM JOINTER SUBMARINE CABLE COVID-19 Confirmed 06/07/2021 06/07/2021 12:32 AM JOINTER SUBMARINE CABLE COVID-19 Rule Out 08/07/2023 08/07/2023 08/07/2023 9:37 AM JOINTER SUBMARINE CABLE Influenza - Seasonal 08/07/2023 08/07/2023 024 12:33 AM JOINTER SUBMARINE CABLE COVID-19 Rule Out 08/07/2023 08/07/2023 08/07/2023 12:46 PM JOINTER SUBMARINE CABLE Respiratory Rule Out 11/23/2024 11/23/2024 025 7:34 PM CDT COVID-19 Rule Out 11/23/2024 11/23/2024 11/23/2024 7:33 PM CDT documented as of this encounter Care Teams Top Tile Decorator Relationship Specialty Start Date End Date Airam Daniel NP PCP - General NURSE PRACTITIONER 03/19/20 05/16/21 [place] [address] [place] [address] PCP - General FAMILY PRACTICE 05/17/21 03/18/24 Elin Chau NP [address] [place] [address] PCP - General NURSE PRACTITIONER 03/19/24 documented as of this encounter
--- OUTSIDE RECORDS SUMMARY | 2025-02-17 14:48 | XMS_ITS | Encounter Summary ---
Author Organization [facility] Address [facility] [place] [address] Care Team Providers Care Battery Installer Name Role Phone Elin Chau ALMOND GRINDER Primary Care Provider [phone] Encounter Details Date Type Department Care Team (Late st Contact Info) Description 12/15/2024 XDC Message Enc [facility] Medical Group Multispecialty Care - [facility] [address] [facility] [address], [address] [place] [address] T[place], [facility] Provider Results Social History Tobacco Use Types [...] Description 03/24/2025 8:40 AM CDT Office Visit [facility] [address] [facility], [address] [place] [address] Gildardo Chao MD 3 [place] [address] 03/30/2025 2:15 PM CDT [facility] Visit [facility] [address] [place] [address] Marquis Salmeron MD [facility]. [address] [place] [address] 05/18/2025 1:20 PM CLOCKMAKER Office Visit [facility] Mult[facility]pecialty Care - [facility] [address] [facility], [address] [place] [address] Gildardo Chao MD 3 [place] [address] documented as of this encounter Visit Diagnoses Not on filedocumented in this encounter Care Teams Battery Installer Relationship Specialty Start Date End Date Elin Chau NP [address] [place] [address] PCP - General NURSE PRACTITIONER 03/19/24 documented as of this encounter
--- OUTSIDE RECORDS SUMMARY | 2025-02-17 14:48 | XMS_ITS | Encounter Summary ---
Author Organization [facility] Address [address] [place] [address] Care Team Providers Care Consumer Advocate Name Role Phone Lakshmi Flor MD Primary Care Provider Unavailab iAram Weinstein INSIDE ACCOUNT EXECUTIVE Primary Care Provider Unav ailable Won Faustin MD Primary Care Provider [phone] Elin Chau INSIDE ACCOUNT EXECUTIVE Primary Care Provider [phone] Encounter Details Date Type Department Care Team (Late Contact Info) Description 07/22/2015 Abstract [facility] CONVERSION [address] [place] [address] , Generic ConversionMD Social History Tobacco Use [...] Description 03/24/2025 8:40 AM CDT Office Visit [facility] [address] [facility], [address] [place] [address] Gildardo Chao MD [address] [place] [address] 03/30/2025 2:15 PM CDT Office [facility] [address] [place] [address] Marquis Salmeron MD Three [facility]. [address] [place] [address] 05/18/2025 1:20 PM SHINGLE CARRIER Office Visit [facility] Medical [facility] 3 [facility], [address] [place] [address] Gildardo Chao MD 3 [place] [address] documented as of this encounter Visit Diagnoses Not on filedocumented in this encounter Additional Health Concerns Infection Onset Date Last Indicated Resolved Time COVID-19 Rule Out 06/07/2021 06/07/2021 06/07/2021 11:27 AM SHINGLE CARRIER COVID-19 Confirmed 06/07/2021 06/07/2021 12:32 AM SHINGLE CARRIER COVID-19 Rule Out 08/07/2023 08/07/2023 08/07/2023 9:37 AM SHINGLE CARRIER Influenza - Seasonal 08/07/2023 08/07/2023 024 12:33 AM SHINGLE CARRIER COVID-19 Rule Out 08/07/2023 08/07/2023 08/07/2023 12:46 PM SHINGLE CARRIER Respiratory Rule Out 11/23/2024 11/23/2024 025 7:34 PM CDT COVID-19 Rule Out 11/23/2024 11/23/2024 11/23/2024 7:33 PM CDT documented as of this encounter Care Teams Consumer Advocate Relationship Specialty Start Date End Date Lakshmi Flor MD PCP - General INTERNAL MEDICINE 09/27/17 03/18/20 Airam Daniel NP PCP - General NURSE PRACTITIONER 03/19/20 05/16/21 [place] [address] [place] [address] PCP - General FAMILY PRACTICE 05/17/21 03/18/24 Elin Chau NP [address] [place] [address] PCP - General NURSE PRACTITIONER 03/19/24 documented as of this encounter
--- OUTSIDE RECORDS SUMMARY | 2025-02-17 14:48 | XMS_ITS | Encounter Summary ---
Author Organization [facility] Address [address] [place] [address] Care Team Providers Care Wire Frame Lampshade Maker Name Role Phone Lakshmi Flor MD Primary Care Provider Unavailab Airam Weinstein GUN PERFORATOR LOADER Primary Care Provider Unav ailable Won Faustin MD Primary Care Provider [phone] Elin Chau GUN PERFORATOR LOADER Primary Care Provider [phone] Encounter Details Date Type Department Care Team (Late Contact Info) Description 02/27/2014 Abstract [facility] CONVERSION [address] [place] [address] , Generic ConversionMD Social History Tobacco Use [...] Description 03/24/2025 8:40 AM CDT Office Visit [facility] Medical Group Multispecialty Care - [facility] 3 [facility], [address] [place] [address] Gildardo Chao MD [address] [place] [address] 03/30/2025 2:15 PM CDT Office [facility] [address] [place] [address] Marquis Salmeron MD Three [facility]. [address] [place] [address] 05/18/2025 1:20 PM DIRECTOR MEDIA Office Visit [facility] Medical Group Multispecialty Care - [facility] 3 [facility], [address] [place] [address] Gildardo Chao MD 3 [place] [address] documented as of this encounter Visit Diagnoses Not on filedocumented in this encounter Additional Health Concerns Infection Onset Date Last Indicated Resolved Time COVID-19 Rule Out 06/07/2021 06/07/2021 06/07/2021 11:27 AM DIRECTOR MEDIA COVID-19 Confirmed 06/07/2021 06/07/2021 12:32 AM DIRECTOR MEDIA COVID-19 Rule Out 08/07/2023 08/07/2023 08/07/2023 9:37 AM DIRECTOR MEDIA Influenza - Seasonal 08/07/2023 08/07/2023 024 12:33 AM DIRECTOR MEDIA COVID-19 Rule Out 08/07/2023 08/07/2023 08/07/2023 12:46 PM DIRECTOR MEDIA Respiratory Rule Out 11/23/2024 11/23/2024 025 7:34 PM CDT COVID-19 Rule Out 11/23/2024 11/23/2024 11/23/2024 7:33 PM CDT documented as of this encounter Care Teams Wire Frame Lampshade Maker Relationship Specialty Start Date End Date Lakshmi Flor MD PCP - General INTERNAL MEDICINE 09/27/17 03/18/20 Airam Daniel NP PCP - General NURSE PRACTITIONER 03/19/20 05/16/21 [place] [address] [place] [address] PCP - General FAMILY PRACTICE 05/17/21 03/18/24 Elin Chau NP [address] [place] [address] PCP - General NURSE PRACTITIONER 03/19/24 documented as of this encounter
--- OUTSIDE RECORDS SUMMARY | 2025-02-17 14:48 | XMS_ITS | Encounter Summary ---
Author Organization [facility] Address [address] [place] [address] Care Team Providers Care Newscast Director Name Role Phone Lakshmi Flor MD Primary Care Provider Unavailab Airam Weinstein FULL STACK PHP DEVELOPER Primary Care Provider Unav ailable Won Faustin MD Primary Care Provider [phone] Elin Chau FULL STACK PHP DEVELOPER Primary Care Provider [phone] Encounter Details Date Type Department Care Team (Late Contact Info) Description 11/22/2016 Abstract [facility] CONVERSION [address] [place] [address] , Generic ConversionMD Social History Tobacco Use [...] Description 03/24/2025 8:40 AM CDT Office Visit [facility] Medical Group Multispecialty Care - [facility] 3 [facility], [address] [place] [address] Gildardo Choa MD [address] [place] [address] 03/30/2025 2:15 PM CDT [facility] [address] [place] [address] Marquis Salmeron MD Three [facility]. [address] [place] [address] 05/18/2025 1:20 PM RN TELEPHONIC Office Visit [facility] Medical Group Multispecialty Care - [facility] 3 [facility], [address] [place] [address] Gildardo Chao MD 3 [place] [address] documented as of this encounter Visit Diagnoses Not on filedocumented in this encounter Additional Health Concerns Infection Onset Date Last Indicated Resolved Time COVID-19 Rule Out 06/07/2021 06/07/2021 06/07/2021 11:27 AM RN TELEPHONIC COVID-19 Confirmed 06/07/2021 06/07/2021 12:32 AM RN TELEPHONIC COVID-19 Rule Out 08/07/2023 08/07/2023 08/07/2023 9:37 AM RN TELEPHONIC Influenza - Seasonal 08/07/2023 08/07/2023 024 12:33 AM RN TELEPHONIC COVID-19 Rule Out 08/07/2023 08/07/2023 08/07/2023 12:46 PM RN TELEPHONIC Respiratory Rule Out 11/23/2024 11/23/2024 025 7:34 PM CDT COVID-19 Rule Out 11/23/2024 11/23/2024 11/23/2024 7:33 PM CDT documented as of this encounter Care Teams Newscast Director Relationship Specialty Start Date End Date Lakshmi Flor MD PCP - General INTERNAL MEDICINE 09/27/17 03/18/20 Airam Daniel NP PCP - General NURSE PRACTITIONER 03/19/20 05/16/21 [place] [address] [place] [address] PCP - General FAMILY PRACTICE 05/17/21 03/18/24 Elin Chau NP [address] [place] [address] PCP - General NURSE PRACTITIONER 03/19/24 documented as of this encounter
--- OUTSIDE RECORDS SUMMARY | 2025-02-17 14:48 | XMS_ITS | Encounter Summary ---
Author Organization [facility] Address [facility] [place] [address] Care Team Providers Care Air Battle Manager Name Role Phone Won Faustin MD Primary Care Provider [phone] Elin Chau NP Primary Care Provider [phone] Encounter Details Date Type Department Care Team ([facility] Contact Info) Description 06/07/2021 Sharematict Message Enc [facility] Family & Internal Medicine [facility] [id number] [place] [phone] Won Faustin MD [address] [place] [id number] Medication refill Social History Tobacco Use [...] Coronavirus / COVID-19? Yes 06/07/2021 10:32 AM APPLICATION TESTER documented as of this encounter Functional Status [...] 10:57 AM Jen Arias RN Active * [place] Suicide Severity Rating Scale (Screener/Recent Self-Report) Question [...] Description 03/24/2025 8:40 AM CDT Office Visit [facility] [address], [address] [place] [address] Gildardo Chao MD [address] [place] [address] 03/30/2025 2:15 PM CDT Office Visit [facility] [address] [place] [address] Marquis Salmeron MD Three [facility]. SHIV[facility] [place] [address] 05/18/2025 1:20 PM APPLICATION TESTER Office Visit [facility] [address] [facility], [address] [place] [address] Gildardo Chao MD [address] [place] [address] documented as of this encounter Visit Diagnoses Not on filedocumented in this encounter Additional Health Concerns Infection Onset Date Last Indicated Resolved Time COVID-19 Rule Out 06/07/2021 06/07/2021 06/07/2021 11:27 AM APPLICATION TESTER COVID-19 Confirmed 06/07/2021 06/07/2021 12:32 AM APPLICATION TESTER COVID-19 Rule Out 08/07/2023 08/07/2023 08/07/2023 9:37 AM APPLICATION TESTER Influenza - Seasonal 08/07/2023 08/07/2023 024 12:33 AM APPLICATION TESTER COVID-19 Rule Out 08/07/2023 08/07/2023 08/07/2023 12:46 PM APPLICATION TESTER Respiratory Rule Out 11/23/2024 11/23/2024 025 7:34 PM CDT COVID-19 Rule Out 11/23/2024 11/23/2024 11/23/2024 7:33 PM CDT documented as of this encounter Care Teams Air Battle Manager Relationship Specialty [place] [address] [place] [address] PCP - General FAMILY PRACTICE 05/17/21 03/18/24 Elin Chau NP [address] [place] [address] PCP - General NURSE PRACTITIONER 03/19/24 documented as of this encounter
--- OUTSIDE RECORDS SUMMARY | 2025-02-17 14:48 | XMS_ITS | Encounter Summary ---
Author Organization [facility] Address [address] [place] [address] Care Team Providers Care Gastroenterology Professor Name Role Phone Lakshmi Flor MD Primary Care Provider Unavailab Airam Weinstein RESTRICTIVE PREPARATION OPERATOR Primary Care Provider Unav ailable Won Faustin MD Primary Care Provider [phone] Elin Chau RESTRICTIVE PREPARATION OPERATOR Primary Care Provider [phone] Encounter Details Date Type Department Care Team (Late Contact Info) Description 12/09/2014 Abstract [facility] CONVERSION [address] [place] [address] , Generic ConversionMD Social History Tobacco Use [...] Description 03/24/2025 8:40 AM CDT Office Visit [facility] Multispecialty Care - [facility] [address] [facility], [address] [place] [address] Gildardo Chao MD [address] [place] [address] 03/30/2025 2:15 PM CDT [facility] [address] [place] [phone] Marquis Salmeron MD Three [facility]. [address] [place] [address] 05/18/2025 1:20 PM ENTERPRISE SALES EXECUTIVE Office Visit [facility] Multispecialty [facility] - [facility] [address], [address] [place] [phone] Gildardo Chao MD [address] [place] [address] documented as of this encounter Visit Diagnoses Not on filedocumented in this encounter Additional Health Concerns Infection Onset Date Last Indicated Resolved Time COVID-19 Rule Out 06/07/2021 06/07/2021 06/07/2021 11:27 AM ENTERPRISE SALES EXECUTIVE COVID-19 Confirmed 06/07/2021 06/07/2021 12:32 AM ENTERPRISE SALES EXECUTIVE COVID-19 Rule Out 08/07/2023 08/07/2023 08/07/2023 9:37 AM ENTERPRISE SALES EXECUTIVE Influenza - Seasonal 08/07/2023 08/07/2023 024 12:33 AM ENTERPRISE SALES EXECUTIVE COVID-19 Rule Out 08/07/2023 08/07/2023 08/07/2023 12:46 PM ENTERPRISE SALES EXECUTIVE Respiratory Rule Out 11/23/2024 11/23/2024 025 7:34 PM CDT COVID-19 Rule Out 11/23/2024 11/23/2024 11/23/2024 7:33 PM CDT documented as of this encounter Care Teams Gastroenterology Professor Relationship Specialty Start Date End Date Lakshmi Flor MD PCP - General INTERNAL MEDICINE 09/27/17 03/18/20 Airam Daniel NP PCP - General NURSE PRACTITIONER 03/19/20 05/16/21 [place] [address] [place] [address] PCP - General FAMILY PRACTICE 05/17/21 03/18/24 Elin Chau NP [address] [place] [address] PCP - General NURSE PRACTITIONER 03/19/24 documented as of this encounter
--- OUTSIDE RECORDS SUMMARY | 2025-02-17 14:48 | XMS_ITS | Clinical Summary ---
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 This disclosure is being madepursuant to the Care Everywhere program and may not contain all information available regarding this patient. Last updated 18.[facility] Allergies No known active allergies Medications * Be aware that medications may not be up to date on this document. Alwaysverify current medications with the patient. clonazePAM (KLONOPIN) 0.5 MG tablet Take 0.5 mg by mouth 2 times daily as needed for Anxiety Active Active Problems Problem Noted Date Diagnosed Date Acute left ankle pain 11/04/2015 Left ankle pain 10/07/2015 Syncope 01/23/2013 Encounters Date Type Department Care Team Description 02/02/2025 8:20 PM CDT - 02/02/2025 9:55 PM CDT Emergency ER at [address] [address] History of psychogenic nonepileptic seizure; Psychogenic nonepileptic seizure; Hypokalemia Discharge Disposition: Home or Self Care 02/02/2025 Travel from Last 3 Months Immunizations Immunization Administration Dates Next Due INFLUENZA VACCINE 08/01/2013 Social History Tobacco Use Types Packs/Day Years Used Date Smoking Tobacco: Never Smokeless Tobacco: Never Alcohol Use Standard Drinks/Week Comments No 0 (1 standard drink = 0.6 oz pur e alcohol) AUDIT-C Answer Date Recorded Q1: How often do you have a drink containing alc ohol? Monthly or less 02/02/2025 Q2: How many drinks containi ng alcohol do you have on a typical day when you are drinking? 1 or 2 02/02/2025 Q3: How often do you have si x or more drinks on one occasion? 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 Gender Identity Not on file Sexual Orientation Not on file Last Filed Vital Signs Vital Sign Reading Time Taken Comments Blood Pressure 104/67 02/02/2025 9:45 PM CDT Pulse 69 02/02/2025 9:45 PM CDT Temperature 37 C (98.6 F) 02/02/2025 8:32 PM CDT Respiratory Rate 10 02/02/2025 9:45 PM CDT Oxygen Saturation 100% 02/02/2025 9:45 PM CDT Inhaled Oxygen Concentration - - Weight 81.6 kg (180 lb) 02/02/2025 8:32 PM CDT Height 165.1 cm (5' 5) 02/02/2025 8:32 PM CDT Body Mass Index 29.95 02/02/2025 8:32 PM CDT Plan of Treatment Health Maintenance Due Date Last Done Comments HIV SCREENING 2012 HEPATITIS C SCREENING 11/05/2015 DTAP/TDAP/TD VACCINES (1 - Tdap) 2016 HEPATITIS B VACCINE (1 of 3 - 19+ 3-dose series) 2016 PAP SMEAR 2018 COVID-19 VACCINE ( - season) 2024 DEPRESSION SCREENING 07/16/2024 HPV VACCINE (1 - 3-dose SCDM series) 2024 INFLUENZA VACCINE (#1) 2025 7, 07/05/2016, 08/01/2013, Additional history exists ZOSTER VACCINE (1 of 2) 11/10/2047 HIB VACCINE Aged Out No longer eligi ble based on patient's age to complete this topic MENINGOCOCCAL (Group B) VACCINE SHARED DECISION-MAKING Aged Out No longer eligible based on patient's age to complete this topic MENINGOCOCCAL GROUPS A/C/Y/W VACCINE Aged Out No longer eligible based on patient's age to complete this topic PNEUMOCOCCAL VACCINE Aged Out No long er eligible based on patient's age to complete this topic Procedures Procedure Name Priority Date/Time Associated Diagnosis Comments HCG BLOOD QUALITATIVE STAT 02/02/2025 8:41 PM CDT COMPREHENSIVE METABOLIC PANEL STAT 02/02/2025 8:41 PM CDT CBC W AUTO DIFFERENTIAL STAT 02/02/2025 8:41 PM CDT from Last 3 Months Results * CBC W AUTO DIFFERENTIAL (02/02/2025 8:41 PM CDT) WBC 8.8 4.0 - 10.7 x10E9/L 02/02/2025 8:46 PM CDT [facility] RBC Count 4.86 3.90 - 5.20 x10E12/L 02/02/2025 8:46 PM CDT [facility] Hemoglobin 14.9 11.9 - 15.8 g/dL 02/02/2025 8:46 PM CDT [facility] Hematocrit 41.8 34.8 - 46.1 % 02/02/2025 8:46 PM CDT [facility] MCV 86.0 80.0 - 98.0 fL 02/02/2025 8:46 PM CDT [facility] MCH 30.7 26.7 - 33.6 pg 02/02/2025 8:46 PM CDT [facility] MCHC 35.6 31.7 - 36.3 g/dL 02/02/2025 8:46 PM CDT [facility] RDW-CV 12.3 11.3 - 14.8 % 02/02/2025 8:46 PM CDT [facility] Platelet Count 240 150 - 420 x10E9/L 02/02/2025 8:46 PM CDT [facility] MPV 9.5 7.8 - 11.4 fL 02/02/2025 8:46 PM CDT [facility] Neutrophil % 64.1 41.0 - 74.0 % 02/02/2025 8:46 PM CDT [facility] Lymphocyte % 28.0 17.0 - 47.0 % 02/02/2025 8:46 PM CDT [facility] Monocyte % 6.5 3.0 - 11.0 % 02/02/2025 8:46 PM CDT [facility] Eosinophil % 1.0 0.0 - 7.0 % 02/02/2025 8:46 PM CDT [facility] Basophil % 0.2 0.0 - 1.6 % 02/02/2025 8:46 PM CDT [facility] Immature Granulocytes % 0.2 0.0 - 1.0 % 02/02/2025 8:46 PM CDT [facility] Neutrophil Absolute 5.66 1.60 - 7.50 x10E9/L 02/02/2025 8:46 PM CDT [facility] Lymphocyte Absolute 2.47 1.00 - 4.40 x10E9/L 02/02/2025 8:46 PM CDT [facility] Monocyte Absolute 0.57 0.15 - 1.00 x10E9/L 02/02/2025 8:46 PM CDT [facility] Eosinophil Absolute 0.09 0.00 - 0.60 x10E9/L 02/02/2025 8:46 PM CDT [facility] Basophil Absolute 0.02 0.00 - 0.13 x10E9/L 02/02/2025 8:46 PM CDT [facility] Blood BLOOD SPECIMEN / Unknown Venipuncture / Unknown 02/02/2025 8:41 PM CDT 02/02/2025 8:44 PM CDT Eder Pennington PA-C LAB - HEMATOLOGY ORDERAB LES Final Result [facility] [address] [place] [address] * (ABNORMAL) COMPREHENSIVE METABOLIC PANEL (02/02/2025 8:41 PM CDT) [facility] Glucose 99 70 - 99 mg/dL 02/02/2025 9:03 PM CDT [facility] Sodium 139 136 - 145 mmol/L 02/02/2025 9:03 PM CDT [facility] Potassium 3.3(L) 3.5 - 5.1 mmol/L 02/02/2025 9:03 PM CDT [facility] Chloride 109(H) 98 - 107 mmol/L 02/02/2025 9:03 PM [facility] CO2 19(L) 22 - 29 mmol/L 02/02/2025 9:03 PM [facility] Calcium 9.0 8.4 - 10.4 mg/dL 02/02/2025 9:03 PM [facility] Anion Gap 11 6 - 16 mmol/L 02/02/2025 9:03 PM [facility] BUN 12 5.3 - 18.7 mg/dL 02/02/2025 9:03 PM [facility] Creatinine 0.75 0.57 - 1.11 mg/dL 02/02/2025 9:03 PM [facility] Alkaline Phosphatase 55 40 - 150 U/L 02/02/2025 9:03 PM [facility] ALT 29 6 - 57 U/L 02/02/2025 9:03 PM [facility] AST 22 10 - 48 U/L 02/02/2025 9:03 PM [facility] Protein Total 7.1 6.4 - 8.3 gm/dL 02/02/2025 9:03 PM [facility] Albumin 4.4 3.1 - 4.5 gm/dL 02/02/2025 9:03 PM [facility] Bilirubin Total 1.0 0.2 - 1.2 mg/dL 02/02/2025 9:03 PM [facility] eGFR by CKD-EPI >90 >=90 mL/min/1.7 3 m2 02/02/2025 9:03 PM [facility] Comment:Estimated Glomerular Filtration Rate (eGFR) calculated using the CKD-EPI Creatinine Equation (2020), per the National Kidney Foundation and [place] [employer] of Nephrology recommendations. Blood BLOOD SPECIMEN / Unknown Venipuncture / Unknown 02/02/2025 8:41 PM CDT 02/02/2025 8:44 PM CDT us Eder Pennington PA-C LAB - CHEMISTRY ORDERABL ES Final Result [facility] [address] [facility] [place] [address] * HCG BLOOD QUALITATIVE (02/02/2025 8:41 PM CDT) HCG Qual Serum Negative Negative 02/02/2025 8:58 PM CDT [facility] Blood BLOOD SPECIMEN / Unknown Venipuncture / Unknown 02/02/2025 8:41 PM CDT 02/02/2025 8:44 PM CDT Narrative [facility] - 02/02/2025 8:58 PM CDT Specimens containing human anti-mouse antibodies may exhibit false positive or false negative results. If qualitative interpretation is inconsistent with clinical evaluation, consider confirmation by an alternative hCG method. Eder Pennington PA-C LAB - CHEMISTRY ORDERABL ES Final Result [facility] [address] [place] [address] from Last 3 Months Insurance [facility]
--- OUTSIDE RECORDS SUMMARY | 2025-02-17 14:48 | XMS_ITS | Clinical Summary ---
Author Organization [facility] Address [address] [place] [address] Care Team Providers Care Crate Builder Name Role Phone Kandi Elin FRANKLIN Primary Care Provider [phone] Allergies Active Allergy Reactions Criticality Noted Date Comments Cariprazine Seizure Medium 11/03/2024 Vraylar Medications lithium CR (LITHOBID) 450 MG tablet Take 2 tablets (900 mg total) by mouth nightly at bedtime. Active LORazepam (ATIVAN) 0.5 MG tablet Take 1 tablet (0.5 mg total) by mouth 3 (three) times daily. Active divalproex ER (DEPAKOTE) 500 MG 24 [...] Noted Date Diagnosed Date Pelvic pain 08/12/2021 ([facility]/HCC) 04/08/2020 Acute left ankle pain 03/10/2019 Acute cystitis without hematuria 02/27/2019 Assessment & Plan (02/27/2019 9:27 AM CDT): Positive dip stick. Will treat with nitrofurantoin. Will call if not sensitive and need to change. Otherwise she will call if no improvement Chronic tension-type headache, not intractable 1 07/27/2017 Assessment & Plan (05/27/2018 12:57 PM ELECTRONIC IMAGER): Suspect some medication over use contributing. She is already on topamax Stop taking tylenol and drinking caffeine and may have worsening fo headache for next 48 hrs but then should improve Osteochondral defect of ankle 10/03/2017 Essential hypertension 03/12/2017 Assessment & Plan (05/27/2018 12:58 PM ELECTRONIC IMAGER): Currently controlled off HCTZ. Check BP at home and call if > 140/100 consistently Depression 07/05/2016 Overview (05/11/2018): Description: Soha Marshall is her psychiatrist. Assessment & Plan (05/27/2018 12:58 PM ELECTRONIC IMAGER): Stable. Managed by psychiatrist Psychogenic nonepileptic seizure 07/05/2016 Syncope 01/23/2013 Anxiety Encounters Date Type Department Care Team Description 01/07/2025 7:34 PM CDT - 01/07/2025 9:31 PM CDT Emergency [facility] Emergency Room [address] [place] [address] Ced Douglas MD Skin Problem Discharge Disposition: Home or Self Care (Routine Discharge) 01/07/2025 Travel 12/22/2024 7:20 AM CDT Office Visit [facility] Medical Group Multispecialty Care - [facility] [address], [address] [place] [phone] Gildardo Chao MD Follow Up (Pseudotumor cerebri); Headache (Migraine days per week: 2-3) 12/22/2024 Travel 12/15/2024 MyChart Message Enc [facility] Medical [facility] Multispecialty Care - [facility] [address], [address] [place] [address] Tara, [facility] Provider Results 12/10/2024 11:00 AM CDT - 12/10/2024 11:59 PM CDT Hospital Encounter [facility] Open MRI [address] [place] [address] Gildardo Chao MD Discharge Disposition: Home or Self Care (Routine Discharge) 12/10/2024 Travel 11/23/2024 6:32 PM CDT - 11/23/2024 9:26 PM CDT Emergency [facility] Emergency Room [address] [place] [address] Yolie Simpson MD Flu Like Symptoms Discharge Disposition: Home or Self Care (Routine Discharge) 11/23/2024 Travel 11/21/2024 Results [facility] [address], [address] [place] [phone] Gildardo Chao MD IR LUMB PUNCTURE DIAGNOSTIC, CELL COUNT, CSF, GLUCOSE CSF, Additional followed-up results: 9 11/19/2024 8:27 AM CDT - 11/19/2024 3:30 PM CDT Hospital Encounter [facility] [place] [address] Gildardo Chao MD Discharge Disposition: Home or Self Care (Routine Discharge) 11/19/2024 8:25 AM CDT Hospital Encounter [facility] [place] [address] Ramu Haro MD Discharge Disposition: Home or Self Care (Routine Discharge) 11/19/2024 Travel 11/17/2024 1:55 PM CDT - 11/17/2024 11:59 PM CDT Hospital Encounter [facility] [address] [facility] [place] [address] Gildardo Chao MD Discharge Disposition: Home or Self Care (Routine Discharge) 11/17/2024 Travel 11/17/2024 Telephone [facility] [place] [address] [place] [address] Gildardo Chao MD Information; Callback from Last 3 Months Immunizations Immunization Administration [...] Description 03/24/2025 8:40 AM CDT Office Visit [facility] Medical Group Multispecialty Care - [facility] [address], [address] [place] [phone] Gildardo Chao MD [address] [place] [address] 03/30/2025 2:15 PM CDT Office Visit [facility] [address] [place] [phone] Marquis Salmeron MD [facility]. [address] [place] [address] 05/18/2025 1:20 PM ELECTRONIC IMAGER Office Visit [facility] Medical [facility] Multispecialty Care - [facility] [address], [address] [place] [phone] Gildardo Chao MD [address] [place] [address] Health Maintenance Due Date Last Done Comments Annual Physical 2000 Hepatitis C 11/10/2015 Cervical Cancer Screening Pap Smear (Age 21 to 29) Every 3 Years 09/04/2022 09/04/2019 Cervical Cancer Screening 09/04/2022 COVID-19 Vaccine ( season) 2024 HPV Vaccines (1 - 3-dose SCDM series) 2024 DTaP, Tdap and Td Vaccines (10 - Td or Tdap) 02/10/2030 02/11/2020, 11/16/2016, 02/02/2013, Additional history exists Hepatitis B Vaccines Completed 08/18/1998, 1997, 1997 Pneumococcal Vaccine: Pediatrics (0 to 5 Years) and At-Risk Patients (6 to 49 Years) Aged Out 03/04/2001 No longer eligible based on patient's age to complete this topic Meningococcal Vaccine Completed 07/28/2014, 009 PHQ-2 (Physician [place]) Completed 11/03/2024 Meningococcal B Vaccine Aged Out No l onger eligible based on patient's age to complete this topic RSV Immunizations Under 20 Months Aged Out No longer eligible based on patient's age to complete this topic Medical Devices Implanted Type Area Keyseating Machine Set Up Operator Device Identifier Shelf Expiration Date Model / Serial / Lot Implant System Internalbrace Ligament [employer] - [id number] Implanted:Qty: 1 on 02/28/2018 by Jermain Simeon MD at [facility] Left: Ankle [employer] 10/14/2019 [id number] / / [id number] Biocomposite Suture [place], [place],Short Dx Implanted:Qty: 2 on 02/28/2018 by Jermain Simeon MD at [facility] Left: Ankle [employer] 06/14/2018 [id number] / / [id number] Procedures Procedure Name Priority Date/Time Associated Diagnosis [...] 11/19/2024 10:47 AM CDT MS (multiple sclerosis) ([facility] HHS/HCC) MYELIN BASIC PROTEIN, CSF Routine 11/19/2024 10:47 AM CDT MS (multiple sclerosis) ([facility] HHS/HCC) PROTEIN TOTAL CSF Routine 11/19/2024 10: 47 AM CDT MS (multiple sclerosis) ([facility] HHS/HCC) GLUCOSE CSF Routine 11/19/2024 10:47 AM CDT MS (multiple sclerosis) ([facility] HHS/HCC) CELL COUNT, CSF Routine 11/19/2024 10:47 AM CDT MS (multiple sclerosis) ([facility] HHS/HCC) IGG SYNTHESIS RATE *CSF AND SERUM REQUIRED* Routine 11/19/2024 10:47 AM CDT MS (multiple sclerosis) ([facility] HHS/HCC) PLATELET COUNT, AUTO Routine 11/19/2024 8:31 AM CDT Pseudotumor PARTIAL THROMBOPLASTIN TIME,PTT Routine 11/19/2024 8:31 AM CDT Pseudotumor PROTHROMBIN TIME, VENOUS Routine 11/19/2024 8:31 AM CDT Pseudotumor MRI CERV SPINE WWO CON Routine 3:56 PM CDT MS (multiple sclerosis) (CMS/HCC HHS/HCC) MRI THOR SPINE WWO CON Routine 3:36 PM CDT MS (multiple sclerosis) (CMS/HCC HHS/HCC) OUTSIDE CYTOPATH CERV/VAG INTERPRET (PAP) (SCAN ORDER) 09/04/2019 from Last 3 Months or Most Recently Relevant to Health Maintenance Results * (ABNORMAL) COMPREHENSIVE METABOLIC PANEL (01/07/2025 7:54 PM CDT) GLUCOSE 91 70 - 99 MG/DL 01/07/2025 8:15 PM CDT [facility] BUN 5(L) 7 - 18 MG/DL 01/07/2025 8:15 PM CDT [facility] CREATININE S/P/B 0.72 0.55 - 1.02 MG/DL 01/07/2025 8:15 PM CDT [facility] SODIUM S/P/B 135(L) 136 - 145 MMOL/L 01/07/2025 8:15 PM CDT [facility] POTASSIUM S/P/B 3.7 3.5 - 5.1 MMOL/L 01/07/2025 8:15 PM T [facility] CHLORIDE S/P/B 102 100 - 108 MMOL/L 01/07/2025 8:15 PM CDT [facility] CO2 23.1 21 - 32 MMOL/L 01/07/2025 8:15 PM T [facility] CALCIUM S/P/B 8.8 8.5 - 10.1 MG/DL 01/07/2025 8:15 PM CDT [facility] BILIRUBIN TOTAL S/P/B 1.3(H) 0.2 - 1.2 MG/DL 01/07/2025 8:15 PM CDT [facility] TOTAL PROTEIN S/P/B 7.0 6.4 - 8.2 G/DL 01/07/2025 8:15 PM CDT [facility] ALBUMIN S/P/B 3.6 3.4 - 5.0 G/DL 01/07/2025 8:15 PM CDT [facility] AST 31 15 - 37 U/L 01/07/2025 8:15 PM CDT [facility] ALT 49 14 - 55 U/L 01/07/2025 8:15 PM CDT [facility] ALKALINE PHOSPHATASE S/P/B 73 50 - 136 U/L 01/07/2025 8:15 PM CDT [facility] ANION GAP 9.9 5 - 15 MMOL/L 01/07/2025 8:15 PM CDT [facility] BUN CREATININE RATIO 6.9 6 - 26 01/07/2025 8:15 PM CDT [facility] A/G RATIO 1.1 1.0 - 2.0 RATIO 01/07/2025 8:15 PM CDT [facility] GFR ESTIMATE >90 >90 ML/MIN/1.7 3 M2 01/07/2025 8:15 PM CDT [facility] Comment: NOTE: eGFR is not calculated for patients <18 years of age. This is an estimated GFR calculation using the new CKD EPI creatinine equation without race and so does not require a correction factor for race. This estimated GFR should not be used for calculating drug doses. 01/07/2025 7:54 PM CDT us Ced Douglas MD LABORATORY Final Resul t [facility] [address] [place] [address], * (ABNORMAL) CBC W/DIFF AUTOMATED (01/07/2025 7:54 PM CDT) Only the most recent of2 resultswithin the time period is included. WBC 8.56 4.4 - 11.0 x10'3/uL 01/07/2025 8:02 PM [facility] RBC 5.01 4.50 - 5.10 x10'6/uL 01/07/2025 8:02 PM [facility] HGB 15.0 12.3 - 15.3 G/DL 01/07/2025 8:02 PM [facility] HCT 42.8 35.9 - 44.6 % 01/07/2025 8:02 PM [facility] MCV 85.4 80.0 - 96.0 FL 01/07/2025 8:02 PM [facility] MCH 29.9 25.3 - 30.9 PG 01/07/2025 8:02 PM [facility] MCHC 35.0(H) 31.0 - 34.1 G/DL 01/07/2025 8:02 PM [facility] RDW 12.1(L) 12.4 - 15.1 % 01/07/2025 8:02 PM [facility] PLT 230 151 - 353 x10'3/uL 01/07/2025 8:02 PM [facility] MPV 9.2(L) 9.6 - 12.0 FL 01/07/2025 8:02 PM [facility] RBC MORPHOLOGY NORMAL 01/07/2025 8:02 PM [facility] PLT MORPH. NORMAL 01/07/2025 8:02 PM [facility] WBC MORPHOLOGY NORMAL 01/07/2025 8:02 PM [facility] LYMPHOCYTES % 22.2 15.8 - 45.0 % 01/07/2025 8:02 PM [facility] NEUTROPHILS % 71.9 42.1 - 71.9 % 01/07/2025 8:02 PM CDT [facility] MONOCYTES % 4.7(L) 5.7 - 12.5 % 01/07/2025 8:02 PM CDT [facility] EOSINOPHILS 0.9 0.0 - 5.6 % 01/07/2025 8:02 PM CDT [facility] BASOPHILS 0.2 0.0 - 1.3 % 01/07/2025 8:02 PM CDT [facility] ABS. NEUTROPHILS 6.15(H) 1.40 - 6.00 x10'3/uL 01/07/2025 8:02 PM CDT [facility] IMMATURE GRANS % 0.1 0.0 - 0.5 % 01/07/2025 8:02 PM CDT [facility] ABS. LYMPHOCYTES 1.90 0.80 - 4.70 x10'3/uL 01/07/2025 8:02 PM CDT [facility] 01/07/2025 7:54 PM CDT us Ced Douglas MD LABORATORY Final Resul t Performing Organization Address City/[facility]/ZIP Co de Phone Number [facility] [address] [place] [address], * CK (CPK) (01/07/2025 7:54 PM CDT) CPK 53 26 - 192 U/L 01/07/2025 8:15 PM CDT [facility] 01/07/2025 7:54 PM CDT us Ced Douglas MD LABORATORY Final Resul t [facility] [address] [place] [address], * MRI ORBITS WWO CON (12/10/2024 12:25 PM CDT) Anatomical Region Laterality Modality Orbits Magnetic Resonan ce 12/14/2024 11:1 4 AM CDT Impressions 12/14/2024 11:17 AM CDT IMPRESSION: 1. Normal appearance of the brain and orbits. 2. Patent dural venous sinus system. Referred By: GILDARDO CHAO Interpreted By: Mike Aceves MD, 12/14/2024 11:14 AM Narrative 12/14/2024 11:17 AM CDT [address] [address] EXAMINATION: MRI BRAIN WWO CON, MRV HEAD WWO, MRI ORBITS WWO CON, 12/14/2024 11:14 AM TECHNIQUE: Multiplanar multisequence magnetic resonance images of the brain and orbits were obtained before and after the administration of 19 mL of Dotarem injected through the IV, without evidence of adverse reaction. Sagittal 2-D axpc-xb-qsnlfp and postcontrast magnetic resonance images of the [...] Procedure Note Mike Aceves MD - 12/14/2024 [place] [address] [place] [address] EXAMINATION: MRI BRAIN WWO CON, MRV HEAD WWO, MRI ORBITS WWO CON, 1:14 AM TECHNIQUE: Multiplanar multisequence magnetic resonance images of thebrain and orbits were obtained before and after the administration of 19mL of Dotarem injected through the IV, without evidence of adversereaction. Sagittal 2-D jkxr-nh-[id number] and postcontrast magnetic resonanceimages of the dural [...] 11:14 AM Narrative 12/14/2024 11:17 AM CDT [place] [id number] EXAMINATION: MRI BRAIN WWO CON, MRV HEAD WWO, MRI ORBITS WWO CON, 12/14/2024 11:14 AM TECHNIQUE: Multiplanar multisequence magnetic resonance images of the brain and orbits were obtained before and after the administration of 19 mL of Dotarem injected through the IV, without evidence of adverse reaction. Sagittal 2-D omeo-lr-ykqihg and postcontrast magnetic resonance images of the [...] Procedure Note Mike Aceves MD - 12/14/[address] [address] EXAMINATION: MRI BRAIN WWO CON, MRV HEAD WWO, MRI ORBITS WWO CON, 1:14 AM TECHNIQUE: Multiplanar multisequence magnetic resonance images of thebrain and orbits were obtained before and after the administration of 19mL of Dotarem injected through the IV, without evidence of adversereaction. Sagittal 2-D gauk-ld-flsjgo and postcontrast magnetic resonanceimages of the dural [...] 11:14 AM Narrative 12/14/2024 11:17 AM CDT [address] [address] EXAMINATION: MRI BRAIN WWO CON, MRV HEAD WWO, MRI ORBITS WWO CON, 12/14/2024 11:14 AM TECHNIQUE: Multiplanar multisequence magnetic resonance images of the brain and orbits were obtained before and after the administration of 19 mL of Dotarem injected through the IV, without evidence of adverse reaction. Sagittal 2-D hdfc-qi-rfswfn and postcontrast magnetic resonance images of the [...] Procedure Note Mike Aceves MD - 12/14/[address] [address] EXAMINATION: MRI BRAIN WWO CON, MRV HEAD WWO, MRI ORBITS WWO CON, 511:14 AM TECHNIQUE: Multiplanar multisequence magnetic resonance images of thebrain and orbits were obtained before and after the administration of 19mL of Dotarem injected through the IV, without evidence of adversereaction. Sagittal 2-D zdwt-bu-lmoizy and postcontrast magnetic resonanceimages of the dural [...] COLOR (U) YELLOW 11/23/2024 9:08 PM CDT [facility] TRANSPARENCY CLEAR 11/23/2024 9:08 PM CDT [facility] SPECIFIC GRAVITY (U) <1.005 1.000 - 1.030 11/23/2024 9:08 PM CDT [facility] U PH 6.5 5.0 - 9.0 11/23/2024 9:08 PM CDT [facility] LEUKOCYTES (U) NEGATIVE NEGATIVE 11/23/2024 9:08 PM CDT [facility] NITRITES NEGATIVE NEGATIVE 11/23/2024 9:08 PM T [facility] PROTEIN RANDOM (U) NEGATIVE NEGATIVE 11/23/2024 9:08 PM CDT [facility] GLUCOSE (U) NEGATIVE NEGATIVE 11/23/2024 9:08 PM T [facility] KETONES MG/DL (U) 1+(A) NEGATIVE 11/23/2024 9:08 PM CDT [facility] BILIRUBIN (U) NEGATIVE NEGATIVE 11/23/2024 9:08 PM CDT [facility] BLOOD (U) NEGATIVE NEGATIVE 11/23/2024 9:08 PM CDT [facility] WBC/HPF NONE SEEN 0 - 5 /HPF 11/23/2024 9:08 PM CDT [facility] RBC/HPF NONE SEEN 0 - 5 /HPF 11/23/2024 9:08 PM CDT [facility] EPI/HPF RARE /HPF 11/23/2024 9:08 PM CDT [facility] URINE SPECIMEN OBTAINED BY CLEAN CATCH PROCEDURE / Unknown 11/23/2024 8:48 PM CDT us Grabiel Hanson MD URINE ORDERABLES Final Res ult [facility] [address] [place] [address], * CORONAVIRUS (COVID-19) MOLECULAR (11/23/2024 7:00 PM CDT) CORONAVIRUS SARS COV 2 RNA NEGATIVE NEGATIVE 11/23/2024 7:33 PM CDT [facility] Comment: NEGATIVE RESULTS DO [...] SPECIMEN TYPE NASAL 11/23/2024 7:04 PM CDT [facility] NASOPHARYNGEAL SWAB / Unknown 11/23/2024 7:00 PM CDT us Yolie Simpson MD MICROBIOLOGY - GENERAL ORDERA BLES Final Result Performing Organization Address [facility]/ZIP Co de Phone Number [facility] [address] [place] [address], [place] [phone] * INFLUENZA A & B (11/23/2024 7:00 PM CDT) SPECIMEN TYPE NASOPHARYNX 11/23/2024 7:13 PM CDT [facility] INFLUENZA A NEGATIVE NEGATIVE 11/23/2024 7:34 PM CDT [facility] INFLUENZA B NEGATIVE NEGATIVE 11/23/2024 7:34 PM CDT [facility] NASAL NASOPHARYNGEAL SWAB / Unknown 11/23/2024 7:00 PM CDT us Yolie Simpson MD MICROBIOLOGY - GENERAL ORDERA BLES Final Result Performing Organization Address [facility] Co de Phone Number [facility] [address] [place] [address], [place] [phone] * STREP A RAPID (11/23/2024 7:00 PM CDT) Pathologist [facility] RAPID STREP TEST NEGATIVE NEGATIVE 11/23/2024 7:24 PM CDT [facility] STRUCTURE OF ANTERIOR PORTION OF NECK / Unknown 11/23/2024 7:00 PM CDT us Yolie Simpson MD MICROBIOLOGY - GENERAL ORDERA BLES Final Result Performing Organization Address [facility]/ZIP Co de Phone Number [facility] [address] [place] [address], [place] [phone] * (ABNORMAL) BASIC METABOLIC PANEL (11/23/2024 7:00 PM CDT) GLUCOSE 109(H) 70 - 99 MG/DL 11/23/2024 7:26 PM CDT [facility] BUN 10 7 - 18 MG/DL 11/23/2024 7:26 PM [facility] CREATININE S/P/B 1.06(H) 0.55 - 1.02 MG/DL 11/23/2024 7:26 PM [facility] SODIUM S/P/B 135(L) 136 - 145 MMOL/L 11/23/2024 7:26 PM [facility] POTASSIUM S/P/B 3.8 3.5 - 5.1 MMOL/L 11/23/2024 7:26 PM [facility] CHLORIDE S/P/B 99(L) 100 - 108 MMOL/L 11/23/2024 7:26 PM [facility] CO2 26.6 21 - 32 MMOL/L 11/23/2024 7:26 PM [facility] CALCIUM S/P/B 9.6 8.5 - 10.1 MG/DL 11/23/2024 7:26 PM [facility] ANION GAP 9.4 5 - 15 MMOL/L 11/23/2024 7:26 PM [facility] BUN CREATININE RATIO 9.4 6 - 26 11/23/2024 7:26 PM [facility] GFR ESTIMATE 74(L) >90 ML/MIN/1.7 3 M2 11/23/2024 7:26 PM [facility] Comment: NOTE: eGFR is not calculated for patients <18 years of age. This is an estimated GFR calculation using the new CKD EPI creatinine equation without race and so does not require a correction factor for race. This estimated GFR should not be used for calculating drug doses. 11/23/2024 7:00 PM CDT Yolie Simpson MD LABORATORY Final Result [facility] [address] [place] [address], [place] [phone] * CHORIONIC GONADOTROPIN HCG QL (11/23/2024 7:00 PM CDT) PREG SCREEN-SERUM NEGATIVE NEGATIVE 11/23/2024 7:40 PM CDT [facility] 11/23/2024 7:00 PM CDT Yolie Simpson MD LABORATORY Final Result [facility] [address] [place] [address], [place] [phone] * IR LUMB PUNCTURE DIAGNOSTIC (11/19/2024 10:58 [...] 10:44 AM Narrative 11/19/2024 11:24 AM CDT [facility] [address] [place], [place] [address] Procedure: IR Lumbar puncture diagnostic with imaging Exam Date/Time: 11/19/2024 8:26 AM Indication: 29 female presenting for image, puncture for pressure measurement and fluid collection for analysis. Pseudotumor Comparison: Lumbar spine radiographs 03/19/2024, Procedure technique and findings: Informed verbal and written consent was obtained with patient/patient's medical power of studio coordinator. The procedure was discussed including the rationale, [...] tolerated the procedure well. No immediate complication. Plastics Heat Welder: Dr. Haro Radiation dose Air Kerma: 9.9 mGy; 2 fluoroscopy images recorded Procedure Note Ramu Haro MD - 11/19/[address] [address] Procedure: IR Lumbar puncture diagnostic with imaging Exam Date/Time: 11/19/2024 8:26 AM Indication: 29 female presenting for image, puncture for pressuremeasurement and fluid collection for analysis. Pseudotumor Comparison: Lumbar spine radiographs 03/19/2024, Procedure technique and findings: Informed verbal and written consent was obtained with patient/patient'smedical power of studio coordinator. The procedure was discussed including therationale, alternatives, [...] and tolerated the procedure well. Noimmediate complication. Plastics Heat Welder: Dr. Haro Radiation dose Air Kerma: 9.9 [...] TUBE NUMBER 3 11/19/2024 12:24 PM CDT [facility] TOTAL VOLUME (CSF) 15.25 ML 11/19/2024 12:24 PM CDT [facility] COLOR (CSF) COLORLESS 11/19/2024 12:24 PM CDT [facility] CLARITY (CSF) CLEAR 11/19/2024 12:24 PM CDT [facility] RBC (CSF) 0 CELLS/UL 11/19/2024 12:24 PM CDT [facility] TOTAL NUCLEATED CELL (CSF) 2 0 - 5 CELLS/UL 11/19/2024 12:24 PM CDT [facility] LYMPHS (CSF) 71 % 11/19/2024 12:24 PM CDT [facility] OTHER MONONUCLEAR CELLS (CSF) 29 % 11/19/2024 12:24 PM CDT [facility] Comment: THE FOLLOWING MAY INCLUDE MONOCYTE/MACROPHAGE,PLASMA CELL,MESOTHELIAL CELL,BRONCHIAL LINING CELL,SYNOVIAL LINING CELL,VENTRICULAR LINING CELL,ENDOTHELIAL CELL,SQUAMOUS EPITHELIAL AND OTHER CELLS. CSF, LUMBAR 11/19/2024 10:4 7 AM CDT us Gildardo Chao MD BODY FLUIDS AND STOOLS OR DERABLES Final Result Performing Organization Address [facility] Co de Phone Number [facility] [address] [place] [address], [place] [phone] * GLUCOSE CSF (11/19/2024 10:47 AM CDT) GLUCOSE (CSF) 53 40 - 70 MG/DL 11/19/2024 11:42 AM CDT [facility] CSF, LUMBAR 11/19/2024 10:4 7 AM CDT us Gildardo Chao MD BODY FLUIDS AND STOOLS OR DERABLES Final Result Performing Organization Address [facility] Co de Phone Number [facility] [address] [place] [address], [place] [phone] * (ABNORMAL) PROTEIN TOTAL CSF (11/19/2024 10:47 AM CDT) TOTAL PROTEIN (CSF) 55(H) 15 - 45 MG/DL 11/19/2024 11:42 AM CDT [facility] CSF, LUMBAR 11/19/2024 10:4 7 AM CDT us Gildardo Chao MD BODY FLUIDS AND STOOLS OR DERABLES Final Result Performing Organization Address City/[facility] Co de Phone Number [facility] [address] [place] [address], [place] [phone] * IGG SYNTHESIS RATE *CSF AND SERUM REQUIRED* (11/19/2024 10:47 AM CDT) CSF IGG SYNTH RATE minus4.4 minus9.9- 3.3 mg/24 h 11/23/2024 1:29 AM CDT [facility] IGG INDEX (CSF) 0.46 <0.70 1:29 AM CDT [facility] Comment: The IgG Synthesis rate, CSF and IgG index, CSF are two formulae for estimating the amount of IgG produced in the central nervous system. Evidence of increased synthesis of IgG provides support for the diagnosis of multiple sclerosis. ALBUMIN (CSF) 18.1 8.0 - 42.0 mg/dL 11/23/2024 1:29 AM CDT [facility] BUCHANAN-SUSSY BECKER IGG (CSF) 2.2 0.8 - 7.7 mg/dL 11/23/2024 1:29 AM CDT [facility] JAN QUIGLEYY IMMUNOGLOBULIN G 1,230 600 - 1,640 mg/dL 11/23/2024 1:29 AM CDT [facility] QU[facility]LEYY ALBUMIN S/P/B 4.7 3.6 - 5.1 g/dL 11/23/2024 1:29 AM CDT [facility] BUCHANANParthaSUSSY LLY Comment: Test Performed by [employer] [facility], [employer] [facility], [address] [place] [address] Tristan Singleton M.D., Ph.D., Director of Laboratories , CLIA [id number] CSF & SERUM 11/19/2024 10:4 7 AM CDT us Gildardo Chao MD LABORATORY Final Res ult [facility] , * OLIGOCLONAL BANDS *CSF AND SERUM REQUIRED* (11/19/2024 10:47 AM CDT) Pathologist [facility] OLIGOCLONAL BANDS Absent Absent 025 9:43 AM CDT [facility] AHSAN MONSALVE Comment: No Oligoclonal bands are identified in the patient's CSF when compared to the corresponding serum sample. Oligoclonal bands are present in the CSF of more than 85% of patients with clinically definite multiple sclerosis (MS). To distinguish between oligoclonal bands in the CSF due to a peripheral gammopathy and oligoclonal bands due to local production in the ROLL FORM OPERATOR, serum and CSF should be tested simultaneously. Oligoclonal bands can however be observed in a variety of other diseases, e.g., subacute sclerosing panen- cephalitis, inflammatory polyneuropathy, ROLL FORM OPERATOR lupus, and brain tumors and infarctions. The clinical significance of a numerical band count, determined by isoelectric focusing, has not been definitively defined. The data should be interpreted in conjunction with all pertinent clinical and laboratory data for this patient. Test Performed by [employer], [facility], [address] [place] [address] Tristan Singleton M.D., Ph.D., Director of Laboratories , CLIA [id number] CSF & SERUM 11/19/2024 10:4 7 AM CDT Gildardo Chao MD BODY FLUIDS AND STOOLS OR DERABLES Final Result [facility] , * MYELIN BASIC PROTEIN, CSF (11/19/2024 10:47 AM CDT) Pathologist [facility] MYELIN BASIC PROTEIN (CSF) <2.0 <=4.0 mcg/L 11/25/2024 2:47 PM CDT [facility] AHSAN MONSALVE Comment: Result Interpretation < or= 4.0 mcg/L Negative 4.1-6.0 mcg/L Weakly Positive >6.0 mcg/L Positive This test was developed and its analytical performance characteristics have been determined by [employer], [place]. It has not been cleared or approved by the U.S. Food and Drug Administration. This assay has been validated pursuant to the CLIA regulations and is used for clinical purposes. Test Performed by [employer] [place], [employer] [facility], [address] [place], [place] Tristan Singleton M.D., Ph.D., Director of Laboratories , CLIA [id number] CSF, LUMBAR 11/19/2024 10:4 7 AM CDT Gildardo Chao MD BODY FLUIDS AND STOOLS OR DERABLES Final Result Performing Organization Address City/[facility]/ZIP Co de Phone Number [employer] [facility] [address] [place], [place] , [place] [phone] * PLATELET COUNT, AUTO (11/19/2024 8:31 AM CDT) PLT 254 130 - 400 x10'3/uL 11/19/2024 8:41 AM CDT [facility] MPV 9.6 9.3 - 12.2 FL 11/19/2024 8:41 AM CDT [facility] 11/19/2024 8:31 AM CDT Ramu Haro MD LABORATORY Final Result Performing Organization Address City/[facility]/ZIP Co de Phone Number [facility] [address] [place] [address], [place] [phone] * PTT, PARTIAL THROMBOPLASTIN TIME (11/19/2024 8:31 AM CDT) PTT 32.2 25.1 - 36.5 SEC 11/19/2024 8:59 AM CDT [facility] 11/19/2024 8:31 AM CDT Ramu Haro MD LABORATORY Final Result Performing Organization Address City/State/[facility] Co de Phone Number [facility] [address] [place] [address], * PROTIME/INR, VENOUS (11/19/2024 8:31 AM CDT) PROTIME 11.8 10.2 - 12.9 SEC 11/19/2024 8:59 AM CDT [facility] INR 1.0 11/19/2024 8:59 AM CDT [facility] Comment: Recommended INR Therapeutic Goals: 2.0-3.0 Routine Therapy 2.5-3.5 Mechanical Prosthetic Valves (High Risk) 11/19/2024 8:31 AM CDT Ramu Haro MD LABORATORY Final Result Performing Organization Address [facility] Co de Phone Number [facility] [address] [place] [address], [place] [phone] * MRI CERV SPINE WWO CON (11/17/2024 3:56 PM CDT) Anatomical Region Laterality Modality Spine Magnetic Resonan ce 11/22/2024 11:0 9 AM CDT Impressions 11/22/2024 11:21 AM CDT IMPRESSION: No significant abnormality identified. Ordered By: GILDARDO CHAO Interpreted By: Byron Gray MD, 11/22/2024 11:09 AM Narrative 11/22/2024 11:21 AM CDT [facility] [place] [address] Examination: MRI CERV SPINE WWO CON, MRI [...] Procedure Note Byron Gray MD - 11/22/[address] [address] Examination: MRI CERV SPINE WWO CON, MRI [...] gadolinium contrast material postcontrast axial and sagittal [id number] were obtained throughout the cervical and thoracic [...] tip with the distal tip at the [id number]. There is no evidence of abnormal enhancement [...] By: Byron Gray MD, 11/22/2024 11:09 AM Gildardo Chao MD MRI Final Res ult * MRI THOR SPINE WWO CON (11/17/2024 3:36 PM CDT) Anatomical Region Laterality Modality Spine Magnetic Resonan ce 11/22/2024 11:0 9 AM CDT Impressions 11/22/2024 11:21 AM CDT IMPRESSION: No significant abnormality identified. Ordered By: GILDARDO CHAO Interpreted By: Byron Gray MD, 11/22/2024 11:09 AM Narrative 11/22/2024 11:21 AM CDT [place] [address] [place] [address] Examination: MRI CERV SPINE WWO CON, MRI [...] Procedure Note Byron Gray MD - 11/22/2024 [facility] [address] [place] [address] Examination: MRI CERV SPINE WWO CON, MRI [...] gadolinium contrast material postcontrast axial and sagittal [id number] were obtained throughout the cervical and thoracic [...] tip with the distal tip at the S7zmicv. There is no evidence of abnormal enhancement [...] Most Recently Relevant to Health Maintenance Insurance SHAYLA Advance Directives * Full Code (Latest Code Status on File) Date Activated Date Inactivated Comments 04/08/2020 2:09 PM 04/11/2020 12:11 AM * Full Code Date Activated Date Inactivated Comments 04/01/2020 2:08 PM 04/01/2020 5:39 PM * Full Code Date Activated Date Inactivated Comments 03/01/2020 3:01 PM 03/01/2020 5:35 PM Care Teams Crate Builder Relationship Specialty Start Date End Date Elin Chau NP [address] [place] [address] [place] [phone] PCP - General NURSE PRACTITIONER 03/19/24
--- OUTSIDE RECORDS SUMMARY | 2025-02-17 14:48 | XMS_ITS | Encounter Summary ---
Author Organization [facility] Address [facility] [place] [address] Care Team Providers Care Inspector Exhaust Emissions Name Role Phone Airam Daneil NP Primary Care Provider Unav ailable Won Faustin MD Primary Care Provider [phone] Elin Chau NP Primary Care Provider [phone] Encounter Details Date Type Department Care Team (Late st Contact Info) Description 02/15/2021 [employer] Message Enc [facility] Family & Internal Medicine [address] [address] Airam Daniel NP RE: Question [...] Description 03/24/2025 8:40 AM CDT Office Visit [facility] [address] [facility], [address] [place] [address] Gildardo Chao MD [address] [place] [address] 03/30/2025 2:15 PM CDT Office Visit [facility] [address] [place] [phone] Marquis Salmeron MD Three [facility]. [address] [place] [address] 05/18/2025 1:20 PM SUPPLY OFFICER Office Visit [facility] [address] [facility], [address] [place] [address] Gildardo Chao MD [address] [place] [address] documented as of this encounter Visit Diagnoses Not on filedocumented in this encounter Additional Health Concerns Infection Onset Date Last Indicated Resolved Time COVID-19 Rule Out 06/07/2021 06/07/2021 06/07/2021 11:27 AM SUPPLY OFFICER COVID-19 Confirmed 06/07/2021 06/07/2021 12:32 AM SUPPLY OFFICER COVID-19 Rule Out 08/07/2023 08/07/2023 08/07/2023 9:37 AM SUPPLY OFFICER Influenza - Seasonal 08/07/2023 08/07/2023 024 12:33 AM SUPPLY OFFICER COVID-19 Rule Out 08/07/2023 08/07/2023 08/07/2023 12:46 PM SUPPLY OFFICER Respiratory Rule Out 11/23/2024 11/23/2024 025 7:34 PM CDT COVID-19 Rule Out 11/23/2024 11/23/2024 11/23/2024 7:33 PM CDT documented as of this encounter Care Teams Inspector Exhaust Emissions Relationship Specialty Start Date End Date Airam Daniel NP PCP - General NURSE PRACTITIONER 03/19/20 05/16/21 [place] [address] [place] [address] PCP - General FAMILY PRACTICE 05/17/21 03/18/24 Elin Chau NP [address] [place] [address] PCP - General NURSE PRACTITIONER 03/19/24 documented as of this encounter
--- OUTSIDE RECORDS SUMMARY | 2025-02-17 14:48 | XMS_ITS | Encounter Summary ---
Author Organization [facility] Address [address] [place] [address] Care Team Providers Care Roof Cement And Paint Maker Name Role Phone Lakshmi Flor MD Primary Care Provider Unavailab Airam Weinstein SANDING MACHINE BUFFER Primary Care Provider Unav ailable Won Faustin MD Primary Care Provider [phone] Elin Chau SANDING MACHINE BUFFER Primary Care Provider [phone] Encounter Details Date Type Department Care Team (Late Contact Info) Description 10/31/2014 Abstract [facility] CONVERSION [address] [place] [address] , Generic ConversionMD Social History Tobacco Use [...] Office Visit [facility] [address] [facility], [address] [place] [address] Gildardo Chao MD [address] [place] [address] 03/30/2025 2:15 PM CDT [facility] [address] [place] [phone] Marquis Salmeron MD Three [facility]. [address] [place] [address] 05/18/2025 1:20 PM DEPARTMENTAL SHIPPING CLERK Office Visit [facility] [address] [facility], [address] [place] [phone] Gildardo Chao MD [address] [place] [address] documented as of this encounter Visit Diagnoses Not on filedocumented in this encounter Additional Health Concerns Infection Onset Date Last Indicated Resolved Time COVID-19 Rule Out 06/07/2021 06/07/2021 06/07/2021 11:27 AM DEPARTMENTAL SHIPPING CLERK COVID-19 Confirmed 06/07/2021 06/07/2021 12:32 AM DEPARTMENTAL SHIPPING CLERK COVID-19 Rule Out 08/07/2023 08/07/2023 08/07/2023 9:37 AM DEPARTMENTAL SHIPPING CLERK Influenza - Seasonal 08/07/2023 08/07/2023 024 12:33 AM DEPARTMENTAL SHIPPING CLERK COVID-19 Rule Out 08/07/2023 08/07/2023 08/07/2023 12:46 PM DEPARTMENTAL SHIPPING CLERK Respiratory Rule Out 11/23/2024 11/23/2024 025 7:34 PM CDT COVID-19 Rule Out 11/23/2024 11/23/2024 11/23/2024 7:33 PM CDT documented as of this encounter Care Teams Roof Cement And Paint Maker Relationship Specialty Start Date End Date Lakshmi Flor MD PCP - General INTERNAL MEDICINE 09/27/17 03/18/20 Airam Daniel NP PCP - General NURSE PRACTITIONER 03/19/20 05/16/21 [place] [address] [place] [address] PCP - General FAMILY PRACTICE 05/17/21 03/18/24 Elin Chau NP [address] [place] [address] PCP - General NURSE PRACTITIONER 03/19/24 documented as of this encounter
--- OUTSIDE RECORDS SUMMARY | 2025-02-17 14:48 | XMS_ITS | Referral Summary ---
Author Organization [facility] Address [address] [place] [address] Care Team Providers Care Skin Care Consultant Name Role Phone Unknown, Notinfile Primary Care [...] 06/02/2024 Assessment & Plan (06/02/2024 11:51 AM ADMITTING INTERVIEWER): No papilledema on multiple exams, HVF and [...] on file Legal Sex Female 4:24 AM ADMITTING INTERVIEWER Gender Identity Not on file Sexual Orientation Not on file Last Filed Vital Signs Vital Sign Reading Time Taken Comments Blood Pressure 128/95 05/28/2024 3:31 PM ADMITTING INTERVIEWER Pulse 70 05/28/2024 3:31 PM ADMITTING INTERVIEWER Temperature 36.7 C (98.1 F) 05/28/2024 11:51 AM ADMITTING INTERVIEWER Respiratory Rate 16 05/28/2024 3:31 PM ADMITTING INTERVIEWER Oxygen Saturation 99% 05/28/2024 3:31 PM ADMITTING INTERVIEWER Inhaled Oxygen Concentration - - Weight 104.3 kg (229 lb 15 oz) 05/28/2024 11:51 AM ADMITTING INTERVIEWER Height 165.1 cm (5' 5) 05/28/2024 11:51 AM ADMITTING INTERVIEWER Body Mass Index 38.26 05/28/2024 11:51 AM ADMITTING INTERVIEWER Plan of Treatment Not on file Insurance Care Teams Skin Care Consultant Relationship Specialty Start Date End Date Unknown, Notinfile PCP - General 05/22/24
--- OUTSIDE RECORDS SUMMARY | 2025-02-17 14:48 | XMS_ITS | Patient Health Record ---
Author Organization [facility] Address [address] [place] [address] Care Team Providers Care Javascript Developer Name Role Phone Sally Matamoros Primary Care Provider Soha Coles Unavailable [phone] Angie Velazquez Unavailable [phone] Yanira Pineda Unavailable [phone] Latisha Palacios Unavailable [phone] Allergies Allergen (clinical drug ingredient) Drug/Non Drug Allergy documented on EMR Reaction Allergy Type Onset Date Status cariprazine Vraylar nausea and vomiting Drug Allergy Active Reason For Referral Reason Therapy, counseling Diagnosis 1 Bipolar affective di sorder (F31.9) Diagnosis 2 Generalized anxiety disorder (F41.1) Referral Organization [facility] Referring Provider First Name Sally Referring Provider Last Name Saturnino Referring Provider Speciality Psychiatry Referred Provider Specialty Behavioral [facility] General Notes Sally Matamoros 11:06:43 AM > Client with high levels of depression and anxiety. Reports passive SI, denies any plan or intent, but reports wanting to start therapy and have further support as soon as she is able. Please refer. Thank you. Clinical Notes Ahsan Pineda 08/14/2024 02:04:11 PM > Pharmacy Ancillary spoke with client who states she has an appointment scheduled next sunday. Pharmacy Ancillary will fidelina referral as addressed. 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 Stress is when someone feels tense, nervous, anxious, or can\t sleep at night because their mind is troubled Somewhat In the past year have you sp ent more than 2 nights in a row in a care home, chcf, intermediate center, or juvenile correctional facility? No [...] Status Risk Notes Problem Morbid obesity (disorder) (554995056) Morbid (severe) obesity due to excess calories (E66.01) Active confirmed Problem Generalized anxiety disorder (18841815) Generalized anxiety disorder (F41.1) Active confirmed Problem Tobacco dependence (47505592) Tobacco dependence (F17.200) Active confirmed Problem Anxiety (10529246) Anxiety (F41.9) Active confirmed Problem Bipolar affective disorder (83216043) Bipolar affective disorder (F31.9) Active confirmed Problem Depressive disorder (96678452) Depressive disorder (F32.9) Active confirmed Problem Posttraumatic stress disorder (65155334) Chronic post-traumatic stress disorder (PTSD) (F43.12) Active confirmed Problem Obesity (465269846) Obesity (BMI 30-39.9) (E66.9) Active confirmed Problem Sleep disturbance (86101207) Sleep disturbance, unspecified (G47.9) Active confirmed Problem Body mass index 40+ - severely obese (609328359) Body mass index (BMI) of 40.0-44.9 in [...] 10/07/2024 Encounters Encounter Location Date Provider Diagnosis [address] [address] 02/27/2024 Angie Velazquez Generalized anxiety disorder F41.1 ; Bipolar affective disorder F31.9 ; Chronic post-traumatic stress disorder (PTSD) F43.12 ; Sleep disturbance, unspecified G47.9 ; Cannabis use disorder F12.90 and Medication monitoring encounter Z51.[address] [address] 03/26/2024 Sally Matamoros Generalized anxiety disorder F41.1 ; Bipolar affective disorder F31.9 ; Chronic post-traumatic stress disorder (PTSD) F43.12 ; Sleep disturbance, unspecified G47.9 ; Cannabis use disorder F12.90 and Medication monitoring encounter Z51.[address] [address] 05/14/2024 Sally Matamoros Generalized anxiety disorder F41.1 ; Bipolar affective disorder F31.9 ; Chronic post-traumatic stress disorder (PTSD) F43.12 ; Sleep disturbance, unspecified G47.9 ; Cannabis use disorder F12.90 and Medication monitoring encounter Z51.[address] [address] 06/02/2024 Sally Matamoros Bipolar affective disorder F31.9 ; Generalized anxiety disorder F41.1 ; Chronic post-traumatic stress disorder (PTSD) F43.12 ; Sleep disturbance, unspecified G47.9 ; Cannabis use disorder F12.90 and Medication monitoring encounter Z51.[address] [address] 08/13/2024 Sallyadi Matamoros Bipolar affective disorder F31.9 ; Generalized anxiety disorder F41.1 ; Chronic post-traumatic stress disorder (PTSD) F43.12 ; Sleep disturbance, unspecified G47.9 ; Cannabis use disorder F12.90 and Medication monitoring encounter Z51.[address] [address] 09/03/2024 Sally Matamoros Bipolar affective disorder F31.9 ; Generalized anxiety disorder F41.1 ; Chronic post-traumatic stress disorder (PTSD) F43.12 ; Sleep disturbance, unspecified G47.9 ; Cannabis use disorder F12.90 and Medication monitoring encounter Z51.[address] [address] 10/01/2024 Sally Matamoros Bipolar affective disorder F31.9 ; Generalized anxiety disorder F41.1 ; Chronic post-traumatic stress disorder (PTSD) F43.12 ; Sleep disturbance, unspecified G47.9 ; Cannabis use disorder F12.90 and Medication monitoring encounter Z51.81 [address] [place] [place] [address] 10/07/2024 Sallyadi Matamoros Bipolar affective disorder F31.9 ; Generalized anxiety disorder F41.1 ; Chronic post-traumatic stress disorder (PTSD) F43.12 ; Sleep disturbance, unspecified G47.9 ; Cannabis use disorder F12.90 and Medication monitoring encounter Z51.[address] [address] 10/15/2024 Latisha [place] Anxiety F41.9 On License Of [facility] [address] [place] [address] 10/21/2024 Sally Matamoros Bipolar affective disorder F31.9 ; Generalized anxiety disorder F41.1 ; Chronic post-traumatic stress disorder (PTSD) F43.12 ; Sleep disturbance, unspecified G47.9 ; Cannabis use disorder F12.90 and Medication monitoring encounter Z51.81 On License Of [facility] [address] [place] [address] 11/04/2024 Sally Matamoros Bipolar affective disorder F31.9 ; Generalized anxiety disorder F41.1 ; Chronic post-traumatic stress disorder (PTSD) F43.12 ; Sleep disturbance, unspecified G47.9 ; Cannabis use disorder F12.90 and Medication monitoring encounter Z51.[address] [place] [address] 12/25/2024 Sally Matamoros Bipolar affective disorder F31.9 ; Generalized anxiety disorder F41.1 ; Chronic post-traumatic stress disorder (PTSD) F43.12 ; Sleep disturbance, unspecified G47.9 ; Cannabis use disorder F12.90 and Medication monitoring encounter Z51.[address] [place] [address] 01/15/2025 Sally Matamoros Bipolar affective disorder F31.9 ; Generalized anxiety disorder F41.1 ; Chronic post-traumatic stress disorder (PTSD) F43.12 ; Sleep disturbance, unspecified G47.9 ; Cannabis use disorder F12.90 and Medication monitoring encounter Z51.[address] [address] 02/28/2024 Angie Velazquez Bipolar affective disorder F31.[address] [place] [address] 03/26/2024 Sally Matamoros [address] [place] [address] 05/14/2024 Portis Saturnino [address] [address] 05/19/2024 Sally Matamoros Bipolar affective disorder F31.9 [facility] [address] [place] [address] 08/13/2024 Sally Matamoros [facility] [address] [place] [address] 08/14/2024 Sally Matamoros [facility] [address] [place] [address] 08/14/2024 Yanira Pineda [address] [place] [address] 08/26/2024 Sally Matamoros Bipolar affective disorder F31.[address] [place] [address] 10/01/2024 Sally Matamoros [address] [place] [address] 10/01/2024 Sally Matamoros [address] [place] [address] 10/01/[address]nan [address] [place] [address] 10/10/2024 Sally Matamoros [address] [place] [address] 10/13/2024 Sally Matamoros [address] [place] [address] 10/15/2024 Sally Matamoros [address] [facility] [address] 10/16/2024 Sally Matamoros [address] [place] [address] 10/30/2024 Sally Matamoros [address] [place] [address] 12/18/2024 Sally Matamoros Generalized anxiety disorder F41.1 [facility] [address] [place] [address] 12/25/2024 Sally Matamoros [address] [facility] [address] 10/17/[address]nan [address] [facility] [place] [address] 11/11/2024 Sally Matamoros Bipolar affective disorder F31.[address] [facility] [place] [address] 12/07/2024 Sally Manzanonnan [address] [place] [address] 12/07/2024 Sallyadi Matamoros Generalized anxiety disorder F41.1 [...] 06/02/2024 Bipolar affective disorder (ICD-10 - F31.9) [place] agreement to continue current regimen Past: Seroquel Past trials: Seroquel- headache at higher doses. Abilify- just stopped working. Retried Abilify and felt shaky. Risperdal- SE not tolerable. Topamax- headache, slurrred words per client- hx of doing well on Topamax. Client reports SI on lamotrigine. Discussed [employer] 08/13/2024 Bipolar affective disorder (ICD-10 - F31.9) Start lithium. Take as prescribed. Discussed uses for bipolar depression with SI. Reviewed risks associated like toxicity and water intake, cardiovascular changes. Educated on monitoring weight, kidney function and therapeutic blood trough levels. [place] [facility]: Have lithium level drawn after taking [...] Topamax. Client reports SI on lamotrigine. Discussed [employer] 08/26/2024 Bipolar affective disorder (ICD-10 - F31.9) 09/03/2024 Bipolar affective disorder (ICD-10 - F31.9) Recent labwork at 0.3 level- Increase lithium. Take as prescribed. Discussed uses for bipolar depression with SI. Reviewed risks associated like toxicity and water intake, cardiovascular changes. Educated on monitoring weight, kidney function and therapeutic blood trough levels. [place] [facility]: Have lithium level drawn after taking [...] Topamax. Client reports SI on lamotrigine. Discussed [employer] 10/01/2024 Bipolar affective disorder (ICD-10 - F31.9) Will request hospital records, decreasing dose and monitoring, get lab Sunday morning to keep close eye on levels. Labs to [facility] Past: Seroquel Past trials: Seroquel- headache at higher doses. Abilify- just stopped working. Retried Abilify and felt shaky. Risperdal- SE not tolerable. Topamax- headache, slurrred words per client- hx of doing well on Topamax. Client reports SI on lamotrigine. Discussed [employer] 10/07/2024 Bipolar affective disorder (ICD-10 - F31.9) Past: Seroquel Past trials: Seroquel- headache at higher doses. Abilify- just stopped working. Retried Abilify and felt shaky. Risperdal- SE not tolerable. Topamax- headache, slurrred words per client- hx of doing well on Topamax. Client reports SI on lamotrigine. Discussed [employer] 10/15/2024 Anxiety (ICD-10 - F41.9) 10/21/2024 Bipolar [...] or pancreas dysfunction/failure. Labs in 1 week. [place] weaned, stop today. Past: Seroquel Past trials: [...] or be administered own oral medications per [facility] protocols. Provided informed consent with understanding of [...] May also contact the 24-hour crisis hotline ([facility]), refer to the closest emergency room or [...] May also contact the 24-hour crisis hotline ([facility]), refer to the closest emergency room or [...] May also contact the 24-hour crisis hotline ([facility]), refer to the closest emergency room or [...] May also contact the 24-hour crisis hotline ([facility]), refer to the closest emergency room or [...] May also contact the 24-hour crisis hotline ([facility]), refer to the closest emergency room or [...] May also contact the 24-hour crisis hotline ([facility]), refer to the closest emergency room or [...] treatment plan and follow up. 10/15/2024 Other Pharmacy Ancillary met with client via telehealth to discuss referral. The singer songwriter encouraged and engaged in critical thinking of [...] May also contact the 24-hour crisis hotline ([facility]), refer to the closest emergency room or [...] May also contact the 24-hour crisis hotline ([facility]), refer to the closest emergency room or [...] May also contact the 24-hour crisis hotline ([facility]), refer to the closest emergency room or [...] May also contact the 24-hour crisis hotline ([facility]), refer to the closest emergency room or [...] AIMS, or vital signs. Plan Of Treatment No Information Insurance Providers Payer Name Payer Address Payer Phone Subscriber Number Group Number Insured Name Patient Relationship to Insured Coverage Start Date Coverage End Date [facility] [facility] [address] [place] [address] [id number] Elizabeth Lim Self - patient is the insured 2 [facility] Attn Claims Department [address] [place] [address] [phone] Elizabeth Lim Self - patient is the insured 6 1 [facility] Attn Claims Department [address] [place] [address] [phone] Kuhner, Elizabeth Self - patient is the insured 2 1 [employer] [address] [place] [address] [id number] Elizabeth Lim Self - patient is the insured 2 [employer] [address] [place] [address] [id number] Elizabeth Lim Self - patient is the insured 5 Medical (General) History Medical History History ICD Code Anxiety Bipolar disorder Major depressive disorder, single episod e, unspecified F32.9 Seizures R56.9 Surgical History Surgery Date(Month/Year) 01/2017 appendectomy Hospitalization History Reason Date(Month/Year) Seizure hospitalization at [facility] 10/05/24
--- OUTSIDE RECORDS SUMMARY | 2025-02-17 14:48 | XMS_ITS | Clinical Summary ---
Author Organization [facility] Address [address] [place] [address] Care Team Providers Care Cheese Packer Name Role Phone Unknown, Notinfile Primary Care [...] 06/02/2024 Assessment & Plan (06/02/2024 11:51 AM TILTING SAW OPERATOR): No papilledema on multiple exams, HVF and [...] on file Legal Sex Female 4:24 AM TILTING SAW OPERATOR Gender Identity Not on file Sexual Orientation Not on file Obstetrics History Last Filed Vital Signs Vital Sign Reading Time Taken Comments Blood Pressure 128/95 05/28/2024 3:31 PM TILTING SAW OPERATOR Pulse 70 05/28/2024 3:31 PM TILTING SAW OPERATOR Temperature 36.7 C (98.1 F) 05/28/2024 11:51 AM TILTING SAW OPERATOR Respiratory Rate 16 05/28/2024 3:31 PM TILTING SAW OPERATOR Oxygen Saturation 99% 05/28/2024 3:31 PM TILTING SAW OPERATOR Inhaled Oxygen Concentration - - Weight 104.3 kg (229 lb 15 oz) 05/28/2024 11:51 AM TILTING SAW OPERATOR Height 165.1 cm (5' 5) 05/28/2024 11:51 AM TILTING SAW OPERATOR Body Mass Index 38.26 05/28/2024 11:51 AM TILTING SAW OPERATOR Plan of Treatment Health Maintenance Due Date Last Done Comments Cervical Cancer Screening 1997 Depression Screening 1997 Hepatitis C Screening 1997 Regular Well Visit/Exam 18-64 11/10/2015 HPV Vaccines (1 - 3-dose SCD M series) 2024 Influenza Vaccine (#1) 2025 7, 07/05/2016, 08/01/2013, Additional history exists DTaP/Tdap/Td Vaccine (11 - T d or Tdap) 02/10/2030 02/11/2020, 11/16/2016, 02/02/2013, Additional history exists Hepatitis B Screening Completed 08/18/1998 , 1997, 1997 Pneumococcal vaccine <65 Completed 03/04/2001 Varicella Vaccines Completed 01/27/2009, 06/02/1999 Insurance Care Teams Cheese Packer Relationship Specialty Start Date End Date Unknown, Notinfile PCP - General 05/22/24
--- OUTSIDE RECORDS SUMMARY | 2025-02-17 14:48 | XMS_ITS | Encounter Summary ---
Author Organization [facility] Address [address] [place] [address] Care Team Providers Care Revenue Accountant Name Role Phone Lakshmi Flor MD Primary Care Provider Unavailab Airam Weinstein FARM LABOR CONTRACTOR Primary Care Provider Unav ailable Won Faustin MD Primary Care Provider [phone] Elin Chau FARM LABOR CONTRACTOR Primary Care Provider [phone] Encounter Details Date Type Department Care Team (Late Contact Info) Description 07/28/2016 Abstract [facility] CONVERSION [address] [place] [address] , Generic ConversionMD Social History Tobacco Use [...] [facility] Medical [facility] Multispecialty Care - [facility] [address] [facility], [address] [place] [address] Gildardo Chao MD [address] [place] [address] 03/30/2025 2:15 PM CDT [facility] [address] [place] [address] Marquis Salmeron MD [address] [place]. [address] [place] [address] 05/18/2025 1:20 PM LABORATORY MACHINIST Office Visit [facility] Medical Group Multispecialty Care - [facility] [address] [facility], [address] [place] [address] Gildardo Chao MD [address] [place] [address] documented as of this encounter Visit Diagnoses Not on filedocumented in this encounter Additional Health Concerns Infection Onset Date Last Indicated Resolved Time COVID-19 Rule Out 06/07/2021 06/07/2021 06/07/2021 11:27 AM LABORATORY MACHINIST COVID-19 Confirmed 06/07/2021 06/07/2021 12:32 AM LABORATORY MACHINIST COVID-19 Rule Out 08/07/2023 08/07/2023 08/07/2023 9:37 AM LABORATORY MACHINIST Influenza - Seasonal 08/07/2023 08/07/2023 024 12:33 AM LABORATORY MACHINIST COVID-19 Rule Out 08/07/2023 08/07/2023 08/07/2023 12:46 PM LABORATORY MACHINIST Respiratory Rule Out 11/23/2024 11/23/2024 025 7:34 PM CDT COVID-19 Rule Out 11/23/2024 11/23/2024 11/23/2024 7:33 PM CDT documented as of this encounter Care Teams Revenue Accountant Relationship Specialty Start Date End Date Lakshmi Flor MD PCP - General INTERNAL MEDICINE 09/27/17 03/18/20 Airam Daniel NP PCP - General NURSE PRACTITIONER 03/19/20 05/16/21 [place] [address] [place] [address] PCP - General FAMILY PRACTICE 05/17/21 03/18/24 Elin Chau NP [address] [place] [address] PCP - General NURSE PRACTITIONER 03/19/24 documented as of this encounter
--- OUTSIDE RECORDS SUMMARY | 2025-02-17 14:48 | XMS_ITS | Encounter Summary ---
Author Organization [facility] Address [address] [place] [address] Care Team Providers Care Manager Hiv Name Role Phone Lakshmi Flor MD Primary Care Provider Unavailab Airam Weinstein DOPER OPERATOR Primary Care Provider Unav ailable Won Faustin MD Primary Care Provider [phone] Elin Chau DOPER OPERATOR Primary Care Provider [phone] Encounter Details Date Type Department Care Team (Late Contact Info) Description 11/15/2016 Abstract [facility] CONVERSION [address] [place] [address] , Generic ConversionMD Social History Tobacco Use [...] 03/24/2025 8:40 AM CDT Office Visit [facility] Mult[facility]ty Care - [facility] [address] [facility], [address] [place] [address] Gildardo Caho MD [address] [place] [address] 03/30/2025 2:15 PM CDT [facility] [address] [place] [address] Marquis Salmeron MD Three [facility]. [address] [place] [address] 05/18/2025 1:20 PM RIG HAND Office Visit [facility] Mult[facility]pecialty Care - [facility] [address] [facility], [address] [place] [address] Gildardo Chao MD [address] [place] [address] documented as of this encounter Visit Diagnoses Not on filedocumented in this encounter Additional Health Concerns Infection Onset Date Last Indicated Resolved Time COVID-19 Rule Out 06/07/2021 06/07/2021 06/07/2021 11:27 AM RIG HAND COVID-19 Confirmed 06/07/2021 06/07/2021 12:32 AM RIG HAND COVID-19 Rule Out 08/07/2023 08/07/2023 08/07/2023 9:37 AM RIG HAND Influenza - Seasonal 08/07/2023 08/07/2023 024 12:33 AM RIG HAND COVID-19 Rule Out 08/07/2023 08/07/2023 08/07/2023 12:46 PM RIG HAND Respiratory Rule Out 11/23/2024 11/23/2024 025 7:34 PM CDT COVID-19 Rule Out 11/23/2024 11/23/2024 11/23/2024 7:33 PM CDT documented as of this encounter Care Teams Manager Hiv Relationship Specialty Start Date End Date Lakshmi Flor MD PCP - General INTERNAL MEDICINE 09/27/17 03/18/20 Airam Daniel NP PCP - General NURSE PRACTITIONER 03/19/20 05/16/21 [place] [address] [place] [address] PCP - General FAMILY PRACTICE 05/17/21 03/18/24 Elin Chau NP [address] [place] [address] PCP - General NURSE PRACTITIONER 03/19/24 documented as of this encounter
--- OUTSIDE RECORDS SUMMARY | 2025-02-17 14:48 | XMS_ITS | Encounter Summary ---
Author Organization [facility] Address [address] [place] [address] Care Team Providers Care Magnetic Tape Composer Operator Name Role Phone Won Faustin MD Primary Care Provider [phone] Elin Chau NP Primary Care Provider [phone] Encounter Details Date Type Department Care Team (Late st Contact Info) Description 08/12/2021 Therapy Plan [facility] [address] [place], [place] [id number] Ivone Lowery MD [address] [place], [place] [address] Social History Tobacco Use Types Packs/Day Years [...] COVID-19? No / Unsure 08/12/2021 2:05 PM BUSINESS ANALYST CONSULTANT documented as of this encounter Functional Status [...] Description 03/24/2025 8:40 AM CDT Office Visit [facility] Medical Group Multispecialty Care - [facility] [address] [facility], [address] [place] [address] Gildardo Chao MD [address] [place] [address] 03/30/2025 2:15 PM CDT [facility] [address] [place] [address] Marquis Salmeron MD Three [facility]. [address] [place] [address] 05/18/2025 1:20 PM BUSINESS ANALYST CONSULTANT Office Visit [facility] Medical Group Multispecialty Care - [facility] [address] [facility], [address] [place] [address] Gildardo Caho MD [address] [place] [address] documented as of this encounter Visit Diagnoses Diagnosis Pelvic pain- Primary documented in this encounter Additional Health Concerns Infection Onset Date Last Indicated Resolved Time COVID-19 Rule Out 08/07/2023 08/07/2023 08/07/2023 9:37 AM BUSINESS ANALYST CONSULTANT Influenza - Seasonal 08/07/2023 08/07/2023 024 12:33 AM BUSINESS ANALYST CONSULTANT COVID-19 Rule Out 08/07/2023 08/07/2023 08/07/2023 12:46 PM BUSINESS ANALYST CONSULTANT Respiratory Rule Out 11/23/2024 11/23/2024 025 7:34 PM CDT COVID-19 Rule Out 11/23/2024 11/23/2024 11/23/2024 7:33 PM CDT documented as of this encounter Care Teams Magnetic Tape Composer Operator Relationship Specialty [place] [address] [place] [address] PCP - General FAMILY PRACTICE 05/17/21 03/18/24 Elin Chau NP [address] [place] [phone] PCP - General NURSE PRACTITIONER 03/19/24 documented as of this encounter
--- OUTSIDE RECORDS SUMMARY | 2025-02-17 14:48 | XMS_ITS | Encounter Summary ---
Author Organization [facility] Address [address] [place] [address] Care Team Providers Care Pie Crust Mixer Name Role Phone Lakshmi Flor MD Primary Care Provider Unavailab Airam Weinstein FOOTWEAR FACTORY WORKER Primary Care Provider Unav ailable Won Faustin MD Primary Care Provider [phone] lEin Chau FOOTWEAR FACTORY WORKER Primary Care Provider [phone] Encounter Details Date Type Department Care Team (Late Contact Info) Description 11/12/2014 Abstract [facility] CONVERSION [address] [place] [address] , Generic ConversionMD Social History Tobacco Use [...] Description 03/24/2025 8:40 AM CDT Office Visit [facility] Multispecialty Care - [facility] [address], [address] [place] [address] Gildardo Chao MD [address] [place] [address] 03/30/2025 2:15 PM CDT [facility] [address] [place] [address] Marquis Salmeron MD Three [facility]. [address] [place] [address] 05/18/2025 1:20 PM PANTRY GOODS WORKER Office Visit [facility] Multispecialty Care - [facility] [address], [address] [place] [phone] Gildardo Chao MD [address] [place] [address] documented as of this encounter Visit Diagnoses Not on filedocumented in this encounter Additional Health Concerns Infection Onset Date Last Indicated Resolved Time COVID-19 Rule Out 06/07/2021 06/07/2021 06/07/2021 11:27 AM PANTRY GOODS WORKER COVID-19 Confirmed 06/07/2021 06/07/2021 12:32 AM PANTRY GOODS WORKER COVID-19 Rule Out 08/07/2023 08/07/2023 08/07/2023 9:37 AM PANTRY GOODS WORKER Influenza - Seasonal 08/07/2023 08/07/2023 024 12:33 AM PANTRY GOODS WORKER COVID-19 Rule Out 08/07/2023 08/07/2023 08/07/2023 12:46 PM PANTRY GOODS WORKER Respiratory Rule Out 11/23/2024 11/23/2024 025 7:34 PM CDT COVID-19 Rule Out 11/23/2024 11/23/2024 11/23/2024 7:33 PM CDT documented as of this encounter Care Teams Pie Crust Mixer Relationship Specialty Start Date End Date Lakshmi Flor MD PCP - General INTERNAL MEDICINE 09/27/17 03/18/20 Airam Daniel NP PCP - General NURSE PRACTITIONER 03/19/20 05/16/21 [place] [address] [place] [address] PCP - General FAMILY PRACTICE 05/17/21 03/18/24 Elin Chau NP [address] [place] [address] PCP - General NURSE PRACTITIONER 03/19/24 documented as of this encounter
[2025-02-17 14:51] VITALS: BP 126/86; PULSE 71; RESP 18; TEMP 36.2; O2SAT 100
--- NOTE | 2025-02-17 14:52 | ED.URI ---
HPI - URI/Sore Throat General Chief Complaint: Upper Respiratory Infection Stated Complaint: Upper Respiratory Infection Time Seen by Provider: 02/17/25 15:23 Source: patient and RN notes reviewed Mode of arrival: ambulatory Limitations: no limitations History of Present Illness HPI Narrative: 29-year-old female presents with concern for 34 day history of sore throat, right ear pain, cough and nasal drainage. She has been taking ztle-lke-rehuazo medications without much relief. She reports history of having her uvula swell, she was supposed to have surgery for it but in that not having surgery. She reports that usually happens when she has these symptoms and she can feel like it is starting to swell. She denies any difficulty swallowing or breathing. MD elicited complaint: cough and sore throat Related Data Home Medications ?Medication ?Instructions ?Recorded ?Confirmed ?Last Taken ?Type clonazepam 0.5 mg tablet 0.5 mg DAILY 06/09/22 08/04/23 Unknown History levonorgestrel (Mirena) 1 device intrauterine ONCE 06/09/22 08/04/23 Unknown History Allergies Allergy/AdvReac Type Severity Reaction Status Date / Time No Known Allergies Allergy Verified 02/17/25 14:54 Review of Systems Review of Systems: CONSTITUTIONAL: Denies malaise, chills, sweats, or fever. EYES: Denies visual changes, redness, or discharge. ENT: Reports rhinorrhea, congestion, otalgia and sore throat. CARDIOVASCULAR: Denies chest pain, palpitations, or edema. RESPIRATORY: Reports cough. Denies dyspnea. GASTROINTESTINAL: Denies abdominal pain, nausea, vomiting, diarrhea SKIN: Denies rash or itching. MUSCULOSKELETAL: Denies myalgia. NEUROLOGIC: Denies headache. All systems reviewed & are unremarkable except as noted in HPI and below PMFSH Past Medical History Medical History Anxiety Pseudoseizure Surgical History Surgical History History of appendectomy Social History Social History Smoking status: Never smoker Comments At time of signature, agree with nursing past medical, surgical, social and family history. There is no relevant family history pertinent to the presenting complaint Exam Narrative: GENERAL: Well-appearing, well-nourished, and in no acute distress. HEAD: Normocephalic EYES: PERRLA, conjunctivae clear ENT: Nares clear. Mucous membranes moist. TM pearly de león with dull light reflex bilaterally; no tragal tenderness. Oropharynx not erythematous without lesions. No uvula edema noted. No angioedema noted. Tonsils not enlarged and without exudate, no drooling, no hoarseness, no trismus, uvula midline. NECK: Supple. No lymphadenopathy CHEST: Clear to auscultation, breath sounds equal. No wheezing, rhonchi, rales, or stridor. No respiratory distress, speaks in full sentences. HEART: Regular rate and rhythm. No murmur heard. SKIN: Warm, dry, no rash. NEURO: Alert and oriented x3. PSYCH: Normal mood and affect Course Course Emergency Course: Patient is aware of diagnosis, understands and agrees to treatment plan. Anticipatory guidance given. Patient agrees to follow-up as directed and is aware of reasons to seek care at the emergency department. Portions of this record may have been created with voice recognition software Level of Care: Express Care Visit Vital Signs Vital signs: Vital Signs Temperature 97.1 F L 02/17/25 14:51 Pulse Rate 71 02/17/25 14:51 Respiratory Rate 18 02/17/25 14:51 Blood Pressure 126/86 02/17/25 14:51 Pulse Oximetry 100 02/17/25 14:51 Temperature 97.1 F L 02/17/25 14:51 Pulse Rate 71 02/17/25 14:51 Respiratory Rate 18 02/17/25 14:51 Blood Pressure 126/86 02/17/25 14:51 Pulse Oximetry 100 02/17/25 14:51 Reviewed. MDM - URI/Sore Throat MDM Narrative Medical decision making narrative: Differential diagnosis considered: Sanchez virus, strep pharyngitis, allergic rhinitis, upper respiratory tract infection, sinusitis, rhinosinusitis, nasopharyngitis. viral pharyngitis, otitis media, otitis externa, pneumonia, bronchitis, viral cough syndrome, viral syndrome, and influenza. Exam findings show no acute concerns or changes; patient is non-toxic appearing and is in no distress. Patient is appropriate for outpatient treatment and follow-up. Lab Data Attestation: I reviewed the patient's lab results. Critical Care Time Critical Care Time Critical Care Time: No Discharge Plan Discharge Clinical Impression: Upper respiratory infection Patient Disposition: Home Condition: Stable Instructions: Upper Respiratory Infection (ED) Additional Instructions: Take medication as prescribed Viral illness may last between 7-21 days; antibiotics do not cure viral illness and are NOT recommended at this time. Recommend antihistamine such as Benadryl at night time and Zyrtec or Vicenta during the day Also, recommend symptomatic treatment includes: rest, fluids, and increase humidity of the air at home. Recommend Acetaminophen as directed on the bottle to reduce fever, pain, headache. Avoid smoking/second-hand smoke. Please schedule a follow-up visit with your personal physician for further evaluation and treatment within 3-5days. If your symptoms persist, change or worsen significantly before you can contact your personal physician then please, without delay, go to the emergency department for further evaluation. Patient Language: Indonesian Prescriptions: New methylprednisolone [Medrol (Ariel)] 4 mg tablets,dose pack See Rx Instructions .ROUTE .COMPLEX Qty: 21 0RF Rx Instructions: orally per package directions dextromethorphan-guaifenesin [Mucinex DM] 60-1,200 mg tablet extended release 12 hr 1 tablet PO Q12H Qty: 12 0RF No Action clonazepam 0.5 mg tablet 0.5 mg DAILY Mirena 20 mcg/24 hours (8 yrs) 52 mg Intrauterine Device 1 device INTRAUTERINE ONCE Rx Instructions: as a single dose Follow-up/Referrals: Kandi,Elin Pagan, SHEAR OPERATOR HELPER [Primary Care Provider] - Time of Disposition: 15:31
[2025-02-17 15:24] LABS: EDCOVIDSCREEN Negative (Negative); EDINFLUASCREEN Negative (Negative); EDINFLUBSCREEN Negative (Negative); EDSTREPNEGPOS1 Negative (Negative)
== END 2025-02-17 15:40 | disposition home or self-care (01) ==
PROVIDERS: Emergency Provider Nurse Practitioner
DX: J06.9 Acute upper respiratory infection, unspecified (principal); Z20.822 Contact with and (suspected) exposure to COVID-19; F41.9 Anxiety disorder, unspecified
CPT/HCPCS: 87081; 87426; 87804; 87880; 99213; G0463

== ENCOUNTER 2025-03-19 08:55 | Emergency (ER) | payer OTHER, SELFPAY ==
--- OUTSIDE RECORDS SUMMARY | 2024-12-17 03:40 | XMS_ITS ---
Author Organization [facility] Address [address] [place] [address] Care Team Providers Care Manager Field Investigations Name Role Phone Sally Matamoros Primary Care Provider Soha Coles Unavailable [phone] REASON FOR VISIT 3 Week F/U Medications [...] Encounters Encounter Location Date Provider Diagnosis [address] [address] 12/17/2024 Sally Matamoros Plan Of Treatment No Information Progress Notes * Elizabeth ILMDOB:1995 (29 yo F)Acc No.[id number]:12/17/2024 UNLOCKED PROGRESS NOTE Patient: Elizabeth PEDERSON Provider: Ana Matamoros, MSN, JAZZ SINGER, CHILD CENTER ASSISTANT-C :1995 A ge:29 Y S ex:Female Date:12/17/2024 Address:[facility] [place], [place] Subjective: * Chief Complaints: * 1 . [...] * Electronic signature of Remi Matamoros , [id number] on 03/19/2025 at 09:08 AM CDT Sign off status: Pending * Provider: Ana Matamoros, MSN, JAZZ SINGER, CHILD CENTER ASSISTANT-C Date: 12/17/2024 Generated for Jameson flynn/Eileen/Bradleysmitting on: 03/19/2025 09:08 AM CDT
--- NOTE | ~2025-03-19 | XR_ITS ---
EXAMINATION: XR ankle LT min 3V, XR foot LT min 3V DATE: 03/19/2025 09:27 INDICATION: Left foot and ankle pain post injury TECHNIQUE: 1. Anteroposterior, mortise, additional oblique and lateral view of the left ankle were obtained. 2. Dorsoplantar, two oblique and lateral views of the left foot were obtained. COMPARISON: None. FINDINGS: Alignment of the left foot and ankle is normal. No fracture or osteochondral lesion. Joint spaces are well maintained. No ankle joint effusion. The soft tissues are unremarkable. IMPRESSION: 1. Negative left foot and ankle radiographs. Reviewed, dictated and finalized at location A. IMPRESSION: 1. Negative left foot and ankle radiographs.
--- NOTE | 2025-03-19 08:57 | ED.EXTPRO ---
HPI - Extremity Problem General Chief complaint: Extremity Injury, Lower Stated complaint: numbness from left foot big toe up to knee Time Seen by Provider: 03/19/25 08:57 Source: patient Mode of arrival: ambulatory Limitations: no limitations History of Present Illness HPI Narrative: Elizabeth is a 29-year-old female patient presenting to the clinic with complaints of falling down some stairs and injuring her left foot, left 2nd toe, and left ankle. She reports she fell approximately down 8-9 stairs when caring port states from the grill to the table. Rates her pain a 7 out of 10 with bearing weight and a 4/10 when not moving. History of reconstruction surgery on her left ankle a few years ago. Is head complaining of sharp shooting pain with tingling to her foot. No obvious bruising or swelling noted. Has taken Tylenol for her symptoms. Related Data Home Medications ?Medication ?Instructions ?Recorded ?Confirmed ?Last Taken ?Type clonazepam 0.5 mg tablet 0.5 mg DAILY 06/09/22 08/04/23 Unknown History lisinopril 10 mg tablet mg 03/19/25 Unknown History topiramate 50 mg sprinkle capsule mg PO 03/19/25 Unknown History Allergies Allergy/AdvReac Type Severity Reaction Status Date / Time No Known Allergies Allergy Verified 03/19/25 09:07 Review of Systems Review of Systems: Pertinent positives per HPI. Patient denies any fever, chills, rash, headache, visual changes, dizziness, cough, runny nose, sore throat, shortness of breath, chest pain, palpitations, nausea, vomiting, diarrhea, constipation, abdominal pain, or any urinary issues. PMFSH Past Medical History Medical History Anxiety Pseudoseizure Surgical History Surgical History History of appendectomy Social History Social History Smoking status: Never smoker Comments At the time of my signature, I reviewed and agree with the nursing past medical, surgical, social, and family history. There is no relevant family history pertinent to the patient complaint. Exam Narrative: General: Well-developed, well nourished, in no apparent distress Head: Normocephalic, atraumatic. Cardio: Regular rate and rhythm, s1 and s2 normal, no murmur appreciated. Resp: Clear to auscultation bilaterally, no rhonchi, rales, wheezing or rubs. Musculoskeletal: No deformity, tender to palpation over the 2nd toe, arch of the foot, and over the posterior heel/ankle, grossly normal range of motion, pain with flexion and extension of the left 2nd toe, negative valgus and varus testing, no pain with plantar flexion and dorsal flexion, muscle strength strong and equal, peripheral pulse strong, no edema, no cyanosis, normal gait and station Course Course Emergency Course: Portions of this record may have been created with voice recognition software. Level of Care: Express Care Visit Vital Signs Vital signs: Vital Signs Temperature 36.6 C 03/19/25 09:04 Pulse Rate 72 03/19/25 09:04 Respiratory Rate 18 03/19/25 09:04 Blood Pressure 107/76 03/19/25 09:04 Pulse Oximetry 100 03/19/25 09:04 Oxygen Delivery Room Air 03/19/25 09:04 Temperature 36.6 C 03/19/25 09:04 Pulse Rate 72 03/19/25 09:04 Respiratory Rate 18 03/19/25 09:04 Blood Pressure 107/76 03/19/25 09:04 Pulse Oximetry 100 03/19/25 09:04 Oxygen Delivery Room Air 03/19/25 09:04 Vital signs reviewed MDM - Extremity (Nontraumatic) MDM Narrative Medical decision making narrative: At the time of visit patient is resting comfortably on the exam table. Patient appears to be nontoxic. Complaints of falling down some stairs and injuring her left foot, left 2nd toe, and left ankle. She reports she fell approximately down 8-9 stairs when caring port states from the grill to the table. Rates her pain a 7 out of 10 with bearing weight and a 4/10 when not moving. History of reconstruction surgery on her left ankle a few years ago. Is head complaining of sharp shooting pain with tingling to her foot. No obvious bruising or swelling noted. Has taken Tylenol for her symptoms. On exam patient has tenderness to palpation over the left 2nd toe, no pain with plantar flexion, dorsal flexion, valgus, or varus testing of the ankle, so posterior heel/ankle pain to palpation as well some pain to palpation or arch of the foot, X-ray of the left foot and ankle were ordered. Diagnosis: X-ray of the left ankle and foot were obtained. Of all x-rays were negative for any fracture or malalignment. Plan: I suspect patient has left foot sprain, left ankle sprain, and left 2nd toe sprain. Murtaza wrap and postop shoe was given. Sensation, circulation, and motion within normal limits after application of the Murtaza wrap. Supportive measures were discussed with the patient and they voiced understanding discharge instructions and agrees to treatment plan. Return precautions reviewed Differential Diagnosis Differential diagnosis: Likely other (Toe fracture, foot fracture, ankle fracture, contusion, soft tissue swelling, toe sprain, foot sprain, ankle sprain) Discharge Plan Discharge Clinical Impression: Left ankle sprain Qualifiers: Encounter type: initial encounter Involved ligament of ankle: unspecified ligament Qualified Code(s): S93.402A - Sprain of unspecified ligament of left ankle, initial encounter Sprain of foot, left Qualifiers: Encounter type: initial encounter Qualified Code(s): S93.602A - Unspecified sprain of left foot, initial encounter Sprain of second toe, left Qualifiers: Encounter type: initial encounter Qualified Code(s): S93.505A - Unspecified sprain of left lesser toe(s), initial encounter Patient Disposition: Home Condition: Stable Instructions: Antibiotic Form, Ankle Sprain (ED), Foot Sprain (ED) Additional Instructions: X-rays are negative of the left ankle and left foot. Rest, ice, elevate, and wear murtaza wrap/postop shoe as directed Tylenol/motrin for pain as per bottle directions as discussed. Gradually bear weight No running or sports until healed. Follow up with your PCP if symptoms persist more than 1 week. Patient Language: Mauritian Prescriptions: No Action lisinopril 10 mg tablet topiramate 50 mg capsule, sprinkle PO clonazepam 0.5 mg tablet 0.5 mg DAILY Follow-up/Referrals: Kandi,Elin Pagan, ONCOLOGY SOCIAL WORKER [Primary Care Provider, Unknown] Stand Alone Forms: Work/School Release IP Time of Disposition: 10:00 Quality [facility] Nursing Documentation ED NIH nursing documentation: reviewed/agree
[2025-03-19 09:04] VITALS: BP 107/76; PULSE 72; RESP 18; TEMP 36.6; O2SAT 100
--- OUTSIDE RECORDS SUMMARY | 2025-03-19 09:08 | XMS_ITS | Encounter Summary ---
Author Organization [facility] Address [facility] [place] [address] Care Team Providers Care Stockroom Keeper Name Role Phone Lakshmi Flor MD Primary Care Provider Unavailab Airam Weinstein LIQUOR GALLERY OPERATOR Primary Care Provider Unav ailable Won Faustin MD Primary Care Provider [phone] Elin Chau LIQUOR GALLERY OPERATOR Primary Care Provider [phone] Encounter Details Date Type Department Care Team (Late st Contact Info) Description 02/11/2020 Hospital Orders Only [facility] Day [facility] [address] [place] [address] Prema Jc DO [address] [place] [address] Social History Tobacco Use Types [...] Visit [facility] [address], [address] [place] [address] Gildardo Chao MD [address] [place] [address] 03/30/2025 2:15 PM CDT Office Visit [facility] [address] [place] [address] Marquis Salmeron MD Three [facility]. [address] [facility] [place] [address] 05/18/2025 1:20 PM GLASS BENDER Office Visit [facility] [address], [address] [place] [phone] Gildardo Chao MD [address] [place] [address] documented as of this encounter Visit Diagnoses Diagnosis (HHS/HCC)- Primary state, incidental documented in this encounter Additional Health Concerns Infection Onset Date Last Indicated Resolved Time COVID-19 Rule Out 06/07/2021 06/07/2021 06/07/2021 11:27 AM GLASS BENDER COVID-19 Confirmed 06/07/2021 06/07/2021 12:32 AM GLASS BENDER COVID-19 Rule Out 08/07/2023 08/07/2023 08/07/2023 9:37 AM GLASS BENDER Influenza - Seasonal 08/07/2023 08/07/2023 024 12:33 AM GLASS BENDER COVID-19 Rule Out 08/07/2023 08/07/2023 08/07/2023 12:46 PM GLASS BENDER Respiratory Rule Out 11/23/2024 11/23/2024 025 7:34 PM CDT COVID-19 Rule Out 11/23/2024 11/23/2024 11/23/2024 7:33 PM CDT documented as of this encounter Care Teams Stockroom Keeper Relationship Specialty Start Date End Date Lakshmi Flor MD PCP - General INTERNAL MEDICINE 09/27/17 03/18/20 Airam Daniel NP PCP - General NURSE PRACTITIONER 03/19/20 05/16/21 [place] [address] [place] [address] PCP - General FAMILY PRACTICE 05/17/21 03/18/24 Elin Chau NP [address] [place] [address] PCP - General NURSE PRACTITIONER 03/19/24 documented as of this encounter
--- OUTSIDE RECORDS SUMMARY | 2025-03-19 09:08 | XMS_ITS | Encounter Summary ---
Author Organization [facility] Address [facility] [place] [address] Care Team Providers Care Punch Press Setter Name Role Phone Airam Daniel NP Primary Care Provider Unav ailable Won Faustin MD Primary Care Provider [phone] Elin Chau NP Primary Care Provider [phone] Encounter Details Date Type Department Care Team (Late st Contact Info) Description 02/15/2021 InfoBionict Message Enc [facility] Medical [facility] Family & Internal Medicine [address] [address] Airam Daniel NP RE: Question [...] AM CDT Office Visit [facility] [address] [facility], [address] [place] [address] Gildardo Chao MD [address] [place] [address] 03/30/2025 2:15 PM CDT Office Visit [facility] [address] [place] [phone] Marquis Salmeron MD Three [facility]. [address] [place] [address] 05/18/2025 1:20 PM MANAGER PROCESS EXCELLENCE Office Visit [facility] [address] [facility], [address] [place] [address] Gildardo Chao MD [address] [place] [address] documented as of this encounter Visit Diagnoses Not on filedocumented in this encounter Additional Health Concerns Infection Onset Date Last Indicated Resolved Time COVID-19 Rule Out 06/07/2021 06/07/2021 06/07/2021 11:27 AM MANAGER PROCESS EXCELLENCE COVID-19 Confirmed 06/07/2021 06/07/2021 12:32 AM MANAGER PROCESS EXCELLENCE COVID-19 Rule Out 08/07/2023 08/07/2023 08/07/2023 9:37 AM MANAGER PROCESS EXCELLENCE Influenza - Seasonal 08/07/2023 08/07/2023 024 12:33 AM MANAGER PROCESS EXCELLENCE COVID-19 Rule Out 08/07/2023 08/07/2023 08/07/2023 12:46 PM MANAGER PROCESS EXCELLENCE Respiratory Rule Out 11/23/2024 11/23/2024 025 7:34 PM CDT COVID-19 Rule Out 11/23/2024 11/23/2024 11/23/2024 7:33 PM CDT documented as of this encounter Care Teams Punch Press Setter Relationship Specialty Start Date End Date Airam Daniel NP PCP - General NURSE PRACTITIONER 03/19/20 05/16/21 [place] [address] [place] [address] PCP - General FAMILY PRACTICE 05/17/21 03/18/24 Elin Chau NP [address] [place] [address] PCP - General NURSE PRACTITIONER 03/19/24 documented as of this encounter
--- OUTSIDE RECORDS SUMMARY | 2025-03-19 09:08 | XMS_ITS | Patient Health Record ---
Author Organization [facility] Address [address] [place] [address] Care Team Providers Care Vamp Seamer Name Role Phone Sally Matamoros Primary Care Provider Soha Coles Unavailable [phone] Yanira Pineda Unavailable [phone] Latisha Palacios Unavailable [phone] Allergies Allergen (clinical drug ingredient) Drug/Non Drug Allergy documented on EMR Reaction Allergy Type Onset Date Status cariprazine Vraylar nausea and vomiting Drug Allergy Active Reason For Referral Reason Therapy, counseling Diagnosis 1 Bipolar affective di sorder (F31.9) Diagnosis 2 Generalized anxiety disorder (F41.1) Referral Organization [facility] Referring Provider First Name Sally Referring Provider Last Name Saturnino Referring Provider Speciality Psychiatry Referred Provider Specialty Behavioral [facility] General Notes Sally Matamoros 11:06:43 AM > Client with high levels of depression and anxiety. Reports passive SI, denies any plan or intent, but reports wanting to start therapy and have further support as soon as she is able. Please refer. Thank you. Clinical Notes Ahsan Pineda 08/14/2024 02:04:11 PM > Seal Skinner spoke with client who states she has an appointment scheduled next sunday. Seal Skinner will fidelina referral as addressed. 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 Stress is when someone feels tense, nervous, anxious, or can\t sleep at night because their mind is troubled Somewhat In the past year have you sp ent more than 2 nights in a row in a senior care, [place] health care facility, fpc center, or juvenile correctional facility? No Do [...] Status Risk Notes Problem Morbid obesity (disorder) (006696183) Morbid (severe) obesity due to excess calories (E66.01) Active confirmed Problem Generalized anxiety disorder (85713842) Generalized anxiety disorder (F41.1) Active confirmed Problem Tobacco dependence (96507328) Tobacco dependence (F17.200) Active confirmed Problem Anxiety (91716558) Anxiety (F41.9) Active confirmed Problem Bipolar affective disorder (25573119) Bipolar affective disorder (F31.9) Active confirmed Problem Depressive disorder (01951327) Depressive disorder (F32.9) Active confirmed Problem Posttraumatic stress disorder (72797631) Chronic post-traumatic stress disorder (PTSD) (F43.12) Active confirmed Problem Obesity (010968216) Obesity (BMI 30-39.9) (E66.9) Active confirmed Problem Sleep disturbance (78220378) Sleep disturbance, unspecified (G47.9) Active confirmed Problem Body mass index 40+ - severely obese (224312293) Body mass index (BMI) of 40.0-44.9 in [...] 10/07/2024 Encounters Encounter Location Date Provider Diagnosis [address] [address] 03/26/2024 Sally Matamoros Generalized anxiety disorder F41.1 ; Bipolar affective disorder F31.9 ; Chronic post-traumatic stress disorder (PTSD) F43.12 ; Sleep disturbance, unspecified G47.9 ; Cannabis use disorder F12.90 and Medication monitoring encounter Z51.[address] [address] 05/14/2024 Sally Matamoros Generalized anxiety disorder F41.1 ; Bipolar affective disorder F31.9 ; Chronic post-traumatic stress disorder (PTSD) F43.12 ; Sleep disturbance, unspecified G47.9 ; Cannabis use disorder F12.90 and Medication monitoring encounter Z51.[address] [address] 06/02/2024 Sally Matamoros Bipolar affective disorder F31.9 ; Generalized anxiety disorder F41.1 ; Chronic post-traumatic stress disorder (PTSD) F43.12 ; Sleep disturbance, unspecified G47.9 ; Cannabis use disorder F12.90 and Medication monitoring encounter Z51.[address] [address] 08/13/2024 Sally Matamoros Bipolar affective disorder F31.9 ; Generalized anxiety disorder F41.1 ; Chronic post-traumatic stress disorder (PTSD) F43.12 ; Sleep disturbance, unspecified G47.9 ; Cannabis use disorder F12.90 and Medication monitoring encounter Z51.[address] [address] 09/03/2024 Sally Matamoros Bipolar affective disorder F31.9 ; Generalized anxiety disorder F41.1 ; Chronic post-traumatic stress disorder (PTSD) F43.12 ; Sleep disturbance, unspecified G47.9 ; Cannabis use disorder F12.90 and Medication monitoring encounter Z51.[address] [address] 10/01/2024 Sally Matamoros Bipolar affective disorder F31.9 ; Generalized anxiety disorder F41.1 ; Chronic post-traumatic stress disorder (PTSD) F43.12 ; Sleep disturbance, unspecified G47.9 ; Cannabis use disorder F12.90 and Medication monitoring encounter Z51.81 [address] [place] [address] 10/07/2024 Sally Matamoros Bipolar affective disorder F31.9 ; Generalized anxiety disorder F41.1 ; Chronic post-traumatic stress disorder (PTSD) F43.12 ; Sleep disturbance, unspecified G47.9 ; Cannabis use disorder F12.90 and Medication monitoring encounter Z51.[address] [address] 10/15/2024 Latisha Palacios Anxiety F41.9 [address] [place] [address] 10/21/2024 Sally Matamoros Bipolar affective disorder F31.9 ; Generalized anxiety disorder F41.1 ; Chronic post-traumatic stress disorder (PTSD) F43.12 ; Sleep disturbance, unspecified G47.9 ; Cannabis use disorder F12.90 and Medication monitoring encounter Z51.81 [facility] [address] [place] [address] 11/04/2024 Sally Matamoros Bipolar affective disorder F31.9 ; Generalized anxiety disorder F41.1 ; Chronic post-traumatic stress disorder (PTSD) F43.12 ; Sleep disturbance, unspecified G47.9 ; Cannabis use disorder F12.90 and Medication monitoring encounter Z51.[address] [place] [address] 12/25/2024 Sally Matamoros Bipolar affective disorder F31.9 ; Generalized anxiety disorder F41.1 ; Chronic post-traumatic stress disorder (PTSD) F43.12 ; Sleep disturbance, unspecified G47.9 ; Cannabis use disorder F12.90 and Medication monitoring encounter Z51.[address] [place] [address] 01/15/2025 Sally Matamoros Bipolar affective disorder F31.9 ; Generalized anxiety disorder F41.1 ; Chronic post-traumatic stress disorder (PTSD) F43.12 ; Sleep disturbance, unspecified G47.9 ; Cannabis use disorder F12.90 and Medication monitoring encounter Z51.[address] [place] [address] 03/26/2024 Sally Manzanonnan [address] [place] [address] 05/14/2024 Sally Matamoros [facility] [address] [place] [address] 05/19/2024 Sally Matamoros Bipolar affective disorder F31.9 [facility] [address] [place] [address] 08/13/2024 Sally Matamoros [facility] [address] [place] [address] 08/14/2024 Sally Matamoros [facility] [address] [place] [address] 08/14/2024 Yanira Pineda [address] LOZOYA [facility] [place] [address] 08/26/2024 Sally Matamoros Bipolar affective disorder F31.[address] [place] [address] 10/01/2024 Sally Matamoros [address] [place] [address] 10/01/2024 Sally Matamoros [address] [place] [address] 10/01/2024 Sally Matamoros [address] [place] [address] 10/10/2024 Sally Matamoros [address] [place] [address] 10/13/2024 Sallyadi Matamoros [address] [place] [address] 10/15/2024 Sally Matamoros [address] [place] [address] 10/16/2024 Sally Matamoros [address] [place] [address] 10/30/2024 Sallyadi Matamoors [address] [place] [address] 12/18/2024 Sally Matamoros Generalized anxiety disorder F41.[address] [address] 12/25/2024 Sally Matamoros [address] [place] [address] 10/17/2024 Sally Matamoros [address] [place] [address] 11/11/2024 Sally Matamoros Bipolar affective disorder F31.[address] [place] [address] 12/07/2024 Sally Matamoros [address] [place] [address] 12/07/2024 Sally Garciaan Generalized anxiety disorder F41.1 Assessments Encounter Date Diagnosis (ICD Code) Assessment Notes Treatment Notes Treatment Clinical Notes Section Notes 03/26/2024 Generalized anxiety disorder (ICD-10 - F41.1) Past trials: hydroxyzine, buspar, fluoxetin, celexa, venlafaxine, propranolol Clonazepam on for rare, PRN use only. Discussed controlled sub with patient. PDMP checked without concerns 10/21/2024 Bipolar affective disorder (ICD-10 - F31.9) [...] Client reports SI on lamotrigine. Discussed [facility] 10/07/2024 Bipolar affective disorder (ICD-10 - F31.9) Past: Seroquel Past trials: Seroquel- headache at higher doses. Abilify- just stopped working. Retried Abilify and felt shaky. Risperdal- SE not tolerable. Topamax- headache, slurrred words per client- hx of doing well on Topamax. Client reports SI on lamotrigine. Discussed [facility] 10/01/2024 Bipolar affective disorder (ICD-10 - F31.9) Will request hospital records, decreasing dose and monitoring, get lab Sunday morning to keep close eye on levels. Labs to [facility] Past: Seroquel Past trials: Seroquel- headache at higher doses. Abilify- just stopped working. Retried Abilify and felt shaky. Risperdal- SE not tolerable. Topamax- headache, slurrred words per client- hx of doing well on Topamax. Client reports SI on lamotrigine. Discussed [employer] 09/03/2024 Bipolar affective disorder (ICD-10 - F31.9) Recent labwork at 0.3 level- Increase lithium. Take as prescribed. Discussed uses for bipolar depression with SI. Reviewed risks associated like toxicity and water intake, cardiovascular changes. Educated on monitoring weight, kidney function and therapeutic blood trough levels. [facility]: Have lithium level drawn after taking [...] Topamax. Client reports SI on lamotrigine. Discussed [employer] 08/26/2024 Bipolar affective disorder (ICD-10 - F31.9) 08/13/2024 Bipolar affective disorder (ICD-10 - F31.9) Start lithium. Take as prescribed. Discussed uses for bipolar depression with SI. Reviewed risks associated like toxicity and water intake, cardiovascular changes. Educated on monitoring weight, kidney function and therapeutic blood trough levels. [facility]: Have lithium level drawn after taking [...] Topamax. Client reports SI on lamotrigine. Discussed [employer] 06/02/2024 Bipolar affective disorder (ICD-10 - F31.9) [place] agreement to continue current regimen Past: Seroquel Past trials: Seroquel- headache at higher doses. Abilify- just stopped working. Retried Abilify and felt shaky. Risperdal- SE not tolerable. Topamax- headache, slurrred words per client- hx of doing well on Topamax. Client reports SI on lamotrigine. Discussed [facility] 05/19/2024 Bipolar affective disorder (ICD-10 - F31.9) 05/14/2024 Generalized anxiety disorder (ICD-10 - F41.1) Past trials: hydroxyzine, buspar, fluoxetin, celexa, venlafaxine, propranolol Clonazepam on for rare, PRN use only. Discussed controlled sub with patient. PDMP checked without concerns 01/15/2025 Bipolar affective disorder (ICD-10 - F31.9) [...] irritability with Depakote. [facility] has been completed. 12/25/2024 Bipolar affective disorder (ICD-10 - F31.9) [...] irritability with Depakote. [facility] has been completed. 12/18/2024 Generalized anxiety disorder (ICD-10 - F41.1) 12/07/2024 Generalized anxiety disorder (ICD-10 - F41.1) 11/11/2024 Bipolar affective disorder (ICD-10 - F31.9) 11/04/2024 Bipolar affective disorder (ICD-10 - F31.9) Increase Depakote/Valproic Acid. Take as prescribed. Purpose - promote mood stability. Reviewed side effects, including sedation, dose-dependent tremor, dizziness, ataxia, asthenia, headache abdominal pain, GI distress, and alopecia. Rarely can cause liver or pancreas dysfunction/failure. Labs in 1 week. [facility] we[facility], stop today. Past: Seroquel Past trials: Seroquel- headache at higher doses. Abilify- just stopped working. Retried Abilify and felt shaky. Risperdal- SE not tolerable. Topamax- headache, slurrred words per client- hx of doing well on Topamax. Client reports SI on lamotrigine. Discussed [facility] 10/15/2024 Anxiety (ICD-10 - F41.9) 12/25/2024 Generalized anxiety disorder (ICD-10 - F41.1) Past trials: hydroxyzine, buspar, fluoxetin, celexa, venlafaxine, propranolol Discussed controlled sub with patient. DO NOT DRINK ETOH WITH THESE MEDICATIONS- client v/u and states she will not be drinking. Low efficacy with Valium and Ativan; continue with Klonopin at this time. PDMP checked without concerns 11/04/2024 Generalized anxiety disorder (ICD-10 - F41.1) Past trials: hydroxyzine, buspar, fluoxetin, celexa, venlafaxine, propranolol Discussed controlled sub with patient. DO NOT DRINK ETOH WITH THESE MEDICATIONS- client v/u and states she will not be drinking. PDMP checked without concerns 01/15/2025 Generalized anxiety disorder (ICD-10 - F41.1) Past trials: hydroxyzine, buspar, fluoxetin, celexa, venlafaxine, propranolol Discussed controlled sub with patient. DO NOT DRINK ETOH WITH THESE MEDICATIONS- client v/u and states she will not be drinking. Low efficacy with Valium and Ativan; continue with Klonopin at this time. PDMP checked without concerns 05/14/2024 Bipolar affective [...] reports SI on lamotrigine. Ordered [facility] testing. 09/03/2024 Generalized anxiety disorder (ICD-10 [...] ETOH use Sat. PDMP checked without concerns 03/26/2024 Bipolar affective [...] reports SI on lamotrigine. Ordering [facility] testing. 10/21/2024 Generalized anxiety disorder (ICD-10 - F41.1) Past trials: hydroxyzine, buspar, fluoxetin, celexa, venlafaxine, propranolol Discussed controlled sub with patient. DO NOT DRINK ETOH WITH THESE MEDICATIONS- client v/u and states she will not be drinking. PDMP checked without concerns 03/26/2024 Chronic post-traumatic stress disorder (PTSD) (ICD-10 [...] (PTSD) (ICD-10 - F43.12) encouraged therapy/counseling 11/04/2024 Sleep disturbance, unspecified (ICD-10 - G47.9) Discouraged caffeine intake. 12/25/2024 Sleep disturbance, unspecified (ICD-10 - G47.9) Discouraged caffeine intake. 01/15/2025 Sleep disturbance, unspecified (ICD-10 - G47.9) Discouraged caffeine intake. Trazodone with night-terrors 05/14/2024 Sleep disturbance, unspecified (ICD-10 - G47.9) [...] (ICD-10 - G47.9) Discouraged caffeine intake. 03/26/2024 Cannabis use disorder (ICD-10 - F12.90) [...] cause adverse reactions. Patient voiced understanding. 11/04/2024 Medication monitoring encounter (ICD-10 - Z51.81) 12/25/2024 Medication monitoring encounter (ICD-10 - Z51.81) 01/15/2025 Medication monitoring encounter (ICD-10 - Z51.81) 06/02/2024 Medication monitoring encounter (ICD-10 - Z51.81) 05/14/2024 Medication monitoring encounter (ICD-10 - Z51.81) 08/13/2024 Medication monitoring encounter (ICD-10 - Z51.81) 09/03/2024 Medication monitoring encounter (ICD-10 - Z51.81) 10/01/2024 Medication monitoring encounter (ICD-10 - Z51.81) 10/21/2024 Medication monitoring encounter (ICD-10 - Z51.81) 10/07/2024 Medication monitoring encounter (ICD-10 - Z51.81) 03/26/2024 [...] May also contact the 24-hour crisis hotline ([facility]), refer to the closest emergency room [...] May also contact the 24-hour crisis hotline ([facility]), refer to the closest emergency room [...] May also contact the 24-hour crisis hotline ([facility]), refer to the closest emergency room [...] May also contact the 24-hour crisis hotline ([facility]), refer to the closest emergency room [...] May also contact the 24-hour crisis hotline ([facility]), refer to the closest emergency room [...] May also contact the 24-hour crisis hotline ([facility]), refer to the closest emergency room [...] treatment plan and follow up. 10/15/2024 Other Seal Skinner met with client via telehealth to discuss referral. The technical writer encouraged and engaged in critical thinking [...] May also contact the 24-hour crisis hotline ([facility]), refer to the closest emergency room [...] May also contact the 24-hour crisis hotline ([facility]), refer to the closest emergency room [...] May also contact the 24-hour crisis hotline ([facility]), refer to the closest emergency room [...] May also contact the 24-hour crisis hotline (R), refer to the closest emergency room or [...] Insured Coverage Start Date Coverage End Date [employer] [facility] [address] [place] [phone] [id number] Elizabeth Lim Self - patient is the insured 2 [facility] Att Claims Department [address] [place] [address] [phone] Hooks Self - patient is the insured 6 [facility] Claims Department [address] [place] [address] [phone] Hooks Self - patient is the insured 2 [facility] [address] [place] [phone] [id number] Hooks Self - patient is the insured 2 [employer] [facility] [address] [place] [phone] [id number] Elizabeth Lim Self - patient is the insured 5 Medical (General) History Medical History History ICD Code Anxiety Bipolar disorder Major depressive disorder, single episod e, unspecified F32.9 Seizures R56.9 Surgical History Surgery Date(Month/Year) 01/2017 appendectomy Hospitalization History Reason Date(Month/Year) Seizure hospitalization at [facility] 10/05/24
--- OUTSIDE RECORDS SUMMARY | 2025-03-19 09:08 | XMS_ITS | Encounter Summary ---
Author Organization [facility] Address [facility] [place] [address] Care Team Providers Care Marine Equipment Sales Engineer Name Role Phone Airam Daniel NP Primary Care Provider Unav ailable Won Faustin MD Primary Care Provider [phone] Elin Chau NP Primary Care Provider [phone] Encounter Details Date Type Department Care Team (Late st Contact Info) Description 01/21/2021 ClassLinkt Message Enc [facility] Family & Internal Medicine [address] [address] Airam Daniel NP RE: Question [...] Description 03/24/2025 8:40 AM CDT Office Visit [facility] Multispecialty Care - [address], [address] [place] [address] Gildardo Chao MD [address] [place] [address] 03/30/2025 2:15 PM CDT [facility] [address] [facility] [place] [address] Marquis Salmeron MD Three [facility]. [address] [place] [address] 05/18/2025 1:20 PM BURR BENCH OPERATOR Office Visit [facility] Multispecialty Care - [facility] [address] [facility], [address] [place] [address] Gildardo Chao MD [address] [place] [address] documented as of this encounter Visit Diagnoses Not on filedocumented in this encounter Additional Health Concerns Infection Onset Date Last Indicated Resolved Time COVID-19 Rule Out 06/07/2021 06/07/2021 06/07/2021 11:27 AM BURR BENCH OPERATOR COVID-19 Confirmed 06/07/2021 06/07/2021 12:32 AM BURR BENCH OPERATOR COVID-19 Rule Out 08/07/2023 08/07/2023 08/07/2023 9:37 AM BURR BENCH OPERATOR Influenza - Seasonal 08/07/2023 08/07/2023 024 12:33 AM BURR BENCH OPERATOR COVID-19 Rule Out 08/07/2023 08/07/2023 08/07/2023 12:46 PM BURR BENCH OPERATOR Respiratory Rule Out 11/23/2024 11/23/2024 025 7:34 PM CDT COVID-19 Rule Out 11/23/2024 11/23/2024 11/23/2024 7:33 PM CDT documented as of this encounter Care Teams Marine Equipment Sales Engineer Relationship Specialty Start Date End Date Airam Daniel NP PCP - General NURSE PRACTITIONER 03/19/20 05/16/21 [place] [address] [place] [address] PCP - General FAMILY PRACTICE 05/17/21 03/18/24 Elin Chau NP [address] [place] [id number] PCP - General NURSE PRACTITIONER 03/19/24 documented as of this encounter
--- OUTSIDE RECORDS SUMMARY | 2025-03-19 09:08 | XMS_ITS | Encounter Summary ---
Author Organization [facility] Address [facility] [place] [address] Care Team Providers Care Head Of Biology Name Role Phone Airam Daniel NP Primary Care Provider Unav ailable Won Faustin MD Primary Care Provider [phone] Elin Chau NP Primary Care Provider [phone] Encounter Details Date Type Department Care Team (Late st Contact Info) Description 11/24/2020 Osmopuret Message Enc [facility] Family & Internal Medicine [address] [address] Airam Daniel NP RE: Medication [...] Description 03/24/2025 8:40 AM CDT Office Visit [facility] Multispecialty Care - [facility] [address] [facility], [address] [place] [address] Gildardo Chao MD [address] [place] [address] 03/30/2025 2:15 PM CDT [facility] [address] [place] [address] Marquis Salmeron MD Three [facility]. [address] [place] [address] 05/18/2025 1:20 PM AGENCY CASHIER Office Visit [facility] Multispecialty Care - [facility] [address] [facility], [address] [place] [address] Gildardo Chao MD [address] [place] [address] documented as of this encounter Visit Diagnoses Not on filedocumented in this encounter Additional Health Concerns Infection Onset Date Last Indicated Resolved Time COVID-19 Rule Out 06/07/2021 06/07/2021 06/07/2021 11:27 AM AGENCY CASHIER COVID-19 Confirmed 06/07/2021 06/07/2021 12:32 AM AGENCY CASHIER COVID-19 Rule Out 08/07/2023 08/07/2023 08/07/2023 9:37 AM AGENCY CASHIER Influenza - Seasonal 08/07/2023 08/07/2023 024 12:33 AM AGENCY CASHIER COVID-19 Rule Out 08/07/2023 08/07/2023 08/07/2023 12:46 PM AGENCY CASHIER Respiratory Rule Out 11/23/2024 11/23/2024 025 7:34 PM CDT COVID-19 Rule Out 11/23/2024 11/23/2024 11/23/2024 7:33 PM CDT documented as of this encounter Care Teams Head Of Biology Relationship Specialty Start Date End Date Airam Daniel NP PCP - General NURSE PRACTITIONER 03/19/20 05/16/21 [place] [address] [place] [address] PCP - General FAMILY PRACTICE 05/17/21 03/18/24 Elin Chau NP [address] [place] [address] PCP - General NURSE PRACTITIONER 03/19/24 documented as of this encounter
--- OUTSIDE RECORDS SUMMARY | 2025-03-19 09:08 | XMS_ITS | Encounter Summary ---
Author Organization [facility] Address [address] [place] [address] Care Team Providers Care Tamping Machine Operator Road Forms Name Role Phone Won Faustin MD Primary Care Provider [phone] Elin Chau NP Primary Care Provider [phone] Encounter Details Date Type Department Care Team (Late st Contact Info) Description 08/12/2021 Therapy Plan [facility] One Day Services [address] [place], [place] [phone] Ivone Lowery MD [address] [place], [place] [address] Social History Tobacco Use Types Packs/Day Years [...] COVID-19? No / Unsure 08/12/2021 2:05 PM OBSTETRICS GYN documented as of this encounter Functional Status [...] Description 03/24/2025 8:40 AM CDT Office Visit [facility] Medical [facility] Multispecialty Care - [facility] [address] [facility], [address] [place] [phone] Gildardo Chao MD 3 [place] [address] 03/30/2025 2:15 PM CDT [facility] [address] [place] [address] Marquis Salmeron MD Three [facility]. [address] [place] [address] 05/18/2025 1:20 PM OBSTETRICS GYN Office Visit [facility] Medical Group Multispecialty Care - [facility] [address] [facility], [address] [place] [address] Gildardo Chao MD 3 [place] [address] documented as of this encounter Visit Diagnoses Diagnosis Pelvic pain- Primary documented in this encounter Additional Health Concerns Infection Onset Date Last Indicated Resolved Time COVID-19 Rule Out 08/07/2023 08/07/2023 08/07/2023 9:37 AM OBSTETRICS GYN Influenza - Seasonal 08/07/2023 08/07/2023 024 12:33 AM OBSTETRICS GYN COVID-19 Rule Out 08/07/2023 08/07/2023 08/07/2023 12:46 PM OBSTETRICS GYN Respiratory Rule Out 11/23/2024 11/23/2024 025 7:34 PM CDT COVID-19 Rule Out 11/23/2024 11/23/2024 11/23/2024 7:33 PM CDT documented as of this encounter Care Teams Tamping Machine Operator Road Forms Relationship Specialty [place] [address] [place] [address] PCP - General FAMILY PRACTICE 05/17/21 03/18/24 Elin Chau NP [address] [place] [phone] PCP - General NURSE PRACTITIONER 03/19/24 documented as of this encounter
--- OUTSIDE RECORDS SUMMARY | 2025-03-19 09:08 | XMS_ITS | Encounter Summary ---
Author Organization [facility] Address [facility] [place] [address] Care Team Providers Care Educational Psychologist Name Role Phone Airam Daniel NP Primary Care Provider Unav ailable Won Faustin MD Primary Care Provider [phone] Elin Chau NP Primary Care Provider [phone] Encounter Details Date Type Department Care Team (Late st Contact Info) Description 11/28/2020 Sea[employer] Message Enc [facility] Medical Group Family & Internal Medicine [address] [address] Airam Daniel NP RE: Question [...] Office Visit [facility] [address] [facility], [address] [place] [address] Gildardo Chao MD 3 [place] [address] 03/30/2025 2:15 PM CDT Office Visit [facility] [address] [place] [address] Marquis Salmeron MD Three [facility]. [address] [place] [address] 05/18/2025 1:20 PM LOGGING TRACTOR OPERATOR SWAMP Office Visit [facility] [address] [facility], [address] [place] [address] Gildardo Chao MD 3 [place] [address] documented as of this encounter Visit Diagnoses Not on filedocumented in this encounter Additional Health Concerns Infection Onset Date Last Indicated Resolved Time COVID-19 Rule Out 06/07/2021 06/07/2021 06/07/2021 11:27 AM LOGGING TRACTOR OPERATOR SWAMP COVID-19 Confirmed 06/07/2021 06/07/2021 12:32 AM LOGGING TRACTOR OPERATOR SWAMP COVID-19 Rule Out 08/07/2023 08/07/2023 08/07/2023 9:37 AM LOGGING TRACTOR OPERATOR SWAMP Influenza - Seasonal 08/07/2023 08/07/[address] 024 12:33 AM LOGGING TRACTOR OPERATOR SWAMP COVID-19 Rule Out 08/07/2023 08/07/2023 08/07/2023 12:46 PM LOGGING TRACTOR OPERATOR SWAMP Respiratory Rule Out 11/23/2024 11/23/2024 025 7:34 PM CDT COVID-19 Rule Out 11/23/2024 11/23/2024 11/23/2024 7:33 PM CDT documented as of this encounter Care Teams Educational Psychologist Relationship Specialty Start Date End Date Airam Daniel NP PCP - General NURSE PRACTITIONER 03/19/20 05/16/21 [place] [address] [place] [address] PCP - General FAMILY PRACTICE 05/17/21 03/18/24 Elin Chau NP [address] [place] [address] PCP - General NURSE PRACTITIONER 03/19/24 documented as of this encounter
--- OUTSIDE RECORDS SUMMARY | 2025-03-19 09:08 | XMS_ITS | Clinical Summary ---
Author Organization [facility] Address [address] [place] [address] Care Team Providers Care Scientific Publications Editor Name Role Phone Kandi Elin FRANKLIN Primary Care Provider [phone] Allergies Active Allergy Reactions Criticality Noted Date [...] Noted Date Diagnosed Date Pelvic pain 08/12/2021 ([facility]/HCC) 04/08/2020 Acute left ankle pain 03/10/2019 Acute cystitis without hematuria 02/27/2019 Assessment & Plan (02/27/2019 9:27 AM CDT): Positive dip stick. Will treat with nitrofurantoin. Will call if not sensitive and need to change. Otherwise she will call if no improvement Chronic tension-type headache, not intractable 1 07/27/2017 Assessment & Plan (05/27/2018 12:57 PM PIPE LAYER): Suspect some medication over use contributing. She is already on topamax Stop taking tylenol and drinking caffeine and may have worsening fo headache for next 48 hrs but then should improve Osteochondral defect of ankle 10/03/2017 Essential hypertension 03/12/2017 Assessment & Plan (05/27/2018 12:58 PM PIPE LAYER): Currently controlled off HCTZ. Check BP at home and call if > 140/100 consistently Depression 07/05/2016 Overview (05/11/2018): Description: Soha Marshall is her psychiatrist. Assessment & Plan (05/27/2018 12:58 PM PIPE LAYER): Stable. Managed by psychiatrist Psychogenic nonepileptic seizure 07/05/2016 Syncope 01/23/2013 Anxiety Encounters Date Type Department Care Team Description 01/07/2025 7:34 PM CDT - 01/07/2025 9:31 PM CDT Emergency [facility] Emergency Room [address] [place] [address] Ced Douglas MD Skin Problem Discharge Disposition: Home or Self Care (Routine Discharge) 01/07/2025 Travel 12/22/2024 7:20 AM CDT Office Visit [facility] Medical Group Multispecialty Care - [facility] [address] [facility], [address] [place] [phone] Gildardo Chao MD Follow Up (Pseudotumor cerebri); Headache (Migraine days per week: 2-3) 12/22/2024 Travel from Last 3 Months Immunizations Immunization [...] Description 03/24/2025 8:40 AM CDT [facility] [address] [facility], [address] [place] [address] Gildardo Chao MD 3 [place] [address] 03/30/2025 2:15 PM CDT [facility] [address] [place] [phone] Marquis Salmeron MD Three [facility]. [address] [place] [address] 05/18/2025 1:20 PM PIPE LAYER [facility] [address] [facility], [address] [place] [address] Gildardo Chao MD 3 [place] [address] Health Maintenance Due Date Last Done Comments Annual Physical 2000 Hepatitis C 11/10/2015 Cervical Cancer Screening Pap Smear (Age 21 to 29) Every 3 Years 09/04/2022 09/04/2019 Cervical Cancer Screening 09/04/2022 HPV Vaccines (1 - 3-dose SCDM series) 2024 COVID-19 Vaccine ( season) 2025 DTaP, Tdap and Td Vaccines (10 - Td or Tdap) 02/10/2030 02/11/2020, 11/16/2016, 02/02/2013, Additional history exists Hepatitis B Vaccines Completed 08/18/1998, 1997, 1997 Pneumococcal Vaccine: Pediatrics (0 to 5 Years) and At-Risk Patients (6 to 49 Years) Aged Out 03/04/2001 No longer eligible based on patient's age to complete this topic Meningococcal Vaccine Completed 07/28/2014, 009 PHQ-2 (Physician [place]) Completed 11/03/2024 Meningococcal B Vaccine Aged Out No l onger eligible based on patient's age to complete this topic RSV Immunizations Under 20 Months Aged Out No longer eligible based on patient's age to complete this topic Medical Devices Implanted Type Area Analog Circuit Designer Device Identifier Shelf Expiration Date Model / Serial / Lot Implant System Internalbrace Ligament [employer] - [id number] Implanted:Qty: 1 on 02/28/2018 by Jermain Simeon MD at [facility] Left: Ankle [employer] 10/14/2019 [id number] / / [id number] Biocomposite Suture [place], [place],Short Dx Implanted:Qty: 2 on 02/28/2018 by Jermain Simeon MD at [facility] Left: Ankle [employer] 06/14/2018 [id number] / / [id number] Procedures Procedure Name Priority Date/Time Associated Diagnosis Comments CK (CPK) STAT 01/07/2025 7:54 PM CDT COMPREHENSIVE METABOLIC PANEL STAT 01/07/2025 7:54 PM CDT CBC W/DIFF AUTOMATED STAT 01/07/2025 7:54 PM CDT OUTSIDE CYTOPATH CERV/VAG INTERPRET (PAP) (SCAN ORDER) 09/04/2019 from Last 3 Months or Most Recently Relevant to Health Maintenance Results * (ABNORMAL) COMPREHENSIVE METABOLIC PANEL (01/07/2025 7:54 PM CDT) GLUCOSE 91 70 - 99 MG/DL 01/07/2025 8:15 PM CDT [facility] BUN 5(L) 7 - 18 MG/DL 01/07/2025 8:15 PM CDT [facility] CREATININE S/P/B 0.72 0.55 - 1.02 MG/DL 01/07/2025 8:15 PM CDT [facility] SODIUM S/P/B 135(L) 136 - 145 MMOL/L 01/07/2025 8:15 PM CDT [facility] POTASSIUM S/P/B 3.7 3.5 - 5.1 MMOL/L 01/07/2025 8:15 PM CDT [facility] CHLORIDE S/P/B 102 100 - 108 MMOL/L 01/07/2025 8:15 PM CDT [facility] CO2 23.1 21 - 32 MMOL/L 01/07/2025 8:15 PM CDT [facility] CALCIUM S/P/B 8.8 8.5 - 10.1 MG/DL 01/07/2025 8:15 PM CDT [facility] BILIRUBIN TOTAL S/P/B 1.3(H) 0.2 - 1.2 MG/DL 01/07/2025 8:15 PM T [facility] TOTAL PROTEIN S/P/B 7.0 6.4 - 8.2 G/DL 01/07/2025 8:15 PM T [facility] ALBUMIN S/P/B 3.6 3.4 - 5.0 G/DL 01/07/2025 8:15 PM T [facility] AST 31 15 - 37 U/L 01/07/2025 8:15 PM T [facility] ALT 49 14 - 55 U/L 01/07/2025 8:15 PM T [facility] ALKALINE PHOSPHATASE S/P/B 73 50 - 136 U/L 01/07/2025 8:15 PM T [facility] ANION GAP 9.9 5 - 15 MMOL/L 01/07/2025 8:15 PM [facility] BUN CREATININE RATIO 6.9 6 - 26 01/07/2025 8:15 PM [facility] A/G RATIO 1.1 1.0 - 2.0 RATIO 01/07/2025 8:15 PM [facility] GFR ESTIMATE >90 >90 ML/MIN/1.7 3 M2 01/07/2025 8:15 PM [facility] Comment: NOTE: eGFR is not calculated for patients <18 years of age. This is an estimated GFR calculation using the new CKD EPI creatinine equation without race and so does not require a correction factor for race. This estimated GFR should not be used for calculating drug doses. 01/07/2025 7:54 PM CDT us Ced Douglas MD LABORATORY Final Resul t [facility] [address] [place] [address], * (ABNORMAL) CBC W/DIFF AUTOMATED (01/07/2025 7:54 PM CDT) [facility] WBC 8.56 4.4 - 11.0 x10'3/uL 01/07/2025 8:02 PM CDT [facility] RBC 5.01 4.50 - 5.10 x10'6/uL 01/07/2025 8:02 PM CDT [facility] HGB 15.0 12.3 - 15.3 G/DL 01/07/2025 8:02 PM CDT [facility] HCT 42.8 35.9 - 44.6 % 01/07/2025 8:02 PM CDT [facility] MCV 85.4 80.0 - 96.0 FL 01/07/2025 8:02 PM CDT [facility] MCH 29.9 25.3 - 30.9 PG 01/07/2025 8:02 PM CDT [facility] MCHC 35.0(H) 31.0 - 34.1 G/DL 01/07/2025 8:02 PM CDT [facility] RDW 12.1(L) 12.4 - 15.1 % 01/07/2025 8:02 PM CDT [facility] PLT 230 151 - 353 x10'3/uL 01/07/2025 8:02 PM CDT [facility] MPV 9.2(L) 9.6 - 12.0 FL 01/07/2025 8:02 PM CDT [facility] RBC MORPHOLOGY NORMAL 01/07/2025 8:02 PM CDT [facility] PLT MORPH. NORMAL 01/07/2025 8:02 PM CDT [facility] WBC MORPHOLOGY NORMAL 01/07/2025 8:02 PM CDT [facility] LYMPHOCYTES % 22.2 15.8 - 45.0 % 01/07/2025 8:02 PM CDT [facility] NEUTROPHILS % 71.9 42.1 - 71.9 % 01/07/2025 8:02 PM CDT [facility] MONOCYTES % 4.7(L) 5.7 - 12.5 % 01/07/2025 8:02 PM CDT [facility] EOSINOPHILS 0.9 0.0 - 5.6 % 01/07/2025 8:02 PM CDT [facility] BASOPHILS 0.2 0.0 - 1.3 % 01/07/2025 8:02 PM CDT [facility] ABS. NEUTROPHILS 6.15(H) 1.40 - 6.00 x10'3/uL 01/07/2025 8:02 PM CDT [facility] IMMATURE GRANS % 0.1 0.0 - 0.5 % 01/07/2025 8:02 PM CDT [facility] ABS. LYMPHOCYTES 1.90 0.80 - 4.70 x10'3/uL 01/07/2025 8:02 PM CDT [facility] 01/07/2025 7:54 PM CDT us Ced Douglas MD LABORATORY Final Resul t [facility] [address] [place] [address], * CK (CPK) (01/07/2025 7:54 PM CDT) CPK 53 26 - 192 U/L 01/07/2025 8:15 PM CDT [facility] 01/07/2025 7:54 PM CDT Ced Douglas MD LABORATORY Final Resul t [facility] [address] [place] [address], [place] [phone] * PAP SMEAR (09/04/2019) 09/04/2019 Narrative 09/04/2019 Ordered by an unspecified provider. us Documents Scanned SCANNING Final Result from Last 3 Months or Most Recently Relevant to Health Maintenance Insurance [place] Advance Directives * Full Code (Latest Code Status on File) Date Activated Date Inactivated Comments 04/08/2020 2:09 PM 04/11/2020 12:11 AM * Full Code Date Activated Date Inactivated Comments 04/01/2020 2:08 PM 04/01/2020 5:39 PM * Full Code Date Activated Date Inactivated Comments 03/01/2020 3:01 PM 03/01/2020 5:35 PM Care Teams Scientific Publications Editor Relationship Specialty Start Date End Date Elin Chau NP [address] [place] [phone] PCP - General NURSE PRACTITIONER 03/19/24
--- OUTSIDE RECORDS SUMMARY | 2025-03-19 09:09 | XMS_ITS | Encounter Summary ---
Author Organization [facility] Address [address] [place] [address] Care Team Providers Care Communications Engineer Name Role Phone Lakshmi Flor MD Primary Care Provider Unavailab Airam Weinstein COMPENSATION BUSINESS PARTNER Primary Care Provider Unav ailable Won Faustin MD Primary Care Provider [phone] Elin Chau COMPENSATION BUSINESS PARTNER Primary Care Provider [phone] Encounter Details Date Type Department Care Team (Late Contact Info) Description 07/28/2016 Abstract [facility] CONVERSION [address] [place] [address] , Generic ConversionMD Social History Tobacco Use [...] Description 03/24/2025 8:40 AM CDT Office Visit [facility] Medical Group Multispecialty Care - [facility] [address] [facility], [address] [place] [address] Gildardo Chao MD [address] [place] [address] 03/30/2025 2:15 PM CDT [facility] [address] [place] [address] Maqruis Salmeron MD Three [facility]. [address] [place] [address] 05/18/2025 1:20 PM OPENER TENDER Office Visit [facility] Medical Group Multispecialty Care - [facility] [address] [facility], [address] [place] [phone] Gildardo Chao MD [address] [place] [address] documented as of this encounter Visit Diagnoses Not on filedocumented in this encounter Additional Health Concerns Infection Onset Date Last Indicated Resolved Time COVID-19 Rule Out 06/07/2021 06/07/2021 06/07/2021 11:27 AM OPENER TENDER COVID-19 Confirmed 06/07/2021 06/07/2021 12:32 AM OPENER TENDER COVID-19 Rule Out 08/07/2023 08/07/2023 08/07/2023 9:37 AM OPENER TENDER Influenza - Seasonal 08/07/2023 08/07/2023 024 12:33 AM OPENER TENDER COVID-19 Rule Out 08/07/2023 08/07/2023 08/07/2023 12:46 PM OPENER TENDER Respiratory Rule Out 11/23/2024 11/23/2024 025 7:34 PM CDT COVID-19 Rule Out 11/23/2024 11/23/2024 11/23/2024 7:33 PM CDT documented as of this encounter Care Teams Communications Engineer Relationship Specialty Start Date End Date Lakshmi Flor MD PCP - General INTERNAL MEDICINE 09/27/17 03/18/20 Airam Daniel NP PCP - General NURSE PRACTITIONER 03/19/20 05/16/21 [place] [address] [place] [address] PCP - General FAMILY PRACTICE 05/17/21 03/18/24 Elin Chau NP [address] [place] [address] PCP - General NURSE PRACTITIONER 03/19/24 documented as of this encounter
--- OUTSIDE RECORDS SUMMARY | 2025-03-19 09:09 | XMS_ITS | Encounter Summary ---
Author Organization [facility] Address [facility]ly [facility] [place] [address] Care Team Providers Care Termite Treater Helper Name Role Phone Won Faustin MD Primary Care Provider [phone] Elin Chau NP Primary Care Provider [phone] Encounter Details Date Type Department Care Team ([facility] Contact Info) Description 06/07/2021 [email or web address] Message Enc [facility] Medical Group Family & Internal Medicine [facility] [id number] [place] [phone] Won Faustin MD [address] [place] [address] Medication refill Social History Tobacco Use [...] Coronavirus / COVID-19? Yes 06/07/2021 10:32 AM FIELD AUTO APPRAISER documented as of this encounter Functional Status [...] 10:57 AM Jen Arias RN Active * [place] Suicide Severity Rating Scale (Screener/Recent Self-Report) Question [...] Description 03/24/2025 8:40 AM CDT Office Visit [facility] [address] [facility], [address] [place] [address] Gildardo Chao MD [address] [place] [address] 03/30/2025 2:15 PM CDT Office Visit [facility] [address] [place] [address] Marquis Salmeron MD Three [facility]. [address] [facility] [place] [address] 05/18/2025 1:20 PM FIELD AUTO APPRAISER Office Visit [facility] [address] [facility], [address] [place] [address] Gildardo Chao MD [address] [place] [address] documented as of this encounter Visit Diagnoses Not on filedocumented in this encounter Additional Health Concerns Infection Onset Date Last Indicated Resolved Time COVID-19 Rule Out 06/07/2021 06/07/2021 06/07/2021 11:27 AM FIELD AUTO APPRAISER COVID-19 Confirmed 06/07/2021 06/07/2021 12:32 AM FIELD AUTO APPRAISER COVID-19 Rule Out 08/07/2023 08/07/2023 08/07/2023 9:37 AM FIELD AUTO APPRAISER Influenza - Seasonal 08/07/2023 08/07/2023 024 12:33 AM FIELD AUTO APPRAISER COVID-19 Rule Out 08/07/2023 08/07/2023 08/07/2023 12:46 PM FIELD AUTO APPRAISER Respiratory Rule Out 11/23/2024 11/23/2024 025 7:34 PM CDT COVID-19 Rule Out 11/23/2024 11/23/2024 11/23/2024 7:33 PM CDT documented as of this encounter Care Teams Termite Treater Helper Relationship Specialty [place] [address] [place] [address] PCP - General FAMILY PRACTICE 05/17/21 03/18/24 Elin Chau NP [address] [place] [address] PCP - General NURSE PRACTITIONER 03/19/24 documented as of this encounter
--- OUTSIDE RECORDS SUMMARY | 2025-03-19 09:09 | XMS_ITS | Encounter Summary ---
Author Organization [facility] Address [facility] [place] [address] Care Team Providers Care Department Clerk Name Role Phone Elin Chau METHODOLOGIST Primary Care Provider [phone] Encounter Details Date Type Department Care Team (Late st Contact Info) Description 12/15/2024 Lucky Pai Message Enc [facility] Medical Group Multispecialty Care - [facility] [address] [facility] [address], [address] [place] [phone] Tara, [facility] Provider Results Social History Tobacco Use Types [...] Description 03/24/2025 8:40 AM CDT Office Visit [facility] 3 [facility], [address] [place] [address] Gildardo Chao MD 3 [place] [address] 03/30/2025 2:15 PM CDT [facility] [address] [place] [address] Marquis Salmeron MD [facility]. [address] [place] [address] 05/18/2025 1:20 PM BELT POLISHER Office Visit [facility] - [facility] [address] [facility], [address] [place] [address] Gildardo Chao MD [address] [place] [address] documented as of this encounter Visit Diagnoses Not on filedocumented in this encounter Care Teams Department Clerk Relationship Specialty Start Date End Date Elin Chau NP [address] [place] [address] PCP - General NURSE PRACTITIONER 03/19/24 documented as of this encounter
--- OUTSIDE RECORDS SUMMARY | 2025-03-19 09:09 | XMS_ITS | Encounter Summary ---
Author Organization [facility] Address [address] [place] [address] Care Team Providers Care School Laboratory Technician Name Role Phone Lakshmi Flor MD Primary Care Provider Unavailab Airam Weinstein BRICK SETTER OPERATOR Primary Care Provider Unav ailable Won Faustin MD Primary Care Provider [phone] Elin Chau BRICK SETTER OPERATOR Primary Care Provider [phone] Encounter Details Date Type Department Care Team (Late Contact Info) Description 11/15/2016 Abstract [facility] CONVERSION [address] [place] [address] , Generic ConversionMD Social History Tobacco Use [...] [facility] Multis[facility]ialty Care - [facility] 3 [facility], [address] [place] [address] Gildardo Chao MD [address] [place] [address] 03/30/2025 2:15 PM CDT Office [facility] [address] [place] [address] Marquis Salmeron MD Three [facility]. [address] [place] [address] 05/18/2025 1:20 PM PERSONAL LOAN SPECIALIST Office Visit [facility] Medical Group Multispecialty Care - [facility] 3 [facility], [address] [place] [address] Gildardo Chao MD 3 [place] [address] documented as of this encounter Visit Diagnoses Not on filedocumented in this encounter Additional Health Concerns Infection Onset Date Last Indicated Resolved Time COVID-19 Rule Out 06/07/2021 06/07/2021 06/07/2021 11:27 AM PERSONAL LOAN SPECIALIST COVID-19 Confirmed 06/07/2021 06/07/2021 12:32 AM PERSONAL LOAN SPECIALIST COVID-19 Rule Out 08/07/2023 08/07/2023 08/07/2023 9:37 AM PERSONAL LOAN SPECIALIST Influenza - Seasonal 08/07/2023 08/07/2023 024 12:33 AM PERSONAL LOAN SPECIALIST COVID-19 Rule Out 08/07/2023 08/07/2023 08/07/2023 12:46 PM PERSONAL LOAN SPECIALIST Respiratory Rule Out 11/23/2024 11/23/2024 025 7:34 PM CDT COVID-19 Rule Out 11/23/2024 11/23/2024 11/23/2024 7:33 PM CDT documented as of this encounter Care Teams School Laboratory Technician Relationship Specialty Start Date End Date Lakshmi Flor MD PCP - General INTERNAL MEDICINE 09/27/17 03/18/20 Airam Daniel NP PCP - General NURSE PRACTITIONER 03/19/20 05/16/21 [place] [address] [place] [address] PCP - General FAMILY PRACTICE 05/17/21 03/18/24 Elin Chau NP [address] [place] [address] PCP - General NURSE PRACTITIONER 03/19/24 documented as of this encounter
--- OUTSIDE RECORDS SUMMARY | 2025-03-19 09:09 | XMS_ITS | Encounter Summary ---
Author Organization [facility] Address [address] [place] [address] Care Team Providers Care Moth Proofer Name Role Phone Lakshmi Flor MD Primary Care Provider Unavailab Airam Weinstein COUNTY AGRICULTURAL AGENT Primary Care Provider Unav ailable Won Faustin MD Primary Care Provider [phone] Elin Chau COUNTY AGRICULTURAL AGENT Primary Care Provider [phone] Encounter Details Date Type Department Care Team (Late Contact Info) Description 11/22/2016 Abstract [facility] CONVERSION [address] [place] [address] , Generic ConversionMD Social History Tobacco Use [...] [facility] - [facility] 3 [facility], [address] [place] [address] Gildardo Chao MD [address] [place] [address] 03/30/2025 2:15 PM CDT [facility] [address] [place] [address] Marquis Salmeron MD Three [facility]. [address] [place] [address] 05/18/2025 1:20 PM RETAIL SEASONAL SPECIALIST Office Visit [facility] Medical Group Multispecialty Care - [facility] 3 [facility], [address] [place] [phone] Gildrado Chao MD [address] [place] [address] documented as of this encounter Visit Diagnoses Not on filedocumented in this encounter Additional Health Concerns Infection Onset Date Last Indicated Resolved Time COVID-19 Rule Out 06/07/2021 06/07/2021 06/07/2021 11:27 AM RETAIL SEASONAL SPECIALIST COVID-19 Confirmed 06/07/2021 06/07/2021 12:32 AM RETAIL SEASONAL SPECIALIST COVID-19 Rule Out 08/07/2023 08/07/2023 08/07/2023 9:37 AM RETAIL SEASONAL SPECIALIST Influenza - Seasonal 08/07/2023 08/07/2023 024 12:33 AM RETAIL SEASONAL SPECIALIST COVID-19 Rule Out 08/07/2023 08/07/2023 08/07/2023 12:46 PM RETAIL SEASONAL SPECIALIST Respiratory Rule Out 11/23/2024 11/23/2024 025 7:34 PM CDT COVID-19 Rule Out 11/23/2024 11/23/2024 11/23/2024 7:33 PM CDT documented as of this encounter Care Teams Moth Proofer Relationship Specialty Start Date End Date Lakshmi Flor MD PCP - General INTERNAL MEDICINE 09/27/17 03/18/20 Airam Daniel NP PCP - General NURSE PRACTITIONER 03/19/20 05/16/21 [place] [address] [place] [address] PCP - General FAMILY PRACTICE 05/17/21 03/18/24 Elin Chau NP [address] [place] [address] PCP - General NURSE PRACTITIONER 03/19/24 documented as of this encounter
--- OUTSIDE RECORDS SUMMARY | 2025-03-19 09:09 | XMS_ITS | Clinical Summary ---
Author Organization [facility] Address [address] [place] [address] [place] [address] Care Team Providers Care Log Peeler Name Role Phone Unavailable Primary Care Provider Unavailabl e Source Comments [facility],non-owned Affiliates and Associated Physician Practices is amultiple site organization consisting of ambulatory clinics and hospital sitesin [place], [place] and [place]. This disclosure is being madepursuant to the Care Everywhere program and may not contain all information available regarding this patient. Last updated 18.[facility] Allergies No known active allergies Medications [...] 02/02/2025 9:55 PM CDT Emergency ER at [address] [address] History of psychogenic nonepileptic seizure; Psychogenic nonepileptic [...] on file Legal Sex Female 5:38 AM TIE BUCKER Gender Identity Not on file Sexual Orientation [...] 19+ 3-dose series) 2016 PAP SMEAR 2018 DEPRESSION SCREENING 07/16/2024 HPV VACCINE (1 - 3-dose SCDM series) 2024 COVID-19 VACCINE (1 - season) 2025 INFLUENZA VACCINE (#1) 2025 7, 07/05/2016, 08/01/2013, [...] - 11.0 % 02/02/2025 8:46 PM CDT [facility] Eosinophil % 1.0 0.0 - 7.0 % 02/02/2025 8:46 PM CDT [facility] Basophil % 0.2 0.0 - 1.6 % 02/02/2025 8:46 PM CDT [facility] Immature Granulocytes % 0.2 0.0 - 1.0 % 02/02/2025 8:46 PM CDT [facility] Neutrophil Absolute 5.66 1.60 - 7.50 x10E9/L 02/02/2025 8:46 PM CDT [facility] Lymphocyte Absolute 2.47 1.00 - 4.40 x10E9/L 02/02/2025 8:46 PM CDT [facility] Monocyte Absolute 0.57 0.15 - 1.00 x10E9/L 02/02/2025 8:46 PM CDT [facility] Eosinophil Absolute 0.09 0.00 - 0.60 x10E9/L 02/02/2025 8:46 PM CDT [facility] Basophil Absolute 0.02 0.00 - 0.13 x10E9/L 02/02/2025 8:46 PM CDT [facility] Blood BLOOD SPECIMEN / Unknown Venipuncture / Unknown 02/02/2025 8:41 PM CDT 02/02/2025 8:44 PM CDT Eder Pennington PA-C LAB - HEMATOLOGY ORDERAB LES Final Result [facility] [address] [place] [address] * (ABNORMAL) COMPREHENSIVE METABOLIC PANEL (02/02/2025 8:41 PM CDT) [facility] Glucose 99 70 - 99 mg/dL 02/02/2025 9:03 PM CDT [facility] Sodium 139 136 - 145 mmol/L 02/02/2025 9:03 PM CDT [facility] Potassium 3.3(L) 3.5 - 5.1 mmol/L 02/02/2025 9:03 PM CDT [facility] Chloride 109(H) 98 - 107 mmol/L 02/02/2025 9:03 PM [facility] CO2 19(L) 22 - 29 mmol/L 02/02/2025 9:03 PM [facility] Calcium 9.0 8.4 - 10.4 mg/dL 02/02/2025 9:03 PM [facility] Anion Gap 11 6 - 16 mmol/L 02/02/2025 9:03 PM [facility] BUN 12 5.3 - 18.7 mg/dL 02/02/2025 9:03 PM [facility] Creatinine 0.75 0.57 - 1.11 mg/dL 02/02/2025 9:03 PM [facility] Alkaline Phosphatase 55 40 - 150 U/L 02/02/2025 9:03 PM [facility] ALT 29 6 - 57 U/L 02/02/2025 9:03 PM [facility] AST 22 10 - 48 U/L 02/02/2025 9:03 PM [facility] Protein Total 7.1 6.4 - 8.3 gm/dL 02/02/2025 9:03 PM [facility] Albumin 4.4 3.1 - 4.5 gm/dL 02/02/2025 9:03 PM [facility] Bilirubin Total 1.0 0.2 - 1.2 mg/dL 02/02/2025 9:03 PM [facility] eGFR by CKD-EPI >90 >=90 mL/min/1.7 3 m2 02/02/2025 9:03 PM [facility] Comment:Estimated Glomerular Filtration Rate (eGFR) calculated using the CKD-EPI Creatinine Equation (2020), per the National Kidney Foundation and [place] Society [employer] Neph[employer] recommendations. Blood BLOOD SPECIMEN / Unknown Venipuncture / Unknown 02/02/2025 8:41 PM CDT 02/02/2025 8:44 PM CDT us Eder Pennington PA-C LAB - CHEMISTRY ORDERABL ES Final Result [facility] [address] [facility] [place] [address] * HCG BLOOD QUALITATIVE (02/02/2025 8:41 PM CDT) HCG Qual Serum Negative Negative 02/02/2025 8:58 PM CDT [facility] Blood BLOOD SPECIMEN / Unknown Venipuncture / Unknown 02/02/2025 8:41 PM CDT 02/02/2025 8:44 PM CDT Narrative [facility] - 02/02/2025 8:58 PM CDT Specimens containing human anti-mouse antibodies may exhibit false positive or false negative results. If qualitative interpretation is inconsistent with clinical evaluation, consider confirmation by an alternative hCG method. Eder Pennington PA-C LAB - CHEMISTRY ORDERABL ES Final Result [facility] [address] [place] [address] from Last 3 Months Insurance [facility]
--- OUTSIDE RECORDS SUMMARY | 2025-03-19 09:09 | XMS_ITS | Clinical Summary ---
Author Organization [facility] Address [address] [place] [address] Care Team Providers Care Workers Compensation Administrator Name Role Phone Unknown, Notinfile Primary Care [...] 06/02/2024 Assessment & Plan (06/02/2024 11:51 AM AIRPLANE GAS TANK LINER ASSEMBLER): No papilledema on multiple exams, HVF and [...] on file Legal Sex Female 4:24 AM AIRPLANE GAS TANK LINER ASSEMBLER Gender Identity Not on file Sexual Orientation Not on file Obstetrics History Last Filed Vital Signs Vital Sign Reading Time Taken Comments Blood Pressure 128/95 05/28/2024 3:31 PM AIRPLANE GAS TANK LINER ASSEMBLER Pulse 70 05/28/2024 3:31 PM AIRPLANE GAS TANK LINER ASSEMBLER Temperature 36.7 C (98.1 F) 05/28/2024 11:51 AM AIRPLANE GAS TANK LINER ASSEMBLER Respiratory Rate 16 05/28/2024 3:31 PM AIRPLANE GAS TANK LINER ASSEMBLER Oxygen Saturation 99% 05/28/2024 3:31 PM AIRPLANE GAS TANK LINER ASSEMBLER Inhaled Oxygen Concentration - - Weight 104.3 kg (229 lb 15 oz) 05/28/2024 11:51 AM AIRPLANE GAS TANK LINER ASSEMBLER Height 165.1 cm (5' 5) 05/28/2024 11:51 AM AIRPLANE GAS TANK LINER ASSEMBLER Body Mass Index 38.26 05/28/2024 11:51 AM AIRPLANE GAS TANK LINER ASSEMBLER Plan of Treatment Health Maintenance Due Date [...] Vaccines Completed 01/27/2009, 06/02/1999 Insurance Care Teams Workers Compensation Administrator Relationship Specialty Start Date End Date Unknown, Notinfile PCP - General 05/22/24
--- OUTSIDE RECORDS SUMMARY | 2025-03-19 09:09 | XMS_ITS | Encounter Summary ---
Author Organization [facility] Address [address] [place] [address] Care Team Providers Care Band Maker Name Role Phone Lakshmi Flor MD Primary Care Provider Unavailab Airam Weinstein FIELD INSTRUCTOR Primary Care Provider Unav ailable Won Faustin MD Primary Care Provider [phone] Elin Chau FIELD INSTRUCTOR Primary Care Provider [phone] Encounter Details Date Type Department Care Team (Late Contact Info) Description 11/12/2014 Abstract [facility] CONVERSION [address] [place] [address] , Generic ConversionMD Social History Tobacco Use [...] [facility] - [facility] 3 [facility], [address] [place] [address] Gildardo Chao MD [address] [place] [address] 03/30/2025 2:15 PM CDT [facility] [address] [place] [phone] Marquis Salmeron MD Three [facility]. [address] [place] [address] 05/18/2025 1:20 PM GAS BOOSTER ENGINEER Office Visit [facility] Mult[facility]pecialty Care - [facility] 3 [facility], [address] [place] [phone] Gildardo Chao MD [address] [place] [address] documented as of this encounter Visit Diagnoses Not on filedocumented in this encounter Additional Health Concerns Infection Onset Date Last Indicated Resolved Time COVID-19 Rule Out 06/07/2021 06/07/2021 06/07/2021 11:27 AM GAS BOOSTER ENGINEER COVID-19 Confirmed 06/07/2021 06/07/2021 12:32 AM GAS BOOSTER ENGINEER COVID-19 Rule Out 08/07/2023 08/07/2023 08/07/2023 9:37 AM GAS BOOSTER ENGINEER Influenza - Seasonal 08/07/2023 08/07/2023 024 12:33 AM GAS BOOSTER ENGINEER COVID-19 Rule Out 08/07/2023 08/07/2023 08/07/2023 12:46 PM GAS BOOSTER ENGINEER Respiratory Rule Out 11/23/2024 11/23/2024 025 7:34 PM CDT COVID-19 Rule Out 11/23/2024 11/23/2024 11/23/2024 7:33 PM CDT documented as of this encounter Care Teams Band Maker Relationship Specialty Start Date End Date Lakshmi Flor MD PCP - General INTERNAL MEDICINE 09/27/17 03/18/20 Airam Daniel NP PCP - General NURSE PRACTITIONER 03/19/20 05/16/21 [place] [address] [place] [address] PCP - General FAMILY PRACTICE 05/17/21 03/18/24 Elin Chau NP [address] [place] [address] PCP - General NURSE PRACTITIONER 03/19/24 documented as of this encounter
--- OUTSIDE RECORDS SUMMARY | 2025-03-19 09:09 | XMS_ITS | Encounter Summary ---
Author Organization [facility] Address [address] [place] [address] Care Team Providers Care Rocket Engine Component Mechanic Name Role Phone Lakshmi Flor MD Primary Care Provider Unavailab Airam Weinstein SENIOR ONLINE MARKETING MANAGER Primary Care Provider Unav ailable Won Faustin MD Primary Care Provider [phone] Elin Chau SENIOR ONLINE MARKETING MANAGER Primary Care Provider [phone] Encounter Details Date Type Department Care Team (Late Contact Info) Description 02/27/2014 Abstract [facility] CONVERSION [address] [place] [address] , Generic ConversionMD Social History Tobacco Use [...] [facility] - [facility] [address] [facility], [address] [place] [address] Gildardo Chao MD [address] [place] [address] 03/30/2025 2:15 PM CDT [facility] [address] [place] [address] Marquis Salmeron MD Three [facility]. [address] [place] [address] 05/18/2025 1:20 PM SUPERVISOR TESTING [facility] - [facility] [address] [facility], [address] [place] [phone] Gildardo Chao MD [address] [place] [address] documented as of this encounter Visit Diagnoses Not on filedocumented in this encounter Additional Health Concerns Infection Onset Date Last Indicated Resolved Time COVID-19 Rule Out 06/07/2021 06/07/2021 06/07/2021 11:27 AM SUPERVISOR TESTING COVID-19 Confirmed 06/07/2021 06/07/2021 12:32 AM SUPERVISOR TESTING COVID-19 Rule Out 08/07/2023 08/07/2023 08/07/2023 9:37 AM SUPERVISOR TESTING Influenza - Seasonal 08/07/2023 08/07/2023 024 12:33 AM SUPERVISOR TESTING COVID-19 Rule Out 08/07/2023 08/07/2023 08/07/2023 12:46 PM SUPERVISOR TESTING Respiratory Rule Out 11/23/2024 11/23/2024 025 7:34 PM CDT COVID-19 Rule Out 11/23/2024 11/23/2024 11/23/2024 7:33 PM CDT documented as of this encounter Care Teams Rocket Engine Component Mechanic Relationship Specialty Start Date End Date Lakshmi Flor MD PCP - General INTERNAL MEDICINE 09/27/17 03/18/20 Airam Daniel NP PCP - General NURSE PRACTITIONER 03/19/20 05/16/21 [place] [address] [place] [address] PCP - General FAMILY PRACTICE 05/17/21 03/18/24 Elin Chau NP [address] [place] [address] PCP - General NURSE PRACTITIONER 03/19/24 documented as of this encounter
--- OUTSIDE RECORDS SUMMARY | 2025-03-19 09:09 | XMS_ITS | Encounter Summary ---
Author Organization [facility] Address [address] [place] [address] Care Team Providers Care Director Of Graduate Medical Education Name Role Phone Lakshmi Flor MD Primary Care Provider Unavailab Airam Weinstein GANG VIBRATOR OPERATOR Primary Care Provider Unav ailable Won Faustin MD Primary Care Provider [phone] Elin Chau GANG VIBRATOR OPERATOR Primary Care Provider [phone] Encounter Details Date Type Department Care Team (Late Contact Info) Description 07/22/2015 Abstract [facility] CONVERSION [address] [place] [address] , Generic ConversionMD Social History Tobacco Use [...] Description 03/24/2025 8:40 AM CDT Office Visit [facility] Medical Group Multispecialty Care - [facility] 3 [facility], [address] [place] [address] Gildardo Chao MD [address] [place] [address] 03/30/2025 2:15 PM CDT [facility] [address] [place] [address] Marquis Salmeron MD Three [facility]. [address] [place] [address] 05/18/2025 1:20 PM MANAGEMENT ACCOUNTANT Office Visit [facility] Medical Group Multispecialty Care - [facility] 3 [facility], [address] [place] [phone] Gildardo Chao MD [address] [place] [address] documented as of this encounter Visit Diagnoses Not on filedocumented in this encounter Additional Health Concerns Infection Onset Date Last Indicated Resolved Time COVID-19 Rule Out 06/07/2021 06/07/2021 06/07/2021 11:27 AM MANAGEMENT ACCOUNTANT COVID-19 Confirmed 06/07/2021 06/07/2021 12:32 AM MANAGEMENT ACCOUNTANT COVID-19 Rule Out 08/07/2023 08/07/2023 08/07/2023 9:37 AM MANAGEMENT ACCOUNTANT Influenza - Seasonal 08/07/2023 08/07/2023 024 12:33 AM MANAGEMENT ACCOUNTANT COVID-19 Rule Out 08/07/2023 08/07/2023 08/07/2023 12:46 PM MANAGEMENT ACCOUNTANT Respiratory Rule Out 11/23/2024 11/23/2024 025 7:34 PM CDT COVID-19 Rule Out 11/23/2024 11/23/2024 11/23/2024 7:33 PM CDT documented as of this encounter Care Teams Director Of Graduate Medical Education Relationship Specialty Start Date End Date Lakshmi Flor MD PCP - General INTERNAL MEDICINE 09/27/17 03/18/20 Airam Daniel NP PCP - General NURSE PRACTITIONER 03/19/20 05/16/21 [place] [address] [place] [address] PCP - General FAMILY PRACTICE 05/17/21 03/18/24 Elin Chau NP [address] [place] [address] PCP - General NURSE PRACTITIONER 03/19/24 documented as of this encounter
--- OUTSIDE RECORDS SUMMARY | 2025-03-19 09:09 | XMS_ITS | Encounter Summary ---
Author Organization [facility] Address [address] [place] [address] Care Team Providers Care Quick Mixer Operator Name Role Phone Lakshmi Flor MD Primary Care Provider Unavailab Airam Weinstein DAIRY FARM MANAGER Primary Care Provider Unav ailable Won Faustin MD Primary Care Provider [phone] Elin Chau DAIRY FARM MANAGER Primary Care Provider [phone] Encounter Details Date Type Department Care Team (Late Contact Info) Description 12/09/2014 Abstract [facility] CONVERSION [address] [place] [address] , Generic ConversionMD Social History Tobacco Use [...] Description 03/24/2025 8:40 AM CDT Office Visit [facility] Medical Group Multispecialty Care - [facility] 3 [facility], [address] [place] [address] Gildardo Chao MD [address] [place] [address] 03/30/2025 2:15 PM CDT [facility] [address] [address] Marquis Salmeron MD Three [facility]. [address] [place] [address] 05/18/2025 1:20 PM BRIM POUNCING MACHINE OPERATOR Office Visit [facility] Medical Group Multispecialty Care - [facility] 3 [facility], [address] [place] [address] Gildardo Chao MD [address] [place] [address] documented as of this encounter Visit Diagnoses Not on filedocumented in this encounter Additional Health Concerns Infection Onset Date Last Indicated Resolved Time COVID-19 Rule Out 06/07/2021 06/07/2021 06/07/2021 11:27 AM BRIM POUNCING MACHINE OPERATOR COVID-19 Confirmed 06/07/2021 06/07/2021 12:32 AM BRIM POUNCING MACHINE OPERATOR COVID-19 Rule Out 08/07/2023 08/07/2023 08/07/2023 9:37 AM BRIM POUNCING MACHINE OPERATOR Influenza - Seasonal 08/07/2023 08/07/2023 024 12:33 AM BRIM POUNCING MACHINE OPERATOR COVID-19 Rule Out 08/07/2023 08/07/2023 08/07/2023 12:46 PM BRIM POUNCING MACHINE OPERATOR Respiratory Rule Out 11/23/2024 11/23/2024 025 7:34 PM CDT COVID-19 Rule Out 11/23/2024 11/23/2024 11/23/2024 7:33 PM CDT documented as of this encounter Care Teams Quick Mixer Operator Relationship Specialty Start Date End Date Lakshmi Flor MD PCP - General INTERNAL MEDICINE 09/27/17 03/18/20 Airam Daniel NP PCP - General NURSE PRACTITIONER 03/19/20 05/16/21 [place] [address] [place] [address] PCP - General FAMILY PRACTICE 05/17/21 03/18/24 Elin Chau NP [address] [place] [address] PCP - General NURSE PRACTITIONER 03/19/24 documented as of this encounter
--- OUTSIDE RECORDS SUMMARY | 2025-03-19 09:09 | XMS_ITS | Encounter Summary ---
Author Organization [facility] Address [address] [place] [address] Care Team Providers Care Brick Machine Operator Name Role Phone Lakshmi Flor MD Primary Care Provider Unavailab Airam Weinstein MEDICAL BILLING REPRESENTATIVE Primary Care Provider Unav ailable Won Faustin MD Primary Care Provider [phone] Elin Chau MEDICAL BILLING REPRESENTATIVE Primary Care Provider [phone] Encounter Details Date Type Department Care Team (Late Contact Info) Description 10/31/2014 Abstract [facility] CONVERSION [address] [place] [address] , Generic ConversionMD Social History Tobacco Use [...] [facility] - [facility] 3 [facility], [address] [place] [address] Gildardo Chao MD [address] [place] [address] 03/30/2025 2:15 PM CDT [facility] [address] [place] [address] Marquis Salmeron MD Three [facility]. [address] [place] [address] 05/18/2025 1:20 PM PUBLIC HEALTH Office Visit [facility] Medical Group Multispecialty Care - [facility] 3 [facility], [address] [place] [address] Gildardo Chao MD [address] [place] [address] documented as of this encounter Visit Diagnoses Not on filedocumented in this encounter Additional Health Concerns Infection Onset Date Last Indicated Resolved Time COVID-19 Rule Out 06/07/2021 06/07/2021 06/07/2021 11:27 AM PUBLIC HEALTH COVID-19 Confirmed 06/07/2021 06/07/2021 12:32 AM PUBLIC HEALTH COVID-19 Rule Out 08/07/2023 08/07/2023 08/07/2023 9:37 AM PUBLIC HEALTH Influenza - Seasonal 08/07/2023 08/07/2023 024 12:33 AM PUBLIC HEALTH COVID-19 Rule Out 08/07/2023 08/07/2023 08/07/2023 12:46 PM PUBLIC HEALTH Respiratory Rule Out 11/23/2024 11/23/2024 025 7:34 PM CDT COVID-19 Rule Out 11/23/2024 11/23/2024 11/23/2024 7:33 PM CDT documented as of this encounter Care Teams Brick Machine Operator Relationship Specialty Start Date End Date Lakshmi Flor MD PCP - General INTERNAL MEDICINE 09/27/17 03/18/20 Airam Daniel NP PCP - General NURSE PRACTITIONER 03/19/20 05/16/21 [place] [address] [place] [address] PCP - General FAMILY PRACTICE 05/17/21 03/18/24 Elin Chau NP [address] [place] [address] PCP - General NURSE PRACTITIONER 03/19/24 documented as of this encounter
== END 2025-03-19 10:03 | disposition home or self-care (01) ==
PROVIDERS: Emergency Provider Nurse Practitioner Family
DX: S93.402A Sprain of unspecified ligament of left ankle, initial encounter (principal); S93.602A Unspecified sprain of left foot, initial encounter; S93.505A Unspecified sprain of left lesser toe(s), initial encounter; W10.9XXA Fall (on) (from) unspecified stairs and steps, initial encounter; F41.9 Anxiety disorder, unspecified
CPT/HCPCS: 73610; 73630; 99213; G0463

== ENCOUNTER 2025-04-24 09:12 | Emergency (ER) | payer OTHER, SELFPAY ==
--- OUTSIDE RECORDS SUMMARY | 2025-04-15 04:00 | XMS_ITS ---
Author Organization [facility] Address [address] [place] [address] Care Team Providers Care Automobile Tester Name Role Phone Sally Matamoros Primary Care Provider [phone] Soha Coles Unavailable [phone] Results Component Value Reference Range Notes 14 [...] Active Encounters Encounter Location Date Provider Diagnosis [address] [place] [address] 04/15/2025 Sally Matamoros Cannabis use disorder F12.90 Assessments Encounter Date Diagnosis (ICD Code) Assessment Notes Treatment Notes Treatment Clinical Notes Section Notes 04/15/2025 Cannabis use disorder (ICD-10 - F12.90) Plan Of Treatment No Information Progress Notes * Elizabeth LIMDOB:1995 (29 yo F)Acc No.[id number]:04/15/2025 UNLOCKED PROGRESS NOTE Patient: Elizabeth PEDERSON Provider: Ana Matamoros, MSN, METAL ROLLING MILL OPERATOR, MANAGER POWER-C :1995 A ge:29 Y S ex:Female Date:04/15/2025 Address:[address] [place], [place] [id number] Subjective: * Chief Complaints: * 1 . [...] * Electronic signature of Remi Matamoros , [id number] on 04/24/2025 at 09:31 AM CDT Sign off status: Pending * Provider: Ana Matamoros, MSN, METAL ROLLING MILL OPERATOR, MANAGER POWER-C Date: 1 Generated for Jameson flynn/Eileen/Lee on: 09:31 AM CDT
--- NOTE | 2025-04-24 09:19 | ED.URI ---
HPI - URI/Sore Throat General Chief Complaint: Upper Respiratory Infection Stated Complaint: URI Time Seen by Provider: 04/24/25 09:19 History of Present Illness HPI Narrative: 29-year-old female presented for complaint of a sore throat and cough. Onset 4 days. Cough is described as nonproductive. Pt tested negative for COVID at home yesterday. Has been taking Mucinex, NyQuil, DayQuil and Tylenol. Denies associated wheezing, nausea vomiting, diarrhea, fevers or lethargy. Patient vapes. Related Data Home Medications ?Medication ?Instructions ?Recorded ?Confirmed ?Last Taken ?Type clonazepam 0.5 mg tablet 0.5 mg DAILY 06/09/22 08/04/23 Unknown History lisinopril 10 mg tablet mg 03/19/25 Unknown History topiramate 50 mg sprinkle capsule mg PO 03/19/25 Unknown History Allergies Allergy/AdvReac Type Severity Reaction Status Date / Time No Known Allergies Allergy Verified 04/24/25 09:21 Review of Systems Review of Systems: CONSTITUTIONAL: Denies body aches, fever, chills, or sweats. EYES: Denies visual changes, redness, or discharge. ENT: reports sore throat Denies rhinorrhea, congestion, or otalgia. CARDIOVASCULAR: Denies chest pain, palpitations, or edema. RESPIRATORY: Reports cough Denies dyspnea. GASTROINTESTINAL: Denies abdominal pain, nausea, vomiting, or diarrhea. SKIN: Denies rash NEUROLOGIC: Denies headache PMFSH Past Medical History Medical History Anxiety Pseudoseizure Surgical History Surgical History History of appendectomy Social History Social History Smoking status: Never smoker Exam Narrative: GENERAL: well-appearing, no acute distress. EYES: conjunctivae clear ENT: Mucous membranes moist. TM pearly de león with normal light reflex bilaterally; no tragal tenderness. Oropharynx not erythematous without lesions. Tonsils not enlarged and without exudate. No drooling, no hoarseness, no trismus, uvula midline. No tripod positioning, hot potato voice, or soft palate swelling. NECK: Supple. No lymphadenopathy CHEST: Clear to auscultation, breath sounds equal. No respiratory distress, speaks in full sentences. HEART: Regular rate and rhythm. SKIN: Warm, dry, no rash. NEURO: Alert and oriented x3. Course Course Emergency Course: Patient is aware of diagnosis, understands and agrees to treatment plan. Anticipatory guidance given. Patient agrees to follow-up as directed and is aware of reasons to seek care at the emergency department. Portions of this record may have been created with voice recognition software Level of Care: Express Care Visit Vital Signs Vital signs: Vital Signs Temperature 97.3 F L 04/24/25 09:21 Pulse Rate 57 L 04/24/25 09:21 Respiratory Rate 18 04/24/25 09:21 Blood Pressure 120/89 04/24/25 09:21 Pulse Oximetry 100 04/24/25 09:21 Oxygen Delivery Room Air 04/24/25 09:21 Temperature 97.3 F L 04/24/25 09:21 Pulse Rate 57 L 04/24/25 09:21 Respiratory Rate 18 04/24/25 09:21 Blood Pressure 120/89 04/24/25 09:21 Pulse Oximetry 100 04/24/25 09:21 Oxygen Delivery Room Air 04/24/25 09:21 MDM - URI/Sore Throat MDM Narrative Medical decision making narrative: Neg strep result reviewed with pt. Discussed physical exam findings. Advise supportive treatments. Reviewed RX. Patient is appropriate for outpatient treatment and follow-up. Differential Diagnosis Differential diagnosis: Likely upper respiratory infection, viral infection and pharyngitis Discharge Plan Discharge Clinical Impression: Viral infection Patient Disposition: Home Condition: Stable Instructions: Acute Bronchitis (ED) Additional Instructions: Rapid strep swab was negative today You will be notified in a few days if the culture comes back positive for strep, and appropriate antibiotics will be called in at that time. if symptoms are due to a viral illness, it is not treated with antibiotics. Viral symptoms can be present for up to 10-14 days. Take steroid as directed Recommendations: Flonase spray and Zyrtec for sinus congestion Cough syrup may cause drowsiness; avoid driving or take it at night time. Tylenol every 8 hours as needed for pain/fever Soft foods, cool liquids, warm tea. Gargle with warm saltwater twice a day. Chloraseptic spray and throat lozenges. Rest and stay hydrated. --Follow up with your PCP --Go to the ER immediately if you cannot swallow your saliva, trouble breathing/wheezing, throat swelling, pain is persistent and severe Patient Language: Martiniquais Prescriptions: New benzonatate 200 mg capsule 200 mg PO TID PRN (Reason: cough) Qty: 20 0RF prednisone 20 mg tablet 40 mg PO DAILY 5 Days Qty: 10 0RF No Action lisinopril 10 mg tablet topiramate 50 mg capsule, sprinkle PO clonazepam 0.5 mg tablet 0.5 mg DAILY Follow-up/Referrals: Kandi,Elin Pagan, FORGING ROLL OPERATOR [Primary Care Provider, Unknown] Time of Disposition: 09:40
[2025-04-24 09:21] VITALS: BP 120/89; PULSE 57; RESP 18; TEMP 36.3; O2SAT 100
--- OUTSIDE RECORDS SUMMARY | 2025-04-24 09:31 | XMS_ITS | Patient Health Record ---
Author Organization [facility] Address [address] [place] [address] Care Team Providers Care Eligibility Counselor Name Role Phone Sally Matamoros Primary Care Provider [phone] Soha Coles Unavailable [phone] Yanira Pineda Unavailable Latisha Palacios Unavailable [phone] Allergies Allergen (clinical drug ingredient) Drug/Non Drug Allergy documented on EMR Reaction Allergy Type Onset Date Status cariprazine Vraylar nausea and vomiting Drug Allergy Active Results Component Value Reference Range Notes 14 Panel Urine Drug Screen Reviewed date:04/16/2025 10:53:39 AM Interpretation:Abnormal Performing Lab: Notes/Report: Abnormal THC pos KIRT neg MOP (OPI) neg AMP neg MET neg BAR neg BZO neg MDMA neg MTD neg OXY neg PCP neg BUP neg TCA neg FTY neg Reason For Referral Reason Therapy, counseling Diagnosis 1 Bipolar affective di sorder (F31.9) Diagnosis 2 Generalized anxiety disorder (F41.1) Referral Organization [facility] Referring Provider First Name Sally Referring Provider Last Name Saturnino Referring Provider Speciality Psychiatry Referred Provider Specialty Behavioral [facility] General Notes Sally Matamoros 11:06:43 AM > Client with high levels of depression and anxiety. Reports passive SI, denies any plan or intent, but reports wanting to start therapy and have further support as soon as she is able. Please refer. Thank you. Clinical Notes Ahsan Pineda 08/14/2024 02:04:11 PM > Director Financial Services spoke with client who states she has an appointment scheduled next sunday. Director Financial Services will fidelina referral as addressed. 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 Stress is when someone feels tense, nervous, anxious, or can\t sleep at night because their mind is troubled Somewhat In the past year have you sp ent more than 2 nights in a row in a [facility], long-term, [facility] center, or juvenile correctional facility? No Do [...] Status Risk Notes Problem Morbid obesity (disorder) (956255345) Morbid (severe) obesity due to excess calories (E66.01) Active confirmed Problem Generalized anxiety disorder (60296781) Generalized anxiety disorder (F41.1) Active confirmed Problem Tobacco dependence (87846298) Tobacco dependence (F17.200) Active confirmed Problem Anxiety (64321782) Anxiety (F41.9) Active confirmed Problem Bipolar affective disorder (84799514) Bipolar affective disorder (F31.9) Active confirmed Problem Depressive disorder (25946950) Depressive disorder (F32.9) Active confirmed Problem Posttraumatic stress disorder (68051753) Chronic post-traumatic stress disorder (PTSD) (F43.12) Active confirmed Problem Obesity (099960078) Obesity (BMI 30-39.9) (E66.9) Active confirmed Problem Sleep disturbance (27337658) Sleep disturbance, unspecified (G47.9) Active confirmed Problem Body mass index 40+ - severely obese (542697842) Body mass index (BMI) of 40.0-44.9 in [...] 10/07/2024 Encounters Encounter Location Date Provider Diagnosis [facility] [address] [place] [address] 04/15/2025 Sally Matamoros Cannabis use disorder F12.[address] [place] [address] 05/14/2024 Sally Matamoros Generalized anxiety disorder F41.1 ; Bipolar affective disorder F31.9 ; Chronic post-traumatic stress disorder (PTSD) F43.12 ; Sleep disturbance, unspecified G47.9 ; Cannabis use disorder F12.90 and Medication monitoring encounter Z51.[address] [place] [address] 06/02/2024 Sally Matamoros Bipolar affective disorder F31.9 ; Generalized anxiety disorder F41.1 ; Chronic post-traumatic stress disorder (PTSD) F43.12 ; Sleep disturbance, unspecified G47.9 ; Cannabis use disorder F12.90 and Medication monitoring encounter Z51.[address] [address] 08/13/2024 Sallyadi Matamoros Bipolar affective disorder F31.9 ; Generalized anxiety disorder F41.1 ; Chronic post-traumatic stress disorder (PTSD) F43.12 ; Sleep disturbance, unspecified G47.9 ; Cannabis use disorder F12.90 and Medication monitoring encounter Z51.[address] [address] 09/03/2024 Sallyadi Matamoros Bipolar affective disorder F31.9 ; Generalized anxiety disorder F41.1 ; Chronic post-traumatic stress disorder (PTSD) F43.12 ; Sleep disturbance, unspecified G47.9 ; Cannabis use disorder F12.90 and Medication monitoring encounter Z51.[address] [address] 10/01/2024 Sally Matamoros Bipolar affective disorder F31.9 ; Generalized anxiety disorder F41.1 ; Chronic post-traumatic stress disorder (PTSD) F43.12 ; Sleep disturbance, unspecified G47.9 ; Cannabis use disorder F12.90 and Medication monitoring encounter Z51.81 [address] [place] [address] 10/07/2024 Sally Matamoros Bipolar affective disorder F31.9 ; Generalized anxiety disorder F41.1 ; Chronic post-traumatic stress disorder (PTSD) F43.12 ; Sleep disturbance, unspecified G47.9 ; Cannabis use disorder F12.90 and Medication monitoring encounter Z51.[address] [address] 10/15/2024 Latisha Palacios Anxiety F41.9 [address] [place] [address] 10/21/2024 Sally Matamoros Bipolar affective disorder F31.9 ; Generalized anxiety disorder F41.1 ; Chronic post-traumatic stress disorder (PTSD) F43.12 ; Sleep disturbance, unspecified G47.9 ; Cannabis use disorder F12.90 and Medication monitoring encounter Z51.[address] [place] [address] 11/04/2024 Sally Matamoros Bipolar affective disorder F31.9 ; Generalized anxiety disorder F41.1 ; Chronic post-traumatic stress disorder (PTSD) F43.12 ; Sleep disturbance, unspecified G47.9 ; Cannabis use disorder F12.90 and Medication monitoring encounter Z51.[address] [address] 12/25/2024 Sally Matamoros Bipolar affective disorder F31.9 ; Generalized anxiety disorder F41.1 ; Chronic post-traumatic stress disorder (PTSD) F43.12 ; Sleep disturbance, unspecified G47.9 ; Cannabis use disorder F12.90 and Medication monitoring encounter Z51.[address] [place] [address] 01/15/2025 Sally Matamoros Bipolar affective disorder F31.9 ; Generalized anxiety disorder F41.1 ; Chronic post-traumatic stress disorder (PTSD) F43.12 ; Sleep disturbance, unspecified G47.9 ; Cannabis use disorder F12.90 and Medication monitoring encounter Z51.[address] [place] [address] 05/14/2024 Sallyadi Matamoros [address] [place] [address] 05/19/2024 Sally Matamoros Bipolar affective disorder F31.9 [facility] [address] [place] [address] 08/13/2024 Sally Matamoros [facility] [address] [place] [address] 08/14/2024 Sally Matamoros [facility] [address] [place] [address] 08/14/2024 Yanira Pineda [address] [place] [address] 08/26/2024 Sally Matamoros Bipolar affective disorder F31.[address] [place] [address] 10/01/2024 Sally Matamoros [address] [place] [address] 10/01/2024 Sally Matamoros [address] [place] [address] 10/01/2024 Sally Matamoros [facility] [address] [place] [address] 10/10/2024 Sally Matamoros [address] [place] [address] 10/13/2024 Sally Matamoros [address] [place] [address] 10/15/2024 Sally Matamoros [address] [place] [address] 10/16/2024 Sally Matamoros [address] [place] [address] 10/30/2024 Sally Matamoros [address] [place] [address] 12/18/2024 Sally Matamoros Generalized anxiety disorder F41.[address] [address] 12/25/2024 Sally Matamoros [address] [place] [address] 04/14/2025 Sally Matamoros Medication monitoring encounter Z51.81 and Anxiety F41.[address] [facility] [address] 10/17/2024 Sally Manzanonnan [address] [facility] [address] 11/11/2024 Sally Matamoros Bipolar affective disorder F31.[address] [place] [address] 12/07/2024 Sally Matamoros [address] [place] [address] 12/07/2024 Sally Matamoros Generalized anxiety disorder F41.1 Assessments Encounter [...] kidney function and therapeutic blood trough levels. [facility]: Have lithium level drawn after taking [...] Topamax. Client reports SI on lamotrigine. Discussed [facility] 10/07/2024 Bipolar affective disorder (ICD-10 - F31.9) Past: Seroquel Past trials: Seroquel- headache at higher doses. Abilify- just stopped working. Retried Abilify and felt shaky. Risperdal- SE not tolerable. Topamax- headache, slurrred words per client- hx of doing well on Topamax. Client reports SI on lamotrigine. Discussed [facility] 11/04/2024 Bipolar affective disorder (ICD-10 - F31.9) Increase Depakote/Valproic Acid. Take as prescribed. Purpose - promote mood stability. Reviewed side effects, including sedation, dose-dependent tremor, dizziness, ataxia, asthenia, headache abdominal pain, GI distress, and alopecia. Rarely can cause liver or pancreas dysfunction/failure. Labs in 1 week. [facility], stop today. Past: Seroquel Past trials: Seroquel- headache at higher doses. Abilify- just stopped working. Retried Abilify and felt shaky. Risperdal- SE not tolerable. Topamax- headache, slurrred words per client- hx of doing well on Topamax. Client reports SI on lamotrigine. Discussed [facility] 01/15/2025 Bipolar affective disorder (ICD-10 - F31.9) [...] irritability with Depakote. [facility] has been completed. 04/15/2025 Cannabis use disorder (ICD-10 - F12.90) 11/11/2024 Bipolar affective disorder (ICD-10 - F31.9) 10/21/2024 Bipolar affective disorder (ICD-10 - F31.9) [...] Discussed [facility] 10/15/2024 Anxiety (ICD-10 - F41.9) 10/01/2024 Bipolar affective disorder (ICD-10 - F31.9) Will request hospital records, decreasing dose and monitoring, get lab Sunday morning to keep close eye on levels. Labs to [facility] Past: Seroquel Past trials: Seroquel- headache at higher doses. Abilify- just stopped working. Retried Abilify and felt shaky. Risperdal- SE not tolerable. Topamax- headache, slurrred words per client- hx of doing well on Topamax. Client reports SI on lamotrigine. Discussed [facility] 08/13/2024 Bipolar affective disorder (ICD-10 - F31.9) Start lithium. Take as prescribed. Discussed uses for bipolar depression with SI. Reviewed risks associated like toxicity and water intake, cardiovascular changes. Educated on monitoring weight, kidney function and therapeutic blood trough levels. [facility]: Have lithium level drawn after taking [...] Topamax. Client reports SI on lamotrigine. Discussed [facility] 06/02/2024 Bipolar affective disorder (ICD-10 - F31.9) [place] agreement to continue current regimen Past: Seroquel Past trials: Seroquel- headache at higher doses. Abilify- just stopped working. Retried Abilify and felt shaky. Risperdal- SE not tolerable. Topamax- headache, slurrred words per client- hx of doing well on Topamax. Client reports SI on lamotrigine. Discussed [facility] 05/19/2024 Bipolar affective disorder (ICD-10 - F31.9) 05/14/2024 Generalized anxiety disorder (ICD-10 - F41.1) Past trials: hydroxyzine, buspar, fluoxetin, celexa, venlafaxine, propranolol Clonazepam on for rare, PRN use only. Discussed controlled sub with patient. PDMP checked without concerns 04/14/2025 Anxiety (ICD-10 - F41.9) 04/14/2025 Medication monitoring encounter (ICD-10 - Z51.81) 12/25/2024 Bipolar affective disorder (ICD-10 - F31.9) [...] 12/07/2024 Generalized anxiety disorder (ICD-10 - F41.1) 12/25/2024 Generalized anxiety disorder (ICD-10 - F41.1) Past trials: hydroxyzine, buspar, fluoxetin, celexa, venlafaxine, propranolol Discussed controlled sub with patient. DO NOT DRINK ETOH WITH THESE MEDICATIONS- client v/u and states she will not be drinking. Low efficacy with Valium and Ativan; continue with Klonopin at this time. PDMP checked without concerns 06/02/2024 Generalized anxiety [...] reports SI on lamotrigine. Ordered [facility] testing. 01/15/2025 Generalized anxiety disorder (ICD-10 - F41.1) Past trials: hydroxyzine, buspar, fluoxetin, celexa, venlafaxine, propranolol Discussed controlled sub with patient. DO NOT DRINK ETOH WITH THESE MEDICATIONS- client v/u and states she will not be drinking. Low efficacy with Valium and Ativan; continue with Klonopin at this time. PDMP checked without concerns 08/13/2024 Generalized anxiety [...] ETOH use Sat. PDMP checked without concerns 10/21/2024 Generalized anxiety [...] 12/25/2024 Medication monitoring encounter (ICD-10 - Z51.81) 05/14/2024 Medication monitoring encounter (ICD-10 - Z51.81) 06/02/2024 Medication monitoring encounter (ICD-10 - Z51.81) 08/13/2024 Medication monitoring encounter (ICD-10 - Z51.81) 10/01/2024 Medication monitoring encounter (ICD-10 - Z51.81) 01/15/2025 Medication monitoring encounter (ICD-10 - Z51.81) 10/21/2024 Medication monitoring encounter (ICD-10 - Z51.81) 11/04/2024 Medication monitoring encounter (ICD-10 - Z51.81) 10/07/2024 Medication monitoring encounter (ICD-10 - Z51.81) 09/03/2024 Medication monitoring encounter (ICD-10 - Z51.81) 06/02/2024 Other Reasons, potential benefits, potential risks, [...] May also contact the 24-hour crisis hotline ([facility]), refer to the closest emergency room or [...] May also contact the 24-hour crisis hotline ([facility]), refer to the closest emergency room or [...] May also contact the 24-hour crisis hotline ([facility]), refer to the closest emergency room or [...] May also contact the 24-hour crisis hotline ([facility]), refer to the closest emergency room or [...] treatment plan and follow up. 10/15/2024 Other Director Financial Services met with client via telehealth to discuss referral. The information writer encouraged and engaged in critical thinking [...] May also contact the 24-hour crisis hotline ([facility]), refer to the closest emergency room or [...] May also contact the 24-hour crisis hotline ([facility]), refer to the closest emergency room or [...] May also contact the 24-hour crisis hotline ([facility]), refer to the closest emergency room or [...] Name Order Date Comprehensive Drug Analysis, Urine 04/15 Insurance Providers Payer Name Payer Address Payer Phone Subscriber Number Group Number Insured Name Patient Relationship to Insured Coverage Start Date Coverage End Date [email or web address] [address] [place] [phone] [id number] Elizabeth Lim Self - patient is the insured [facility] [address] [place] [phone] [id number] Elizabeth Lim Self - patient is the insured 6 1 [facility] [address] [place] [phone] [id number] Elizabeth Lim Self - patient is the insured 2 1 [facility] [address] [place] [phone] [id number] Elizabeth Lim Self - patient is the insured 2 [employer] [facility] [address] [place] [phone] [id number] Elizabeth Lim Self - patient is the insured 5 Medical (General) History Medical History History ICD Code Anxiety Bipolar disorder Major depressive disorder, single episod e, unspecified F32.9 Seizures R56.9 Surgical History Surgery Date(Month/Year) 01/2017 appendectomy Hospitalization History Reason Date(Month/Year) Seizure hospitalization at [facility] 10/05/24
--- OUTSIDE RECORDS SUMMARY | 2025-04-24 09:31 | XMS_ITS | Clinical Summary ---
Author Organization [facility] Address [address] [place] [address] Care Team Providers Care Housekeeping/Laundry Name Role Phone Unknown, Notinfile Primary Care [...] 06/02/2024 Assessment & Plan (06/02/2024 11:51 AM STATION INSTALLATION SUPERVISOR): No papilledema on multiple exams, HVF and [...] on file Legal Sex Female 4:24 AM STATION INSTALLATION SUPERVISOR Gender Identity Not on file Sexual Orientation Not on file Obstetrics History Last Filed Vital Signs Vital Sign Reading Time Taken Comments Blood Pressure 128/95 05/28/2024 3:31 PM STATION INSTALLATION SUPERVISOR Pulse 70 05/28/2024 3:31 PM STATION INSTALLATION SUPERVISOR Temperature 36.7 C (98.1 F) 05/28/2024 11:51 AM STATION INSTALLATION SUPERVISOR Respiratory Rate 16 05/28/2024 3:31 PM STATION INSTALLATION SUPERVISOR Oxygen Saturation 99% 05/28/2024 3:31 PM STATION INSTALLATION SUPERVISOR Inhaled Oxygen Concentration - - Weight 104.3 kg (229 lb 15 oz) 05/28/2024 11:51 AM STATION INSTALLATION SUPERVISOR Height 165.1 cm (5' 5) 05/28/2024 11:51 AM STATION INSTALLATION SUPERVISOR Body Mass Index 38.26 05/28/2024 11:51 AM STATION INSTALLATION SUPERVISOR Plan of Treatment Health Maintenance Due Date [...] Vaccines Completed 01/27/2009, 06/02/1999 Insurance Care Teams Housekeeping/Laundry Relationship Specialty Start Date End Date Unknown, Notinfile PCP - General 05/22/24
--- OUTSIDE RECORDS SUMMARY | 2025-04-24 09:31 | XMS_ITS | Clinical Summary ---
Author Organization [facility] Address [address] [place] [address] [place] [address] Care Team Providers Care Detective Private Eye Name Role Phone Unavailable Primary Care Provider Unavailabl e Source Comments [facility],non-owned Affiliates and Associated Physician Practices is amultiple site organization consisting of ambulatory clinics and hospital sitesin [place] and [place]. This disclosure is being madepursuant to the Care Everywhere program and may not contain all information available regarding this patient. 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 Eosinophil % 1.0 0.0 - 7.0 % 02/02/2025 8:46 PM CDT [facility] Basophil % 0.2 0.0 - 1.6 % 02/02/2025 8:46 PM CDT [facility] Immature Granulocytes % 0.2 0.0 - 1.0 % 02/02/2025 8:46 PM CDT [facility] Neutrophil Absolute 5.66 1.60 - 7.50 x10E9/L 02/02/2025 8:46 PM CDT [facility] Lymphocyte Absolute 2.47 1.00 - 4.40 x10E9/L 02/02/2025 8:46 PM CDT [facility] Monocyte Absolute 0.57 0.15 - 1.00 x10E9/L 02/02/2025 8:46 PM CDT [facility] Eosinophil Absolute 0.09 0.00 - 0.60 x10E9/L 02/02/2025 8:46 PM CDT [facility] Basophil Absolute 0.02 0.00 - 0.13 x10E9/L 02/02/2025 8:46 PM CDT [facility] Blood BLOOD SPECIMEN / Unknown Venipuncture / Unknown 02/02/2025 8:41 PM CDT 02/02/2025 8:44 PM CDT Eder Pennington PA-C LAB - HEMATOLOGY ORDERAB LES Final Result [facility] [address] [place] [address] * (ABNORMAL) COMPREHENSIVE METABOLIC PANEL (02/02/2025 8:41 PM CDT) [facility] Glucose 99 70 - 99 mg/dL 02/02/2025 9:03 PM CDT [facility] Sodium 139 136 - 145 mmol/L 02/02/2025 9:03 PM CDT [facility] Potassium 3.3(L) 3.5 - 5.1 mmol/L 02/02/2025 9:03 PM CDT [facility] Chloride 109(H) 98 - 107 mmol/L 02/02/2025 9:03 PM [facility] CO2 19(L) 22 - 29 mmol/L 02/02/2025 9:03 PM [facility] Calcium 9.0 8.4 - 10.4 mg/dL 02/02/2025 9:03 PM [facility] Anion Gap 11 6 - 16 mmol/L 02/02/2025 9:03 PM [facility] BUN 12 5.3 - 18.7 mg/dL 02/02/2025 9:03 PM [facility] Creatinine 0.75 0.57 - 1.11 mg/dL 02/02/2025 9:03 PM [facility] Alkaline Phosphatase 55 40 - 150 U/L 02/02/2025 9:03 PM [facility] ALT 29 6 - 57 U/L 02/02/2025 9:03 PM [facility] AST 22 10 - 48 U/L 02/02/2025 9:03 PM [facility] Protein Total 7.1 6.4 - 8.3 gm/dL 02/02/2025 9:03 PM [facility] Albumin 4.4 3.1 - 4.5 gm/dL 02/02/2025 9:03 PM [facility] Bilirubin Total 1.0 0.2 - 1.2 mg/dL 02/02/2025 9:03 PM [facility] eGFR by CKD-EPI >90 >=90 mL/min/1.7 3 m2 02/02/2025 9:03 PM [facility] Comment:Estimated Glomerular Filtration Rate (eGFR) calculated using the CKD-EPI Creatinine Equation (2020), per the National Kidney Foundation and [place] Society of Nephrology recommendations. Blood BLOOD SPECIMEN / Unknown Venipuncture / Unknown 02/02/2025 8:41 PM CDT 02/02/2025 8:44 PM CDT us Eder Pennington PA-C LAB - CHEMISTRY ORDERABL ES Final Result [facility] [address] [facility] [place] [address] * HCG BLOOD QUALITATIVE (02/02/2025 8:41 PM CDT) HCG Qual Serum Negative Negative 02/02/2025 8:58 PM CDT [facility] Blood BLOOD SPECIMEN / Unknown Venipuncture / Unknown 02/02/2025 8:41 PM CDT 02/02/2025 8:44 PM CDT Narrative [facility] - 02/02/2025 8:58 PM CDT Specimens containing human anti-mouse antibodies may exhibit false positive or false negative results. If qualitative interpretation is inconsistent with clinical evaluation, consider confirmation by an alternative hCG method. Eder Pennington PA-C LAB - CHEMISTRY ORDERABL ES Final Result [facility] [address] [place] [address] from Last 3 Months Insurance [facility]
[2025-04-24 09:39] LABS: EDSTREPNEGPOS1 Negative (Negative)
== END 2025-04-24 09:42 | disposition home or self-care (01) ==
PROVIDERS: Emergency Provider Nurse Practitioner Family
DX: B34.9 Viral infection, unspecified (principal); F41.9 Anxiety disorder, unspecified; F17.290 Nicotine dependence, other tobacco product, uncomplicated
CPT/HCPCS: 87081; 87880; 99213; G0463

== ENCOUNTER 2025-05-27 08:59 | Emergency (ER) | payer MEDICAID, SELFPAY ==
--- OUTSIDE RECORDS SUMMARY | 2024-12-17 02:40 | XMS_ITS ---
Author Organization [facility] Address [address] [place] [address] Care Team Providers Care Saw Runner Name Role Phone Sally Matamoros Primary Care Provider Soha Coles Unavailable [phone] REASON FOR VISIT 3 Week F/U Medications [...] Active Encounters Encounter Location Date Provider Diagnosis [address] [address] 12/17/2024 Sally Matamoros Plan Of Treatment No Information Progress Notes * Elizabeth LIMDOB:1995 (29 yo F)Acc No.[id number]:12/17/2024 UNLOCKED PROGRESS NOTE Patient: Elizabeth PEDERSON Provider: Ana Matamoros, MSN, HOME HEALTH CLINICAL SUPERVISOR, AUTOMATION TEST DEVELOPER-C :1995 A ge:29 Y S ex:Female Date:12/17/2024 Address:[address] [place], [place] [id number] Subjective: * Chief Complaints: * 1 . [...] Treatment: * * Electronic signature of Remi Matamoros , [id number] on 05/27/2025 at 09:35 AM BRUISE TRIMMER Sign off status: Pending * Provider: Ana Matamoros, MSN, HOME HEALTH CLINICAL SUPERVISOR, AUTOMATION TEST DEVELOPER-C Date: 0 12/17/2024 Generated for Jameson flynn/Eileen/eTransmitting on: 1 07/27/2024 09:35 AM BRUISE TRIMMER
--- OUTSIDE RECORDS SUMMARY | 2025-04-15 03:00 | XMS_ITS ---
Author Organization [facility] Address [address] [place] [address] Care Team Providers Care Cdl Company Driver Name Role Phone Sally Matamoros Primary Care Provider Soha Coles Unavailable [phone] Results Component Value Reference Range Notes 14 [...] Active Encounters Encounter Location Date Provider Diagnosis [place] [address] [address] [place] [address] 04/15/2025 Sally Matamoros Cannabis use disorder F12.90 Assessments Encounter Date Diagnosis (ICD Code) Assessment Notes Treatment Notes Treatment Clinical Notes Section Notes 04/15/2025 Cannabis use disorder (ICD-10 - F12.90) Plan Of Treatment No Information Progress Notes * Elizabeth LIMDOB:1995 (29 yo F)Acc No.[id number]:04/15/2025 UNLOCKED PROGRESS NOTE Patient: Elizabeth PEDERSON Provider: Ana Matamoros, MSN, HEALTHCARE ADMINISTRATIVE ASSISTANT, ASBESTOS TEXTILE SUPERVISOR-C :1995 A ge:29 Y S ex:Female Date:04/15/2025 Address:[address] [place], [place] [id number] Subjective: * Chief Complaints: * 1 . [...] * Electronic signature of Remi Matamoros , [id number] on 05/27/2025 at 09:36 AM AMBULANCE DISPATCHER Sign off status: Pending * Provider: Ana Matamoros, MSN, HEALTHCARE ADMINISTRATIVE ASSISTANT, ASBESTOS TEXTILE SUPERVISOR-C Date: 1 Generated for Jameson flynn/Eileen/Lee on: 07/27/2024 09:36 AM AMBULANCE DISPATCHER
[2025-05-27 09:08] VITALS: BP 100/71; PULSE 84; RESP 18; TEMP 36.1; O2SAT 100
--- OUTSIDE RECORDS SUMMARY | 2025-05-27 09:36 | XMS_ITS | Clinical Summary ---
Author Organization [facility] Address [address] [place] [address] Care Team Providers Care Guard Captain Name Role Phone Unknown, Notinfile Primary Care [...] 06/02/2024 Assessment & Plan (06/02/2024 11:51 AM ELECTROENCEPHALOGRAPHIC TECHNOLOGIST): No papilledema on multiple exams, HVF and OCT without concerning findings. Okay to resume eye care locally or call if any visual changes. 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 Gender Identity Not on file Sexual Orientation Not on file Last Filed Vital Signs Vital Sign Reading Time Taken Comments Blood Pressure 128/95 05/28/2024 3:31 PM ELECTROENCEPHALOGRAPHIC TECHNOLOGIST Pulse 70 05/28/2024 3:31 PM ELECTROENCEPHALOGRAPHIC TECHNOLOGIST Temperature 36.7 C (98.1 F) 05/28/2024 11:51 AM ELECTROENCEPHALOGRAPHIC TECHNOLOGIST Respiratory Rate 16 05/28/2024 3:31 PM ELECTROENCEPHALOGRAPHIC TECHNOLOGIST Oxygen Saturation 99% 05/28/2024 3:31 PM ELECTROENCEPHALOGRAPHIC TECHNOLOGIST Inhaled Oxygen Concentration - - Weight 104.3 kg (229 lb 15 oz) 05/28/2024 11:51 AM ELECTROENCEPHALOGRAPHIC TECHNOLOGIST Height 165.1 cm (5' 5) 05/28/2024 11:51 AM ELECTROENCEPHALOGRAPHIC TECHNOLOGIST Body Mass Index 38.26 05/28/2024 11:51 AM ELECTROENCEPHALOGRAPHIC TECHNOLOGIST Plan of Treatment Health Maintenance Due Date [...] 03/04/2001 Varicella Vaccines Completed 01/27/2009, 06/02/1999 Insurance [facility] [employer] Care Teams Guard Captain Relationship Specialty Start Date End Date Unknown, Notinfile PCP - General 05/22/24
--- OUTSIDE RECORDS SUMMARY | 2025-05-27 09:36 | XMS_ITS | Patient Health Record ---
Author Organization [facility] Address [address] [place] [address] Care Team Providers Care Corpsman Name Role Phone Saturnino, Sally Primary Care Provider Soha Coles Unavailable [phone] Yanira Pineda Unavailable Latisha Palacios Unavailable [phone] Allergies Allergen (clinical drug ingredient) Drug/Non Drug [...] neg BUP neg TCA neg FTY neg Comprehensive Drug Analysis, Urine Reviewed date:04/27/2025 03:44:13 PM Interpretation:Normal Performing Lab:[facility], [address] [facility], Phone - [phone], Director - PhrmDRad Notes/Report: Summary Report (Summary) FINAL COMPREHENSIVE DRUG ANALYSIS,UR Test Result Flag Units Drug Present 7-aminoclonazepam 119 ng/mg creat 7-aminoclonazepam is an expected metabolite of clonazepam. Source of clonazepam is a scheduled prescription medication. Carboxy-THC 368 ng/mg creat Carboxy-THC is a metabolite of tetrahydrocannabinol (THC). Source of THC is most commonly herbal marijuana or marijuana-based products, but THC is also present in a scheduled prescription medication. Trace amounts of THC can be present in hemp and cannabidiol (CBD) products. This test is not intended to distinguish between dhyan-7-exqnrddlrkyfekhpcwon, the predominant form of THC in most herbal or marijuana-based products, and zuonm-4-vrmmeehxhghxlqgnghpu. Topiramate PRESENT Acetaminophen PRESENT Test Result Flag Units Ref Range Creatinine 53 mg/dL >=20 For clinical consultation, please call . PDF . PDF Report Reviewed date:04/27/2025 03:44:13 PM Interpretation: Performing Lab:[facility], [address] [place] [address], Phone - [phone], Director - Davis Notes/Report: PDF Report1 LCLS Reason For Referral Reason Therapy, counseling Diagnosis 1 Bipolar affective di sorder (F31.9) Diagnosis 2 Generalized anxiety disorder (F41.1) Referral Organization [facility] Referring Provider First Name Sally Referring Provider Last Name Saturnino Referring Provider Speciality Psychiatry Referred Provider Specialty Behavioral [facility] General Notes Sally Matamoros A 11:06:43 AM > Client with high levels of depression and anxiety. Reports passive SI, denies any plan or intent, but reports wanting to start therapy and have further support as soon as she is able. Please refer. Thank you. Clinical Notes Ahsan Pineda 08/14/2024 02:04:11 PM > Card Tender spoke with client who states she has an appointment scheduled next sunday. Card Tender will fidelina referral as addressed. Referral Priority Routine Medications Medication SIG (Take, Route, Frequency, Duration) Notes Start Date End Date Status Lisinopril 20 MG 1 tablet Orally Once a day Active Qulipta HAS NOT STARTED YET WORKING ON PA WITH PCP Active Topiramate 25 MG 1 capsule Orally daily; Duration: 30 days (75mg total) 05/25/2025 Active clonazePAM 0.5 MG 1 tablet Orally twice a day; Duration: 30 days As needed 05/25/2025 Active Topiramate 50 MG 1 capsule Orally daily; Duration: 30 days Active Social History Tobacco Use: Social History Observation Description Date Details (start date - stop date) Never Smoker NA - NA Dont use, Tobacco [...] 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 Stress is when someone feels tense, nervous, anxious, or can\t sleep at night because their mind is troubled Somewhat In the past year have you sp ent more than 2 nights in a row in a intermediate, mcc, intermediate center, or juvenile correctional facility? No Do you feel physically and e motionally safe where you currently live? Yes In the past year, have you b een afraid of your partner or ex-partner? No PRAPARE Score: 6 Tobacco Control (Standard) Question Answer Notes Tobacco use: Nonsmoker Problems Problem Type SNOMED Code ICD Code Onset Dates Problem Status W/U Status Risk Notes Problem Morbid obesity (disorder) (972981404) Morbid (severe) obesity due to excess calories (E66.01) Active confirmed Problem Generalized anxiety disorder (87403772) Generalized anxiety disorder (F41.1) Active confirmed Problem Tobacco dependence (71236699) Tobacco dependence (F17.200) Active confirmed Problem Anxiety (75550147) Anxiety (F41.9) Active confirmed Problem Bipolar affective disorder (65932965) Bipolar affective disorder (F31.9) Active confirmed Problem Depressive disorder (34382727) Depressive disorder (F32.9) Active confirmed Problem Posttraumatic stress disorder (21091483) Chronic post-traumatic stress disorder (PTSD) (F43.12) Active confirmed Problem Overweight (983290434) Over weight (E66.3) Active confirmed Problem Obesity (328118878) Obesity (BMI 30-39.9) (E66.9) Active confirmed Problem Sleep disturbance (72856097) Sleep disturbance, unspecified (G47.9) Active confirmed Problem Body mass index 40+ - severely obese (111122456) Body mass index (BMI) of 40.0-44.9 in adult (Z68.41) Active confirmed Vital Signs Heart Rate 99 /min 05/25/2025 Temperature 97.9 degrees Fahrenheit 05/25/2025 Respiratory Rate 16 /min 05/25/2025 Oximetry 100 % 05/25/2025 Blood pressure diastolic 84 mm Hg 05/25/2025 Height 66 inches in 05/25/2025 Blood pressure systolic 122 mm Hg 05/25/2025 Weight 200 lbs lbs 05/25/2025 BMI 32.28 kg/m2 05/25/2025 Encounters Encounter Location Date Provider Diagnosis [facility] [address] [place] [address] 04/15/2025 Sally Matamoros Cannabis use disorder F12.[address] [place] [address] 06/02/2024 Sally Matamoros Bipolar affective disorder F31.9 ; Generalized anxiety disorder F41.1 ; Chronic post-traumatic stress disorder (PTSD) F43.12 ; Sleep disturbance, unspecified G47.9 ; Cannabis use disorder F12.90 and Medication monitoring encounter Z51.[address] [place] [address] 08/13/2024 Sally Matamoros Bipolar affective disorder F31.9 ; Generalized anxiety disorder F41.1 ; Chronic post-traumatic stress disorder (PTSD) F43.12 ; Sleep disturbance, unspecified G47.9 ; Cannabis use disorder F12.90 and Medication monitoring encounter Z51.[address] [address] 09/03/2024 Sally Matamoros Bipolar affective disorder F31.9 ; Generalized anxiety disorder F41.1 ; Chronic post-traumatic stress disorder (PTSD) F43.12 ; Sleep disturbance, unspecified G47.9 ; Cannabis use disorder F12.90 and Medication monitoring encounter Z51.[address] [address] 10/01/2024 Sally Matamoros Bipolar affective disorder F31.9 ; Generalized anxiety disorder F41.1 ; Chronic post-traumatic stress disorder (PTSD) F43.12 ; Sleep disturbance, unspecified G47.9 ; Cannabis use disorder F12.90 and Medication monitoring encounter Z51.81 [facility] [address] [place] [address] 10/07/2024 Sally Matamoros Bipolar affective disorder F31.9 ; Generalized anxiety disorder F41.1 ; Chronic post-traumatic stress disorder (PTSD) F43.12 ; Sleep disturbance, unspecified G47.9 ; Cannabis use disorder F12.90 and Medication monitoring encounter Z51.[address] [place] [address] 10/15/2024 Latisha Palacios Anxiety F41.9 [facility] [address] [place] [address] 10/21/2024 Sally Matamoros Bipolar affective disorder F31.9 ; Generalized anxiety disorder F41.1 ; Chronic post-traumatic stress disorder (PTSD) F43.12 ; Sleep disturbance, unspecified G47.9 ; Cannabis use disorder F12.90 and Medication monitoring encounter Z51.81 [address] [place] [address] 11/04/2024 Sally Matamoros Bipolar affective disorder F31.9 ; Generalized anxiety disorder F41.1 ; Chronic post-traumatic stress disorder (PTSD) F43.12 ; Sleep disturbance, unspecified G47.9 ; Cannabis use disorder F12.90 and Medication monitoring encounter Z51.[address] [facility] [place] [address] 12/25/2024 Sally Matamoros Bipolar affective disorder F31.9 ; Generalized anxiety disorder F41.1 ; Chronic post-traumatic stress disorder (PTSD) F43.12 ; Sleep disturbance, unspecified G47.9 ; Cannabis use disorder F12.90 and Medication monitoring encounter Z51.[address] [place] [address] 01/15/2025 Sally Matamoros Bipolar affective disorder F31.9 ; Generalized anxiety disorder F41.1 ; Chronic post-traumatic stress disorder (PTSD) F43.12 ; Sleep disturbance, unspecified G47.9 ; Cannabis use disorder F12.90 and Medication monitoring encounter Z51.81 [address] [place] [address] 05/12/2025 Sally Matamoros Over weight E66.[address] [place] [address] 05/25/2025 Sally Matamoros Bipolar affective disorder F31.9 ; Generalized anxiety disorder F41.1 ; Chronic post-traumatic stress disorder (PTSD) F43.12 ; Sleep disturbance, unspecified G47.9 ; Cannabis use disorder F12.90 ; Over weight E66.3 and Medication monitoring encounter Z51.81 [facility] [address] [place] [address] 08/13/2024 Sally [facility] [address] [place] [address] 08/14/2024 Sallyadi ManzanoSaturnino [facility] [address] [place] [address] 08/14/2024 Yanira Pineda [address] [place] [address] 08/26/2024 Sally Matamoros Bipolar affective disorder F31.[address] [place] [address] 10/01/2024 Sallyadi ManzanoSaturnino [address] [place] [address] 10/01/2024 Sallyadi ManzanoSaturnino [address] [place] [address] 10/01/2024 [facility] [address] [place] [address] 10/10/2024 Sallyadi Matamoros [address] [place] [address] 10/13/2024 Sallyadi Matamoros [address] [place] [address] 10/15/2024 Sallyadi Matamoros [address] [place] [address] 10/16/[address] [place] [address] 10/30/2024 Sallyadi ManzanoSaturnino [address] [place] [address] 12/18/2024 Sally Matamoros Generalized anxiety disorder F41.1 [facility] [address] [place] [address] 12/25/[address] [place] [address] 04/14/2025 Sally Matamoros Medication monitoring encounter Z51.81 and Anxiety F41.[address] [place] [address] 04/24/2025 Sally Matamoros Generalized anxiety disorder F41.1 and Bipolar affective disorder F31.[address] [place] [address] 04/27/2025 Sally Matamoros [facility] [address] [place] [address] 05/15/2025 Sally Matamoros [address] [address] 10/17/[address] [address] 11/11/2024 Sally Matamoros Bipolar affective disorder F31.[address] [address] 12/07/2024 Sally Matamoros [address] [place] [address] 12/07/2024 Sally Matamoros Generalized anxiety disorder F41.1 Assessments Encounter Date Diagnosis (ICD Code) Assessment Notes Treatment Notes Treatment Clinical Notes Section Notes 06/02/2024 Bipolar affective disorder (ICD-10 - F31.9) [place] agreement to continue current regimen Past: Seroquel Past trials: Seroquel- headache at higher doses. Abilify- just stopped working. Retried Abilify and felt shaky. Risperdal- SE not tolerable. Topamax- headache, slurrred words per client- hx of doing well on Topamax. Client reports SI on lamotrigine. Discussed [facility] 08/13/2024 Bipolar affective disorder (ICD-10 - F31.9) Start lithium. Take as prescribed. Discussed uses for bipolar depression with SI. Reviewed risks associated like toxicity and water intake, cardiovascular changes. Educated on monitoring weight, kidney function and therapeutic blood trough levels. [facility]: Have lithium level drawn after taking [...] Topamax. Client reports SI on lamotrigine. Discussed Other Machine 08/26/2024 Bipolar affective disorder (ICD-10 - F31.9) 09/03/2024 Bipolar affective disorder (ICD-10 - F31.9) Recent labwork at 0.3 level- Increase lithium. Take as prescribed. Discussed uses for bipolar depression with SI. Reviewed risks associated like toxicity and water intake, cardiovascular changes. Educated on monitoring weight, kidney function and therapeutic blood trough levels. [facility]: Have lithium level drawn after taking [...] Topamax. Client reports SI on lamotrigine. Discussed Other Machine 10/01/2024 Bipolar affective disorder (ICD-10 - F31.9) Will request hospital records, decreasing dose and monitoring, get lab Sunday morning to keep close eye on levels. Labs to [facility] Past: Seroquel Past trials: Seroquel- headache at higher doses. Abilify- just stopped working. Retried Abilify and felt shaky. Risperdal- SE not tolerable. Topamax- headache, slurrred words per client- hx of doing well on Topamax. Client reports SI on lamotrigine. Discussed [facility] 10/07/2024 Bipolar affective disorder (ICD-10 - F31.9) Past: Seroquel Past trials: Seroquel- headache at higher doses. Abilify- just stopped working. Retried Abilify and felt shaky. Risperdal- SE not tolerable. Topamax- headache, slurrred words per client- hx of doing well on Topamax. Client reports SI on lamotrigine. Discussed [facility] 10/15/2024 Anxiety (ICD-10 - F41.9) 10/21/2024 Bipolar [...] or pancreas dysfunction/failure. Labs in 1 week. [facility] weaned, stop today. Past: Seroquel Past trials: Seroquel- headache at higher doses. Abilify- just stopped working. Retried Abilify and felt shaky. Risperdal- SE not tolerable. Topamax- headache, slurrred words per client- hx of doing well on Topamax. Client reports SI on lamotrigine. Discussed [facility] 11/11/2024 Bipolar affective disorder (ICD-10 - F31.9) [...] irritability with Depakote. [facility] has been completed. 04/14/2025 Anxiety (ICD-10 - F41.9) 04/14/2025 Medication monitoring encounter (ICD-10 - Z51.81) 04/15/2025 Cannabis use disorder (ICD-10 - F12.90) 04/24/2025 Generalized anxiety disorder (ICD-10 - F41.1) 05/12/2025 Over weight (ICD-10 - E66.3) 05/25/2025 Bipolar affective disorder (ICD-10 - F31.9) Increased by neuro at previous appt, states doing well/stable, continue at this dose. With anger, discussed increase but monitoring fatigue- will discuss further s/p appt with endocrine. Discussed CBT for PNES (nonepileptic seizures). Past: Seroquel Past trials: Seroquel- headache at higher doses. Abilify- just stopped working. Retried Abilify and felt shaky. Risperdal- SE not tolerable. Topamax- headache, slurrred words per client- hx of doing well on Topamax. Client reports SI on lamotrigine. Increased irritability with Depakote. [facility] has been completed. 05/25/2025 Generalized anxiety disorder (ICD-10 - F41.1) Past trials: hydroxyzine, buspar, fluoxetin, celexa, venlafaxine, propranolol Discussed controlled sub with patient. DO NOT DRINK ETOH WITH THESE MEDICATIONS- client v/u and states she will not be drinking. Low efficacy with Valium and Ativan; continue with Klonopin at this time. PDMP checked without concerns 04/24/2025 Bipolar affective disorder (ICD-10 - F31.9) 01/15/2025 Generalized anxiety disorder (ICD-10 - F41.1) [...] with patient. PDMP checked without concerns 08/13/2024 Chronic post-traumatic stress disorder (PTSD) (ICD-10 [...] disorder (PTSD) (ICD-10 - F43.12) encouraged therapy/counseling 05/25/2025 Chronic post-traumatic stress disorder (PTSD) (ICD-10 - F43.12) encouraged therapy/counseling 01/15/2025 Chronic post-traumatic stress disorder (PTSD) (ICD-10 - F43.12) encouraged therapy/counseling 12/25/2024 Chronic post-traumatic stress disorder (PTSD) (ICD-10 - F43.12) encouraged therapy/counseling 12/25/2024 Sleep disturbance, unspecified (ICD-10 - G47.9) Discouraged caffeine intake. 01/15/2025 Sleep disturbance, unspecified (ICD-10 - G47.9) Discouraged caffeine intake. Trazodone with night-terrors 05/25/2025 Sleep disturbance, unspecified (ICD-10 - G47.9) Discouraged [...] (ICD-10 - G47.9) Discouraged caffeine intake. 08/13/2024 Cannabis use disorder (ICD-10 - F12.90) [...] or cause adverse reactions. Patient voiced understanding. 05/25/2025 Cannabis use disorder (ICD-10 - F12.90) Discussed [...] 01/15/2025 Medication monitoring encounter (ICD-10 - Z51.81) 05/25/2025 Over weight (ICD-10 - E66.3) 11/04/2024 Medication monitoring encounter (ICD-10 - Z51.81) 10/21/2024 Medication monitoring encounter (ICD-10 - Z51.81) 10/01/2024 Medication monitoring encounter (ICD-10 - Z51.81) 10/07/2024 Medication monitoring encounter (ICD-10 - Z51.81) 09/03/2024 Medication monitoring encounter (ICD-10 - Z51.81) 06/02/2024 Medication monitoring encounter (ICD-10 - Z51.81) 08/13/2024 Medication monitoring encounter (ICD-10 - Z51.81) 05/25/2025 Medication monitoring encounter (ICD-10 - Z51.81) 06/02/2024 [...] treatment plan and follow up. 10/15/2024 Other Card Tender met with client via telehealth to discuss referral. The senior technical writer encouraged and engaged in critical [...] assess appearance, affect, AIMS, or vital signs. 05/25/2025 Other Reasons, potential benefits, potential risks, interactions [...] of education, treatment plan and follow up. Plan Of Treatment No Information Insurance Providers Payer Name Payer Address Payer Phone Subscriber Number Group Number Insured Name Patient Relationship to Insured Coverage Start Date Coverage End Date [address] [address] [id number] Elizabeth Lim Self - patient is the insured 2 5 MED[place] [address] [place] [address] [id number] Elizabeth Lim Self - patient is the insured 5 [facility] Att[employer] Claims Department [address] [place] [address] [phone] [id number] Elizabeth Lim Self - patient is the insured 6 1 [facility] [address] [place] [address] [phone] [id number] Elizabeth Lim Self - patient is the insured 2 1 [employer] [facility] [address] [place] [phone] [id number] CastilloaishaElizabeth dickey Self - patient is the insured 2 5 [employer] [facility] [address] [place] [address] [id number] CastilloaishaElizabeth dickey Self - patient is the insured 5 5 Medical (General) History Medical History History ICD Code Anxiety Bipolar disorder Major depressive disorder, single episod e, unspecified F32.9 Seizures R56.9 Surgical History Surgery Date(Month/Year) 01/2017 appendectomy Hospitalization History Reason Date(Month/Year) Seizure hospitalization at [facility] 10/05/24
--- OUTSIDE RECORDS SUMMARY | 2025-05-27 09:36 | XMS_ITS | Clinical Summary ---
Author Organization [facility] Address [address] [place] [address] Care Team Providers Care Library Clerical Assistant Name Role Phone Unavailable Primary Care Provider Unavailabl e Source Comments [facility],non-owned Affiliates and Associated Physician Practices is amultiple site organization consisting of ambulatory clinics and hospital sitesin [place], [place], [place] and [place]. This disclosure is being madepursuant to the Care Everywhere program and may not contain all information available regarding this patient. 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
--- NOTE | 2025-05-27 10:10 | ED_ITS ---
HPI - URI/Sore Throat General Chief Complaint: Upper Respiratory Infection Stated Complaint: Cough Time Seen by Provider: 05/27/25 09:30 Source: patient and RN notes reviewed Mode of arrival: ambulatory Limitations: no limitations History of Present Illness HPI Narrative: 29-year-old female presents Express Care complaining of cough, congestion, chest congestion for approximally 1 week. Patient says symptoms are getting better. Patient says the cough is worse at night when she is laying flat. Patient reports a mucopurulent cough. Patient denies any chest pain, difficulty breathing, nausea vomiting, diarrhea, fevers, body aches, chills, or any other symptoms. Patient taking DayQuil NyQuil thigh relief. Patient reports she vapes. Related Data Home Medications ?Medication ?Instructions ?Recorded ?Confirmed ?Last Taken ?Type clonazepam 0.5 mg tablet 0.5 mg DAILY 06/09/22 Unknown History lisinopril 10 mg tablet mg 03/19/25 Unknown History topiramate 50 mg sprinkle capsule mg PO 03/19/25 Unkn own History Allergies Allergy/AdvReac Type Severity Reaction Status Date / Time No Known Allergies Allergy Verified 05/27/25 09:10 Review of Systems Review of Systems: CONSTITUTIONAL: Denies fever, chills, or sweats. EYES: Denies visual changes, redness, or discharge. ENT: Denies rhinorrhea, sore throat, or otalgia. Positive for congestion. CARDIOVASCULAR: Denies chest pain, palpitations, or edema. RESPIRATORY: Positive for cough and chest congestion. Negative for wheezing or dyspnea. GASTROINTESTINAL: Denies abdominal pain, nausea, vomiting, or diarrhea. GENITOURINARY: Denies dysuria or hematuria. SKIN: Denies rash or itching. MUSCULOSKELETAL: Denies back pain, joint pain, or myalgia. NEUROLOGIC: Denies headache, numbness, or weakness. PSYCHIATRIC: Denies anxiety or depression. All other systems reviewed are negative, except as documented in HPI. [facility] Past Medical History Medical History Anxiety Pseudoseizure Surgical History Surgical History History of appendectomy Comments At the time of my signature, I reviewed and agree with the nursing past medical, surgical, social, and family history. There is no relevant family history pertinent to the patient complaint. Exam Narrative: GENERAL: This is a well-nourished, well-developed adult, in no apparent distress. They are non ill-appearing, nontoxic appearing. HEAD: normocephalic, atraumatic. EYES: Sclera clear/white. Conjunctiva normal. Vision is grossly intact. Extraocular movements intact EARS: External ears normal, auditory canals clear and without drainage, TMs normal without perforation. Hearing grossly intact. NOSE: External nose normal with no obvious nasal discharge, nasal turbinates erythemic without swelling, no rhinorrhea. THROAT: Mucous membranes moist, posterior pharynx erythematous. Uvula midline. Postnasal drip present. NECK: Neck supple, non-tender without lymphadenopathy, masses or thyromegaly. CARDIOVASCULAR: Regular rate and rhythm without murmurs, gallops, or rubs. RESPIRATORY: Clear to auscultation. Breath sounds equal bilaterally. No wheezes, rales, or rhonchi. SKIN: warm, Dry, intact with no suspicious lesions or rash, good texture and turgor. NEURO: awake, alert, and oriented to person, place and time. There were no obvious focal neurologic abnormalities. EXTREMITIES: No joint tenderness, effusion, or edema noted. BACK: Nontender without deformity. No CVA tenderness. Course Course Emergency Course: Portions of this record may have been created with voice recognition software Level of Care: Express Care Visit Vital Signs Vital signs: Vital Signs Temperature 97.0 F L 05/27/25 09:08 Pulse Rate 84 05/27/25 09:08 Respiratory Rate 18 05/27/25 09:08 Blood Pressure 100/71 05/27/25 09:08 Pulse Oximetry 100 05/27/25 09:08 Oxygen Delivery Room Air 05/27/25 09:08 Temperature 97.0 F L 05/27/25 09:08 Pulse Rate 84 05/27/25 09:08 Respiratory Rate 18 05/27/25 09:08 Blood Pressure 100/71 05/27/25 09:08 Pulse Oximetry 100 05/27/25 09:08 Oxygen Delivery Room Air 05/27/25 09:08 Reviewed MDM - URI/Sore Throat MDM Narrative Medical decision making narrative: Patient likely has bronchitis. Given length of symptoms and vaping history will give her azithromycin and prednisone. Will also give her albuterol inhaler as needed for wheezing or shortness of breath along with benzonatate tablets for cough. Discussed physical exam findings. Advised supportive measures and signs/symptoms to go to the ER. Pt is appropriate for outpt treatment and f/u. Differential Diagnosis Differential diagnosis: Likely upper respiratory infection, sinusitis, viral infection, bronchitis and pharyngitis Lab Data Attestation: I reviewed the patient's lab results. Critical Care Time Critical Care Time Critical Care Time: No Discharge Plan Discharge Clinical Impression: Purulent bronchitis Patient Disposition: Home Condition: Stable Instructions: Antibiotic Form, Acute Bronchitis (ED) Additional Instructions: Take azithromycin as directed. Take prednisone as directed. Take benzonatate tablets as needed for cough. Use albuterol inhaler as needed for wheezing or shortness of breath. Use it with a spacer. Recommend Flonase spray and Zyrtec as needed for congestion. Follow instructions on the labeling. You may take ibuprofen 600 mg to 800 mg every 6-8 hours. Do not exceed more than 800 mg of ibuprofen per dose. Do not exceed more than 3200 mg ibuprofen in a day. You may take up to 1000 mg Tylenol every 6-8 hours. Do not exceed 1000 mg per dose, do exceed more than 4000 mg of Tylenol in a day. Do not take additional Tylenol if you are taking DayQuil and NyQuil as it already contain Tylenol in it. Symptomatic treatment includes: rest, fluids, and increase humidity of the air at home. Follow up with your primary care provider as needed in 1 week Go to the ER for worsening symptoms, difficulty breathing, unable to speak in full sentences, chest pains, vomiting, uncontrolled fevers, or any serious concerns Patient Language: Nepali Prescriptions: New azithromycin 250 mg tablet See Rx Instructions .ROUTE .COMPLEX Qty: 6 0RF Rx Instructions: For 250 mg dose pack: take 500 mg today (day 1), then 250 mg for 4 days (days 2-5) benzonatate 200 mg capsule 200 mg PO BID PRN (Reason: cough) Qty: 20 0RF prednisone 20 mg tablet 40 mg PO DAILY 5 Days Qty: 10 0RF albuterol sulfate [Ventolin HFA] 90 mcg/actuation HFA aerosol inhaler 2 puff inhalation QID PRN (Reason: shortness of breath or wheezing) Qty: 8.5 0RF (DME) Murtaza Aerosol [place] Enhancer Spacer See Rx Instructions .Route Qty: 1 0RF Rx Instructions: As directed No Action lisinopril 10 mg tablet topiramate 50 mg capsule, sprinkle PO clonazepam 0.5 mg tablet 0.5 mg DAILY Follow-up/Referrals: Kandi,Elin Pagan, [employer]ACHINE [employer] [Primary Care Provider, Unknown] Time of Disposition: 09:51
== END 2025-05-27 09:57 | disposition home or self-care (01) ==
DX: J40 Bronchitis, not specified as acute or chronic (principal)
CPT/HCPCS: 99213; G0463

== ENCOUNTER 2025-06-12 09:28 | Emergency (ER) | payer MEDICAID, SELFPAY ==
--- OUTSIDE RECORDS SUMMARY | 2024-12-17 02:40 | XMS_ITS ---
Author Organization [facility] Address [address] [place] [address] Care Team Providers Care Dividend Deposit Voucher Clerk Name Role Phone Sally Matamoros Primary Care Provider Soha Coles Unavailable [phone] REASON FOR VISIT 3 Week F/U Medications Medication SIG (Take, Route, Frequency, Duration) Notes Start Date End Date Status hydroCHLOROthiazide 25 MG 1 tablet in th e morning Orally Once a day Unknown LORazepam 0.5 MG 2-3 tablets Orally per day; Duration: 21 days As needed 11/04/2024 Active Topiramate 25 MG TAKE 1 TABLET BY GAL TH ONCE A DAY FOR 30 DAYS; Duration: 10 days Active Encounters Encounter Location Date Provider Diagnosis [address] [address] 12/17/2024 Sally Matamoros Plan Of Treatment No Information Progress Notes * Elizabeth LIMDOB:1995 (29 yo F)Acc No.[id number]:12/17/2024 UNLOCKED PROGRESS NOTE Patient: Elizabeth PEDERSON Provider: Ana Matamoros, MSN, INSIDE SALES AGENT, CATERING COORDINATOR-C :1995 A ge:29 Y S ex:Female Date:12/17/2024 Address:[facility] Structured Data:Is there a n florecita you would prefer we call you? (Nombre que prefiere usar) : No Subjective: * Chief Complaints: * 1 . 3 Week F/U. * Medical History: * Medications: T aking LORazepam 0.5 MG Tablet 2-3 tablets Orally per day As needed, Taking Topiramate 25 MG Tablet TAKE 1 TABLET BY MOUTH ONCE A DAY FOR 30 DAYS , Unknown hydroCHLOROthiazide 25 MG Tablet 1 tablet in the morning Orally Once a day Objective: * Vitals: Assessment: Plan: * Treatment: * * Electronic signature of Remi Maatmoros , [id number] on 06/12/2025 at 09:32 AM WINE CONSULTANT Sign off status: Pending * Provider: Ana Matamoros, MSN, INSIDE SALES AGENT, CATERING COORDINATOR-C Date: 0 12/17/2024 Generated for Jameson flynn/Eileen/Lee on: 08/12/2024 09:32 AM WINE CONSULTANT
--- OUTSIDE RECORDS SUMMARY | 2025-04-15 03:00 | XMS_ITS ---
Author Organization [facility] Address [address] [place] [address] Care Team Providers Care Inserting Press Operator Name Role Phone Sally Matamoros Primary Care Provider [phone] Soha Coles Unavailable [phone] Results Component Value Reference Range Notes 14 Panel Urine Drug Screen Reviewed date:04/16/2025 10:53:39 AM Interpretation:Abnormal Performing Lab: Notes/Report: Abnormal THC pos KIRT neg MOP (OPI) neg AMP neg MET neg BAR neg BZO neg MDMA neg MTD neg OXY neg PCP neg BUP neg TCA neg FTY neg REASON FOR VISIT UDS Medications Medication SIG (Take, Route, Fr equency, Duration) Notes Start Date End Date Status Topiramate 50 MG 1 capsule Orally lo ly; Duration: 30 days Active clonazePAM 0.5 MG 1 tablet Orally twice a day; Duration: 30 days As needed 01/15/2025 Active Encounters Encounter Location Date Provider Diagnosis [place] [address] [facility] [place] [address] 04/15/2025 Sally Matamoros Cannabis use disorder F12.90 Assessments Encounter Date Diagnosis (ICD Code) Assessment Notes Treatment Notes Treatment Clinical Notes Section Notes 04/15/2025 Cannabis use disorder (ICD-10 - F12.90) Plan Of Treatment No Information Progress Notes * Elizabeth LIMDOB:1995 (29 yo F)Acc No.[id number]:04/15/2025 UNLOCKED PROGRESS NOTE Patient: Elizabeth PEDERSON Provider: Ana Matamoros, MSN, CLEANER HOUSEKEEPING, LAND USE PLANNER-C :1995 A ge:29 Y S ex:Female Date:04/15/2025 Address:[address] [place], [place] [id number] Structured Data:Is there a n florecita you would prefer we call you? (Nombre que prefiere usar) : No Subjective: * Chief Complaints: * 1 . UDS. * Medical History: * Medications: T aking clonazePAM 0.5 MG Tablet 1 tablet Orally twice a day As needed, Taking Topiramate 50 MG Capsule Sprinkle 1 capsule Orally daily Objective: * Vitals: Assessment: * Assessment: 1. C annabis use disorder - F12.90 Plan: * Treatment: Value Reference Range T HC pos * C OC neg * M OP (OPI) neg * A MP neg * M ET neg * B AR neg * B ZO neg * M DMA neg * M TD neg * O XY neg * P CP neg * B UP neg * T CA neg * F TY neg * Procedure Codes: 9 9000 SPECIMEN HANDLING * * Electronic signature of Remi Matamoros , [id number] on 06/12/2025 at 09:32 AM HOLE DIGGER Sign off status: Pending * Provider: JAMI Bales, CLEANER HOUSEKEEPING, LAND USE PLANNER-C Date: Generated for Jameson ng/Maryg/eTransmitting on: 08/12/2024 09:32 AM HOLE DIGGER
--- OUTSIDE RECORDS SUMMARY | 2025-06-12 09:32 | XMS_ITS | Continuity of Care Document ---
Author Organization [facility], [facility] Address [address] [place] [address] Assessment No assessment recorded. Plan of Treatment Reminders Order Date Submit Date Provider Last Modified By Organization Details Last Modified Time Details Appointments None record ed. Lab None record ed. Referral None record ed. Procedures None record ed. Surgeries None record ed. Imaging None record ed. Medication Orders None record ed. Patient TargetsNo targets recorded. Patient InstructionsNo instructions recorded. Reason for Referral None Reported. Results Created Date Observation Date Name Description Value Unit Range Abnormal Flag Note LastModifiedBy Organization Detail LastModifiedTime Result Notes None recorded. Problems Name Problem SNOMED Code Status Onset Date Resolution Date Notes Provider Name and Address Organization Details Recorded Time Hypoglycemi a 042357200 Active 2023 MILLIE Jose [address], [place] [address] [place] [address], [address], [employer] 4 10:43:26 Sacral back pain 79845671 Active 2023 MILLIE Jose [address], [address], [place], [address], [employer] 4 10:45:11 Obesity 623059584 Active 2023 MILLIE Jose [address], [address], [place], [address], [employer] 5 10:55:11 Bipolar disorder 85376228 Active 2023 MILLIE Jose [address], [address], [place], [address], [employer] 4 10:52:07 Low back pain 845515123 Active 2023 MILLIE Jose [address], [address], [place], [address], [facility] [employer] [facility] [employer] 4 12:28:56 Essential hypertensio n 18791650 Active 2023 Lore Cesar RN null, [place] [employer] [facility] [employer] [facility] 5 10:31:50 Migraine with aura 3020062 Active 2023 MILLIE Jose [address], [address], [place], [address], [employer] [facility] [employer] 4 10:28:40 Status migrainosus 945798156 Active 2023 MILLIE Jose [address], [address], [place], [address], [employer] [facility] [employer] 4 10:47:52 Visual disturbance 98726429 Active 2023 MILLIE Jose [address], [address], [place], [address], [employer] [facility] [employer] 4 10:48:10 Mass of body structure 939660772 Active 2024 MILLIE Jose [address], [address], [place], [address], [employer] [facility] [employer] [facility] 5 12:58:13 Ketonuria 164930668 Active 2024 MILLIE Jose [address], [address], [place], [address], [employer] [facility] [employer] [facility] 5 14:26:44 Fever with chills 022372073 Active 2024 MILLIE Jose [address], [address], [place], [address], [facility] [employer] [facility] [employer] [facility] 5 14:27:54 Injury of left leg 5950328399601 9107 Active 2024 Elin Chau, [employer] [address] [facility], [address], [place], [address], [employer] [facility] [employer] [facility] 08:43:58 Increased thirst 951776742 Active 2024 Elin Chau, [employer] [address] [facility], [facility] [address], [place], [address], [employer] [facility] [employer] [facility] 5 10:53:05 Cortisol level below reference range 816315111 Active 2024 Elin Chau, [employer] [address] [facility], [facility] [address], [place], [address], [employer] [facility] [employer] [facility] 17:10:38 Problem Notes None recorded. Procedures Surgical History Date Name Laterality Status Provider Name and Address Organization Details Recorded Time 07/16/19 20 delivery completed Lore Cesar RN [facility] [employer] [facility] 03/19/2024 10:32:57 delivery completed Corby Cesar RN [facility] [employer] [facility] 03/19/2024 10:32:43 Appendectomy completed Lore Cesar RN [facility] [employer] [facility] 03/19/2024 10:33:05 tonsillectomy and adenoidectomy completed Lore Cesar RN [facility] [employer] [facility] 03/19/2024 10:33:19 Imaging Results None recorded. Procedure Notes None recorded. Medical Equipment None Reported. Allergies Allergen ID Allergen Name Allergen Category Reaction Reaction Severity Criticality Documentation Date Start Date Code Code System Note Provider Name and Address Organization Details Recorded Time 48432 Vraylar medicatio n seizure moderate Not available 03/19/2024 44333 61 RxNorm suici catalina Lore Cesar RN [facility], [facility] [employer] [facility] 10:22:59 Medications Name Sig Start Date Stop [...] 24 hr TK 1 C PO QD WF 03/19 completed Not Available Not Available Not Available venlafaxine ER 75 mg capsule,ext ended release 24 hr TK 1 C PO QD WF 03/19 completed Not Available Not Available Not Available lamotrigine 200 mg tablet TAKE 1 TABLET BY MOUTH DAILY 03/19 completed Not Available Not Available Not Available trazodone 50 mg tablet TAKE 1/2 TO 1 TABLET BY MOUTH DAILY AT BEDTIME NEEDED 04/27 completed Not Available Not Available Not Available azithromyci n 250 mg tablet TAKE 2 TABLETS BY MOUTH FOR 1 DAY THEN TAKE 1 TABLET BY MOUTH DAILY FOR 4 DAYS 03/19 completed Not Available Not Available Not Available fluconazole 150 mg tablet TAKE 1 TABLET BY MOUTH EVERY 72 HOURS 04/27 completed Not Available Not Available Not Available benzonatate 200 mg capsule TAKE 1 CAPSULE BY MOUTH THREE TIMES DAILY NEEDED FOR COUGH 04/27 completed Not Available Not Available Not Available sumatriptan 25 mg tablet 11/21 completed Not Available Not Available Not Available lisinopril 20 mg tablet Take 1 tablet every day by oral route as directed for 90 days. 2024 active Not Available Not Available Not Avai lable prednisone 20 mg tablet TAKE 2 TABLETS BY MOUTH EVERY DAY FOR 5 DAYS 04/27 completed Not Available Not Available Not Available clonazepam 0.5 mg tablet TAKE 1 TABLET BY MOUTH TWICE DAILY NEEDED active Not Available Not Available No t Available metronidazo le 250 mg tablet 03/19 [...] oral route as directed for 90 days. 04/27 completed Not Available Not Available Not Available acetaminoph en 300 mg-codeine 30 mg tablet TK 2 TS PO Q 6 H PRF PAIN 03/19 completed Not Available Not Available Not Available prochlorper azine maleate 10 mg tablet TAKE 1 TABLET BY MOUTH TWICE DAILY NEEDED FOR NAUSEA OR VOMITTING 11/21 completed Not Available Not Available Not Available ciprofloxac in 500 mg tablet TAKE ONE T PO BID STARTING SUNDAY MORNING 11-5-16 03/19 completed Not Available Not Available Not [...] TAKE 2 TO 3 TABLETS BY MOUTH NEEDED FOR 7 DAYS 04/27 completed Not Available Not Available Not Available doxycycline monohydrate 100 mg capsule 03/19 completed Not Available Not Available Not Available cephalexin 500 mg capsule TAKE 1 CAPSULE BY MOUTH TWICE A DAY FOR 7 DAYS 04/27 completed Not Available Not Available Not Available [...] completed Not Available Not Available Not Available methylpredn isolone 4 mg tablets in a dose pack FOLLOW PACKAGE DIRECTION S 04/27 completed Not Available Not Available Not Available [...] MOUTH TWICE DAILY DIRECTED X 7 DAYS 04/27 completed Not Available Not Available Not Available hydroxyzine pamoate 25 mg capsule 03/19 completed Not Available Not Available Not Available clonazepam 0.5 mg disintegrat ing tablet DISSOLVE 1 TABLET ON TONGUE EVERY DAY FOR 2 DAYS 11/21 completed Not Available Not Available Not Available topiramate 50 mg tablet TAKE 1 TABLET BY MOUTH EVERY DAY active Not Available Not Available No t Available nitrofurant oin monohydrate /macrocryst als 100 [...] completed Not Available Not Available Not Available BinaxNOW COVID-19 Ag Self Test kit TEST DIRECTED TODAY 04/27 completed Not Available Not Available Not Available Lybalvi 5 mg-10 mg tablet TAKE 1 TABLET BY MOUTH DAILY 05/21 completed Not Available Not Available Not Available topiramate 50 mg sprinkle capsule TAKE 1 CAPSULE BY MOUTH DAILY 04/27 completed Not Available Not Available Not Available Vitals None Recorded Social History Question Answer Notes LastModified by Organizat ion Details LastModified Time Tobacco Smoking Status Former Smoker Lore Cesar RN null, [place] [employer] 03/19/2024 10:36:37 Do You Have An Advance [...] Do You Have A Medical Power Of Respiratory Clinician? 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 Current user of electronic cigarettes Information not available 03/19/2024 What is your exercise level? Occasional Information not available 03/19/2024 Mental Status Question Answer Note LastModified by Organization D etails LastModified Time Do you feel stressed (tense, restless, nervous, or anxious, or unable to sleep at night)? [id number] Information not available 04/27/2025 Family History Relationship Description Onset Age of [...] Diagnosis SNOMED-CT Code Diagnosis ICD10 Code Diagnosis IMO Codes Diagnosis Note [id number] Tim Gardner MD [address] [address] 04/27/2025 10:23:44 04/27/2025 10:46:13 Essential hypertension 31277662 I10 Advised to check BP before taking, do not take of less than 130/80 Increased thirst 4825285 03 R63.1 911338 Abnormal cravings Long-term current use of benzodiazepine [id number] Z79.899 [id number] clonazepam , last dose this AM [id number] Tim Gardner MD [address] [address] 04/29/2025 09:30:20 04/29/2025 09:50:10 Health Concerns Section Related Observation LastModified by Organization Detai ls LastModified Time None Recorded Concern Status LastModified by Organization Details LastModified Time None Recorded Payers Encounter Date Sequence Insurance Name Policy Number Policy Lange Covered Member ID Lange Member ID Guarantor Name 04/29/2025 1 [facility] (MEDICAID HMO) [id number] Elizabeth Lim [id number] Elizabeth Lim OBGyn Episode No OBEpisode recorded.
--- OUTSIDE RECORDS SUMMARY | 2025-06-12 09:32 | XMS_ITS | Patient Health Record ---
Author Organization [facility] Address [address] [place] [address] Care Team Providers Care Teleprinter Installer Name Role Phone Saturnino, Sally Primary Care Provider Soha Coles Unavailable [phone] Yanira Pineda Unavailable Latisha Palacios Unavailable [phone] Allergies Allergen (clinical drug ingredient) Drug/Non Drug [...] neg BUP neg TCA neg FTY neg PDF Report Reviewed date:04/27/2025 03:44:13 PM Interpretation: Performing Lab:[facility], [address] [place] [address], Phone - [phone], Director - [facility] Notes/Report: PDF Report1 [facility] Comprehensive Drug Analysis, Urine Reviewed date:04/27/2025 03:44:13 PM Interpretation:Normal Performing Lab:[facility], [address] [place] [address], Phone - [phone], Director - [facility] Notes/Report: Summary Report (Summary) FINAL COMPREHENSIVE DRUG [...] test is not intended to distinguish between ojlys-0-qexxsovlgoriyywcsspp, the predominant form of THC in most herbal or marijuana-based products, and obbfi-6-mwqyvhvtaeoctcljhpty. Topiramate PRESENT Acetaminophen PRESENT Test Result Flag Units Ref Range Creatinine 53 mg/dL >=20 For clinical consultation, please call . PDF . Reason For Referral Reason Therapy, counseling Diagnosis 1 Bipolar affective di sorder (F31.9) Diagnosis 2 Generalized anxiety disorder (F41.1) Referral Organization [facility] Referring Provider First Name Sally Referring Provider Last Name Saturnino Referring Provider Speciality Psychiatry Referred Provider Specialty [facility] General Notes Sally Matamoros A 11:06:43 AM > Client with high levels of depression and anxiety. Reports passive SI, denies any plan or intent, but reports wanting to start therapy and have further support as soon as she is able. Please refer. Thank you. Clinical Notes Ahsan Pineda 08/14/2024 02:04:11 PM > Feed Research Technician spoke with client who states she has an appointment scheduled next sunday. Feed Research Technician will fidelina referral as addressed. 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 Stress is when someone feels tense, nervous, anxious, or can\t sleep at night because their mind is troubled Somewhat In the past year have you sp ent more than 2 nights in a row in a halfway, group home, fci center, or juvenile correctional facility? No Do [...] Status Risk Notes Problem Morbid obesity (disorder) (793247464) Morbid (severe) obesity due to excess calories (E66.01) Active confirmed Problem Generalized anxiety disorder (02220981) Generalized anxiety disorder (F41.1) Active confirmed Problem Tobacco dependence (18947978) Tobacco dependence (F17.200) Active confirmed Problem Anxiety (22118774) Anxiety (F41.9) Active confirmed Problem Bipolar affective disorder (02948283) Bipolar affective disorder (F31.9) Active confirmed Problem Depressive disorder (54488743) Depressive disorder (F32.9) Active confirmed Problem Posttraumatic stress disorder (74011451) Chronic post-traumatic stress disorder (PTSD) (F43.12) Active confirmed Problem Overweight (419183979) Over weight (E66.3) Active confirmed Problem Obesity (271564846) Obesity (BMI 30-39.9) (E66.9) Active confirmed Problem Sleep disturbance (13189921) Sleep disturbance, unspecified (G47.9) Active confirmed Problem Body mass index 40+ - severely obese (124373951) Body mass index (BMI) of 40.0-44.9 in adult (Z68.41) Active confirmed Vital Signs Heart Rate 99 /min 05/25/2025 Temperature 97.9 degrees Fahrenheit 05/25/2025 Respiratory Rate 16 /min 05/25/2025 Blood pressure diastolic 84 mm Hg 05/25/2025 Oximetry 100 % 05/25/2025 Height 66 inches in 05/25/2025 Blood pressure systolic 122 mm Hg 05/25/2025 Weight 200 lbs lbs 05/25/2025 BMI 32.28 kg/m2 05/25/2025 Encounters Encounter Location Date Provider Diagnosis Formerly [facility], [facility] [address] [place] [address] 04/15/2025 Sally Matamoros Cannabis use disorder F12.[address] [place] [address] 08/13/2024 Sally Matamoros Bipolar affective disorder F31.9 ; Generalized anxiety disorder F41.1 ; Chronic post-traumatic stress disorder (PTSD) F43.12 ; Sleep disturbance, unspecified G47.9 ; Cannabis use disorder F12.90 and Medication monitoring encounter Z51.[address] [place] [address] 09/03/2024 Sally Matamoros Bipolar affective disorder F31.9 ; Generalized anxiety disorder F41.1 ; Chronic post-traumatic stress disorder (PTSD) F43.12 ; Sleep disturbance, unspecified G47.9 ; Cannabis use disorder F12.90 and Medication monitoring encounter Z51.[address] [place] [address] 10/01/2024 Sally Matamoros Bipolar affective disorder F31.9 ; Generalized anxiety disorder F41.1 ; Chronic post-traumatic stress disorder (PTSD) F43.12 ; Sleep disturbance, unspecified G47.9 ; Cannabis use disorder F12.90 and Medication monitoring encounter Z51.81 Formerly [facility], [facility] [address] [place] [address] 10/07/2024 Sally Matamoros Bipolar affective disorder F31.9 ; Generalized anxiety disorder F41.1 ; Chronic post-traumatic stress disorder (PTSD) F43.12 ; Sleep disturbance, unspecified G47.9 ; Cannabis use disorder F12.90 and Medication monitoring encounter Z51.[address] [place] [address] 10/15/2024 Latisha Palacios Anxiety F41.9 Formerly [facility], [facility] [address] [place] [address] 10/21/2024 Sally Matamoros Bipolar affective disorder F31.9 ; Generalized anxiety disorder F41.1 ; Chronic post-traumatic stress disorder (PTSD) F43.12 ; Sleep disturbance, unspecified G47.9 ; Cannabis use disorder F12.90 and Medication monitoring encounter Z51.81 Formerly [facility], [facility] [address] [place] [address] 11/04/2024 Sally Matamoros Bipolar affective disorder F31.9 ; Generalized anxiety disorder F41.1 ; Chronic post-traumatic stress disorder (PTSD) F43.12 ; Sleep disturbance, unspecified G47.9 ; Cannabis use disorder F12.90 and Medication monitoring encounter Z51.[address] [place] [address] 12/25/2024 Sally Matamoros Bipolar affective disorder F31.9 ; Generalized anxiety disorder F41.1 ; Chronic post-traumatic stress disorder (PTSD) F43.12 ; Sleep disturbance, unspecified G47.9 ; Cannabis use disorder F12.90 and Medication monitoring encounter Z51.[address] [place] [address] 01/15/2025 Sally Matamoros Bipolar affective disorder F31.9 ; Generalized anxiety disorder F41.1 ; Chronic post-traumatic stress disorder (PTSD) F43.12 ; Sleep disturbance, unspecified G47.9 ; Cannabis use disorder F12.90 and Medication monitoring encounter Z51.81 Formerly [facility] [place] [address] 05/12/2025 Sally Matamoros Over weight E66.[address] [place] [address] 05/25/2025 Sally Matamoros Bipolar affective disorder F31.9 ; Generalized anxiety disorder F41.1 ; Chronic post-traumatic stress disorder (PTSD) F43.12 ; Sleep disturbance, unspecified G47.9 ; Cannabis use disorder F12.90 ; Over weight E66.3 and Medication monitoring encounter Z51.[address] [address] 08/13/2024 Sally Matamoros [facility] [address] [place] [address] 08/14/2024 Sally Matamoros [facility] [address] [place] [address] 08/14/2024 Yanira Pineda [facility] [address] [facility] [place] [address] 08/26/2024 Sally Matamoros Bipolar affective disorder F31.9 [facility] [address] [facility] [place] [address] 10/01/2024 Sally Matamoros [address] [place] [address] 10/01/2024 Sally Matamoros [address] [place] [address] 10/01/2024 Sally Matamoros [address] [place] [address] 10/10/2024 Sally Matamoros [address] [place] [address] 10/13/2024 Sally Matamoros [address] [place] [address] 10/15/2024 Sally Matamoros [address] [place] [address] 10/16/2024 Sally Matamoros [address] [place] [address] 10/30/2024 Sally Matamoros [address] [place] [address] 12/18/2024 Sally Matamoros Generalized anxiety disorder F41.1 [facility] [address] [place] [address] 12/25/2024 Sally Matamoros [address] [place] [address] 04/14/2025 Sally Matamoros Medication monitoring encounter Z51.81 and Anxiety F41.[address] [place] [address] 04/24/2025 Sally Matamoros Generalized anxiety disorder F41.1 and Bipolar affective disorder F31.[address] [place] [address] 04/27/2025 Sallyadi ManzanoSaturnino [facility] [address] [place] [address] 05/15/2025 Sally Matamoros [address] [address] 10/17/[address] [address] 11/11/2024 Sally Matamoros Bipolar affective disorder F31.[address] [address] 12/07/20[address] [address] 12/07/2024 Sally Matamoros Generalized anxiety disorder F41.1 Assessments Encounter Date Diagnosis (ICD Code) Assessment Notes Treatment Notes Treatment Clinical Notes Section Notes 08/13/2024 Bipolar affective disorder (ICD-10 - F31.9) Start lithium. Take as prescribed. Discussed uses for bipolar depression with SI. Reviewed risks associated like toxicity and water intake, cardiovascular changes. Educated on monitoring weight, kidney function and therapeutic blood trough levels. [facility]: Have lithium level drawn after taking [...] kidney function and therapeutic blood trough levels. [facility]: Have lithium level drawn after taking [...] Topamax. Client reports SI on lamotrigine. Discussed Myrl 10/01/2024 Bipolar affective disorder (ICD-10 - F31.9) Will request hospital records, decreasing dose and monitoring, get lab Sunday morning to keep close eye on levels. Labs to [facility] Past: Seroquel Past trials: Seroquel- headache at higher doses. Abilify- just stopped working. Retried Abilify and felt shaky. Risperdal- SE not tolerable. Topamax- headache, slurrred words per client- hx of doing well on Topamax. Client reports SI on lamotrigine. Discussed Myrl 10/07/2024 Bipolar affective disorder (ICD-10 - F31.9) Past: Seroquel Past trials: Seroquel- headache at higher doses. Abilify- just stopped working. Retried Abilify and felt shaky. Risperdal- SE not tolerable. Topamax- headache, slurrred words per client- hx of doing well on Topamax. Client reports SI on lamotrigine. Discussed Myrl 10/15/2024 Anxiety (ICD-10 - F41.9) 10/21/2024 Bipolar [...] or pancreas dysfunction/failure. Labs in 1 week. [facility] weaned, stop today. Past: Seroquel Past trials: [...] at this time. PDMP checked without concerns 10/07/2024 Generalized anxiety [...] not be drinking. PDMP checked without concerns 08/13/2024 Generalized anxiety [...] ETOH use Sat. PDMP checked without concerns 09/03/2024 Generalized anxiety [...] (PTSD) (ICD-10 - F43.12) encouraged therapy/counseling 05/25/2025 Sleep disturbance, unspecified (ICD-10 - G47.9) Discouraged caffeine intake. Trazodone with night-terrors 01/15/2025 Sleep disturbance, unspecified (ICD-10 - G47.9) Discouraged caffeine intake. Trazodone with night-terrors 12/25/2024 Sleep disturbance, unspecified (ICD-10 - G47.9) [...] cause adverse reactions. Patient voiced understanding. 05/25/2025 Over weight (ICD-10 - E66.3) 01/15/2025 Medication monitoring encounter (ICD-10 - Z51.81) 12/25/2024 Medication monitoring encounter (ICD-10 - Z51.81) 11/04/2024 Medication monitoring encounter (ICD-10 - Z51.81) 10/07/2024 Medication monitoring encounter (ICD-10 - Z51.81) 10/21/2024 Medication monitoring encounter (ICD-10 - Z51.81) 10/01/2024 Medication monitoring encounter (ICD-10 - Z51.81) 08/13/2024 Medication monitoring encounter (ICD-10 - Z51.81) 09/03/2024 Medication monitoring encounter (ICD-10 - Z51.81) 05/25/2025 Medication monitoring encounter (ICD-10 - Z51.81) 08/13/2024 Other Reasons, potential benefits, potential risks, [...] also contact the 24-hour crisis hotline ([facility]), refer to the closest emergency [...] also contact the 24-hour crisis hotline ([facility]), refer to the closest emergency [...] also contact the 24-hour crisis hotline ([facility]), refer to the closest emergency [...] treatment plan and follow up. 10/15/2024 Other Feed Research Technician met with client via telehealth to discuss referral. The advertising writer encouraged and engaged in critical thinking [...] also contact the 24-hour crisis hotline ([facility]), refer to the closest emergency [...] also contact the 24-hour crisis hotline ([facility]), refer to the closest emergency [...] also contact the 24-hour crisis hotline ([facility]), refer to the closest emergency [...] also contact the 24-hour crisis hotline ([facility]), refer to the closest emergency [...] Insured Coverage Start Date Coverage End Date Review Trackers [address] [place] [phone] [id number] Hooks Self - patient is the insured 2 5 MEDICAID [address] [place] [address] [id number] Hooks Self - patient is the insured 5 [facility] Att[facility] Claims Department [address] [place] [phone] Hooks Self - patient is the insured 6 1 [facility] [address] [place] [phone] [id number] Hooks Self - patient is the insured 2 1 [employer] [address] [place] [phone] [id number] Hooks Self - patient is the insured 2 5 SHAYLA BELLO [facility] [address] [place] [address] [id number] Elizabeth Lim Self - patient is the insured 5 5 Medical (General) History Medical History History ICD Code Anxiety Bipolar disorder Major depressive disorder, single episod e, unspecified F32.9 Seizures R56.9 Surgical History Surgery Date(Month/Year) 01/2017 appendectomy Hospitalization History Reason Date(Month/Year) Seizure hospitalization at [facility] 10/05/24
--- OUTSIDE RECORDS SUMMARY | 2025-06-12 09:32 | XMS_ITS | Clinical Summary ---
Author Organization [facility] Address [address] [place] [address] Care Team Providers Care Organizational Development Specialist Name Role Phone Unavailable Primary Care Provider Unavailabl e Source Comments [facility],non-owned Affiliates and Associated Physician Practices is amultiple site organization consisting of ambulatory clinics and hospital sitesin [place], [place], [place] and [place]. This disclosure is being madepursuant to the Care Everywhere program and may not contain all information available regarding this patient. 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
--- OUTSIDE RECORDS SUMMARY | 2025-06-12 09:32 | XMS_ITS | Data Portability ---
Author Organization [facility], Main Office Address [address] [place] [address] Assessment No assessment recorded. Plan of Treatment Reminders Order Date Submit Date Provider Last Modified By Organization Details Last Modified Time Details Appointments None recorded. Lab drug screen, urine [address] (Lab), [address] [place], [address], 10:17:24 glycohemogl obin, total, blood [address] (Lab), [address] [place], [address], 10:17:24 CBC w/ auto diff 2024 [facility] (Lab), [address] [place], [address], 04:34:22 TSH, serum or plasma 2024 025 [facility] (Lab), [address] [place], [address], 04:34:22 CMP, serum or plasma 2024 025 [facility] (Lab), [address] [place], [address], 04:34:22 hemoglobin A1C, fingerstick 2024 025 [facility], [address], [place], [address], 14:50:47 microalbumi n, dipstick, urine 2024 025 [facility] ([facility]), [address] [place], [address], 09:00:16 Referral ophthalmolo gist referral - Please call patient to schedule an appointment . Thank you. 2023 024 [email or web address] Gustavo, Professional Norah [address], [place], [address], 08:54:14 neurologist referral - Please call patient to schedule an appointment . Thank you. 2023 024 [email or web address] Gildardo Chao MD, [address], [place], [address], 08:53:39 Procedures None recorded. Surgeries None recorded. Imaging None recorded. Medication Orders lisinopril 20 mg tablet 2024 025 [id number], [address] [place] [address], [id number], 10:53:35 amoxicillin 875 mg-potassiu m clavulanate 125 mg tablet [address] [facility][id number], [address] [place] [address], [id number], 10:35:17 lisinopril 10 mg tablet 2024 025 [facility] #[id number], [address] [place] [address], [id number], 12:56:00 Patient TargetsNo targets recorded. Patient Instructions Encounter Date Encounter Id Patient Instructions Last Modified By Organization Details Last Modified Time 11/28/2024 [id number] albumin urine test: about this test emely Not available 11/28/2024 14:42:29 Reason for Referral Neurologist Referral for Sta tus migrainosus Please call patient to schedule an appointment. Thank you. Referring Physician: Elin Chau [facility], Encounter Date: 05/28/2024 Conduit Worker Referral for Visual disturbance Please call patient to schedule an appointment. Thank you. Referring Physician: Elin Chau [facility], Encounter Date: 05/28/2024 Results Created Date Observation Date Name Description Value Unit Range Abnormal Flag Note LastModifiedBy Organization Detail LastModifiedTime 11/29/1911/28/2024 hemog lobin A1C, finge rstic k HgbA1C 4.8 Not Available [address], [address], 11/28/2024 14:27:36 11/20/1911/19/2024 lumba r punct ure (PROC ) No observ ation record ed. [email or web address] [facility]: Pulmonology [address] [place], [address], 11/19/2024 13:16:26 Result Notes None recorded. Problems Name Problem SNOMED Code Status Onset Date Resolution Date Notes Provider Name and Address Organization Details Recorded Time Hypoglycemi a 503649023 Active 2023 MILLIE Jose [address], [place], [address], [employer] [facility] 4 10:43:26 Sacral back pain 70247417 Active 2023 MILLIE Jose [address], [place], [address], [employer] [facility] [employer] [facility] 4 10:45:11 Obesity 224668074 Active 2023 MILLIE Jose [address], [address], [place], [address], [facility] 5 10:55:11 Bipolar disorder 03472141 Active 2023 MILLIE Jose [address], [address], [place], [address], [facility] 4 10:52:07 Low back pain 333254922 Active 2023 MILLIE Jose [address], [address], [place], [address], [facility] 4 12:28:56 Essential hypertensio n 39519562 Active 2023 Lore Cesar RN null, [facility] 5 10:31:50 Migraine with aura 5995704 Active [address], [address], [place], [address], [facility] 4 10:28:40 Status migrainosus 588758667 Active 2023 MILLIE Jose [address], [address], [place], [address], [facility] 4 10:47:52 Visual disturbance 42830243 Active [address], [address], [place], [address], [facility] 4 10:48:10 Mass of body structure 376077013 Active 2024 MILLIE Jose [address], [address], [place], [address], [facility] 5 12:58:13 Ketonuria 700016679 Active [address], [place], [address], [facility] 5 14:26:44 Fever with chills 791488638 Active 2024 MILLIE Jose [address] [facility], [address] [address], [place], [address], [facility] 14:27:54 Injury of left leg 2203523331569 9107 Active 2024 MILLIE Jose [address] [facility], [address] [address], [place], [address], [facility] 08:43:58 Increased thirst 076795760 Active 2024 MILLIE Jose [address] [facility], [address] [address], [place], [address], [facility] 10:53:05 Cortisol level below reference range 952389513 Active 2024 MILLIE Jose [address] [address], [place], [address], [facility] [employer] [facility] 17:10:38 Problem Notes None recorded. Procedures Surgical History Date Name Laterality Status Provider Name and Address Organization Details Recorded Time 07/16/19 20 delivery completed Lore Cesar RN [facility] 03/19/2024 10:32:57 delivery completed Corby Cesar RN [facility] 03/19/2024 10:32:43 Appendectomy completed Lore Cesar RN [facility] 03/19/2024 10:33:05 tonsillectomy and adenoidectomy completed Lore Cesar RN [facility] 03/19/2024 10:33:19 Imaging Results None recorded. Procedure Notes None recorded. Medical Equipment None Reported. Allergies Allergen ID Allergen Name Allergen Category Reaction Reaction Severity Criticality Documentation Date Start Date Code Code System Note Provider Name and Address Organization Details Recorded Time 15050 Vraylar medicatio n seizure moderate Not available 03/19/2024 32178 61 RxNorm suici catalina Lore Cesar RN [facility], [facility] 10:22:59 Medications Name Sig Start Date Stop [...] ONE T PO BID STARTING SUNDAY MORNING 05-20-03/19 completed Not Available Not Available Not Available [...] (BMI) Body weight Body temperature Oxygen saturation Heart rate Systolic And Diastolic Provider Name and Address Organization Details Last Updated DateTime 5 167.64 cm 32 kg/m2 15215.3 9 g 97.4 [degF] 98 % 75 /min 150/100 mm[Hg] Annel Messer RN [facility] 5 12:36:44 Date Recorded Body height Body mass index (BMI) Body weight Body temperature Heart rate Respiratory rate Oxygen saturation Pain severity - 0-10 verbal numeric rating [Score] - Reported Systolic And Diastolic Provider Name and Address Organization Details Last Updated DateTime 5 167.64 cm 31.8 kg/m2 93128.7 g 97.9 [degF] 70 /min 20 /min 99 % 0 140/100 mm[Hg] Lore Cesar RN [facility] 5 14:12:37 Date Recorded Body height Body mass index (BMI) Body weight Body temperature Heart rate Oxygen saturation Pain severity - 0-10 verbal numeric rating [Score] - Reported Respiratory rate Systolic And Diastolic Provider Name and Address Organization Details Last Updated DateTime 5 167.64 cm 31.2 kg/m2 02801.4 8 g 98.2 [degF] 77 /min 99 % 0 20 /min 152/82 mm[Hg] Lore Cesar RN [facility] 5 10:39:28 Date Recorded Body height Body mass index (BMI) Body weight Body temperature Heart rate Respiratory rate Oxygen saturation Pain severity - 0-10 verbal numeric rating [Score] - Reported Systolic And Diastolic Provider Name and Address Organization Details Last Updated DateTime 4 167.64 cm 36.7 kg/m2 973027. 92 g 97.9 [degF] 92 /min 20 /min 99 % 4 160/100 mm[Hg] Lore Cesar RN [facility] [employer] [facility] 4 10:28:39 Social History Question Answer Notes LastModified by Organizat ion Details LastModified Time Tobacco Smoking Status Former Smoker Lore Cesar RN [facility], [facility] [employer] [facility] 03/19/2024 10:36:37 Do You Have [...] Do You Have A Medical Power Of Mining Speculator? 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 Current user of electronic cigarettes Information not available 03/19/2024 What is your exercise level? Occasional Information not available 03/19/2024 Mental Status Question Answer Note LastModified by Organization D etails LastModified Time Do you feel stressed (tense, restless, nervous, or anxious, or unable to sleep at night)? [id number] Information not available 04/27/2025 Family History Relationship Description Onset Age of this Age Resolved Age Notes LastModified by Organization Details LastModified Time Mother Hypertensive disorder Not available 2023 10:32:05 Maternal Grandfather Hypertensive disorder Not available 2023 10:32:05 Medical History Condition Response OTHER # 1 Y DEPRESSION (INCLUDING POST ) Y OBESITY Y DIABETES, TYPE Y HEADACHES/MIGRAINES Y HYPERTENSION Y ANXIETY DISORDER Y Gynecological History Statement/Question Response Date of Last Pap Smear Current Control Method IUD Obstetrics History GPAL:G 0 P 0 0 0 0 Past Encounters Encounter ID Performer Location Encounter Start Date Encounter Closed Date Diagnosis/Indication Diagnosis SNOMED-CT Code Diagnosis ICD10 Code Diagnosis IMO Codes Diagnosis Note [id number] Tim Gardner MD [address] [address] 03/19/2024 09:52:14 03/19/2024 11:00:55 Hypoglycemia 529408876 E16.2 Sacral back pain 8279921 3 M54.50 Has been doing stretches at home Obesity 066073693 E66.9 Bipolar disorder 1036708 4 F31.9 Sees psych [id number] Tim Gardner MD [address] [address] 05/21/2024 10:12:08 05/21/2024 10:44:07 Essential hypertension 40483558 I10 Advised to check BP before taking, do not take of less than 130/80 Migraine with aura 95335 06 G43.109 Ubrelvy given in office [id number] Tim Gardner MD [address] [address] 05/28/2024 10:20:10 05/28/2024 11:00:01 Status migrainosus 316516314 G43.901 Due to risk of intercrani al hypertensi on, patient advised to FU at [facility] today Visual disturbance 84856 001 H53.9 [id number] MILLIE Jose [address] [address] 11/21/2024 12:16:07 11/24/2024 08:05:45 Essential hypertension 05942408 I10 18107 Advised to check BP before taking, do not take of less than 130/80 Mass of arti dy structure 682733255 G93.2 38646717 Managed by neuro, just has LP and has MRI tomorrow [id number] MILLIE Jose [address] [address] 11/28/2024 14:04:00 12/02/2024 10:55:32 Ketonuria 632339355 R82.4 [id number] Identified in ER Fever with chills 465008 006 R50.9 01581 Perisisten t x 1 week, elevated WBC in ERrecent LP [id number] Tim Gardner MD [address] [address] 04/27/2025 10:23:44 04/27/2025 10:46:13 Essential hypertension 50812798 I10 Advised to check BP before taking, do not take of less than 130/80 Increased thirst 3905152 03 R63.1 987931 Abnormal cravings Long-term current use of benzodiazepine 0169909451 1044718 Z79.899 06388277 clonazepam , last dose this AM [id number] Tim Gardner MD [address] [address] 04/29/2025 09:30:20 04/29/2025 09:50:10 Health Concerns Section Related Observation LastModified by Organization Detai ls LastModified Time None Recorded Concern Status LastModified by Organization Details LastModified Time None Recorded Advance Directives Directive N: Payers Insurance Date Sequence Insurance Name Policy Number Policy Lange Covered Member ID Lange Member ID Guarantor Name 04/29/2025 1 [facility] [place] Elizabeth Lim [id number] Elizabeth Lim 04/29/2025 1 [facility] [place] (MEDICAID HMO) [id number] Elizabeth Lim [id number] Elizabeth Lim 04/29/2025 1 [facility] DOS PRIOR TO 2021 (MEDICAID REPLACEMENT - HMO) Elizabeth Lim [id number] Elizabeth Lim Notes Date Note Type Note Provider Name and Address Organization Details Recorded Time 05/28/2024 text/html Elizabeth Lim is a 28 year old female patient here today to FU on a headache She was seen here on 05/21 for a migraine, she was given a Ubrelvy sample and sent home to rest. After leaving here she began vomiting and had visual changes. She went to [place] [facility] and was found by US to have papilledema. She was sent to [place] for a spinal tap and MRI, Farzad saw her, did no imaging or labs and sent her home. The next morning her vision got worse and she went to [place] [facility]. There she was given HCTZ. She is still having intermittent blurred vision, constant headache around the occipital region. Her blood pressure is still extremely elevated at 160/100, despite lisinopril and HCTZ. Pt advised to return to [facility] MILLIE Jose [address], [facility] [address], [place], [address], [employer] [facility] 05/28/2024 10:51:05 11/21/2024 text/html Elevated blood pressure. She did previously take lisinopril 10 mg and stopped this. We will restart. She did have a lumbar puncture on 11/19/24, this is normal.She has chronic migraines. She does see neurology, he states she has excessive pressure around her brain. MILLIE Jose [address], [address], [place], [address], [employer] [facility] [employer] 11/21/2024 13:01:18 11/28/2024 text/html Sunday morning she woke up with generalized body aches, chills [...] in 3 weeks. MILLIE Jose [address], [address], [place], [address], [employer] 11/28/2024 15:04:23 04/27/2025 text/html Elizabeth Lim is a 29 year old female patient here today for a med FU She has been seeing [facility] for depression. She is taking topiramate now. She feels that this is working well. She has nonepileptic seizures. She was recently switch from clonazepam to lorazepam. With this switch, she began experiencing daily seizures. She had to take leave from work due to frequent seizures.She was then switched back to clonazepam 0.5 mg BID PRN.She does see neuro on 05/18/25, he does not currently manage her controlled substances. MILLIE Jose [address], [address], [place], [address], [employer] 04/27/2025 11:01:39 OBGyn Episode No OBEpisode recorded.
--- OUTSIDE RECORDS SUMMARY | 2025-06-12 09:32 | XMS_ITS | Clinical Summary ---
Author Organization [facility] Address [address] [place] [address] Care Team Providers Care Windshield Technician Name Role Phone Unknown, Notinfile Primary Care [...] 06/02/2024 Assessment & Plan (06/02/2024 11:51 AM UNDERGROUND MINE SUPERINTENDENT): No papilledema on multiple exams, HVF and [...] on file Legal Sex Female 4:24 AM UNDERGROUND MINE SUPERINTENDENT Gender Identity Not on file Sexual Orientation Not on file Last Filed Vital Signs Vital Sign Reading Time Taken Comments Blood Pressure 128/95 05/28/2024 3:31 PM UNDERGROUND MINE SUPERINTENDENT Pulse 70 05/28/2024 3:31 PM UNDERGROUND MINE SUPERINTENDENT Temperature 36.7 C (98.1 F) 05/28/2024 11:51 AM UNDERGROUND MINE SUPERINTENDENT Respiratory Rate 16 05/28/2024 3:31 PM UNDERGROUND MINE SUPERINTENDENT Oxygen Saturation 99% 05/28/2024 3:31 PM UNDERGROUND MINE SUPERINTENDENT Inhaled Oxygen Concentration - - Weight 104.3 kg (229 lb 15 oz) 05/28/2024 11:51 AM UNDERGROUND MINE SUPERINTENDENT Height 165.1 cm (5' 5) 05/28/2024 11:51 AM UNDERGROUND MINE SUPERINTENDENT Body Mass Index 38.26 05/28/2024 11:51 AM UNDERGROUND MINE SUPERINTENDENT Plan of Treatment Health Maintenance Due Date [...] 03/04/2001 Varicella Vaccines Completed 01/27/2009, 06/02/1999 Insurance [facility] IDPA Care Teams Windshield Technician Relationship Specialty Start Date End Date Unknown, Notinfile PCP - General 05/22/24
--- OUTSIDE RECORDS SUMMARY | 2025-06-12 09:32 | XMS_ITS | Continuity of Care Document ---
Author Organization [facility], [facility] Address [address] [place] [address] Assessment No assessment recorded. Plan of Treatment Reminders Order Date Submit Date Provider Last Modified By Organization Details Last Modified Time Details Appointments None recorded. Lab drug screen, urine [address] (Lab), [address] [place], [address], 10:17:24 glycohemogl obin, total, blood [address] (Lab), [address] [place], [address], 10:17:24 CBC w/ auto diff 2024 [facility] (Lab), [address] [place], [address], 04:34:22 TSH, serum or plasma 2024 025 [facility] (Lab), [address] [place], [address], 04:34:22 CMP, serum or plasma 2024 025 [facility] (Lab), [address] [place], [address], 04:34:22 Referral None recorded. Procedures None recorded. Surgeries None recorded. Imaging None recorded. Medication Orders lisinopril 20 mg tablet 2024 025 MALINI [id number], [address] [place], [place], [id number], 5 10:53:35 Patient TargetsNo targets recorded. Patient InstructionsNo instructions recorded. Reason for Referral None Reported. Results Created Date Observation Date Name Description Value Unit Range Abnormal Flag Note LastModifiedBy Organization Detail LastModifiedTime Result Notes None recorded. Problems Name Problem SNOMED Code Status Onset Date Resolution Date Notes Provider Name and Address Organization Details Recorded Time Hypoglycemi a 445702077 Active 2023 MILLIE Jose [address], [place] [address] [place] [address], [address], Why Not Give Back [facility] [employer] 4 10:43:26 Sacral back pain 59685572 Active 2023 MILLIE Jose [address], Jayson [address] [place] [address], [address], Why Not Give Back [facility] [employer] 4 10:45:11 Obesity 313295214 Active 2023 MILLIE Jose [address], [place] [address] [place] [address], [address], Why Not Give Back [facility] [employer] 5 10:55:11 Bipolar disorder 76749751 Active 2023 MILLIE Jose [address], [address], [place], [address], Why Not Give Back [facility] [employer] 4 10:52:07 Low back pain 815297941 Active 2023 MILLIE Jose [address], [address], [place], [address], Why Not Give Back [facility] [employer] 4 12:28:56 Essential hypertensio n 27610446 Active 2023 Lore Cesar RN null, [place] [facility] [employer] [place] [facility] 5 10:31:50 Migraine with aura 6829336 Active 2023 MILLIE Jose [address], [address], [place], [address], [facility] 4 10:28:40 Status migrainosus 624217733 Active 2023 MILLIE Jose [address], [address], [place], [address], [facility] 4 10:47:52 Visual disturbance 37814216 Active 2023 MILLIE Jose [address], [address], [place], [address], [facility] 4 10:48:10 Mass of body structure 670352311 Active 2024 MILLIE Jose [address], [address], [place], [address], [facility] 5 12:58:13 Ketonuria 099397479 Active 2024 MILLIE Jose [address], [address], [place], [address], [facility] 5 14:26:44 Fever with chills 910633585 Active 2024 MILLIE Jose [address], [address], [place], [address], [facility] 5 14:27:54 Injury of left leg 5102849379212 9107 Active 2024 MILLIE Jose [address], [address], [place], [address], [facility] 5 08:43:58 Increased thirst 740823663 Active 2024 MILLIE Jose [address], [address], [place], [address], [facility] 5 10:53:05 Cortisol level below reference range 970501446 Active 2024 Elin Chau, ECONOMICS ANALYST [address] [facility], [facility] [address], [place], [address], [facility] 17:10:38 Problem Notes None recorded. Procedures Surgical History Date Name Laterality Status Provider Name and Address Organization Details Recorded Time 07/16/19 20 delivery completed Lore Cesar RN [facility] 03/19/2024 10:32:57 delivery completed Corby Cesar RN [facility] 03/19/2024 10:32:43 Appendectomy completed Lore Cesar RN [facility] 03/19/2024 10:33:05 tonsillectomy and adenoidectomy completed Lore Cesar RN [facility] 03/19/2024 10:33:19 Imaging Results None recorded. Procedure Notes None recorded. Medical Equipment None Reported. Allergies Allergen ID Allergen Name Allergen Category Reaction Reaction Severity Criticality Documentation Date Start Date Code Code System Note Provider Name and Address Organization Details Recorded Time 71076 Vraylar medicatio n seizure moderate Not available 03/19/2024 56409 61 RxNorm suici catalina Lore Cesar RN [facility] 10:22:59 Medications Name Sig Start Date Stop [...] ONE T PO BID STARTING SUNDAY MORNING 05-20-16 03/19 completed Not Available Not Available Not [...] Organization Details Last Updated DateTime 167.64 cm 31.2 kg/m2 63754.4 8 g 98.2 [degF] 77 /min 99 % 0 20 /min 152/82 mm[Hg] Lore Cesar RN [facility] 10:39:28 Social History Question Answer Notes LastModified by Organizat ion Details LastModified Time Tobacco Smoking Status Former Smoker Lore Cesar RN [facility], [facility] 03/19/2024 10:36:37 Do You Have An Advance [...] Do You Have A Medical Power Of Recreation Professor? 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 Current user of electronic cigarettes Information not available 03/19/2024 What is your exercise level? Occasional Information not available 03/19/2024 Mental Status Question Answer Note LastModified by Organization D etails LastModified Time Do you feel stressed (tense, restless, nervous, or anxious, or unable to sleep at night)? [id number] Information not available 04/27/2025 Family History Relationship Description Onset Age of this Age Resolved Age Notes LastModified by Organization Details LastModified Time Mother Hypertensive disorder Not available 2023 10:32:05 Maternal Grandfather Hypertensive disorder Not available 2023 10:32:05 Medical History Condition Response DIABETES, TYPE Y OTHER # 1 Y DEPRESSION (INCLUDING POST ) Y HEADACHES/MIGRAINES Y HYPERTENSION Y OBESITY Y ANXIETY DISORDER Y Gynecological History Statement/Question Response Date of Last Pap Smear Current Control Method IUD Obstetrics History GPAL:G 0 P 0 0 0 0 Past Encounters Encounter ID Performer Location Encounter Start Date Encounter Closed Date Diagnosis/Indication Diagnosis SNOMED-CT Code Diagnosis ICD10 Code Diagnosis IMO Codes Diagnosis Note [id number] Tim Gardner MD [facility] [address] [address] 04/27/2025 10:23:44 04/27/2025 10:46:13 Essential hypertension 13962859 I10 Advised to check BP before taking, do not take of less than 130/80 Increased thirst 1159337 03 R63.1 359738 Abnormal cravings Long-term current use of benzodiazepine 0369480144 1394249 Z79.899 85537428 clonazepam , last dose this AM Health Concerns Section Related Observation LastModified by Organization Detai ls LastModified Time None Recorded Concern Status LastModified by Organization Details LastModified Time None Recorded Payers Encounter Date Sequence Insurance Name Policy Number Policy Lange Covered Member ID Lange Member ID Guarantor Name 04/27/2025 1 [facility] (MEDICAID HMO) [id number] Elizabeth Lim [id number] Elizabeth Lim Notes Date Note Type Note Provider Name and Address Organization Details Recorded Time 04/27/2025 text/html Elizabeth Lim is a 29 year old female patient here today for a med FU She has been seeing [facility] for depression. She is taking topiramate now. [...] does not currently manage her controlled substances. Elin Chau, ECONOMICS ANALYST [address] [facility], [facility] [address], [place], [address], [place] [facility] 04/27/2025 11:01:39 OBGyn Episode No OBEpisode recorded.
--- OUTSIDE RECORDS SUMMARY | 2025-06-12 09:33 | XMS_ITS | Data Portability ---
Author Organization [facility], [id number] Address [address] [place] [address] Assessment No assessment recorded. Plan of Treatment Reminders Order Date Submit Date Provider Last Modified By Organization Details Last Modified Time Details Appointments None recorded. Lab test, [facility] 2024 [facility] [id number] Cecilia Vazquez, [address], [place], [address], 15:55:10 Referral None recorded. Procedures None recorded. Surgeries None recorded. Imaging None recorded. Medication Orders None recorded. Patient TargetsNo targets recorded. Patient InstructionsNo instructions recorded. Reason for Referral None Reported. Results Created Date Observation Date Name Description Value Unit Range Abnormal Flag Note LastModifiedBy Organization Detail LastModifiedTime 03/11/2003/11/2025 pregn jeffery test, urine HCG negati ve Not Available [id number] Cecilia Vazquez [address], [place], [address], 03/11/2025 15:54:48 Result Notes None recorded. Problems Name Problem SNOMED Code Status Onset Date Resolution Date Notes Provider Name and Address Organization Details Recorded Time Bipolar disorder 14219921 Active Bipolar, Problem Code: 296.80; Problem Code Type: ICD-9; Startdate: '2012'; Not Available [facility] 12:55:22 Epilepsy 61383838 Active Seizure Disorder, non epileptic Problem Code: 345.90; Problem Code Type: ICD-9; Not Available [facility] 12:55:22 Disorder of breast 22591457 Active 2024 Mushtaq Dunham [facility] 15:14:09 Pain of breast 25549532 Active 2024 HALEY HAQ RIGOBERTO [address], [place], [address] , [facility] 15:52:48 Amenorrhea 42201136 Active 2024 HALEY HAQ RIGOBERTO [address], [place], [address] , [facility] 15:54:45 Problem Notes None recorded. Procedures Surgical History Date Name Laterality Status Provider Name and Address Organization Details Recorded Time 03/11/20 25 IUD Removal Procedure Note ([facility]) completed HALEY HAQ RIGOBERTO [address], [place], [address], [facility] 03/11/2025 15:52:17 Appendectomy completed Not Available [facility] 11/13/2024 14:51:40 delivery only completed Not Available Critical access hospital 11/13/2024 14:51:40 tonsillectomy completed Not Available [facility] 11/13/2024 14:51:40 introduction of Mirena coil completed Not Available [facility] 11/13/2024 14:51:40 Imaging Results None recorded. Procedure Notes None recorded. Medical Equipment None Reported. Allergies No known drug allergies Medications Name Sig Start Date Stop Date Status Note LastModified by Organization Details LastModified Time Mirena 21 mcg/24 hr (up to 8 years) 52 mg intrauterin e device Take by intrauter ine route. 2019 active Not Available Not Available Not Avai lable lamotrigine 150 mg tablet TAKE 1 TABLET BY MOUTH DAILY 03/11 completed Not Available Not Available Not Available trazodone 50 mg tablet TAKE 1/2 TO 1 TABLET BY MOUTH DAILY AT BEDTIME NEEDED 03/11 completed Not Available Not Available Not Available fluconazole 150 mg tablet TAKE 1 TABLET BY MOUTH EVERY 72 HOURS 03/11 completed Not Available Not Available Not Available clonazepam 0.5 mg tablet TAKE 1 TABLET BY MOUTH TWICE DAILY NEEDED active Not Available Not Available No t Available lithium carbonate ER 300 mg tablet,exte nded release TAKE 2 TABLETS BY MOUTH DAILY AT BEDTIME FOR 7 DAYS 03/11 completed Not Available Not Available Not Available topiramate 25 mg tablet TAKE 1 TABLET BY MOUTH ONCE A DAY FOR 30 DAYS 03/11 completed Not Available Not Available Not Available prochlorper azine maleate 10 mg tablet TAKE 1 TABLET BY MOUTH TWICE DAILY NEEDED FOR NAUSEA OR VOMITTING 03/11 completed Not Available Not Available Not Available lithium carbonate ER 450 mg tablet,exte nded release TAKE 2 TABLETS BY MOUTH DAILY AT BEDTIME FOR 15 DAYS 03/11 completed Not Available Not Available Not Available lamotrigine 25 mg tablet TAKE 1 TABLET BY MOUTH EVERY DAY FOR TOTAL DOSE OF 175MG 03/11 completed Not Available Not Available Not Available lorazepam 0.5 mg tablet TAKE 2 TO 3 TABLETS BY MOUTH NEEDED FOR 7 DAYS 03/11 completed Not Available Not Available Not Available cephalexin 500 mg capsule TAKE 1 CAPSULE BY MOUTH TWICE A DAY FOR 7 DAYS 03/11 completed Not Available Not Available Not Available lisinopril 10 mg tablet TAKE 1 TABLET BY MOUTH EVERY DAY DIRECTED active Not Available Not Available No t Available divalproex ER 500 mg tablet,exte nded release 24 hr TAKE 1 TABLET BY MOUTH DAILY AT NIGHT 03/11 completed Not Available Not Available Not Available diclofenac sodium 75 mg tablet,megan yed release TAKE 1 TABLET BY MOUTH TWICE DAILY NEEDED 03/11 completed Not Available Not Available Not Available methylpredn isolone 4 mg tablets in a dose pack FOLLOW PACKAGE DIRECTION S 03/11 completed Not Available Not Available Not Available amoxicillin 875 mg-potassiu m clavulanate 125 mg tablet TAKE 1 TABLET BY MOUTH TWICE DAILY DIRECTED X 7 DAYS 03/11 completed Not Available Not Available Not Available clonazepam 0.5 mg disintegrat ing tablet DISSOLVE 1 TABLET ON TONGUE EVERY DAY FOR 2 DAYS 03/11 completed Not Available Not Available Not Available aripiprazol e 2 mg tablet TAKE 1 TABLET BY MOUTH DAILY 03/11 completed Not Available Not Available Not Available Lybalvi 5 mg-10 mg tablet TAKE 1 TABLET BY MOUTH DAILY 03/11 completed Not Available Not Available Not Available topiramate 50 mg sprinkle capsule TAKE 1 CAPSULE BY MOUTH DAILY active Not Available Not Available No t Available Vitals Date Recorded Body height Body mass index (BMI) Body weight Systolic And Diastolic Provider Name and Address Organization Details Last Updated DateTime 03/11/2025 165.1 cm 32 kg/m2 15162.74 g 124/72 mm[Hg] [facility] 03/11/2025 15:15:27 Social History Question Answer Notes LastModified by Organizat ion Details LastModified Time Tobacco Smoking Status Current Every Day Smoker Qty: vape Not Available [facility] 11/13/2024 16:01:46 How Many Times Per Week Do You Exercise? Less Than 1 Time Per Week SocialHist oryQuestio n: 'Active But No Formal Exercise'; Information not available 11/13/2024 What Is Your Relationship Status? Other Note: Single Information not available 11/13/2024 Sex: Female Functional Status Question Answer Note LastModified by Organizat ion Details LastModified Time Do you use any illicit or recreational drugs? Yes Qty: marijuana Information not available 11/13/2024 What is your level of alcohol consumption? 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 Family History Relationship Description Onset Age of this Age Resolved Age Notes LastModified by Organization Details LastModified Time Father Bipolar disorder Bipola r Disord er Not available 11/13/2024 15:47:41 Father Depressive disorder Depres oscar Not available 11/13/2024 15:47:41 Maternal Grandmother Malignant neoplastic disease Cancer MGM-Ov desean Not available 11/13/2024 15:47:41 Mother Hypertensive disorder High Blood Pressu re Grandp arents Not available 11/13/2024 15:47:41 Unspecified Relation Heart disease Heart Diseas e Grandf ather Not available 11/13/2024 15:47:41 Medical History Condition Response Neurology- Seizures/Epilepsy Y Cancer- Genetic screening Psych- Bipolar Disease Y Gynecological History Statement/Question Response Duration of Flow (days) 0 Age at Menarche 15 Current Control Method Flow Moderate Date of LMP 06/15/2020 Obstetrics History GPAL:G 3 P 2 0 1 2 Type Value Multiple Births 0 Full Term 2 Induced 0 Spontaneous 1 Premature 0 Living 2 Ectopics 0 Total 3 Immunizations Vaccine Type Date Status Note Provider Nam e and Address Organization Details Recorded Time Hep B, adolescent or pediatric 8 completed Not Available [facility] 05/20/2025 11:19:41 Hep B, adolescent or pediatric 8 completed Not Available [facility] 05/20/2025 11:19:41 DTaP 8 completed Not Available [facility] 05/20/2025 11:19:41 Hib, unspecified formulation 8 completed Not Available [facility] 05/20/2025 11:19:41 IPV 8 completed Not Available [facility] 05/20/2025 11:19:41 IPV 8 completed Not Available [facility] 05/20/2025 11:19:41 DTaP 8 completed Not Available [facility] 05/20/2025 11:19:41 Hib (PRP-OMP) 8 completed Not Available [facility] 05/20/2025 11:19:41 Hep B, adolescent or pediatric 9 completed Not Available [facility] 05/20/2025 11:19:41 MMR 9 completed Not Available [facility] 05/20/2025 11:19:41 varicella 9 completed Not Available [facility] 05/20/2025 11:19:41 DTaP 1 completed Not Available [facility] 05/20/2025 11:19:41 IPV 1 completed Not Available [facility] 05/20/2025 11:19:41 pneumococcal conjugate PCV 7 1 completed Not Available [facility] 05/20/2025 11:19:41 DTaP 2 completed Not Available [facility] 05/20/2025 11:19:41 MMR 3 completed Not Available [facility] 05/20/2025 11:19:41 IPV 3 completed Not Available [facility] 05/20/2025 11:19:41 Hep A, pediatric, unspecified formulation 9 completed Not Available [facility] 05/20/2025 11:19:41 meningococcal C conjugate 9 completed Not Available [facility] 05/20/2025 11:19:41 DTaP 9 completed Not Available [facility] 05/20/2025 11:19:41 Tdap 9 completed Not Available [facility] 05/20/2025 11:19:41 varicella 9 completed Not Available [facility] 05/20/2025 11:19:41 Hep A, ped/adol, 2 dose 2 completed Not Available [facility] 05/20/2025 11:19:41 Influenza, split virus, trivalent, PF 3 completed Not Available [facility] 05/20/2025 11:19:41 influenza, unspecified formulation 4 completed Not Available [facility] 05/20/2025 11:19:41 meningococcal MCV4P 5 completed Not Available [facility] 05/20/2025 11:19:41 Influenza, split virus, quadrivalent, PF 6 completed Not Available [facility] 05/20/2025 11:19:41 Tdap 7 completed Not Available [facility] 05/20/2025 11:19:41 Influenza, split virus, quadrivalent, PF 7 completed Not Available [facility] 05/20/2025 11:19:41 Tdap 0 completed Not Available [facility] 05/20/2025 11:19:41 Past Encounters Encounter ID Performer Location Encounter Start Date Encounter Closed Date Diagnosis/Indication Diagnosis SNOMED-CT Code Diagnosis ICD10 Code Diagnosis IMO Codes Diagnosis Note [id number] CLAYTON ROSS MD [id number] [facility] [address] [facility] [place] [address] 03/11/2025 14:49:29 03/11/2025 15:46:25 Pain of breast 89201072 N64.4 35911 03/11/25-if breast pain does not resolve in the next 1-2 weeks-call office and I will order US Removal of intrauterine contraceptive device [id number] Z30.363 [id number] 03/11/25-mi alejandro removed today-awar e she needs to use condoms or other method of contracept emma from today if she wants to prevent - does not want any contracept jack at this time but will think about starting something in the next few weeks Amenorrhea 00242338 N91. 2 02146 03/11/25-no t Health Concerns Section Related Observation LastModified by Organization Detai ls LastModified Time None Recorded Concern Status LastModified by Organization Details LastModified Time None Recorded Advance Directives Directive None Recorded Payers Insurance Date Sequence Insurance Name Policy Number Policy Lange Covered Member ID Lange Member ID Guarantor Name 05/20/2025 2 [place] [employer] Elizabeth Lim [id number] Elizabeth Lim 05/20/2025 1 [facility] (MEDICAID HMO) [id number] Elizabeth Lim [id number] Elizabeth Lim Notes Date Note Type Note Provider Name and Address Organization Details Recorded Time 03/11/2025 text/html 03/11/25 pt here for IUD removal. states she had it placed toward the end of 2019. discussed that mirena is good for 8 years. c/o constant abd cramping, poking/metal scraping feeling for years. c/o sore breasts x 1 week. denies any caffeine use, new medication/suppl ements. never has periods with mirena. sexually active-has not taken test. believes sx are from mirena. -chai CALDERON [address], [place], [address], [facility] 03/11/2025 15:55:14 OBGyn Episode Ob Episode Information Episode Created Date Number of Fetuses Patient Bloodtype Patient rh Status Prepregnancy Weight lbs Domestic Partner Domestic Partner Phone Father Name Rehabilitation Team Lead Status 11/29/19 25 1 CLOSED Fetus Data First Name Last Name Admitted to NICU Weight (g) Sex Living Outcome Pediatric Complications Fetus ID Race Codes Race Delivery Type M [id number] [place] Calculation Initial Juan Date Initial Exam Date Initial Exam Provider Initial Ultrasound Date Last Menstrual Period Date Ultra Sound Weeks Gestation 0 Eighteen To Twenty Week Juan Update Ultra Sound Date Fundal Height At Umbil Quickening Date Ultra Sound Latest Weeks Gestation Final Juan Confirmed By Final Juan Confirmed Date Final Juan Date Ultra Sound Latest Days Gestation 0 0 Menstrual History Last Menstrual Date Menses Monthly On Bcp Conception Prior Menses Frequency Hcg Plus Date Menarche Onset Age Delivery Information Delivery Date Delivery Type Labor Anesthesia Weeks Gestation Incision Type Labor Labor Length Hrs Delivered By Post Complications Tubal Sterilization Discharge Date Comments 7 37 BMG, [place] failed IOL, elective, ballotabl e head fetus_1_w eight_lbs : '8# 12oz'; Discharge Information Feeding Method Contraceptive Method Maternal HG B and HCT Levels Ob Episode Information Episode Created Date Number of Fetuses Patient Bloodtype Patient rh Status Prepregnancy Weight lbs Domestic Partner Domestic Partner Phone Father Name Rehabilitation Team Lead Status 11/29/19 25 1 CLOSED Fetus Data First Name Last Name Admitted to NICU Weight (g) Sex Living Outcome Pediatric Complications Fetus ID Race Codes Race Delivery Type M [id number] z[place] Calculation Initial Juan Date Initial Exam Date Initial Exam Provider Initial Ultrasound Date Last Menstrual Period Date Ultra Sound Weeks Gestation 0 Eighteen To Twenty Week Juan Update Ultra Sound Date Fundal Height At Umbil Quickening Date Ultra Sound Latest Weeks Gestation Final Juan Confirmed By Final Juan Confirmed Date Final Juan Date Ultra Sound Latest Days Gestation 0 0 Menstrual History Last Menstrual Date Menses Monthly On Bcp Conception Prior Menses Frequency Hcg Plus Date Menarche Onset Age Delivery Information Delivery Date Delivery Type Labor Anesthesia Weeks Gestation Incision Type Labor Labor Length Hrs Delivered By Post Complications Tubal Sterilization Discharge Date Comments 0 38 BMG, [place] fetus_1_w eight_lbs : '7# 11oz'; Discharge Information Feeding Method Contraceptive Method Maternal HG B and HCT Levels Ob Episode Information Episode Created Date Number of Fetuses Patient Bloodtype Patient rh Status Prepregnancy Weight lbs Domestic Partner Domestic Partner Phone Father Name Rehabilitation Team Lead Status 11/29/19 25 1 CLOSED Fetus Data First Name Last Name Admitted to NICU Weight (g) Sex Living Outcome Pediatric Complications Fetus ID Race Codes Race Delivery Type [id number] Juan Calculation Initial Juan Date Initial Exam Date Initial Exam Provider Initial Ultrasound Date Last Menstrual Period Date Ultra Sound Weeks Gestation 0 Eighteen To Twenty Week Juan Update Ultra Sound Date Fundal Height At Umbil Quickening Date Ultra Sound Latest Weeks Gestation Final Juan Confirmed By Final Juan Confirmed Date Final Juan Date Ultra Sound Latest Days Gestation 0 0 Menstrual History Last Menstrual Date Menses Monthly On Bcp Conception Prior Menses Frequency Hcg Plus Date Menarche Onset Age Delivery Information Delivery Date Delivery Type Labor Anesthesia Weeks Gestation Incision Type Labor Labor Length Hrs Delivered By Post Complications Tubal Sterilization Discharge Date Comments 9 , miscarria ge Discharge Information Feeding Method Contraceptive Method Maternal HG B and HCT Levels
[2025-06-12 09:42] VITALS: BP 100/73; PULSE 90; RESP 18; TEMP 36.3; O2SAT 98
[2025-06-12 09:55] LABS: EDUAAPPEAR Clear; EDUABILI Negative (Negative); EDUABLOOD Negative (Negative); EDUACOLOR1 Yellow; EDUAGLUCOSE Negative (Negative); EDUAKETONE Negative (Negative); EDUALEUKO Negative (Negative); EDUANITRATE Negative (Negative); EDUAPH 6.0; EDUAPROTEIN Negative (Negative); EDUASPGRAVITY 1.030; EDUAUROBILI 0.2
--- NOTE | 2025-06-12 10:00 | ED_ITS ---
HPI - Female Genitourinary General Chief complaint: Urogenital-Female Stated complaint: UTI or Yeast Infection Source: patient Mode of arrival: ambulatory Limitations: no limitations History of Present Illness HPI Narrative: This is a 29 y/ female patient who reports a 1 week history of vaginal itching, and irritation. She denies any discharge. She denies any rash. She does report that she was supposed to have a a menstrual cycle however she does spotted very lightly for 3 days. She has been off of control since March. She denies any dysuria or frequency. She denies any foul smell. Denies any risk of STDs and is not wanting tested. MD elicited complaint: UTI and genital itching Onset (ago): day(s) (5) Location of symptoms: external genitalia Severity: mild Female Urogenital Radiation: Non-Radiating Severity scale (1-10): 1 Consistency: constant Vaginal discharge: none Vaginal bleeding: none Exacerbating factors: none Relieving factors: none Associated symptoms: denies other symptoms Treatment prior to arrival: other ( Monistat) Sexual activity: Yes Possible : unsure if Date of Last Menstrual Period: 06/05/25 Related Data Home Medications ?Medication ?Instructions ?Recorded ?Confirmed ?Last Taken ?Type clonazepam 0.5 mg tablet 0.5 mg DAILY 06/09/22 Unknown History lisinopril 10 mg tablet mg 03/19/25 Unknown History topiramate 50 mg sprinkle capsule mg PO 03/19/25 Unkn own History Allergies Allergy/AdvReac Type Severity Reaction Status Date / Time No Known Allergies Allergy Verified 06/12/25 09:50 Review of Systems Review of Systems: All systems reviewed & are unremarkable except as noted in HPI and below PMFSH Past Medical History Medical History Anxiety Pseudoseizure Surgical History Surgical History History of appendectomy Social History Social History Smoking status: Never smoker Exam Const: General: healthy appearing Nutritional Appearance: well nourished Orientation/consciousness: patient oriented x3 Limitations: no limitations HENMT: Head: normal to inspection Ears: external ears normal Face/Nose/Sinus: Normal external nose present Face and sinus: normal facial exam Mouth: Yes Normal oral and palatal mucosa present Teeth and gingiva: dentition normal Throat: posterior oropharynx normal Eyes: Conjunctivae: conjunctivae normal Pupils: Equal, round and reactive pupils present Neck: Neck: normal visual inspection Resp: Effort & Inspection: normal respiratory effort Auscultation: clear to auscultation bilaterally Cardio: Rate: regular rate Rhythm: regular rhythm GI: GI Palp: Yes Soft to palpation Auscultation: normal bowel sounds : External Female Exam: normal external appearance Speculum Exam - Vagina: normal appearance of the vagina and normal vaginal discharge Back/Spine/Pelvis: Back: no CVA tenderness Skin: General skin exam: normal color Rashes: no rashes Wounds: no wounds Neuro: General: patient oriented x3 Cranial nerves: Yes Nystagmus not present Speech: normal speech Gait exam (Neuro): Normal gait present Extrem: General: normal to inspection Psych: Appearance: grossly normal Mental Status: mental status grossly normal Affect: normal affect Course Course Emergency Course: This is a 29 y/ female patient who reports a 1 week history of vaginal itching, and irritation. She denies any discharge. She denies any rash. She does report that she was supposed to have a a menstrual cycle however she does spotted very lightly for 3 days. She has been off of control since March. She denies any dysuria or frequency. She denies any foul smell. Denies any risk of STDs and is not wanting tested. has she had patient on urinalysis results and urine negative. Educated patient we will treat her with Diflucan. Educated symptoms continue consider STI testing, she could follow-up with her primary care provider 4 days for further evaluation and exam. Educated her to increase fluids, rest. Pelvic rest avoid any sexual exposure, avoid baths, hot tubs, and swimming at this time. Will culture urine, results should return in 3-4 days. Diflucan as prescribed. Return emergency for any worrisome symptoms, return to the urgent care as needed. Level of Care: Express Care Visit Vital Signs Vital signs: Vital Signs Temperature 97.4 F L 06/12/25 09:42 Pulse Rate 90 06/12/25 09:42 Respiratory Rate 18 06/12/25 09:42 Blood Pressure 100/73 06/12/25 09:42 Pulse Oximetry 98 06/12/25 09:42 Oxygen Delivery Room Air 06/12/25 09:42 Temperature 97.4 F L 06/12/25 09:42 Pulse Rate 90 06/12/25 09:42 Respiratory Rate 18 06/12/25 09:42 Blood Pressure 100/73 06/12/25 09:42 Pulse Oximetry 98 06/12/25 09:42 Oxygen Delivery Room Air 06/12/25 09:42 MDM - Female Genitourinary MDM Narrative Medical decision making narrative: This is a 29 y/ female patient who reports a 1 week history of vaginal itching, and irritation. She denies any discharge. She denies any rash. She does report that she was supposed to have a a menstrual cycle however she does spotted very lightly for 3 days. She has been off of control since March. She denies any dysuria or frequency. She denies any foul smell. Denies any risk of STDs and is not wanting tested. has she had patient on urinalysis results and urine negative. Educated patient we will treat her with Diflucan. Educated symptoms continue consider STI testing, she could follow-up with her primary care provider 4 days for further evaluation and exam. Educated her to increase fluids, rest. Pelvic rest avoid any sexual exposure, avoid baths, hot tubs, and swimming at this time. Will culture urine, results should return in 3-4 days. Diflucan as prescribed. Return emergency for any worrisome symptoms, return to the urgent care as needed. Differential Diagnosis Differential diagnosis: Likely urinary tract infection, bacterial vaginosis, trichomoniasis and vaginitis Medical Records Attestation: I reviewed the patient's medical records. Lab Data Attestation: I reviewed the patient's lab results. Lab results narrative: Urine negative Labs: Lab Results 06/12/25 06/12/25 Range/Units 09:48 10:16 POC Urine Color Yellow POC Urine Clarity Clear POC Urine pH 6.0 POC Ur Specif [place] 1.030 POC Urine Protein Negative (Negative) POC Ur Glucose (UA) Negative (Negative) POC Urine Ketones Negative (Negative) POC Urine Blood Negative (Negative) POC Urine Nitrite Negative (Negative) POC Urine Bilirubin Negative (Negative) POC Urine Urobilinogen 0.2 POC U Leukocyte Esteras Negative (Negative) POC Urine HCG, Qual Negative (Negative) Discharge Plan Discharge Clinical Impression: Vaginitis Qualifiers: Chronicity: acute Qualified Code(s): N76.0 - Acute vaginitis Patient Disposition: Home Condition: Stable Instructions: Antibiotic Form Additional Instructions: If symptoms continue consider STI testing, you can follow-up with her primary care provider 4 days for further evaluation and exam. increase fluids, rest. Pelvic rest avoid any sexual exposure, avoid baths, hot tubs, and swimming at this time. Will culture urine, results should return in 3-4 days. Diflucan as prescribed. Flagyl as prescribed, do not consume alcohol for 7 days. Return emergency for any worrisome symptoms, return to the urgent care as needed. Patient Language: Guinean Prescriptions: New fluconazole 150 mg tablet 150 mg PO DAILY Qty: 3 0RF metronidazole 500 mg tablet 500 mg PO ONCE Qty: 2 0RF No Action albuterol sulfate [Ventolin HFA] 90 mcg/actuation HFA aerosol inhaler 2 puff inhalation QID PRN (Reason: shortness of breath or wheezing) Qty: 8.5 0RF (DME) Murtaza Aerosol Antelope Enhancer Spacer See Rx Instructions .Route Qty: 1 0RF Rx Instructions: As directed lisinopril 10 mg tablet topiramate 50 mg capsule, sprinkle PO clonazepam 0.5 mg tablet 0.5 mg DAILY Follow-up/Referrals: Kandi,Elin Pagan, SUPERVISOR [employer]CR[employer]ING [employer] [Primary Care Provider, Unknown] Time of Disposition: 10:28
[2025-06-12 10:18] LABS: BEDSIDEPREGUCG Negative (Negative)
== END 2025-06-12 10:32 | disposition home or self-care (01) ==
PROVIDERS: Emergency Provider Nurse Practitioner Family
DX: N76.0 Acute vaginitis (principal); F41.9 Anxiety disorder, unspecified
CPT/HCPCS: 81003; 81025; 87086; 99213; G0463

== ENCOUNTER 2025-07-15 11:28 | Emergency (ER) | payer OTHER, SELFPAY ==
--- OUTSIDE RECORDS SUMMARY | 2024-12-17 08:40 | XMS_ITS ---
Author Organization [facility] Address [address] [place] [address] Phone [phone] Care Team Providers Care Gyn Physician Name Role Phone Sally Matamoros Primary Care Provider [phone] Sharyn ALCANTARA Soha Unavailable [phone] REASON FOR VISIT 3 Week F/U Medications Medication SIG (Take, Route, Frequency, Duration) Notes Start Date End Date Diagnosis (ICD Code) Status hydroCHLOROthiazide 25 MG Tablet 1 tablet in the morning Orally Once a day Unknown LORazepam 0.5 MG Tablet 2-3 tablets Orally per day; Duration: 21 days As needed Generalized anxiety disorder (ICD_10 - F41.1) Active Topiramate 25 MG Tablet TAKE 1 TABLET BY MOUTH ONCE A DAY FOR 30 DAYS; Duration: 10 days Active Social History Sex Observation Social History Observation Description Sex Observation Female Encounters Date Time Type Facility Location Provider Diagnosis 12/17/2024 08:40 AM Office Visit [facility] [address] [place] [address] Sally Matamoros Plan Of Treatment Next Appt Details Provider Name:Sally brink, 07/20/2025 02:00:00 PM, [address] [place], [address], Medical (General) History Medical History History ICD Code Anxiety Bipolar disorder Major depressive disorder, single episod e, unspecified F32.9 Seizures R56.9 Surgical History Surgery Date(Month/Year) 01/2017 appendectomy Hospitalization History Reason Date(Month/Year) Seizure hospitalization at [facility] 10/05/24 Progress Notes * Elizabeth LIMDOB:1995 (29 yo F)Acc No.[id number]:12/17/2024 UNLOCKED PROGRESS NOTE Patient: Elizabeth PEDERSON Provider: Ana Matamoros MSN, FINISHER PLATE, SKIVER WELT END-C :1995 A ge:29 Y S ex:Female Date:12/17/2024 Address:[address] [place], [place] [id number] Subjective: * Chief Complaints: * 1 . 3 Week F/U. * Screening: * * Medical History: * Medications: T aking [...] * Electronic signature of Remi Matamoros , [id number] on 07/15/2025 at 11:45 AM CABIN AGENT Sign off status: Pending * Provider: Ana Matamoros MSN, FINISHER PLATE, SKIVER WELT END-C Date: 0 12/17/2024 Generated for Jameson flynn/Eileen/eTransmitting on: 1 11:45 AM CABIN AGENT
--- OUTSIDE RECORDS SUMMARY | 2025-04-15 09:00 | XMS_ITS ---
Author Organization [facility] Address [address] [place] [address] Phone [phone] Care Team Providers Care Steel Rule Die Maker Name Role Phone SaturninoSally hollins Primary Care Provider [phone] Soha Coles APRN Unavailable Results Component Value Reference Range Notes 14 Panel Urine Drug Screen Order date: 04/15/2025 Reviewed date:04/16/2025 10:53:39 AM Interpretation:Abnormal Performing Lab: Notes/Report: Abnormal THC pos KIRT neg MOP (OPI) neg AMP neg MET neg BAR neg BZO neg MDMA neg MTD neg OXY neg PCP neg BUP neg TCA neg FTY neg REASON FOR VISIT UDS Medications Medication SIG (Take, Route, Frequency, Duration) Notes Start Date End Date Diagnosis (ICD Code) Status Topiramate 50 MG Capsule Sprinkle 1 capsule Orally daily; Duration: 30 days Bipolar affectiv e disorder (ICD_10 - F31.9) Active clonazePAM 0.5 MG Tablet 1 tablet Orally twice a day; Duration: 30 days As needed 01/15/2025 Generalized anxiety disorder (ICD_10 - F41.1) Active Social History Sex Observation Social History Observation Description Sex Observation Female Encounters Date Time Type Facility Location Provider Diagnosis 09:00 AM [address] [place] [address] Sally Matamoros Cannabis use disorder F12.90 Assessments Encounter Date Diagnosis (ICD Code) Assessment Notes Treat ment Notes Section Notes 04/15/2025 Cannabis use disorde r (ICD-10 - F12.90) Plan Of Treatment Next Appt Details Provider Name:Sally brink, 07/20/2025 02:00:00 PM, [address], [place], [address], Medical (General) History Medical History History ICD Code Anxiety Bipolar disorder Major depressive disorder, single episod e, unspecified F32.9 Seizures R56.9 Surgical History Surgery Date(Month/Year) 01/2017 appendectomy Hospitalization History Reason Date(Month/Year) Seizure hospitalization at [facility] 10/05/24 Progress Notes * Elizabeth LIMDOB:1995 (29 yo F)Acc No.[id number]:04/15/2025 UNLOCKED PROGRESS NOTE Patient: Elizabeth PEDERSON Provider: Ana Matamoros, MSN, BLASTING COAL MINER, TELECOM FIELD TECHNICIAN-C :1995 A ge:29 Y S ex:Female Date:04/15/2025 Address:[address] [place], [place] [id number] Subjective: * Chief Complaints: * 1 . UDS. * Screening: * * Medical History: * [...] * Electronic signature of Remi Matamoros , [id number] on 07/15/2025 at 11:45 AM LURE MAKER Sign off status: Pending * Provider: Ana Matamoros, MSN, BLASTING COAL MINER, TELECOM FIELD TECHNICIAN-C Date: 1 Generated for Jameson flynn/Eileen/Mattitting on: 11:45 AM LURE MAKER
--- NOTE | 2025-07-15 11:31 | ED.FEMALEGU ---
HPI - Female Genitourinary General Chief complaint: Urogenital-Female Stated complaint: UTI Time Seen by Provider: 07/15/25 11:30 Source: patient Mode of arrival: ambulatory Limitations: no limitations History of Present Illness HPI Narrative: patient is a 29-year-old female presents with 1 day of burning with urination, suprapubic pressure, frequency and decreased output. Patient is newly and has OB appointment in a week. Has taken Tylenol. Denies any fever, chills, nausea, vomiting, diarrhea, low back pain MD elicited complaint: dysuria Related Data Allergies Allergy/AdvReac Type Severity Reaction Status Date / Time No Known Allergies Allergy Verified 07/15/25 11:35 Review of Systems Review of Systems: All systems reviewed & are unremarkable except as noted in HPI and below Constitutional: Constitutional: Denies chills, Denies fever(s), Denies headache(s), Denies malaise and Denies weakness Eyes: Eyes: Denies change in vision, Denies eye discharge and Denies irritation ENT: Denies otalgia, Denies headache(s), Denies nasal congestion, Denies nasal discharge, Denies sinus pain and Denies sore throat Cardiovascular: Cardiovascular: Denies chest pain, Denies edema, Denies palpitations and Denies dyspnea Respiratory: Respiratory: Denies cough and Denies dyspnea Gastrointestinal: Gastrointestinal: Denies abdominal pain, Denies diarrhea, Denies nausea and Denies vomiting Genitourinary: Genitourinary: Denies hematuria, Reports nocturia, Reports dysuria, Denies flank pain and Reports urinary urgency Musculoskeletal: Musculoskeletal: Denies back pain and Denies numbness Integumentary/Breasts: Skin/Breast: Denies pruritus and Denies rash Neurologic: Denies headache(s), Denies numbness and Denies weakness Psychiatric: Psychiatric: Reports no additional psychiatric complaints Endocrine: Endocrine: Denies palpitations PMFSH Past Medical History Medical History Anxiety Pseudoseizure Surgical History Surgical History History of appendectomy Social History Social History Smoking status: Never smoker Comments At time of signature, agree with nursing past medical, surgical, social and family history. There is no relevant family history pertinent to the presenting complaint. Exam Const: General: cooperative, healthy appearing, comfortable, no acute distress and well nourished Nutritional Appearance: well nourished Orientation/consciousness: patient oriented x3 HENMT: Head: normocephalic and atraumatic Ears: external ears normal Face/Nose/Sinus: Normal external nose present, Normal nares present and normal facial exam Face and sinus: normal facial exam Eyes: General: appearance normal, both eyes and all related structures Pupils: Equal, round and reactive pupils present EOM: EOMs intact bilaterally Neck: Neck: normal visual inspection, full ROM and supple Chest: Chest palpation & inspection: normal inspection of the chest Resp: Effort & Inspection: normal respiratory effort and able to speak in complete sentences Cardio: Rate: regular rate Rhythm: regular rhythm GI: Inspection: normal to inspection GI Palp: No abdominal tenderness and Yes Soft to palpation : General: Yes no CVA tenderness Back/Spine/Pelvis: Back: no CVA tenderness Skin: General skin exam: normal color and no rashes or lesions noted Neuro: General: patient oriented x3 and moves all extremities Cranial nerves: Yes Equal, round and reactive pupils present Extrem: General: normal to inspection and full ROM Psych: Appearance: grossly normal and well kempt Course Course Emergency Course: Patient is aware of diagnosis, understands and agrees to treatment plan. Anticipatory guidance given. Patient agrees to follow-up as directed and is aware of reasons to seek care at the emergency department. Portions of this record may have been created with voice recognition software Level of Care: Express Care Visit Vital Signs Vital signs: Vital Signs Temperature 36.6 C 07/15/25 11:36 Pulse Rate 68 07/15/25 11:36 Respiratory Rate 16 07/15/25 11:36 Blood Pressure 134/90 07/15/25 11:36 Pulse Oximetry 100 07/15/25 11:36 Oxygen Delivery Room Air 07/15/25 11:36 Temperature 36.6 C 07/15/25 11:36 Pulse Rate 68 07/15/25 11:36 Respiratory Rate 16 07/15/25 11:36 Blood Pressure 134/90 07/15/25 11:36 Pulse Oximetry 100 07/15/25 11:36 Oxygen Delivery Room Air 07/15/25 11:36 MDM MDM Narrative Medical decision making narrative: Based on symptoms and positive point of care UA, patient will be treated with antibiotics. Pt well hydrated appearing, in no respiratory distress, hemodynamically stable. Recommend supportive care. The patient is stable at time of discharge the clinical impression was discussed and the patient was given the opportunity to ask questions, which were addressed as completely as possible given the information available at present. Anticipatory guidance and return to care precautions were discussed and the importance of primary care follow-up was stressed and encouraged. The patient voiced understanding of the plan, indications to return, and the need for follow-up. Exam findings show no acute concerns or changes Patient is appropriate for outpatient treatment and follow-up. Differential Diagnosis Differential Diagnosis: Differential diagnostic considerations for female urogenital? issues include urinary tract infection, bacterial vaginosis, cervicitis, ovarian cyst, vaginitis, STI exposure, ovarian torsion, ectopic , cyst of Bartholin?s gland, cystitis, dysmenorrhea.?? Medical Records I have reviewed the following patient records and this information was taken into consideration when formulating the assessment and plan.: previous clinic visits Lab Data [facility] Lab Attestation statement: I personally reviewed the patient's lab results. Labs: Lab Results 07/15/25 Range/Units 11:43 POC Urine Color Dark POC Urine Clarity Cloudy POC Urine pH 7.0 POC Ur Specif [place] 1.025 POC Urine Protein Negative (Negative) POC Ur Glucose (UA) Negative (Negative) POC Urine Ketones Negative (Negative) POC Urine Blood Trace (Negative) POC Urine Nitrite Negative (Negative) POC Urine Bilirubin Negative (Negative) POC Urine Urobilinogen 0.2 POC U Leukocyte Esteras 1+ (Negative) Discharge Plan Discharge Clinical Impression: Urinary tract infection Qualifiers: Urinary tract infection type: acute cystitis Hematuria presence: without hematuria Qualified Code(s): N30.00 - Acute cystitis without hematuria Patient Disposition: Home Condition: Stable Instructions: Urinary Tract Infection in (ED) Additional Instructions: We will send a urine culture to the lab, based on your symptoms and urine dip we will start treatment today. If culture comes back and bacteria is not susceptible to antibiotic, your prescription may change. Your symptoms should improve within a day of starting antibiotics, but you should finish all the antibiotic pills you get. Otherwise your infection might come back Continue with increased water intake. Take Tylenol or ibuprofen as needed for pain or fever. Follow-up with primary care provider for urine recheck or see ER visit if condition worsens with high fever, nausea, vomiting, severe back pain Patient Language: Irish Prescriptions: New cephalexin 500 mg capsule 500 mg PO QID 7 Days Qty: 28 0RF phenazopyridine [Pyridium] 200 mg tablet 200 mg PO TID 3 Days Qty: 9 0RF Follow-up/Referrals: Kandi,Elin Pagan, AWARD CLERK [Primary Care Provider, Unknown] - 3 Days Time of Disposition: 11:55
[2025-07-15 11:36] VITALS: BP 134/90; PULSE 68; RESP 16; TEMP 36.6; O2SAT 100
--- OUTSIDE RECORDS SUMMARY | 2025-07-15 11:45 | XMS_ITS | Clinical Summary ---
Author Organization [facility] Address [address] [place] [address] Care Team Providers Care Cryptographic Center Specialist Name Role Phone Unknown, Notinfile Primary Care [...] 06/02/2024 Assessment & Plan (06/02/2024 11:51 AM SACK KEEPER): No papilledema on multiple exams, HVF and [...] on file Legal Sex Female 4:24 AM SACK KEEPER Gender Identity Not on file Sexual Orientation Not on file Last Filed Vital Signs Vital Sign Reading Time Taken Comments Blood Pressure 128/95 05/28/2024 3:31 PM SACK KEEPER Pulse 70 05/28/2024 3:31 PM SACK KEEPER Temperature 36.7 C (98.1 F) 05/28/2024 11:51 AM SACK KEEPER Respiratory Rate 16 05/28/2024 3:31 PM SACK KEEPER Oxygen Saturation 99% 05/28/2024 3:31 PM SACK KEEPER Inhaled Oxygen Concentration - - Weight 104.3 kg (229 lb 15 oz) 05/28/2024 11:51 AM SACK KEEPER Height 165.1 cm (5' 5) 05/28/2024 11:51 AM SACK KEEPER Body Mass Index 38.26 05/28/2024 11:51 AM SACK KEEPER Plan of Treatment Health Maintenance Due Date [...] 03/04/2001 Varicella Vaccines Completed 01/27/2009, 06/02/1999 Insurance [facility] IDPA Care Teams Cryptographic Center Specialist Relationship Specialty Start Date End Date Unknown, Notinfile PCP - General 05/22/24
--- OUTSIDE RECORDS SUMMARY | 2025-07-15 11:45 | XMS_ITS | Encounter Summary ---
Author Organization [facility] Address [facility] [place] [address] Care Team Providers Care Child Welfare Counselor Name Role Phone Airam Daniel NP Primary Care Provider Unav ailable Won Faustin MD Primary Care Provider [phone] Elin Chau NP Primary Care Provider [phone] Encounter Details Date Type Department Care Team (Late st Contact Info) Description 01/21/2021 PeopleLinxt Message Enc [facility] Medical Group Family & Internal Medicine [address] [phone] Airam Daniel NP RE: Question [...] Care Team (Late st Contact Info) Description 07/27/2025 2:20 PM GROCERY SPECIALIST Office Visit [facility] Medical Group Orthopedic & Sports Medicine - [place] [address] [place] [address] Jermain Simeon MD [address] [place] [address] 10/26/2025 1:20 PM CDT Office Visit [facility] Medical Group Multispecialty Care - [address], [address] [place] [address] Gildardo Chao MD [address] [place] [address] documented as of this encounter Visit Diagnoses Not on filedocumented in this encounter Additional Health Concerns Infection Onset Date Last Indicated Resolved Time COVID-19 Rule Out 06/07/2021 06/07/2021 06/07/2021 11:27 AM GROCERY SPECIALIST COVID-19 Confirmed 06/07/2021 06/07/2021 12:32 AM GROCERY SPECIALIST COVID-19 Rule Out 08/07/2023 08/07/2023 08/07/2023 9:37 AM GROCERY SPECIALIST Influenza - Seasonal 08/07/2023 08/07/2023 024 12:33 AM GROCERY SPECIALIST COVID-19 Rule Out 08/07/2023 08/07/2023 08/07/2023 12:46 PM GROCERY SPECIALIST Respiratory Rule Out 11/23/2024 11/23/2024 025 7:34 PM CDT COVID-19 Rule Out 11/23/2024 11/23/2024 11/23/2024 7:33 PM CDT documented as of this encounter Care Teams Child Welfare Counselor Relationship Specialty Start Date End Date Airam Daniel NP PCP - General NURSE PRACTITIONER 03/19/20 05/16/21 [place] [address] [place] [address] PCP - General FAMILY PRACTICE 05/17/21 03/18/24 Elin Chau NP [address] [place] [phone] PCP - General NURSE PRACTITIONER 03/19/24 documented as of this encounter
--- OUTSIDE RECORDS SUMMARY | 2025-07-15 11:45 | XMS_ITS | Clinical Summary ---
Author Organization [facility] Address [address] [place] [address] Care Team Providers Care Data Technician Name Role Phone Unavailable Primary Care Provider Unavailabl e Source Comments [facility],non-owned Affiliates and Associated Physician Practices is amultiple site organization consisting of ambulatory clinics and hospital sitesin [place], [place], [place] and [place]. This disclosure is being madepursuant to the Care Everywhere program and may not contain all information available regarding this patient. Last updated 18.[facility] [employer] Allergies No known active allergies Medications * [...] on file Legal Sex Female 5:38 AM PIPE STRESS ENGINEER Gender Identity Not on file Sexual Orientation [...] patient's age to complete this topic Insurance [facility]
--- OUTSIDE RECORDS SUMMARY | 2025-07-15 11:45 | XMS_ITS | Encounter Summary ---
Author Organization [facility] Address [facility] [place] [address] Care Team Providers Care Director Of Dementia Operations Name Role Phone Airam Daniel NP Primary Care Provider Unav ailable Won Faustin MD Primary Care Provider [phone] Elin Chau NP Primary Care Provider [phone] Encounter Details Date Type Department Care Team (Late st Contact Info) Description 11/24/2020 Zuset Message Enc [facility] Medical Group Family & Internal Medicine [address] [address] Airam Daniel NP RE: Medication [...] st Contact Info) Description 07/27/2025 2:20 PM COOLING PIPE INSPECTOR Office Visit [facility] Medical Group Orthopedic & Sports Medicine - [place] [address] [place], [place] [phone] Jeramin Simeon MD [address] [place], [place] [phone]- 10/26/2025 1:20 PM CDT Office Visit [facility] Multispecialty Care - [address], [address] [place] [phone] Gildardo Chao MD [address] [place] [address] documented as of this encounter Visit Diagnoses Not on filedocumented in this encounter Additional Health Concerns Infection Onset Date Last Indicated Resolved Time COVID-19 Rule Out 06/07/2021 06/07/2021 06/07/2021 11:27 AM COOLING PIPE INSPECTOR COVID-19 Confirmed 06/07/2021 06/07/2021 12:32 AM COOLING PIPE INSPECTOR COVID-19 Rule Out 08/07/2023 08/07/2023 08/07/2023 9:37 AM COOLING PIPE INSPECTOR Influenza - Seasonal 08/07/2023 08/07/2023 024 12:33 AM COOLING PIPE INSPECTOR COVID-19 Rule Out 08/07/2023 08/07/2023 08/07/2023 12:46 PM COOLING PIPE INSPECTOR Respiratory Rule Out 11/23/2024 11/23/2024 025 7:34 PM CDT COVID-19 Rule Out 11/23/2024 11/23/2024 11/23/2024 7:33 PM CDT documented as of this encounter Care Teams Director Of Dementia Operations Relationship Specialty Start Date End Date Airam Daniel NP PCP - General NURSE PRACTITIONER 03/19/20 05/16/21 [place] [address] [place] [address] PCP - General FAMILY PRACTICE 05/17/21 03/18/24 Elin Chau NP [address] [place] [phone] PCP - General NURSE PRACTITIONER 03/19/24 documented as of this encounter
--- OUTSIDE RECORDS SUMMARY | 2025-07-15 11:45 | XMS_ITS | Encounter Summary ---
Author Organization [facility] Address Formerly [facility] [place] [address] Care Team Providers Care Air And Water Filler Name Role Phone Won Faustin MD Primary Care Provider [phone] Elin Chau NP Primary Care Provider [phone] Encounter Details Date Type Department Care Team ([facility] Contact Info) Description 06/07/2021 Continuus Pharmaceuticalst Message Enc [facility] Family & Internal Medicine [facility] [id number] [place] [phone] Won Faustin MD [address] [place] [phone] Medication refill Social History Tobacco Use [...] Coronavirus / COVID-19? Yes 06/07/2021 10:32 AM FARM PRODUCTS SHIPPER documented as of this encounter Functional Status [...] st Contact Info) Description 07/27/2025 2:20 PM FARM PRODUCTS SHIPPER Office Visit [facility] Orthopedic & Sports Medicine - [place] [address] [place] [address] Jermain Simeon MD [address] [place] [address] 10/26/2025 1:20 PM CDT Office Visit [facility] Medical [facility] Multispecialty Care - [address], [address] [place] [address] Gildardo Chao MD [address] [place] [address] documented as of this encounter Visit Diagnoses Not on filedocumented in this encounter Additional Health Concerns Infection Onset Date Last Indicated Resolved Time COVID-19 Rule Out 06/07/2021 06/07/2021 06/07/2021 11:27 AM FARM PRODUCTS SHIPPER COVID-19 Confirmed 06/07/2021 06/07/2021 12:32 AM FARM PRODUCTS SHIPPER COVID-19 Rule Out 08/07/2023 08/07/2023 08/07/2023 9:37 AM FARM PRODUCTS SHIPPER Influenza - Seasonal 08/07/2023 08/07/2023 024 12:33 AM FARM PRODUCTS SHIPPER COVID-19 Rule Out 08/07/2023 08/07/2023 08/07/2023 12:46 PM FARM PRODUCTS SHIPPER Respiratory Rule Out 11/23/2024 11/23/2024 025 7:34 PM CDT COVID-19 Rule Out 11/23/2024 11/23/2024 11/23/2024 7:33 PM CDT documented as of this encounter Care Teams Air And Water Filler Relationship Specialty [place] [address] [place] [address] PCP - General FAMILY PRACTICE 05/17/21 03/18/24 Elin Chau NP [address] [place] [phone] PCP - General NURSE PRACTITIONER 03/19/24 documented as of this encounter
--- OUTSIDE RECORDS SUMMARY | 2025-07-15 11:45 | XMS_ITS | Encounter Summary ---
Author Organization [facility] Address [facility] [place] [address] Care Team Providers Care Dentofacial Orthopedics Dentist Name Role Phone Lakshmi Flor MD Primary Care Provider Unavailab Airam Weinstein MECHANICAL MAINTENANCE TECHNICIAN Primary Care Provider Unav ailable Won Faustin MD Primary Care Provider [phone] Elin Chau MECHANICAL MAINTENANCE TECHNICIAN Primary Care Provider [phone] Encounter Details Date Type Department Care Team (Late st Contact Info) Description 02/11/2020 Hospital Orders Only [facility] One Day Services [address] [place] [address] Prema Jc DO [address] [place] [address] Social History Tobacco Use Types [...] st Contact Info) Description 07/27/2025 2:20 PM ASBESTOS TEXTILE SUPERVISOR Office Visit [facility] Medical [facility] Orthopedic & Sports Medicine - [place] [address] [place] [address] Jermain Simeon MD [address] [place] [address] 10/26/2025 1:20 PM CDT Office Visit [facility] Multispecialty Care - [facility] [address] [facility], [address] [place] [phone] Gildardo Chao MD [address] [place] [address] documented as of this encounter Visit Diagnoses Diagnosis ([facility])- Primary state, incidental documented in this encounter Additional Health Concerns Infection Onset Date Last Indicated Resolved Time COVID-19 Rule Out 06/07/2021 06/07/2021 06/07/2021 11:27 AM ASBESTOS TEXTILE SUPERVISOR COVID-19 Confirmed 06/07/2021 06/07/2021 12:32 AM ASBESTOS TEXTILE SUPERVISOR COVID-19 Rule Out 08/07/2023 08/07/2023 08/07/2023 9:37 AM ASBESTOS TEXTILE SUPERVISOR Influenza - Seasonal 08/07/2023 08/07/2023 024 12:33 AM ASBESTOS TEXTILE SUPERVISOR COVID-19 Rule Out 08/07/2023 08/07/2023 08/07/2023 12:46 PM ASBESTOS TEXTILE SUPERVISOR Respiratory Rule Out 11/23/2024 11/23/2024 025 7:34 PM CDT COVID-19 Rule Out 11/23/2024 11/23/2024 11/23/2024 7:33 PM CDT documented as of this encounter Care Teams Dentofacial Orthopedics Dentist Relationship Specialty Start Date End Date Lakshmi Flor MD PCP - General INTERNAL MEDICINE 09/27/17 03/18/20 Airam Daniel NP PCP - General NURSE PRACTITIONER 03/19/20 05/16/21 [place] [address] [facility] [place] [address] PCP - General FAMILY PRACTICE 05/17/21 03/18/24 Elin Chau NP [address] [place] [address] PCP - General NURSE PRACTITIONER 03/19/24 documented as of this encounter
--- OUTSIDE RECORDS SUMMARY | 2025-07-15 11:45 | XMS_ITS | Clinical Summary ---
Author Organization [facility] Address [address] [place] [address] Care Team Providers Care Supervisor Cd Area Name Role Phone Kandi Waterflow RIGOBERTO Primary Care Provider [phone] Allergies Active Allergy Reactions Criticality Noted Date Comments Cariprazine Seizure Medium 11/03/2024 Vraylar Medications LORazepam (ATIVAN) 0.5 MG tablet Take 1 tablet (0.5 mg total) by mouth 3 (three) times daily. 5 Active topiramate (TOPAMAX) 25 MG tablet Take 2 tablets (50 mg total) by mouth daily. Active lisinopril (PRINIVIL) 10 MG tablet Take 1 tablet (10 mg total) by mouth daily. Active topiramate (TOPAMAX) 50 MG TabIndications:Migr jacqui without aura, not intractable, without status migrainosus Take 1 tablet (50 mg total) by mouth daily. 30 tablet 11 5 Active clonazePAM (KLONOPIN) 0.5 MG tablet Take 1 tablet (0.5 mg total) by mouth every 12 (twelve) hours. 5 Active atogepant (QULIPTA) tabletIndications:M igraine without aura, not intractable, without status migrainosus Take 1 tablet (60 mg total) by mouth daily. 30 tablet 11 5 Active ondansetron (ZOFRAN-ODT) 4 MG disintegrating tablet Take 1 tablet (4 mg total) by mouth every 8 (eight) hours as needed for Nausea. 20 tablet 5 Active dicyclomine (BENTYL) 20 MG tablet Take 1 tablet (20 mg total) by mouth every 6 (six) hours. 20 tablet 5 Active Active Problems Problem Noted Date Diagnosed Date Pelvic pain 08/12/2021 04/08/2020 Acute left ankle pain 03/10/2019 Acute cystitis without hematuria 02/27/2019 Assessment & Plan (02/27/2019 9:27 AM CDT): Positive dip stick. Will treat with nitrofurantoin. Will call if not sensitive and need to change. Otherwise she will call if no improvement Chronic tension-type headache, not intractable 1 07/27/2017 Assessment & Plan (05/27/2018 12:57 PM BOTTOMER OPERATOR): Suspect some medication over use contributing. She is already on topamax Stop taking tylenol and drinking caffeine and may have worsening fo headache for next 48 hrs but then should improve Osteochondral defect of ankle 10/03/2017 Essential hypertension 03/12/2017 Assessment & Plan (05/27/2018 12:58 PM BOTTOMER OPERATOR): Currently controlled off HCTZ. Check BP at home and call if > 140/100 consistently Depression 07/05/2016 Overview (05/11/2018): Description: Soha Marshall is her psychiatrist. Assessment & Plan (05/27/2018 12:58 PM BOTTOMER OPERATOR): Stable. Managed by psychiatrist Psychogenic nonepileptic seizure 07/05/2016 Syncope 01/23/2013 Anxiety Encounters Date Type Department Care Team Description 06/19/2025 2:18 PM BOTTOMER OPERATOR - 06/19/2025 4:54 PM BOTTOMER OPERATOR Emergency [facility] Emergency Room [address] [place] [address] Erik Gillette MD Vomiting Discharge Disposition: Home or Self Care (Routine Discharge) 06/19/2025 Travel 05/18/2025 1:20 PM BOTTOMER OPERATOR Office Visit [facility] Multispecialty Care - [address] [place] [phone] Gildardo Chao MD Follow Up (Migraine without aura, not intractable, without status migrainosus) 05/18/2025 Travel 04/16/2025 Telephone [facility] Orthopedic & Sports Medicine - [place] [address] [place] [address] Jermain Simeon MD Appointment Request; Returned Call from Last 3 Months Immunizations Immunization Administration [...] Sign Reading Time Taken Comments Blood Pressure 96/62 06/19/2025 4:33 PM BOTTOMER OPERATOR Pulse 62 06/19/2025 4:33 PM BOTTOMER OPERATOR Temperature 36.3 C (97.4 F) 06/19/2025 4:33 PM BOTTOMER OPERATOR Respiratory Rate 16 06/19/2025 4:33 PM BOTTOMER OPERATOR Oxygen Saturation 100% 06/19/2025 4:33 PM BOTTOMER OPERATOR Inhaled Oxygen Concentration - - Weight 86.2 kg (190 lb) 06/19/2025 2:24 PM BOTTOMER OPERATOR Height 167.6 cm (5' 6) 06/19/2025 2:24 PM BOTTOMER OPERATOR Body Mass Index 30.67 06/19/2025 2:24 PM BOTTOMER OPERATOR Plan of Treatment Upcoming Encounters Date Type Department Care Team (Late st Contact Info) Description 07/27/2025 2:20 PM BOTTOMER OPERATOR Office Visit [facility] Orthopedic & Sports Medicine - [place] [address] [place] [address] Jermain Simeon MD [address] [place] [address] 10/26/2025 1:20 PM CDT Office Visit [facility] Multispecialty Care - [address], [address] [place] [address] Gildardo Chao MD [address] [place] [address] Health Maintenance Due Date Last Done Comments Annual Physical 2000 Hepatitis C 11/10/2015 Cervical Cancer Screening Pap Smear (Age 21 to 29) Every 3 Years 09/04/2022 09/04/2019 Cervical Cancer Screening 09/04/2022 HPV Vaccines (1 - 3-dose SCDM series) 2024 COVID-19 Vaccine ( season) 2025 Influenza Adult (#1) 2025 04/03/2017, 07/05/2016, 08/01/2013, Additional history exists DTaP, Tdap and Td Vaccines (10 - Td or Tdap) 02/10/2030 02/11/2020, 11/16/2016, 02/02/2013, Additional history exists Hepatitis B Vaccines Completed 08/18/1998, 1997, 1997 Pneumococcal Vaccine: Pediatrics (0 to 5 Years) and At-Risk Patients (6 to 49 Years) Aged Out 03/04/2001 No longer eligible based on patient's age to complete this topic Hepatitis A Vaccines Completed 12/26/2011, 01/26/20 09 Meningococcal Vaccine Completed 07/28/2014, 009 PHQ-2 (Physician [place]) Completed 11/03/2024 Meningococcal B Vaccine Aged Out No l onger eligible based on patient's age to complete this topic RSV Immunizations Under 20 Months Aged Out No longer eligible based on patient's age to complete this topic Medical Devices Implanted Type Area Business Editor Device Identifier Shelf Expiration Date Model / Serial / Lot Implant System Internalbrace Ligament [employer] - [id number] Implanted:Qty: 1 on 02/28/2018 by Jermain Simeon MD at [facility] Left: Ankle [employer] 10/14/2019 [id number] / / [id number] Biocomposite Suture [place], [place],Short Dx Implanted:Qty: 2 on 02/28/2018 by Jermain Simeon MD at [facility] Left: Ankle [employer] 06/14/2018 [id number] / / [id number] Procedures Procedure Name Priority Date/Time Associated Diagnosis Comments LIPASE STAT 06/19/2025 3:21 PM BOTTOMER OPERATOR COMPREHENSIVE METABOLIC PANEL STAT 06/19/2025 3:21 PM BOTTOMER OPERATOR HC CBC AUTO W/AUTO DIFF STAT 06/19/2025 3:21 PM BOTTOMER OPERATOR TEST URINE STAT 06/19/2025 3:20 PM BOTTOMER OPERATOR URINALYSIS, AUTO, COMPLETE STAT 06/19/2025 3:20 PM BOTTOMER OPERATOR OUTSIDE CYTOPATH CERV/VAG INTERPRET (PAP) (SCAN ORDER) 09/04/2019 from Last 3 Months or Most Recently Relevant to Health Maintenance Results * LIPASE (06/19/2025 3:21 PM BOTTOMER OPERATOR) LIPASE 26 16 - 77 UNITS/L 06/19/2025 3:51 PM BOTTOMER OPERATOR [facility] BLOOD VENOUS BLOOD SPECIMEN / Unknown 06/19/2025 3:21 PM BOTTOMER OPERATOR Erik Gillette MD LABORATORY Final Result [facility] [address] [place] [address], * (ABNORMAL) COMPREHENSIVE METABOLIC PANEL (06/19/2025 3:21 PM BOTTOMER OPERATOR) GLUCOSE 86 70 - 99 MG/DL 06/19/2025 3:51 PM BOTTOMER OPERATOR [facility] BUN 12 7 - 18 MG/DL 06/19/2025 3:51 PM BOTTOMER OPERATOR [facility] CREATININE S/P/B 0.89 0.55 - 1.02 MG/DL 06/19/2025 3:51 PM [facility] SODIUM S/P/B 139 136 - 145 MMOL/L 06/19/2025 3:51 PM [facility] POTASSIUM S/P/B 4.1 3.5 - 5.1 MMOL/L 06/19/2025 3:51 PM [facility] CHLORIDE S/P/B 105 100 - 108 MMOL/L 06/19/2025 3:51 PM [facility] CO2 26.4 21 - 32 MMOL/L 06/19/2025 3:51 PM [facility] CALCIUM S/P/B 8.7 8.5 - 10.1 MG/DL 06/19/2025 3:51 PM [facility] BILIRUBIN TOTAL S/P/B 1.9(H) 0.2 - 1.2 MG/DL 06/19/2025 3:51 PM [facility] TOTAL PROTEIN S/P/B 7.5 6.4 - 8.2 G/DL 06/19/2025 3:51 PM [facility] ALBUMIN S/P/B 4.3 3.4 - 5.0 G/DL 06/19/2025 3:51 PM [facility] AST 15 15 - 37 U/L 06/19/2025 3:51 PM [facility] ALT 31 14 - 55 U/L 06/19/2025 3:51 PM [facility] ALKALINE PHOSPHATASE S/P/B 80 50 - 136 U/L 06/19/2025 3:51 PM [facility] ANION GAP 7.6 5 - 15 MMOL/L 06/19/2025 3:51 PM [facility] BUN CREATININE RATIO 13.5 6 - 26 06/19/2025 3:51 PM [facility] A/G RATIO 1.3 1.0 - 2.0 RATIO 06/19/2025 3:51 PM [facility] GFR ESTIMATE >90 >90 ML/MIN/1.7 3 M2 06/19/2025 3:51 PM [facility] Comment: NOTE: eGFR is not calculated for patients <18 years of age. This is an estimated GFR calculation using the new CKD EPI creatinine equation without race and so does not require a correction factor for race. This estimated GFR should not be used for calculating drug doses. BLOOD VENOUS BLOOD SPECIMEN / Unknown 06/19/2025 3:21 PM BOTTOMER OPERATOR Erik Gillette MD LABORATORY Final Result [facility] [address] [place] [address], * (ABNORMAL) CBC W/DIFF AUTOMATED (06/19/2025 3:21 PM BOTTOMER OPERATOR) WBC 6.89 4.4 - 11.0 x10'3/uL 06/19/2025 3:44 PM [facility] RBC 4.79 4.50 - 5.10 x10'6/uL 06/19/2025 3:44 PM [facility] HGB 14.7 12.3 - 15.3 G/DL 06/19/2025 3:44 PM [facility] HCT 42.4 35.9 - 44.6 % 06/19/2025 3:44 PM [facility] MCV 88.5 80.0 - 96.0 FL 06/19/2025 3:44 PM [facility] MCH 30.7 25.3 - 30.9 PG 06/19/2025 3:44 PM [facility] MCHC 34.7(H) 31.0 - 34.1 G/DL 06/19/2025 3:44 PM [facility] RDW 11.6(L) 12.4 - 15.1 % 06/19/2025 3:44 PM [facility] PLT 235 151 - 353 x10'3/uL 06/19/2025 3:44 PM [facility] MPV 9.3(L) 9.6 - 12.0 FL 06/19/2025 3:44 PM [facility] RBC MORPHOLOGY NORMAL 06/19/2025 3:44 PM [facility] PLT MORPH. NORMAL 06/19/2025 3:44 PM [facility] WBC MORPHOLOGY NORMAL 06/19/2025 3:44 PM [facility] LYMPHOCYTES % 10.6(L) 15.8 - 45.0 % 06/19/2025 3:44 PM [facility] NEUTROPHILS % 84.0(H) 42.1 - 71.9 % 06/19/2025 3:44 PM [facility] MONOCYTES % 4.4(L) 5.7 - 12.5 % 06/19/2025 3:44 PM [facility] EOSINOPHILS 0.4 0.0 - 5.6 % 06/19/2025 3:44 PM [facility] BASOPHILS 0.3 0.0 - 1.3 % 06/19/2025 3:44 PM [facility] ABS. NEUTROPHILS 5.79 1.40 - 6.00 x10'3/uL 06/19/2025 3:44 PM [facility] IMMATURE GRANS % 0.3 0.0 - 0.5 % 06/19/2025 3:44 PM [facility] ABS. LYMPHOCYTES 0.73(L) 0.80 - 4.70 x10'3/uL 06/19/2025 3:44 PM BOTTOMER OPERATOR [facility] BLOOD VENOUS BLOOD SPECIMEN / Unknown 06/19/2025 3:21 PM BOTTOMER OPERATOR Erik Gillette MD LABORATORY Final Result [facility] [address] [place] [address], * URINALYSIS, AUTO, COMPLETE (06/19/2025 3:20 PM BOTTOMER OPERATOR) COLOR (U) DARK YELLOW 06/19/2025 3:50 PM [facility] TRANSPARENCY HAZY 06/19/2025 3:50 PM BOTTOMER OPERATOR [facility] SPECIFIC GRAVITY (U) 1.025 1.000 - 1.030 06/19/2025 3:50 PM [facility] U PH 6.0 5.0 - 9.0 06/19/2025 3:50 PM [facility] LEUKOCYTES (U) NEGATIVE NEGATIVE 06/19/2025 3:50 PM [facility] NITRITES NEGATIVE NEGATIVE 06/19/2025 3:50 PM [facility] PROTEIN RANDOM (U) NEGATIVE NEGATIVE 06/19/2025 3:50 PM [facility] GLUCOSE (U) NEGATIVE NEGATIVE 06/19/2025 3:50 PM [facility] KETONES MG/DL (U) NEGATIVE NEGATIVE 06/19/2025 3:50 PM [facility] BILIRUBIN (U) NEGATIVE NEGATIVE 06/19/2025 3:50 PM [facility] BLOOD (U) NEGATIVE NEGATIVE 06/19/2025 3:50 PM [facility] WBC/HPF NONE SEEN 0 - 5 /HPF 06/19/2025 3:50 PM BOTTOMER OPERATOR [facility] RBC/HPF 0-5 0 - 5 /HPF 06/19/2025 3:50 PM BOTTOMER OPERATOR [facility] EPI/HPF FEW /HPF 06/19/2025 3:50 PM BOTTOMER OPERATOR [facility] URINE WAY FEW 06/19/2025 3:50 PM BOTTOMER OPERATOR [facility] Comment:MUCOUS URINE URINE SPECIMEN OBTAINED BY CLEAN CATCH PROCEDURE / Unknown 06/19/2025 3:20 PM BOTTOMER OPERATOR Erik Gillette MD URINE ORDERABLES Final Result Performing Organization Address City/[facility]/ZIP Co de Phone Number [facility] [address] [place] [address], [place] [phone] * TEST URINE (06/19/2025 3:20 PM BOTTOMER OPERATOR) URINE HCG TEST NEGATIVE NEGATIVE 06/19/2025 3:40 PM BOTTOMER OPERATOR [facility] Comment: VERY DILUTE URINE SPECIMENS MAY NOT CONTAIN STEAM STATION SUPERVISOR LEVELS OF HCG. IF IS STILL SUSPECTED, A SERUM HCG TEST IS RECOMMENDED. URINE URINE SPECIMEN FROM [employer] / Unknown 06/19/2025 3:20 PM BOTTOMER OPERATOR Erik Gillette MD URINE ORDERABLES Final Result [facility] [address] [place] [address], [place] [phone] * PAP SMEAR (09/04/2019) 09/04/2019 Narrative 09/04/2019 Ordered by an unspecified provider. us Documents Scanned SCANNING Final Result from Last 3 Months or Most Recently Relevant to Health Maintenance Insurance [place] [employer] Advance Directives * Full Code (Latest Code Status on File) Date Activated Date Inactivated Comments 04/08/2020 2:09 PM 04/11/2020 12:11 AM * Full Code Date Activated Date Inactivated Comments 04/01/2020 2:08 PM 04/01/2020 5:39 PM * Full Code Date Activated Date Inactivated Comments 03/01/2020 3:01 PM 03/01/2020 5:35 PM Care Teams Supervisor Cd Area Relationship Specialty Start Date End Date Elin Chau NP [address] [place] [phone] PCP - General NURSE PRACTITIONER 03/19/24
--- OUTSIDE RECORDS SUMMARY | 2025-07-15 11:45 | XMS_ITS | Encounter Summary ---
Author Organization [facility] Address [address] [place] [address] Care Team Providers Care Learning Development Specialist Name Role Phone Won Faustin MD Primary Care Provider [phone] Elin Chau NP Primary Care Provider [phone] Encounter Details Date Type Department Care Team (Late st Contact Info) Description 08/12/2021 Therapy Plan [facility] One Day Services [address] [place], [place] [phone] [place]one Lowery [place] [address] [place], [place] [address] Social History Tobacco Use Types Packs/Day Years [...] COVID-19? No / Unsure 08/12/2021 2:05 PM APPAREL STOCK CHECKER documented as of this encounter Functional Status [...] st Contact Info) Description 07/27/2025 2:20 PM APPAREL STOCK CHECKER Office Visit [facility] Orthopedic & Sports Medicine - [place] [address] [place] [address] Jermain Simeon MD [address] [place] [address] 10/26/2025 1:20 PM CDT Office Visit [facility] Multispecialty Care - [address], [address] [place] [address] Gildardo Chao MD [address] [place] [address] documented as of this encounter Visit Diagnoses Diagnosis Pelvic pain- Primary documented in this encounter Additional Health Concerns Infection Onset Date Last Indicated Resolved Time COVID-19 Rule Out 08/07/2023 08/07/2023 08/07/2023 9:37 AM APPAREL STOCK CHECKER Influenza - Seasonal 08/07/2023 08/07/2023 024 12:33 AM APPAREL STOCK CHECKER COVID-19 Rule Out 08/07/2023 08/07/2023 08/07/2023 12:46 PM APPAREL STOCK CHECKER Respiratory Rule Out 11/23/2024 11/23/2024 025 7:34 PM CDT COVID-19 Rule Out 11/23/2024 11/23/2024 11/23/2024 7:33 PM CDT documented as of this encounter Care Teams Learning Development Specialist Relationship Specialty Start [place] [address] [place] [address] PCP - General FAMILY PRACTICE 05/17/21 03/18/24 Elin Chau NP [address] [place] [address] PCP - General NURSE PRACTITIONER 03/19/24 documented as of this encounter
--- OUTSIDE RECORDS SUMMARY | 2025-07-15 11:45 | XMS_ITS | Patient Health Record ---
Author Organization [facility] Address [address] [place] [address] Phone [phone] Care Team Providers Care Material Reprocessing Associate Name Role Phone Sally Matamoros Primary Care Provider [phone] Soha Coles APRN Unavailable [phone] Yanira Pineda Unavailable [phone] Latisha Palacios Unavailable [phone] Allergies Allergen (clinical drug ingredient) Drug/Non Drug Allergy documented on EMR Reaction Allergy Type Onset Date Status cariprazine Vraylar nausea and vomiting Drug Allergy Active Results Component Value Reference Range Notes Comprehensive Drug Analysis, Urine Order date: 04/15/2025 Reviewed date:04/27/2025 03:44:13 PM Interpretation:Normal Performing Lab:[facility], [address] [facility], Phone - [phone], Director - Davis Notes/Report: Summary Report (Summary) FINAL COMPREHENSIVE DRUG [...] test is not intended to distinguish between xfcdw-4-qwuumvcqwlnxvhuivkpz, the predominant form of THC in most herbal or marijuana-based products, and icojd-0-zzpxtlahonqkvnvtewbl. Topiramate PRESENT Acetaminophen PRESENT Test Result Flag Units Ref Range Creatinine 53 mg/dL >=20 For clinical consultation, please call . PDF . PDF Report Order date: 04/15/2025 Reviewed date:04/27/2025 03:44:13 PM Interpretation: Performing Lab:[facility], [address] [facility], Phone - [phone], Director - Davis Notes/Report: PDF Report1 LCLS 14 Panel Urine Drug Screen Order date: 04/15/2025 Reviewed date:04/16/2025 10:53:39 AM Interpretation:Abnormal Performing Lab: Notes/Report: Abnormal THC pos KIRT neg MOP (OPI) neg AMP neg MET neg BAR neg BZO neg MDMA neg MTD neg OXY neg PCP neg BUP neg TCA neg FTY neg Reason For Referral Addressed Referral details can be found under 'Consultation Request Notes' section Medications Medication SIG (Take, Route, Frequency, Duration) Notes Start Date End Date Diagnosis (ICD Code) Status Lisinopril 20 MG Tablet 1 tablet Orally Once a day Active Qulipta HAS NOT STARTED YET WORKING ON PA WITH PCP Active Topiramate 25 MG Capsule Sprinkle 1 capsule Orally daily; Duration: 30 days (75mg total) 05/25/2025 Bipolar affective disorder (ICD_10 - F31.9) Active clonazePAM 0.5 MG Tablet 1 tablet Orally twice a day; Duration: 30 days As needed 05/25/2025 Generalized anxiety disorder (ICD_10 - F41.1) Active Topiramate 50 MG Capsule Sprinkle 1 capsule Orally daily; Duration: 30 days Bipolar affective disorder (ICD_10 - F31.9) Active Social History Tobacco Use: Social History Observation Description Date Details (start date - stop date) Never Smoker NA - NA Sex Observation Social History Observation Description Sex Observation Female SDOH Assessments Date Tool Assessment Assessment LOINC Value Assessment Notes Goals Interventions 10/31/19 25 PRAPARE (LOINC: 97791-9) Total Score: 6 Date Completed/Upda teri: 10/30/19 25 What is your current housing situation? 71426-7 I have housing (YB13297-3) Are you worried about losing your housing? 14215-5 No (LA32-8) What is the highest level of school that you have finished? 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 Check all that apply 79667-1 I do not have problems meeting my needs Has lack of transportation k ept you from medical appointments, meetings, work or from getting things needed for daily living? 64175-9 No (LA32-8) How often do you see or talk to people that you care about and feel close to? (For example: talking to friends on the phone, visiting friends or family, going to catholic or club meetings) 04876-1 More than 5 times a week (GB34701-2) How stressed are you? Stress is when someone feels tense, nervous, anxious, or can\t sleep at night because their mind is troubled 74257-5 Somewhat (BE46826-9) In the past year have you sp ent more than 2 nights in a row in a custodial, fci, mcfp center, or juvenile correctional facility? 20404-1 No (LA32-8) Do you feel physically and emotionally safe where you currently live? 67653-6 Yes (LA33-6) In the past year, have you b een afraid of your partner or ex-partner? 47516-6 No (LA32-8) PRAPARE Score: 6 Social History Social Determinants Social Info Question Answer Notes PRAPARE Date Completed/Updated: 10/29/2024 What is your current housing situation? I have h ousing Are you worried about losing your housing? No What is the highest level of school that you have finished? 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 Stress is when someone feels tense, nervous, anxious, or can\t sleep at night because their mind is troubled Somewhat In the past year have you sp ent more than 2 nights in a row in a custodial, fci, mcfp center, or juvenile correctional facility? No Do you feel physically and e motionally safe where you currently live? Yes In the past year, have you b een afraid of your partner or ex-partner? No PRAPARE Score: 6 Miscellaneous Social Info Question Answer Notes Method of learning: Preferred method of learning: Disc ussion Primary Social History Social Info Question Answer Notes Living Arrangement Living Arrangement: Independent Shaunna ing Is this a supportive environment? Yes Tobacco Use - do not use Tobacco Use: vap es daily Single Question Alcohol Screening How many times in the past year have you had (4 for women, or 5 for men) or more drinks in a day? 0 Employment Status Employment Status: Employed Full G[employer] e Illicit Substance Usage Illicit Substance Usage: Yes Substance Used: Cannabis Interested in quitting: No Alcohol Use Alcohol Use Frequency: Never Drugs/Alcohol: Social Info Question Answer Notes Drugs Have you used drugs other than those for medical reasons in the past 12 months? No Tobacco Use: Social Info Question Answer Notes Dont use, Tobacco Use/Smoking Are you a Uses tobacco in other forms Tobacco Control (Standard) Tobacco use: Nonsmoker Additional Details Category Social Info Options Details Past Medication Use Do you use nicotine other than cigarettes? No Miscellaneous Marital status: single Occupation: Works part-time Living with: mother Drugs/Alcohol: Do you smoke marijuana? De nies Do you drink alcohol? No Problems Problem Type SNOMED Code ICD Code Dates Problem Status W/U Status Risk Notes Problem Morbid obesity (disorder) (528200706) Morbid (severe) obesity due to excess calories (E66.01) Added On:2017 Active confirmed Problem Generalized anxiety disorder (49300002) Generalized anxiety disorder (F41.1) Added On:2021 Active confirmed Problem Tobacco dependence (09717302) Tobacco dependence (F17.200) Added On:2021 Active confirmed Problem Anxiety (85870508) Anxiety (F41.9) Added On:2015 Active confirmed Problem Bipolar affective disorder (12756394) Bipolar affective disorder (F31.9) Added On:2021 Active confirmed Problem Depressive disorder (34074574) Depressive disorder (F32.9) Added On:2016 Active confirmed Problem Posttraumatic stress disorder (24476806) Chronic post-traumatic stress disorder (PTSD) (F43.12) Added On:2021 Active confirmed Problem Overweight (154421180) Over weight (E66.3) Added On:2024 Active confirmed Problem Obesity (722155949) Obesity (BMI 30-39.9) (E66.9) Added On:2017 Active confirmed Problem Sleep disturbance (21949074) Sleep disturbance, unspecified (G47.9) Added On:2021 Active confirmed Problem Body mass index 40+ - severely obese (688623713) Body mass index (BMI) of 40.0-44.9 in adult (Z68.41) Added On:2017 Active confirmed Vital Signs Vital Sign Value Notes Appt Date Heart Rate 99 /min 05/25/2025 Temperature 97.9 degrees Fahrenheit 05/16 Respiratory Rate 16 /min 05/25/2025 Blood pressure diastolic 84 mm Hg 04/2025 Oximetry 100 % 05/25/2025 Height 66 inches in 05/25/2025 Blood pressure systolic 122 mm Hg 05/16 Weight 200 lbs lbs 05/25/2025 BMI 32.28 kg/m2 05/25/2025 Encounters Date Time Type Facility Location Provider Diagnosis 04/15/20 09:00 AM Office Visit [address] [place] [address] Sally Matamoros Cannabis use disorder F12.90 08/13/19 10:20 AM Telehealth Office Visit, Est Pt., Level 4 (40401) [address] [place] [address] Sally Matamoros Bipolar affective disorder F31.9 ; Generalized anxiety disorder F41.1 ; Chronic post-traumatic stress disorder (PTSD) F43.12 ; Sleep disturbance, unspecified G47.9 ; Cannabis use disorder F12.90 and Medication monitoring encounter Z51.81 09/03/19 25 08:40 AM Telehealth Office Visit, Est Pt., Level 4 (36520) [address] [place] [address] Sally Matamoros Bipolar affective disorder F31.9 ; Generalized anxiety disorder F41.1 ; Chronic post-traumatic stress disorder (PTSD) F43.12 ; Sleep disturbance, unspecified G47.9 ; Cannabis use disorder F12.90 and Medication monitoring encounter Z51.81 10/02/19 08:40 AM Telehealth Office Visit, Est Pt., Level 4 (06760) [address] [address] Sally Matamoros Bipolar affective disorder F31.9 ; Generalized anxiety disorder F41.1 ; Chronic post-traumatic stress disorder (PTSD) F43.12 ; Sleep disturbance, unspecified G47.9 ; Cannabis use disorder F12.90 and Medication monitoring encounter Z51.81 10/08/19 25 09:00 AM Office Visit, Est Pt., Level 4 (56402) [place] [address] [place] [address] Sally Matamoros Bipolar affective disorder F31.9 ; Generalized anxiety disorder F41.1 ; Chronic post-traumatic stress disorder (PTSD) F43.12 ; Sleep disturbance, unspecified G47.9 ; Cannabis use disorder F12.90 and Medication monitoring encounter Z51.81 10/16/19 25 01:40 PM Office Visit [address] [address] Latisha Palacios Anxiety F41.9 10/22/19 01:00 PM Telehealth Office Visit, Est Pt., Level 4 (91861) [place] [address] [place] [address] Sally Matamoros Bipolar affective disorder F31.9 ; Generalized anxiety disorder F41.1 ; Chronic post-traumatic stress disorder (PTSD) F43.12 ; Sleep disturbance, unspecified G47.9 ; Cannabis use disorder F12.90 and Medication monitoring encounter Z51.81 11/05/19 25 12:00 PM Telehealth Office Visit, Est Pt., Level 4 (50714) [place] [address] [place] [address] Sally Matamoros Bipolar affective disorder F31.9 ; Generalized anxiety disorder F41.1 ; Chronic post-traumatic stress disorder (PTSD) F43.12 ; Sleep disturbance, unspecified G47.9 ; Cannabis use disorder F12.90 and Medication monitoring encounter Z51.81 12/26/19 25 10:20 AM Telehealth Office Visit, Est Pt., Level 4 (90993) [address] [address] Sally Matamoros Bipolar affective disorder F31.9 ; Generalized anxiety disorder F41.1 ; Chronic post-traumatic stress disorder (PTSD) F43.12 ; Sleep disturbance, unspecified G47.9 ; Cannabis use disorder F12.90 and Medication monitoring encounter Z51.81 01/16/20 25 01:00 PM Office Visit, Est Pt., Level 4 (52627) [address] [address] Sally Matamoros Bipolar affective disorder F31.9 ; Generalized anxiety disorder F41.1 ; Chronic post-traumatic stress disorder (PTSD) F43.12 ; Sleep disturbance, unspecified G47.9 ; Cannabis use disorder F12.90 and Medication monitoring encounter Z51.81 05/12/20 25 09:20 AM Office Visit [facility] [address] [place] [address] Sally Matamoros Over weight E66.3 05/25/20 25 01:40 PM BODY MASS INDEX DOCD (3008F) [address] [address] Sally Matamoros Bipolar affective disorder F31.9 ; Generalized anxiety disorder F41.1 ; Chronic post-traumatic stress disorder (PTSD) F43.12 ; Sleep disturbance, unspecified G47.9 ; Cannabis use disorder F12.90 ; Over weight E66.3 and Medication monitoring encounter Z51.81 07/14/20 25 10:58 AM Telephone Encounter [address] [address] Sally Matamoros 08/13/19 25 12:37 PM Telephone Encounter [facility] [address] [address] Sally Matamoros 08/14/19 08:25 AM Telephone Encounter [facility] [address] [place] [address] Sally Matamoros 08/14/19 25 02:06 PM Telephone Encounter [facility] [address] [place] [address] Yanira Edwin 08/26/19 25 09:48 AM Telephone Encounter [address] [place] [address] Sally Matamoros Bipolar affective disorder F31.9 10/02/19 25 08:07 AM Telephone Encounter [address] [place] [address] Sally Matamoros 10/02/19 25 10:02 AM Telephone Encounter [address] [place] [address] Sally Matamoros 10/02/19 25 12:41 PM Telephone Encounter [address] [place] [address] Sally Matamoros 10/11/19 25 12:27 PM Telephone Encounter [facility] [address] [place] [address] Sally Matamoros 10/14/19 25 09:27 AM Telephone Encounter [address] [place] [address] Sally Matamoros 10/16/19 25 02:38 PM Telephone Encounter [address] [place] [address] Sally Matamoros 10/17/19 25 09:27 AM Telephone Encounter [address] [place] [address] Sally Matamoros 10/31/19 25 10:59 AM Telephone Encounter [address] [place] [address] Sally Matamoros 12/19/19 25 12:13 PM Telephone Encounter [address] [place] [address] Sally Matamoros Generalized anxiety disorder F41.1 12/26/19 25 11:21 AM Telephone Encounter [facility] [address] [place] [address] Sally Matamoros 04/14/20 25 09:32 AM Telephone Encounter [address] [address] Sally Matamoros Medication monitoring encounter Z51.81 and Anxiety F41.9 04/24/20 25 10:01 AM Telephone Encounter [address] [address] Sally Matamoros Generalized anxiety disorder F41.1 and Bipolar affective disorder F31.9 04/27/20 25 11:21 AM Telephone Encounter [address] [address] Sally Matamoros 05/15/20 25 08:23 AM Telephone Encounter [facility] [address] [place] [address] Sally Matamoros 10/18/19 25 07:50 AM Web Encounter [address] [address] Sally Matamoros 11/12/19 25 08:44 AM Web Encounter [address] [address] Sally Matamoros Bipolar affective disorder F31.9 12/08/19 25 09:08 PM Web Encounter [address] [address] Sally Matamoros 12/08/19 25 09:08 PM Web Encounter [address] [address] Sally Matamoros Generalized anxiety disorder F41.1 Assessments Encounter Date Diagnosis (ICD Code) Assessment Notes Treatment Notes Section Notes 08/13/2024 Bipolar affective disorder (ICD-10 - F31.9) Start lithium. Take as prescribed. Discussed uses for bipolar depression with SI. Reviewed risks associated like toxicity and water intake, cardiovascular changes. Educated on monitoring weight, kidney function and therapeutic blood trough levels. [facility]: Have lithium level drawn after taking prescribed dose for 7 consecutive days. Do NOT take your lithium until the blood has been collected. You may take your other medications as usual. 08/26/2024 Bipolar affective disorder (ICD-10 - F31.9) 09/03/2024 Bipolar affective disorder (ICD-10 - F31.9) Recent labwork at 0.3 level- Increase lithium. Take as prescribed. Discussed uses for bipolar depression with SI. Reviewed risks associated like toxicity and water intake, cardiovascular changes. Educated on monitoring weight, kidney function and therapeutic blood trough levels. [facility]: Have lithium level drawn after taking prescribed dose for 7 consecutive days. Do NOT take your lithium until the blood has been collected. You may take your other medications as usual. 10/01/2024 Bipolar affective disorder (ICD-10 - F31.9) Will request hospital records, decreasing dose and monitoring, get lab Sunday morning to keep close eye on levels. Labs to 10/07/2024 Bipolar affective disorder (ICD-10 - F31.9) 10/15/2024 Anxiety (ICD-10 - F41.9) 10/21/2024 Bipolar affective disorder (ICD-10 - F31.9) Start Depakote/Valproic Acid. Take as prescribed. Purpose - promote mood stability. Reviewed side effects, including sedation, dose-dependent tremor, dizziness, ataxia, asthenia, headache abdominal pain, GI distress, and alopecia. Rarely can cause liver or pancreas dysfunction/failure. Wean lithium- discussed in length. 11/04/2024 Bipolar affective disorder (ICD-10 - F31.9) Increase Depakote/Valproic Acid. Take as prescribed. Purpose - promote mood stability. Reviewed side effects, including sedation, dose-dependent tremor, dizziness, ataxia, asthenia, headache abdominal pain, GI distress, and alopecia. Rarely can cause liver or pancreas dysfunction/failure. Labs in 1 week. [facility] weaned, stop today. 11/11/2024 Bipolar affective disorder (ICD-10 - F31.9) 12/07/2024 Generalized anxiety disorder (ICD-10 - F41.1) 12/18/2024 Generalized anxiety disorder (ICD-10 - F41.1) 12/25/2024 Bipolar affective disorder (ICD-10 - F31.9) Increase 2 days ago by neuro, continue at this dose. Discussed CBT for PNES (nonepileptic seizures) 01/15/2025 Bipolar affective disorder (ICD-10 - F31.9) Increased by neuro, states doing well/stable, continue at this dose. Discussed CBT for PNES (nonepileptic seizures) 04/14/2025 Anxiety (ICD-10 - F41.9) 04/14/2025 Medication [...] endocrine. Discussed CBT for PNES (nonepileptic seizures). 05/25/2025 Generalized anxiety disorder (ICD-10 - F41.1) [...] use Sat. PDMP checked without concerns 08/13/2024 Chronic post-traumatic [...] unspecified (ICD-10 - G47.9) Discouraged caffeine intake. 05/25/2025 Sleep disturbance, unspecified (ICD-10 - G47.9) [...] 09/03/2024 Medication monitoring encounter (ICD-10 - Z51.81) 08/13/2024 [...] up. This session was completed telephonically with client/parental/guardian consent: Unable to determine movement status, assess [...] up. This session was completed telephonically with client/parental/guardian consent: Unable to determine movement status, assess [...] up. This session was completed telephonically with client/parental/guardian consent: Unable to determine movement status, assess [...] treatment plan and follow up. 10/15/2024 Other Clerical Support met with client via telehealth to discuss referral. The policy writer sales encouraged and engaged in critical thinking of [...] up. This session was completed telephonically with client/parental/guardian consent: Unable to determine movement status, assess [...] up. This session was completed telephonically with client/parental/guardian consent: Unable to determine movement status, assess [...] up. This session was completed telephonically with client/parental/guardian consent: Unable to determine movement status, assess [...] up. This session was completed telephonically with client/parental/guardian consent: Unable to determine movement status, assess [...] plan and follow up. Plan Of Treatment Next Appt Details Provider Name:Sally Garcialadonna brink, 07/20/2025 02:00:00 PM, [address] [facility] [address], [place], [address], Insurance Providers Payer Name Payer Address Payer Phone Subscriber Number Group Number Insured Name Patient Relationship to Insured Coverage Start Date Coverage End Date [employer] [address] [place] [phone] [id number] Elizabeth Lim Self - patient is the insured 2 [address] [place] [address] [id number] Elizabeth Lim Self - patient is the insured 5 [facility] Attn Claims Department [address] [place] [id number] Elizabeth Lim Self - patient is the insured 6 1 [facility] Attn Claims Department [address] [place] [phone] [id number] Elizabeth Lim Self - patient is the insured 2 1 [facility] [address] [place] [phone] [id number] Elizabeth Lim Self - patient is the insured 2 5 [facility] FIELD ADMINISTRATOR [address] [place] [address] [id number] Elizabeth Lim Self - patient is the insured 5 5 Medical (General) History Medical History History ICD Code Anxiety Bipolar disorder Major depressive disorder, single episod e, unspecified F32.9 Seizures R56.9 Surgical History Surgery Date(Month/Year) 01/2017 appendectomy Hospitalization History Reason Date(Month/Year) Seizure hospitalization at [facility] 10/05/24
--- OUTSIDE RECORDS SUMMARY | 2025-07-15 11:45 | XMS_ITS | Encounter Summary ---
Author Organization [facility] Address [facility] [place] [address] Care Team Providers Care Mail Messenger Contractor Name Role Phone Airam Daniel NP Primary Care Provider Unav ailable Won Faustin MD Primary Care Provider [phone] Eiln Chau NP Primary Care Provider [phone] Encounter Details Date Type Department Care Team (Late st Contact Info) Description 11/28/2020 Sionext Message Enc [facility] Family & Internal Medicine [address] [address] Airam Daniel NP RE: Question [...] st Contact Info) Description 07/27/2025 2:20 PM DRILLING PLANT OPERATOR Office Visit [facility] [place] [address] [place] [address] Jermain Simeon MD [address] [place] [address] 10/26/2025 1:20 PM CDT Office Visit [facility] [address] [facility], [address] [place] [address] Gildardo Chao MD [address] [place] [address] documented as of this encounter Visit Diagnoses Not on filedocumented in this encounter Additional Health Concerns Infection Onset Date Last Indicated Resolved Time COVID-19 Rule Out 06/07/2021 06/07/2021 06/07/2021 11:27 AM DRILLING PLANT OPERATOR COVID-19 Confirmed 06/07/2021 06/07/2021 12:32 AM DRILLING PLANT OPERATOR COVID-19 Rule Out 08/07/2023 08/07/2023 08/07/2023 9:37 AM DRILLING PLANT OPERATOR Influenza - Seasonal 08/07/2023 08/07/2023 024 12:33 AM DRILLING PLANT OPERATOR COVID-19 Rule Out 08/07/2023 08/07/2023 08/07/2023 12:46 PM DRILLING PLANT OPERATOR Respiratory Rule Out 11/23/2024 11/23/2024 025 7:34 PM CDT COVID-19 Rule Out 11/23/2024 11/23/2024 11/23/2024 7:33 PM CDT documented as of this encounter Care Teams Mail Messenger Contractor Relationship Specialty Start Date End Date Airam Daniel NP PCP - General NURSE PRACTITIONER 03/19/20 05/16/21 [place] [address] [place] [address] PCP - General FAMILY PRACTICE 05/17/21 03/18/24 Elin Chau NP [address] [place] [address] PCP - General NURSE PRACTITIONER 03/19/24 documented as of this encounter
--- OUTSIDE RECORDS SUMMARY | 2025-07-15 11:45 | XMS_ITS | Encounter Summary ---
Author Organization [facility] Address [facility] [place] [address] Care Team Providers Care Electro Winning Operator Name Role Phone Airam Daniel NP Primary Care Provider Unav ailable Won Faustin MD Primary Care Provider [phone] Elin Chau NP Primary Care Provider [phone] Encounter Details Date Type Department Care Team (Late st Contact Info) Description 02/15/2021 One on One Marketing[employer] Message Enc [facility] Family & Internal Medicine [address] [address] Airam Daniel NP RE: Question [...] st Contact Info) Description 07/27/2025 2:20 PM TERMINAL SYSTEM OPERATOR Office Visit [facility] Orthopedic & Sports Medicine - [place] [address] [place] [address] Jermain Simeon MD [address] [place] [address] 10/26/2025 1:20 PM CDT Office Visit [facility] Multispecialty Care - [facility] [address] [facility], [address] [place] [address] Gildardo Chao MD [address] [place] [address] documented as of this encounter Visit Diagnoses Not on filedocumented in this encounter Additional Health Concerns Infection Onset Date Last Indicated Resolved Time COVID-19 Rule Out 06/07/2021 06/07/2021 06/07/2021 11:27 AM TERMINAL SYSTEM OPERATOR COVID-19 Confirmed 06/07/2021 06/07/2021 12:32 AM TERMINAL SYSTEM OPERATOR COVID-19 Rule Out 08/07/2023 08/07/2023 08/07/2023 9:37 AM TERMINAL SYSTEM OPERATOR Influenza - Seasonal 08/07/2023 08/07/2023 024 12:33 AM TERMINAL SYSTEM OPERATOR COVID-19 Rule Out 08/07/2023 08/07/2023 08/07/2023 12:46 PM TERMINAL SYSTEM OPERATOR Respiratory Rule Out 11/23/2024 11/23/2024 025 7:34 PM CDT COVID-19 Rule Out 11/23/2024 11/23/2024 11/23/2024 7:33 PM CDT documented as of this encounter Care Teams Electro Winning Operator Relationship Specialty Start Date End Date Airam Daniel NP PCP - General NURSE PRACTITIONER 03/19/20 05/16/21 [place] [address] [place] [address] PCP - General FAMILY PRACTICE 05/17/21 03/18/24 Elin Chau NP [address] [place] [phone] PCP - General NURSE PRACTITIONER 03/19/24 documented as of this encounter
--- OUTSIDE RECORDS SUMMARY | 2025-07-15 11:46 | XMS_ITS | Data Portability ---
Author Organization [id number] Address [address] [place] [address] Assessment No assessment recorded. Plan of Treatment Reminders Order Date Submit Date Provider Last Modified By Organization Details Last Modified Time Details Appointments New OB - MA Phone 30 (SO) 2025 10:15A M [id number] EREN Not available Not available Not available NEW OB EST PT 30 2025 11:15A M CLARA DELEONDIOMEDES DO Not available Not available Not available Lab pregnan cy test, urine 2024 025 [id number] [address], [address], [place], [address], 03/11/2025 15:55:10 Referral None recorde d. Procedures None recorde d. Surgeries None recorde d. Imaging None recorde d. Medication Orders None recorde d. Patient TargetsNo targets recorded. Patient InstructionsNo instructions recorded. Reason for Referral None Reported. Results Created Date Observation Date Name Description Value Unit Range Abnormal Flag Note LastModifiedBy Organization Detail LastModifiedTime 03/11/2003/11/2025 pregn jeffery test, urine HCG negati ve Not Available [id number] [address], [place], [address], 03/11/2025 15:54:48 Result Notes None recorded. Problems Name Problem SNOMED Code Status Onset Date Resolution Date Notes Provider Name and Address Organization Details Recorded Time Bipolar disorder 17354465 Active Bipolar, Problem Code: 296.80; Problem Code Type: ICD-9; Startdate: ; Not Available [facility] 12:55:22 Epilepsy 84613809 Active Seizure Disorder, non epileptic Problem Code: 345.90; Problem Code Type: ICD-9; Not Available [facility] 12:55:22 Disorder of breast 41762075 Active 2024 Mushtaq Dunham [facility] 15:14:09 Pain of breast 92924682 Active 2024 HALEY CALDERON [address], [place], [address] , [facility] 15:52:48 Amenorrhea 39312391 Active 2024 HALEY CALDERON [address], [place], [address] , [facility] 15:54:45 Problem Notes None recorded. Procedures Surgical History Date Name Laterality Status Provider Name and Address Organization Details Recorded Time 03/11/20 25 IUD Removal Procedure Note ([facility]) completed HALEY CALDERON [address], [place], [address], [facility] 03/11/2025 15:52:17 Appendectomy completed Not Available [facility] h 11/13/2024 14:51:40 delivery only completed Not Available [facility] 11/13/2024 14:51:40 tonsillectomy completed Not Available [facility] 11/13/2024 14:51:40 introduction of Mirena coil completed Not Available [facility] 11/13/2024 14:51:40 Imaging Results None recorded. Procedure [...] Available Not Available Not Available amoxicillin 875 mg-alyasiu m clavulanate 125 mg tablet TAKE 1 [...] Updated DateTime 03/11/2025 165.1 cm 32 kg/m2 66240.74 g 124/72 mm[Hg] Mushtaq Dunham [facility] 03/11/2025 15:15:27 Social History Question Answer Notes LastModified by Organizat ion Details LastModified Time Tobacco Smoking Status Current Every Day Smoker Qty: vape Not Available [facility] 11/13/2024 16:01:46 How Many Times Per Week [...] adolescent or pediatric 8 completed Not Available [facility] 05/20/2025 11:19:41 Hep B, adolescent or pediatric 8 completed Not Available [facility] 05/20/2025 11:19:41 DTaP 8 completed Not Available [facility] 05/20/2025 11:19:41 Hib, unspecified formulation 8 completed Not Available [facility] 05/20/2025 11:19:41 IPV 8 completed Not Available [facility] 05/20/2025 11:19:41 IPV 8 completed Not Available [facility] 05/20/2025 11:19:41 DTaP 8 completed Not Available [facility] 05/20/2025 11:19:41 Hib (PRP-OMP) 8 completed Not Available [facility] 05/20/2025 11:19:41 Hep B, adolescent or pediatric 9 completed Not Available [facility] 05/20/2025 11:19:41 MMR 9 completed Not Available [facility] 05/20/2025 11:19:41 varicella 9 completed Not Available [facility] 05/20/2025 11:19:41 DTaP 1 completed [facility] Available [facility] 05/20/2025 11:19:41 IPV 1 completed Not Available [facility] 05/20/2025 11:19:41 pneumococcal conjugate PCV 7 1 completed Not Available [facility] 05/20/2025 11:19:41 DTaP 2 completed Not Available [facility] 05/20/2025 11:19:41 MMR 3 completed Not Available [facility] 05/20/2025 11:19:41 IPV 3 completed Not Available [facility] 05/20/2025 11:19:41 Hep A, pediatric, unspecified formulation 9 completed Not Available [facility] 05/20/2025 11:19:41 meningococcal C conjugate 9 completed Not Available [facility] 05/20/2025 11:19:41 DTaP 9 completed Not Available [facility] 05/20/2025 11:19:41 Tdap 9 completed Not Available [facility] 05/20/2025 11:19:41 varicella 9 completed Not Available [facility] 05/20/2025 11:19:41 Hep A, ped/adol, 2 dose 2 completed Not Available [facility] 05/20/2025 11:19:41 Influenza, split virus, trivalent, PF 3 completed Not Available [facility] 05/20/2025 11:19:41 influenza, unspecified formulation 4 completed Not Available [facility] 05/20/2025 11:19:41 meningococcal MCV4P 5 completed Not Available [facility] 05/20/2025 11:19:41 Influenza, split virus, quadrivalent, PF 6 completed Not Available [facility] 05/20/2025 11:19:41 Tdap 7 completed Not Available [facility] 05/20/2025 11:19:41 Influenza, split virus, quadrivalent, PF 7 completed Not Available [facility] 05/20/2025 11:19:41 Tdap 0 completed Not Available [facility] 05/20/2025 11:19:41 Past Encounters Encounter ID Performer Location Encounter Start Date Encounter Closed Date Diagnosis/Indication Diagnosis SNOMED-CT Code Diagnosis ICD10 Code Diagnosis IMO Codes Diagnosis Note [id number] CLAYTON ROSS MD [id number] [facility] [address] [facility] [place] [address] 03/11/2025 14:49:29 03/11/2025 15:46:25 Pain of breast 80729407 N64.4 41830 03/11/25-if breast pain does not resolve in the next 1-2 weeks-call office and I will order US Removal of intrauterine contraceptive device 1465536666 Z30.933 [id number] 03/11/25-mi alejandro removed today-awar e she needs to use condoms or other method of contracept emma from today if she wants to prevent - does not want any contracept jack at this time but will think about starting something in the next few weeks Amenorrhea 46335258 N91. 2 23452 03/11/25-no t Health Concerns Section Related Observation LastModified by Organization Detai ls LastModified Time None Recorded Concern Status LastModified by Organization Details LastModified Time None Recorded Advance Directives Directive None Recorded Payers Insurance Date Sequence Insurance Name Policy Number Policy Lange Covered Member ID Lange Member ID Guarantor Name 05/20/2025 2 [place]MENT [place] Elizabeth Lim [id number] Elizabeth Lim 07/13/2025 1 [facility] (MEDICAID HMO) [id number] Elizabeth Lim [id number] Elizabeth Lim Notes Date Note Type Note [...] taken test. believes sx are from mirena. -[facility] HALEY Jacome SEVERINO WHNP [address], [place], [address], [facility] 03/11/2025 15:55:14 OBGyn Episode Ob Episode Information Episode Created Date Number of Fetuses Patient Bloodtype Patient rh Status Prepregnancy Weight lbs Domestic Partner Domestic Partner Phone Father Name Drug Safety Coordinator Status 11/29/19 25 1 CLOSED Fetus Data First Name Last Name Admitted to NICU Weight (g) Sex Living Outcome Pediatric Complications Fetus ID Race Codes Race Delivery Type M [id number] [place] Calculation Initial Juan [...] Domestic Partner Domestic Partner Phone Father Name Drug Safety Coordinator Status 11/29/19 25 1 CLOSED Fetus Data First Name Last Name Admitted to NICU Weight (g) Sex Living Outcome Pediatric Complications Fetus ID Race Codes Race Delivery Type M [id number] z[place] Calculation Initial Juan [...] Sterilization Discharge Date Comments 0 38 BMG, Staley fetus_1_w eight_lbs : '7# 11oz'; Discharge Information Feeding Method Contraceptive Method Maternal HG B and HCT Levels Ob Episode Information Episode Created Date Number of Fetuses Patient Bloodtype Patient rh Status Prepregnancy Weight lbs Domestic Partner Domestic Partner Phone Father Name Drug Safety Coordinator Status 11/29/19 25 1 CLOSED Fetus Data First Name Last Name Admitted to NICU Weight (g) Sex Living Outcome Pediatric Complications Fetus ID Race Codes Race Delivery Type [id number] Juan Calculation Initial Juan Date Initial Exam [...]
--- OUTSIDE RECORDS SUMMARY | 2025-07-15 11:46 | XMS_ITS | Encounter Summary ---
Author Organization [facility] Address [address] [place] [address] Care Team Providers Care Wind Turbine Mechanic Name Role Phone Lakshmi Flor MD Primary Care Provider Unavailab Airam Weinstein PRESS FEEDER Primary Care Provider Unav ailable Won Faustin MD Primary Care Provider [phone] Elin Chau PRESS FEEDER Primary Care Provider [phone] Encounter Details Date Type Department Care Team (Late Contact Info) Description 07/22/2015 Abstract [facility] CONVERSION [address] [place] [address] , Generic ConversionMD Social History Tobacco Use [...] Department Care Team (Late Contact Info) Description 07/27/2025 2:20 PM CASE FINISHING MACHINE ADJUSTER Office Visit [facility] Orthopedic & Sports Medicine - [place] [address] [place] [address] Jermain Simeon MD [address] [place] [address] 10/26/2025 1:20 PM CDT Office Visit [facility] [address] [facility], [address] [place] [address] Gildardo Chao MD [address] [place] [address] documented as of this encounter Visit Diagnoses Not on filedocumented in this encounter Additional Health Concerns Infection Onset Date Last Indicated Resolved Time COVID-19 Rule Out 06/07/2021 06/07/2021 06/07/2021 11:27 AM CASE FINISHING MACHINE ADJUSTER COVID-19 Confirmed 06/07/2021 06/07/2021 12:32 AM CASE FINISHING MACHINE ADJUSTER COVID-19 Rule Out 08/07/2023 08/07/2023 08/07/2023 9:37 AM CASE FINISHING MACHINE ADJUSTER Influenza - Seasonal 08/07/2023 08/07/2023 024 12:33 AM CASE FINISHING MACHINE ADJUSTER COVID-19 Rule Out 08/07/2023 08/07/2023 08/07/2023 12:46 PM CASE FINISHING MACHINE ADJUSTER Respiratory Rule Out 11/23/2024 11/23/2024 025 7:34 PM CDT COVID-19 Rule Out 11/23/2024 11/23/2024 11/23/2024 7:33 PM CDT documented as of this encounter Care Teams Wind Turbine Mechanic Relationship Specialty Start Date End Date Lakshmi Flor MD PCP - General INTERNAL MEDICINE 09/27/17 03/18/20 Airam Daniel NP PCP - General NURSE PRACTITIONER 03/19/20 05/16/21 [place] [address] [place] [address] PCP - General FAMILY PRACTICE 05/17/21 03/18/24 Elin Chau NP [address] [place] [phone] PCP - General NURSE PRACTITIONER 03/19/24 documented as of this encounter
--- OUTSIDE RECORDS SUMMARY | 2025-07-15 11:46 | XMS_ITS | Encounter Summary ---
Author Organization [facility] Address [address] [place] [address] Care Team Providers Care End User Consultant Name Role Phone Lakshmi Flor MD Primary Care Provider Unavailab Airam Weinstein TV TECHNICIAN Primary Care Provider Unav ailable Won Faustin MD Primary Care Provider [phone] Elin Chau TV TECHNICIAN Primary Care Provider [phone] Encounter Details Date Type Department Care Team (Late Contact Info) Description 11/22/2016 Abstract [facility] CONVERSION [address] [place] [address] , Generic ConversionMD Social History Tobacco Use [...] (Late Contact Info) Description 07/27/2025 2:20 PM GPS FIELD DATA COLLECTOR Office Visit [facility] Orthopedic & Sports Medicine - [place] [address] [place], [place] [phone] Jermain Simeon MD [address] [place] [address] 10/26/2025 1:20 PM CDT Office Visit [facility] - [facility] [address] [facility], [address] [place] [address] Gildardo Chao MD [address] [place] [address] documented as of this encounter Visit Diagnoses Not on filedocumented in this encounter Additional Health Concerns Infection Onset Date Last Indicated Resolved Time COVID-19 Rule Out 06/07/2021 06/07/2021 06/07/2021 11:27 AM GPS FIELD DATA COLLECTOR COVID-19 Confirmed 06/07/2021 06/07/2021 12:32 AM GPS FIELD DATA COLLECTOR COVID-19 Rule Out 08/07/2023 08/07/2023 08/07/2023 9:37 AM GPS FIELD DATA COLLECTOR Influenza - Seasonal 08/07/2023 08/07/2023 024 12:33 AM GPS FIELD DATA COLLECTOR COVID-19 Rule Out 08/07/2023 08/07/2023 08/07/2023 12:46 PM GPS FIELD DATA COLLECTOR Respiratory Rule Out 11/23/2024 11/23/2024 025 7:34 PM CDT COVID-19 Rule Out 11/23/2024 11/23/2024 11/23/2024 7:33 PM CDT documented as of this encounter Care Teams End User Consultant Relationship Specialty Start Date End Date Lakshmi Flor MD PCP - General INTERNAL MEDICINE 09/27/17 03/18/20 Airam Daniel NP PCP - General NURSE PRACTITIONER 03/19/20 05/16/21 [place] [address] [place] [address] PCP - General FAMILY PRACTICE 05/17/21 03/18/24 Elin Chau NP [address] [place] [phone] PCP - General NURSE PRACTITIONER 03/19/24 documented as of this encounter
--- OUTSIDE RECORDS SUMMARY | 2025-07-15 11:46 | XMS_ITS | Encounter Summary ---
Author Organization [facility] Address [address] [place] [address] Care Team Providers Care Senior Cost Estimator Name Role Phone Lakshmi Flor MD Primary Care Provider Unavailab Airam Weinstein HONE OPERATOR Primary Care Provider Unav ailable Won Faustin MD Primary Care Provider [phone] Elin Chau HONE OPERATOR Primary Care Provider [phone] Encounter Details Date Type Department Care Team (Late Contact Info) Description 07/28/2016 Abstract [facility] CONVERSION [address] [place] [address] , Generic ConversionMD Social History Tobacco Use [...] (Late Contact Info) Description 07/27/2025 2:20 PM RATTLING MACHINE TENDER Office Visit [facility] Orthopedic & Sports Medicine - [place] [address] [place] [address] Jermain Simeon MD [address] [place] [address] 10/26/2025 1:20 PM CDT Office Visit [facility] - [facility] [address] [facility], [address] [place] [address] Gildardo Chao MD [address] [place] [address] documented as of this encounter Visit Diagnoses Not on filedocumented in this encounter Additional Health Concerns Infection Onset Date Last Indicated Resolved Time COVID-19 Rule Out 06/07/2021 06/07/2021 06/07/2021 11:27 AM RATTLING MACHINE TENDER COVID-19 Confirmed 06/07/2021 06/07/2021 12:32 AM RATTLING MACHINE TENDER COVID-19 Rule Out 08/07/2023 08/07/2023 08/07/2023 9:37 AM RATTLING MACHINE TENDER Influenza - Seasonal 08/07/2023 08/07/2023 024 12:33 AM RATTLING MACHINE TENDER COVID-19 Rule Out 08/07/2023 08/07/2023 08/07/2023 12:46 PM RATTLING MACHINE TENDER Respiratory Rule Out 11/23/2024 11/23/2024 025 7:34 PM CDT COVID-19 Rule Out 11/23/2024 11/23/2024 11/23/2024 7:33 PM CDT documented as of this encounter Care Teams Senior Cost Estimator Relationship Specialty Start Date End Date Lakshmi Flor MD PCP - General INTERNAL MEDICINE 09/27/17 03/18/20 Airam Daniel NP PCP - General NURSE PRACTITIONER 03/19/20 05/16/21 [place] [address] [place] [address] PCP - General FAMILY PRACTICE 05/17/21 03/18/24 Elin Chau NP [address] [place] [phone] PCP - General NURSE PRACTITIONER 03/19/24 documented as of this encounter
--- OUTSIDE RECORDS SUMMARY | 2025-07-15 11:46 | XMS_ITS | Encounter Summary ---
Author Organization [facility] Address [facility] [place] [address] Care Team Providers Care Aircraft Worker Name Role Phone Elin Chau MANAGER MULTICULTURAL Primary Care Provider [phone] Encounter Details Date Type Department Care Team (Late st Contact Info) Description 12/15/[address] [facility] Multispecialty Care - [facility] [address], [address] [place] [phone] T[place], [facility] Provider Results Social History Tobacco Use [...] st Contact Info) Description 07/27/2025 2:20 PM TIRE BLADDER MAKER Office Visit [facility] Orthopedic & Sports Medicine - [place] [address] [place] [address] Jermain Simeon MD [address] [place] [address] 10/26/2025 1:20 PM CDT Office Visit [facility] Multispecialty Care - [facility] [address] [facility], [address] [place] [address] Gildardo Chao MD [address] [place] [address] documented as of this encounter Visit Diagnoses Not on filedocumented in this encounter Care Teams Aircraft Worker Relationship Specialty Start Date End Date Thilker, Elin, MANAGER MULTICULTURAL [address] [place] [address] PCP - General NURSE PRACTITIONER 03/19/24 documented as of this encounter
--- OUTSIDE RECORDS SUMMARY | 2025-07-15 11:46 | XMS_ITS | Encounter Summary ---
Author Organization [facility] Address [address] [place] [address] Care Team Providers Care Veterinary Virologist Name Role Phone Lakshmi Flor MD Primary Care Provider Unavailab Airam Weinstein ARCHITECTURAL ENGINEER Primary Care Provider Unav ailable Won Faustin MD Primary Care Provider [phone] Elin Chau ARCHITECTURAL ENGINEER Primary Care Provider [phone] Encounter Details Date Type Department Care Team (Late Contact Info) Description 11/15/2016 Abstract [facility] CONVERSION [address] [place] [address] , Generic ConversionMD Social History Tobacco Use [...] (Late Contact Info) Description 07/27/2025 2:20 PM SHUTTLE REPAIRER Office Visit [facility] Orthopedic & Sports Medicine - [place] [address] [place], [place] [phone] Jermain Simeon MD [address] [place] [address] 10/26/2025 1:20 PM CDT Office Visit [facility] - [facility] [address] [facility], [address] [place] [phone] Gildardo Chao MD [address] [place] [address] documented as of this encounter Visit Diagnoses Not on filedocumented in this encounter Additional Health Concerns Infection Onset Date Last Indicated Resolved Time COVID-19 Rule Out 06/07/2021 06/07/2021 06/07/2021 11:27 AM SHUTTLE REPAIRER COVID-19 Confirmed 06/07/2021 06/07/2021 12:32 AM SHUTTLE REPAIRER COVID-19 Rule Out 08/07/2023 08/07/2023 08/07/2023 9:37 AM SHUTTLE REPAIRER Influenza - Seasonal 08/07/2023 08/07/2023 024 12:33 AM SHUTTLE REPAIRER COVID-19 Rule Out 08/07/2023 08/07/2023 08/07/2023 12:46 PM SHUTTLE REPAIRER Respiratory Rule Out 11/23/2024 11/23/2024 025 7:34 PM CDT COVID-19 Rule Out 11/23/2024 11/23/2024 11/23/2024 7:33 PM CDT documented as of this encounter Care Teams Veterinary Virologist Relationship Specialty Start Date End Date Lakshmi Flor MD PCP - General INTERNAL MEDICINE 09/27/17 03/18/20 Airam Daniel NP PCP - General NURSE PRACTITIONER 03/19/20 05/16/21 [place] [address] [place] [address] PCP - General FAMILY PRACTICE 05/17/21 03/18/24 Elin Chau NP [address] [place] [phone] PCP - General NURSE PRACTITIONER 03/19/24 documented as of this encounter
--- OUTSIDE RECORDS SUMMARY | 2025-07-15 11:46 | XMS_ITS | Encounter Summary ---
Author Organization [facility] Address [address] [place] [address] Care Team Providers Care Digital Content Marketing Manager Name Role Phone Lakshmi Flor MD Primary Care Provider Unavailab Airam Weinstein RESTRIKE HAMMER OPERATOR Primary Care Provider Unav ailable Won Faustin MD Primary Care Provider [phone] Elin Chau RESTRIKE HAMMER OPERATOR Primary Care Provider [phone] Encounter Details Date Type Department Care Team (Late Contact Info) Description 10/31/2014 Abstract [facility] CONVERSION [address] [place] [address] , Generic ConversionMD Social History Tobacco Use [...] (Late Contact Info) Description 07/27/2025 2:20 PM FISH PROCESSING SUPERVISOR Office Visit [facility] - [place] [address] [place], [place] [phone] Jermain Simeon MD [address] [place] [address] 10/26/2025 1:20 PM CDT Office Visit [facility] [address], [address] [place] [phone] Gildardo Chao MD [address] [place] [address] documented as of this encounter Visit Diagnoses Not on filedocumented in this encounter Additional Health Concerns Infection Onset Date Last Indicated Resolved Time COVID-19 Rule Out 06/07/2021 06/07/2021 06/07/2021 11:27 AM FISH PROCESSING SUPERVISOR COVID-19 Confirmed 06/07/2021 06/07/2021 12:32 AM FISH PROCESSING SUPERVISOR COVID-19 Rule Out 08/07/2023 08/07/2023 08/07/2023 9:37 AM FISH PROCESSING SUPERVISOR Influenza - Seasonal 08/07/2023 08/07/2023 024 12:33 AM FISH PROCESSING SUPERVISOR COVID-19 Rule Out 08/07/2023 08/07/2023 08/07/2023 12:46 PM FISH PROCESSING SUPERVISOR Respiratory Rule Out 11/23/2024 11/23/2024 025 7:34 PM CDT COVID-19 Rule Out 11/23/2024 11/23/2024 11/23/2024 7:33 PM CDT documented as of this encounter Care Teams Digital Content Marketing Manager Relationship Specialty Start Date End Date Lakshmi Flor MD PCP - General INTERNAL MEDICINE 09/27/17 03/18/20 Airam Daniel NP PCP - General NURSE PRACTITIONER 03/19/20 05/16/21 [place] [address] [place] [address] PCP - General FAMILY PRACTICE 05/17/21 03/18/24 Elin Chau NP [address] [place] [phone] PCP - General NURSE PRACTITIONER 03/19/24 documented as of this encounter
--- OUTSIDE RECORDS SUMMARY | 2025-07-15 11:46 | XMS_ITS | Encounter Summary ---
Author Organization [facility] Address [address] [place] [address] Care Team Providers Care Roadway Designer Name Role Phone Laksmhi Flor MD Primary Care Provider Unavailab Airam Weinstein CLASSROOM AIDE Primary Care Provider Unav ailable Won Faustin MD Primary Care Provider [phone] Elin Chau CLASSROOM AIDE Primary Care Provider [phone] Encounter Details Date Type Department Care Team (Late Contact Info) Description 02/27/2014 Abstract [facility] CONVERSION [address] [place] [address] , Generic ConversionMD Social History Tobacco Use [...] (Late Contact Info) Description 07/27/2025 2:20 PM MEASUREMENT OPERATOR Office Visit [facility] - [place] [address] [place] [address] Jermain Simeon MD [address] [place] [address] 10/26/2025 1:20 PM CDT Office Visit [facility] - [facility] [address] [facility], [address] [place] [phone] Gildardo Chao MD [address] [place] [address] documented as of this encounter Visit Diagnoses Not on filedocumented in this encounter Additional Health Concerns Infection Onset Date Last Indicated Resolved Time COVID-19 Rule Out 06/07/2021 06/07/2021 06/07/2021 11:27 AM MEASUREMENT OPERATOR COVID-19 Confirmed 06/07/2021 06/07/2021 12:32 AM MEASUREMENT OPERATOR COVID-19 Rule Out 08/07/2023 08/07/2023 08/07/2023 9:37 AM MEASUREMENT OPERATOR Influenza - Seasonal 08/07/2023 08/07/2023 024 12:33 AM MEASUREMENT OPERATOR COVID-19 Rule Out 08/07/2023 08/07/2023 08/07/2023 12:46 PM MEASUREMENT OPERATOR Respiratory Rule Out 11/23/2024 11/23/2024 025 7:34 PM CDT COVID-19 Rule Out 11/23/2024 11/23/2024 11/23/2024 7:33 PM CDT documented as of this encounter Care Teams Roadway Designer Relationship Specialty Start Date End Date Lakshmi Flor MD PCP - General INTERNAL MEDICINE 09/27/17 03/18/20 Airam Daniel NP PCP - General NURSE PRACTITIONER 03/19/20 05/16/21 [place] [address] [place] [address] PCP - General FAMILY PRACTICE 05/17/21 03/18/24 Elin Chau NP [address] [place] [phone] PCP - General NURSE PRACTITIONER 03/19/24 documented as of this encounter
--- OUTSIDE RECORDS SUMMARY | 2025-07-15 11:46 | XMS_ITS | Encounter Summary ---
Author Organization [facility] Address [address] [place] [address] Care Team Providers Care Medical Auditor Name Role Phone Lakshmi Flor MD Primary Care Provider Unavailab Airam Weinstein APPRISE COUNSELOR Primary Care Provider Unav ailable Won Faustin MD Primary Care Provider [phone] Elin Chau APPRISE COUNSELOR Primary Care Provider [phone] Encounter Details Date Type Department Care Team (Late Contact Info) Description 12/09/2014 Abstract [facility] CONVERSION [address] [place] [address] , Generic ConversionMD Social History Tobacco Use [...] (Late Contact Info) Description 07/27/2025 2:20 PM 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 Office Visit [facility] Orthopedic & Sports Medicine - [place] [address] [place], [place] [phone] Jermain Simeon MD [address] [place] [address] 10/26/2025 1:20 PM CDT Office Visit [facility] - [facility] [address] [facility], [address] [place] [phone] Gildardo Chao MD [address] [place] [address] documented as of this encounter Visit Diagnoses Not on filedocumented in this encounter Additional Health Concerns Infection Onset Date Last Indicated Resolved Time COVID-19 Rule Out 06/07/2021 06/07/2021 06/07/2021 11:27 AM PIPE FOREMAN COVID-19 Confirmed 06/07/2021 06/07/2021 12:32 AM PIPE FOREMAN COVID-19 Rule Out 08/07/2023 08/07/2023 08/07/2023 9:37 AM PIPE FOREMAN Influenza - Seasonal 08/07/2023 08/07/2023 024 12:33 AM PIPE FOREMAN COVID-19 Rule Out 08/07/2023 08/07/2023 08/07/2023 12:46 PM PIPE FOREMAN Respiratory Rule Out 11/23/2024 11/23/2024 025 7:34 PM CDT COVID-19 Rule Out 11/23/2024 11/23/2024 11/23/2024 7:33 PM CDT documented as of this encounter Care Teams Medical Auditor Relationship Specialty Start Date End Date Lakshmi Flor MD PCP - General INTERNAL MEDICINE 09/27/17 03/18/20 Airam Daniel NP PCP - General NURSE PRACTITIONER 03/19/20 05/16/21 [place] [address] [place] [address] PCP - General FAMILY PRACTICE 05/17/21 03/18/24 Elin Chau NP [address] [place] [phone] PCP - General NURSE PRACTITIONER 03/19/24 documented as of this encounter
--- OUTSIDE RECORDS SUMMARY | 2025-07-15 11:46 | XMS_ITS | Encounter Summary ---
Author Organization [facility] Address [address] [place] [address] Care Team Providers Care Television Service Engineer Name Role Phone Lakshmi Flor MD Primary Care Provider Unavailab Airam Weinstein WINE MERCHANT Primary Care Provider Unav ailable Won Faustin MD Primary Care Provider [phone] Elin Chau WINE MERCHANT Primary Care Provider [phone] Encounter Details Date Type Department Care Team (Late Contact Info) Description 11/12/2014 Abstract [facility] CONVERSION [address] [place] [address] , Generic ConversionMD Social History Tobacco Use [...] (Late Contact Info) Description 07/27/2025 2:20 PM 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 Office Visit [facility] Orthopedic & Sports Medicine - [place] [address] [place], [place] [phone] Jermain Simeon MD [address] [place] [address] 10/26/2025 1:20 PM CDT Office Visit [facility] - [facility] [address] [facility], [address] [place] [phone] Gildardo Chao MD [address] [place] [address] documented as of this encounter Visit Diagnoses Not on filedocumented in this encounter Additional Health Concerns Infection Onset Date Last Indicated Resolved Time COVID-19 Rule Out 06/07/2021 06/07/2021 06/07/2021 11:27 AM 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 HELPER COVID-19 Confirmed 06/07/2021 06/07/2021 12:32 AM 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 HELPER COVID-19 Rule Out 08/07/2023 08/07/2023 08/07/2023 9:37 AM 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 HELPER Influenza - Seasonal 08/07/2023 08/07/2023 024 12:33 AM 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 HELPER COVID-19 Rule Out 08/07/2023 08/07/2023 08/07/2023 12:46 PM 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 HELPER Respiratory Rule Out 11/23/2024 11/23/2024 025 7:34 PM CDT COVID-19 Rule Out 11/23/2024 11/23/2024 11/23/2024 7:33 PM CDT documented as of this encounter Care Teams Television Service Engineer Relationship Specialty Start Date End Date Lakshmi Flor MD PCP - General INTERNAL MEDICINE 09/27/17 03/18/20 Airam Daniel NP PCP - General NURSE PRACTITIONER 03/19/20 05/16/21 [place] [address] [place] [address] PCP - General FAMILY PRACTICE 05/17/21 03/18/24 Elin Chau NP [address] [place] [phone] PCP - General NURSE PRACTITIONER 03/19/24 documented as of this encounter
[2025-07-15 11:53] LABS: EDUAAPPEAR Cloudy; EDUABILI Negative (Negative); EDUABLOOD Trace (Negative); EDUACOLOR1 Dark; EDUAGLUCOSE Negative (Negative); EDUAKETONE Negative (Negative); EDUALEUKO 1+ (Negative); EDUANITRATE Negative (Negative); EDUAPH 7.0; EDUAPROTEIN Negative (Negative); EDUASPGRAVITY 1.025; EDUAUROBILI 0.2
== END 2025-07-15 11:58 | disposition home or self-care (01) ==
PROVIDERS: Emergency Provider Nurse Practitioner Family
DX: N30.00 Acute cystitis without hematuria (principal)
CPT/HCPCS: 81003; 87086; 99213; G0463